=== PATIENT | female | born 1965 | race Two or more races ===

== ENCOUNTER 2019-12-31 12:39 | Outpatient (REF) | payer MEDICARE, MEDICAID, SELFPAY | END 2019-12-31 12:40 | disposition home or self-care (01) | LOC: HO.HMGCLDS 12:39 | PROVIDERS: PCP Internal Medicine; Visit Provider Internal Medicine | DX: Z20.828 Contact with and (suspected) exposure to other viral communicable diseases (principal) | CPT/HCPCS: 36415; 87635 ==

== ENCOUNTER → 2020-01-18 10:13 | Outpatient (BNVA) | payer MEDICARE, MEDICAID, SELFPAY | PROVIDERS: PCP Internal Medicine; Referring Provider Internal Medicine; Visit Provider Physician Assistant | DX: M65.4 Radial styloid tenosynovitis [de Quervain] (principal); M79.7 Fibromyalgia; G47.00 Insomnia, unspecified; Z88.8 Allergy status to other drugs, medicaments and biological substances | CPT/HCPCS: 20550; 99213; J1020 ==

== ENCOUNTER 2020-02-14 13:15 | Outpatient (REF) | payer MEDICARE, MEDICAID, SELFPAY ==
--- NOTE | 2020-02-14 13:16 | XR_ITS ---
EXAMINATION: XR SHOULDER, LEFT CLINICAL INFORMATION: Left shoulder pain COMPARISON: 06/02/2018 TECHNIQUE: Three views of the left shoulder. FINDINGS: There is no fracture or dislocation. The glenohumeral joint is well aligned. The joint space is maintained. The acromioclavicular joint is intact with mild hypertrophic degenerative change. The visualized lung is clear. The visualized ribs are intact. XR/XR shoulder LT min 2V IMPRESSION: Mild degenerative changes of the left acromioclavicular joint.
== END 2020-02-14 13:16 | disposition home or self-care (01) ==
LOC: HO.HOSX 13:15
PROVIDERS: PCP Internal Medicine; Referring Provider Internal Medicine; Visit Provider Physician Assistant
DX: M75.82 Other shoulder lesions, left shoulder (principal)
CPT/HCPCS: 20610; 73030; 99212; J1020

== ENCOUNTER → 2020-02-18 11:38 | Outpatient (BNVA) | payer MEDICARE, MEDICAID, SELFPAY | PROVIDERS: PCP Internal Medicine; Referring Provider Internal Medicine; Visit Provider Internal Medicine Gastroenterology | DX: K59.04 Chronic idiopathic constipation (principal); R10.9 Unspecified abdominal pain; E11.65 Type 2 diabetes mellitus with hyperglycemia; E03.9 Hypothyroidism, unspecified; E78.5 Hyperlipidemia, unspecified; R63.4 Abnormal weight loss; K21.9 Gastro-esophageal reflux disease without esophagitis; R79.89 Other specified abnormal findings of blood chemistry; Z79.899 Other long term (current) drug therapy; Z79.891 Long term (current) use of opiate analgesic; Z79.84 Long term (current) use of oral hypoglycemic drugs | CPT/HCPCS: Q3014 ==

== ENCOUNTER 2020-02-28 16:12 | Outpatient (REF) | payer MEDICARE, MEDICAID, SELFPAY ==
--- NOTE | 2020-02-28 | MM_ITS ---
EXAMINATION: MM BREAST SCREENING DIGITAL TOMOSYNTHESIS, BILATERAL CLINICAL INFORMATION: Screening. Asymptomatic. The lifetime risk of breast cancer based on the Tyrer-Cuzick Model is 3.7%. COMPARISON: Mammography: 09/22/2018 and studies dating back to TECHNIQUE: Digital breast tomosynthesis is performed in both the craniocaudal and mediolateral oblique views along with computer-aided detection (CAD). Synthesized 2D images are generated from the tomosynthesis. FINDINGS: There are scattered areas of fibroglandular density (ACR BI-RADS breast composition Category b). About the medial aspect of the right breast approximately 7.0 cm from nipple, there is a 4 mm partially circumscribed density without microcalcifications for which a spot compression view is recommended and if persistent, then ultrasound could be performed at that time. There is stable appearance of the left breast. MM/MM tomosynthesis screening BI IMPRESSION: Right breast density for further evaluation as described above. ASSESSMENT: BI-RADS 0: Incomplete - Need Additional Imaging Evaluation RECOMMENDATION: 1. Additional views of the right breast 2. Targeted ultrasound if warranted after review of the additional views. 3. Radiology department staff will contact the patient for additional imaging. This patient's information was entered into a reminder system with a target due date for their next mammogram.
== END 2020-02-28 16:13 | disposition home or self-care (01) ==
LOC: HO.MAMMO 16:12
PROVIDERS: Visit Provider Internal Medicine
DX: Z12.31 Encounter for screening mammogram for malignant neoplasm of breast (principal)
CPT/HCPCS: 77063; 77067

== ENCOUNTER 2020-03-20 09:59 | Outpatient (REF) | payer MEDICARE, MEDICAID, SELFPAY ==
--- NOTE | 2020-03-20 10:03 | MM_ITS ---
EXAMINATION: MM DIAGNOSTIC DIGITAL BREAST TOMOSYNTHESIS, RIGHT US TARGETED BREAST, RIGHT CLINICAL INFORMATION: A 4 x 3 mm density medial right breast. COMPARISON: Mammography: 02/28/2020 and studies dating back to 03/30/2011. TECHNIQUE: Digital breast tomosynthesis is performed. 2D images are generated from the tomosynthesis. The following views are obtained: Spot compression craniocaudal view as well as rolled medial and lateral views. FINDINGS: There are scattered areas of fibroglandular density (ACR BI-RADS breast composition Category b). There is persistence of a circumscribed density about the medial aspect of the right breast approximately 7 cm from the nipple but which appears to have a fatty notch and is adjacent to a vessel likely representing an intramammary lymph node. ULTRASOUND: Targeted ultrasound evaluation of the medial aspect of the right breast did not demonstrate any abnormal cystic or solid masses. No region of abnormal distal sound shadowing is seen. Results are discussed with the patient at time of visit. MM/MM tomosynthesis added views R IMPRESSION: Density medial aspect of the right breast likely represents a small lymph node. Recommend 6 month follow up right breast mammogram. ASSESSMENT: BI-RADS 3: Probably Benign. RECOMMENDATION: Diagnostic mammography in 6 months. This patient's information was entered into a reminder system with a target due date for their next mammogram.
--- NOTE | 2020-03-20 10:04 | US_ITS ---
EXAMINATION: US DIAGNOSTIC BREAST, RIGHT CLINICAL INFORMATION: Density medial aspect right breast. COMPARISON: Mammography of same day and dating back to 07/25/2015. TECHNIQUE: Ultrasound of the breast is performed with real-time erickson scale imaging and color Doppler. FINDINGS: Targeted ultrasound evaluation medial aspect of the right breast did not demonstrate any abnormal cystic or solid masses. No region of abnormal distal sound shadowing is seen. Results are discussed with the patient at time of visit. US/US breast RT limited IMPRESSION: Density medial aspect of the right breast likely represents a small lymph node. Image 6 month follow-up right breast mammogram. ASSESSMENT: BI-RADS 3: Probably Benign RECOMMENDATION: Diagnostic mammography in 6 months.
== END 2020-03-20 10:00 | disposition home or self-care (01) ==
LOC: HO.MAMMO 09:59
PROVIDERS: PCP Internal Medicine; Visit Provider Internal Medicine
DX: R92.2 Inconclusive mammogram (principal)
CPT/HCPCS: 76642; 77061; 77065

== ENCOUNTER 2020-03-23 11:49 | Emergency (ER) | payer MEDICARE, MEDICAID, SELFPAY ==
[2020-03-23 12:19] VITALS: BP 114/72; PULSE 73; RESP 18; TEMP 36.8; O2SAT 98; BMI 28.1
--- NOTE | 2020-03-23 13:43 | CT_ITS ---
EXAMINATION: CT CERVICAL SPINE WITHOUT CONTRAST CLINICAL INFORMATION: Bilateral upper extremity tingling and pain. Radiating pain hand to neck COMPARISON: None TECHNIQUE: 3 minutes and axial and 2 mm thin sagittal and coronal images of cervical spine were obtained. This CT examination was performed using dose optimization techniques as appropriate, variously including the following: *Automated exposure control *Adjustment of mA and/or kV according to patient size (this includes techniques or standardized protocols for targeted exams where dose is matched to indication/reason for exam; i.e. extremities or head) *Use of iterative reconstruction technique DLP: 507 mGy-cm FINDINGS: There is mild straightening of cervical lordosis. The vertebral heights, alignment and disc heights are normal. The craniovertebral junction appears normal. There is a small bone fragment in between the dens in the right lateral mass C1 ring on axial image 32/5. It is unchanged to previous CT neck exam 09/27/2019. Otherwise the C1-C2 alignment is normal. No visible acute fracture, dislocation or lytic process seen. The prevertebral and paravertebral soft tissues are normal. Lung apices are clear. The thyroid lobes are symmetrical and normal. There are small pulmonary cysts in both lung apices. CT/CT cervical spine wo con IMPRESSION: Mild straightening of cervical lordosis. No acute fracture dislocation. There is a small bone fragment in between the right C1 lateral mass and the dense unchanged since 09/27/2019 CT neck exam.
--- NOTE | 2020-03-23 13:43 | ECG_ITS ---
Test Reason : WEAKNESS Blood Pressure : / mmHG Vent. Rate : 063 BPM Atrial Rate : 063 BPM P-R Int : 164 ms QRS Dur : 082 ms QT Int : 414 ms P-R-T Axes : 052 022 013 degrees QTc Int : 423 ms Normal sinus rhythm with sinus arrhythmia Normal ECG When compared with ECG of 07-JUL-2018 14:56, No significant change was found Referred By: Anne Marie Carranza Electronically Signed By:DARRYL HERNANDEZ
[2020-03-23 14:15] LABS: MANUAL DIFF FLAG NO
[2020-03-23 14:33] LABS: C Reactive Protein 1.17 mg/dL (< or = 0.50)
[2020-03-23 14:35] LABS: Anion Gap 11 (12-20); Blood Urea Nitrogen 13 mg/dL (9-16); Calcium 9.2 mg/dL (8.4-10.2); Carbon Dioxide 26 mmol/L (22-29); Chloride 102 mmol/L (96-108); Creatinine Clr Calc Pharmacy 88.3; Estimated Glomerular Filt Rate > 60; Glucose Random 220 mg/dL (60-115); Magnesium 2.2 mg/dL (1.6-2.6); Potassium 4.3 mmol/l (3.3-5.1); Sodium 135 mmol/L (135-145)
--- NOTE | 2020-03-23 14:37 | ED_ITS ---
HPI - General Adult General Chief complaint: General Medical Stated complaint: HAND, NECK PAIN Time Seen by Provider: 03/23/20 13:30 Source: patient Mode of arrival: ambulatory History of Present Illness HPI narrative: 54-YEAR-OLD FEMALE WITH A PAST MEDICAL HISTORY OF CONSTIPATION, DIABETES, FIBROMYALGIA, GERD, INSOMNIA, PRESENTING TO THE ED COMPLAINING OF BILATERAL HAND > LEFT, UPPER BACK, AND NECK PAIN SINCE . DENIES KNOWN INJURY/TRAUMA OR BEING WORKED UP IN THE PAST. TAKES OXYCODONE AND 800 MG IBUPROFEN AT HOME WITHOUT RELIEF. PRESENTED TO ED TODAY DUE TO NUMBNESS/TINGLING IN 4-5TH DIGITS OF LEFT HAND THIS MORNING WHICH IS DIFFERENT FROM TYPICAL SYMPTOMS. DENIES DIRECT TRAUMA/FALLS. ADMITS PAIN RADIATES FROM BILATERAL HANDS TO NECK/HEAD. DENIES FEVER, CHILLS, WEAKNESS, CP/SOB, NAUSEA/VOMITING, INCONTINENCE/RETENTION Onset (ago): month(s) Related Data Home Medications Medication Instructions Recorded Confirmed fluticasone 100 mcg-salmeterol 50 1 inh INHALATION BID 01/18/20 02/18/20 mcg/dose blistr powdr for inhalation levothyroxine 25 mcg tablet 25 mcg PO DAILY 01/18/20 metformin 500 mg tablet 500 mg PO DAILY 01/18/20 02/18/20 loratadine 10 mg capsule 10 mg PO DAILY 02/05/20 ondansetron HCl 8 mg tablet 8 mg PO DAILY tab 02/05/20 02/18/20 oxycodone 5 mg tablet 5 mg PO Q8H PRN 02/05/20 simethicone 125 mg capsule 125 mg PO TID-QID PRN 02/05/20 vjrgtne-ogwmxqixanziv-xcogdiyz 250 1 tab PO Q4-6H PRN 02/18/20 02/18/20 mg-250 mg-65 mg tablet lubiprostone 24 mcg capsule 24 mcg PO BID 02/18/20 02/18/20 Previous Rx's Medication Instructions Recorded arm brace #1 ea 01/18/20 blood sugar diagnostic #100 ea 01/18/20 lancets 28 gauge #100 ea 01/18/20 blood sugar diagnostic #100 ea 01/25/20 cholecalciferol (vitamin D3) 1,250 1,250 mcg PO QWEEK 28 Days #4 cap 02/18/20 mcg (50,000 unit) capsule pantoprazole 20 mg tablet,delayed 20 mg PO BID 30 Days #60 tab 02/18/20 release sennosides 8.6 mg tablet 17.2 mg PO BEDTIME 30 Days #60 tab 02/18/20 ibuprofen 600 mg tablet 600 mg PO TID 7 Days #21 tab 03/05/20 oxycodone 5 mg tablet 5 mg PO BID PRN 30 Days #60 tab 03/05/20 zolpidem 10 mg tablet 10 mg PO BEDTIME PRN 30 Days #30 03/05/20 tab blood sugar diagnostic #150 ea 03/10/20 insulin glargine 100 unit/mL (3 20 unit SUBCUT DAILY 30 Days #6 ml 03/10/20 mL) subcutaneous pen lancets 28 gauge #100 ea 03/10/20 pen needle, diabetic 32 gauge x #50 ea 03/10/20 blood sugar diagnostic #100 ea 03/11/20 blood-glucose meter #1 ea 03/11/20 lancets #100 ea 03/11/20 cholecalciferol (vitamin D3) 50 50 mcg PO DAILY 30 Days #30 cap 03/13/20 mcg (2,000 unit) capsule cyclobenzaprine 5 mg PO Q8H PRN 5 Days #14 tab 03/23/20 Allergies Allergy/AdvReac Type Severity Reaction Status Date / Time pregabalin [From LYRICA] Allergy Intermediate STOMACH Verified 02/14/20 13:27 UPSET gadobutrol [From GADAVIST] Allergy Mild ANAPHYLAXIS Verified 02/14/20 13:27 hydroxychloroquine Allergy Unknown unknown Verified 02/14/20 13:27 [Plaquenil] Iodinated Contrast Media Allergy Unknown DIFF Verified 02/14/20 13:27 [CONTRAST, IV] BREATHING levofloxacin [From LEVAQUIN] Allergy Unknown ITCHY RASH Verified 02/14/20 13:27 tramadol Allergy Unknown abdominal Verified 02/14/20 13:27 pain contrast dye Allergy Unknown unknown Uncoded 01/18/20 10:24 lyrica Allergy Unknown swelling Uncoded 08/08/19 00:00 Plaquenil Allergy Unknown rash Uncoded 08/08/19 00:00 Statins Support Allergy Unknown transaminit Uncoded 08/08/19 00:00 is MRI contrast (gadolinium) AdvReac Unknown anaphylaxis Uncoded 08/08/19 00:00 Review of Systems Review of Systems: Constitutional: No Weight loss, No Fever, No Chills Eyes: No Vision Changes Cardiovascular: No Chest Pain, No SOB, No Edema, No Palpitations Respiratory: No Cough, No Sputum, No Wheezing, No Smoke Exposure, No Dyspnea Gastrointestinal: No Nausea, No Vomiting, No Diarrhea, No Constipation, No Abdominal pain Genitourinary: No irregular bleeding, No Dysuria, No Urinary Frequency, No Hematuria, No urinary incontinence or retention Musculoskeletal: + joint pain,+back/neck pain, + Myalgias, No Joint Swelling Skin: No Skin Lesions, No rash Neuro: No Weakness, + Numbness, + Paresthesias, No Dizziness, + Headache Yes all other systems are reviewed and are negative [facility] Past Medical History Attestation statement: The following information was validated with the patient. Medical History (Updated 03/23/20 @ 15:44 by LUIS A Hutton) Chronic idiopathic constipation Diabetes type 2, uncontrolled Fibromyalgia GERD (gastroesophageal reflux disease) Insomnia Low vitamin D level Weight loss Surgical History (Updated 02/23/20 @ 17:14 by Critsal Butler MD) History of esophagogastroduodenoscopy (EGD) History of thyroidectomy, total Hx of colonoscopy Family History Family History (Updated 02/23/20 @ 17:16 by Cristal Butler MD) Father Status post liver transplant, biliary anastomotic size mismatch Brother No problems noted. Mother No problems noted. Social History Social History Household Members: None Alcohol intake: never Smoking Status: Never smoker Smoked in Last 30 Days: No Use of substances other than those prescribed or required for medical reasons: No Advance Directives: No Advance Directives Information Provided: Yes Current occupational status: disabled Current occupation: rt handed Physical Exam Vital Signs: Vital Signs: Last Vital Signs Temp 98.3 F 03/23/20 12:19 Pulse 61 03/23/20 15:11 Resp 16 03/23/20 15:11 BP 102/49 L 03/23/20 15:11 Pulse Ox 98 03/23/20 15:11 Body Mass Index 28.1 Const: General: cooperative and healthy appearing Orientation/consciousness: patient oriented x3 Limitations: no limitations HENMT: Head: Yes normal to inspection Ears: hearing grossly normal bilaterally General nose exam: Normal external nose present Face and sinus: Yes normal facial exam Eyes: General: appearance normal, both eyes and all related structures EOM: EOMs intact bilaterally Neck: Other: + bilateral paraspinal MSK tenderness. No midline cervical spinous tenderness or step-offs. No deformity Neck: Yes normal visual inspection Resp: Effort & Inspection: normal respiratory effort Auscultation: clear to auscultation bilaterally, no rales, no rhonchi and no wheezes Cardio: Rate: regular rate Heart sounds: S1 normal heart sound present and S2 normal heart sound present Peripheral pulses: radial pulses present GI: Inspection: Yes normal to inspection Palpation (GI): Soft to palpation, nontender, no guarding and not rigid Back/Spine/Pelvis: Other: + bilateral MSK upper/midthoracic tenderness. No midline thoracic/lumbar spinous tenderness Skin: Rashes: no rashes Wounds: no wounds Neuro: Other: No saddle anesthesia General: patient oriented x3, tone normal and moves all extremities Gait exam (Neuro): Normal gait present Extrem: Other: Bilateral hand/wrist/distal forearm ttp. No appreciable deformity. NV & FROM intact +Phalen's sign General: Yes normal to inspection Course Course Course Narrative: * ESR mildly elevated at 37, CRP 1.1 * Troponin negative, labs otherwise unremarkable CT cervical spine wo con IMPRESSION: Mild straightening of cervical lordosis. No acute fracture dislocation. There is a small bone fragment in between the right C1 lateral mass and the dense unchanged since 09/27/2019 CT neck exam. * Lab and imaging results discussed with patient including worrisome signs and symptoms and strict return precautions. Patient is to follow-up with orthopedics and [facility] as well as her PCP. She verbalized understanding feel safe for discharge home Medical Decision Making MDM Narrative Medical decision making narrative: 54-YEAR-OLD FEMALE WITH A PAST MEDICAL HISTORY OF CONSTIPATION, DIABETES, FIBROMYALGIA, GERD, INSOMNIA, PRESENTING TO THE ED COMPLAINING OF BILATERAL HAND > LEFT, UPPER BACK, AND NECK PAIN SINCE . REPORTS NUMBNESS/TINGLING IN 4-5TH DIGITS OF LEFT HAND THIS MORNING WHICH IS DIFFERENT FROM TYPICAL SYMPTOMS. ON EXAM VSS, NAD/WELL-APPEARING, NO MIDLINE SPINOUS TENDERNESS/SADDLE ANESTHESIA OR RED FLAG SYMPTOMS. PHYSICAL EXAM ABOVE. CONCERN FOR POSSIBLE ? IMPINGEMENT/STENOSIS VS CARPAL TUNNEL VS FIBROMYALGIA. LOW CONCERN FOR SEPTIC JOINT/COMPARTMENT SYNDROME OR CAUDA EQUINA. RULE OUT ACS PLAN: EKG, LABS, CERVICAL SPINE CT, REASSESS Lab Data Result diagrams: 03/23/20 14:03 03/23/20 14:03 Labs: Lab Results 03/23/20 03/23/20 03/23/20 Range/Units 14:03 14:03 14:03 WBC 6.0 (4.8-10.8) X10*3/uL RBC 4.21 (4.20-5.50) X10*6/uL Hgb 12.4 (12.0-16.0) g/dl Hct 36.8 L (37-47) % MCV 87.4 (80-98) fL MCH 29.5 (27.0-33.0) pg MCHC 33.7 (31.0-35.0) g/dl RDW 12.1 (11.0-16.0) % Plt Count 288 (160-400) X10*3/uL MPV 9.2 L (9.4-12.3) fL Immature Gran % (Auto) 0.3 (0.0-0.4) % Neut % (Auto) 58.8 (45-73) % Lymph % (Auto) 34.1 (20-40) % Pickett % (Auto) 5.8 (2-11) % Eos % (Auto) 0.5 (0-4) % Baso % (Auto) 0.5 (0-2) % Lymph # (Auto) 2.1 (1.2-4.9) X10*3/uL Pickett # (Auto) 0.4 (0.1-1.2) X10*3/uL Eos # (Auto) 0.0 (0.0-0.4) X10*3/uL Baso # (Auto) 0.0 (0.0-0.2) X10*3/uL Abs Immat Gran (auto) 0.02 (0.00-0.03) X10*3/uL Absolute Neuts (auto) 3.5 (2.0-8.3) X10*3/uL Absolute Nucleated RBC 0.000 (0.0-0.012) X10*3/uL Nucleated RBC % (auto) 0.0 (0.0-0.2) /100WBC ESR (0-20) MM/HR Sodium 135 (135-145) mmol/L Potassium 4.3 (3.3-5.1) mmol/l Chloride 102 (96-108) mmol/L Carbon Dioxide 26 (22-29) mmol/L Anion Gap 11 L (12-20) BUN 13 (9-16) mg/dL Creatinine 0.80 (0.5-1.4) mg/dL Estim Creat Clear Calc 88.3 Estimated GFR > 60 Random Glucose 220 H (60-115) mg/dL Calcium 9.2 (8.4-10.2) mg/dL Magnesium 2.2 (1.6-2.6) mg/dL Troponin I High Sens < 3.5 (<3.5-17.0) ng/L C-Reactive Protein (< or = 0.50) mg/dL 03/23/20 03/23/20 Range/Units 14:03 14:03 WBC (4.8-10.8) X10*3/uL RBC (4.20-5.50) X10*6/uL Hgb (12.0-16.0) g/dl Hct (37-47) % MCV (80-98) fL MCH (27.0-33.0) pg MCHC (31.0-35.0) g/dl RDW (11.0-16.0) % Plt Count (160-400) X10*3/uL MPV (9.4-12.3) fL Immature Gran % (Auto) (0.0-0.4) % Neut % (Auto) (45-73) % Lymph % (Auto) (20-40) % Pickett % (Auto) (2-11) % Eos % (Auto) (0-4) % Baso % (Auto) (0-2) % Lymph # (Auto) (1.2-4.9) X10*3/uL Pickett # (Auto) (0.1-1.2) X10*3/uL Eos # (Auto) (0.0-0.4) X10*3/uL Baso # (Auto) (0.0-0.2) X10*3/uL Abs Immat Gran (auto) (0.00-0.03) X10*3/uL Absolute Neuts (auto) (2.0-8.3) X10*3/uL Absolute Nucleated RBC (0.0-0.012) X10*3/uL Nucleated RBC % (auto) (0.0-0.2) /100WBC ESR 37 H (0-20) MM/HR Sodium (135-145) mmol/L Potassium (3.3-5.1) mmol/l Chloride (96-108) mmol/L Carbon Dioxide (22-29) mmol/L Anion Gap (12-20) BUN (9-16) mg/dL Creatinine (0.5-1.4) mg/dL Estim Creat Clear Calc Estimated GFR Random Glucose (60-115) mg/dL Calcium (8.4-10.2) mg/dL Magnesium (1.6-2.6) mg/dL Troponin I High Sens (<3.5-17.0) ng/L C-Reactive Protein 1.17 H (< or = 0.50) mg/dL Discharge Plan Discharge Clinical Impression: Myalgia, Arm paresthesia, left Patient Disposition: Home, Self-Care Instructions: Musculoskeletal Pain (ED) Additional Instructions: Your blood work was reassuring today in the ED Your heart enzyme was negative A CT scan of her neck did not show any acute fracture or dislocation, showed old findings that were seen on prior CT neck in September of 2019 It is important for you to establish care with a spine doctor as well as an orthopedic doctor Follow-up with her primary care doctor Continue taking previously prescribed medications In addition start taking muscle relaxer, Flexeril, however take at night as it makes you drowsy, do not drive, drink alcohol, or operate machinery while taking it If pain persists or worsens, chest pain, shortness of breath, or weakness return to the ED [facility] [address] [place] [id number] Prescriptions: New cyclobenzaprine 5 mg tablet 5 mg PO Q8H PRN (Reason: pain (scale score 7-10)) 5 Days Qty: 14 RF: 0 No Action (DME) lancets [FreeStyle Lancets] 28 gauge misc See Rx Instructions .MEDSUPPLY Qty: 100 RF: 3 (DME) FreeStyle Test Strip See Rx Instructions .MEDSUPPLY Qty: 100 RF: 6 (DME) FreeStyle Lite Strips Strip See Rx Instructions .ROUTE .MEDSUPPLY Qty: 100 RF: 3 simethicone [Gas Relief (simethicone)] 125 mg capsule 125 mg PO TID-QID PRNRF: 0 ondansetron HCl 8 mg tablet 8 mg PO DAILY RF: 0 loratadine 10 mg capsule 10 mg PO DAILY RF: 0 oxycodone 5 mg tablet 5 mg PO Q8H PRNRF: 0 ibuprofen 600 mg tablet 600 mg PO TID 7 Days Qty: 21 RF: 0 oxycodone 5 mg tablet 5 mg PO BID PRN (Reason: pain) 30 Days Qty: 60 RF: 0 zolpidem 10 mg tablet 10 mg PO BEDTIME PRN (Reason: insomnia) 30 Days Qty: 30 RF: 0 Lantus Solostar U-100 Insulin 100 unit/mL (3 mL) insulin pen 20 unit subcut DAILY 30 Days Qty: 6 RF: 5 (DME) pen needle, diabetic [BD Alivia 2nd Gen Pen Needle] 32 gauge x 5/32 needle See Rx Instructions .MEDSUPPLY Qty: 50 RF: 4 (DME) FreeStyle Lite Strips Strip See Rx Instructions .ROUTE .MEDSUPPLY Qty: 150 RF: 6 (DME) lancets [FreeStyle Lancets] 28 gauge misc See Rx Instructions .MEDSUPPLY Qty: 100 RF: 6 (DME) blood-glucose meter [Accu-Chek Nettie Plus Meter] Misc See Rx Instructions .ROUTE .MEDSUPPLY Qty: 1 RF: 0 (DME) Accu-Chek Nettie Plus test strp Strip See Rx Instructions .ROUTE .MEDSUPPLY Qty: 100 RF: 6 (DME) lancets [Accu-Chek Fastclix Lancet Drum] Misc See Rx Instructions .ROUTE .MEDSUPPLY Qty: 100 RF: 6 cholecalciferol (vitamin D3) 50 mcg (2,000 unit) capsule 50 mcg PO DAILY 30 Days Qty: 30 RF: 3 Amitiza 24 mcg capsule 24 mcg PO BID RF: 0 Excedrin Migraine 250-250-65 mg tablet 1 tab PO Q4-6H PRNRF: 0 pantoprazole 20 mg tablet,delayed release (DR/EC) 20 mg PO BID 30 Days Qty: 60 RF: 4 sennosides [senna] 8.6 mg tablet 17.2 mg PO BEDTIME 30 Days Qty: 60 RF: 4 cholecalciferol (vitamin D3) 1,250 mcg (50,000 unit) capsule 1,250 mcg PO QWEEK 28 Days Qty: 4 RF: 2 levothyroxine 25 mcg tablet 25 mcg PO DAILY RF: 0 metformin 500 mg tablet 500 mg PO DAILY RF: 0 fluticasone propion-salmeterol [Advair Diskus] 100-50 mcg/dose blister with d evice 1 inh inhalation BID RF: 0 (DME) Wrist Brace Misc See Rx Instructions .MEDSUPPLY Qty: 1 RF: 0 Referrals: Sharon Mathias PA-C [Physician [facility] Of Field Operations] - 5 days
[2020-03-23 14:41] LABS: Troponin-I High Sensitivity < 3.5 ng/L (<3.5-17.0)
[2020-03-23 14:47] LABS: Basophils Percent Auto 0.5 % (0-2); Eosinophils Percent Auto 0.5 % (0-4); Hematocrit 36.8 % (37-47); Hemoglobin 12.4 g/dl (12.0-16.0); Imm Gran Abs Auto 0.02 X10*3/uL (0.00-0.03); Imm Gran Pct Auto 0.3 % (0.0-0.4); Lymphocytes Absolute Auto 2.1 X10*3/uL (1.2-4.9); Lymphocytes Percent Auto 34.1 % (20-40); Mean Corpuscular HGB Conc 33.7 g/dl (31.0-35.0); Mean Corpuscular Hemoglobin 29.5 pg (27.0-33.0); Mean Corpuscular Volume 87.4 fL (80-98); Mean Platelet Volume 9.2 fL (9.4-12.3); Monocytes Absolute Auto 0.4 X10*3/uL (0.1-1.2); Monocytes Percent Auto 5.8 % (2-11); Neutrophils Absolute Auto 3.5 X10*3/uL (2.0-8.3); Neutrophils Percent Auto 58.8 % (45-73); Platelet Count 288 X10*3/uL (160-400); Red Blood Count 4.21 X10*6/uL (4.20-5.50); Red Cell Distribution Width 12.1 % (11.0-16.0)
[2020-03-23] MEDS: Cyclobenzaprine HCl 10 MG TABLET PO (15:09)
[2020-03-23 15:11] VITALS: BP 102/49; PULSE 61; RESP 16; O2SAT 98
[2020-03-23 15:16] LABS: Erythrocyte Sedimentation Rate 37 MM/HR (0-20)
== END 2020-03-23 15:58 | disposition home or self-care (01) ==
PROVIDERS: Physician Assistant; Emergency Provider Emergency Medicine Emergency Medical Services; PCP Internal Medicine
DX: M79.10 Myalgia, unspecified site (principal); M54.2 Cervicalgia; R20.2 Paresthesia of skin; M79.602 Pain in left arm; Z79.899 Other long term (current) drug therapy
CPT/HCPCS: 36415; 72125; 80048; 83735; 84484; 85025; 85652; 86140; 93005; 99284

== ENCOUNTER → 2020-03-31 13:23 | Outpatient (BNVA) | payer MEDICARE, MEDICAID, SELFPAY | PROVIDERS: PCP Internal Medicine; Referring Provider Internal Medicine; Visit Provider Internal Medicine Endocrinology, Diabetes & Metabolism | DX: Z13.89 Encounter for screening for other disorder (principal) | CPT/HCPCS: Q3014 ==

== ENCOUNTER → 2020-04-04 14:44 | Outpatient (BNVA) | payer MEDICARE, MEDICAID, SELFPAY | PROVIDERS: PCP Internal Medicine; Visit Provider Student in an Organized Health Care Education/Training Program | DX: Z13.89 Encounter for screening for other disorder (principal) | CPT/HCPCS: Q3014 ==

== ENCOUNTER 2020-04-11 15:18 | Outpatient (REF) | payer MEDICARE, MEDICAID, SELFPAY ==
--- NOTE | 2020-04-11 15:25 | XR_ITS ---
EXAMINATION: XR HAND, LEFT CLINICAL INFORMATION: Pain COMPARISON: None TECHNIQUE: PA, lateral, and oblique views of the left hand. FINDINGS: No fracture or dislocation is seen. There is severe arthritis at the first JAIL joint with joint space narrowing and osteophyte formation. There may be mild radial subluxation of the first metacarpal bone with respect to the trapezium There is mild osteoarthritis at the DIP joints, greatest in the DIP joint of the second finger. Joint spaces are otherwise normal. Soft tissues are normal. 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 Mild osteoarthritis at the DIP joints.
== END 2020-04-11 15:19 | disposition home or self-care (01) ==
LOC: HO.XRAY 15:18
PROVIDERS: PCP Internal Medicine; Visit Provider Student in an Organized Health Care Education/Training Program
DX: M79.642 Pain in left hand (principal)
CPT/HCPCS: 73130

== ENCOUNTER 2020-05-08 08:47 | Outpatient (REF) | payer MEDICARE, MEDICAID, SELFPAY ==
--- NOTE | 2020-05-08 08:51 | EMG_ITS ---
Left median and ulnar motor and sensory studies were performed. Left radial sensory study was performed and paraspinal muscles were tested. IMPRESSION: 1. Mild left median neuropathy across carpal tunnel. 2. Mild left ulnar neuropathy across cubital tunnel. MD TRISTA Miller/ABE / [id number]
== END 2020-05-08 08:48 | disposition home or self-care (01) ==
LOC: HO.NEURO 08:47
PROVIDERS: Visit Provider Internal Medicine
DX: R20.0 Anesthesia of skin (principal)
CPT/HCPCS: 95886; 95909

== ENCOUNTER 2020-05-19 11:00 | Outpatient (REF) | payer MEDICARE, MEDICAID, SELFPAY | END 2020-05-19 11:01 | disposition home or self-care (01) | LOC: HO.LAB 11:00 | PROVIDERS: PCP Internal Medicine; Visit Provider Internal Medicine | DX: Z20.822 Contact with and (suspected) exposure to COVID-19 (principal) | CPT/HCPCS: 36415; C9803; U0003; U0005 ==

== ENCOUNTER 2020-06-25 12:53 | Outpatient (REF) | payer MEDICARE, MEDICAID, SELFPAY ==
[2020-06-25 14:32] LABS: Alanine Aminotransferase 18 U/L (0-31); Albumin Level 4.1 g/dL (3.5-5.0); Alkaline Phosphatase 90 U/L (39-117); Anion Gap 14 (12-20); Aspartate Amino Transferase 14 U/L (5-31); Bilirubin Total 0.5 mg/dL (0.0-1.0); Blood Urea Nitrogen 14 mg/dL (9-16); Carbon Dioxide 25 mmol/L (22-29); Chloride 101 mmol/L (96-108); Cholesterol 210 mg/dL; Estimated Glomerular Filt Rate > 60; Glucose Fasting 184 mg/dL (60-99); HDL Cholesterol 51 mg/dL; LDL Cholesterol Calculated 139 mg/dl; Potassium 4.1 mmol/L (3.3-5.1); Sodium 136 mmol/L (135-145); Total Protein 7.6 g/dL (6.5-8.0); Triglycerides 100 mg/dL
[2020-06-25 14:41] LABS: Estimated Average Glucose 237 mg/dL; Hemoglobin A1c % 9.9 %
[2020-06-25 14:54] LABS: Thyroid Stimulating Hormone 28.97 uIU/mL (0.32-4.0)
[2020-06-25 15:12] LABS: Vitamin B12 423 pg/mL (200-900)
[2020-06-25 15:22] LABS: Creatinine Urine 169.19 mg/dL; Microalbum/Creatinine Ratio Ur 6.5 ug/mg cr
[2020-06-26 05:52] LABS: LDL Cholesterol Direct 142 mg/dL (<100)
== END 2020-06-25 12:54 | disposition home or self-care (01) ==
LOC: HO.LAB 12:53
PROVIDERS: Student in an Organized Health Care Education/Training Program; PCP Internal Medicine; Visit Provider Internal Medicine Endocrinology, Diabetes & Metabolism
DX: E11.65 Type 2 diabetes mellitus with hyperglycemia (principal)
CPT/HCPCS: 36415; 80053; 80061; 82043; 82607; 83036; 83721; 84439; 84443

== ENCOUNTER → 2020-07-01 14:49 | Outpatient (BNVA) | payer MEDICARE, MEDICAID, SELFPAY | PROVIDERS: PCP Internal Medicine; Visit Provider Surgery | DX: N63.12 Unspecified lump in the right breast, upper inner quadrant (principal) | CPT/HCPCS: 99202 ==

== ENCOUNTER 2020-07-04 13:13 | Outpatient (REF) | payer MEDICARE, MEDICAID, SELFPAY ==
--- NOTE | ~2020-07-04 | CT_ITS ---
EXAMINATION: CT CHEST WITHOUT CONTRAST CLINICAL INFORMATION: Lung disorder. COMPARISON: Chest x-ray December 2016 TECHNIQUE: Multidetector volumetric CT imaging of the chest was done. Axial MIP volume rendering provided. Sagittal and coronal reformatted images were obtained. This CT examination was performed using dose optimization techniques as appropriate, variously including the following: *Automated exposure control *Adjustment of mA and/or kV according to patient size (this includes techniques or standardized protocols for targeted exams where dose is matched to indication/reason for exam; i.e. extremities or head) *Use of iterative reconstruction technique DLP: 282 mGy-cm FINDINGS: LUNGS: There is small apical bullous disease bilaterally, greater on the right than left. There are tiny scattered bilateral rounded calcifications, more prominent on the right greater than left, the largest measuring 2 mm compatible with calcified granulomas. Lungs otherwise clear. MEDIASTINUM: The mediastinum is normal. PLEURA: There is no pleural effusion. No pleural mass or thickening. AXILLA: No lymphadenopathy. UPPER ABDOMEN: Status post cholecystectomy. OSSEOUS STRUCTURES: Multilevel spondylosis of the dorsal spine manifested by endplate osteophytes at multiple levels along with mild disc space narrowing. No fracture or bone lesion. CT/CT chest wo con IMPRESSION: No acute disease. Minimal apical bullous disease. Small bilateral calcified nodules likely granulomas. No followup necessary for these benign-appearing nodules.
== END 2020-07-04 13:14 | disposition home or self-care (01) ==
LOC: HO.CT 13:13
PROVIDERS: PCP Internal Medicine; Visit Provider Internal Medicine
DX: J98.4 Other disorders of lung (principal)
CPT/HCPCS: 71250

== ENCOUNTER → 2020-07-07 13:30 | Outpatient (BNVA) | payer MEDICARE, MEDICAID, SELFPAY | PROVIDERS: PCP Internal Medicine; Visit Provider Internal Medicine Endocrinology, Diabetes & Metabolism | DX: E11.65 Type 2 diabetes mellitus with hyperglycemia (principal); E11.42 Type 2 diabetes mellitus with diabetic polyneuropathy; Z79.4 Long term (current) use of insulin; E89.0 Postprocedural hypothyroidism; E78.5 Hyperlipidemia, unspecified; R79.89 Other specified abnormal findings of blood chemistry | CPT/HCPCS: Q3014 ==

== ENCOUNTER → 2020-07-23 14:52 | Outpatient (BNVA) | payer MEDICARE, MEDICAID, SELFPAY | PROVIDERS: PCP Internal Medicine; Visit Provider Internal Medicine Pulmonary Disease | DX: J43.9 Emphysema, unspecified (principal); R06.00 Dyspnea, unspecified | CPT/HCPCS: 99202 ==

== ENCOUNTER 2020-10-01 12:41 | Outpatient (REF) | payer MEDICARE, MEDICAID, SELFPAY ==
--- NOTE | 2020-10-01 14:08 | PFT_ITS ---
INDICATION: COPD. SPIROMETRY: The FEV1 to FVC 80% with an FEV1 of 2.53 L, which is 85% predicted, and an FVC of 3.17 L, which is 82% predicted. No significant response to bronchodilators noted. Maximum voluntary ventilation 78% predicted. LUNG VOLUMES: Total lung capacity 89% predicted. DIFFUSION CAPACITY: DLCO 82% predicted. Flow volume loop appears to have some slight concavity to the expiratory limb suggesting an obstructive physiology, although not definitive based on the spirometry. COMPARISONS: PFTs in 2019. INTERPRETATION: No obstructive nor restrictive ventilatory defects identified. No significant response to bronchodilators noted. There is a mild decrease in maximum voluntary ventilation, which could be due to deconditioning. Lung volumes are within normal limits. Diffusion capacity within normal limits as well. Again, flow volume loop appears to have evidence of some obstructive physiology with a concavity in the expiratory limb. When compared to 2019, there is a trend increase in the FVC, no significant change in the FEV1, significant improvement in the total lung capacity, and a significant improvement in the diffusion capacity. Clinical correlation warranted. Kiko Garzon MD MR/MODL / [id number]
== END 2020-10-01 12:42 | disposition home or self-care (01) ==
LOC: HO.RESP 12:41
PROVIDERS: PCP Internal Medicine; Visit Provider Internal Medicine Pulmonary Disease
DX: R06.00 Dyspnea, unspecified (principal); R91.1 Solitary pulmonary nodule; J44.9 Chronic obstructive pulmonary disease, unspecified
CPT/HCPCS: 94060; 94727; 94729

== ENCOUNTER 2020-10-08 12:50 | Outpatient (REF) | payer MEDICARE, MEDICAID, SELFPAY ==
--- NOTE | ~2020-10-08 | MM_ITS ---
EXAMINATION: MM DIAGNOSTIC DIGITAL BREAST TOMOSYNTHESIS, RIGHT CLINICAL INFORMATION: Short interval six-month follow-up probable benign nodular asymmetry mid medial right breast. No ultrasound correlate. The lifetime risk of breast cancer based on the Tyrer-Cuzick Model is 11%. COMPARISON: Mammography: 03/20/2020, 02/28/2020 (BI-RADS 0), 04/24/2018, 08/19/2017; targeted right breast ultrasound 03/20/2020 TECHNIQUE: Digital breast tomosynthesis is performed in both the craniocaudal and mediolateral oblique views along with computer-aided detection (CAD). Synthesized 2D images are generated from the tomosynthesis. FINDINGS: There are scattered areas of fibroglandular density (ACR BI-RADS breast composition Category b). There is fine fibronodular parenchymal pattern similar to prior exams. The benign-appearing nodular asymmetry mid medial right breast is less conspicuous. There is no spiculation or associated calcification. No developing density. Right breast will be reassessed again at time of annual bilateral exam, due in 6 months. Results are provided to the patient at time of visit by the technologist. MM/MM tomosynthesis diagnostic RT IMPRESSION: Probable benign small nodular asymmetry mid medial breast stable to decreased. ASSESSMENT: BI-RADS 3: Probably Benign RECOMMENDATION: Diagnostic mammography at time of annual bilateral exam, due 6 months. This patient's information was entered into a reminder system with a target due date for their next mammogram.
== END 2020-10-08 12:51 | disposition home or self-care (01) ==
LOC: HO.MAMMO 12:50
PROVIDERS: Visit Provider Internal Medicine
DX: R92.2 Inconclusive mammogram (principal)
CPT/HCPCS: 77061; 77065

== ENCOUNTER → 2020-10-14 10:53 | Outpatient (BNVA) | payer MEDICARE, MEDICAID, SELFPAY | PROVIDERS: PCP Internal Medicine; Visit Provider Internal Medicine Endocrinology, Diabetes & Metabolism | DX: E11.65 Type 2 diabetes mellitus with hyperglycemia (principal); E11.42 Type 2 diabetes mellitus with diabetic polyneuropathy; E89.0 Postprocedural hypothyroidism; K21.9 Gastro-esophageal reflux disease without esophagitis; J45.909 Unspecified asthma, uncomplicated; E55.9 Vitamin D deficiency, unspecified; E78.5 Hyperlipidemia, unspecified; M85.80 Other specified disorders of bone density and structure, unspecified site; M79.7 Fibromyalgia; Z87.891 Personal history of nicotine dependence; Z88.8 Allergy status to other drugs, medicaments and biological substances; Z91.041 Radiographic dye allergy status; Z79.4 Long term (current) use of insulin; Z79.899 Other long term (current) drug therapy | CPT/HCPCS: 82947; 99212 ==

== ENCOUNTER 2020-10-30 13:45 | Outpatient (REF) | payer MEDICARE, MEDICAID, SELFPAY ==
--- NOTE | ~2020-10-30 | US_ITS ---
EXAMINATION: US ABDOMEN COMPLETE CLINICAL INFORMATION: Unspecified abdominal pain. COMPARISON: X-ray abdomen dated 12/25/2018. CT abdomen and pelvis without contrast dated 07/07/2018. Ultrasound abdomen complete dated 09/24/2016 and 12/30/2014. MR abdomen without and with contrast dated 07/02/2014. KUB dated 05/22/2014. TECHNIQUE: Real-time imaging of the abdominal viscera. Technically difficult study secondary to bowel gas. FINDINGS: PANCREAS: Head and body the pancreas are normal. The tail is not well visualized due to bowel gas. ABDOMINAL AORTA: The proximal, mid, and distal segments are normal in caliber. INFERIOR VENA CAVA: Visualized portions are normal. LIVER: The liver is normal in size. The liver contour is normal. Liver echotexture is slightly increased. No focal hepatic lesion. There is no intrahepatic biliary duct dilatation seen. GALLBLADDER: Surgically absent. COMMON BILE DUCT: The common bile duct measures 1.2 cm in diameter. This is unchanged prior exams and may be normal cholecystectomy. RIGHT KIDNEY: Normal. No hydronephrosis. No renal calculi or focal parenchymal lesions. The kidney measures 11.0 cm in maximum dimension. LEFT KIDNEY: Normal. No hydronephrosis. No renal calculi or focal parenchymal lesions. The kidney measures 11.0 cm in maximum dimension. SPLEEN: The spleen is slightly enlarged. The spleen measures 13.5 cm in maximum dimension. FREE FLUID: None. US/US abdomen complete IMPRESSION: Post cholecystectomy. Mild dilatation of the common bile duct. This is unchanged from previous ultrasound and may be normal postcholecystectomy. Slightly echogenic liver probably representing fatty infiltration. Slightly enlarged spleen. Limited visualization of the tail the pancreas.
== END 2020-10-30 13:46 | disposition home or self-care (01) ==
LOC: HO.US 13:45
PROVIDERS: PCP Internal Medicine; Visit Provider Internal Medicine
DX: R10.9 Unspecified abdominal pain (principal)
CPT/HCPCS: 76700

== ENCOUNTER → 2020-11-11 11:32 | Outpatient (BNVA) | payer MEDICARE, MEDICAID, SELFPAY | PROVIDERS: PCP Internal Medicine; Visit Provider Surgery | DX: N63.10 Unspecified lump in the right breast, unspecified quadrant (principal) | CPT/HCPCS: 99212 ==

== ENCOUNTER 2020-11-20 10:18 | Outpatient (REF) | payer MEDICARE, MEDICAID, SELFPAY ==
--- NOTE | ~2020-11-20 | XR_ITS ---
EXAMINATION: XR KNEE, RIGHT CLINICAL INFORMATION: Rheumatoid arthritis. COMPARISON: Prior radiographs, most recently 10/24/2019. TECHNIQUE: AP, lateral and sunrise views of the right knee are submitted. FINDINGS: Bony alignment and mineralization are normal. The lateral, medial and patellofemoral joint space compartments are well-maintained. There is mild peripheral osteophyte formation of the superior articular surface of the patella. No fracture or dislocation is seen. There is a very small joint effusion. No foreign body is seen. XR/XR knee RT 3V IMPRESSION: 1. There is mild osteoarthritic change of the patellofemoral joint space compartment of the right knee. 2. There is a very small right knee joint effusion. EXAMINATION: XR KNEE, LEFT CLINICAL INFORMATION: Rheumatoid arthritis. COMPARISON: Prior radiographs, most recently 10/24/2019. TECHNIQUE: AP, lateral and sunrise views views of the left knee are submitted. FINDINGS: Alignment and mineralization are normal. The lateral, medial and patellofemoral joint space compartments are well-maintained. There is slight peripheral osteophyte formation of the medial and patellofemoral joint space compartment. No fracture or dislocation is seen. There is a very small joint effusion. No foreign body is seen IMPRESSION: 1. There is minimal osteoarthritic change of the medial and patellofemoral joint space compartments of the left knee. 2. There is a very small left knee joint effusion.
--- NOTE | ~2020-11-20 | XR_ITS ---
EXAMINATION: XR KNEE, RIGHT CLINICAL INFORMATION: Rheumatoid arthritis. COMPARISON: Prior radiographs, most recently 10/24/2019. TECHNIQUE: AP, lateral and sunrise views of the right knee are submitted. FINDINGS: Bony alignment and mineralization are normal. The lateral, medial and patellofemoral joint space compartments are well-maintained. There is mild peripheral osteophyte formation of the superior articular surface of the patella. No fracture or dislocation is seen. There is a very small joint effusion. No foreign body is seen. XR/XR knee LT 3V IMPRESSION: 1. There is mild osteoarthritic change of the patellofemoral joint space compartment of the right knee. 2. There is a very small right knee joint effusion. EXAMINATION: XR KNEE, LEFT CLINICAL INFORMATION: Rheumatoid arthritis. COMPARISON: Prior radiographs, most recently 10/24/2019. TECHNIQUE: AP, lateral and sunrise views views of the left knee are submitted. FINDINGS: Alignment and mineralization are normal. The lateral, medial and patellofemoral joint space compartments are well-maintained. There is slight peripheral osteophyte formation of the medial and patellofemoral joint space compartment. No fracture or dislocation is seen. There is a very small joint effusion. No foreign body is seen IMPRESSION: 1. There is minimal osteoarthritic change of the medial and patellofemoral joint space compartments of the left knee. 2. There is a very small left knee joint effusion.
[2020-11-20 11:50] LABS: MANUAL DIFF FLAG NO
[2020-11-20 12:03] LABS: Basophils Percent Auto 0.4 % (0-2); Eosinophils Absolute Auto 0.1 X10*3/uL (0.0-0.4); Eosinophils Percent Auto 1.3 % (0-4); Hematocrit 36.4 % (37-47); Hemoglobin 12.1 g/dl (12.0-16.0); Imm Gran Abs Auto 0.01 X10*3/uL (0.00-0.03); Imm Gran Pct Auto 0.2 % (0.0-0.4); Lymphocytes Absolute Auto 1.8 X10*3/uL (1.2-4.9); Lymphocytes Percent Auto 39.9 % (20-40); Mean Corpuscular HGB Conc 33.2 g/dl (31.0-35.0); Mean Corpuscular Hemoglobin 29.3 pg (27.0-33.0); Mean Corpuscular Volume 88.1 fL (80-98); Mean Platelet Volume 9.5 fL (9.4-12.3); Monocytes Absolute Auto 0.3 X10*3/uL (0.1-1.2); Monocytes Percent Auto 6.4 % (2-11); Neutrophils Absolute Auto 2.4 X10*3/uL (2.0-8.3); Neutrophils Percent Auto 51.8 % (45-73); Platelet Count 224 X10*3/uL (160-400); Red Blood Count 4.13 X10*6/uL (4.20-5.50); Red Cell Distribution Width 12.3 % (11.0-16.0); White Blood Count 4.5 X10*3/uL (4.8-10.8)
[2020-11-20 12:40] LABS: Alanine Aminotransferase 30 U/L (0-31); Albumin Level 4.3 g/dL (3.5-5.0); Alkaline Phosphatase 106 U/L (39-117); Anion Gap 9 (12-20); Aspartate Amino Transferase 21 U/L (5-31); Bilirubin Total 0.5 mg/dL (0.0-1.0); Blood Urea Nitrogen 16 mg/dL (9-16); C Reactive Protein 0.36 mg/dL (< or = 0.50); Calcium 9.8 mg/dL (8.4-10.2); Carbon Dioxide 28 mmol/L (22-29); Chloride 102 mmol/L (96-108); Estimated Glomerular Filt Rate > 60; Glucose Random 284 mg/dL (60-115); Potassium 4.2 mmol/L (3.3-5.1); Sodium 135 mmol/L (135-145); Total Protein 8.2 g/dL (6.5-8.0)
[2020-11-20 13:17] LABS: Erythrocyte Sedimentation Rate 31 MM/HR (0-20)
[2020-11-21 05:08] LABS: HBc Num1 0.08 S/CO (0.00-0.79); HBsAGNum1 0.21 S/CO (0.00-0.99); Hepatitis A Antibody IgM 0.16 Index (0-0.79); Hepatitis B Core Antibody Nonreactive (Nonreactive); Hepatitis B Surface Antigen Negative (Negative); ~Hepatitis A Antibody IgM Nonreactive (Nonreactive); ~Hepatitis C Antibody Nonreactive (Nonreactive)
[2020-11-21 05:13] LABS: HBS Num1 0.36 mIU/mL (0-7.99); ~Hepatitis B Surface Antibody NONREACTIVE (Nonreactive)
[2020-11-23 14:01] LABS: TS Negative Control Passed; TS Panel A 0; TS Panel B 0; TS Positive Control Passed; TSpotTB Negative (SeeBelow)
== END 2020-11-20 10:19 | disposition home or self-care (01) ==
LOC: HO.LAB 10:18
PROVIDERS: PCP Internal Medicine; Visit Provider Student in an Organized Health Care Education/Training Program
DX: M06.00 Rheumatoid arthritis without rheumatoid factor, unspecified site (principal); M19.90 Unspecified osteoarthritis, unspecified site
CPT/HCPCS: 36415; 73562; 80053; 85025; 85652; 86140; 86481; 86704; 86706; 86709; 86803; 87340; 99212

== ENCOUNTER → 2020-11-27 13:01 | Outpatient (BNVA) | payer MEDICARE, MEDICAID, SELFPAY | PROVIDERS: PCP Internal Medicine; Visit Provider Physician Assistant | DX: Z12.11 Encounter for screening for malignant neoplasm of colon (principal); K21.9 Gastro-esophageal reflux disease without esophagitis | CPT/HCPCS: Q3014 ==

== ENCOUNTER 2020-12-03 13:03 | Outpatient (REF) | payer MEDICARE, MEDICAID, SELFPAY | END 2020-12-03 13:04 | disposition home or self-care (01) | LOC: HO.LAB 13:03 | PROVIDERS: PCP Internal Medicine; Visit Provider Internal Medicine | DX: Z20.822 Contact with and (suspected) exposure to COVID-19 (principal) | CPT/HCPCS: 36415; 87635; C9803; U0003; U0005 ==

== ENCOUNTER → 2020-12-04 10:21 | Outpatient (BNVA) | payer MEDICARE, MEDICAID, SELFPAY | PROVIDERS: PCP Internal Medicine; Visit Provider Student in an Organized Health Care Education/Training Program | CPT/HCPCS: Q3014 ==

== ENCOUNTER 2020-12-15 12:25 | Outpatient (REF) | payer MEDICARE, MEDICAID, SELFPAY | END 2020-12-15 12:26 | disposition home or self-care (01) | LOC: HO.LAB 12:25 | PROVIDERS: PCP Internal Medicine; Visit Provider Internal Medicine | DX: Z20.822 Contact with and (suspected) exposure to COVID-19 (principal) | CPT/HCPCS: C9803; U0003; U0005 ==

== ENCOUNTER 2021-01-30 16:08 | Outpatient (REF) | payer MEDICARE, MEDICAID, SELFPAY ==
[2021-01-30 16:32] LABS: MANUAL DIFF FLAG NO
[2021-01-30 16:59] LABS: Basophils Percent Auto 0.4 % (0-2); Eosinophils Absolute Auto 0.1 X10*3/uL (0.0-0.4); Eosinophils Percent Auto 1.1 % (0-4); Hematocrit 37.5 % (37.0-47.0); Hemoglobin 12.3 g/dl (12.0-16.0); Lymphocytes Absolute Auto 2.1 X10*3/uL (1.2-4.9); Lymphocytes Percent Auto 45.5 % (20-40); Mean Corpuscular HGB Conc 32.8 g/dl (31.0-35.0); Mean Corpuscular Hemoglobin 29.3 pg (27.0-33.0); Mean Corpuscular Volume 89.3 fL (80.0-98.0); Mean Platelet Volume 9.3 fL (9.4-12.3); Monocytes Absolute Auto 0.3 X10*3/uL (0.1-1.2); Monocytes Percent Auto 5.4 % (2-11); Neutrophils Absolute Auto 2.2 x10*3/uL (2.0-8.3); Neutrophils Percent Auto 47.6 % (45-73); Platelet Count 244 X10*3/uL (160-400); Red Cell Distribution Width 12.9 % (11.0-16.0); White Blood Count 4.6 X10*3/uL (4.8-10.8)
[2021-01-30 17:23] LABS: Alanine Aminotransferase 21 U/L (0-31); Albumin Level 4.3 g/dL (3.5-5.0); Alkaline Phosphatase 94 U/L (39-117); Anion Gap 10 (12-20); Aspartate Amino Transferase 19 U/L (5-31); Bilirubin Total 0.7 mg/dL (0.0-1.0); Blood Urea Nitrogen 15 mg/dL (9-16); C Reactive Protein 0.42 mg/dL (< or = 0.50); Calcium 9.4 mg/dL (8.4-10.2); Carbon Dioxide 27 mmol/L (22-29); Chloride 105 mmol/L (96-108); Estimated Glomerular Filt Rate 49; Glucose Random 234 mg/dL (60-115); Potassium 4.1 mmol/L (3.3-5.1); Sodium 138 mmol/L (135-145); Total Protein 8.2 g/dL (6.5-8.0)
[2021-01-30 17:43] LABS: Erythrocyte Sedimentation Rate 23 MM/HR (0-20); Free T4 (Free Thyroxine) 1.31 ng/dL (0.71-1.85)
[2021-01-31 03:30] LABS: Cholesterol 179 mg/dL; HDL Cholesterol 49 mg/dL; LDL Cholesterol Calculated 95 mg/dl; Triglycerides 179 mg/dL
[2021-01-31 03:37] LABS: Creatinine Urine 199.47 mg/dL; Microalbum/Creatinine Ratio Ur 5.5 ug/mg cr
[2021-01-31 03:50] LABS: Thyroid Stimulating Hormone 3.57 uIU/mL (0.32-4.0)
[2021-02-04 15:37] LABS: Vitamin D 25-OH, D2 <4 ng/mL; Vitamin D 25-OH, D3 24 ng/mL; Vitamin D 25-OH, Total 24 ng/mL (30-100)
== END 2021-01-30 16:09 | disposition home or self-care (01) ==
LOC: HO.LAB 16:08
PROVIDERS: Internal Medicine Endocrinology, Diabetes & Metabolism; PCP Internal Medicine; Visit Provider Nurse Practitioner Family
DX: Z13.89 Encounter for screening for other disorder (principal)
CPT/HCPCS: 36415; 80053; 80061; 82043; 82306; 84439; 84443; 85025; 85652; 86140

== ENCOUNTER 2021-01-30 16:45 | Emergency (ER) | payer MEDICARE, MEDICAID, SELFPAY ==
[2021-01-30 17:06] VITALS: BP 121/74; PULSE 63; RESP 18; TEMP 36.9; O2SAT 100; BMI 29.7
--- NOTE | 2021-01-30 21:09 | ED.NECK ---
HPI - Neck Pain/Injury General Chief Complaint: Neck Pain/Injury Stated Complaint: rt side of neck pain Time Seen by Provider: 01/30/21 21:08 Source: patient Mode of arrival: ambulatory Limitations: no limitations History of Present Illness HPI Narrative: Right side of neck pain radiated down to the upper scapular area on the her right side, also radiate up to the base of the skull, pain is constant, 10/10 started about a month ago but getting worse over the past 2 weeks, patient declined any strenuous activity or heavy lifting. Patient was seen by her PCP for same issue and send blood workup in the morning. Related Data Home Medications Medication Instructions Recorded Confirmed laitfvq-[id number] 250 1 tab PO Q4-6H PRN 02/18/20 10/14/20 mg-250 mg-65 mg tablet (Excedrin Migraine) lubiprostone 24 mcg capsule 24 mcg PO BID 02/18/20 10/14/20 (Amitiza) albuterol sulfate 90 mcg/actuation INHALATION 03/31/20 10/14/20 aerosol inhaler baclofen 5 mg tablet 5 mg PO DAILY tab 07/07/20 10/14/20 nortriptyline 10 mg capsule 10 mg PO DAILY cap 07/07/20 10/14/20 duloxetine 20 mg capsule,delayed mg PO 10/07/20 10/14/20 release Previous Rx's Medication Instructions Recorded arm brace (Wrist Brace) #1 ea 01/18/20 sennosides 8.6 mg tablet (senna) 17.2 mg PO BEDTIME 30 Days #60 tab 02/18/20 cyclobenzaprine 5 mg tablet 5 mg PO Q8H PRN 5 Days #14 tab 03/23/20 cholecalciferol (vitamin D3) 1,250 1,250 mcg PO QWEEK 28 Days #4 cap 04/03/20 mcg (50,000 unit) capsule pantoprazole 20 mg tablet,delayed 20 mg PO BID #60 tab 05/16/20 release loratadine 10 mg capsule 10 mg PO DAILY 90 Days #90 cap 06/19/20 ondansetron HCl 8 mg tablet 8 mg PO DAILY 90 Days #90 tab 06/19/20 cholecalciferol (vitamin D3) 50 50 mcg PO DAILY 30 Days #30 cap 07/07/20 mcg (2,000 unit) capsule ezetimibe 10 mg tablet (Zetia) 10 mg PO DAILY 30 Days #30 tab 07/07/20 levothyroxine 175 mcg tablet 175 mcg PO DAILY 90 Days #90 tab 10/14/20 metformin 500 mg tablet 1,000 mg PO BID 30 Days #120 tab 10/14/20 pen needle, diabetic 32 gauge x #150 ea 10/14/20 (BD Alivia 2nd Gen Pen Needle) Accu-Chek Softclix Lancets #300 ea NS 10/16/20 (lancets) miscellaneous medical supply 1 ea MISCELLANEOUS DAILY #1 ea 11/20/20 bisacodyl 5 mg tablet,delayed 10 mg PO ONCE 1 Days #2 tab 12/04/20 release (Dulcolax (bisacodyl)) folic acid 1 mg tablet 1 mg PO DAILY #30 tab 12/04/20 methotrexate sodium 2.5 mg tablet 10 mg PO QWEEK #16 tab 12/04/20 polyethylene glycol 3350 17 238 g PO ONCE 1 Days #238 g 12/04/20 gram/dose oral powder (Miralax) Accu-Chek Guide test strips (blood #300 ea NS 12/31/20 sugar diagnostic) lancets (Accu-Chek Fastclix Lancet #100 ea 12/31/20 Drum) Accu-Chek Nettie Plus Meter #1 ea NS 01/01/21 (blood-glucose meter) Accu-Chek Nettie Plus test strp #100 ea NS 01/01/21 (blood sugar diagnostic) oxycodone 10 mg tablet 10 mg PO Q6H PRN 30 Days #120 tab 01/06/21 zolpidem 10 mg tablet 10 mg PO BEDTIME PRN 30 Days #30 01/06/21 tab insulin glargine 100 unit/mL (3 60 unit (0.6 mL) SUBCUT DAILY 30 01/15/21 mL) subcutaneous pen (Lantus Days #18 ml Solostar U-100 Insulin) insulin lispro 100 unit/mL 15 unit (0.15 mL) SUBCUT TID #15 ml 01/15/21 subcutaneous cartridge (Humalog U-100 Insulin) Allergies Allergy/AdvReac Type Severity Reaction Status Date / Time hydroxychloroquine Allergy Intermediate rash,facial Verified 01/15/21 14:15 [Plaquenil] swelling levofloxacin [From LEVAQUIN] Allergy Intermediate ITCHY RASH Verified 01/15/21 14:15 pregabalin [From LYRICA] Allergy Intermediate STOMACH Verified 01/15/21 14:15 UPSET tramadol Allergy Intermediate abdominal Verified 01/15/21 14:15 pain gadobutrol [From GADAVIST] Allergy Mild ANAPHYLAXIS Verified 01/15/21 14:15 Iodinated Contrast Media Allergy Unknown DIFF Verified 01/15/21 14:15 [CONTRAST, IV] BREATHING Statins Support Allergy Intermediate transaminit Uncoded 01/15/21 14:15 is contrast dye Allergy Unknown unknown Uncoded 01/15/21 14:15 lyrica Allergy Unknown swelling Uncoded 01/15/21 14:15 Plaquenil Allergy Unknown rash Uncoded 01/15/21 14:15 MRI contrast (gadolinium) AdvReac Unknown anaphylaxis Uncoded 01/15/21 14:15 Review of Systems Review of Systems: All other systems are reviewed and are negative Constitutional: Reports as per HPI and Reports no additional constitutional complaints Eyes: Reports as per HPI and Reports no additional eye complaints Reports system reviewed and no additional complaints, except as documented Cardiovascular: Reports as per HPI and Reports no additional cardiovascular complaints Respiratory: Reports as per HPI and Reports no additional respiratory complaints Gastrointestinal: Reports as per HPI and Reports no additional gastrointestinal complaints Genitourinary: Reports no additional female genitourinary complaints Musculoskeletal: Reports no additional musculoskeletal complaints Skin/Breast: Reports system reviewed and no additional complaints, except as docu Psychiatric: Reports no additional psychiatric complaints Endocrine: Reports no additional endocrine complaints Hematologic/Lymphatic: Reports no additional hematologic/lymphatic complaints Allergic/Immunologic: Reports no additional allergic/immunologic complaints Reports system reviewed and no additional complaints, except as documented and Reports Abnormal speech present [facility] Past Medical History Medical History Abdominal pain Autoimmune thyroiditis Bilateral hand numbness Bipolar 1 disorder Breast mass, right Chronic idiopathic constipation Diabetes type 2, uncontrolled Diabetic polyneuropathy associated with type 2 diabetes mellitus Dyslipidemia Fibromyalgia GERD (gastroesophageal reflux disease) Inflammatory arthritis Insomnia snf (current) use of insulin Low vitamin D level Lung cyst Neck pain Post-surgical hypothyroidism Weight loss Surgical History History of esophagogastroduodenoscopy (EGD) History of hysterectomy History of thyroidectomy, total Hx of colonoscopy (1998) Family History Family History Father Status post liver transplant, biliary anastomotic size mismatch Brother No problems noted. Mother No problems noted. Maternal Aunt Breast cancer Other Mental health problem Substance abuse Social History Social History Household Members: None Housing: House Alcohol intake: never Patient Tobacco Use Status: Former Tobacco user Cigarettes Per Day: 7 Years Smoked: 6 e-Cigarette/Vaping Use: Never Used Second Hand Smoke Exposure: No Advance Directives: No Advance Directives Information Provided: No Patient : No service: No Current occupational status: disabled Physical Exam Vital Signs: Vital Signs: Last Vital Signs Temp 98.4 F 01/30/21 17:06 Pulse 63 01/30/21 17:06 Resp 18 01/30/21 17:06 BP 121/74 01/30/21 17:06 Pulse Ox 100 01/30/21 17:06 Body Mass Index 29.7 Vital signs have been reviewed as appeared to be correct. Blood pressure normal. Heart rate normal. Respiration rate normal. Temperature normal. Oxygen saturation normal. Appearance: Alert. Oriented X3. No acute distress. Head: Normal external exam. Normocephalic. Atraumatic. No Mays signs noted. No raccoon eyes noted Eyes: PERRLA. EOMI. Conjunctiva and sclera normal. Eyelids normal. ENT: TM's Normal. Pharynx normal. Uvula midline. Moist mucous membranes. No trismus noted. No drooling noted. No muffled voice noted. Neck: Normal inspection. Neck supple. FROM. Increase shooting pain radiating to the right shoulder and right scapular area with turning the head to the left side or raising the right arm above the head. CVS: Normal heart rate and rhythm. Heart sound normal. No murmurs noted. Pulses normal throughout. Respiratory: No respiratory distress. Painless inspiration. Breath sounds normal. No wheezes/rales/rhonchi noted. Chest nontender. No accessory muscle usage noted or decreased air movement noted. Abdomen: Soft and nontender. Bowel sounds normal in all 4 quadrants. No distention noted. No organomegaly noted. No visible injury noted. Back: No CVA tenderness. Full range of motion noted. Skin: Skin warm and dry. Normal skin color. Normal skin turgor. No rashes/lesions/lacerations noted. Extremities: No lower extremity edema. Extremities exhibit normal range of motion. Extremities nontender. Neuro: Oriented X 3. Cranial nerve exam: II-XII are grossly intact No motor deficit. No sensory deficit. Reflexes normal. Course Course Course Narrative: Assessment and plan. 55-year-old female came in with a right side cervical radiculopathy, patient was instructed to apply heating pad, rest, follow-up with PCP. Discharge Plan Discharge Clinical Impression: Cervical radiculopathy Patient Disposition: Home, Self-Care Instructions: Cervical Radiculopathy (ED) Prescriptions: No Action pantoprazole 20 mg tablet,delayed release (DR/EC) 20 mg PO BID Qty: 60 RF: 3 (DME) lancets [Accu-Chek Softclix Lancets] Misc See Rx Instructions .ROUTE .MEDSUPPLY Qty: 300 RF: 1 (DME) lancets [Accu-Chek Fastclix Lancet Drum] Misc See Rx Instructions .MEDSUPPLY Qty: 100 RF: 6 (DME) Accu-Chek Guide test strips Strip See Rx Instructions .ROUTE .MEDSUPPLY Qty: 300 RF: 1 (DME) blood-glucose meter [Accu-Chek Nettie Plus Meter] Misc See Rx Instructions .ROUTE .MEDSUPPLY Qty: 1 RF: 0 (DME) Accu-Chek Nettie Plus test strp Strip See Rx Instructions .ROUTE .MEDSUPPLY Qty: 100 RF: 11 zolpidem 10 mg tablet 10 mg PO BEDTIME PRN (Reason: insomnia) 30 Days Qty: 30 RF: 0 oxycodone 10 mg tablet 10 mg PO Q6H PRN (Reason: pain) 30 Days Qty: 120 RF: 0 cyclobenzaprine 5 mg tablet 5 mg PO Q8H PRN (Reason: pain (scale score 7-10)) 5 Days Qty: 14 RF: 0 cholecalciferol (vitamin D3) 1,250 mcg (50,000 unit) capsule 1,250 mcg PO QWEEK 28 Days Qty: 4 RF: 2 duloxetine 20 mg capsule,delayed release(DR/EC) PO RF: 0 loratadine 10 mg capsule 10 mg PO DAILY 90 Days Qty: 90 RF: 3 ondansetron HCl 8 mg tablet 8 mg PO DAILY 90 Days Qty: 90 RF: 3 nortriptyline 10 mg capsule 10 mg PO DAILY RF: 0 Lantus Solostar U-100 Insulin 100 unit/mL (3 mL) insulin pen 60 unit subcut DAILY 30 Days Qty: 18 RF: 4 Humalog U-100 Insulin 100 unit/mL cartridge 15 unit subcut TID Qty: 15 RF: 0 albuterol sulfate 90 mcg/actuation HFA aerosol inhaler inhalation RF: 0 Amitiza 24 mcg capsule 24 mcg PO BID RF: 0 Excedrin Migraine 250-250-65 mg tablet 1 tab PO Q4-6H PRNRF: 0 sennosides [senna] 8.6 mg tablet 17.2 mg PO BEDTIME 30 Days Qty: 60 RF: 4 (DME) Wrist Brace Misc See Rx Instructions .MEDSUPPLY Qty: 1 RF: 0 (DME) pen needle, diabetic [BD Alivia 2nd Gen Pen Needle] 32 gauge x 5/32 needle See Rx Instructions .MEDSUPPLY Qty: 150 RF: 4 metformin 500 mg tablet 1,000 mg PO BID 30 Days Qty: 120 RF: 4 levothyroxine 175 mcg tablet 175 mcg PO DAILY 90 Days Qty: 90 RF: 3 methotrexate sodium 2.5 mg tablet 10 mg PO QWEEK Qty: 16 RF: 2 folic acid 1 mg tablet 1 mg PO DAILY Qty: 30 RF: 3 baclofen 5 mg tablet 5 mg PO DAILY RF: 0 cholecalciferol (vitamin D3) 50 mcg (2,000 unit) capsule 50 mcg PO DAILY 30 Days Qty: 30 RF: 3 ezetimibe [Zetia] 10 mg tablet 10 mg PO DAILY 30 Days Qty: 30 RF: 6 bisacodyl [Dulcolax (bisacodyl)] 5 mg tablet,delayed release (DR/EC) 10 mg PO ONCE 1 Days Qty: 2 RF: 0 polyethylene glycol 3350 [Miralax] 17 gram/dose powder 238 g PO ONCE 1 Days Qty: 238 RF: 0 miscellaneous medical supply Misc 1 ea miscellaneous DAILY Qty: 1 RF: 0 Referrals: Becca Sprague MD [Primary Care Provider] - 2 days
== END 2021-01-30 21:37 | disposition home or self-care (01) ==
PROVIDERS: Emergency Provider Emergency Medicine; PCP Internal Medicine
DX: M54.12 Radiculopathy, cervical region (principal); E11.9 Type 2 diabetes mellitus without complications; Z79.4 Long term (current) use of insulin
CPT/HCPCS: 36415; 80053; 80061; 82043; 82306; 84439; 84443; 85025; 85652; 86140; 99283

== ENCOUNTER → 2021-02-05 12:57 | Outpatient (BNVA) | payer MEDICARE, MEDICAID, SELFPAY | PROVIDERS: PCP Internal Medicine; Visit Provider Nurse Practitioner Family | DX: M06.00 Rheumatoid arthritis without rheumatoid factor, unspecified site (principal) | CPT/HCPCS: 99212 ==

== ENCOUNTER 2021-03-05 14:37 | Emergency (ER) | payer MEDICARE, MEDICAID, SELFPAY ==
--- NOTE | ~2021-03-05 | CT_ITS ---
EXAMINATION: CT ABDOMEN AND PELVIS WITHOUT CONTRAST CLINICAL INFORMATION: Fecal impaction. COMPARISON: CT scan abdomen pelvis 07/07/2018 TECHNIQUE: Multidetector volumetric imaging was performed from the superior aspect of the liver through the pubic symphysis. Sagittal and coronal reformatted images were obtained on the technologist's workstation. This CT examination was performed using dose optimization techniques as appropriate, variously including the following: *Automated exposure control *Adjustment of mA and/or kV according to patient size (this includes techniques or standardized protocols for targeted exams where dose is matched to indication/reason for exam; i.e. extremities or head) *Use of iterative reconstruction technique DLP: 565 mGy-cm FINDINGS: LUNG BASES: The visualized lung bases are unremarkable. LIVER, GALLBLADDER, AND BILIARY TREE: The liver is normal in size, shape, and attenuation. No focal hepatic lesion or biliary ductal dilatation is present. Status post cholecystectomy. Dilatation of extrahepatic CBD to a diameter 1.6 cm is chronic. No calcified stone in the bile duct. PANCREAS: Unremarkable. SPLEEN: Unremarkable. ADRENAL GLANDS: Unremarkable. KIDNEYS AND URETERS: The kidneys are normal in size, shape, and attenuation. No hydronephrosis, hydroureter, or calculi seen. No perinephric stranding. BLADDER: Unremarkable. GASTROINTESTINAL TRACT: No acute abnormality. There is no bowel wall thickening /edema. There is no bowel obstruction. There is a moderate to large volume of stool in the colon. Most of the stool is in the right colon. Small volume of scattered stool in the left colon and sigmoid. There is no fecal impaction. The appendix is normal . The small bowel loops are unremarkable. The stomach is normal. There is no hiatal hernia. ABDOMINAL WALL: No significant hernia is appreciated. LYMPH NODES: Normal. VASCULAR: Unremarkable. PELVIC VISCERA: Unremarkable. OSSEOUS STRUCTURES: Unremarkable. CT/CT abdomen pelvis wo con IMPRESSION: No acute abnormality CT scan abdomen and pelvis. Moderate to large-volume of stool in the colon. There is no fecal impaction. No acute abnormality of the bowel. Fleischner guidelines were followed.
[2021-03-05 15:47] VITALS: BP 156/67; PULSE 65; RESP 16; TEMP 36.3; O2SAT 98
[2021-03-05 16:06] LABS: MANUAL DIFF FLAG NO
[2021-03-05 16:08] LABS: Basophils Percent Auto 0.2 % (0-2); Eosinophils Percent Auto 0.4 % (0-4); Hematocrit 37.7 % (37.0-47.0); Hemoglobin 12.4 g/dl (12.0-16.0); Imm Gran Abs Auto 0.01 X10*3/uL (0.00-0.03); Imm Gran Pct Auto 0.2 % (0.0-0.4); Lymphocytes Absolute Auto 1.5 X10*3/uL (1.2-4.9); Lymphocytes Percent Auto 32.1 % (20-40); Mean Corpuscular HGB Conc 32.9 g/dl (31.0-35.0); Mean Corpuscular Volume 88.1 fL (80.0-98.0); Mean Platelet Volume 9.1 fL (9.4-12.3); Monocytes Absolute Auto 0.3 X10*3/uL (0.1-1.2); Monocytes Percent Auto 5.4 % (2-11); Neutrophils Absolute Auto 2.9 x10*3/uL (2.0-8.3); Neutrophils Percent Auto 61.7 % (45-73); Platelet Count 254 X10*3/uL (160-400); Red Blood Count 4.28 X10*6/uL (4.20-5.50); Red Cell Distribution Width 12.6 % (11.0-16.0); White Blood Count 4.7 X10*3/uL (4.8-10.8)
[2021-03-05 16:17] LABS: Appearance Urine CLEAR; Color Urine YELLOW; Glucose Urine UA NEG (NEG); Leukocyte Esterase Urine NEG (NEG); Nitrite Urine NEG (NEG); Specific Gravity - Urine 1.015 (1.005-1.025); Urine Blood NEG (NEG); Urine Ketones NEG (NEG); Urine Protein NEG (NEG-TRACE)
[2021-03-05 16:23] LABS: Alanine Aminotransferase 21 U/L (0-31); Albumin Level 4.3 g/dL (3.5-5.0); Alkaline Phosphatase 86 U/L (39-117); Anion Gap 11 (12-20); Aspartate Amino Transferase 17 U/L (5-31); Bilirubin Total 0.5 mg/dL (0.0-1.0); Blood Urea Nitrogen 16 mg/dL (9-16); Carbon Dioxide 29 mmol/L (22-29); Chloride 103 mmol/L (96-108); Creatinine Clr Calc Pharmacy 86.8; Estimated Glomerular Filt Rate > 60; Glucose Random 200 mg/dL (60-115); Potassium 4.3 mmol/L (3.3-5.1); Sodium 139 mmol/L (135-145); Total Protein 8.1 g/dL (6.5-8.0)
--- NOTE | 2021-03-05 19:46 | ED.ABDPAIN ---
HPI - Abdominal Pain General Chief Complaint: Abdominal Pain Stated Complaint: quest bowel obstruction abd pain Time Seen by Provider: 03/05/21 19:46 Source: patient Mode of arrival: ambulatory Limitations: no limitations History of Present Illness HPI narrative: Patient with history of chronic constipation diabetes chronic pain syndrome on multiple pain medication comes here for constipation for last 1 month unable to move her bowels for almost 1 month although passing some gas was seen by her PCP yesterday who could not hear her bowel sound, is asked to go to hospital for further workup patient feeling nauseated but no vomiting, feels bloated Related Data Home Medications Medication Instructions Recorded Confirmed albuterol sulfate 90 mcg/actuation INHALATION 03/31/20 03/04/21 aerosol inhaler bisacodyl 5 mg tablet,delayed 10 mg PO ONCE tab 02/05/21 03/04/21 release (Dulcolax (bisacodyl)) cyclobenzaprine 5 mg tablet 5 mg PO Q8H PRN tab 02/05/21 03/04/21 Previous Rx's Medication Instructions Recorded arm brace (Wrist Brace) #1 ea 01/18/20 cholecalciferol (vitamin D3) 1,250 1,250 mcg PO QWEEK 28 Days #4 cap 04/03/20 mcg (50,000 unit) capsule loratadine 10 mg capsule 10 mg PO DAILY 90 Days #90 cap 06/19/20 ondansetron HCl 8 mg tablet 8 mg PO DAILY 90 Days #90 tab 06/19/20 cholecalciferol (vitamin D3) 50 50 mcg PO DAILY 30 Days #30 cap 07/07/20 mcg (2,000 unit) capsule ezetimibe 10 mg tablet (Zetia) 10 mg PO DAILY 30 Days #30 tab 07/07/20 levothyroxine 175 mcg tablet 175 mcg PO DAILY 90 Days #90 tab 10/14/20 metformin 500 mg tablet 1,000 mg PO BID 30 Days #120 tab 10/14/20 pen needle, diabetic 32 gauge x #150 ea 10/14/20 (BD Alivia 2nd Gen Pen Needle) Accu-Chek Softclix Lancets #300 ea NS 10/16/20 (lancets) miscellaneous medical supply 1 ea MISCELLANEOUS DAILY #1 ea 11/20/20 folic acid 1 mg tablet 1 mg PO DAILY #30 tab 12/04/20 methotrexate sodium 2.5 mg tablet 10 mg PO QWEEK #16 tab 12/04/20 Accu-Chek Guide test strips (blood #300 ea NS 12/31/20 sugar diagnostic) lancets (Accu-Chek Fastclix Lancet #100 ea 12/31/20 Drum) Accu-Chek Nettie Plus Meter #1 ea NS 01/01/21 (blood-glucose meter) Accu-Chek Nettie Plus test strp #100 ea NS 01/01/21 (blood sugar diagnostic) insulin glargine 100 unit/mL (3 60 unit (0.6 mL) SUBCUT DAILY 30 01/15/21 mL) subcutaneous pen (Lantus Days #18 ml Solostar U-100 Insulin) insulin lispro 100 unit/mL 15 unit (0.15 mL) SUBCUT TID #15 ml 01/15/21 subcutaneous cartridge (Humalog U-100 Insulin) oxycodone 10 mg tablet 10 mg PO BID PRN 30 Days #60 tab 02/05/21 lactulose 10 gram/15 mL oral 10 g (15 mL) PO .every 2 hours 1 03/04/21 solution Days #237 ml zolpidem 10 mg tablet 10 mg PO BEDTIME 30 Days #30 tab 03/04/21 bisacodyl 5 mg tablet,delayed 10 mg PO BEDTIME 2 Days #30 tab 03/05/21 release (Alophen (bisacodyl)) magnesium hydroxide 400 mg/5 mL 30 ml PO BEDTIME PRN #355 ml 03/05/21 oral suspension (Meyers Milk of Magnesia) Allergies Allergy/AdvReac Type Severity Reaction Status Date / Time hydroxychloroquine Allergy Intermediate rash,facial Verified 03/04/21 17:00 [Plaquenil] swelling Iodinated Contrast Media Allergy Intermediate DIFF Verified 03/04/21 17:00 [CONTRAST, IV] BREATHING levofloxacin [From LEVAQUIN] Allergy Intermediate ITCHY RASH Verified 03/04/21 17:00 pregabalin [From LYRICA] Allergy Intermediate STOMACH Verified 03/04/21 17:00 UPSET tramadol Allergy Intermediate abdominal Verified 03/04/21 17:00 pain gadobutrol [From GADAVIST] Allergy Mild ANAPHYLAXIS Verified 03/04/21 17:00 Statins Support Allergy Intermediate transaminit Uncoded 03/04/21 17:00 is contrast dye Allergy Unknown unknown Uncoded 03/04/21 17:00 lyrica Allergy Unknown swelling Uncoded 03/04/21 17:00 MRI contrast (gadolinium) AdvReac Unknown anaphylaxis Uncoded 03/04/21 17:00 Review of Systems Review of Systems Yes all other systems are reviewed and are negative Physical Exam Vital Signs: Vital Signs: Last Vital Signs Temp 97.6 F 03/05/21 22:04 Pulse 57 03/05/21 22:04 Resp 16 03/05/21 22:04 BP 147/64 H 03/05/21 22:04 Pulse Ox 99 03/05/21 22:04 BMI result Body Mass Index 30.0 Appearance: Alert. Oriented X3. No acute distress. Anxious Eyes: PERRLA, No Nystagmus ENT: Pharynx normal. Oral Mucosa moist Neck: Normal inspection. Neck supple. CVS: Normal heart rate and rhythm. Pulses normal. Respiratory: No respiratory distress. Equal air entry bilateral, Abdomen: Soft and diffuse tenderness no rebound tenderness or guarding Bowel sounds are present, no mass palpable, Skin: Skin warm and dry. Normal skin color. Normal skin turgor. Extremities: No lower extremity edema. No calf tenderness Neuro: Oriented X 3. No motor deficit. MDM - Abdominal Pain MDM Narrative Medical decision making narrative: Patient CT scan abdomen scan with moderate amount of stool no fecal impaction no small bowel obstruction discharge patient home Lab Data Attestation: I reviewed the patient's lab results. Result diagrams: 03/05/21 16:03 03/05/21 16:03 Labs: Lab Results 03/05/21 03/05/21 03/05/21 Range/Units 16:03 16:03 16:09 WBC 4.7 L (4.8-10.8) X10*3/uL RBC 4.28 (4.20-5.50) X10*6/uL Hgb 12.4 (12.0-16.0) g/dl Hct 37.7 (37.0-47.0) % MCV 88.1 (80.0-98.0) fL MCH 29.0 (27.0-33.0) pg MCHC 32.9 (31.0-35.0) g/dl RDW 12.6 (11.0-16.0) % Plt Count 254 (160-400) X10*3/uL MPV 9.1 L (9.4-12.3) fL Immature Gran % (Auto) 0.2 (0.0-0.4) % Neut % (Auto) 61.7 (45-73) % Lymph % (Auto) 32.1 (20-40) % [place] % (Auto) 5.4 (2-11) % Eos % (Auto) 0.4 (0-4) % Baso % (Auto) 0.2 (0-2) % Lymph # (Auto) 1.5 (1.2-4.9) X10*3/uL [place] # (Auto) 0.3 (0.1-1.2) X10*3/uL Eos # (Auto) 0.0 (0.0-0.4) X10*3/uL Baso # (Auto) 0.0 (0.0-0.2) X10*3/uL Abs Immat Gran (auto) 0.01 (0.00-0.03) X10*3/uL Absolute Neuts (auto) 2.9 (2.0-8.3) x10*3/uL Absolute Nucleated RBC 0.000 (0.0-0.012) X10*3/uL Nucleated RBC % (auto) 0.0 (0.0-0.2) /100WBC Sodium 139 (135-145) mmol/L Potassium 4.3 (3.3-5.1) mmol/L Chloride 103 (96-108) mmol/L Carbon Dioxide 29 (22-29) mmol/L Anion Gap 11 L (12-20) BUN 16 (9-16) mg/dL Creatinine 0.83 (0.5-1.4) mg/dL Estim Creat Clear Calc 86.8 Estimated GFR > 60 Random Glucose 200 H (60-115) mg/dL Calcium 10.0 D (8.4-10.2) mg/dL Total Bilirubin 0.5 (0.0-1.0) mg/dL AST 17 (5-31) U/L ALT 21 (0-31) U/L Alkaline Phosphatase 86 (39-117) U/L Total Protein 8.1 H (6.5-8.0) g/dL Albumin 4.3 (3.5-5.0) g/dL Urine Color YELLOW Urine Appearance CLEAR Urine pH 6.0 (5.0-8.0) Ur Specific [place] 1.015 (1.005-1.025) Urine Protein NEG (NEG-TRACE) MG/DL Urine Glucose (UA) NEG (NEG) MG/DL Urine Ketones NEG (NEG) MG/DL Urine Blood NEG (NEG) Urine Nitrite NEG (NEG) Ur Leukocyte Esterase NEG (NEG) Discharge Plan Discharge Clinical Impression: Chronic idiopathic constipation Patient Disposition: Home, Self-Care Instructions: Constipation (ED) Additional Instructions: Take stool softener as prescribed and follow with your PCP Prescriptions: New bisacodyl [Alophen (bisacodyl)] 5 mg tablet,delayed release (DR/EC) 10 mg PO BEDTIME 2 Days Qty: 30 RF: 0 magnesium hydroxide [Meyers Milk of Magnesia] 400 mg/5 mL suspension 30 ml PO BEDTIME PRN (Reason: constipation) Qty: 355 RF: 0 No Action (DME) lancets [Accu-Chek Softclix Lancets] Misc See Rx Instructions .ROUTE .MEDSUPPLY Qty: 300 RF: 1 (DME) lancets [Accu-Chek Fastclix Lancet Drum] Misc See Rx Instructions .MEDSUPPLY Qty: 100 RF: 6 (DME) Accu-Chek Guide test strips Strip See Rx Instructions .ROUTE .MEDSUPPLY Qty: 300 RF: 1 (DME) blood-glucose meter [Accu-Chek Nettie Plus Meter] Misc See Rx Instructions .ROUTE .MEDSUPPLY Qty: 1 RF: 0 (DME) Accu-Chek Nettie Plus test strp Strip See Rx Instructions .ROUTE .MEDSUPPLY Qty: 100 RF: 11 oxycodone 10 mg tablet 10 mg PO BID PRN (Reason: pain) 30 Days Qty: 60 RF: 0 Hold Instructions: Doctor's Order cholecalciferol (vitamin D3) 1,250 mcg (50,000 unit) capsule 1,250 mcg PO QWEEK 28 Days Qty: 4 RF: 2 loratadine 10 mg capsule 10 mg PO DAILY 90 Days Qty: 90 RF: 3 ondansetron HCl 8 mg tablet 8 mg PO DAILY 90 Days Qty: 90 RF: 3 lactulose 10 gram/15 mL solution 10 g PO .every 2 hours 1 Days Qty: 237 RF: 0 zolpidem 10 mg tablet 10 mg PO BEDTIME 30 Days Qty: 30 RF: 0 Lantus Solostar U-100 Insulin 100 unit/mL (3 mL) insulin pen 60 unit subcut DAILY 30 Days Qty: 18 RF: 4 Humalog U-100 Insulin 100 unit/mL cartridge 15 unit subcut TID Qty: 15 RF: 0 albuterol sulfate 90 mcg/actuation HFA aerosol inhaler inhalation RF: 0 (DME) Wrist Brace Misc See Rx Instructions .MEDSUPPLY Qty: 1 RF: 0 (DME) pen needle, diabetic [BD Alivia 2nd Gen Pen Needle] 32 gauge x 5/32 needle See Rx Instructions .MEDSUPPLY Qty: 150 RF: 4 metformin 500 mg tablet 1,000 mg PO BID 30 Days Qty: 120 RF: 4 levothyroxine 175 mcg tablet 175 mcg PO DAILY 90 Days Qty: 90 RF: 3 methotrexate sodium 2.5 mg tablet 10 mg PO QWEEK Qty: 16 RF: 2 folic acid 1 mg tablet 1 mg PO DAILY Qty: 30 RF: 3 bisacodyl [Dulcolax (bisacodyl)] 5 mg tablet,delayed release (DR/EC) 10 mg PO ONCE RF: 0 cyclobenzaprine 5 mg tablet 5 mg PO Q8H PRN (Reason: pain (scale score 7-10)) RF: 0 cholecalciferol (vitamin D3) 50 mcg (2,000 unit) capsule 50 mcg PO DAILY 30 Days Qty: 30 RF: 3 ezetimibe [Zetia] 10 mg tablet 10 mg PO DAILY 30 Days Qty: 30 RF: 6 miscellaneous medical supply Misc 1 ea miscellaneous DAILY Qty: 1 RF: 0 Interventions: ED Discharge Assessment Last Done: 03/05/21 22:28 [facility] Past Medical History Medical History Abdominal pain Autoimmune thyroiditis Bilateral hand numbness Bipolar 1 disorder Breast mass, right Chronic constipation Chronic idiopathic constipation Diabetes type 2, uncontrolled Diabetic polyneuropathy associated with type 2 diabetes mellitus Dyslipidemia Fibromyalgia GERD (gastroesophageal reflux disease) Hand numbness Hypoactive bowel sounds Inflammatory arthritis Insomnia shelter (current) use of insulin Low vitamin D level Lung cyst Neck pain Post-surgical hypothyroidism Weight loss Surgical History History of esophagogastroduodenoscopy (EGD) History of hysterectomy History of thyroidectomy, total Hx of colonoscopy (1998) Family History Family History Father Status post liver transplant, biliary anastomotic size mismatch Brother No problems noted. Mother No problems noted. Maternal Aunt Breast cancer Other Mental health problem Substance abuse Social History Social History Household Members: None Housing: House Alcohol intake: never Patient Tobacco Use Status: Former Tobacco user Cigarettes Per Day: 7 Years Smoked: 6 e-Cigarette/Vaping Use: Never Used Second Hand Smoke Exposure: No Use of substances other than those prescribed or required for medical reasons: No Advance Directives: Yes Advance Directives Information Provided: Yes Advance Directives on File: No Patient : No service: No Current occupational status: disabled
[2021-03-05 20:00] VITALS: BP 156/67; PULSE 65; RESP 16; TEMP 36.3; O2SAT 98
[2021-03-05] MEDS: 0.9 % Sodium Chloride 1,000 ML 999 ML IVCONT (20:33)
[2021-03-05] MEDS: ondansetron HCL 4 MG/2 ML VIAL IVPUSH (20:33)
[2021-03-05] MEDS: Magnesium Citrate 300 ML SOLUTION PO (20:33)
[2021-03-05] MEDS: bisacodyL 5 MG TABLET.DR 10 MG PO (20:33)
[2021-03-05] MEDS: Acetaminophen 325 MG TABLET 650 MG PO (20:40)
[2021-03-05 22:04] VITALS: BP 147/64; PULSE 57; RESP 16; TEMP 36.4; O2SAT 99
== END 2021-03-05 23:00 | disposition home or self-care (01) ==
PROVIDERS: Emergency Medicine; Emergency Provider Internal Medicine; PCP Internal Medicine
DX: K59.04 Chronic idiopathic constipation (principal); E11.9 Type 2 diabetes mellitus without complications; G89.4 Chronic pain syndrome; Z79.891 Long term (current) use of opiate analgesic; Z79.4 Long term (current) use of insulin
CPT/HCPCS: 36415; 74176; 80053; 81003; 85025; 96361; 96374; 99284; 99285; 99291; J2405

== ENCOUNTER 2021-04-02 12:15 | Outpatient (REF) | payer MEDICARE, MEDICAID, SELFPAY ==
--- NOTE | ~2021-04-02 | CT_ITS ---
EXAMINATION: CT ABDOMEN AND PELVIS WITHOUT CONTRAST CLINICAL INFORMATION: Abnormal bowel sounds. COMPARISON: CT abdomen/pelvis dated from 03/05/2021. TECHNIQUE: Multidetector volumetric imaging was performed from the superior aspect of the liver through the pubic symphysis. Sagittal and coronal reformatted images were obtained on the technologist's workstation. This CT examination was performed using dose optimization techniques as appropriate, variously including the following: *Automated exposure control *Adjustment of mA and/or kV according to patient size (this includes techniques or standardized protocols for targeted exams where dose is matched to indication/reason for exam; i.e. extremities or head) *Use of iterative reconstruction technique DLP: 482 mGy-cm FINDINGS: LUNG BASES: No focal consolidation or pleural effusion. A 1.3 cm water density nodule inseparable from the skin surface of the posterior right lower chest (3:3) is unchanged. LIVER, GALLBLADDER, AND BILIARY TREE: The liver measures up to 22 cm in maximum craniocaudal dimensions, similar to prior. A few too small to characterize hypodensities (images 14, 16 and 35, series 3) are stable. Cholecystectomy. Unchanged expected dilatation of the common bile duct. There is no significant intrahepatic biliary ductal dilatation. PANCREAS: No focal abnormalities. The main pancreatic duct is nondilated. No peripancreatic free fluid or fat stranding. SPLEEN: Unremarkable. ADRENAL GLANDS: Unremarkable. KIDNEYS AND URETERS: The kidneys are normal in size, shape, and attenuation. No hydronephrosis, hydroureter, or calculi seen. No perinephric stranding. BLADDER: Unremarkable. GASTROINTESTINAL TRACT: The stomach and the small bowel are nondilated. Oral contrast opacifies the entirety of the small bowel up to the level of the terminal ileum with a minimal amount of contrast in the cecum. Normal appendix. There is moderate volume of stool throughout the colon with a somewhat ahaustral appearance of the transverse and, to a lesser extent, descending colon. There is however, no significant associated wall thickening or pericolic inflammatory changes to suspect active colitis or active diverticulitis. Scattered diverticula are identified in the sigmoid colon. No bowel obstruction. ABDOMINAL WALL: No significant hernia is appreciated. LYMPH NODES: A few prominent retroperitoneal and mesenteric lymph nodes are stable. Minimal haziness of the upper mesentery (3:34) is unchanged and of uncertain significance. VASCULAR: Unremarkable. PELVIC VISCERA: Hysterectomy. No adnexal lesions. OSSEOUS STRUCTURES: No acute or aggressive osseous abnormalities. CT/CT abdomen pelvis wo con IMPRESSION: Moderate amount of stool burden in the transverse and descending colon which demonstrates a somewhat ahaustral appearance. These findings are indeterminate and could be associated with constipation and/or a chronic underlying inflammatory process such as Crohn's for which correlation with a colonoscopy could be obtained if indicated. There is no associated wall thickening or fat stranding to suspect active colitis. Sigmoid diverticulosis without acute diverticulitis. Hepatomegaly, unchanged.
[2021-04-02] MEDS: Barium Sulfate Oral (Berry) 450 ML ORAL.SUSP 900 ML PO (14:45)
== END 2021-04-02 12:16 | disposition home or self-care (01) ==
LOC: HO.CT 12:15
PROVIDERS: PCP Internal Medicine; Visit Provider Internal Medicine
DX: R19.15 Other abnormal bowel sounds (principal); K59.09 Other constipation
CPT/HCPCS: 74176

== ENCOUNTER 2021-05-06 09:16 | Outpatient (REF) | payer MEDICARE, MEDICAID, SELFPAY ==
[2021-05-07 09:19] LABS: BV Int Neg Control Negative (Negative); BV Int Pos Control Positive (Positive)
== END 2021-05-06 09:17 | disposition home or self-care (01) ==
LOC: HO.LAB 09:16
PROVIDERS: PCP Internal Medicine; Visit Provider Advanced Practice Midwife
DX: N89.8 Other specified noninflammatory disorders of vagina (principal); B37.3 Candidiasis of vulva and vagina; Z79.899 Other long term (current) drug therapy; Z79.84 Long term (current) use of oral hypoglycemic drugs; Z79.4 Long term (current) use of insulin; Z87.891 Personal history of nicotine dependence; Z20.2 Contact with and (suspected) exposure to infections with a predominantly sexual mode of transmission
CPT/HCPCS: 87480; 87510; 87660; 99212

== ENCOUNTER 2021-05-08 13:06 | Outpatient (REF) | payer MEDICARE, MEDICAID, SELFPAY ==
--- NOTE | ~2021-05-08 | MM_ITS ---
EXAMINATION: MM DIAGNOSTIC DIGITAL BREAST TOMOSYNTHESIS, BILATERAL US BREAST LIMITED, RIGHT CLINICAL INFORMATION: Six-month follow up right breast density. Yearly left breast study. The lifetime risk of breast cancer based on the Tyrer-Cuzick Model is 6.7%. COMPARISON: Mammography: 10/08/2020 and studies dating back to 07/25/2015. TECHNIQUE: Digital breast tomosynthesis was performed in both the craniocaudal and mediolateral oblique views along with computer-aided detection (CAD). Synthesized 2D images were generated from the tomosynthesis. Targeted right breast ultrasound. FINDINGS: There are scattered areas of fibroglandular density (ACR BI-RADS breast composition Category b). MAMMOGRAPHY: There is stability of the small, partially circumscribed density about the mid inferior medial aspect of the right breast. There is development of a new 6 x 5 mm circumscribed density about the medial aspect of the right breast, approximately 3.5 cm from the nipple. There is a stable appearance of the left breast. ULTRASOUND: Targeted right breast ultrasound demonstrated a 6 x 4 x 4 mm anechoic structure which is wider than it is tall without internal vascularity and with a smooth back wall and increased through sound transmission consistent with a simple cyst. This is at the 1-o'clock position. Results were discussed with the patient at time of visit. MM/MM tomosynthesis diagnostic BI IMPRESSION: No significant change in the small right breast density inferior medial aspect. New simple cyst about the 1-o'clock position. ASSESSMENT: BI-RADS 2: Benign RECOMMENDATION: Routine annual mammography screening due in 12 months. This patient's information was entered into a reminder system with a target due date for their next mammogram.
--- NOTE | ~2021-05-08 | US_ITS ---
EXAMINATION: US DIAGNOSTIC BREAST, RIGHT CLINICAL INFORMATION: Nodular density medial right breast. COMPARISON: 10/08/2020 and studies dating back to 07/25/2015. TECHNIQUE: Ultrasound of the breast is performed with real-time erickson scale imaging and color Doppler. FINDINGS: Targeted right breast ultrasound demonstrated a 6 x 4 x 4 mm anechoic structure which is wider than it is tall without internal vascularity and with smooth back wall and increased through sound transmission consistent with a simple cyst. This is at the 1:00 position. Results are discussed with the patient at time of visit. US/US breast RT limited IMPRESSION: No significant change in small right breast density inferior medial aspect. Simple cyst about the 1 o'clock position. ASSESSMENT: BI-RADS 2: Benign RECOMMENDATION: Routine annual mammography screening due in 12 months.
== END 2021-05-08 13:07 | disposition home or self-care (01) ==
LOC: HO.MAMMO 13:06
PROVIDERS: Visit Provider Internal Medicine
DX: R92.2 Inconclusive mammogram (principal); M06.00 Rheumatoid arthritis without rheumatoid factor, unspecified site; M54.50 Low back pain, unspecified; Z79.899 Other long term (current) drug therapy
CPT/HCPCS: 76642; 77062; 77066; 99212

== ENCOUNTER 2021-05-09 10:28 | Outpatient (REF) | payer MEDICARE, MEDICAID, SELFPAY ==
--- NOTE | ~2021-05-09 | XR_ITS ---
EXAMINATION: XR ABDOMEN KUB CLINICAL INDICATION: Constipation. Low back and abdominal pain. COMPARISON: Previous CT of the abdomen and pelvis March 2021 TECHNIQUE: AP view of the abdomen. FINDINGS: There is stool throughout the colon. There are no dilated loops of bowel to suggest obstruction. There are surgical clips in the right upper quadrant suggestive of previous cholecystectomy. There are small bilateral pelvic calcifications probably representing calcified phleboliths. There are mild degenerative changes of the lower lumbar spine. XR/XR abdomen 1V IMPRESSION: Stool throughout the colon questionable for mild constipation. Otherwise unremarkable exam.
--- NOTE | ~2021-05-09 | XR_ITS ---
EXAMINATION: XR LUMBOSACRAL SPINE CLINICAL INFORMATION: Low back pain COMPARISON: Previous x-ray June 2016 TECHNIQUE: Three views of the lumbosacral spine. FINDINGS: Bone alignment is normal. No fracture or dislocation is seen. Disc spaces are normal. There is lower lumbar spine facet arthritis. XR/XR lumbar spine 2-3V IMPRESSION: Lower lumbar spine facet arthritis.
[2021-05-09 10:51] LABS: MANUAL DIFF FLAG NO
[2021-05-09 11:00] LABS: Basophils Percent Auto 0.7 % (0-2); Eosinophils Percent Auto 0.7 % (0-4); Hematocrit 39.5 % (37.0-47.0); Hemoglobin 13.1 g/dl (12.0-16.0); Imm Gran Abs Auto 0.02 X10*3/uL (0.00-0.03); Imm Gran Pct Auto 0.4 % (0.0-0.4); Lymphocytes Absolute Auto 1.7 X10*3/uL (1.2-4.9); Lymphocytes Percent Auto 38.1 % (20-40); Mean Corpuscular HGB Conc 33.2 g/dl (31.0-35.0); Mean Corpuscular Hemoglobin 28.4 pg (27.0-33.0); Mean Corpuscular Volume 85.7 fL (80.0-98.0); Mean Platelet Volume 9.2 fL (9.4-12.3); Monocytes Absolute Auto 0.3 X10*3/uL (0.1-1.2); Monocytes Percent Auto 6.1 % (2-11); Neutrophils Absolute Auto 2.5 x10*3/uL (2.0-8.3); Platelet Count 263 X10*3/uL (160-400); Red Blood Count 4.61 X10*6/uL (4.20-5.50); Red Cell Distribution Width 12.4 % (11.0-16.0); White Blood Count 4.6 X10*3/uL (4.8-10.8)
[2021-05-09 11:37] LABS: Alanine Aminotransferase 21 U/L (0-31); Albumin Level 4.4 g/dL (3.5-5.0); Alkaline Phosphatase 110 U/L (39-117); Anion Gap 12 (12-20); Aspartate Amino Transferase 18 U/L (5-31); Bilirubin Total 0.7 mg/dL (0.0-1.0); Blood Urea Nitrogen 14 mg/dL (9-16); C Reactive Protein 1.17 mg/dL (< or = 0.50); Carbon Dioxide 27 mmol/L (22-29); Chloride 98 mmol/L (96-108); Cholesterol 226 mg/dL; Erythrocyte Sedimentation Rate 32 MM/HR (0-20); Estimated Glomerular Filt Rate > 60; HDL Cholesterol 49 mg/dL; LDL Cholesterol Calculated 150 mg/dl; Potassium 4.7 mmol/L (3.3-5.1); Sodium 132 mmol/L (135-145); Total Protein 8.6 g/dL (6.5-8.0); Triglycerides 139 mg/dL
[2021-05-09 11:39] LABS: Thyroid Stimulating Hormone 6.79 uIU/mL (0.32-4.0)
[2021-05-09 12:09] LABS: Glucose Random 352 mg/dL (60-115)
== END 2021-05-09 10:29 | disposition home or self-care (01) ==
LOC: HO.LAB 10:28
PROVIDERS: PCP Internal Medicine; Visit Provider Nurse Practitioner Family
DX: M54.50 Low back pain, unspecified (principal); M06.00 Rheumatoid arthritis without rheumatoid factor, unspecified site; E06.3 Autoimmune thyroiditis; E78.5 Hyperlipidemia, unspecified
CPT/HCPCS: 36415; 72100; 74018; 80053; 80061; 84443; 85025; 85652; 86140

== ENCOUNTER → 2021-05-13 08:44 | Outpatient (BNVA) | payer MEDICARE, MEDICAID, SELFPAY | PROVIDERS: PCP Internal Medicine; Visit Provider Nurse Practitioner Gerontology | DX: E11.65 Type 2 diabetes mellitus with hyperglycemia (principal); E11.42 Type 2 diabetes mellitus with diabetic polyneuropathy; E78.5 Hyperlipidemia, unspecified; E89.0 Postprocedural hypothyroidism; R79.89 Other specified abnormal findings of blood chemistry; Z79.4 Long term (current) use of insulin | CPT/HCPCS: 82947; 99212 ==

== ENCOUNTER 2021-07-11 03:28 | Emergency (ER) | payer MEDICARE, MEDICAID, SELFPAY ==
[2021-07-11 03:54] VITALS: BP 115/50; PULSE 61; RESP 20; TEMP 36.8; O2SAT 98; BMI 28.1
[2021-07-11 06:26] VITALS: BP 119/58; PULSE 66; RESP 20; O2SAT 98
[2021-07-11 07:00] VITALS: BP 90/45; PULSE 48; RESP 16; TEMP 36.3; O2SAT 98
--- NOTE | 2021-07-11 07:47 | ED.SKABFB ---
HPI - Skin/Abscess/Foreign Bdy General Chief complaint: Skin/Abscess/Foreign Body Stated complaint: Abscess Time Seen by Provider: 07/11/21 06:53 Source: patient Mode of arrival: ambulatory History of Present Illness HPI narrative: 56-year-old female with history of diabetes who states that approximately 2 weeks ago an ant climbed up over her arm and she states that it then bit her on the back and there after she began developing increasing redness and swelling and a has developed fever and chills and is unable to express any purulence drainage. Related Data Home Medications Medication Instructions Recorded Confirmed albuterol sulfate 90 mcg/actuation INHALATION 03/31/20 05/08/21 aerosol inhaler ondansetron HCl 8 mg tablet 8 mg PO DAILY PRN tab 05/08/21 05/08/21 Previous Rx's Medication Instructions Recorded arm brace (Wrist Brace) #1 ea 01/18/20 cholecalciferol (vitamin D3) 1,250 1,250 mcg PO QWEEK 28 Days #4 cap 04/03/20 mcg (50,000 unit) capsule cholecalciferol (vitamin D3) 50 50 mcg PO DAILY 30 Days #30 cap 07/07/20 mcg (2,000 unit) capsule pen needle, diabetic 32 gauge x #150 ea 10/14/20/32 (BD Alivia 2nd Gen Pen Needle) miscellaneous medical supply 1 ea MISCELLANEOUS DAILY #1 ea 11/20/20 fluconazole 150 mg tablet 150 mg PO Q3D 0 Days #2 tab 05/06/21 miconazole nitrate 2 % vaginal 1 appful VAGINAL BEDTIME 7 Days 05/06/21 cream (Miconazole-7) #45 g folic acid 1 mg tablet 1 mg PO DAILY #30 tab 05/08/21 methotrexate sodium 2.5 mg tablet 10 mg PO QWEEK #16 tab 05/08/21 atorvastatin 20 mg tablet 20 mg PO BEDTIME #30 tab 05/13/21 blood sugar diagnostic (FreeStyle #100 ea 05/13/21 Lite Strips) blood-glucose meter (FreeStyle #1 ea 05/13/21 Lite Meter) lancets 33 gauge (TRUEplus Lancets) #100 ea 05/13/21 pen needle, diabetic 32 gauge x #100 ea 05/13/21 5/32 (BD Ultra-Fine Alivia Pen Needle) insulin degludec 200 unit/mL (3 40 unit (0.2 mL) SUBCUT BEDTIME 30 06/16/21 mL) subcutaneous pen (Tresiba Days #6 ml FlexTouch U-200 insulin) loratadine 10 mg capsule 10 mg PO DAILY 90 Days #90 cap 06/22/21 levothyroxine 175 mcg tablet 175 mcg PO DAILY 90 Days #90 tab 07/07/21 oxycodone 10 mg tablet 10 mg PO BID PRN 30 Days #60 tab 07/07/21 zolpidem 10 mg tablet 10 mg PO BEDTIME 30 Days #30 tab 07/07/21 cephalexin 500 mg capsule 500 mg PO BID 5 Days #10 cap 07/11/21 doxycycline hyclate 100 mg capsule 100 mg PO BID 5 Days #10 cap 07/11/21 Allergies Allergy/AdvReac Type Severity Reaction Status Date / Time hydroxychloroquine Allergy Intermediate rash,facial Verified 05/13/21 08:59 [Plaquenil] swelling Iodinated Contrast Media Allergy Intermediate DIFF Verified 05/13/21 08:59 [CONTRAST, IV] BREATHING levofloxacin [From LEVAQUIN] Allergy Intermediate ITCHY RASH Verified 05/13/21 08:59 pregabalin [From LYRICA] Allergy Intermediate STOMACH Verified 05/13/21 08:59 UPSET tramadol Allergy Intermediate abdominal Verified 05/13/21 08:59 pain gadobutrol [From GADAVIST] Allergy Mild ANAPHYLAXIS Verified 05/13/21 08:59 Statins Support Allergy Intermediate transaminit Uncoded 05/13/21 08:59 is contrast dye Allergy Unknown unknown Uncoded 05/13/21 08:59 lyrica Allergy Unknown swelling Uncoded 05/13/21 08:59 MRI contrast (gadolinium) AdvReac Unknown anaphylaxis Uncoded 05/13/21 08:59 Review of Systems Review of Systems: Pertinent positives and negatives as stated in HPI 10 point review of systems is otherwise negative. 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 Mother No problems noted. Maternal Aunt Breast cancer Other Mental health problem Substance abuse Social History Social History Household Members: None Housing: House Alcohol intake: unknown Patient Tobacco Use Status: Former Tobacco user Cigarettes Per Day: 7 Years Smoked: 6 e-Cigarette/Vaping Use: Never Used Second Hand Smoke Exposure: No Use of substances other than those prescribed or required for medical reasons: Unknown Advance Directives: No Patient : No service: No Current occupational status: disabled Physical Exam Vital Signs: Vital Signs: Last Vital Signs Temp 97.4 F 07/11/21 07:00 Pulse 48 L 07/11/21 07:00 Resp 16 07/11/21 07:00 BP 90/45 L 07/11/21 07:00 Pulse Ox 98 07/11/21 07:00 BMI result Body Mass Index 28.1 VITAL SIGNS: Reviewed. GENERAL: Well developed, well nourished, in no acute distress. HEAD: Normocephalic/atraumatic EYES: PERRLA, EOMI EARS: Ext canals without abnormality OROPHARYNX: no oral lesions noted, posterior pharynx clear LUNGS: Normal breath sounds. No adventitious sounds or accessory muscle use. SpO2<98>;CHEST WALL: 4 CM ABSCESS AT THE RIGHT POSTERIOR CHEST WALL WITH NOTED ERYTHEMA, FLUCTUANCE CARDIOVASCULAR: Regular rate and rhythm without noted murmurs ABDOMEN: Soft, non-tender, non-distended with bowel sounds. NEUROLOGIC: Alert and oriented x 4. Strength and sensation to light touch were grossly intact x 4. Course Course Course Narrative: 56-YEAR-OLD FEMALE WITH HISTORY AND CLINICAL PRESENTATION CONSISTENT WITH ABSCESS, THIS WAS DRAINED SUCCESSFULLY, A SMALL WICK WAS PUT IN PLACE, PATIENT WAS GIVEN ANALGESICS WELL INITIAL ANTIBIOTICS. SHE WAS THEN DISCHARGED HOME WITH INSTRUCTIONS TO COMPLETE THE ENTIRE COURSE OF ANTIBIOTICS AND FOLLOW-UP WITH A PRIMARY CARE PROVIDER. Procedures Abscess I/D Site: chest Side (if applicable): right Local Anesthetic: lidocaine 2% Amount of anesthesia used (mL): 4 Technique: incised with blade and ultrasound guided Amount of fluid expressed (mL): 50 Sent for culture/gram staining?: No Irrigation: Yes Packing used?: plain Complications: pain Discharge Plan Discharge Clinical Impression: Abscess Patient Disposition: Home, Self-Care Instructions: Abscess (ED), Incision and Drainage (ED) Additional Instructions: 1. Resume all home medications as prescribed. 2. Remove the gauze from your wound tomorrow at 09:00. 3. Complete the entire course of antibiotics. 4. Follow-up with your primary care provider on Tuesday morning. Return to the ER for worsening symptoms. Prescriptions: New doxycycline hyclate 100 mg capsule 100 mg PO BID 5 Days Qty: 10 0RF cephalexin 500 mg capsule 500 mg PO BID 5 Days Qty: 10 0RF No Action Tresiba FlexTouch U-200 200 unit/mL (3 mL) insulin pen 40 unit subcut BEDTIME 30 Days Qty: 6 6RF loratadine 10 mg capsule 10 mg PO DAILY 90 Days Qty: 90 3RF zolpidem 10 mg tablet 10 mg PO BEDTIME 30 Days Qty: 30 0RF oxycodone 10 mg tablet 10 mg PO BID PRN (Reason: pain) 30 Days Qty: 60 0RF Hold Instructions: Doctor's Order levothyroxine 175 mcg tablet 175 mcg PO DAILY 90 Days Qty: 90 3RF cholecalciferol (vitamin D3) 1,250 mcg (50,000 unit) capsule 1,250 mcg PO QWEEK 28 Days Qty: 4 2RF albuterol sulfate 90 mcg/actuation HFA aerosol inhaler inhalation 0RF (DME) Wrist Brace Misc See Rx Instructions .MEDSUPPLY Qty: 1 0RF Rx Instructions: Comfort form wrist splint with thumb-LT-M (DME) pen needle, diabetic [BD Alivia 2nd Gen Pen Needle] 32 gauge x 5/32 needle See Rx Instructions .MEDSUPPLY Qty: 150 4RF Rx Instructions: 4 times a day atorvastatin 20 mg tablet 20 mg PO BEDTIME Qty: 30 11RF (DME) blood-glucose meter [FreeStyle Lite Meter] Kit See Rx Instructions .Route Qty: 1 0RF Rx Instructions: As directed (DME) lancets [TRUEplus Lancets] 33 gauge misc See Rx Instructions .ROUTE .MEDSUPPLY Qty: 100 0RF Rx Instructions: As directed 3x/day (DME) pen needle, diabetic [BD Ultra-Fine Alivia Pen Needle] 32 gauge x 5/32 needle See Rx Instructions .ROUTE .MEDSUPPLY Qty: 100 3RF Rx Instructions: As directed once daily (DME) FreeStyle Lite Strips Strip See Rx Instructions .Route Qty: 100 11RF Rx Instructions: As directed 3 times a day cholecalciferol (vitamin D3) 50 mcg (2,000 unit) capsule 50 mcg PO DAILY 30 Days Qty: 30 3RF miscellaneous medical supply Misc 1 ea miscellaneous DAILY Qty: 1 0RF Rx Instructions: Cane ondansetron HCl 8 mg tablet 8 mg PO DAILY PRN0RF methotrexate sodium 2.5 mg tablet 10 mg PO QWEEK Qty: 16 2RF folic acid 1 mg tablet 1 mg PO DAILY Qty: 30 3RF miconazole nitrate [Miconazole-7] 2 % cream 1 appful vaginal BEDTIME 7 Days Qty: 45 3RF fluconazole 150 mg tablet 150 mg PO Q3D 0 Days Qty: 2 1RF Rx Instructions: may repeat second dose 72 hrs after first dose if symptoms persist Referrals: Becca Sprague MD [Primary Care Provider] -
[2021-07-11] MEDS: Acetaminophen 325 MG TABLET 975 MG PO (08:06)
[2021-07-11] MEDS: cephALEXin 500 MG CAPSULE PO (08:07)
[2021-07-11] MEDS: Lidocaine HCl 2 % 20 ML VIAL 5 ML INFILTRATI (08:12)
== END 2021-07-11 08:13 | disposition home or self-care (01) ==
PROVIDERS: Emergency Provider Student in an Organized Health Care Education/Training Program; PCP Internal Medicine
DX: L02.213 Cutaneous abscess of chest wall (principal); E11.9 Type 2 diabetes mellitus without complications; Z79.4 Long term (current) use of insulin
CPT/HCPCS: 10060; 99284

== ENCOUNTER 2021-08-07 12:12 | Outpatient (REF) | payer MEDICARE, MEDICAID, SELFPAY ==
[2021-08-07 13:42] LABS: MANUAL DIFF FLAG NO
[2021-08-07 14:22] LABS: Basophils Percent Auto 0.4 % (0-2); Eosinophils Percent Auto 0.8 % (0-4); Hematocrit 36.2 % (37.0-47.0); Hemoglobin 11.8 g/dl (12.0-16.0); Imm Gran Abs Auto 0.02 X10*3/uL (0.00-0.03); Imm Gran Pct Auto 0.4 % (0.0-0.4); Lymphocytes Absolute Auto 1.8 X10*3/uL (1.2-4.9); Lymphocytes Percent Auto 35.8 % (20-40); Mean Corpuscular HGB Conc 32.6 g/dl (31.0-35.0); Mean Corpuscular Hemoglobin 28.3 pg (27.0-33.0); Mean Corpuscular Volume 86.8 fL (80.0-98.0); Mean Platelet Volume 9.2 fL (9.4-12.3); Monocytes Absolute Auto 0.3 X10*3/uL (0.1-1.2); Monocytes Percent Auto 6.7 % (2-11); Neutrophils Absolute Auto 2.8 x10*3/uL (2.0-8.3); Neutrophils Percent Auto 55.9 % (45-73); Platelet Count 210 X10*3/uL (160-400); Red Blood Count 4.17 X10*6/uL (4.20-5.50); Red Cell Distribution Width 12.9 % (11.0-16.0); White Blood Count 5.1 X10*3/uL (4.8-10.8)
[2021-08-07 14:40] LABS: Alanine Aminotransferase 39 U/L (0-31); Albumin Level 4.1 g/dL (3.5-5.0); Alkaline Phosphatase 95 U/L (39-117); Anion Gap 8 (12-20); Aspartate Amino Transferase 28 U/L (5-31); Bilirubin Total 0.4 mg/dL (0.0-1.0); Blood Urea Nitrogen 18 mg/dL (9-16); C Reactive Protein 0.49 mg/dL (< or = 0.50); Calcium 9.7 mg/dL (8.4-10.2); Carbon Dioxide 26 mmol/L (22-29); Chloride 105 mmol/L (96-108); Cholesterol 183 mg/dL; Estimated Glomerular Filt Rate > 60; Glucose Fasting 240 mg/dL (60-99); HDL Cholesterol 50 mg/dL; LDL Cholesterol Calculated 116 mg/dl; Potassium 4.7 mmol/L (3.3-5.1); Sodium 134 mmol/L (135-145); Total Protein 8.9 g/dL (6.5-8.0); Triglycerides 86 mg/dL
[2021-08-07 15:00] LABS: Thyroid Stimulating Hormone 8.96 uIU/mL (0.32-4.0); Vitamin D 25-OH Total 15.3 ng/mL (>30)
[2021-08-07 15:06] LABS: Erythrocyte Sedimentation Rate 31 MM/HR (0-20)
[2021-08-07 15:09] LABS: Appearance Urine CLEAR; Color Urine YELLOW; Glucose Urine UA >=1000 MG/DL (NEG); Leukocyte Esterase Urine NEG (NEG); Nitrite Urine NEG (NEG); PH 5.5 (5.0-8.0); Specific Gravity - Urine >= 1.030 (1.005-1.025); Urine Blood NEG (NEG); Urine Ketones NEG (NEG); Urine Protein NEG (NEG-TRACE)
[2021-08-07 15:37] LABS: Mucus Urine TRACE /LPF; Squamous Epithelial Cell Urine TRACE /LPF; WBC Urine 0 /HPF (0-4)
== END 2021-08-07 12:13 | disposition home or self-care (01) ==
LOC: HO.LAB 12:12
PROVIDERS: Nurse Practitioner Gerontology; PCP Internal Medicine; Visit Provider Nurse Practitioner Family
DX: E11.65 Type 2 diabetes mellitus with hyperglycemia (principal); E11.42 Type 2 diabetes mellitus with diabetic polyneuropathy; E89.0 Postprocedural hypothyroidism; E87.1 Hypo-osmolality and hyponatremia; E55.9 Vitamin D deficiency, unspecified; R30.0 Dysuria; M06.00 Rheumatoid arthritis without rheumatoid factor, unspecified site; M54.50 Low back pain, unspecified; M79.641 Pain in right hand; M79.642 Pain in left hand; M19.042 Primary osteoarthritis, left hand; Z87.891 Personal history of nicotine dependence; Z94.4 Liver transplant status; Z98.0 Intestinal bypass and anastomosis status; Z88.8 Allergy status to other drugs, medicaments and biological substances; Z91.041 Radiographic dye allergy status; Z79.4 Long term (current) use of insulin; Z79.891 Long term (current) use of opiate analgesic; Z79.899 Other long term (current) drug therapy
CPT/HCPCS: 36415; 80053; 80061; 81001; 81003; 82306; 84439; 84443; 85025; 85652; 86140; 99212

== ENCOUNTER → 2021-08-12 12:29 | Outpatient (BNVA) | payer MEDICARE, MEDICAID, SELFPAY | PROVIDERS: PCP Internal Medicine; Visit Provider Nurse Practitioner Gerontology | DX: E11.65 Type 2 diabetes mellitus with hyperglycemia (principal); E11.42 Type 2 diabetes mellitus with diabetic polyneuropathy; E78.5 Hyperlipidemia, unspecified; E89.0 Postprocedural hypothyroidism; R79.89 Other specified abnormal findings of blood chemistry; Z79.4 Long term (current) use of insulin | CPT/HCPCS: 82947; 83036; 99212 ==

== ENCOUNTER 2021-08-13 14:56 | Emergency (ER) | payer MEDICARE, MEDICAID, SELFPAY ==
--- NOTE | ~2021-08-13 | XR_ITS ---
EXAMINATION: XR CHEST CLINICAL INFORMATION: Weakness. COMPARISON: 06/02/2018 chest and rib radiographs. TECHNIQUE: 2 views of the chest were obtained. FINDINGS: No significant abnormality is noted involving the heart, lungs, mediastinum, bony thorax or soft tissues. XR/XR chest 2V IMPRESSION: No acute cardiopulmonary process.
--- NOTE | ~2021-08-13 | US_ITS ---
EXAMINATION: US ABDOMEN LIMITED CLINICAL INFORMATION: Right upper quadrant pain. COMPARISON: CT abdomen 04/02/2021 TECHNIQUE: Real-time imaging of the liver. Single organ ultrasound only per ordering request. FINDINGS: PANCREAS: Normal. LIVER: Normal. The liver is normal in size. The liver contour is normal. Parenchymal echogenicity is normal. No focal hepatic lesion. There is no intrahepatic biliary duct dilatation seen. RIGHT KIDNEY: Limited nondedicated views of the right kidney demonstrate no hydronephrosis. US/US abdomen limited IMPRESSION: Unremarkable sonographic appearance of the liver.
[2021-08-13 15:05] VITALS: BP 111/62; PULSE 88; O2SAT 100
[2021-08-13 15:09] VITALS: BP 135/77; PULSE 83; RESP 18; TEMP 37.6; O2SAT 98; BMI 28.8
--- NOTE | 2021-08-13 15:34 | ED_ITS ---
HPI - General Adult General Chief complaint: General Medical Stated complaint: UTI W/FEVER Time Seen by Provider: 08/13/21 15:12 Source: patient and EMS Mode of arrival: EMS Limitations: no limitations History of Present Illness HPI narrative: 56-year-old female with a history of diabetes, fibromyalgia, GERD, rheumatoid arthritis (on weekly MTX) here with reports of neck pain, back pain, body aches, chills since late last evening. Patient tells me she saw her roll finisher yesterday and was started on a new insulin (novolog) and she took her first dose at 530pm last evening. She denies any cough, upper respiratory symptoms, shortness of breath, chest pain, abdominal pain, vomiting, diarrhea, urinary sym ptoms. She tells me she has pain that radiates from the back of her neck all the way down to her back into the back of her legs. She describes the pain as a burning sensation. Unrelieved with home oxycodone, motrin. Related Data Home Medications Medication Instructions Recorded Confirmed albuterol sulfate 90 mcg/actuation INHALATION 03/31/20 08/07/21 aerosol inhaler ondansetron HCl 8 mg tablet 8 mg PO DAILY PRN tab 05/08/21 08/07/21 Previous Rx's Medication Instructions Recorded arm brace (Wrist Brace) #1 ea 01/18/20 miscellaneous medical supply 1 ea MISCELLANEOUS DAILY #1 ea 11/20/20 fluconazole 150 mg tablet 150 mg PO Q3D 0 Days #2 tab 05/06/21 miconazole nitrate 2 % vaginal 1 appful VAGINAL BEDTIME 7 Days 05/06/21 cream (Miconazole-7) #45 g folic acid 1 mg tablet 1 mg PO DAILY #30 tab 05/08/21 blood sugar diagnostic (FreeStyle #100 ea 05/13/21 Lite Strips) blood-glucose meter (FreeStyle #1 ea 05/13/21 Lite Meter) loratadine 10 mg capsule 10 mg PO DAILY 90 Days #90 cap 06/22/21 levothyroxine 175 mcg tablet 175 mcg PO DAILY 90 Days #90 tab 07/07/21 ibuprofen 800 mg tablet 800 mg PO Q8H PRN 30 Days #90 tab 08/06/21 oxycodone 10 mg tablet 10 mg PO BID PRN 30 Days #60 tab 05/12/22 zolpidem 10 mg tablet 10 mg PO BEDTIME 30 Days #30 tab 08/06/21 methotrexate sodium 2.5 mg tablet 15 mg PO QWEEK #24 tab 08/10/21 atorvastatin 20 mg tablet 20 mg PO BEDTIME #30 tab 08/12/21 cholecalciferol (vitamin D3) 50 50 mcg PO DAILY 30 Days #30 cap 08/12/21 mcg (2,000 unit) capsule insulin aspart U-100 100 unit/mL 6 - 10 unit (0.06 - 0.1 mL) SUBCUT 08/12/21 (3 mL) subcutaneous pen (Novolog TID #15 ml Flexpen U-100 Insulin aspart) insulin degludec 200 unit/mL (3 36 unit (0.18 mL) SUBCUT BEDTIME 08/12/21 mL) subcutaneous pen (Tresiba 30 Days #5.4 ml FlexTouch U-200 insulin) lancets 33 gauge (TRUEplus Lancets) #200 ea 08/12/21 pen needle, diabetic 32 gauge x #150 ea 08/12/21/32 (BD Ultra-Fine Alivia Pen Needle) Allergies Allergy/AdvReac Type Severity Reaction Status Date / Time hydroxychloroquine Allergy Intermediate rash,facial Verified 08/12/21 13:14 [Plaquenil] swelling Iodinated Contrast Media Allergy Intermediate DIFF Verified 08/12/21 13:14 [CONTRAST, IV] BREATHING levofloxacin [From LEVAQUIN] Allergy Intermediate ITCHY RASH Verified 08/12/21 13:14 pregabalin [From LYRICA] Allergy Intermediate STOMACH Verified 08/12/21 13:14 UPSET tramadol Allergy Intermediate abdominal Verified 08/12/21 13:14 pain gadobutrol [From GADAVIST] Allergy Mild ANAPHYLAXIS Verified 08/12/21 13:14 Statins Support Allergy Intermediate transaminit Uncoded 08/12/21 13:14 is contrast dye Allergy Unknown unknown Uncoded 08/12/21 13:14 lyrica Allergy Unknown swelling Uncoded 08/12/21 13:14 MRI contrast (gadolinium) AdvReac Unknown anaphylaxis Uncoded 08/12/21 13:14 Review of Systems Review of Systems: Yes all other systems are reviewed and are negative Constitutional: Constitutional: Reports no additional constitutional complaints, Reports body ache(s), Reports chills, Denies fever(s), Denies headache(s), Reports malaise and Denies weakness Eyes: Eyes: Reports no additional eye complaints and Denies change in vision ENT: Reports system reviewed and no additional complaints, except as documented, Denies dizziness, Denies headache(s), Denies nasal congestion, Denies nasal discharge and Reports neck pain Cardiovascular: Cardiovascular: Reports no additional cardiovascular complaints, Denies chest pain, Denies leg edema and Denies dyspnea Respiratory: Respiratory: Reports no additional respiratory complaints, Denies cough and Denies dyspnea Gastrointestinal: Gastrointestinal: Reports no additional gastrointestinal complaints, Denies abdominal pain, Denies diarrhea, Denies nausea and Denies vomiting Genitourinary: Genitourinary: Reports no additional female genitourinary complaints and Denies urinary incontinence Musculoskeletal: Musculoskeletal: Reports no additional musculoskeletal complaints, Reports back pain, Denies arthralgias, Denies joint swelling, Reports neck pain, Denies numbness and Denies tingling Integumentary/Breasts: Skin/Breast: Reports system reviewed and no additional complaints, except as docu and Denies rash Neurologic: Reports system reviewed and no additional complaints, except as documented, Denies dizziness, Denies headache(s), Denies numbness, Denies tingling and Denies weakness PMFSH Past Medical History Attestation statement: The following information was validated with the patient. Source: old records reviewed and nursing notes reviewed Medical History Abdominal pain Autoimmune thyroiditis Bilateral hand numbness Bipolar 1 disorder Breast mass, right Chronic constipation Chronic idiopathic constipation Diabetes type 2, uncontrolled Diabetic polyneuropathy associated with type 2 diabetes mellitus Dyslipidemia Fibromyalgia GERD (gastroesophageal reflux disease) Hand numbness Hypoactive bowel sounds Inflammatory arthritis Insomnia jail (current) use of insulin Low vitamin D level Lung cyst Neck pain Osteoarthritis of hand, left Post-surgical hypothyroidism Weight loss Surgical History History of esophagogastroduodenoscopy (EGD) History of hysterectomy History of thyroidectomy, total Hx of colonoscopy (1998) Hx of removal of cyst Family History Family History Father Status post liver transplant, biliary anastomotic size mismatch Brother No problems noted. Mother No problems noted. Maternal Aunt Breast cancer Other Mental health problem Substance abuse Social History Social History Household Members: None Housing: House Alcohol intake: unknown Patient Tobacco Use Status: Former Tobacco user Quit Date: 10+ yrs ago Cigarettes Per Day: 7 Years Smoked: 6 e-Cigarette/Vaping Use: Never Used Second Hand Smoke Exposure: No Advance Directives: Yes Advance Directives on File: Yes Advance Directives Date on File: 07/15/20 service: No Current occupational status: disabled Cognitive needs: No Hearing needs: No Vision needs: No Physical Exam ED Vital Signs: Vital Signs - 24 hr 08/13/21 15:09 08/13/21 17:59 08/13/21 18:07 Temperature 99.6 F Pulse Rate 83 64 Respiratory Rate 18 17 17 Blood Pressure 135/77 117/63 Pulse Oximetry 98 97 BMI result Body Mass Index 28.8 Const General: alert Orientation/consciousness: patient oriented x3 Limitations: no limitations HENMT Head: Yes normal to inspection Ears: hearing grossly normal bilaterally and TM's normal bilaterally General nose exam: Normal external nose present Face and sinus: Yes normal facial exam Mouth: Normal oral and palatal mucosa present Throat: Yes posterior oropharynx normal, Yes tonsils normal and Yes uvula midline Eyes General: appearance normal, both eyes and all related structures Pupils: Equal, round and reactive pupils present Neck Neck: Yes normal visual inspection, Yes no lymphadenopathy and Yes no meningeal signs Chest Chest palpation & inspection: normal inspection of the chest Resp Effort & Inspection: normal respiratory effort Auscultation: clear to auscultation bilaterally Cardio Rate: regular rate Rhythm: regular rhythm Peripheral pulses: Peripheral pulses 2+ throughout GI Inspection: Yes normal to inspection Palpation (GI): Soft to palpation and nontender General: Yes no CVA tenderness Back/Spine/Pelvis Back: no CVA tenderness Skin General skin exam: no rashes or lesions noted Neuro General: patient oriented x3, moves all extremities, no meningeal signs and Unable to assess gait Cranial nerves: Yes CN's II-XII intact bilaterally, Yes Equal, round and reactive pupils present, Yes Bilaterally intact EOM present, Yes Nystagmus not present, Yes Normal facial strength present and Yes Midline tongue present Cognition (Neuro): normal cognition Gait exam (Neuro): Unable to assess gait Sensory Exam: Normal double simultaneous stimulation for sensation Extrem General: Yes normal to inspection Course Course Course Narrative: 56 yo female here with body aches, weakness, pain radiating from neck to back described as 'burning. On arrival low grade temp Will check labs, UA, CXR, covid/flu testing Reevaluation(s) Reevaluation #1: Reviewed labs which show elevated LFTs from baseline. Reviewed LFTs from August 07 which are normal. Additional labs unremarkable. UA shows no signs of infection. Chest x-ray shows no evidence of pneumonia. COVID and flu testing are negative. Patient reports some right sided AP. No focal tenderness on exam. Will check abdominal US. Add on lyme panel. Pain is improving. Will add hepatitis panel, lipase ?from methotrexate Reevaluation #2: Abdominal US is unremarkable. patient has surgically absent GB. Tolerating PO. Feeling improved. Will discharge home with recommendations to repeat liver panel next week, discuss with her multiple specialists (endocrine,rhematology,PCP). Reviewed worrisome signs/symptoms with patient and when to seek additional care. Comfortable with plan for discharge home. Medical Decision Making Medical Records Medical records reviewed: Yes I reviewed the patient's medical records. Lab Data Lab results reviewed: Yes I reviewed the patient's lab results. Result diagrams: 08/13/21 16:06 08/13/21 16:06 Labs: Lab Results 08/13/21 08/13/21 08/13/21 Range/Units 15:22 15:22 16:04 WBC (4.8-10.8) X10*3/uL RBC (4.20-5.50) X10*6/uL Hgb (12.0-16.0) g/dl Hct (37.0-47.0) % MCV (80.0-98.0) fL MCH (27.0-33.0) pg MCHC (31.0-35.0) g/dl RDW (11.0-16.0) % Plt Count (160-400) X10*3/uL MPV (9.4-12.3) fL Immature Gran % (Auto) (0.0-0.4) % Neut % (Auto) (45-73) % Lymph % (Auto) (20-40) % Rhea % (Auto) (2-11) % Eos % (Auto) (0-4) % Baso % (Auto) (0-2) % Lymph # (Auto) (1.2-4.9) X10*3/uL Rhea # (Auto) (0.1-1.2) X10*3/uL Eos # (Auto) (0.0-0.4) X10*3/uL Baso # (Auto) (0.0-0.2) X10*3/uL Abs Immat Gran (auto) (0.00-0.03) X10*3/uL Absolute Neuts (auto) (2.0-8.3) x10*3/uL Absolute Nucleated RBC (0.0-0.012) X10*3/uL Nucleated RBC % (auto) (0.0-0.2) /100WBC PT (9.9-13.0) SEC INR (0.9-1.1) Sodium (135-145) mmol/L Potassium (3.3-5.1) mmol/L Chloride (96-108) mmol/L Carbon Dioxide (22-29) mmol/L Anion Gap (12-20) BUN (9-16) mg/dL Creatinine (0.5-1.4) mg/dL Estim Creat Clear Calc Estimated GFR Random Glucose (60-115) mg/dL Lactic Acid 1.0 (0.5-2.0) mmol/L Calcium (8.4-10.2) mg/dL Magnesium (1.6-2.6) mg/dL Total Bilirubin (0.0-1.0) mg/dL Direct Bilirubin (0.0-0.5) mg/dL AST (5-31) U/L ALT (0-31) U/L Alkaline Phosphatase (39-117) U/L Total Creatine Kinase (26-140) U/L Total Protein (6.5-8.0) g/dL Albumin (3.5-5.0) g/dL Lipase (8-78) U/L Urine Color Urine Appearance Urine pH (5.0-8.0) Ur Specific [place] (1.005-1.025) Urine Protein (NEG-TRACE) MG/DL Urine Glucose (UA) (NEG) MG/DL Urine Ketones (NEG) MG/DL Urine Blood (NEG) Urine Nitrite (NEG) Ur Leukocyte Esterase (NEG) COVID-19 (CORNELIO) Negative (Negative) COVID-19 Clin Com See Note Influenza Type A (ODETTE) Negative (Negative) Influenza Type B (ODETTE) Negative (Negative) Influenza A & B Note See Note 08/13/21 08/13/21 08/13/21 Range/Units 16:06 16:06 16:06 WBC 5.8 (4.8-10.8) X10*3/uL RBC 4.11 L (4.20-5.50) X10*6/uL Hgb 11.7 L (12.0-16.0) g/dl Hct 35.0 L (37.0-47.0) % MCV 85.2 (80.0-98.0) fL MCH 28.5 (27.0-33.0) pg MCHC 33.4 (31.0-35.0) g/dl RDW 12.8 (11.0-16.0) % Plt Count 194 (160-400) X10*3/uL MPV 9.2 L (9.4-12.3) fL Immature Gran % (Auto) 0.3 (0.0-0.4) % Neut % (Auto) 88.8 H (45-73) % Lymph % (Auto) 6.3 L (20-40) % Rhea % (Auto) 4.3 (2-11) % Eos % (Auto) 0.0 (0-4) % Baso % (Auto) 0.3 (0-2) % Lymph # (Auto) 0.4 L (1.2-4.9) X10*3/uL Rhea # (Auto) 0.3 (0.1-1.2) X10*3/uL Eos # (Auto) 0.0 (0.0-0.4) X10*3/uL Baso # (Auto) 0.0 (0.0-0.2) X10*3/uL Abs Immat Gran (auto) 0.02 (0.00-0.03) X10*3/uL Absolute Neuts (auto) 5.2 (2.0-8.3) x10*3/uL Absolute Nucleated RBC 0.000 (0.0-0.012) X10*3/uL Nucleated RBC % (auto) 0.0 (0.0-0.2) /100WBC PT 13.1 H (9.9-13.0) SEC INR 1.2 H (0.9-1.1) Sodium 132 L (135-145) mmol/L Potassium 3.8 (3.3-5.1) mmol/L Chloride 104 (96-108) mmol/L Carbon Dioxide 22 (22-29) mmol/L Anion Gap 10 L (12-20) BUN 15 (9-16) mg/dL Creatinine 0.79 (0.5-1.4) mg/dL Estim Creat Clear Calc 88.2 Estimated GFR > 60 Random Glucose 246 H (60-115) mg/dL Lactic Acid (0.5-2.0) mmol/L Calcium 9.2 (8.4-10.2) mg/dL Magnesium 1.8 (1.6-2.6) mg/dL Total Bilirubin 1.7 H (0.0-1.0) mg/dL Direct Bilirubin 0.6 H (0.0-0.5) mg/dL AST 68 H (5-31) U/L ALT 60 H (0-31) U/L Alkaline Phosphatase 101 (39-117) U/L Total Creatine Kinase 104 (26-140) U/L Total Protein 8.4 H (6.5-8.0) g/dL Albumin 3.9 (3.5-5.0) g/dL Lipase 5 L (8-78) U/L Urine Color Urine Appearance Urine pH (5.0-8.0) Ur Specific [place] (1.005-1.025) Urine Protein (NEG-TRACE) MG/DL Urine Glucose (UA) (NEG) MG/DL Urine Ketones (NEG) MG/DL Urine Blood (NEG) Urine Nitrite (NEG) Ur Leukocyte Esterase (NEG) COVID-19 (CORNELIO) (Negative) COVID-19 Clin Com Influenza Type A (ODETTE) (Negative) Influenza Type B (ODETTE) (Negative) Influenza A & B Note 08/13/21 Range/Units 16:13 WBC (4.8-10.8) X10*3/uL RBC (4.20-5.50) X10*6/uL Hgb (12.0-16.0) g/dl Hct (37.0-47.0) % MCV (80.0-98.0) fL MCH (27.0-33.0) pg MCHC (31.0-35.0) g/dl RDW (11.0-16.0) % Plt Count (160-400) X10*3/uL MPV (9.4-12.3) fL Immature Gran % (Auto) (0.0-0.4) % Neut % (Auto) (45-73) % Lymph % (Auto) (20-40) % Rhea % (Auto) (2-11) % Eos % (Auto) (0-4) % Baso % (Auto) (0-2) % Lymph # (Auto) (1.2-4.9) X10*3/uL Rhea # (Auto) (0.1-1.2) X10*3/uL Eos # (Auto) (0.0-0.4) X10*3/uL Baso # (Auto) (0.0-0.2) X10*3/uL Abs Immat Gran (auto) (0.00-0.03) X10*3/uL Absolute Neuts (auto) (2.0-8.3) x10*3/uL Absolute Nucleated RBC (0.0-0.012) X10*3/uL Nucleated RBC % (auto) (0.0-0.2) /100WBC PT (9.9-13.0) SEC INR (0.9-1.1) Sodium (135-145) mmol/L Potassium (3.3-5.1) mmol/L Chloride (96-108) mmol/L Carbon Dioxide (22-29) mmol/L Anion Gap (12-20) BUN (9-16) mg/dL Creatinine (0.5-1.4) mg/dL Estim Creat Clear Calc Estimated GFR Random Glucose (60-115) mg/dL Lactic Acid (0.5-2.0) mmol/L Calcium (8.4-10.2) mg/dL Magnesium (1.6-2.6) mg/dL Total Bilirubin (0.0-1.0) mg/dL Direct Bilirubin (0.0-0.5) mg/dL AST (5-31) U/L ALT (0-31) U/L Alkaline Phosphatase (39-117) U/L Total Creatine Kinase (26-140) U/L Total Protein (6.5-8.0) g/dL Albumin (3.5-5.0) g/dL Lipase (8-78) U/L Urine Color YELLOW Urine Appearance CLEAR Urine pH 7.5 (5.0-8.0) Ur Specific [place] 1.010 (1.005-1.025) Urine Protein NEG (NEG-TRACE) MG/DL Urine Glucose (UA) 100 H (NEG) MG/DL Urine Ketones NEG (NEG) MG/DL Urine Blood NEG (NEG) Urine Nitrite NEG (NEG) Ur Leukocyte Esterase NEG (NEG) COVID-19 (CORNELIO) (Negative) COVID-19 Clin Com Influenza Type A (ODETTE) (Negative) Influenza Type B (ODETTE) (Negative) Influenza A & B Note Imaging Data Chest x-ray: Attestation: I personally reviewed and interpreted this imaging study as follows: Radiologist's impression: Launch?Image [place] [id number] XRay Report Signed Patient: Cece Conley MR#: [id number] : 1965 Acct:[id number] Age/Sex: 56 / F ADM Date: 08/13/21 Loc: .ED Attending Dr: Ordering Physician: Rebecca Manriquez NP Date of Service: 08/13/21 Procedure(s): XR chest 2V Accession Number(s): [id number] cc: Rebecca Manriquez NP~ EXAMINATION: XR CHEST CLINICAL INFORMATION: Weakness. COMPARISON: 06/02/2018 chest and rib radiographs. TECHNIQUE: 2 views of the chest were obtained. FINDINGS: No significant abnormality is noted involving the heart, lungs, mediastinum, bony thorax or soft tissues. XR/XR chest 2V IMPRESSION: No acute cardiopulmonary process. US - abdomen: Attestation: I personally reviewed and interpreted this imaging study as follows: Radiologist's impression: TECHNIQUE: Real-time imaging of the liver. Single organ ultrasound only per ordering request. FINDINGS: PANCREAS: Normal. LIVER: Normal. The liver is normal in size. The liver contour is normal. Parenchymal echogenicity is normal. No focal hepatic lesion. There is no intrahepatic biliary duct dilatation seen. RIGHT KIDNEY: Limited nondedicated views of the right kidney demonstrate no hydronephrosis. US/US abdomen limited IMPRESSION: Unremarkable sonographic appearance of the liver. Discharge Plan Discharge Clinical Impression: Elevated liver enzymes, Back pain Patient Disposition: Still a Patient Instructions: Back Pain (ED) Additional Instructions: Your liver enzyme tests are elevated. These need to be re-checked next week. Seek care for multiple episodes of vomiting, severe abdominal pain, yellowing of the skin, fever >100.4 Your blood cultures, testing for lyme disease and hepatitis panel will take several days to come back. We will call you if these are abnormal. Your additional lab work, chest x-ray, urine sample is reassuring Your testing for flu and covid are negative Increase fluids, rest Continue your home medications. Discuss your ED visit today with your specialists (roll finisher, rhemumatologist). Prescriptions: No Action loratadine 10 mg capsule 10 mg PO DAILY 90 Days Qty: 90 3RF levothyroxine 175 mcg tablet 175 mcg PO DAILY 90 Days Qty: 90 3RF ibuprofen 800 mg tablet 800 mg PO Q8H PRN (Reason: pain) 30 Days Qty: 90 0RF zolpidem 10 mg tablet 10 mg PO BEDTIME 30 Days Qty: 30 0RF oxycodone 10 mg tablet 10 mg PO BID PRN (Reason: pain) 30 Days Qty: 60 0RF Hold Instructions: Doctor's Order albuterol sulfate 90 mcg/actuation HFA aerosol inhaler inhalation 0RF ([facility]) [place] [facility] [place] Rx Instructions .MEDSUPPLY Qty: 1 0RF Rx Instructions: Comfort form wrist splint with thumb-LT-M ([facility]) blood-glucose meter [FreeStyle Lite Meter] Kit See Rx Instructions .Route Qty: 1 0RF Rx Instructions: As directed ([facility]) FreeStyle Lite Strips Strip See Rx Instructions .Route Qty: 100 11RF Rx Instructions: As directed 3 times a day miscellaneous medical [place] [facility] [place] miscellaneous DAILY Qty: 1 0RF Rx Instructions: Cane ondansetron HCl 8 mg tablet 8 mg PO DAILY PRN0RF folic acid 1 mg tablet 1 mg PO DAILY Qty: 30 3RF miconazole nitrate [Miconazole-7] 2 % cream 1 appful vaginal BEDTIME 7 Days Qty: 45 3RF fluconazole 150 mg tablet 150 mg PO Q3D 0 Days Qty: 2 1RF Rx Instructions: may repeat second dose 72 hrs after first dose if symptoms persist methotrexate sodium 2.5 mg tablet 15 mg PO QWEEK Qty: 24 0RF cholecalciferol (vitamin D3) 50 mcg (2,000 unit) capsule 50 mcg PO DAILY 30 Days Qty: 30 3RF atorvastatin 20 mg tablet 20 mg PO BEDTIME Qty: 30 11RF (DME) lancets [TRUEplus Lancets] 33 gauge misc See Rx Instructions .ROUTE .MEDSUPPLY Qty: 200 8RF Rx Instructions: As directed 4x/day Tresiba FlexTouch U-200 200 unit/mL (3 mL) insulin pen 36 unit subcut BEDTIME 30 Days Qty: 5.4 6RF insulin aspart U-100 [Novolog Flexpen U-100 Insulin] 100 unit/mL (3 mL) insulin pen 6 - 10 unit subcut TID Qty: 15 4RF (DME) pen needle, diabetic [BD Ultra-Fine Alivia Pen Needle] 32 gauge x 5/32 needle See Rx Instructions .ROUTE .MEDSUPPLY Qty: 150 11RF Rx Instructions: As directed 4x/day Referrals: Becca Sprague MD [Primary Care Provider] - 5 days (for repeat labs)
[2021-08-13 15:59] LABS: COVID-19 Test Negative (Negative); IDNOW Serial# 16C4AD1C; Influenza A Negative (Negative); Influenza B2 Negative (Negative)
[2021-08-13] MEDS: Ketorolac Tromethamine 30 MG/ML VIAL IVPUSH (16:08)
[2021-08-13] MEDS: 0.9 % Sodium Chloride 1,000 ML 999 ML IV (16:09)
[2021-08-13 16:10] LABS: MANUAL DIFF FLAG NO
[2021-08-13 16:12] LABS: Basophils Percent Auto 0.3 % (0-2); Hemoglobin 11.7 g/dl (12.0-16.0); Imm Gran Abs Auto 0.02 X10*3/uL (0.00-0.03); Imm Gran Pct Auto 0.3 % (0.0-0.4); Lymphocytes Absolute Auto 0.4 X10*3/uL (1.2-4.9); Lymphocytes Percent Auto 6.3 % (20-40); Mean Corpuscular HGB Conc 33.4 g/dl (31.0-35.0); Mean Corpuscular Hemoglobin 28.5 pg (27.0-33.0); Mean Corpuscular Volume 85.2 fL (80.0-98.0); Mean Platelet Volume 9.2 fL (9.4-12.3); Monocytes Absolute Auto 0.3 X10*3/uL (0.1-1.2); Monocytes Percent Auto 4.3 % (2-11); Neutrophils Absolute Auto 5.2 x10*3/uL (2.0-8.3); Neutrophils Percent Auto 88.8 % (45-73); Platelet Count 194 X10*3/uL (160-400); Red Blood Count 4.11 X10*6/uL (4.20-5.50); Red Cell Distribution Width 12.8 % (11.0-16.0); White Blood Count 5.8 X10*3/uL (4.8-10.8)
[2021-08-13 16:17] LABS: INTERNATIONAL NORM RATIO 1.2 (0.9-1.1); Prothrombin Time 13.1 SEC (9.9-13.0)
[2021-08-13 16:23] LABS: Appearance Urine CLEAR; Color Urine YELLOW; Glucose Urine UA 100 MG/DL (NEG); Leukocyte Esterase Urine NEG (NEG); Nitrite Urine NEG (NEG); PH 7.5 (5.0-8.0); Urine Blood NEG (NEG); Urine Ketones NEG (NEG); Urine Protein NEG (NEG-TRACE)
[2021-08-13 16:28] LABS: Alanine Aminotransferase 60 U/L (0-31); Albumin Level 3.9 g/dL (3.5-5.0); Alkaline Phosphatase 101 U/L (39-117); Anion Gap 10 (12-20); Aspartate Amino Transferase 68 U/L (5-31); Bilirubin Direct 0.6 mg/dL (0.0-0.5); Bilirubin Total 1.7 mg/dL (0.0-1.0); Blood Urea Nitrogen 15 mg/dL (9-16); Calcium 9.2 mg/dL (8.4-10.2); Carbon Dioxide 22 mmol/L (22-29); Chloride 104 mmol/L (96-108); Creatinine Clr Calc Pharmacy 88.2; Estimated Glomerular Filt Rate > 60; Glucose Random 246 mg/dL (60-115); Magnesium 1.8 mg/dL (1.6-2.6); Potassium 3.8 mmol/L (3.3-5.1); Sodium 132 mmol/L (135-145); Total Protein 8.4 g/dL (6.5-8.0)
[2021-08-13 17:42] LABS: Lipase 5 U/L (8-78)
[2021-08-13 17:59] VITALS: RESP 17
[2021-08-13] MEDS: Morphine Sulfate 4 MG/ML CARTRIDGE IVPUSH (17:59)
[2021-08-13] MEDS: ondansetron HCL 4 MG/2 ML VIAL IVPUSH (17:59)
[2021-08-13 18:07] VITALS: BP 117/63; PULSE 64; RESP 17; O2SAT 97
[2021-08-14 05:22] LABS: HBS Num1 0.98 mIU/mL (0-7.99); HBc Num1 0.25 S/CO (0.00-0.79); HBsAGNum1 0.23 S/CO (0.00-0.99); Hepatitis A Antibody IgM 0.16 Index (0-0.79); Hepatitis B Core Antibody Nonreactive (Nonreactive); Hepatitis B Surface Antigen Negative (Negative); ~HepC Num1 0.12 S/CO (0.00-0.79); ~Hepatitis A Antibody IgM Nonreactive (Nonreactive); ~Hepatitis B Surface Antibody NONREACTIVE (Nonreactive); ~Hepatitis C Antibody Nonreactive (Nonreactive)
[2021-08-15 12:57] LABS: Lyme Abs Screen <0.90 index
== END 2021-08-13 19:02 | disposition home or self-care (01) ==
PROVIDERS: Nurse Practitioner Family; Emergency Provider Emergency Medicine; PCP Internal Medicine
DX: R50.9 Fever, unspecified (principal); R10.9 Unspecified abdominal pain; R07.89 Other chest pain; M54.50 Low back pain, unspecified; R79.89 Other specified abnormal findings of blood chemistry; Z20.822 Contact with and (suspected) exposure to COVID-19; Z79.899 Other long term (current) drug therapy
CPT/HCPCS: 36415; 71046; 76705; 80048; 80076; 81003; 82550; 83605; 83690; 83735; 85025; 85610; 86617; 86618; 86704; 86706; 86709; 86803; 87040; 87340; 87502; 87635; 96361; 96374; 96375; 99283; 99284; J1885; J2270; J2405

== ENCOUNTER 2021-10-12 14:56 | Outpatient (REF) | payer MEDICARE, MEDICAID, SELFPAY ==
[2021-10-12 15:06] LABS: MANUAL DIFF FLAG NO
[2021-10-12 15:21] LABS: Basophils Percent Auto 0.7 % (0-2); Eosinophils Percent Auto 0.4 % (0-4); Hematocrit 38.9 % (37.0-47.0); Imm Gran Abs Auto 0.01 X10*3/uL (0.00-0.03); Imm Gran Pct Auto 0.2 % (0.0-0.4); Lymphocytes Absolute Auto 1.6 X10*3/uL (1.2-4.9); Lymphocytes Percent Auto 35.9 % (20-40); Mean Corpuscular HGB Conc 33.4 g/dl (31.0-35.0); Mean Corpuscular Hemoglobin 28.8 pg (27.0-33.0); Mean Corpuscular Volume 86.3 fL (80.0-98.0); Mean Platelet Volume 9.6 fL (9.4-12.3); Monocytes Absolute Auto 0.3 X10*3/uL (0.1-1.2); Monocytes Percent Auto 6.9 % (2-11); Neutrophils Absolute Auto 2.5 x10*3/uL (2.0-8.3); Neutrophils Percent Auto 55.9 % (45-73); Platelet Count 195 X10*3/uL (160-400); Red Blood Count 4.51 X10*6/uL (4.20-5.50); Red Cell Distribution Width 13.3 % (11.0-16.0); White Blood Count 4.5 X10*3/uL (4.8-10.8)
[2021-10-12 15:44] LABS: Alanine Aminotransferase 232 U/L (0-31); Aspartate Amino Transferase 151 U/L (5-31); C Reactive Protein 0.56 mg/dL (< or = 0.50); Estimated Glomerular Filt Rate 53
[2021-10-12 16:16] LABS: Erythrocyte Sedimentation Rate 17 MM/HR (0-20)
== END 2021-10-12 14:57 | disposition home or self-care (01) ==
LOC: HO.LAB 14:56
PROVIDERS: PCP Internal Medicine; Visit Provider Nurse Practitioner Family
DX: M06.00 Rheumatoid arthritis without rheumatoid factor, unspecified site (principal); M54.50 Low back pain, unspecified; M19.042 Primary osteoarthritis, left hand; Z79.899 Other long term (current) drug therapy
CPT/HCPCS: 36415; 82565; 84450; 84460; 85025; 85652; 86140; 99212

== ENCOUNTER 2021-10-13 14:34 | Outpatient (REF) | payer MEDICARE, MEDICAID, SELFPAY ==
[2021-10-13 15:47] LABS: Iron 102 mcg/dL (30-160); Percent Iron Saturation 30 % (15-50); Total Iron Binding Capacity 336 mcg/dL (228-428); Unsaturated Iron Binding 234 ug/dL
[2021-10-13 16:04] LABS: Ferritin 322 ng/mL (10-250)
[2021-10-14 05:21] LABS: HBc Num1 0.11 S/CO (0.00-0.79); HBsAGNum1 0.27 S/CO (0.00-0.99); Hepatitis A Antibody IgM 0.11 Index (0-0.79); Hepatitis B Core Antibody Nonreactive (Nonreactive); Hepatitis B Surface Antigen Negative (Negative); ~HepC Num1 0.06 S/CO (0.00-0.79); ~Hepatitis A Antibody IgM Nonreactive (Nonreactive); ~Hepatitis B Surface Antibody NONREACTIVE (Nonreactive); ~Hepatitis C Antibody Nonreactive (Nonreactive)
[2021-10-20 23:13] LABS: Smooth Muscle Antibody 56 U (<20)
[2021-10-21 07:47] LABS: Mitochondrial Antibodies NEGATIVE (NEGATIVE)
== END 2021-10-13 14:35 | disposition home or self-care (01) ==
LOC: HO.LAB 14:34
PROVIDERS: PCP Internal Medicine; Visit Provider Nurse Practitioner Family
DX: R74.8 Abnormal levels of other serum enzymes (principal)
CPT/HCPCS: 36415; 82728; 83540; 86015; 86255; 86256; 86704; 86706; 86709; 86803; 87340

== ENCOUNTER 2021-10-22 15:06 | Outpatient (REF) | payer MEDICARE, MEDICAID, SELFPAY ==
[2021-10-23 12:47] LABS: BV Int Neg Control Negative (Negative); BV Int Pos Control Positive (Positive)
== END 2021-10-22 15:07 | disposition home or self-care (01) ==
LOC: HO.LAB 15:06
PROVIDERS: Visit Provider Advanced Practice Midwife
DX: B37.3 Candidiasis of vulva and vagina (principal); N89.8 Other specified noninflammatory disorders of vagina
CPT/HCPCS: 87480; 87510; 87660; 99212

== ENCOUNTER 2021-11-04 14:30 | Outpatient (RCR) | payer MEDICARE, MEDICAID, SELFPAY ==
--- NOTE | 2021-11-04 14:53 | MHC.OT.DC ---
[address] [phone] F: [phone] Occupational Therapy Discharge Note Provider: Brie Trinh NP Diagnosis: B/L Hand Pain Date of Evaluation: 10/01/21 Date of Discharge: 11/04/21 Treatments to Date: 3 Discharge Status: Achieved Goals Improved Function Independent with HEP Discharge Summary: Cece was referred to OT w/ B/L hand pain due to arthritis. She has been very well w/ brief course of OT. She comes today pain free and good carry over w/ home exercise program and activity modification for ease w/ daily activities. She has been educated and has good understanding of self management skills. Electronically Signed By: Joanie Aragon, OTR/L CHT Please Sign and return to therapist, thank you for your referral.
== END 2021-11-04 14:54 | disposition home or self-care (01) ==
LOC: HO.OT 14:30
PROVIDERS: PCP Internal Medicine; Visit Provider Nurse Practitioner Family
DX: M79.641 Pain in right hand (principal); M79.642 Pain in left hand
CPT/HCPCS: 97018; 97110; 97166

== ENCOUNTER → 2021-11-05 12:10 | Outpatient (BNVA) | payer MEDICARE, MEDICAID, SELFPAY | PROVIDERS: PCP Internal Medicine; Visit Provider Physician Assistant | DX: R74.8 Abnormal levels of other serum enzymes (principal); R10.9 Unspecified abdominal pain | CPT/HCPCS: 99202; 99212 ==

== ENCOUNTER 2021-11-09 10:57 | Outpatient (REF) | payer MEDICARE, MEDICAID, SELFPAY ==
[2021-11-10 11:19] LABS: H Pylori Breath Test Positive (Negative)
== END 2021-11-09 10:58 | disposition home or self-care (01) ==
LOC: HO.LAB 10:57
PROVIDERS: Visit Provider Internal Medicine
DX: Z13.89 Encounter for screening for other disorder (principal)
CPT/HCPCS: 36415; 83013

== ENCOUNTER 2021-11-09 10:58 | Outpatient (REF) | payer MEDICARE, MEDICAID, SELFPAY ==
[2021-11-09 12:14] LABS: Prothrombin Time 11.3 SEC (10.0-13.1)
[2021-11-09 12:45] LABS: Microalbumin Urine < 5.0 mg/L
[2021-11-09 12:55] LABS: Alanine Aminotransferase 59 U/L (0-31); Albumin Level 3.8 g/dL (3.5-5.0); Alkaline Phosphatase 102 U/L (39-117); Anion Gap 12 (12-20); Aspartate Amino Transferase 44 U/L (5-31); Bilirubin Total 0.7 mg/dL (0.0-1.0); Blood Urea Nitrogen 12 mg/dL (9-16); Carbon Dioxide 26 mmol/L (22-29); Chloride 103 mmol/L (96-108); Cholesterol 179 mg/dL; Estimated Glomerular Filt Rate > 60; Glucose Fasting 156 mg/dL (60-99); HDL Cholesterol 57 mg/dL; LDL Cholesterol Calculated 108 mg/dl; Sodium 137 mmol/L (135-145); Total Protein 8.1 g/dL (6.5-8.0); Triglycerides 74 mg/dL
[2021-11-09 12:56] LABS: Bilirubin Direct 0.3 mg/dL (0.0-0.5); Gamma Glutamyl Transpeptidase 99 U/L (7-33)
[2021-11-09 13:05] LABS: Thyroid Stimulating Hormone 0.44 uIU/mL (0.32-4.0); Vitamin D 25-OH Total 16.9 ng/mL (>30)
[2021-11-09 13:22] LABS: Folate 16.5 ng/mL (> or = 4.0); Vitamin B12 848 pg/mL (200-900)
[2021-11-09 16:12] LABS: Alanine Aminotransferase 58 U/L (0-31); Albumin Level 3.7 g/dL (3.5-5.0); Alkaline Phosphatase 103 U/L (39-117); Aspartate Amino Transferase 45 U/L (5-31)
[2021-11-11 04:54] LABS: Hepatitis A Antibody IgG Nonreactive (Nonreactive); ~Hepatitis A Antibody IgG 0.67 S/CO (0.00-0.99)
[2021-11-11 15:02] LABS: Alpha 1 Anti-trypsin 143 mg/dL (83-199); Ceruloplasmin 26 mg/dL (18-53)
[2021-11-13 13:41] LABS: Liver Kidney Microsomal Ab <=20.0 U (<=20.0)
== END 2021-11-09 10:59 | disposition home or self-care (01) ==
LOC: HO.LAB 10:58
PROVIDERS: Internal Medicine Endocrinology, Diabetes & Metabolism; PCP Internal Medicine; Visit Provider Internal Medicine
DX: R10.9 Unspecified abdominal pain (principal); E78.5 Hyperlipidemia, unspecified; E11.9 Type 2 diabetes mellitus without complications; E55.9 Vitamin D deficiency, unspecified; E04.9 Nontoxic goiter, unspecified; E89.0 Postprocedural hypothyroidism; R74.8 Abnormal levels of other serum enzymes
CPT/HCPCS: 36415; 80053; 80061; 82040; 82043; 82103; 82248; 82306; 82390; 82607; 82746; 82784; 82977; 83013; 84075; 84155; 84443; 84450; 84460; 85610; 86376; 86708; 99212

== ENCOUNTER 2021-11-11 11:08 | Outpatient (REF) | payer MEDICARE, MEDICAID, SELFPAY ==
--- NOTE | ~2021-11-11 | CT_ITS ---
EXAMINATION: CT ABDOMEN AND PELVIS WITHOUT CONTRAST CLINICAL INFORMATION: Unspecified abdominal pain COMPARISON: None TECHNIQUE: Multidetector volumetric imaging was performed from the superior aspect of the liver through the pubic symphysis. Sagittal and coronal reformatted images were obtained on the technologist's workstation. This CT examination was performed using dose optimization techniques as appropriate, variously including the following: *Automated exposure control *Adjustment of mA and/or kV according to patient size (this includes techniques or standardized protocols for targeted exams where dose is matched to indication/reason for exam; i.e. extremities or head) *Use of iterative reconstruction technique DLP: 458 mGy-cm FINDINGS: LUNG BASES: The visualized lung bases are unremarkable. LIVER, GALLBLADDER, AND BILIARY TREE: The liver is normal in size, shape, and attenuation. No focal hepatic lesion or biliary ductal dilatation is present. The gallbladder has been surgically removed. PANCREAS: Unremarkable. SPLEEN: Unremarkable. ADRENAL GLANDS: Unremarkable. KIDNEYS AND URETERS: The kidneys are normal in size, shape, and attenuation. No hydronephrosis, hydroureter, or calculi seen. No perinephric stranding. BLADDER: Unremarkable. GASTROINTESTINAL TRACT: There is moderate amount of stool, gas and oral contrast throughout the colon without distention. Oral contrast opacified small bowel loops are normal caliber. Appendix is not visualized. ABDOMINAL WALL: No significant hernia is appreciated. LYMPH NODES: Normal. VASCULAR: Unremarkable. PELVIC VISCERA: The uterus is not visualized. There is no adnexal mass. No free fluid. OSSEOUS STRUCTURES: There is bilateral L5-S1 facet joint arthropathy. No lytic or sclerotic process seen. CT/CT abdomen pelvis wo con IMPRESSION: Moderate to significant constipation without obstruction. No acute intra-abdominal process seen. Fleischner guidelines were followed.
[2021-11-11] MEDS: Barium Sulfate Oral (Berry) 450 ML ORAL.SUSP 900 ML PO (13:32)
== END 2021-11-11 11:09 | disposition home or self-care (01) ==
LOC: HO.CT 11:08
PROVIDERS: PCP Internal Medicine; Visit Provider Internal Medicine
DX: R10.9 Unspecified abdominal pain (principal)
CPT/HCPCS: 74176

== ENCOUNTER 2021-11-25 08:41 | Outpatient (REF) | payer MEDICARE, MEDICAID, SELFPAY ==
--- NOTE | ~2021-11-25 | FL_ITS ---
EXAMINATION: FL BARIUM SWALLOW CLINICAL INFORMATION: Dysphagia. COMPARISON: None TECHNIQUE: Barium swallow examination is performed using fluoroscopic evaluation in addition to multiple fluoroscopic spot views. The patient is imaged both upright and prone and using both thick and thin sulfate along with effervescent granules. Fluoroscopy time: 1.7 minutes DAP: 15.262 Gycm2 Images: 68 FINDINGS: Following oral administration of thick barium and barium coated tablet, there is normal propagation bolus from the oral cavity through the pharynx, esophagus into stomach without any evidence of obstruction, narrowing or stricture. There is spontaneous passage of barium tablet through the GE junction. On oral administration of thick barium there is slow mastication however the transit of the bolus from oral cavity, pharynx, esophagus into stomach. On placing patient prone lying an oral administration of thick barium, there is a small sliding hiatal hernia without gastroesophageal reflux. FL/FL barium swallow IMPRESSION: Small sliding hiatal hernia without gastroesophageal reflux in supine lying position. The rest of the barium swallow exam is unremarkable.
== END 2021-11-25 08:42 | disposition home or self-care (01) ==
LOC: HO.XRAY 08:41
PROVIDERS: PCP Internal Medicine; Visit Provider Internal Medicine
DX: R13.10 Dysphagia, unspecified (principal)
CPT/HCPCS: 74220

== ENCOUNTER → 2021-11-27 13:10 | Outpatient (REF) | payer MEDICARE, MEDICAID, SELFPAY ==
--- NOTE | 2021-11-27 13:12 | ECG_ITS ---
Hook-up date: 2021-11-27 12:23:00 Duration: 47:59:00 Test Indications: PALPITATIONS Medications: [id number] QRS complexes 163 Ventricular ectopics which represent <1 % of total QRS comp. 15 Supraventricular ectopics which represent <1 % of total QRS comp. * Paced QRS complexs which represent % of total QRS comp. VENTRICULAR ECTOPY 163 Isolated 0 Bigeminal Cycles 0 Couplets 0 Runs 0 Beats in Runs * Beats LONGEST at * BPM at :: -- * Beats FASTEST at * BPM at :: -- SUPRAVENTRICULAR ECTOPY 13 Isolated 1 Couplets 0 Runs 0 Beats in Runs * Beats LONGEST at * BPM at :: -- * Beats FASTEST at * BPM at :: -- HEART RATES 46 MIN at 05:20:47 2021-11-28 78 AVG 139 MAX at 10:46:32 2021-11-28 LONGEST RR 1.4240 secs at 06:49:12 2021-11-29 S-T LEVELS Channel 1 - 128 mm at 12:23:00 2021-11-27 - 128 mm at 12:23:00 2021-11-27 Channel 2 - 128 mm at 12:23:00 2021-11-27 - 128 mm at 12:23:00 2021-11-27 Channel 3 - 128 mm at 03:14:21 -- - 128 mm at 03:14:21 Total monitoring time 48 Hrs; Underlying rhythm is sinus; Average ventricular rate 78/min; range 46-139/min; Rare supraventricular and ventricular ectopy; No sustained arrhythmias; Patient reported no symptoms during the time of holter. Referred By: Becca Newberry Overread By: DARRYL HERNANDEZ
== END ==
LOC: HO.CARD 13:10
PROVIDERS: PCP Internal Medicine; Visit Provider Internal Medicine
DX: R00.2 Palpitations (principal)
CPT/HCPCS: 93225; 93226

== ENCOUNTER → 2021-12-01 12:42 | Outpatient (BNVA) | payer MEDICARE, MEDICAID, SELFPAY | PROVIDERS: PCP Internal Medicine; Visit Provider Internal Medicine | DX: Z01.818 Encounter for other preprocedural examination (principal); R74.8 Abnormal levels of other serum enzymes; R13.10 Dysphagia, unspecified | CPT/HCPCS: 99212 ==

== ENCOUNTER → 2021-12-09 13:26 | Outpatient (BNVA) | payer MEDICARE, MEDICAID, SELFPAY | PROVIDERS: PCP Internal Medicine; Visit Provider Internal Medicine Pulmonary Disease | DX: R06.00 Dyspnea, unspecified (principal); J43.9 Emphysema, unspecified | CPT/HCPCS: 99212 ==

== ENCOUNTER 2021-12-17 12:22 | Outpatient (REF) | payer MEDICARE, MEDICAID, SELFPAY ==
--- NOTE | ~2021-12-17 | CT_ITS ---
EXAMINATION: CT CHEST WITHOUT CONTRAST CLINICAL INFORMATION: Emphysema COMPARISON: Previous chest CT June 2020 and chest x-ray July 2021 TECHNIQUE: Multidetector volumetric CT imaging of the chest was done. Axial MIP volume rendering provided. Sagittal and coronal reformatted images were obtained. This CT examination was performed using dose optimization techniques as appropriate, variously including the following: *Automated exposure control *Adjustment of mA and/or kV according to patient size (this includes techniques or standardized protocols for targeted exams where dose is matched to indication/reason for exam; i.e. extremities or head) *Use of iterative reconstruction technique DLP: 164 mGy-cm FINDINGS: LUNGS: There is evidence of mild paraseptal emphysema. Small pulmonary nodules are stable. Largest pulmonary nodule is a 3 mm calcified right upper lobe nodule axial image 266 series 5. No new pulmonary nodule. No endobronchial or endotracheal lesion. MEDIASTINUM: Upper normal-size ascending thoracic aorta. Normal heart size. No pericardial effusion. No coronary artery calcification. No hilar or mediastinal lymph nodes. Small right cardiophrenic angle or anterior diaphragmatic lymph nodes measuring 5 mm axial image 45 series 3. CORONARY ARTERY CALCIFICATION: None visualized on this study. PLEURA: There is no pleural effusion. No pleural mass or thickening. AXILLA: No lymphadenopathy. UPPER ABDOMEN: The gallbladder has been removed. OSSEOUS STRUCTURES: There are degenerative changes of the spine. CT/CT chest wo IV con IMPRESSION: Mild paraseptal emphysema. Stable small pulmonary nodules. Fleischner guidelines were followed.
== END 2021-12-17 12:23 | disposition home or self-care (01) ==
LOC: HO.CT 12:22
PROVIDERS: PCP Internal Medicine; Visit Provider Internal Medicine Pulmonary Disease
DX: J43.9 Emphysema, unspecified (principal)
CPT/HCPCS: 71250

== ENCOUNTER 2021-12-18 11:47 | Day surgery (SDC) | payer MEDICARE, MEDICAID, SELFPAY ==
--- NOTE | ~2021-12-18 | US_ITS ---
PROCEDURE: US-GUIDED LIVER CORE BIOPSY CLINICAL INFORMATION: Elevated LFTs. COMPARISON: CT scan of 11/11/2021 and ultrasound of 08/13/2021. TECHNIQUE: Ultrasound-guided liver core biopsy. FINDINGS/PROCEDURE: Informed consent was obtained from the patient prior to the procedure. During this process, the procedure and potential alternatives were explained, along with the intended outcome and benefits. The risks of the procedure, as well as the risk of not doing the procedure, were discussed. The patient was given the opportunity to ask questions regarding the procedure and appeared competent to make medical decisions. A signed consent form which documents this discussion was placed in the medical record. Using sterile technique and ultrasound guidance, a 17-gauge guiding needle was placed from an anterior approach into the left lobe of liver. Three 18-gauge core biopsies were obtained and placed in formalin. Needle was removed with compression over biopsy site performed. Post procedure ultrasound does not demonstrate any abnormal subcapsular or extracapsular fluid collection. CONSCIOUS SEDATION: The patient received intravenous conscious sedation under my direct supervision. A registered nurse monitored the patient and the patient's vital signs throughout the procedure. The total sedation time was 18 minutes. A total of 2 mg of Versed and 100 mcg fentanyl was given for good effect. US/US biopsy liver IMPRESSION: Core liver biopsy as described.
[2021-12-18 12:23] LABS: MANUAL DIFF FLAG NO
[2021-12-18 12:26] LABS: Basophils Percent Auto 0.7 % (0-2); Eosinophils Percent Auto 0.4 % (0-4); Hematocrit 38.7 % (37.0-47.0); Hemoglobin 13.1 g/dl (12.0-16.0); Imm Gran Abs Auto 0.01 X10*3/uL (0.00-0.03); Imm Gran Pct Auto 0.2 % (0.0-0.4); Lymphocytes Absolute Auto 1.6 X10*3/uL (1.2-4.9); Lymphocytes Percent Auto 35.4 % (20-40); Mean Corpuscular HGB Conc 33.9 g/dl (31.0-35.0); Mean Corpuscular Hemoglobin 28.9 pg (27.0-33.0); Mean Corpuscular Volume 85.2 fL (80.0-98.0); Mean Platelet Volume 9.1 fL (9.4-12.3); Monocytes Absolute Auto 0.3 X10*3/uL (0.1-1.2); Monocytes Percent Auto 6.6 % (2-11); Neutrophils Absolute Auto 2.6 x10*3/uL (2.0-8.3); Neutrophils Percent Auto 56.7 % (45-73); Platelet Count 180 X10*3/uL (160-400); Red Blood Count 4.54 X10*6/uL (4.20-5.50); Red Cell Distribution Width 12.3 % (11.0-16.0); White Blood Count 4.6 X10*3/uL (4.8-10.8)
[2021-12-18 12:32] LABS: Prothrombin Time 11.6 SEC (10.0-13.1)
[2021-12-18 12:35] LABS: Partial Thromboplastin Time 36.1 SEC (26.0-36.4)
[2021-12-18 13:40] VITALS: BMI 29.0
[2021-12-18 15:00] VITALS: BP 108/59; PULSE 60; RESP 16; TEMP 36.2; O2SAT 96
[2021-12-18 15:15] VITALS: BP 106/68; PULSE 63; RESP 16; O2SAT 96
[2021-12-18] MEDS: oxyCODONE HCl Immed Release 5 MG TABLET PO (15:25)
[2021-12-18 15:30] VITALS: BP 111/69; PULSE 55; RESP 16; TEMP 36.2; O2SAT 97
[2021-12-18 15:45] VITALS: BP 127/62; PULSE 74; RESP 16; TEMP 36.3; O2SAT 99
[2021-12-18 16:00] VITALS: BP 130/74; PULSE 73; RESP 16; TEMP 36.2; O2SAT 99
[2021-12-18 16:30] VITALS: BP 126/79; PULSE 74; RESP 16; O2SAT 97
== END 2021-12-18 17:08 | disposition home or self-care (01) ==
PROVIDERS: PCP Internal Medicine; Visit Provider Radiology Diagnostic Radiology
DX: R74.8 Abnormal levels of other serum enzymes (principal); K73.8 Other chronic hepatitis, not elsewhere classified; E06.3 Autoimmune thyroiditis; J43.9 Emphysema, unspecified; E11.42 Type 2 diabetes mellitus with diabetic polyneuropathy; Z79.4 Long term (current) use of insulin; M79.7 Fibromyalgia; Z79.899 Other long term (current) drug therapy; Z88.8 Allergy status to other drugs, medicaments and biological substances; Z88.1 Allergy status to other antibiotic agents; Z91.041 Radiographic dye allergy status; Z87.891 Personal history of nicotine dependence
CPT/HCPCS: 36415; 47000; 76942; 85025; 85610; 85730; 88307; 88313; 88342; 99152; J2250; J3010

== ENCOUNTER 2021-12-24 12:19 | Outpatient (REF) | payer MEDICARE, MEDICAID, SELFPAY ==
--- NOTE | ~2021-12-24 | US_ITS ---
EXAMINATION: US THYROID CLINICAL INFORMATION: Nontoxic goiter, unspecified. COMPARISON: CT soft tissue neck without contrast 09/27/2019. TECHNIQUE: Linear transducer grayscale and color Doppler examination with attention to the region of the thyroid. FINDINGS: SIZE: Measurements of the thyroid lobes and nodules are given in sagittal, anteroposterior and transverse dimensions respectively. Right Thyroid Lobe: 4.2 x 1.7 x 1.2 cm, volume 4.5 mL. Parenchyma: The gland echotexture is heterogeneous. Thyroid vascularity is normal. Left Thyroid Lobe: 4.2 x 1.5 x 1.0 cm, volume 3.3 mL. Parenchyma: The gland echotexture is heterogeneous. Thyroid vascularity is normal. Isthmus: 0.2 cm in maximum AP dimension. Estimated total number of nodules greater than or equal to 1 cm: 0. Fur Joiner nodules are described as follows: 1. Location: Left inferior. Size: 0.4 x 0.3 x 0.4 cm, volume 0.03 mL. Nodule characteristics: Composition: Spongiform (0). Echogenicity: Anechoic (0). Shape: Not taller than wide (0). Margins: Smooth (0). Echogenic Foci: None (0). ACR TI-RADS total points: 0. ACR TI-RADS category: 1. 2. Location: Left inferior. Size: 0.5 x 0.3 x 0.4 cm, volume 0.03 mL. Nodule characteristics: Composition: Solid/almost completely solid (2). Echogenicity: Isoechoic (1). Shape: Not taller than wide (0). Margins: Ill-defined (0). Echogenic Foci: None (0). ACR TI-RADS total points: 3. ACR TI-RADS category: 3. NODES: No lymphadenopathy is seen in the tissue surrounding the thyroid gland. US/US thyroid IMPRESSION: Slightly heterogeneous thyroid gland with 2 small nonsuspicious subcentimeter nodules in the lower pole left lobe. ACR TI-RADS RECOMMENDATION REFERENCE: Ultrasound-guided fine-needle aspiration, followup ultrasound, no further follow up. * TR1 (0 point) and TR 2 (2 points): No FNA or follow up. * TR3 (3 points): FNA if more than or equal to 2.5 cm in maximum dimension, followup ultrasound in 1, 3 and 5 years if 1.5 to 2.4 cm in maximum dimension. * TR4 (4-6 points): FNA if more than or equal to 1.5 cm in maximum dimension, followup ultrasound in 1, 2, 3 and 5 years if 1 to 1.4 cm in maximum dimension. * TR5 (more than or equal to 7 points): FNA if more than or equal to 1 cm in maximum dimension, followup ultrasound every year for 5 years if 0.5 to 0.9 cm in maximum dimension. * TR3, TR4 or TR5 nodules that are below the size threshold for followup receive no follow up.
== END 2021-12-24 12:20 | disposition home or self-care (01) ==
LOC: HO.US 12:19
PROVIDERS: PCP Internal Medicine; Visit Provider Internal Medicine
DX: E04.9 Nontoxic goiter, unspecified (principal)
CPT/HCPCS: 76536

== ENCOUNTER → 2021-12-28 12:40 | Outpatient (BNVA) | payer MEDICARE, MEDICAID, SELFPAY | PROVIDERS: PCP Internal Medicine; Visit Provider Internal Medicine | DX: R52 Pain, unspecified (principal) | CPT/HCPCS: 99202 ==

== ENCOUNTER → 2021-12-29 15:17 | Outpatient (BNVA) | payer MEDICARE, MEDICAID, SELFPAY | PROVIDERS: PCP Internal Medicine; Referring Provider Internal Medicine; Visit Provider Internal Medicine | DX: Z12.11 Encounter for screening for malignant neoplasm of colon (principal); K75.4 Autoimmune hepatitis; R74.8 Abnormal levels of other serum enzymes; R13.10 Dysphagia, unspecified | CPT/HCPCS: 99212 ==

== ENCOUNTER → 2022-01-07 13:27 | Outpatient (BNVA) | payer MEDICARE, MEDICAID, SELFPAY | PROVIDERS: PCP Internal Medicine; Visit Provider Internal Medicine Pulmonary Disease | DX: R06.00 Dyspnea, unspecified (principal); J43.9 Emphysema, unspecified | CPT/HCPCS: 99212 ==

== ENCOUNTER → 2022-01-12 14:20 | Outpatient (BNVA) | payer MEDICARE, MEDICAID, SELFPAY | PROVIDERS: PCP Internal Medicine; Visit Provider Nurse Practitioner Family | DX: M06.00 Rheumatoid arthritis without rheumatoid factor, unspecified site (principal); M54.50 Low back pain, unspecified; M19.042 Primary osteoarthritis, left hand; K75.4 Autoimmune hepatitis; E11.65 Type 2 diabetes mellitus with hyperglycemia; E11.42 Type 2 diabetes mellitus with diabetic polyneuropathy; Z79.4 Long term (current) use of insulin; Z79.52 Long term (current) use of systemic steroids | CPT/HCPCS: 99212 ==

== ENCOUNTER 2022-01-26 11:15 | Outpatient (REF) | payer MEDICARE, MEDICAID, SELFPAY ==
--- NOTE | ~2022-01-26 | US_ITS ---
EXAMINATION: US ABDOMEN COMPLETE CLINICAL INFORMATION: Autoimmune hepatitis. COMPARISON: CT abdomen pelvis 11/11/2021. Ultrasound abdomen limited 08/13/2021. X-ray abdomen 05/09/2021. Ultrasound abdomen complete 10/30/2020. TECHNIQUE: Real-time imaging of the abdominal viscera. FINDINGS: PANCREAS: Normal. ABDOMINAL AORTA: The proximal, mid, and distal segments are normal in caliber. INFERIOR VENA CAVA: Visualized portions are normal. LIVER: The right hepatic lobe measures 18.4 cm in length. The liver contour is normal. Parenchymal echogenicity is normal. No focal hepatic lesion. There is no intrahepatic biliary duct dilatation seen. GALLBLADDER: Surgically absent. COMMON BILE DUCT: Normal in caliber measuring 1.3 cm in diameter. RIGHT KIDNEY: Normal. No hydronephrosis. No renal calculi or focal parenchymal lesions. The kidney measures 10.5 cm in maximum dimension. LEFT KIDNEY: Normal. No hydronephrosis. No renal calculi or focal parenchymal lesions. The kidney measures 10.3 cm in maximum dimension. SPLEEN: The spleen measures 12.8 cm in maximum dimension. The spleen is enlarged. FREE FLUID: None. US/US abdomen complete IMPRESSION: Right hepatic lobe enlargement. No focal lesion seen. Borderline splenomegaly. No focal lesion seen. Rest of the abdominal ultrasound is unremarkable.
== END 2022-01-26 11:16 | disposition home or self-care (01) ==
LOC: HO.US 11:15
PROVIDERS: Visit Provider Nurse Practitioner Family
DX: K75.4 Autoimmune hepatitis (principal)
CPT/HCPCS: 76700

== ENCOUNTER 2022-01-29 16:02 | Outpatient (REF) | payer MEDICARE, MEDICAID, SELFPAY ==
[2022-01-29 17:07] LABS: Alanine Aminotransferase 17 U/L (0-31); Albumin Level 4.1 g/dL (3.5-5.0); Alkaline Phosphatase 84 U/L (39-117); Aspartate Amino Transferase 9 U/L (5-31); Bilirubin Direct 0.2 mg/dL (0.0-0.5); Bilirubin Total 0.5 mg/dL (0.0-1.0); Total Protein 7.8 g/dL (6.5-8.0)
[2022-02-01 06:02] LABS: TS Negative Control Passed; TS Panel A 0; TS Panel B 0; TS Positive Control Passed; TSpotTB Negative (Negative)
[2022-02-02 14:47] LABS: Immunoglobulin G 1924 mg/dL (600-1640)
[2022-02-04 13:51] LABS: TPMT Activity 15
== END 2022-01-29 16:03 | disposition home or self-care (01) ==
LOC: HO.LAB 16:02
PROVIDERS: PCP Internal Medicine; Visit Provider Internal Medicine
DX: Z11.1 Encounter for screening for respiratory tuberculosis (principal); K75.4 Autoimmune hepatitis; R74.8 Abnormal levels of other serum enzymes; E11.9 Type 2 diabetes mellitus without complications; Z79.4 Long term (current) use of insulin; Z79.52 Long term (current) use of systemic steroids; Z79.899 Other long term (current) drug therapy
CPT/HCPCS: 36415; 80076; 82657; 82784; 86481; 99212

== ENCOUNTER 2022-02-05 14:38 | Outpatient (REF) | payer MEDICARE, MEDICAID, SELFPAY ==
--- NOTE | ~2022-02-05 | MM_ITS ---
EXAMINATION: BONE DENSITOMETRY CLINICAL INDICATION: Long-term (current) use of systemic steroids. COMPARISON: Baseline BD dated 05/05/2012. TECHNIQUE: Using a MiniLuxe DXA System (software version: 13.1) manufactured by [employer], dual-energy x-ray absorptiometry was performed of the lumbar spine and left hip. The images are of good technical quality. Summary results are attached. FINDINGS: AP SPINE L1-L4: Current: BMD 0.908 g/cm2, Z-score -2.0, T-score -2.3, osteopenia, 7.3% decrease from baseline (<5% change is not significant). Baseline: BMD 0.979 g/cm2. LEFT FEMUR, NECK: Current: BMD 0.908 g/cm2, Z-score -0.3, T-score -0.9, normal. Baseline: BMD 1.002 g/cm2. LEFT FEMUR, TOTAL: Current: BMD 0.976 g/cm2, Z-score 0.0, T-score -0.3, normal, 3.1% decrease from baseline (<5% change is not significant). Baseline: BMD 1.007 g/cm2. IDENTIFIED RISK FACTORS: Early menopause, glucocorticoids (chronic), height loss, hysterectomy, rheumatoid arthritis, secondary osteoporosis, left oophorectomy. HISTORY OF FRACTURE: None listed. MEDICATIONS: Vitamin D. MM/XR DEXA axial skeleton IMPRESSION: 1. DIAGNOSIS: Osteopenia based on the lowest T-score value of -2.3 in the lumbar spine applying World Health Organization criteria. 2. 10-YEAR FRACTURE RISK PREDICTION, FRAX: Major osteoporotic fracture (clinical spine, forearm, hip or shoulder) 6.8%. Hip fracture 0.4%. 3. Treatment Recommendations: NOF guidelines recommend consideration for treatment in postmenopausal women and men age 50 and older presenting with the following: -A hip or vertebral (clinical or morphometric) fracture. -T-score less than or equal to -2.5 at the femoral neck or spine after appropriate evaluation to exclude secondary causes. -Low bone mass at the hip or spine and a 10-year fracture probability by FRAX of greater than or equal to 3% for hip fracture or greater than or equal to 20% for major osteoporotic fracture based on the [place] adapted WHO algorithm. 4. Other Recommendations: All treatment decisions require clinical judgment and consideration of individual patient factors, including patient preferences, comorbidities, previous drug use, risk factors not captured in the FRAX model (e.g. frailty, falls, vitamin D deficiency, increased bone turnover, interval significant decline in bone density) and possible under or overestimation of fracture risk by FRAX. Additional medical evaluation for secondary cause of low bone mineral density may be appropriate. FUTURE SCAN RECOMMENDATION: People with diagnosed cases of osteoporosis or at high risk for fracture should have regular bone mineral density tests. For patients eligible for Medicare, routine testing is allowed once every 2 years. The testing frequency can be increased to one year for patients who have rapidly progressing disease, those who are receiving or discontinuing medical therapy to restore bone mass, or have additional risk factors.
== END 2022-02-05 14:39 | disposition home or self-care (01) ==
LOC: HO.MAMMO 14:38
PROVIDERS: PCP Internal Medicine; Visit Provider Internal Medicine
DX: Z78.0 Asymptomatic menopausal state (principal); M06.9 Rheumatoid arthritis, unspecified; Z90.710 Acquired absence of both cervix and uterus; Z90.721 Acquired absence of ovaries, unilateral; Z79.52 Long term (current) use of systemic steroids
CPT/HCPCS: 77080

== ENCOUNTER 2022-02-15 10:04 | Outpatient (REF) | payer MEDICARE, MEDICAID, SELFPAY ==
[2022-02-15 10:53] LABS: Hematocrit 39.7 % (37.0-47.0); Mean Corpuscular HGB Conc 32.7 g/dl (31.0-35.0); Mean Corpuscular Hemoglobin 28.8 pg (27.0-33.0); Mean Corpuscular Volume 87.8 fL (80.0-98.0); Mean Platelet Volume 8.8 fL (9.4-12.3); Platelet Count 216 X10*3/uL (160-400); Red Blood Count 4.52 X10*6/uL (4.20-5.50); Red Cell Distribution Width 12.9 % (11.0-16.0); White Blood Count 9.7 X10*3/uL (4.8-10.8)
[2022-02-15 11:33] LABS: Alanine Aminotransferase 19 U/L (0-31); Aspartate Amino Transferase 11 U/L (5-31)
[2022-02-15 12:03] LABS: Alanine Aminotransferase 19 U/L (0-31); Albumin Level 3.8 g/dL (3.5-5.0); Alkaline Phosphatase 63 U/L (39-117); Anion Gap 9 (12-20); Aspartate Amino Transferase 10 U/L (5-31); Bilirubin Total 0.4 mg/dL (0.0-1.0); Blood Urea Nitrogen 22 mg/dL (9-16); Calcium 9.3 mg/dL (8.4-10.2); Carbon Dioxide 29 mmol/L (22-29); Chloride 103 mmol/L (96-108); Cholesterol 225 mg/dL; Estimated Glomerular Filt Rate > 60; Glucose Fasting 190 mg/dL (60-99); HDL Cholesterol 94 mg/dL; LDL Cholesterol Calculated 118 mg/dl; Potassium 4.1 mmol/L (3.3-5.1); Sodium 137 mmol/L (135-145); Thyroid Stimulating Hormone 7.59 uIU/mL (0.32-4.0); Total Protein 6.9 g/dL (6.5-8.0); Triglycerides 67 mg/dL; Vitamin D 25-OH Total 17.3 ng/mL (>30)
[2022-02-15 13:10] LABS: Creatinine Urine 150.59 mg/dL; Microalbum/Creatinine Ratio Ur 10.6 ug/mg cr
[2022-02-17 14:47] LABS: Immunoglobulin G 1587 mg/dL (600-1640)
== END 2022-02-15 10:05 | disposition home or self-care (01) ==
LOC: HO.LAB 10:04
PROVIDERS: PCP Internal Medicine; Visit Provider Internal Medicine
DX: E78.5 Hyperlipidemia, unspecified (principal); E55.9 Vitamin D deficiency, unspecified; E06.3 Autoimmune thyroiditis; K75.4 Autoimmune hepatitis; E11.65 Type 2 diabetes mellitus with hyperglycemia
CPT/HCPCS: 36415; 80053; 80061; 82043; 82306; 82784; 84443; 84450; 84460; 85027

== ENCOUNTER → 2022-02-26 13:54 | Outpatient (BNVA) | payer MEDICARE, MEDICAID, SELFPAY | PROVIDERS: PCP Internal Medicine; Visit Provider Nurse Practitioner Family | DX: K75.4 Autoimmune hepatitis (principal); B37.0 Candidal stomatitis; E11.9 Type 2 diabetes mellitus without complications; M06.00 Rheumatoid arthritis without rheumatoid factor, unspecified site; S80.11XA Contusion of right lower leg, initial encounter; M54.50 Low back pain, unspecified; M19.042 Primary osteoarthritis, left hand; Z79.4 Long term (current) use of insulin; Z79.52 Long term (current) use of systemic steroids; Z79.899 Other long term (current) drug therapy | CPT/HCPCS: 99212 ==

== ENCOUNTER 2022-03-04 14:25 | Outpatient (REF) | payer MEDICARE, MEDICAID, SELFPAY ==
[2022-03-04 15:11] LABS: Hematocrit 38.5 % (37.0-47.0); Hemoglobin 13.2 g/dl (12.0-16.0); Mean Corpuscular HGB Conc 34.3 g/dl (31.0-35.0); Mean Corpuscular Hemoglobin 29.6 pg (27.0-33.0); Mean Corpuscular Volume 86.3 fL (80.0-98.0); Platelet Count 276 X10*3/uL (160-400); Red Blood Count 4.46 X10*6/uL (4.20-5.50); Red Cell Distribution Width 13.1 % (11.0-16.0); White Blood Count 5.8 X10*3/uL (4.8-10.8)
[2022-03-04 16:03] LABS: Alanine Aminotransferase 29 U/L (0-31); Albumin Level 4.3 g/dL (3.5-5.0); Alkaline Phosphatase 85 U/L (39-117); Anion Gap 9 (12-20); Aspartate Amino Transferase 18 U/L (5-31); Bilirubin Total 0.9 mg/dL (0.0-1.0); Blood Urea Nitrogen 19 mg/dL (9-16); Calcium 9.7 mg/dL (8.4-10.2); Carbon Dioxide 29 mmol/L (22-29); Chloride 103 mmol/L (96-108); Estimated Glomerular Filt Rate > 60; Glucose Random 268 mg/dL (60-115); Sodium 137 mmol/L (135-145); Total Protein 7.5 g/dL (6.5-8.0)
== END 2022-03-04 14:26 | disposition home or self-care (01) ==
LOC: HO.LAB 14:25
PROVIDERS: PCP Internal Medicine; Visit Provider Internal Medicine
DX: K75.4 Autoimmune hepatitis (principal)
CPT/HCPCS: 36415; 80053; 85027

== ENCOUNTER → 2022-03-05 13:20 | Outpatient (BNVA) | payer MEDICARE, MEDICAID, SELFPAY | PROVIDERS: PCP Internal Medicine; Visit Provider Internal Medicine Pulmonary Disease | DX: R06.00 Dyspnea, unspecified (principal); J43.9 Emphysema, unspecified | CPT/HCPCS: 99212 ==

== ENCOUNTER 2022-03-25 09:50 | Day surgery (SDC) | payer MEDICARE, MEDICAID, SELFPAY ==
[2022-03-25 10:10] VITALS: BMI 28.5
[2022-03-25 10:30] VITALS: BP 107/64; PULSE 57; RESP 16; TEMP 35.8; O2SAT 97
[2022-03-25 10:38] LABS: Glucose, Whole Blood 211 mg/dL (60-115)
--- NOTE | 2022-03-25 10:47 | HO.ANESPROP2 ---
HPI - Anesthesia Eval Consult details Narrative: 56 F with IDDM for EGD/colonoscopy [facility] Active Problems Active Problems: All Active Problems (Updated 03/04/22 @ 15:42 by Becca Newberry MD) De Quervain's disease (radial styloid tenosynovitis) (Acute) Rotator cuff tendonitis (Acute) Left hand pain (Acute) Left wrist pain (Acute) Pulmonary emphysema (Acute) Dyspnea on exertion (Acute) Seronegative rheumatoid arthritis (Acute) Encounter for screening colonoscopy (Acute) Low back pain (Acute) Vaginal irritation (Acute) Yeast infection involving the vagina and surrounding area (Acute) Abscess (Acute) Abdominal pain (Acute) Goiter (Acute) Palpitations (Acute) Dysphagia (Acute) Elevated liver enzymes (Acute) Generalized pain (Acute) Autoimmune hepatitis (Acute) Autoimmune thyroiditis (Acute) Long-term current use of steroids (Acute) Oral thrush (Acute) Hyperlipidemia LDL goal <70 (Acute) Osteoarthritis of hand, left (Acute) Chronic constipation (Acute) Hypoactive bowel sounds (Acute) Hand numbness (Acute) Autoimmune thyroiditis (Acute) Abdominal pain (Acute) Inflammatory arthritis (Acute) Breast mass, right (Acute) Lung cyst (Acute) Bilateral hand numbness (Acute) Neck pain (Acute) Dyslipidemia (Acute) Post-surgical hypothyroidism (Acute) Diabetic polyneuropathy associated with type 2 diabetes mellitus (Acute) 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 (Acute) Chronic idiopathic constipation (Acute) Low vitamin D level (Acute) Weight loss (Acute) GERD (gastroesophageal reflux disease) (Acute) Diabetes type 2, uncontrolled (Acute) Fibromyalgia (Acute) Insomnia (Acute) Past Medical History Medical History Abdominal pain Autoimmune thyroiditis Bilateral hand numbness Breast mass, right Chronic constipation Chronic idiopathic constipation Diabetes type 2, uncontrolled Diabetic polyneuropathy associated with type 2 diabetes mellitus Dyslipidemia Fibromyalgia GERD (gastroesophageal reflux disease) Hand numbness Hypoactive bowel sounds Inflammatory arthritis Insomnia 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 Mother No problems noted. Maternal Aunt Breast cancer Other Mental health problem Substance abuse Family history of problems with anesthesia: No Surgical History Surgical History History of esophagogastroduodenoscopy (EGD) History of hysterectomy History of liver biopsy History of thyroidectomy, total Hx of colonoscopy (1998) Hx of removal of cyst History of Problems with Anesthesia: No Social History Social History Household Members: None Housing: House Alcohol intake: unknown Patient Tobacco Use Status: Former Tobacco user Quit Date: 10+ yrs ago Cigarettes Per Day: 7 Years Smoked: 6 e-Cigarette/Vaping Use: Never Used Second Hand Smoke Exposure: No Use of substances other than those prescribed or required for medical reasons: No Are you DNR?: No Advance Directives: Yes Advance Directives on File: Yes Advance Directives Date on File: 07/15/20 service: No Current occupational status: disabled Cognitive needs: No Hearing needs: No Vision needs: No Meds Allergies Allergy/AdvReac Type Severity Reaction Status Date / Time gadobutrol [From GADAVIST] Allergy Severe ANAPHYLAXIS Verified 03/18/22 12:21 hydroxychloroquine Allergy Intermediate rash,facial Verified 03/18/22 12:21 [Plaquenil] swelling Iodinated Contrast Media Allergy Intermediate DIFF Verified 03/18/22 12:21 [CONTRAST, IV] BREATHING levofloxacin [From LEVAQUIN] Allergy Intermediate ITCHY RASH Verified 03/18/22 12:21 pregabalin [From LYRICA] Allergy Intermediate STOMACH Verified 03/18/22 12:21 UPSET, Swelling tramadol Allergy Intermediate abdominal Verified 03/18/22 12:21 pain Statins Support Allergy Intermediate transaminit Uncoded 03/18/22 12:21 is MRI contrast (gadolinium) AdvReac Unknown anaphylaxis Uncoded 03/18/22 12:21 Active Medications: Current Medications Albuterol Sulfate (Albuterol Sulfate (0.083%) 2.5 Mg/3 Ml Vial.Neb) 2.5 mg INHALE ONCE PRN PRN Reason: Shortness of Breath/Wheezing Lactated Ringer's (Lr) 1,000 mls @ 50 mls/hr IVCONT .Q20H [facility] Home Medications Medication Instructions Recorded Confirmed Last Taken Type cholecalciferol (vitamin D3) 50 50 mcg PO DAILY 01/12/22 03/04/22 Unknown History mcg (2,000 unit) capsule ondansetron HCl 8 mg tablet 8 mg PO DAILY PRN 01/12/22 03/04/22 Unknown History bisacodyl 5 mg tablet,delayed 5 mg PO BEDTIME 03/04/22 03/04/22 Unknown History release insulin degludec 200 unit/mL (3 110 unit subcut BEDTIME 03/04/22 Unknown History mL) subcutaneous pen (Tresiba FlexTouch U-200 insulin) Exam Exam Date and Time: March 25, 2022 1047 Height,Weight and Vital Signs: Height 5 ft 7 in Weight 182 lb Last Vital Signs Temp 96.5 F L 03/25/22 10:30 Pulse 57 03/25/22 10:30 Resp 16 03/25/22 10:30 BP 107/64 03/25/22 10:30 Pulse Ox 97 03/25/22 10:30 O2 Del Method 03/25/22 10:30 Pertinent Lab Results Pertinent Lab Results: Laboratory Tests 03/25/22 10:35 POC Glucose 211 H Airway Mallampati Class: II TM Dist: >3cm Neck ROM: Full Partial: Lower Loose/Missing/Broken Teeth: Yes Assessment and Plan Assessment Anesthesia Assessment: Anesthesia Plan Discussed and Chart Reviewed Final Anesthetic Review Family History of Problems with Anesthesia: No History of Problems with Anesthesia: No NPO: Yes ASA Class: III Final Preanesthetic Review: No Changes in Pt Med Stat, Meds/Allgs Chart Reviewed, Consent Obtained/Reviewed and Anes Risks/Benef Reviewed Patient Risk: Intermediate Procedure Risk: Low Anesthetic Plan Anesthetic Plan: MAC: Disposition: Standard PACU
--- NOTE | 2022-03-25 10:52 | MHC.SHP ---
Pre-Procedural Eval Section A Date of Service: 03/25/22 The History & Physical has been completed within 30 days and I have reviewed it.: Yes Section B Chief Complaint: screening,dysphagia Allergies: Allergies Allergy/AdvReac Type Severity Reaction Status Date / Time gadobutrol [From GADAVIST] Allergy Severe ANAPHYLAXIS Verified 03/18/22 12:21 hydroxychloroquine Allergy Intermediate rash,facial Verified 03/18/22 12:21 [Plaquenil] swelling Iodinated Contrast Media Allergy Intermediate DIFF Verified 03/18/22 12:21 [CONTRAST, IV] BREATHING levofloxacin [From LEVAQUIN] Allergy Intermediate ITCHY RASH Verified 03/18/22 12:21 pregabalin [From LYRICA] Allergy Intermediate STOMACH Verified 03/18/22 12:21 UPSET, Swelling tramadol Allergy Intermediate abdominal Verified 03/18/22 12:21 pain Statins Support Allergy Intermediate transaminit Uncoded 03/18/22 12:21 is MRI contrast (gadolinium) AdvReac Unknown anaphylaxis Uncoded 03/18/22 12:21 Plan Diagnosis/Plan: Unchanged I have reviewed the history and physical and performed a pertinent physical examination on my patient. No changes have occurred unless specified. Time Spent With Patient Time: Total time managing care of this patient today ____ minutes.
--- NOTE | 2022-03-25 11:05 | P.OP_ITS ---
Operative Note Operative Note Date of Service: 03/25/22 Narrative: Procedure:?Esophagogastroduodenoscopy and Colonoscopy Indication:?Dysphagia, screening Endoscopist:?Cindy Zheng MD Anesthesia Provider:?Dr Brigido Oropeza Anesthesia type:?MAC Instrument:?Olympus GIF-H190 and PCF-H190L ?? EGD Procedure:?? The procedure, indications, preparation and potential complications were reviewed with the patient, who indicated understanding and gave written informed consent to proceed. A physical exam was performed. The endoscope was introduced through the mouth, and advanced to the third part of duodenum. The mucosa was carefully examined on slow withdrawal of the endoscope. The patient tolerated the procedure well. There were no immediate complications.? ? EGD Findings:? * Esophagus:? Tortuous esophagus, but otherwise normal mucosa. Z line noted at 40 cm. * Stomach:?Diffuse congestion and erythema in mosaic pattern was noted in the cardia and fundus. Random cold forceps gastric biopsies were taken to rule out H Pylori infection.? * Duodenum:? Fissuring was noted in duodenal bulb and second portion of the duodenum suspicious for celiac disease. Cold forceps biopsies were taken from duodenal bulb and second portion of the duodenum to rule out celiac sprue. Colonoscopy Procedure:? The patient was then turned for the colonoscopy. A digital rectal exam was performed which was abnormal due to findings of external hemorrhoids. The colonoscope was then inserted through the anus and advanced through the colon to the cecum at 85 cm. The appendiceal orifice and ileocecal valve was identified.? Mucosa was carefully examined under high definition white light as the instrument was slowly withdrawn in a retrograde panoramic fashion. Retroflexion was performed in rectum. The procedure was not difficult. There were no immediate obvious complications. The quality of the prep was BBPS: 1+1+2 = inadequate Withdrawal time 7 minutes. Limitations: Poor prep Colonoscopy findings: Mucosa: Limited visualisation of right colon and transverse colon due to solid and semi solid stool. Protruding lesions: * Small external hemorrhoids without stigmata of recent bleeding.? Impression:? * Tortuous esophagus, otherwise normal mucosa * ?? Portal hypertensive gastropathy vs H pylori gastritis (biopsy) * Abnormal duodenal mucosa (biopsy) * Poor prep colon. Exam inadequate for CRC screening. * External hemorrhoids Recommendations:?? * Repeat colonoscopy will be set up within a year due to poor prep. * Follow biopsy results. Our office will call or send a letter with results within 7-10 days.? * If H pylori +, patient will be prescribed eradication therapy followed by test of cure. * Avoid NSAIDs. Above has been reviewed with the patient. Relevant educational hand outs were provided at discharge.?
[2022-03-25 11:38] VITALS: BP 99/49; PULSE 60; RESP 16; TEMP 36.1; O2SAT 98
[2022-03-25 11:53] VITALS: BP 119/54; PULSE 55; RESP 18; O2SAT 99
[2022-03-25 12:01] VITALS: BP 108/61; PULSE 56; RESP 14; TEMP 36.1; O2SAT 98
== END 2022-03-25 12:31 | disposition home or self-care (01) ==
PROVIDERS: PCP Internal Medicine; Visit Provider Internal Medicine
PROC: (CPT 43239; principal; 2022-03-25 11:10)
DX: Z12.11 Encounter for screening for malignant neoplasm of colon (principal); K64.4 Residual hemorrhoidal skin tags; R13.10 Dysphagia, unspecified; K29.50 Unspecified chronic gastritis without bleeding; B96.81 Helicobacter pylori [H. pylori] as the cause of diseases classified elsewhere; K22.89 Other specified disease of esophagus; K31.89 Other diseases of stomach and duodenum; K21.9 Gastro-esophageal reflux disease without esophagitis; M79.7 Fibromyalgia; K75.4 Autoimmune hepatitis; K74.60 Unspecified cirrhosis of liver; E11.42 Type 2 diabetes mellitus with diabetic polyneuropathy; E78.5 Hyperlipidemia, unspecified; E55.9 Vitamin D deficiency, unspecified; B37.0 Candidal stomatitis; Z79.52 Long term (current) use of systemic steroids; Z79.4 Long term (current) use of insulin; Z88.8 Allergy status to other drugs, medicaments and biological substances; Z88.1 Allergy status to other antibiotic agents; Z91.041 Radiographic dye allergy status; Z87.891 Personal history of nicotine dependence
CPT/HCPCS: 43239; G0121; 82947; 88305; 88342; J2250

== ENCOUNTER 2022-04-01 13:18 | Outpatient (REF) | payer MEDICARE, MEDICAID, SELFPAY ==
[2022-04-01 14:31] LABS: Hematocrit 40.9 % (37.0-47.0); Hemoglobin 13.4 g/dl (12.0-16.0); Mean Corpuscular HGB Conc 32.8 g/dl (31.0-35.0); Mean Corpuscular Hemoglobin 29.4 pg (27.0-33.0); Mean Corpuscular Volume 89.7 fL (80.0-98.0); Mean Platelet Volume 9.3 fL (9.4-12.3); Platelet Count 230 X10*3/uL (160-400); Red Blood Count 4.56 X10*6/uL (4.20-5.50); Red Cell Distribution Width 12.8 % (11.0-16.0); White Blood Count 8.2 X10*3/uL (4.8-10.8)
[2022-04-01 15:14] LABS: Alanine Aminotransferase 17 U/L (0-31); Albumin Level 4.2 g/dL (3.5-5.0); Alkaline Phosphatase 80 U/L (39-117); Aspartate Amino Transferase 12 U/L (5-31); Bilirubin Direct 0.2 mg/dL (0.0-0.5); Bilirubin Total 0.7 mg/dL (0.0-1.0); Total Protein 7.7 g/dL (6.5-8.0)
[2022-04-01 15:25] LABS: Thyroid Stimulating Hormone 0.44 uIU/mL (0.32-4.0)
[2022-04-03 15:33] LABS: Immunoglobulin G 1828 mg/dL (600-1640)
== END 2022-04-01 13:19 | disposition home or self-care (01) ==
LOC: HO.LAB 13:18
PROVIDERS: PCP Internal Medicine; Visit Provider Internal Medicine
DX: E06.3 Autoimmune thyroiditis (principal); K75.4 Autoimmune hepatitis
CPT/HCPCS: 36415; 80076; 82784; 84443; 85027

== ENCOUNTER → 2022-04-07 12:15 | Outpatient (BNVA) | payer MEDICARE, MEDICAID, SELFPAY | PROVIDERS: PCP Internal Medicine; Referring Provider Internal Medicine; Visit Provider Internal Medicine | DX: K75.4 Autoimmune hepatitis (principal); A04.8 Other specified bacterial intestinal infections | CPT/HCPCS: 99212 ==

== ENCOUNTER 2022-04-09 15:53 | Outpatient (REF) | payer MEDICARE, MEDICAID, SELFPAY ==
[2022-04-09 16:57] LABS: Estimated Average Glucose 217 mg/dL; Hemoglobin A1c % 9.2 %
[2022-04-09 17:08] LABS: Hematocrit 39.6 % (37.0-47.0); Hemoglobin 12.9 g/dl (12.0-16.0); Mean Corpuscular HGB Conc 32.6 g/dl (31.0-35.0); Mean Corpuscular Hemoglobin 29.5 pg (27.0-33.0); Mean Corpuscular Volume 90.4 fL (80.0-98.0); Mean Platelet Volume 9.2 fL (9.4-12.3); Platelet Count 252 X10*3/uL (160-400); Red Blood Count 4.38 X10*6/uL (4.20-5.50); Red Cell Distribution Width 12.1 % (11.0-16.0); White Blood Count 5.2 X10*3/uL (4.8-10.8)
[2022-04-09 17:13] LABS: Alanine Aminotransferase 45 U/L (0-31); Albumin Level 3.9 g/dL (3.5-5.0); Alkaline Phosphatase 87 U/L (39-117); Aspartate Amino Transferase 29 U/L (5-31); Bilirubin Direct 0.4 mg/dL (0.0-0.5); Bilirubin Total 0.9 mg/dL (0.0-1.0); Lipase 17 U/L (8-78)
== END 2022-04-09 15:54 | disposition home or self-care (01) ==
LOC: HO.LAB 15:53
PROVIDERS: PCP Internal Medicine; Visit Provider Internal Medicine
DX: K75.4 Autoimmune hepatitis (principal); R10.9 Unspecified abdominal pain; R11.10 Vomiting, unspecified
CPT/HCPCS: 36415; 80076; 83036; 83690; 85027

== ENCOUNTER 2022-04-19 12:08 | Outpatient (REF) | payer MEDICARE, MEDICAID, SELFPAY ==
[2022-04-19 12:45] LABS: Hematocrit 37.9 % (37.0-47.0); Hemoglobin 12.6 g/dl (12.0-16.0); Mean Corpuscular HGB Conc 33.2 g/dl (31.0-35.0); Mean Corpuscular Hemoglobin 30.3 pg (27.0-33.0); Mean Corpuscular Volume 91.1 fL (80.0-98.0); Mean Platelet Volume 9.1 fL (9.4-12.3); Platelet Count 199 X10*3/uL (160-400); Red Blood Count 4.16 X10*6/uL (4.20-5.50); Red Cell Distribution Width 12.1 % (11.0-16.0)
[2022-04-19 13:38] LABS: Alanine Aminotransferase 17 U/L (0-31); Albumin Level 3.9 g/dL (3.5-5.0); Alkaline Phosphatase 67 U/L (39-117); Aspartate Amino Transferase 12 U/L (5-31); Bilirubin Direct 0.2 mg/dL (0.0-0.5); Bilirubin Total 0.6 mg/dL (0.0-1.0)
== END 2022-04-19 12:09 | disposition home or self-care (01) ==
LOC: HO.LAB 12:08
PROVIDERS: PCP Internal Medicine; Visit Provider Internal Medicine
DX: K75.4 Autoimmune hepatitis (principal)
CPT/HCPCS: 36415; 80076; 85027

== ENCOUNTER → 2022-04-20 13:18 | Outpatient (BNVA) | payer MEDICARE, MEDICAID, SELFPAY | PROVIDERS: PCP Internal Medicine; Visit Provider Internal Medicine | DX: K75.4 Autoimmune hepatitis (principal); A04.8 Other specified bacterial intestinal infections; Z79.52 Long term (current) use of systemic steroids | CPT/HCPCS: 99212 ==

== ENCOUNTER 2022-05-12 14:11 | Outpatient (REF) | payer MEDICARE, MEDICAID, SELFPAY ==
--- NOTE | ~2022-05-12 | MM_ITS ---
EXAMINATION: MM SCREENING DIGITAL BREAST TOMOSYNTHESIS, BILATERAL CLINICAL INFORMATION: Screening. Asymptomatic. The lifetime risk of breast cancer based on the Tyrer-Cuzick Model is 5%. COMPARISON: Mammography: 05/08/2021, 10/08/2020, 03/20/2020, 02/28/2020 TECHNIQUE: Digital breast tomosynthesis is performed in both the craniocaudal and mediolateral oblique views along with computer-aided detection (CAD). Synthesized 2D images are generated from the tomosynthesis. FINDINGS: There are scattered areas of fibroglandular density (ACR BI-RADS breast composition Category b). There are no significant masses, abnormal calcifications, or other abnormalities. Parenchymal pattern is similar to prior studies. There is no developing density or architectural abnormality. The axilla and skin contours are unremarkable. No significant changes. MM/MM tomosynthesis screening BI IMPRESSION: No mammographic evidence of malignancy. ASSESSMENT: BI-RADS 1: Negative RECOMMENDATION: Routine annual mammography screening. This patient's information was entered into a reminder system with a target due date for their next mammogram.
[2022-05-12 17:31] LABS: Hematocrit 39.7 % (37.0-47.0); Hemoglobin 13.1 g/dl (12.0-16.0); Mean Corpuscular Hemoglobin 29.1 pg (27.0-33.0); Mean Corpuscular Volume 88.2 fL (80.0-98.0); Mean Platelet Volume 9.4 fL (9.4-12.3); Platelet Count 275 X10*3/uL (160-400); Red Cell Distribution Width 11.5 % (11.0-16.0); White Blood Count 8.8 X10*3/uL (4.8-10.8)
[2022-05-12 18:03] LABS: Alanine Aminotransferase 18 U/L (0-31); Albumin Level 4.3 g/dL (3.5-5.0); Alkaline Phosphatase 81 U/L (39-117); Aspartate Amino Transferase 11 U/L (5-31); Bilirubin Direct 0.3 mg/dL (0.0-0.5); Total Protein 7.5 g/dL (6.5-8.0)
[2022-05-14 14:39] LABS: Immunoglobulin G 1625 mg/dL (600-1640)
== END 2022-05-12 14:12 | disposition home or self-care (01) ==
LOC: HO.LAB 14:11
PROVIDERS: PCP Internal Medicine; Visit Provider Internal Medicine
DX: Z12.31 Encounter for screening mammogram for malignant neoplasm of breast (principal); K75.4 Autoimmune hepatitis; R74.8 Abnormal levels of other serum enzymes
CPT/HCPCS: 36415; 77063; 77067; 80076; 82784; 85027

== ENCOUNTER → 2022-05-21 12:57 | Outpatient (BNVA) | payer MEDICARE, MEDICAID, SELFPAY | PROVIDERS: PCP Internal Medicine; Visit Provider Internal Medicine | DX: K75.4 Autoimmune hepatitis (principal); Z79.52 Long term (current) use of systemic steroids | CPT/HCPCS: 99212 ==

== ENCOUNTER → 2022-05-25 13:50 | Outpatient (BNVA) | payer MEDICARE, MEDICAID, SELFPAY | PROVIDERS: PCP Internal Medicine; Visit Provider Nurse Practitioner Family | DX: M06.00 Rheumatoid arthritis without rheumatoid factor, unspecified site (principal); M19.042 Primary osteoarthritis, left hand; M54.50 Low back pain, unspecified; K75.4 Autoimmune hepatitis | CPT/HCPCS: 99212 ==

== ENCOUNTER 2022-06-07 13:51 | Outpatient (REF) | payer MEDICARE, MEDICAID, SELFPAY ==
[2022-06-07 14:33] LABS: Hematocrit 40.9 % (37.0-47.0); Hemoglobin 13.6 g/dl (12.0-16.0); Mean Corpuscular HGB Conc 33.3 g/dl (31.0-35.0); Mean Corpuscular Hemoglobin 28.8 pg (27.0-33.0); Mean Corpuscular Volume 86.7 fL (80.0-98.0); Mean Platelet Volume 9.6 fL (9.4-12.3); Platelet Count 276 X10*3/uL (160-400); Red Blood Count 4.72 X10*6/uL (4.20-5.50); Red Cell Distribution Width 11.8 % (11.0-16.0); White Blood Count 7.6 X10*3/uL (4.8-10.8)
[2022-06-07 15:18] LABS: Erythrocyte Sedimentation Rate 14 MM/HR (0-20)
[2022-06-07 21:03] LABS: Alanine Aminotransferase 14 U/L (0-31); Albumin Level 4.2 g/dL (3.5-5.0); Alkaline Phosphatase 94 U/L (39-117); Anion Gap 13 (12-20); Aspartate Amino Transferase 9 U/L (5-31); Bilirubin Total 0.7 mg/dL (0.0-1.0); Blood Urea Nitrogen 14 mg/dL (9-16); C Reactive Protein 0.25 mg/dL (< or = 0.50); Calcium 9.8 mg/dL (8.4-10.2); Carbon Dioxide 27 mmol/L (22-29); Chloride 98 mmol/L (96-108); Estimated Glomerular Filt Rate > 60; Glucose Random 465 mg/dL (60-115); Potassium 4.4 mmol/L (3.3-5.1); Sodium 134 mmol/L (135-145); Total Protein 7.7 g/dL (6.5-8.0)
== END 2022-06-07 13:52 | disposition home or self-care (01) ==
LOC: HO.LAB 13:51
PROVIDERS: Nurse Practitioner Family; PCP Internal Medicine; Visit Provider Internal Medicine
DX: K75.4 Autoimmune hepatitis (principal); M06.00 Rheumatoid arthritis without rheumatoid factor, unspecified site; Z79.52 Long term (current) use of systemic steroids
CPT/HCPCS: 36415; 80053; 82306; 85027; 85652; 86140

== ENCOUNTER → 2022-06-09 12:17 | Outpatient (BNVA) | payer MEDICARE, MEDICAID, SELFPAY | PROVIDERS: PCP Internal Medicine; Visit Provider Internal Medicine | DX: K75.4 Autoimmune hepatitis (principal); R79.89 Other specified abnormal findings of blood chemistry; E11.65 Type 2 diabetes mellitus with hyperglycemia | CPT/HCPCS: 99212 ==

== ENCOUNTER → 2022-06-15 12:45 | Outpatient (BNVA) | payer MEDICARE, MEDICAID, SELFPAY | PROVIDERS: PCP Internal Medicine; Visit Provider Internal Medicine Endocrinology, Diabetes & Metabolism | DX: E11.65 Type 2 diabetes mellitus with hyperglycemia (principal); E11.40 Type 2 diabetes mellitus with diabetic neuropathy, unspecified; Z79.4 Long term (current) use of insulin | CPT/HCPCS: 82947; 99212 ==

== ENCOUNTER 2022-06-21 13:44 | Outpatient (REF) | payer MEDICARE, MEDICAID, SELFPAY ==
[2022-06-21 14:14] LABS: Hematocrit 38.2 % (37.0-47.0); Hemoglobin 12.8 g/dl (12.0-16.0); Mean Corpuscular HGB Conc 33.5 g/dl (31.0-35.0); Mean Corpuscular Hemoglobin 29.4 pg (27.0-33.0); Mean Corpuscular Volume 87.8 fL (80.0-98.0); Mean Platelet Volume 8.9 fL (9.4-12.3); Platelet Count 248 X10*3/uL (160-400); Red Blood Count 4.35 X10*6/uL (4.20-5.50); Red Cell Distribution Width 12.5 % (11.0-16.0); White Blood Count 7.6 X10*3/uL (4.8-10.8)
[2022-06-21 15:12] LABS: Alanine Aminotransferase 13 U/L (0-31); Alkaline Phosphatase 79 U/L (39-117); Aspartate Amino Transferase 9 U/L (5-31); Bilirubin Direct 0.3 mg/dL (0.0-0.5); Total Protein 7.1 g/dL (6.5-8.0)
[2022-06-22 15:04] LABS: Immunoglobulin G 1595 mg/dL (600-1640)
== END 2022-06-21 13:45 | disposition home or self-care (01) ==
LOC: HO.LAB 13:44
PROVIDERS: PCP Internal Medicine; Visit Provider Internal Medicine
DX: K75.4 Autoimmune hepatitis (principal)
CPT/HCPCS: 36415; 80076; 82784; 85027

== ENCOUNTER 2022-08-28 00:19 | Emergency (ER) | payer MEDICARE, MEDICAID, SELFPAY ==
--- NOTE | ~2022-08-28 | XR_ITS ---
EXAMINATION: XR KNEE, LEFT CLINICAL INFORMATION: Pain after trauma COMPARISON: 11/20/2020 TECHNIQUE: Four views of the left knee. FINDINGS: Osseous alignment is anatomic. Joint spaces appear relatively well-preserved. No acute fracture is seen. No significant effusion. XR/XR knee LT 4V IMPRESSION: No acute findings identified.
[2022-08-28 00:30] VITALS: BP 119/54; PULSE 69; RESP 16; TEMP 36.8; O2SAT 99; BMI 30.7
--- NOTE | 2022-08-28 01:51 | ED.GENADULT ---
HPI - General Adult General Chief complaint: Extremity Injury, Lower Stated complaint: L Knee pain Time Seen by Provider: 08/28/22 01:24 Source: patient Mode of arrival: ambulatory Limitations: no limitations History of Present Illness HPI narrative: 57-year-old female presents with left knee pain. Pain happened just prior to arrival. She was bending over when she heard a pop in her left knee. She now has lateral knee pain. The pain radiates distally. There is no numbness or tingling. She denies any additional injuries. She notes no swelling. Pain is worse with ambulation. Is better with rest. There has been no prior treatment. Related Data Home Medications Medication Instructions Recorded Confirmed bisacodyl 5 mg tablet,delayed 5 mg PO BEDTIME 03/04/22 06/15/22 release Previous Rx's Medication Instructions Recorded folic acid 1 mg tablet 1 mg PO DAILY #30 tabs 05/08/21 blood-glucose meter (FreeStyle #1 ea 05/13/21 Lite Meter kit) loratadine 10 mg capsule 10 mg PO DAILY 90 days #90 caps 06/22/21 pen needle, diabetic 32 gauge x #150 ea 11/02/2132 (BD Ultra-Fine Alivia Pen Needle) albuterol sulfate 90 mcg/actuation 2 puff inhalation Q6H PRN 12/08/21 aerosol inhaler bronchospasm 30 days #6.7 grams metformin 500 mg tablet,extended 1,000 mg PO QPM #30 tabs 01/06/22 release 24hr tiotropium 2.5 mcg-olodaterol 2.5 2 puff inhalation DAILY 30 days #4 03/05/22 mcg/actuation mist for inhalation grams (Stiolto Respimat) blood sugar diagnostic (FreeStyle #100 ea 03/12/22 Lite Strips) lancets 28 gauge (FreeStyle #100 ea 03/12/22 Lancets) ondansetron HCl 8 mg tablet 8 mg PO DAILY PRN nausea and 05/12/22 vomiting 30 days #30 tabs fluconazole 150 mg tablet 150 mg PO Q3D 2 doses #2 tabs 05/24/22 insulin degludec 200 unit/mL (3 130 unit (0.65 mL) subcut BEDTIME 06/08/22 mL) subcutaneous pen (Tresiba 30 days #19.5 mL FlexTouch U-200 insulin) flash glucose scanning reader #1 ea 06/15/22 (FreeStyle Liza 2 [place]) flash glucose sensor (FreeStyle #2 ea 06/15/22 Liza 2 Sensor kit) insulin lispro 100 unit/mL 10 unit (0.1 mL) subcut TID 30 06/23/22 subcutaneous pen (Humalog Kw days #9 mL (U-100) Insulin) hepatitis A and B virus 1 ml IM ONCE #1 mL 06/28/22 vaccine(PF)720 TAMIKO unit-20 mcg/mL IM syringe (Twinrix (PF)) mercaptopurine 50 mg tablet 50 mg PO DAILY #90 tabs 06/29/22 prednisone 5 mg tablet 5 mg PO DAILY 4 weeks #28 tabs 06/29/22 cholecalciferol (vitamin D3) 1,250 1,250 mcg PO QWEEK #8 caps 08/11/22 mcg (50,000 unit) capsule omeprazole 20 mg capsule,delayed 20 mg PO DAILY 6 months #180 caps 08/11/22 release zolpidem 10 mg tablet 10 mg PO BEDTIME insomnia 30 days 08/11/22 #30 tabs levothyroxine 200 mcg tablet 200 mcg PO DAILY 90 days #90 tabs 08/15/22 rosuvastatin 10 mg tablet 10 mg PO DAILY 90 days #90 tabs 08/15/22 oxycodone 10 mg tablet 10 mg PO BID PRN pain 30 days #60 08/18/22 tabs cyclobenzaprine 10 mg tablet 10 mg PO TID PRN muscle spasm #10 08/28/22 tabs Allergies Allergy/AdvReac Type Severity Reaction Status Date / Time gadobutrol [From GADAVIST] Allergy Severe ANAPHYLAXIS Verified 06/15/22 12:57 hydroxychloroquine Allergy Intermediate rash,facial Verified 06/15/22 12:57 [Plaquenil] swelling Iodinated Contrast Media Allergy Intermediate DIFF Verified 06/15/22 12:57 [CONTRAST, IV] BREATHING levofloxacin [From LEVAQUIN] Allergy Intermediate ITCHY RASH Verified 06/15/22 12:57 pregabalin [From LYRICA] Allergy Intermediate STOMACH Verified 06/15/22 12:57 UPSET, Swelling tramadol Allergy Intermediate abdominal Verified 06/15/22 12:57 pain insulin aspart AdvReac Unknown chills, Verified 06/24/22 15:12 [From Novolog U-100 Insulin shaking, aspart] sweating, weakness and tachycardia azathioprine AdvReac Nausea and Verified 06/15/22 12:57 Vomiting Statins Support Allergy Intermediate transaminit Uncoded 06/15/22 12:57 is MRI contrast (gadolinium) AdvReac Unknown anaphylaxis Uncoded 06/15/22 12:57 Review of Systems Review of Systems: CONSTITUTIONAL: Denies weight loss, fever and chills. HEENT: Denies changes in vision and hearing. RESPIRATORY: Denies SOB and cough. CV: Denies palpitations no CP. GI: Denies abdominal pain, nausea, vomiting and diarrhea. : Denies dysuria and urinary frequency. MSK: Denies myalgia positive joint pain. SKIN: Denies rash and pruritus. NEUROLOGICAL: Denies headache and syncope. PSYCHIATRIC: Denies recent changes in mood. Denies anxiety and depression. All other ROS are negative unless in HPI PMFSH Past Medical History Medical History Abdominal pain Autoimmune thyroiditis Bilateral hand numbness Breast mass, right Chronic constipation Chronic idiopathic constipation Diabetes type 2, uncontrolled Diabetic polyneuropathy associated with type 2 diabetes mellitus Dyslipidemia Fibromyalgia GERD (gastroesophageal reflux disease) Hand numbness Hypoactive bowel sounds Inflammatory arthritis Insomnia intermediate (current) use of insulin Low vitamin D level Lung cyst Neck pain Osteoarthritis of hand, left Post-surgical hypothyroidism Weight loss Surgical History History of esophagogastroduodenoscopy (EGD) History of hysterectomy History of liver biopsy History of thyroidectomy, total Hx of colonoscopy (1998) Hx of removal of cyst Family History Family History Father Status post liver transplant, biliary anastomotic size mismatch Brother No problems noted. Mother No problems noted. Maternal Aunt Breast cancer Other Mental health problem Substance abuse Social History Social History Household Members: None Housing: House Alcohol intake: never Patient Tobacco Use Status: Former Tobacco user Quit Date: 10+ yrs ago Tobacco use type: Cigarette Cigarettes Per Day: 7 Years Smoked: 6 e-Cigarette/Vaping Use: Never Used Second Hand Smoke Exposure: No Advance Directives: Yes Advance Directives on File: Yes Advance Directives Date on File: 07/15/20 service: No Current occupational status: disabled Cognitive needs: No Hearing needs: No Vision needs: No Physical Exam ED Vital Signs: Vital Signs - 24 hr 08/28/22 00:30 Temperature 98.2 F Pulse Rate 69 Respiratory Rate 16 Blood Pressure 119/54 L Pulse Oximetry 99 Oxygen Delivery Method Room Air BMI result Body Mass Index 30.7 GEN: Well developed, no acute distress, alert, oriented HEENT: Normocephalic, atraumatic, normal external ears, nose appears normal Eyes: Normal to appearance Neck: Supple, no lymphadenopathy Respiratory: Talks in complete sentences, no respiratory distress Extremities: No clubbing cyanosis or edema, tenderness over the lateral aspect of the joint, Francesca no joint effusion, no laxity of joint with lateral medial stress, negative anterior posterior drawer sign. Neurovascularly intact Neurologic: No focal neurologic deficits, cranial nerves 2-12 intact, gait normal Skin: No rash Course Course Course Narrative: Patient presents with acute left knee pain. X-ray was negative for fracture. Patient be placed in knee immobilizer for comfort crutches. She will follow-up with orthopedics. Medical Decision Making Medical Decision Making [facility] Narrative: 57-year-old female presents left knee pain. Examination revealed tenderness, no joint effusion, no laxity of joint. Differential diagnosis includes sprain, strain, contusion, fracture, internal knee derangement. Patient will get an x-ray. Patient will be placed in knee immobilizer for comfort. Will provide her with instructions for crutches. Differential Diagnosis Differential Diagnoses: The differential diagnosis associated with the presentation includes (See above) Knee sprain Independent Interpretation I performed an independent interpretation of an: Plain X-Ray (No acute fracture) Tests considered The following testing was considered but not selected: CT lower extremity Prescription Management I considered prescription management with: Pain Medication Discharge Plan Discharge Clinical Impression: Sprain of knee Patient Disposition: Home, Self-Care Instructions: Knee Sprain (ED) Prescriptions: New cyclobenzaprine 10 mg tablet 10 mg PO TID PRN (Reason: muscle spasm) Qty: 10 0RF No Action loratadine 10 mg capsule 10 mg PO DAILY 90 Days Qty: 90 3RF (DME) pen needle, diabetic [BD Ultra-Fine Alivia Pen Needle] 32 gauge x 5/32 needle See Rx Instructions .ROUTE .MEDSUPPLY Qty: 150 11RF Rx Instructions: As directed 4x/day albuterol sulfate 90 mcg/actuation HFA aerosol inhaler 2 puff inhalation Q6H PRN (Reason: bronchospasm) 30 Days Qty: 6.7 2RF metformin 500 mg tablet extended release 24hr 1,000 mg PO QPM Qty: 30 5RF (DME) FreeStyle Lite Strips Strip See Rx Instructions .Route Qty: 100 11RF Rx Instructions: As directed 3 times a day (DME) lancets [FreeStyle Lancets] 28 gauge misc See Rx Instructions .Route Qty: 100 5RF Rx Instructions: Use 1 lancet three times a day ondansetron HCl 8 mg tablet 8 mg PO DAILY PRN (Reason: nausea and vomiting) 30 Days Qty: 30 0RF Tresiba FlexTouch U-200 200 unit/mL (3 mL) insulin pen 130 unit subcut BEDTIME 30 Days Qty: 19.5 1RF insulin lispro [Humalog KwikPen Insulin] 100 unit/mL insulin pen 10 unit subcut TID 30 Days Qty: 9 3RF Twinrix (PF) 720 TAMIKO unit- 20 mcg/mL syringe 1 ml IM ONCE Qty: 1 0RF mercaptopurine 50 mg tablet 50 mg PO DAILY Qty: 90 2RF prednisone 5 mg tablet 5 mg PO DAILY 28 Days Qty: 28 0RF Rx Instructions: After completing prednisone 10mg zolpidem 10 mg tablet 10 mg PO BEDTIME 30 Days Qty: 30 0RF cholecalciferol (vitamin D3) 1,250 mcg (50,000 unit) capsule 1,250 mcg PO QWEEK Qty: 8 1RF omeprazole 20 mg capsule,delayed release(DR/EC) 20 mg PO DAILY 180 Days Qty: 180 1RF rosuvastatin 10 mg tablet 10 mg PO DAILY 90 Days Qty: 90 2RF levothyroxine 200 mcg tablet 200 mcg PO DAILY 90 Days Qty: 90 1RF oxycodone 10 mg tablet 10 mg PO BID PRN (Reason: pain) 30 Days Qty: 60 0RF Rx Instructions: Partial Fill upon patient request. bisacodyl 5 mg tablet,delayed release (DR/EC) 5 mg PO BEDTIME fluconazole 150 mg tablet 150 mg PO Q3D Qty: 2 0RF (DME) blood-glucose meter [FreeStyle Lite Meter] Kit See Rx Instructions .Route Qty: 1 0RF Rx Instructions: As directed (DME) FreeStyle Liza 2 Sensor Kit See Rx Instructions .Route Qty: 2 5RF Rx Instructions: As directed -change every 14 days (DME) FreeStyle Liza 2 [place] Misc See Rx Instructions .Route Qty: 1 2RF Rx Instructions: As directed folic acid 1 mg tablet 1 mg PO DAILY Qty: 30 3RF Stiolto Respimat 2.5-2.5 mcg/actuation mist 2 puff inhalation DAILY 30 Days Qty: 4 6RF Referrals: Rishi Torres MD [Physician] - 1 week
--- NOTE | 2022-08-28 02:58 | PC.NURSE ---
attempted to discharge pt, pt left with out paper work. Notified by provider.
== END 2022-08-28 03:03 | disposition home or self-care (01) ==
PROVIDERS: Emergency Provider Emergency Medicine; PCP Internal Medicine
DX: S83.92XA Sprain of unspecified site of left knee, initial encounter (principal); X58.XXXA Exposure to other specified factors, initial encounter; Y93.9 Activity, unspecified; Y92.9 Unspecified place or not applicable; Y99.9 Unspecified external cause status; Z79.899 Other long term (current) drug therapy; Z87.891 Personal history of nicotine dependence
CPT/HCPCS: 73564; 99282; 99283

== ENCOUNTER → 2022-09-30 13:40 | Outpatient (BNVA) | payer MEDICARE, MEDICAID, SELFPAY | PROVIDERS: PCP Internal Medicine; Visit Provider Orthopaedic Surgery | DX: M25.562 Pain in left knee (principal); S83.242A Other tear of medial meniscus, current injury, left knee, initial encounter; X50.1XXA Overexertion from prolonged static or awkward postures, initial encounter; Y93.9 Activity, unspecified; Y92.9 Unspecified place or not applicable; Y99.8 Other external cause status; Z79.52 Long term (current) use of systemic steroids; Z79.891 Long term (current) use of opiate analgesic; Z79.899 Other long term (current) drug therapy | CPT/HCPCS: 99212 ==

== ENCOUNTER 2022-10-12 17:06 | Outpatient (AMB) | payer MEDICARE, MEDICAID, SELFPAY ==
[2022-10-12 17:08] VITALS: BP 118/70; BMI 29.8
--- NOTE | 2022-10-12 17:08 | A.OFFPC_ITS ---
Vital Signs 10/12/22 17:08 Height 5 ft 7 in Weight 190 lb BMI 29.8 BP 118/70 Blood Pressure Location Lt brachial Position Sitting Intake Visit Reasons: left knee pain Intake Note: Patient here for [facility] ED follow up Left knee pain Manager Online Required: No Accompanied by: Self / Same As Patient Allergies gadobutrol [From GADAVIST] Allergy (Severe, Verified 10/12/22 17:18) ANAPHYLAXIS hydroxychloroquine [Plaquenil] Allergy (Intermediate, Verified 10/12/22 17:18) rash,facial swelling Iodinated Contrast Media [CONTRAST, IV] Allergy (Intermediate, Verified 10/12/22 17:18) DIFF BREATHING levofloxacin [From LEVAQUIN] Allergy (Intermediate, Verified 10/12/22 17:18) ITCHY RASH pregabalin [From LYRICA] Allergy (Intermediate, Verified 10/12/22 17:18) STOMACH UPSET, Swelling tramadol Allergy (Intermediate, Verified 10/12/22 17:18) abdominal pain insulin aspart [From Novolog U-100 Insulin aspart] Adverse Reaction (Unknown, Verified 10/12/22 17:18) chills, shaking, sweating, weakness and tachycardia azathioprine Adverse Reaction (Verified 10/12/22 17:18) Nausea and Vomiting Statins Support Allergy (Intermediate, Uncoded 10/12/22 17:18) transaminitis MRI contrast (gadolinium) Adverse Reaction (Unknown, Uncoded 10/12/22 17:18) anaphylaxis Medication List - Last Reconciled 10/12/22 by Becca Newberry MD albuterol sulfate 90 mcg/actuation 2 puffs inhalation Q6H PRN 30 days bisacodyl 5 mg PO BEDTIME blood sugar diagnostic (FreeStyle Lite Strips) As directed 3 times a day blood-glucose meter (FreeStyle Lite Meter kit) As directed cholecalciferol (vitamin D3) 1,250 mcg PO QWEEK flash glucose scanning reader (FreeStyle Liza 2 [place]) As directed flash glucose sensor (FreeStyle Liza 2 Sensor kit) As directed -change every 14 days fluconazole 150 mg PO Q3D 2 doses folic acid 1 mg PO DAILY hepatitis A and B vaccine (PF) 720 TAMIKO unit- 20 mcg/mL (Twinrix (PF)) 1 mL IM ONCE insulin degludec (Tresiba FlexTouch U-200 insulin) 130 units (0.65 mL) subcut BEDTIME 30 days insulin lispro (Humalog KwikPen (U-100) Insulin) 10 units (0.1 mL) subcut TID 30 days lancets (FreeStyle Lancets) Use 1 lancet three times a day levothyroxine 200 mcg PO DAILY 90 days loratadine 10 mg PO DAILY 90 days mercaptopurine 50 mg PO DAILY metformin ER 1,000 mg (2 x 500 mg) PO QPM omeprazole 20 mg PO DAILY 6 months ondansetron HCl 8 mg PO DAILY PRN 30 days oxycodone 10 mg PO BID PRN 30 days pen needle, diabetic (BD Ultra-Fine Alivia Pen Needle) As directed 4x/day prednisone 5 mg PO DAILY 4 weeks rosuvastatin 10 mg PO DAILY 90 days tiotropium-olodaterol 2.5-2.5 mcg/actuation (Stiolto Respimat) 2 puffs inhalation DAILY 30 days zolpidem 10 mg PO BEDTIME 30 days Tobacco use date assessed: 05/24/22 Dental Screening Dental Screen Date: 10/12/22 Did you have a dental visit in the last 12 months?: Yes Did you have a dental problem in the last 6 months where you did not have access to dental care?: No Was dental information given to patient?: Patient has dentist HPI HPI Comments History of Present Illness Details This is a 57-year-old female with diabetes mellitus type 2 on long-term current use of insulin uncontrolled, hyperlipidemia, autoimmune hepatitis and several negative rheumatoid arthritis that complains of left knee pain that started last month while she was at a kid's green party and bend forward while the knee made a noise and start been very painful. She went to ER and had x-ray of the knee which was normal. Was evaluated by Ortho or ready which were order an MRI and still pending for approval. S since then she has not been able to flex the left knee and pain improves the knee extended. A1c elevated and insulin was recently increased. This is follow by Endocrinology. Lipid panel will be order and her LDL goal should be less than 70. On mercaptopurine for autoimmune hepatitis follow by Gastroenterology. Rheumatoid arthritis is follow by Rheumatology. Complains of some occasional chest pain associated with palpitations and an EKG will be order. Also has ptosis of right upper eyelid ocasionally and CT of the head will be ordered. 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 Mother No problems noted. Maternal Aunt Breast cancer Other Mental health problem Substance abuse Social History Household Members: None Housing: House Alcohol intake: never Patient Tobacco Use Status: Former Tobacco user Quit Date: 10+ yrs ago Tobacco use type: Cigarette Cigarettes Per Day: 7 Years Smoked: 6 e-Cigarette/Vaping Use: Never Used Second Hand Smoke Exposure: No Advance Directives Date on File: 07/15/20 service: No Current occupational status: disabled Current occupation: right hand Cognitive needs: No Hearing needs: No Vision needs: No Female Reproductive History Menstrual Age of Menarche: 12 Questionnaire Thrive Questionnaire Date Thrive assessed: 05/24/22 HATTIE-7 AMB Questionnaire HATTIE-7 Date HATTIE - 7 assessed: 05/24/22 Source: Developed by Drs. Esdras Tang, April Mathews, Bobby Toussaint and colleagues, with an educational antonella from [employer]. Review of Systems Const All systems reviewed & are unremarkable except as noted in HPI and below Eyes Reports no additional complaints, Denies change in vision and Denies other visual disturbances Card Denies chest pain at rest, Denies chest pain with activity, Denies edema, Denies irregular heart rhythm, Denies claudication, Denies dyspnea, Denies dyspnea on exertion, Denies orthopnea, Denies paroxysmal nocturnal dyspnea and Denies slow heart rate Resp Denies cough, Denies dyspnea and Denies dyspnea on exertion GI Denies abdominal pain, Denies change in bowel habits, Denies excessive flatus, Denies nausea and Denies vomiting Denies urinary incontinence, Denies urinary hesitancy and Denies urinary urgency Musc Denies abnormal gait, Denies atrophy, Denies deformity, Reports arthralgias and Reports limited range of motion Skin/Breast Denies bleeding lesions, Denies changing lesions and Denies rash Neuro Denies abnormal gait and Denies lack of coordination Physical exam (Primary Care) Vital Signs: Last Vital Signs BP 118/70 10/12/22 17:08 BMI result Body Mass Index 29.8 Tobacco/Smoking Status: Tobacco use Status Tobacco use date assessed 05/24/22 10/12/22 17:16 Patient Tobacco Use Status Former Tobacco user 10/12/22 17:16 Tobacco use type Cigarette 10/12/22 17:16 e-Cigarette/Vaping Use Never Used 10/12/22 17:16 Thrive Assessment: Date of Thrive Assessment Date Thrive assessed 05/24/22 10/12/22 17:16 Eyes General: appearance normal, both eyes and all related structures Eyelids: Yes eyelids normal Conjunctivae: conjunctivae normal Neck Neck: Yes normal visual inspection and Yes supple Resp Effort & Inspection: normal respiratory effort Auscultation: clear to auscultation bilaterally Cardio Jugular venous distension: no JVD Rate: regular rate Rhythm: regular rhythm Heart sounds: S1 normal heart sound present and S2 normal heart sound present Extrem Left lower extremity: knee Details: tenderness and abnormal ROM Details: pain with active ROM Details: with flexion Results AMB Hemoglobin A1c AMB Hemoglobin A1c 12.4 % Last Edit by LINDA Crump on 10/12/22 17: 20 Results Reviewed Results Reviewed: Laboratory Last Values Hgb A1c (Clinic) 12.4 % (4.0-6.0) H 10/12/22 17:17 Assessment and Plan Assessment & Plan (1) Left knee pain: Code(s): M25.562 - Pain in left knee Plan: Continue oxycodone as needed. MRI pending. Follow-up with Ortho (2) Seronegative rheumatoid arthritis: Comment: Methotrexate 11/2020-July 2021. Code(s): M06.00 - Rheumatoid arthritis without rheumatoid factor, unspecified site Plan: Follow-up with rheumatology (3) Autoimmune hepatitis: Code(s): K75.4 - Autoimmune hepatitis Plan: Continue mercaptopurine. Follow up with Gastroenterology. (4) Hyperlipidemia LDL goal <70: Code(s): E78.5 - Hyperlipidemia, unspecified Plan: Continue statins. Repeat lipid panel. LDL goal less than 70 (5) Diabetes type 2, uncontrolled: Code(s): E11.65 - Type 2 diabetes mellitus with hyperglycemia Plan: Continue insulin. A1c goal is equal or less than 7%. Follow-up with endocrinology Orders: Orders CT head for stroke Today H02.401 - Unspecified ptosis of right eyelid ECG 12 lead EKG Today R07.9 - Chest pain, unspecified Vitamin B12 and Folate Today E53.8 - Deficiency of other specified B group vitamins Comprehensive [place]. Panel Fast Today K75.4 - Autoimmune hepatitis IRON PROFILE Today D64.9 - Anemia, unspecified Lipid Panel Today E78.5 - Hyperlipidemia, unspecified Thyroid Stimulating Hormone Today E06.3 - Autoimmune thyroiditis Vitamin D 25-OH Total Today E55.9 - Vitamin D deficiency, unspecified Microalbumin, Random (w Creat) Today E11.9 - Type 2 diabetes mellitus without complications Complete Blood Count Auto Diff Today D64.9 - Anemia, unspecified AMB Hemoglobin A1c Today E11.65 - Type 2 diabetes mellitus with hyperglycemia Medications: Changed From insulin degludec (Tresiba FlexTouch U-200 insulin) 130 units (0.65 mL) subcut BEDTIME 30 days 19.5 mL 1RF E11.42 - Type 2 diabetes mellitus with diabetic polyneuropathy To insulin degludec (Tresiba FlexTouch U-200 insulin) 150 units (0.75 mL) subcut BEDTIME 30 days 22.5 mL 1RF E11.42 - Type 2 diabetes mellitus with diabetic polyneuropathy From oxycodone Partial Fill upon patient request. 10 mg PO BID 30 days PRN 60 tabs 0RF pain To oxycodone Partial Fill upon patient request. 10 mg PO Q8H 30 days PRN 90 tabs 0RF pain Discontinued metformin ER Discontinued Reason: Patient Completed Course 1,000 mg (2 x 500 mg) PO QPM 30 tabs 5RF Coding Level of Care Code Est Pt Level 4 (00848) Diagnoses Left knee pain M25.562 Seronegative rheumatoid arthritis M06.00 Autoimmune hepatitis K75.4 Hyperlipidemia LDL goal <70 E78.5 Diabetes type 2, uncontrolled E11.65 Time Spent (min) 27
== END 2022-10-12 17:39 | disposition home or self-care (01) ==
PROVIDERS: PCP Internal Medicine; Visit Provider Internal Medicine
DX: M25.562 Pain in left knee (principal); M06.00 Rheumatoid arthritis without rheumatoid factor, unspecified site; K75.4 Autoimmune hepatitis; E11.65 Type 2 diabetes mellitus with hyperglycemia; E78.5 Hyperlipidemia, unspecified
CPT/HCPCS: 83036; 99214

== ENCOUNTER 2022-10-15 13:42 | Outpatient (AMB) | payer MEDICARE, MEDICAID, SELFPAY ==
[2022-10-15 13:49] VITALS: BP 114/71; BMI 30.2
--- NOTE | 2022-10-15 13:49 | MHC.OFFVIS ---
Intake Vital Signs 10/15/22 13:49 Height 5 ft 7 in Weight 192 lb 10.944 oz BMI 30.2 BP 114/71 Blood Pressure Location Lt brachial Position Sitting Intake Visit Reasons: 2 month fu Intake Note: Cece presents in office as a est.patient for a 2month f/u PT CC: Patient reports she continues to have abdominal pain and bloating but is now able to have regular BMs. She reports stabbing sharp pain to RUQ abdomen and LUQ abdominal pain. She reports 3 episodes of blood in the stool the past month. Denies other GI symptoms. 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 Accompanied by: Self / Same As Patient Allergies gadobutrol [From GADAVIST] Allergy (Severe, Verified 10/15/22 13:54) ANAPHYLAXIS hydroxychloroquine [Plaquenil] Allergy (Intermediate, Verified 10/15/22 13:54) rash,facial swelling Iodinated Contrast Media [CONTRAST, IV] Allergy (Intermediate, Verified 10/15/22 13:54) DIFF BREATHING levofloxacin [From LEVAQUIN] Allergy (Intermediate, Verified 10/15/22 13:54) ITCHY RASH pregabalin [From LYRICA] Allergy (Intermediate, Verified 10/15/22 13:54) STOMACH UPSET, Swelling tramadol Allergy (Intermediate, Verified 10/15/22 13:54) abdominal pain insulin aspart [From Novolog U-100 Insulin aspart] Adverse Reaction (Unknown, Verified 10/15/22 13:54) chills, shaking, sweating, weakness and tachycardia azathioprine Adverse Reaction (Verified 10/15/22 13:54) Nausea and Vomiting Statins Support Allergy (Intermediate, Uncoded 10/12/22 17:18) transaminitis MRI contrast (gadolinium) Adverse Reaction (Unknown, Uncoded 10/12/22 17:18) anaphylaxis HPI HPI Comments History of Present Illness Details This is a 56-year-old female past medical history of fibromyalgia, H pylori gastritis, who is following up in the gastroenterology office for autoimmune hepatitis (with grade 2-3 activity and stage 3-4 fibrosis biopsy 11/2021) Recap: 10/2021 Seen for intermittent RUQ pain and elevated LFTs. Workup so far has ruled out hepatitis-B and hepatitis-C. KIRA screen was negative. Celiac serology was negative for tissue transglutaminase IgA. ASMA was positive at 56. Antimitochondrial antibody negative. Of note a previously check total IgG was elevated at 1884 in 2019. Endoscopy: EGD 05/2020: Performed at [facility] by Dr. Chappell-normal esophagus. Gastritis-biopsies positive for H pylori. Normal duodenum. (To note, I am unable to see documentation of test of cure for H.pylori.) Colonoscopy 2018 was poor prep and recommendation was made to repeat in a year. To the extent visualized, the mucosa was reported as normal. At that visit plan was to recheck LFTs, A1AT, Anti-liver kidney, IgG. Also complained of dysphagia and barium swallow ordered. 11/2021. Continues to have intermittent RUQ discomfort. Now also noticing numbness in 3rd and 4th digits of RIGHT hand x 1 week. Denies any pain or pallor in these fingers. Says the numbness in 3rd finger is resolving but cont to have altered sensation in ring finger. Dysphagia is persistent too. Barium swallow was reviewed and negative for any gross dysmotility, stricture/web/ring. Pt describes dysphagia to specific textures such as hamburger, bread, steak etc. Has hx of environmental allergies and asthma. Reports weight loss of 20 lbs in the past one year - although not sure if due to decreased appetite from RUQ pain vs dietary modulation. 12/2021: Patient underwent liver biopsy on 12/18. Consistent with autoimmune hepatitis as suspected, with grade 2-3 activity and stage 3-4 fibrosis. Reports persistent sharp pain since the biopsy, which has slowly been improving. Comes in accompanied by her . She is quite anxious about the pathology results, despite reassurance multiple times at biopsies do not show cancer, but brother inflammation secondary to autoimmune hepatitis. To recap, her father had history of cirrhosis and from complications. Reviewed the management plan in detail with the patient as well as her spouse. Her blood sugars are running high in the last 1 week between 300-400. Patient currently does not have an geoscience technician. She plans to reach out to her primary care provider about adjustment of her medications. She also has history of rheumatoid arthritis, used to be on methotrexate, but currently not on any therapy. Has not seen her provider Brie Trinh in 6 months. EGD and colonoscopy has already been scheduled for this February. 01/29/22: Patient presents today for follow-up 4 week follow-up. Unfortunately, labs were not done, therefore TPMT status is still unknown. I also am not aware of response to prednisone. Patient reports consistently high blood sugars above 300. She also describes symptoms of nausea, dizziness, she to anus, and leg swelling. Also continues to have intermittent right upper quadrant discomfort. 02/26/22: Please see documentation from 02/23 re recent issues reviewed over phone call. In summary, patient is persistently having sugars above 350. She had a fasting blood sugar 489 on 02/23. In addition, also complain of whitish discoloration of her tongue associated with dysguesia and pain. Patient attributed these to her steroid therapy and stop taking her steroids for 3-4 days. She also had an episode of severe abdominal pain nausea and vomiting waking her up from night. Patient reports that blood sugars are now better controlled with up titration of insulin, and dietary discretion. Fasting blood sugar today was 228 , which is still high, but much better than 489. She also started applying coconut oil to her tongue, which has calmed down the burning sensation. Patient also reports a fall that she had yesterday, as she was going downstairs. She denies any presyncope or loss of consciousness, but also does not remember tripping. She is not entirely sure how she fell, but took a significant hit on her right side of the body, with bruising over her right arm and right leg. She tells me she has been noticing that she bruises more easily now. She reports taking azathioprine 100 mg once daily. Has resumed her prednisone taper 30 mg once daily. Has 3-4 days still left, consistent with her report of previously skipping medication. She was counseled again on not stopping her prednisone suddenly, to avoid withdrawal. She was also encouraged to keep compliance was a typewritten for continued remission of autoimmune hepatitis. She has already communicated with her law office receptionist and has been started on alendronate for osteopenia. EGD/colo 03/25/22: Tortuous esophagus, otherwise normal mucosa ?? Portal hypertensive gastropathy vs H pylori gastritis (biopsy) Abnormal duodenal mucosa (biopsy) Poor prep colon. Exam inadequate for CRC screening. External hemorrhoids Path: Duodenum, biopsy: Duodenal mucosa with preserved villous architecture and focally increased intraepithelial lymphocytes (see comment). Stomach, random, biopsy: Gastric antral and body mucosa with mild to moderate chronic active gastritis and few Helicobacter pylori organisms identified; negative for intestinal metaplasia and dysplasia. 04/07/2022: Reports that had 2 more episodes of abdominal discomfort, nausea vomiting and diarrhea. First in early February, and then again in late February. She reviewed the side effects of all of her recently started medication, and since then has stopped her azathioprine, alendronate, rosuvastatin. She does tell me that during these episodes, her sugars were very high, and her Glucometer just showed that the sugars were >500 but she does not know the exact number. Currently, main complaint is occasional fleeting spasm like pain and left lower quadrant the last 30 seconds, specially on movements. EGD and colonoscopy findings reviewed. Will be booked for another colonoscopy later this year due to inadequate prep. 04/16/22: From phone call discussion: Reviewed results with Cece - LFTs have started to go up as well. Labs reviewed from 04/09, no pancreatitis. Likely has drug related intolerance, which was confirmed on re-exposure (and as expected, sx onset was fairly quick on re-exposure). Counseled that can occur in almost 5% pts. Will book for office visit to review alternatives 6 MP, MMF.. 04/20/22: No further episodes of abd pain, N,V since discontinuation of Azathioprine. Reviewed alternatives including 6-mercaptoputine and mycophenolate. Given excellent response to azathioprine and non-allergic intolerance to side effects, will first trial 6MP. Pt was counseled re dosing, monitoring and possible side effects. 05/21/22: No gastrointestinal complaints today. Has been tolerating her mercaptopurine 50mg without any issues. Does not report any abdominal pain, nausea, vomiting, diarrhea. Prednisone taper continues on 20mg dosing which she will complete tomorrow. Sugars remain high often above 300. Looking forward to her appointment with geoscience technician next month. She also had an eye exam last week and does not report any abnormalities. Labs from last week have already been reviewed with the patient over the phone, but to recap, LFTs have all normalized and IgG is also now back to normal. 06/09/22:No acute GI issues. Down to prednisone 15mg a nd has a week left . Tolerating 6-MP 50mg once daily. L abs reviewed which were most signifi cant for BG >400. Insulin increased by her PCP. Also s eeing Endocrinolog y later this month . Supplements have already been sent for low Vit D. Pt has been quite st ressed recently du e to her mom's [facility]. Was recently diagnosed with dem entia. She plans t o take care of her at home but will likely have to mov e to a different p lace with more spa ce. Very overwhelm ed with her parent 's declining cogni tive dysfunction. Her brother doesnt help out much so she is virtually h er mothers only ca re overnight caregiver. 10/15/22: Has a lot on her plate these days. Brother suddenly in June - waiting on autopsy results still. Was very depressed during the grieving period and was not taking her medications for most of the June including 6-MP. Then recently in August also possibly tore her L meniscus - awaiting MRI through ortho. Postponed her visit with me initially scheduled 09/13 to today for that reason as well. Has also not scheduled her colo yet as has very limited mobility. In terms of AIH therapy, finished her pred taper in July. Resumed taking 6-MP towards the end of July. Due for labs. Sugars are now better controlled but having more lows now. Tells me CGM was not covered by her insurance. Sees Dr López. [facility] Medical History Abdominal pain Autoimmune thyroiditis Bilateral hand numbness Breast mass, right Chronic constipation Chronic idiopathic constipation Diabetes type 2, uncontrolled Diabetic polyneuropathy associated with type 2 diabetes mellitus Dyslipidemia Fibromyalgia GERD (gastroesophageal reflux disease) Hand numbness Hypoactive bowel sounds Inflammatory arthritis Insomnia MCFP (current) use of insulin Low vitamin D level Lung cyst Neck pain Osteoarthritis of hand, left Post-surgical hypothyroidism Weight loss Surgical History History of esophagogastroduodenoscopy (EGD) History of hysterectomy History of liver biopsy History of thyroidectomy, total Hx of colonoscopy (1998) Hx of removal of cyst Family History Father Status post liver transplant, biliary anastomotic size mismatch Brother No problems noted. Mother No problems noted. Maternal Aunt Breast cancer Other Mental health problem Substance abuse Social History Household Members: None Housing: House Alcohol intake: never Patient Tobacco Use Status: Former Tobacco user Quit Date: 10+ yrs ago Tobacco use type: Cigarette Cigarettes Per Day: 7 Years Smoked: 6 e-Cigarette/Vaping Use: Never Used Second Hand Smoke Exposure: No Advance Directives Date on File: 07/15/20 service: No Current occupational status: disabled Current occupation: right hand Cognitive needs: No Hearing needs: No Vision needs: No Female Reproductive History Menstrual Age of Menarche: 12 Review of Systems Const All systems reviewed & are unremarkable except as noted in HPI and below Physical Exam Vital Signs: Last Vital Signs BP 114/71 10/15/22 13:49 BMI result Body Mass Index 30.2 Gen appear: No acute distress, well nourished HEENT: no icterus, no cervical lymphadenopathy Chest: No overt resp distress CVS: S1/S2, regular Abd: soft, nontender, nondistended Psych: Stable affect, answering questions appropriately Neuro: A/Ox3 noted to move all extremities spontaneously Ext: no peripheral edema Assessment & Plan Assessment & Plan (1) Autoimmune hepatitis: Code(s): K75.4 - Autoimmune hepatitis (2) Low vitamin D level: Code(s): R79.89 - Other specified abnormal findings of blood chemistry (3) Osteopenia: Code(s): M85.80 - Other specified disorders of bone density and structure, unspecified site (4) Encounter for screening colonoscopy: Code(s): Z12.11 - Encounter for screening for malignant neoplasm of colon Plan Patient has biopsy-proven autoimmune hepatitis. Unable to tolerate Azathioprine due to side effects (abd pain, N,V - lipase normal). Sx returned within a few hours on rechallenge. Started on 6-MP in Mar 2022. Has been tolerating it without any side effects so far. White count WNL. LFTs and IgG had previously spiked after she discontinued AZA, but have now normalised on most recent labs. Discussed my concerns that depending on how long she was off the 6-MP we may have lost remission but will check labs. Check CBC, liver panel and IgG Depending on results may need to repeat prednisone induction. Otherwise, continue 6-MP 50mg. US Abd ordered. Osteopenia: - Alendronate tx as per endocrine/Rheum - Recheck Vit D. Was low in May and supplemented with Vit D 50,000 IU x 8 weeks CRC screening: - Would like to defer for a few months while she is undergoing L knee pain eval and management. Follow-up in 3 months. Orders: Orders Liver Panel Today K75.4 - Autoimmune hepatitis Immunoglobulin G Today K75.4 - Autoimmune hepatitis Complete Blood Count no Diff Today K75.4 - Autoimmune hepatitis US abdomen complete Today K75.4 - Autoimmune hepatitis Vitamin D 25-OH Total Today R79.89 - Other specified abnormal findings of blood chemistry Coding Level of Care Code Est Pt Level 5 (32952) Diagnoses Autoimmune hepatitis K75.4 Low vitamin D level R79.89 Osteopenia M85.80 Encounter for screening colonoscopy Z12.11
== END 2022-10-15 14:31 | disposition home or self-care (01) ==
PROVIDERS: PCP Internal Medicine; Visit Provider Internal Medicine
DX: K75.4 Autoimmune hepatitis (principal); R79.89 Other specified abnormal findings of blood chemistry; M85.80 Other specified disorders of bone density and structure, unspecified site; Z12.11 Encounter for screening for malignant neoplasm of colon
CPT/HCPCS: 99214

== ENCOUNTER → 2022-10-15 13:42 | Outpatient (BNVA) | payer MEDICARE, MEDICAID, SELFPAY | PROVIDERS: PCP Internal Medicine; Visit Provider Internal Medicine | DX: K75.4 Autoimmune hepatitis (principal); E55.9 Vitamin D deficiency, unspecified; M85.80 Other specified disorders of bone density and structure, unspecified site | CPT/HCPCS: 99212 ==

== ENCOUNTER 2022-10-29 14:01 | Outpatient (REF) | payer MEDICARE, MEDICAID, SELFPAY ==
[2022-10-29 14:51] LABS: Hematocrit 36.6 % (37.0-47.0); Hemoglobin 11.9 g/dl (12.0-16.0); Mean Corpuscular HGB Conc 32.5 g/dl (31.0-35.0); Mean Corpuscular Hemoglobin 29.1 pg (27.0-33.0); Mean Corpuscular Volume 89.5 fL (80.0-98.0); Mean Platelet Volume 9.2 fL (9.4-12.3); Platelet Count 234 X10*3/uL (160-400); Red Blood Count 4.09 X10*6/uL (4.20-5.50); Red Cell Distribution Width 12.2 % (11.0-16.0); White Blood Count 4.6 X10*3/uL (4.8-10.8)
[2022-10-29 15:47] LABS: Alanine Aminotransferase 14 U/L (0-31); Albumin Level 3.9 g/dL (3.5-5.0); Alkaline Phosphatase 87 U/L (39-117); Aspartate Amino Transferase 15 U/L (5-31); Bilirubin Direct 0.1 mg/dL (0.0-0.5); Bilirubin Total 0.3 mg/dL (0.0-1.0); Total Protein 7.9 g/dL (6.5-8.0)
[2022-11-01 15:04] LABS: Immunoglobulin G 2312 mg/dL (600-1640)
== END 2022-10-29 14:02 | disposition home or self-care (01) ==
LOC: HO.LAB 14:01
PROVIDERS: PCP Internal Medicine; Visit Provider Internal Medicine
DX: K75.4 Autoimmune hepatitis (principal); E55.9 Vitamin D deficiency, unspecified
CPT/HCPCS: 36415; 80076; 82306; 82784; 85027

== ENCOUNTER 2022-11-15 11:12 | Outpatient (REF) | payer MEDICARE, MEDICAID, SELFPAY ==
--- NOTE | ~2022-11-15 | US_ITS ---
EXAMINATION: US ABDOMEN COMPLETE CLINICAL INFORMATION: Autoimmune hepatitis. COMPARISON: Ultrasound abdomen complete 01/26/2022. CT abdomen and pelvis without contrast 11/11/2021. Ultrasound abdomen limited 08/13/2021. X-ray abdomen KUB 05/09/2021. X-ray abdomen 12/25/2018. MRI abdomen without and with contrast 07/02/2014. TECHNIQUE: Real-time imaging of the abdominal viscera. FINDINGS: PANCREAS: Normal. ABDOMINAL AORTA: The proximal, mid, and distal segments are normal in caliber. INFERIOR VENA CAVA: Visualized portions are normal. LIVER: Liver echotexture is slightly increased. The contour of the liver may be slightly irregular or scalloped questionable for mild changes of cirrhosis. The liver is enlarged, right lobe measuring 20 cm in length. There is mild intrahepatic biliary duct dilatation. GALLBLADDER: Surgically absent. COMMON BILE DUCT: Dilated measuring 1.6 cm in diameter. This is increased from 1.3 cm on previous exam. RIGHT KIDNEY: Normal. No hydronephrosis. No renal calculi or focal parenchymal lesions. The kidney measures 10.0 cm in maximum dimension. LEFT KIDNEY: Normal. No hydronephrosis. No renal calculi or focal parenchymal lesions. The kidney measures 10.2 cm in maximum dimension. SPLEEN: Slightly enlarged. The spleen measures 13.7 cm in maximum dimension. FREE FLUID: None. US/US abdomen complete IMPRESSION: Enlarged slightly echogenic liver with question mild cirrhotic changes. Increasing intra and extrahepatic biliary duct dilatation. Post cholecystectomy. Slightly enlarged spleen.
== END 2022-11-15 11:13 | disposition home or self-care (01) ==
LOC: HO.US 11:12
PROVIDERS: Visit Provider Internal Medicine
DX: K75.4 Autoimmune hepatitis (principal)
CPT/HCPCS: 76700

== ENCOUNTER 2022-11-26 12:49 | Outpatient (REF) | payer MEDICARE, MEDICAID, SELFPAY ==
--- NOTE | ~2022-11-26 | MR_ITS ---
EXAMINATION: MR KNEE WITHOUT CONTRAST, LEFT CLINICAL INFORMATION: S83.242A - Other tear of medial meniscus, current injury, left knee. Left knee pain. Injury. Failed physical therapy. COMPARISON: Left knee radiograph dated 11/20/2020, MRI dated 09/04/2012. TECHNIQUE: MRI of the knee without contrast was performed using routine sequences on a high-field scanner. FINDINGS: MENISCI: MEDIAL MENISCUS: There is a near-complete tear of the posterior root. Meniscal body is partially extruded. Degenerative intrasubstance signal is present within the meniscal body. LATERAL MENISCUS: Intact. LIGAMENTS: CRUCIATE: Intact. COLLATERAL: Edema signal around the medial collateral ligament is likely reactive to the underlying meniscal abnormality. Collateral ligaments are intact. EXTENSOR MECHANISM: Intact. ARTICULAR CARTILAGE/BONE: PATELLOFEMORAL COMPARTMENT: [id number] nonuniform chondral thinning at the central patella with chondral fibrillation. Small marginal osteophytes. Additional [id number] nonuniform chondral thinning in the central trochlea. Normal trochlear morphology. MEDIAL COMPARTMENT: Partial-thickness chondral thinning at the medial femoral condyle and medial tibial plateau with chondral fibrillation. At the medial femoral condyle weightbearing surface, there is a 1.8 x 0.9 cm high-grade chondral defect with chondral delamination along the margins. LATERAL COMPARTMENT: Osseous fragmentation of the lateral tibial spine. Minimal chondral thinning at the medial margin of the lateral tibial plateau. JOINT FLUID AND BURSAE: Small joint effusion and Yu's cyst. Yu's cyst is leaking fluid distally within the superficial fascial plane overlying the medial head of the gastrocnemius muscle. MR/MR knee LT wo con IMPRESSION: 1. Near-complete tear of the posterior root of the medial meniscus with partial extrusion of the meniscal body. 2. [id number] medial and patellofemoral compartment osteoarthritis. More minimal osteoarthritis in the lateral compartment. 3. Small joint effusion and Yu's cyst.
== END 2022-11-26 12:50 | disposition home or self-care (01) ==
LOC: HO.MRI 12:49
PROVIDERS: PCP Internal Medicine; Visit Provider Orthopaedic Surgery
DX: S83.242A Other tear of medial meniscus, current injury, left knee, initial encounter (principal)
CPT/HCPCS: 73721

== ENCOUNTER 2022-11-30 12:36 | Outpatient (AMB) | payer MEDICARE, MEDICAID, SELFPAY ==
--- NOTE | 2022-11-30 12:38 | MHC.OFFVIS ---
Intake Vital Signs 11/30/22 12:40 Height 5 ft 7 in Weight 196 lb 3.382 oz BMI 30.7 BP 120/56 L Blood Pressure Location Lt brachial Position Sitting Pulse 64 Intake Visit Reasons: Discuss US Results Intake Note: Cece presents in the office as a follow up to go over US results. CC: She states that her bloating is still happening and she realizes loss of breath and off balance. She notices that she gets pale/yellow feeling by the end of the day. Very dizzy and tired. She feels sharp pains in the right upper quadrant of her stomach. Denies irregular bowel movements. Pin Game Machine Inspector Required: No Allergies gadobutrol [From GADAVIST] Allergy (Severe, Verified 11/30/22 12:40) ANAPHYLAXIS hydroxychloroquine [Plaquenil] Allergy (Intermediate, Verified 11/30/22 12:40) rash,facial swelling Iodinated Contrast Media [CONTRAST, IV] Allergy (Intermediate, Verified 11/30/22 12:40) DIFF BREATHING levofloxacin [From LEVAQUIN] Allergy (Intermediate, Verified 11/30/22 12:40) ITCHY RASH pregabalin [From LYRICA] Allergy (Intermediate, Verified 11/30/22 12:40) STOMACH UPSET, Swelling tramadol Allergy (Intermediate, Verified 11/30/22 12:40) abdominal pain insulin aspart [From Novolog U-100 Insulin aspart] Adverse Reaction (Unknown, Verified 11/30/22 12:40) chills, shaking, sweating, weakness and tachycardia azathioprine Adverse Reaction (Verified 11/30/22 12:40) Nausea and Vomiting Statins Support Allergy (Intermediate, Uncoded 11/30/22 12:40) transaminitis MRI contrast (gadolinium) Adverse Reaction (Unknown, Uncoded 11/30/22 12:40) anaphylaxis HPI HPI Comments History of Present Illness Details This is a 56-year-old female past medical history of fibromyalgia, H pylori gastritis, who is following up in the gastroenterology office for autoimmune hepatitis (with grade 2-3 activity and stage 3-4 fibrosis biopsy 11/2021) Recap: 10/2021 Seen for intermittent RUQ pain and elevated LFTs. Workup so far has ruled out hepatitis-B and hepatitis-C. KIRA screen was negative. Celiac serology was negative for tissue transglutaminase IgA. ASMA was positive at 56. Antimitochondrial antibody negative. Of note a previously check total IgG was elevated at 1884 in 2019. Endoscopy: EGD 05/2020: Performed at [facility] by Dr. Chappell-normal esophagus. Gastritis-biopsies positive for H pylori. Normal duodenum. (To note, I am unable to see documentation of test of cure for H.pylori.) Colonoscopy 2018 was poor prep and recommendation was made to repeat in a year. To the extent visualized, the mucosa was reported as normal. At that visit plan was to recheck LFTs, A1AT, Anti-liver kidney, IgG. Also complained of dysphagia and barium swallow ordered. 11/2021. Continues to have intermittent RUQ discomfort. Now also noticing numbness in 3rd and 4th digits of RIGHT hand x 1 week. Denies any pain or pallor in these fingers. Says the numbness in 3rd finger is resolving but cont to have altered sensation in ring finger. Dysphagia is persistent too. Barium swallow was reviewed and negative for any gross dysmotility, stricture/web/ring. Pt describes dysphagia to specific textures such as hamburger, bread, steak etc. Has hx of environmental allergies and asthma. Reports weight loss of 20 lbs in the past one year - although not sure if due to decreased appetite from RUQ pain vs dietary modulation. 12/2021: Patient underwent liver biopsy on 12/18. Consistent with autoimmune hepatitis as suspected, with grade 2-3 activity and stage 3-4 fibrosis. Reports persistent sharp pain since the biopsy, which has slowly been improving. Comes in accompanied by her . She is quite anxious about the pathology results, despite reassurance multiple times at biopsies do not show cancer, but brother inflammation secondary to autoimmune hepatitis. To recap, her father had history of cirrhosis and from complications. Reviewed the management plan in detail with the patient as well as her spouse. Her blood sugars are running high in the last 1 week between 300-400. Patient currently does not have an radio equipment repairer. She plans to reach out to her primary care provider about adjustment of her medications. She also has history of rheumatoid arthritis, used to be on methotrexate, but currently not on any therapy. Has not seen her provider Brie Trinh in 6 months. EGD and colonoscopy has already been scheduled for this February. 01/29/22: Patient presents today for follow-up 4 week follow-up. Unfortunately, labs were not done, therefore TPMT status is still unknown. I also am not aware of response to prednisone. Patient reports consistently high blood sugars above 300. She also describes symptoms of nausea, dizziness, she to anus, and leg swelling. Also continues to have intermittent right upper quadrant discomfort. 02/26/22: Please see documentation from 02/23 re recent issues reviewed over phone call. In summary, patient is persistently having sugars above 350. She had a fasting blood sugar 489 on 02/23. In addition, also complain of whitish discoloration of her tongue associated with dysguesia and pain. Patient attributed these to her steroid therapy and stop taking her steroids for 3-4 days. She also had an episode of severe abdominal pain nausea and vomiting waking her up from night. Patient reports that blood sugars are now better controlled with up titration of insulin, and dietary discretion. Fasting blood sugar today was 228 , which is still high, but much better than 489. She also started applying coconut oil to her tongue, which has calmed down the burning sensation. Patient also reports a fall that she had yesterday, as she was going downstairs. She denies any presyncope or loss of consciousness, but also does not remember tripping. She is not entirely sure how she fell, but took a significant hit on her right side of the body, with bruising over her right arm and right leg. She tells me she has been noticing that she bruises more easily now. She reports taking azathioprine 100 mg once daily. Has resumed her prednisone taper 30 mg once daily. Has 3-4 days still left, consistent with her report of previously skipping medication. She was counseled again on not stopping her prednisone suddenly, to avoid withdrawal. She was also encouraged to keep compliance was a typewritten for continued remission of autoimmune hepatitis. She has already communicated with her trolley operator and has been started on alendronate for osteopenia. EGD/colo 03/25/22: Tortuous esophagus, otherwise normal mucosa ?? Portal hypertensive gastropathy vs H pylori gastritis (biopsy) Abnormal duodenal mucosa (biopsy) Poor prep colon. Exam inadequate for CRC screening. External hemorrhoids Path: Duodenum, biopsy: Duodenal mucosa with preserved villous architecture and focally increased intraepithelial lymphocytes (see comment). Stomach, random, biopsy: Gastric antral and body mucosa with mild to moderate chronic active gastritis and few Helicobacter pylori organisms identified; negative for intestinal metaplasia and dysplasia. 04/07/2022: Reports that had 2 more episodes of abdominal discomfort, nausea vomiting and diarrhea. First in early February, and then again in late February. She reviewed the side effects of all of her recently started medication, and since then has stopped her azathioprine, alendronate, rosuvastatin. She does tell me that during these episodes, her sugars were very high, and her Glucometer just showed that the sugars were >500 but she does not know the exact number. Currently, main complaint is occasional fleeting spasm like pain and left lower quadrant the last 30 seconds, specially on movements. EGD and colonoscopy findings reviewed. Will be booked for another colonoscopy later this year due to inadequate prep. 04/16/22: From phone call discussion: Reviewed results with Cece - LFTs have started to go up as well. Labs reviewed from 04/09, no pancreatitis. Likely has drug related intolerance, which was confirmed on re-exposure (and as expected, sx onset was fairly quick on re-exposure). Counseled that can occur in almost 5% pts. Will book for office visit to review alternatives 6 MP, MMF.. 04/20/22: No further episodes of abd pain, N,V since discontinuation of Azathioprine. Reviewed alternatives including 6-mercaptoputine and mycophenolate. Given excellent response to azathioprine and non-allergic intolerance to side effects, will first trial 6MP. Pt was counseled re dosing, monitoring and possible side effects. 05/21/22: No gastrointestinal complaints today. Has been tolerating her mercaptopurine 50mg without any issues. Does not report any abdominal pain, nausea, vomiting, diarrhea. Prednisone taper continues on 20mg dosing which she will complete tomorrow. Sugars remain high often above 300. Looking forward to her appointment with radio equipment repairer next month. She also had an eye exam last week and does not report any abnormalities. Labs from last week have already been reviewed with the patient over the phone, but to recap, LFTs have all normalized and IgG is also now back to normal. 06/09/22:No acute GI issues. Down to prednisone 15mg a nd has a week left . Tolerating 6-MP 50mg once daily. L abs reviewed which were most signifi cant for BG >400. Insulin increased by her PCP. Also s eeing Endocrinolog y later this month . Supplements have already been sent for low Vit D. Pt has been quite st ressed recently du e to her mom's delma lt. Was recently diagnosed with dem briana. She plans t o take care of her at home but will likely have to mov e to a different p lace with more spa ce. Very overwhelm ed with her parent 's declining cogni tive dysfunction. 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 10/15/22: Has a lot on her plate these days. Brother suddenly in June - waiting on autopsy results still. Was very depressed during the grieving period and was not taking her medications for most of the June including 6-MP. Then recently in August also possibly tore her L meniscus - awaiting MRI through ortho. Postponed her visit with me initially scheduled 09/13 to today for that reason as well. Has also not scheduled her colo yet as has very limited mobility. In terms of AIH therapy, finished her pred taper in July. Resumed taking 6-MP towards the end of July. Due for labs. Sugars are now better controlled but having more lows now. Tells me CGM was not covered by her insurance. Sees Dr López. 11/30/22: Visit requested by the pt to discuss her medical therapy with the daughter as well. Daughter Milena was on phone for the entire encounter. Pt currently reports increased fatigue, hunger, weight gain of 6-8 lbs in the last one month and uncontrolled BGs. Has been on prednisone, this is week 2 and she has started the taper. Current dose 30mg. Reports daily 6-MP now. US Abd 11/15/22: Enlarged slightly echogenic liver with question mild cirrhotic changes. Increasing intra and extrahepatic biliary duct dilatation. Post cholecystectomy. Slightly enlarged spleen. 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 Mother No problems noted. Maternal Aunt Breast cancer Other Mental health problem Substance abuse Social History Household Members: None Housing: House Alcohol intake: never Patient Tobacco Use Status: Former Tobacco user Quit Date: 10+ yrs ago Tobacco use type: Cigarette Cigarettes Per Day: 7 Years Smoked: 6 e-Cigarette/Vaping Use: Never Used Second Hand Smoke Exposure: No Advance Directives Date on File: 07/15/20 service: No Current occupational status: disabled Current occupation: right hand Cognitive needs: No Hearing needs: No Vision needs: No Female Reproductive History Menstrual Age of Menarche: 12 Review of Systems Const All systems reviewed & are unremarkable except as noted in HPI and below Physical Exam Vital Signs: Last Vital Signs Pulse 64 11/30/22 12:40 BP 120/56 L 11/30/22 12:40 BMI result Body Mass Index 30.7 Gen appear: No acute distress, well nourished HEENT: no icterus, no cervical lymphadenopathy Chest: No overt resp distress CVS: S1/S2, regular Abd: soft, nontender, nondistended Psych: Stable affect, answering questions appropriately Neuro: A/Ox3 noted to move all extremities spontaneously Ext: no peripheral edema Assessment & Plan Assessment & Plan (1) Autoimmune hepatitis: Code(s): K75.4 - Autoimmune hepatitis (2) Low vitamin D level: Code(s): R79.89 - Other specified abnormal findings of blood chemistry (3) Osteopenia: Code(s): M85.80 - Other specified disorders of bone density and structure, unspecified site (4) Encounter for screening colonoscopy: Code(s): Z12.11 - Encounter for screening for malignant neoplasm of colon (5) Dilated bile duct: Code(s): K83.8 - Other specified diseases of biliary tract Plan Patient has biopsy-proven autoimmune hepatitis. Unable to tolerate Azathioprine due to side effects (abd pain, N,V - lipase normal). Sx returned within a few hours on rechallenge. Started on 6-MP in Mar 2022. Has been tolerating it without any side effects so far. White count WNL. Had periods of nonadherence between June and August of this year and therefore repeat labs were ordered which showed elevated IgG > 2000, with normal LFTs. Started on Prednisone 40 x1 week followed by taper. Currently on 30 mg dose. She is also scheduled for MRI to further investigate dilated bile ducts. Check liver panel and IgG in 2 weeks (i.e before completing the taper) Continue 6-MP 50mg. MRI Abd liver protocol pending Osteopenia: - Alendronate tx as per endocrine/Rheum. Pt was advised to reconnect with Rheum office as lost to follow up. - Cont Vit D as long as taking prednisone Transplant candidacy: - Advanced fibrosis/early cirrhosis without any CSPH. Updated MELD labs ordered. CRC screening: - Incomplete colo 02/2022 due to poor prep. Scheduled for a repeat next month. - Advised miralax BID x 3 days and to take CLD x 1.5 days before the colo. Follow-up after colo. Orders: Orders Liver Panel 2 Weeks R74.8 - Abnormal levels of other serum enzymes Immunoglobulin G 2 Weeks R74.8 - Abnormal levels of other serum enzymes Complete Blood Count no Diff 2 Weeks K75.4 - Autoimmune hepatitis Prothrombin Time INR 2 Weeks K75.4 - Autoimmune hepatitis Basic Metabolic Panel 2 Weeks K75.4 - Autoimmune hepatitis Coding Level of Care Code Est Pt Level 5 (18223) Diagnoses Autoimmune hepatitis K75.4 Low vitamin D level R79.89 Osteopenia M85.80 Encounter for screening colonoscopy Z12.11 Dilated bile duct K83.8
[2022-11-30 12:40] VITALS: BP 120/56; PULSE 64; BMI 30.7
== END 2022-11-30 13:13 | disposition home or self-care (01) ==
PROVIDERS: PCP Internal Medicine; Visit Provider Internal Medicine
DX: K75.4 Autoimmune hepatitis (principal); R79.89 Other specified abnormal findings of blood chemistry; M85.80 Other specified disorders of bone density and structure, unspecified site; K83.8 Other specified diseases of biliary tract; Z12.11 Encounter for screening for malignant neoplasm of colon
CPT/HCPCS: 99214

== ENCOUNTER → 2022-11-30 12:36 | Outpatient (BNVA) | payer MEDICARE, MEDICAID, SELFPAY | PROVIDERS: PCP Internal Medicine; Visit Provider Internal Medicine | DX: K75.4 Autoimmune hepatitis (principal); E55.9 Vitamin D deficiency, unspecified; M85.80 Other specified disorders of bone density and structure, unspecified site; K83.8 Other specified diseases of biliary tract | CPT/HCPCS: 99212 ==

== ENCOUNTER 2022-12-13 14:15 | Outpatient (REF) | payer MEDICARE, MEDICAID, SELFPAY ==
[2022-12-13 14:41] LABS: Hemoglobin 13.1 g/dl (12.0-16.0); Mean Corpuscular HGB Conc 33.6 g/dl (31.0-35.0); Mean Corpuscular Hemoglobin 29.9 pg (27.0-33.0); Mean Platelet Volume 8.7 fL (9.4-12.3); Platelet Count 201 X10*3/uL (160-400); Red Blood Count 4.38 X10*6/uL (4.20-5.50); Red Cell Distribution Width 13.3 % (11.0-16.0); White Blood Count 4.8 X10*3/uL (4.8-10.8)
[2022-12-13 14:48] LABS: INTERNATIONAL NORM RATIO 0.9 (0.9-1.1); Prothrombin Time 10.6 SEC (11.1-13.3)
[2022-12-13 15:16] LABS: Alanine Aminotransferase 18 U/L (0-31); Albumin Level 4.1 g/dL (3.5-5.0); Alkaline Phosphatase 79 U/L (39-117); Anion Gap 10 (12-20); Aspartate Amino Transferase 10 U/L (5-31); Bilirubin Direct 0.3 mg/dL (0.0-0.5); Bilirubin Total 0.7 mg/dL (0.0-1.0); Blood Urea Nitrogen 15 mg/dL (9-16); Calcium 9.7 mg/dL (8.4-10.2); Carbon Dioxide 29 mmol/L (22-29); Chloride 101 mmol/L (96-108); Estimated Glomerular Filt Rate > 60; Glucose Random 190 mg/dL (60-115); Potassium 3.8 mmol/L (3.3-5.1); Sodium 136 mmol/L (135-145); Total Protein 7.7 g/dL (6.5-8.0)
[2022-12-15 21:53] LABS: Immunoglobulin G 1797 mg/dL (600-1640)
== END 2022-12-13 14:16 | disposition home or self-care (01) ==
LOC: HO.LAB 14:15
PROVIDERS: PCP Internal Medicine; Visit Provider Internal Medicine
DX: R74.8 Abnormal levels of other serum enzymes (principal); K75.4 Autoimmune hepatitis
CPT/HCPCS: 36415; 80048; 80076; 82784; 85027; 85610

== ENCOUNTER 2022-12-15 13:13 | Outpatient (AMB) | payer MEDICARE, MEDICAID, SELFPAY ==
--- NOTE | 2022-12-15 13:16 | MHC.OFFVIS ---
Intake Intake Visit Reasons: ov- TEAR OF MEDIAL MENISCUS Intake Note: Cece 57 yr old female presents today as a new patient to establish care with Dr. Doyle. The patient presents with complaints of progressively worsening left knee pain and giving way. She states that she injured her knee approximately 1 year ago. She twisted her knee and had acute onset of pain. She re-aggravated her knee several weeks ago when she bent down and once again twisted her knee. She has done physical therapy for 12 weeks over the last 6 months which aggravated her symptoms. She has also had injections in the past which gave her minimal relief. She has tried Tylenol, oxycodone and anti-inflammatory medicines which gave her minimal relief. She has been wearing a knee brace because of the mechanical symptoms. She states that her left knee will give out several times per day. Allergies gadobutrol [From GADAVIST] Allergy (Severe, Verified 12/15/22 13:24) ANAPHYLAXIS hydroxychloroquine [Plaquenil] Allergy (Intermediate, Verified 12/15/22 13:24) rash,facial swelling Iodinated Contrast Media [CONTRAST, IV] Allergy (Intermediate, Verified 12/15/22 13:24) DIFF BREATHING levofloxacin [From LEVAQUIN] Allergy (Intermediate, Verified 12/15/22 13:24) ITCHY RASH pregabalin [From LYRICA] Allergy (Intermediate, Verified 12/15/22 13:24) STOMACH UPSET, Swelling tramadol Allergy (Intermediate, Verified 12/15/22 13:24) abdominal pain insulin aspart [From Novolog U-100 Insulin aspart] Adverse Reaction (Unknown, Verified 12/15/22 13:24) chills, shaking, sweating, weakness and tachycardia azathioprine Adverse Reaction (Verified 12/15/22 13:24) Nausea and Vomiting Statins Support Allergy (Intermediate, Uncoded 12/15/22 13:24) transaminitis MRI contrast (gadolinium) Adverse Reaction (Unknown, Uncoded 12/15/22 13:24) anaphylaxis Medication List - Last Reconciled 12/15/22 by Dominick Doyle MD albuterol sulfate 90 mcg/actuation 2 puffs inhalation Q6H PRN 30 days alendronate 70 mg PO QWEEK bisacodyl 5 mg PO BEDTIME blood sugar diagnostic (FreeStyle Lite Strips) As directed 3 times a day blood-glucose meter (FreeStyle Lite Meter kit) As directed cholecalciferol (vitamin D3) 50 mcg PO DAILY 90 days flash glucose scanning reader (FreeStyle Liza 2 Warren) As directed flash glucose sensor (FreeStyle Liza 2 Sensor kit) As directed -change every 14 days fluconazole 150 mg PO Q3D 2 doses folic acid 1 mg PO DAILY insulin degludec (Tresiba FlexTouch U-200 insulin) 150 units (0.75 mL) subcut BEDTIME 30 days insulin lispro (Humalog KwikPen (U-100) Insulin) 10 units (0.1 mL) subcut TID 30 days lancets (FreeStyle Lancets) Use 1 lancet three times a day levothyroxine 200 mcg PO DAILY 90 days loratadine 10 mg PO DAILY 90 days mercaptopurine 50 mg PO DAILY omeprazole 40 mg PO DAILY ondansetron HCl 8 mg PO DAILY PRN 30 days oxycodone 10 mg PO Q8H PRN 30 days pen needle, diabetic (BD Ultra-Fine Alivia Pen Needle) As directed 4x/day prednisone Take 4 tabs x 1 week, then 3 tabs x 1 week, then 2 tabs x 1 weeks and then 1 tab x 1 week. By mouth. Please take vitamin D supplement with this. rosuvastatin 10 mg PO DAILY 90 days tiotropium-olodaterol 2.5-2.5 mcg/actuation (Stiolto Respimat) 2 puffs inhalation DAILY 30 days zolpidem 10 mg PO BEDTIME 30 days [facility] Medical History Abdominal pain Autoimmune thyroiditis Bilateral hand numbness Breast mass, right Chronic constipation Chronic idiopathic constipation Diabetes type 2, uncontrolled Diabetic polyneuropathy associated with type 2 diabetes mellitus Dyslipidemia Fibromyalgia GERD (gastroesophageal reflux disease) Hand numbness Hypoactive bowel sounds Inflammatory arthritis Insomnia long-term (current) use of insulin Low vitamin D level Lung cyst Neck pain Osteoarthritis of hand, left Post-surgical hypothyroidism Weight loss Surgical History History of esophagogastroduodenoscopy (EGD) History of hysterectomy History of liver biopsy History of thyroidectomy, total Hx of colonoscopy (1998) Hx of removal of cyst Family History Father Status post liver transplant, biliary anastomotic size mismatch Brother No problems noted. Mother No problems noted. Maternal Aunt Breast cancer Other Mental health problem Substance abuse Social History Household Members: None Housing: House Alcohol intake: never Patient Tobacco Use Status: Former Tobacco user Quit Date: 10+ yrs ago Tobacco use type: Cigarette Cigarettes Per Day: 7 Years Smoked: 6 e-Cigarette/Vaping Use: Never Used Second Hand Smoke Exposure: No Advance Directives Date on File: 07/15/20 service: No Current occupational status: disabled Current occupation: right hand Cognitive needs: No Hearing needs: No Vision needs: No Female Reproductive History Menstrual Age of Menarche: 12 Physical Exam Const Other: Well-nourished well-developed very friendly female awake alert and oriented x3 in no acute distress Lungs clear to auscultation bilaterally with symmetric expansion Cardiovascular exam regular rate and rhythm Abdominal exam is soft nontender nondistended Extrem Other: Bilateral lower extremity examination shows good capillary refill, no skin lesions noted, normal sensation light touch Left knee examination shows a mild effusion, minimal crepitus with range of motion, tenderness along her medial and lateral joint lines, positive Tino's test, no instability Results Reviewed Results Reviewed: X-rays of the patient's left knee show mild diffuse joint space narrowing, no acute bony abnormalities MRI of the patient's left knee shows mild diffuse degenerative changes as well as tearing of her medial and lateral menisci, no acute bony abnormalities Assessment & Plan Assessment & Plan (1) Tear of medial meniscus of left knee: Code(s): S83.242A - Other tear of medial meniscus, current injury, left knee, initial encounter Plan Ms. Conley presents with progressively worsening left knee pain and mechanical symptoms due to tearing of her medial and lateral menisci. I had a lengthy discussion with the patient regarding the treatment options. At this point she has failed continued non operative treatments. The risks and benefits of left knee arthroscopic surgery were discussed at length with the patient. Surgery will most likely involve left knee arthroscopic partial medial and lateral meniscectomies. The patient wishes to proceed with surgery. She does understand that she may not get 100% relief of her symptoms depending on the severity of her degenerative changes. The patient will contact my office to pick a surgery date. She will follow-up as instructed. Feel free to call me at any time should questions regarding her orthopedic management arise. I spent 22 minutes in reviewing the patient's records and imaging studies, seeing the patient and documenting in the medical record. Coding Level of Care Code Est Pt Level 2 (43464) Diagnoses Tear of medial meniscus of left knee S83.242A
== END 2022-12-15 14:03 | disposition home or self-care (01) ==
PROVIDERS: PCP Internal Medicine; Visit Provider Orthopaedic Surgery
DX: S83.242A Other tear of medial meniscus, current injury, left knee, initial encounter (principal)
CPT/HCPCS: 99212

== ENCOUNTER → 2022-12-15 13:13 | Outpatient (BNVA) | payer MEDICARE, MEDICAID, SELFPAY | PROVIDERS: PCP Internal Medicine; Visit Provider Orthopaedic Surgery | DX: S83.242A Other tear of medial meniscus, current injury, left knee, initial encounter (principal) | CPT/HCPCS: 99212 ==

== ENCOUNTER 2022-12-21 15:59 | Outpatient (REF) | payer MEDICARE, MEDICAID, SELFPAY ==
--- NOTE | ~2022-12-21 | CT_ITS ---
EXAMINATION: CT HEAD WITHOUT CONTRAST CLINICAL INFORMATION: Unspecified ptosis of right eyelid. COMPARISON: 01/17/2019 MRI brain. TECHNIQUE: Contiguous axial imaging was performed from the skull base to vertex without intravenous administration of contrast. This CT examination was performed using dose optimization techniques as appropriate, variously including the following: *Automated exposure control *Adjustment of mA and/or kV according to patient size (this includes techniques or standardized protocols for targeted exams where dose is matched to indication/reason for exam; i.e. extremities or head) *Use of iterative reconstruction technique DLP: 727 mGy-cm FINDINGS: BRAIN VOLUME: Within normal limits within the limitations of qualitative assessment. STRUCTURAL: No malformations. BRAIN AND MENINGES: The brain is normal in morphology and attenuation. Le-white matter interface is preserved. No acute infarct, hemorrhage, extra-axial fluid collection, space-occupying process or mass effect are identified. Midline structures appear intact. VENTRICLES AND SUBARACHNOID SPACES: The ventricular system and subarachnoid spaces are within normal range; there is no hydrocephalus. ORBITAL STRUCTURES: Grossly unremarkable within the limitations of the study. OSSEOUS STRUCTURES, SINUSES/MASTOIDS, EXTRACRANIAL SOFT TISSUES: Unremarkable. CT/CT head/brain wo IV con IMPRESSION: Normal noncontrast CT of the brain.
== END 2022-12-21 16:00 | disposition home or self-care (01) ==
LOC: HO.CT 15:59
PROVIDERS: PCP Internal Medicine; Visit Provider Internal Medicine
DX: H02.401 Unspecified ptosis of right eyelid (principal)
CPT/HCPCS: 70450

== ENCOUNTER 2023-01-04 12:26 | Outpatient (REF) | payer MEDICARE, MEDICAID, SELFPAY | END 2023-01-04 12:27 | disposition home or self-care (01) | LOC: HO.HMGCX 12:26 | PROVIDERS: PCP Internal Medicine; Referring Provider Internal Medicine; Visit Provider Orthopaedic Surgery | DX: S83.91XA Sprain of unspecified site of right knee, initial encounter (principal); S83.242A Other tear of medial meniscus, current injury, left knee, initial encounter | CPT/HCPCS: 73564; 99212 ==

== ENCOUNTER 2023-01-04 12:26 | Outpatient (AMB) | payer MEDICARE, MEDICAID, SELFPAY ==
--- NOTE | 2023-01-04 12:39 | MHC.OFFVIS ---
Intake Vital Signs 01/04/23 12:45 Height 5 ft 7 in Weight 196 lb BMI 30.7 Intake Visit Reasons: PreOp-Lt Knee , DOS 01/21/23 Intake Note: Cece 57 yr old female presents with complaints of progressively worsening left knee pain and giving way. She states that she injured her knee approximately 1 year ago. She twisted her knee and had acute onset of pain. She reaggravated her knee several weeks ago when she bent down and once again twisted her knee. She has done physical therapy for 12 weeks over the last 6 months which aggravated her symptoms. She has also had injections in the past which gave her minimal relief. She has tried Tylenol, oxycodone and anti-inflammatory medicines which gave her minimal relief. She has been wearing a knee brace because of the mechanical symptoms. She states that her left knee will give out several times per day. Allergies gadobutrol [From GADAVIST] Allergy (Severe, Verified 01/04/23 12:44) ANAPHYLAXIS hydroxychloroquine [Plaquenil] Allergy (Intermediate, Verified 01/04/23 12:44) rash,facial swelling Iodinated Contrast Media [CONTRAST, IV] Allergy (Intermediate, Verified 01/04/23 12:44) DIFF BREATHING levofloxacin [From LEVAQUIN] Allergy (Intermediate, Verified 01/04/23 12:44) ITCHY RASH pregabalin [From LYRICA] Allergy (Intermediate, Verified 01/04/23 12:44) STOMACH UPSET, Swelling tramadol Allergy (Intermediate, Verified 01/04/23 12:44) abdominal pain insulin aspart [From Novolog U-100 Insulin aspart] Adverse Reaction (Unknown, Verified 01/04/23 12:44) chills, shaking, sweating, weakness and tachycardia azathioprine Adverse Reaction (Verified 01/04/23 12:44) Nausea and Vomiting Statins Support Allergy (Intermediate, Uncoded 01/04/23 12:44) transaminitis MRI contrast (gadolinium) Adverse Reaction (Unknown, Uncoded 01/04/23 12:44) anaphylaxis Medication List - Last Reconciled 01/04/23 by Dominick Doyle MD albuterol sulfate 90 mcg/actuation 2 puffs inhalation Q6H PRN 30 days alendronate 70 mg PO QWEEK bisacodyl 5 mg PO BEDTIME blood sugar diagnostic (FreeStyle Lite Strips) As directed 3 times a day blood-glucose meter (FreeStyle Lite Meter kit) As directed cholecalciferol (vitamin D3) 50 mcg PO DAILY 90 days flash glucose scanning reader (FreeStyle Liza 2 Ava) As directed flash glucose sensor (FreeStyle Liza 2 Sensor kit) As directed -change every 14 days folic acid 1 mg PO DAILY insulin degludec (Tresiba FlexTouch U-200 insulin) 150 units (0.75 mL) subcut BEDTIME 30 days insulin lispro (Humalog KwikPen (U-100) Insulin) 10 units (0.1 mL) subcut TID 30 days lancets (FreeStyle Lancets) Use 1 lancet three times a day levothyroxine 200 mcg PO DAILY 90 days loratadine 10 mg PO DAILY 90 days mercaptopurine 50 mg PO DAILY omeprazole 40 mg PO DAILY ondansetron HCl 8 mg PO DAILY PRN 30 days oxycodone 10 mg PO Q8H PRN 30 days peg 3350-electrolytes 236-22.74-6.74 -5.86 gram (Golytely) 240 mL PO Q10M pen needle, diabetic (BD Ultra-Fine Alivia Pen Needle) As directed 4x/day rosuvastatin 10 mg PO DAILY 90 days tiotropium-olodaterol 2.5-2.5 mcg/actuation (Stiolto Respimat) 2 puffs inhalation DAILY 30 days zolpidem 10 mg PO BEDTIME 30 days PFS Medical History Abdominal pain Autoimmune thyroiditis Bilateral hand numbness Breast mass, right Chronic constipation Chronic idiopathic constipation Diabetes type 2, uncontrolled Diabetic polyneuropathy associated with type 2 diabetes mellitus Dyslipidemia Fibromyalgia GERD (gastroesophageal reflux disease) Hand numbness Hypoactive bowel sounds Inflammatory arthritis Insomnia FDC (current) use of insulin Low vitamin D level Lung cyst Neck pain Osteoarthritis of hand, left Post-surgical hypothyroidism Weight loss Surgical History History of liver biopsy Hx of removal of cyst History of hysterectomy History of thyroidectomy, total History of esophagogastroduodenoscopy (EGD) Hx of colonoscopy (1998) Family History Father Status post liver transplant, biliary anastomotic size mismatch Brother No problems noted. Mother No problems noted. Maternal Aunt Breast cancer Other Mental health problem Substance abuse Social History Household Members: None Housing: House Alcohol intake: never Patient Tobacco Use Status: Former Tobacco user Quit Date: 10+ yrs ago Tobacco use type: Cigarette Cigarettes Per Day: 7 Years Smoked: 6 e-Cigarette/Vaping Use: Never Used Second Hand Smoke Exposure: No Advance Directives Date on File: 07/15/20 service: No Current occupational status: disabled Current occupation: right hand Cognitive needs: No Hearing needs: No Vision needs: No Female Reproductive History Menstrual Age of Menarche: 12 Physical Exam Vital Signs: BMI result Body Mass Index 30.7 Const Other: Well-nourished well-developed very friendly female awake alert and oriented x3 in no acute distress Lungs - clear to auscultation bilaterally with symmetric expansion Cardiovascular exam - regular rate and rhythm Abdominal exam - soft nontender nondistended Extrem Other: Bilateral lower extremity examination shows good capillary refill, no skin lesions noted, normal sensation light touch Left knee examination shows a minimal effusion, minimal crepitus with range of motion, tenderness along her medial and lateral joint lines, positive Tino's test, no instability Results Reviewed Results Reviewed: X-rays of the patient's left knee show mild diffuse joint space narrowing, no acute bony abnormalities MRI of the patient's left knee shows mild diffuse degenerative changes as well as a tear of her medial and lateral meniscus, thickened plica Assessment & Plan Assessment & Plan (1) Tear of medial meniscus of left knee: Code(s): S83.242A - Other tear of medial meniscus, current injury, left knee, initial encounter Plan Ms. Conley presents with left knee pain and mechanical symptoms due to tearing of her medial and lateral menisci as well as plica syndrome. I had a lengthy discussion with the patient regarding the treatment options. At this point she has failed continued non operative treatments. The risks and benefits of left knee arthroscopic surgery were discussed at length with the patient. The patient wishes to proceed. She does understand that she may not get 100% relief of her symptoms depending on the severity of her degenerative changes. The patient has oxycodone at home for her postoperative pain. I will see her back 2-3 weeks following her surgery for her 1st postoperative appointment. Patient follow-up as instructed. Feel free to call me at any time should questions regarding her orthopedic management arise. I spent 22 minutes in reviewing the patient's records and imaging studies, seeing the patient and documenting in the medical record. Coding Level of Care Code Est Pt Level 2 (27873) Diagnoses Tear of medial meniscus of left knee S83.242A
[2023-01-04 12:45] VITALS: BMI 30.7
== END 2023-01-04 12:51 | disposition home or self-care (01) ==
PROVIDERS: PCP Internal Medicine; Visit Provider Orthopaedic Surgery
DX: S83.242A Other tear of medial meniscus, current injury, left knee, initial encounter (principal)
CPT/HCPCS: 99212

== ENCOUNTER 2023-01-04 15:23 | Outpatient (AMB) | payer MEDICARE, MEDICAID, SELFPAY ==
--- NOTE | 2023-01-04 16:25 | MHC.OFFWIV ---
Intake Vital Signs 01/04/23 16:27 Weight 214 lb BP 110/62 Blood Pressure Location Lt brachial Position Sitting Pulse 82 Pulse Source Pulse Oximeter Pulse Oximetry (%) 97 Oxygen Delivery Method Room Air Intake Visit Reasons: EST/ right knee pain (lobby) Intake Note: Patient here for right knee swelling and pain which has been bothersome for about 2 weeks. She states she is having difficulties standing from sitting. Patient Tobacco Use Status: Former Tobacco user Quit Date: 10+ yrs ago Allergies gadobutrol [From GADAVIST] Allergy (Severe, Verified 01/04/23 16:28) ANAPHYLAXIS hydroxychloroquine [Plaquenil] Allergy (Intermediate, Verified 01/04/23 16:28) rash,facial swelling Iodinated Contrast Media [CONTRAST, IV] Allergy (Intermediate, Verified 01/04/23 16:28) DIFF BREATHING levofloxacin [From LEVAQUIN] Allergy (Intermediate, Verified 01/04/23 16:28) ITCHY RASH pregabalin [From LYRICA] Allergy (Intermediate, Verified 01/04/23 16:28) STOMACH UPSET, Swelling tramadol Allergy (Intermediate, Verified 01/04/23 16:28) abdominal pain insulin aspart [From Novolog U-100 Insulin aspart] Adverse Reaction (Unknown, Verified 01/04/23 16:28) chills, shaking, sweating, weakness and tachycardia azathioprine Adverse Reaction (Verified 01/04/23 16:28) Nausea and Vomiting Statins Support Allergy (Intermediate, Uncoded 01/04/23 16:28) transaminitis MRI contrast (gadolinium) Adverse Reaction (Unknown, Uncoded 01/04/23 16:28) anaphylaxis Do you need a note to return to daycare/school/sports/work: No HPI EST/ right knee pain (lobby) HPI Details 57-year-old female presents to the office for a sick visit. Patient is complaining of pain in the right knee for the past 2 weeks. No history of fall or injury. 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 Mother No problems noted. Maternal Aunt Breast cancer Other Mental health problem Substance abuse Social History Household Members: None Housing: House Alcohol intake: never Patient Tobacco Use Status: Former Tobacco user Quit Date: 10+ yrs ago Tobacco use type: Cigarette Cigarettes Per Day: 7 Years Smoked: 6 e-Cigarette/Vaping Use: Never Used Second Hand Smoke Exposure: No Advance Directives Date on File: 07/15/20 service: No Current occupational status: disabled Current occupation: right hand Cognitive needs: No Hearing needs: No Vision needs: No Female Reproductive History Menstrual Age of Menarche: 12 Physical Exam Vital Signs: Last Vital Signs Pulse 82 01/04/23 16:27 BP 110/62 01/04/23 16:27 Pulse Ox 97 01/04/23 16:27 Oxygen Delivery Method Room Air 01/04/23 16:27 Extrem Other: Right knee: Swollen along the joint line. Pain on flexion of the knee. Assessment & Plan Assessment & Plan (1) Sprain of right knee: Code(s): S83.91XA - Sprain of unspecified site of right knee, initial encounter Plan X-ray images personally reviewed by me. Effusion is seen. Meloxicam called in. Knee brace supplied. If symptoms do not improve in a week to follow-up here. Coding Level of Care Code Est Pt Level 4 (06553) Diagnoses Sprain of right knee S83.91XA
[2023-01-04 16:27] VITALS: BP 110/62; PULSE 82; O2SAT 97
== END 2023-01-04 17:16 | disposition home or self-care (01) ==
PROVIDERS: PCP Internal Medicine; Visit Provider Internal Medicine
DX: S83.91XA Sprain of unspecified site of right knee, initial encounter (principal)
CPT/HCPCS: 99214

== ENCOUNTER 2023-01-06 09:51 | Day surgery (SDC) | payer MEDICARE, MEDICAID, SELFPAY ==
[2022-12-31 18:47] VITALS: BMI 31.6
--- NOTE | 2023-01-05 11:02 | HO.ANESPROP2 ---
HPI - Anesthesia Eval Consult details Narrative: 57yo F for Colonoscopy PMFSH Active Problems Active Problems: All Active Problems (Updated 01/04/23 @ 16:59 by Ethan Gonzales MD) Sprain of right knee (Acute) Dilated bile duct (Acute) Osteopenia (Acute) Left knee pain (Acute) Chest pain (Acute) Tear of medial meniscus of left knee (Acute) Left knee sprain (Acute) H. pylori infection (Acute) De Quervain's disease (radial styloid tenosynovitis) (Acute) Rotator cuff tendonitis (Acute) Left hand pain (Acute) Left wrist pain (Acute) Pulmonary emphysema (Acute) Dyspnea on exertion (Acute) Seronegative rheumatoid arthritis (Acute) Encounter for screening colonoscopy (Acute) Low back pain (Acute) Vaginal irritation (Acute) Yeast infection involving the vagina and surrounding area (Acute) Abscess (Acute) Abdominal pain (Acute) Goiter (Acute) Palpitations (Acute) Dysphagia (Acute) Elevated liver enzymes (Acute) Generalized pain (Acute) Autoimmune hepatitis (Acute) Autoimmune thyroiditis (Acute) Long-term current use of steroids (Acute) Oral thrush (Acute) Hyperlipidemia LDL goal <70 (Acute) Osteoarthritis of hand, left (Acute) Chronic constipation (Acute) Hypoactive bowel sounds (Acute) Hand numbness (Acute) Autoimmune thyroiditis (Acute) Abdominal pain (Acute) Inflammatory arthritis (Acute) Breast mass, right (Acute) Lung cyst (Acute) Bilateral hand numbness (Acute) Neck pain (Acute) Dyslipidemia (Acute) Post-surgical hypothyroidism (Acute) Diabetic polyneuropathy associated with type 2 diabetes mellitus (Acute) FDC (current) use of insulin (Acute) Chronic idiopathic constipation (Acute) Low vitamin D level (Acute) Weight loss (Acute) GERD (gastroesophageal reflux disease) (Acute) Diabetes type 2, uncontrolled (Acute) Fibromyalgia (Acute) Insomnia (Acute) Past Medical History Medical History Abdominal pain Autoimmune thyroiditis Bilateral hand numbness Breast mass, right Chronic constipation Chronic idiopathic constipation Diabetes type 2, uncontrolled Diabetic polyneuropathy associated with type 2 diabetes mellitus Dyslipidemia Fibromyalgia GERD (gastroesophageal reflux disease) Hand numbness Hypoactive bowel sounds Inflammatory arthritis 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 Mother No problems noted. Maternal Aunt Breast cancer Other Mental health problem Substance abuse Family history of problems with anesthesia: No Surgical History Surgical History History of liver biopsy Hx of removal of cyst History of hysterectomy History of thyroidectomy, total History of esophagogastroduodenoscopy (EGD) Hx of colonoscopy (1998) History of Problems with Anesthesia: No Social History Social History Household Members: None Housing: House Alcohol intake: never Patient Tobacco Use Status: Former Tobacco user Quit Date: 10+ yrs ago Tobacco use type: Cigarette Cigarettes Per Day: 7 Years Smoked: 6 e-Cigarette/Vaping Use: Never Used Second Hand Smoke Exposure: No Advance Directives Date on File: 07/15/20 service: No Current occupational status: disabled Current occupation: right hand Cognitive needs: No Hearing needs: No Vision needs: No Meds Allergies Allergy/AdvReac Type Severity Reaction Status Date / Time gadobutrol [From GADAVIST] Allergy Severe ANAPHYLAXIS Verified 01/04/23 16:28 hydroxychloroquine Allergy Intermediate rash,facial Verified 01/04/23 16:28 [Plaquenil] swelling Iodinated Contrast Media Allergy Intermediate DIFF Verified 01/04/23 16:28 [CONTRAST, IV] BREATHING levofloxacin [From LEVAQUIN] Allergy Intermediate ITCHY RASH Verified 01/04/23 16:28 pregabalin [From LYRICA] Allergy Intermediate STOMACH Verified 01/04/23 16:28 UPSET, Swelling tramadol Allergy Intermediate abdominal Verified 01/04/23 16:28 pain insulin aspart AdvReac Unknown chills, Verified 01/04/23 16:28 [From Novolog U-100 Insulin shaking, aspart] sweating, weakness and tachycardia azathioprine AdvReac Nausea and Verified 01/04/23 16:28 Vomiting Statins Support Allergy Intermediate transaminit Uncoded 01/04/23 16:28 is MRI contrast (gadolinium) AdvReac Unknown anaphylaxis Uncoded 01/04/23 16:28 Home Medications Medication Instructions Recorded Confirmed Last Taken Type bisacodyl 5 mg tablet,delayed 5 mg PO BEDTIME 03/04/22 01/04/23 Unknown History release alendronate 70 mg tablet 70 mg PO QWEEK 10/15/22 01/04/23 Unknown History omeprazole 20 mg capsule,delayed 40 mg PO DAILY 11/30/22 01/04/23 Unknown History release Exam Exam Date and Time: January 05, 2023 1102 Height,Weight and Vital Signs: Height 5 ft 7 in Weight 91.626 kg Pertinent Lab Results Pertinent Lab Results: Laboratory Tests 12/13/22 14:29 WBC 4.8 Hgb 13.1 Hct 39.0 Plt Count 201 Sodium 136 Potassium 3.8 Chloride 101 Carbon Dioxide 29 BUN 15 Creatinine 0.83 Assessment and Plan Assessment Anesthesia Assessment: Chart Reviewed Final Anesthetic Review Family History of Problems with Anesthesia: No History of Problems with Anesthesia: No
[2023-01-06 10:39] VITALS: PULSE 75; RESP 18; TEMP 36.1; O2SAT 99
[2023-01-06 11:26] LABS: Glucose, Whole Blood 84 mg/dL (60-115)
--- NOTE | 2023-01-06 11:45 | PC.NURSE ---
iv attempt x 2 abram rn and x1 Beti rn, without success, pt with fibromyalgia and knee pain and h/a. notified Dr. Alberts floor Anesthesiologist. to start iv. pt needs a break. cool cloth to f/h lights out. emotional support given for tearfulness
[2023-01-06] MEDS: Lactated Ringers 1,000 ML 100 ML IVCONT (11:56)
--- NOTE | 2023-01-06 13:03 | P.CONAN_ITS ---
[facility] Active Problems Active Problems: All Active Problems (Updated 01/04/23 @ 16:59 by Ethan Gonzales MD) Sprain of right knee (Acute) Dilated bile duct (Acute) Osteopenia (Acute) Left knee pain (Acute) Chest pain (Acute) Tear of medial meniscus of left knee (Acute) Left knee sprain (Acute) H. pylori infection (Acute) De Quervain's disease (radial styloid tenosynovitis) (Acute) Rotator cuff tendonitis (Acute) Left hand pain (Acute) Left wrist pain (Acute) Pulmonary emphysema (Acute) Dyspnea on exertion (Acute) Seronegative rheumatoid arthritis (Acute) Encounter for screening colonoscopy (Acute) Low back pain (Acute) Vaginal irritation (Acute) Yeast infection involving the vagina and surrounding area (Acute) Abscess (Acute) Abdominal pain (Acute) Goiter (Acute) Palpitations (Acute) Dysphagia (Acute) Elevated liver enzymes (Acute) Generalized pain (Acute) Autoimmune hepatitis (Acute) Autoimmune thyroiditis (Acute) Long-term current use of steroids (Acute) Oral thrush (Acute) Hyperlipidemia LDL goal <70 (Acute) Osteoarthritis of hand, left (Acute) Chronic constipation (Acute) Hypoactive bowel sounds (Acute) Hand numbness (Acute) Autoimmune thyroiditis (Acute) Abdominal pain (Acute) Inflammatory arthritis (Acute) Breast mass, right (Acute) Lung cyst (Acute) Bilateral hand numbness (Acute) Neck pain (Acute) Dyslipidemia (Acute) Post-surgical hypothyroidism (Acute) Diabetic polyneuropathy associated with type 2 diabetes mellitus (Acute) 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 (Acute) Chronic idiopathic constipation (Acute) Low vitamin D level (Acute) Weight loss (Acute) GERD (gastroesophageal reflux disease) (Acute) Diabetes type 2, uncontrolled (Acute) Fibromyalgia (Acute) Insomnia (Acute) Past Medical History Medical History Osteoarthritis of hand, left Chronic constipation Hypoactive bowel sounds Hand numbness Autoimmune thyroiditis Abdominal pain Inflammatory arthritis Breast mass, right Lung cyst Bilateral hand numbness Neck pain Dyslipidemia Post-surgical hypothyroidism Diabetic 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 Mother No problems noted. Maternal Aunt Breast cancer Other Mental health problem Substance abuse Family history of problems with anesthesia: No Surgical History Surgical History History of liver biopsy Hx of removal of cyst History of hysterectomy History of thyroidectomy, total History of esophagogastroduodenoscopy (EGD) Hx of colonoscopy (1998) History of Problems with Anesthesia: No Social History Social History Household Members: None Housing: House Alcohol intake: never Patient Tobacco Use Status: Former Tobacco user Quit Date: 10+ yrs ago Tobacco use type: Cigarette Cigarettes Per Day: 7 Years Smoked: 6 e-Cigarette/Vaping Use: Never Used Second Hand Smoke Exposure: No Use of substances other than those prescribed or required for medical reasons: No Are you DNR?: No Advance Directives: No Advance Directives Information Provided: Yes Advance Directives on File: No Advance Directives Date on File: 07/15/20 Recently lost weight without trying: No Nutrition Risks: No Nutritional Risk service: No Current occupational status: disabled Current occupation: right hand Cognitive needs: No Hearing needs: No Vision needs: No Meds Allergies Allergy/AdvReac Type Severity Reaction Status Date / Time gadobutrol [From GADAVIST] Allergy Severe ANAPHYLAXIS Verified 01/04/23 16:28 hydroxychloroquine Allergy Intermediate rash,facial Verified 01/04/23 16:28 [Plaquenil] swelling Iodinated Contrast Media Allergy Intermediate DIFF Verified 01/04/23 16:28 [CONTRAST, IV] BREATHING levofloxacin [From LEVAQUIN] Allergy Intermediate ITCHY RASH Verified 01/04/23 16:28 pregabalin [From LYRICA] Allergy Intermediate STOMACH Verified 01/04/23 16:28 UPSET, Swelling tramadol Allergy Intermediate abdominal Verified 01/04/23 16:28 pain insulin aspart AdvReac Unknown chills, Verified 01/04/23 16:28 [From Novolog U-100 Insulin shaking, aspart] sweating, weakness and tachycardia azathioprine AdvReac Nausea and Verified 01/04/23 16:28 Vomiting Statins Support Allergy Intermediate transaminit Uncoded 01/04/23 16:28 is MRI contrast (gadolinium) AdvReac Unknown anaphylaxis Uncoded 01/04/23 16:28 Active Medications: Current Medications Lactated Ringer's (Lr) 1,000 mls @ 100 mls/hr IVCONT .Q10H JEANETTE Last Admin: 01/06/23 11:56 Dose: 100 mls/hr Home Medications Medication Instructions Recorded Confirmed Last Taken Type bisacodyl 5 mg tablet,delayed 5 mg PO BEDTIME 03/04/22 01/04/23 Unknown History release alendronate 70 mg tablet 70 mg PO QWEEK 10/15/22 01/04/23 Unknown History omeprazole 20 mg capsule,delayed 40 mg PO DAILY 11/30/22 01/04/23 Unknown History release Exam Exam Date and Time: January 06, 2023 1303 Height,Weight and Vital Signs: Height 5 ft 7 in Weight 91.626 kg Last Vital Signs Temp 96.9 F 01/06/23 10:39 Pulse 75 01/06/23 10:39 Resp 18 01/06/23 10:39 Pulse Ox 99 01/06/23 10:39 O2 Del Method Room Air 01/06/23 10:39 Pertinent Lab Results Pertinent Lab Results: Laboratory Tests 01/06/23 11:18 POC Glucose 84 Airway TM Dist: >3cm Neck ROM: Full Heart: RRR Lungs: CTA Assessment and Plan Assessment Anesthesia Assessment: Anesthesia Plan Discussed Final Anesthetic Review Family History of Problems with Anesthesia: No History of Problems with Anesthesia: No ASA Class: III Final Preanesthetic Review: Meds/Allgs Chart Reviewed, Consent Obtained/Reviewed and Anes Risks/Benef Reviewed Patient Risk: Low Procedure Risk: Low Anesthetic Plan Anesthetic Plan: MAC: Disposition: Standard PACU
--- NOTE | 2023-01-06 13:21 | MHC.SHP ---
Pre-Procedural Eval Section A Date of Service: 01/06/23 Section B Chief Complaint: Encounter for screening for malignant neoplasm Details of Present Illness: Abdominal pain Autoimmune thyroiditis Bilateral hand numbness Breast mass, right Chronic constipation Chronic idiopathic constipation Diabetes type 2, uncontrolled Diabetic polyneuropathy associated with type 2 diabetes mellitus Dyslipidemia Fibromyalgia GERD (gastroesophageal reflux disease) Hand numbness Hypoactive bowel sounds Inflammatory arthritis Insomnia half-way (current) use of insulin Low vitamin D level Lung cyst Neck pain Osteoarthritis of hand, left Post-surgical hypothyroidism Weight loss Surgical History History of esophagogastroduodenoscopy (EGD) History of hysterectomy History of liver biopsy History of thyroidectomy, total Hx of colonoscopy (1998) Hx of removal of cyst Allergies: Allergies Allergy/AdvReac Type Severity Reaction Status Date / Time gadobutrol [From GADAVIST] Allergy Severe ANAPHYLAXIS Verified 01/04/23 16:28 hydroxychloroquine Allergy Intermediate rash,facial Verified 01/04/23 16:28 [Plaquenil] swelling Iodinated Contrast Media Allergy Intermediate DIFF Verified 01/04/23 16:28 [CONTRAST, IV] BREATHING levofloxacin [From LEVAQUIN] Allergy Intermediate ITCHY RASH Verified 01/04/23 16:28 pregabalin [From LYRICA] Allergy Intermediate STOMACH Verified 01/04/23 16:28 UPSET, Swelling tramadol Allergy Intermediate abdominal Verified 01/04/23 16:28 pain insulin aspart AdvReac Unknown chills, Verified 01/04/23 16:28 [From Novolog U-100 Insulin shaking, aspart] sweating, weakness and tachycardia azathioprine AdvReac Nausea and Verified 01/04/23 16:28 Vomiting Statins Support Allergy Intermediate transaminit Uncoded 01/04/23 16:28 is MRI contrast (gadolinium) AdvReac Unknown anaphylaxis Uncoded 01/04/23 16:28 Review of Systems Review of Systems Comment: Ten point ROS negative Exam Exam Comment: Gen appear: No acute distress HEENT: no icterus Chest: No overt resp distress Abd: soft, nontender, nondistended Psych: Stable affect, answering questions appropriately Neuro: A/Ox3 noted to move all extremities spontaneously Ext: no peripheral edema Plan Diagnosis/Plan: Unchanged I have reviewed the history and physical and performed a pertinent physical examination on my patient. No changes have occurred unless specified. Time Spent With Patient Time: Total time managing care of this patient today ____ minutes.
--- NOTE | 2023-01-06 13:22 | P.OP_ITS ---
Operative Note Operative Note Date of Service: 01/06/23 Narrative: Procedure: Colonoscopy Indication: Screening Endoscopist: Cindy Zheng MD Anesthesia Provider: Dr Ines Plunkett Anesthesia type: MAC Instrument: Olympus [id number]-[id number] Consent: Indication, risks vs benefits, and alternatives were discussed with the patient who gave written informed consent to proceed. EKG, pulse, pulse oximetry and blood pressure were monitored throughout the procedure. Please see anesthesia flowsheet. Procedure: The patient was brought to the procedure room and placed in the left lateral decubitus position. IV medications were administered by the anesthesia provider in attendance. A digital rectal exam was performed which was abnormal for external hemorrhoids. A distal attachment cap was affixed to the tip of the scope and the colonoscope was then inserted through the anus and advanced through the colon to the cecum at 80 cm. Mucosa was carefully examined under high definition white light as the instrument was slowly withdrawn in a retrograde panoramic fashion. Retroflexion was performed in rectum. The procedure was not difficult. There were no immediate obvious complications. The quality of the prep was BBPS: 1+2+1 = inadequate Withdrawal time 8 minutes. Limitations: Poor prep. Findings: Mucosa: Poor visualisation of cecum and descending colon due to copious amount of green opaque semi solid stool/residue which could not be suctioned despite extensively flushing the colon for almost 30 minutes. Protruding lesions: * 1 sessile polyp of size 3 mm in ascending colon. Cold snare polypectomy was performed. The polyp was completely removed and retrieved. * Medium internal hemorrhoids without stigmata of recent bleeding. Impression: 1. Poor prep colon 2. Total of 1 polyp removed 3. Internal and external hemorrhoids Recommendations: - Follow path results. - Repeat colonoscopy in 6-12 months due to inadequate prep. - Will reinforce following prep instructions again for next colo (which will be 3rd attempt)
[2023-01-06 14:21] VITALS: BP 97/55; PULSE 67; RESP 16; TEMP 36.1; O2SAT 97
[2023-01-06 14:36] VITALS: BP 102/51; PULSE 52; RESP 16; O2SAT 100
--- NOTE | 2023-01-06 14:36 | HO.POSTANES ---
Post Anesthesia Evaluation Post Anesthesia Evaluation Date of Service: 01/06/23 Vital Signs: Vital Signs Temp Pulse Resp BP Pulse Ox O2 Del Method 01/06/23 14:21 97 F 67 16 97/55 L 97 Room Air 01/06/23 10:39 96.9 F 75 18 99 Room Air Anesthesia: Monitored Mental Status: Awake Pain Control: Satisfactory Nausea/Vomiting: None Hydration: Adequate
--- NOTE | 2023-01-06 14:42 | PC.NURSE ---
patient resting comfortably, normal recovery, encouraged and provided applejuice tot support poc and snack provided as per disucssion with celina escalante
[2023-01-06 14:50] VITALS: BP 116/63; PULSE 56; RESP 16; TEMP 36.2; O2SAT 97
== END 2023-01-06 15:17 | disposition home or self-care (01) ==
PROVIDERS: PCP Internal Medicine; Visit Provider Internal Medicine
PROC: 0DJD8ZZ Inspection of Lower Intestinal Tract, Via Natural or Artificial Opening Endoscopic (ICD-10-PCS; CPT 45378; principal; 2023-01-06 12:10)
DX: Z12.11 Encounter for screening for malignant neoplasm of colon (principal); K63.5 Polyp of colon; K64.8 Other hemorrhoids; K64.4 Residual hemorrhoidal skin tags; K59.04 Chronic idiopathic constipation; K21.9 Gastro-esophageal reflux disease without esophagitis; R10.9 Unspecified abdominal pain; E06.3 Autoimmune thyroiditis; E11.42 Type 2 diabetes mellitus with diabetic polyneuropathy; E78.5 Hyperlipidemia, unspecified; M79.7 Fibromyalgia; Z79.4 Long term (current) use of insulin; Z79.899 Other long term (current) drug therapy; Z91.041 Radiographic dye allergy status; Z88.1 Allergy status to other antibiotic agents; Z88.8 Allergy status to other drugs, medicaments and biological substances; Z98.890 Other specified postprocedural states; Z87.891 Personal history of nicotine dependence
CPT/HCPCS: 45385; 82947; 88305

== ENCOUNTER → 2023-01-06 09:51 | Outpatient (BNV) | payer MEDICARE, MEDICAID, SELFPAY | PROVIDERS: PCP Internal Medicine; Visit Provider Internal Medicine | DX: Z12.11 Encounter for screening for malignant neoplasm of colon (principal); Z91.198 Patient's noncompliance with other medical treatment and regimen for other reason; D12.2 Benign neoplasm of ascending colon | CPT/HCPCS: 45385 ==

== ENCOUNTER 2023-01-19 15:25 | Outpatient (AMB) | payer MEDICARE, MEDICAID, SELFPAY ==
--- NOTE | 2023-01-19 15:26 | A.OFFVIS_ITS ---
Intake Intake Visit Reasons: Follow Up Colonoscopy Intake Note: Pt presents to the office today for a follow up colonoscopy. Pt states she is feeling well and denies N/V/D. Allergies gadobutrol [From GADAVIST] Allergy (Severe, Verified 01/19/23 15:26) ANAPHYLAXIS hydroxychloroquine [Plaquenil] Allergy (Intermediate, Verified 01/19/23 15:26) rash,facial swelling Iodinated Contrast Media [CONTRAST, IV] Allergy (Intermediate, Verified 01/19/23 15:26) DIFF BREATHING levofloxacin [From LEVAQUIN] Allergy (Intermediate, Verified 01/19/23 15:26) ITCHY RASH pregabalin [From LYRICA] Allergy (Intermediate, Verified 01/19/23 15:26) STOMACH UPSET, Swelling tramadol Allergy (Intermediate, Verified 01/19/23 15:26) abdominal pain azathioprine Adverse Reaction (Intermediate, Verified 01/19/23 15:26) Nausea and Vomiting insulin aspart [From Novolog U-100 Insulin aspart] Adverse Reaction (Intermediate, Verified 01/19/23 15:26) chills, shaking, sweating, weakness and tachycardia Statins Support Allergy (Intermediate, Uncoded 01/19/23 15:26) transaminitis MRI contrast (gadolinium) Adverse Reaction (Severe, Uncoded 01/19/23 15:26) anaphylaxis HPI HPI Comments History of Present Illness Details This is a 56-year-old female past medical history of fibromyalgia, H pylori gastritis, who is following up for autoimmune hepatitis (with grade 2-3 activity and stage 3-4 fibrosis biopsy 11/2021) Recap: 10/2021 Seen for intermittent RUQ pain and elevated LFTs. Workup so far has ruled out hepatitis-B and hepatitis-C. KIRA screen was negative. Celiac serology was negative for tissue transglutaminase IgA. ASMA was positive at 56. Antimitochondrial antibody negative. Of note a previously check total IgG was elevated at 1884 in 2019. Endoscopy: EGD 05/2020: Performed at [facility] by Dr. Chappell-normal esophagus. Gastritis- biopsies positive for H pylori. Normal duodenum. (To note, I am unable to see documentation of test of cure for H.pylori.) Colonoscopy 2019 was poor prep and recommendation was made to repeat in a year. To the extent visualized, the mucosa was reported as normal. At that visit plan was to recheck LFTs, A1AT, Anti-liver kidney, IgG. Also complained of dysphagia and barium swallow ordered. 11/2021. Continues to have intermittent RUQ discomfort. Now also noticing numbness in 3rd and 4th digits of RIGHT hand x 1 week. Denies any pain or pallor in these fingers. Says the numbness in 3rd finger is resolving but cont to have altered sensation in ring finger. Dysphagia is persistent too. Barium swallow was reviewed and negative for any gross dysmotility, stricture/web/ring. Pt describes dysphagia to specific textures such as hamburger, bread, steak etc. Has hx of environmental allergies and asthma. Reports weight loss of 20 lbs in the past one year - although not sure if due to decreased appetite from RUQ pain vs dietary modulation. 12/2021: Patient underwent liver biopsy on 12/18. Consistent with autoimmune hepatitis as suspected, with grade 2-3 activity and stage 3-4 fibrosis. Reports persistent sharp pain since the biopsy, which has slowly been improving. Comes in accompanied by her . She is quite anxious about the pathology results, despite reassurance multiple times at biopsies do not show cancer, but brother inflammation secondary to autoimmune hepatitis. To recap, her father had history of cirrhosis and from complications. Reviewed the management plan in detail with the patient as well as her spouse. Her blood sugars are running high in the last 1 week between 300-400. Patient currently does not have an senior storage engineer. She plans to reach out to her primary care provider about adjustment of her medications. She also has history of rheumatoid arthritis, used to be on methotrexate, but currently not on any therapy. Has not seen her provider Brie Trinh in 6 months. EGD and colonoscopy has already been scheduled for this February. 01/29/22: Patient presents today for follow-up 4 week follow-up. Unfortunately, labs were not done, therefore TPMT status is still unknown. I also am not aware of resp onse to prednisone. Patient reports consistently high blood sugars above 300. She also describes symptoms of nausea, dizziness, she to anus, and leg swelling. Also continues to have intermittent right upper quadrant discomfort. 02/26/22: Please see documentation from 02/23 re recent issues reviewed over phone call. In summary, patient is persistently having sugars above 350. She had a fasting blood sugar 489 on 02/23. In addition, also complain of whitish discoloration of her tongue associated with dysguesia and pain. Patient attributed these to her steroid therapy and stop taking her steroids for 3-4 days. She also had an episode of severe abdominal pain nausea and vomiting waking her up from night. Patient reports that blood sugars are now better controlled with up titration of insulin, and dietary discretion. Fasting blood sugar today was 228 , which is still high, but much better than 489. She also started applying coconut oil to her tongue, which has calmed down the burning sensation. Patient also reports a fall that she had yesterday, as she was going downstairs. She denies any presyncope or loss of consciousness, but also does not remember tripping. She is not entirely sure how she fell, but took a significant hit on her right side of the body, with bruising over her right arm and right leg. She tells me she has been noticing that she bruises more easily now. She reports taking azathioprine 100 mg once daily. Has resumed her prednisone taper 30 mg once daily. Has 3-4 days still left, consistent with her report of previously skipping medication. She was counseled again on not stopping her prednisone suddenly, to avoid withdrawal. She was also encouraged to keep compliance was a typewritten for continued remission of autoimmune hepatitis. She has already communicated with her imcu specialist and has been started on alendronate for osteopenia. EGD/colo 03/25/22: Tortuous esophagus, otherwise normal mucosa ?? Portal hypertensive gastropathy vs H pylori gastritis (biopsy) Abnormal duodenal mucosa (biopsy) Poor prep colon. Exam inadequate for CRC screening. External hemorrhoids Path: Duodenum, biopsy: Duodenal mucosa with preserved villous architecture and focally increased intraepithelial lymphocytes (see comment). Stomach, random, biopsy: Gastric antral and body mucosa with mild to moderate chronic active gastritis and few Helicobacter pylori organisms identified; negative for intestinal metaplasia and dysplasia. 04/07/2022: Reports that had 2 more episodes of abdominal discomfort, nausea vomiting and diarrhea. First in early February, and then again in late February. She reviewed the side effects of all of her recently started medication, and since then has stopped her azathioprine, alendronate, rosuvastatin. She does tell me that during these episodes, her sugars were very high, and her Glucometer just showed that the sugars were >500 but she does not know the exact number. Currently, main complaint is occasional fleeting spasm like pain and left lower quadrant the last 30 seconds, specially on movements. EGD and colonoscopy findings reviewed. Will be booked for another colonoscopy later this year due to inadequate prep. 04/16/22: From phone call discussion: Rev iewed results with Cece - LFTs have started to go up as well. Labs reviewed from 04/09, no pancreatitis. Likely has drug related intolerance, which was confirmed on re-exposure (and as expected, sx onset was fairly quick on re-exposure). Counseled that can occur in almost 5% pts. Will book for office visit to review alternatives 6 MP, MMF.. 04/20/22: No further episodes of abd pain, N,V since discontinuation of Azathioprine. Reviewed alternatives including 6-mercaptoputine and mycophenolate. Given excellent response to azathioprine and non-allergic intolerance to side effects, will first trial 6MP. Pt was counseled re dosing, monitoring and possible side effects. 05/21/22: No gastrointestinal complaints today. Has been tolerating her mercaptopurine 50mg without any issues. Does not report any abdominal pain, nausea, vomiting, diarrhea. Prednisone taper continues on 20mg dosing which she will complete tomorrow. Sugars remain high often above 300. Looking forward to her appointment with senior storage engineer next month. She also had an eye exam last week and does not report any abnormalities. Labs from last week have already been reviewed with the patient over the phone, but to recap, LFTs have all normalized and IgG is also now back to normal. 06/09/22:No acute GI issues. Down to prednisone 15mg a nd has a week left . Tolerating 6-MP 50mg once daily. L abs reviewed which were most signifi cant for BG >400. Insulin increased by her PCP. Also s [facility] later this month . Supplements have already been sent for low Vit D. Pt has been quite st ressed recently du e to her mom's [facility]. Was recently diagnosed with dem entia. She plans t o take care of her at home but will likely have to mov e to a different p lace with more spa ce. Very overwhelm ed with her parent 's declining cogni tive dysfunction. 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 10/15/22: Has a lot on her plate these days. Brother suddenly in June - waiting on autopsy results still. Was very depressed during the grieving period and was not taking her medications for most of the June including 6-MP. Then recently in August also possibly tore her L meniscus - awaiting MRI through ortho. Postponed her visit with me initially scheduled 09/13 to today for that reason as well. Has also not scheduled her colo yet as has very limited mobility. In terms of AIH therapy, finished her pred taper in July. Resumed taking 6-MP towards the end of July. Due for labs. Sugars are now better controlled but having more lows now. Tells me CGM was not covered by her insurance. Sees Dr López. 11/30/22: Visit requested by the pt to discuss her medical therapy with the daughter as well. Daughter Milena was on phone for the entire encounter. Pt currently reports increased fatigue, hunger, weight gain of 6-8 lbs in the last one month and uncontrolled BGs. Has been on prednisone, this is week 2 and she has started the taper. Current dose 30mg. Reports daily 6-MP now. US Abd 11/15/22: Enlarged slightly echogenic liver with question mild cirrhotic changes. Increasing intra and extrahepatic biliary duct dilatation. Post cholecystectomy. Slightly enlarged spleen. 01/06/23: [place]: 1. Poor prep colon 2. Total of 1 polyp removed 3. Internal and external hemorrhoids Path: Colon, ascending, polyp: Colonic mucosa with no specific change; negative for adenomatous dysplasia 01/19/23: Booked as a telehealth visit for post-colo follow up. To recall this was the 2nd attempt for colo, last year was also poor prep. Msg already sent to schedulers to rebook her later next year. In terms of AIH, LFTs normal. IgG improved from 2312 to 1797 after initiation of prednisone. Completed prednisone taper last month. Continues mercaptopurine 50mg daily and endorses better compliance now. Has also been referred to [facility] for evaluation. Booked in Apr 2023 but on cancellation list for sooner appt. Tells me she is booked for knee surgery this month. [facility] Medical History Osteoarthritis of hand, left Chronic constipation Hypoactive bowel sounds Hand numbness Autoimmune thyroiditis Abdominal pain Inflammatory arthritis Breast mass, right Lung cyst Bilateral hand numbness Neck pain Dyslipidemia Post-surgical hypothyroidism Diabetic polyneuropathy associated with type 2 diabetes mellitus MCFP (current) use of insulin Chronic idiopathic constipation Low vitamin D level Weight loss GERD (gastroesophageal reflux disease) Diabetes type 2, uncontrolled Fibromyalgia Insomnia Surgical History History of liver biopsy Hx of removal of cyst History of hysterectomy History of thyroidectomy, total History of esophagogastroduodenoscopy (EGD) Hx of colonoscopy (1998) Family History Father Status post liver transplant, biliary anastomotic size mismatch Brother No problems noted. Mother No problems noted. Maternal Aunt Breast cancer Other Mental health problem Substance abuse Social History Household Members: None Housing: House Alcohol intake: never Patient Tobacco Use Status: Former Tobacco user Quit Date: 10+ yrs ago Tobacco use type: Cigarette Cigarettes Per Day: 7 Years Smoked: 6 e-Cigarette/Vaping Use: Never Used Second Hand Smoke Exposure: No Advance Directives Date on File: 07/15/20 service: No Current occupational status: disabled Current occupation: right hand Cognitive needs: No Hearing needs: No Vision needs: No Female Reproductive History Menstrual Age of Menarche: 12 Review of Systems Const All systems reviewed & are unremarkable except as noted in HPI and below and Other Physical Exam video visit: Nontoxic appearing No obvious jaundice Speaking in full sentences No facial asymmetry Results Reviewed Results Reviewed: Laboratory Tests 10/29/22 12/13/22 12/13/22 14:12 14:29 14:29 Calcium 9.7 Total Bilirubin 0.7 Direct Bilirubin 0.3 AST 10 ALT 18 Alkaline Phosphatase 79 Total Protein 7.7 Albumin 4.1 IgG 2312 H 1797 H Assessment & Plan Assessment & Plan (1) Autoimmune hepatitis: Code(s): K75.4 - Autoimmune hepatitis (2) Low vitamin D level: Code(s): R79.89 - Other specified abnormal findings of blood chemistry (3) Osteopenia: Code(s): M85.80 - Other specified disorders of bone density and structure, unspecified site (4) Encounter for screening colonoscopy: Code(s): Z12.11 - Encounter for screening for malignant neoplasm of colon (5) Dilated bile duct: Code(s): K83.8 - Other specified diseases of biliary tract Plan Patient has biopsy-proven autoimmune hepatitis. Unable to tolerate Azathioprine due to side effects (abd pain, N,V - lipase normal). Sx returned within a few hours on rechallenge. Started on 6-MP in Mar 2022. Has been tolerating it without any side effects so far. White count WNL. Had periods of nonadherence between June and August of this year and therefore repeat labs were ordered which showed elevated IgG > 2000 in Oct 2022, with normal LFTs. Started on Prednisone 40 x1 week followed by taper which was completed in Nov 2022 with improvement in IgG levels. She was also scheduled for MRI to further investigate dilated bile ducts however deferred this due to knee injury. This is now booked for Mar 2023. Plan: * Check CBC, liver panel and IgG * Continue 6-MP 50mg. * MRI Abd liver protocol justine for Mar 2023. * Osteopenia: - Alendronate tx as per endocrine/Rheum. - Cont Vit D. * Transplant candidacy: - Advanced fibrosis/early cirrhosis without any CSPH. Scheduled to be seen at [facility] in Apr 2023. * CRC screening: - Incomplete colo 02/2022 and now again 12/2022 due to poor prep. Pt did not remember to do extended CLD this time and in fact took solids the morning before the procedure as well. - Advised miralax BID x 3 days and to take CLD x 1.5 days before the colo. Follow-up in 3 months. Orders: Orders Complete Blood Count no Diff 01/19/23 K75.4 - Autoimmune hepatitis Immunoglobulin G 01/19/23 K75.4 - Autoimmune hepatitis Liver Panel 01/19/23 K75.4 - Autoimmune hepatitis Telehealth Telehealth Location of provider rendering services: practice address Location of patient: address on file Patient Identification confirmed using: Name, : Yes Telehealth method: video Patient verbally consented to treatment: Yes Patient verbally consented to billing insurance company: Yes Patient informed of any privacy concerns related to visit: Yes Coding Level of Care Code Est Pt Level 5 (01742) Diagnoses Autoimmune hepatitis K75.4 Low vitamin D level R79.89 Osteopenia M85.80 Encounter for screening colonoscopy Z12.11 Dilated bile duct K83.8
== END 2023-01-19 16:05 | disposition home or self-care (01) ==
PROVIDERS: PCP Internal Medicine; Visit Provider Internal Medicine
DX: K75.4 Autoimmune hepatitis (principal); R79.89 Other specified abnormal findings of blood chemistry; M85.80 Other specified disorders of bone density and structure, unspecified site; Z12.11 Encounter for screening for malignant neoplasm of colon; K83.8 Other specified diseases of biliary tract
CPT/HCPCS: 99214

== ENCOUNTER → 2023-01-19 15:25 | Outpatient (BNVA) | payer MEDICARE, MEDICAID, SELFPAY | PROVIDERS: PCP Internal Medicine; Visit Provider Internal Medicine ==

== ENCOUNTER 2023-01-21 09:01 | Day surgery (SDC) | payer MEDICARE, MEDICAID, SELFPAY ==
[2023-01-18 10:04] VITALS: BMI 31.6
--- NOTE | 2023-01-20 09:59 | HO.ANESPROP2 ---
Documented by User: Brittany Chang NP 01/20/23 10:01 HPI - Anesthesia Eval Consult details Narrative: 57yo F for Left Knee Arthroscopy, partial medial meniscectomy, lateral meniscectomy PMFSH Active Problems Active Problems: All Active Problems (Updated 01/04/23 @ 16:59 by Ethan Gonzales MD) Sprain of right knee (Acute) Dilated bile duct (Acute) Osteopenia (Acute) Left knee pain (Acute) Chest pain (Acute) Tear of medial meniscus of left knee (Acute) Left knee sprain (Acute) H. pylori infection (Acute) Hyperlipidemia LDL goal <70 (Acute) Oral thrush (Acute) Long-term current use of steroids (Acute) Autoimmune thyroiditis (Acute) Autoimmune hepatitis (Acute) Generalized pain (Acute) Elevated liver enzymes (Acute) Dysphagia (Acute) Palpitations (Acute) Goiter (Acute) Abdominal pain (Acute) Abscess (Acute) Yeast infection involving the vagina and surrounding area (Acute) Vaginal irritation (Acute) Low back pain (Acute) Encounter for screening colonoscopy (Acute) Seronegative rheumatoid arthritis (Acute) Dyspnea on exertion (Acute) Pulmonary emphysema (Acute) Left wrist pain (Acute) Left hand pain (Acute) Rotator cuff tendonitis (Acute) De Quervain's disease (radial styloid tenosynovitis) (Acute) Osteoarthritis of hand, left (Acute) Chronic constipation (Acute) Hypoactive bowel sounds (Acute) Hand numbness (Acute) Autoimmune thyroiditis (Acute) Abdominal pain (Acute) Inflammatory arthritis (Acute) Breast mass, right (Acute) Lung cyst (Acute) Bilateral hand numbness (Acute) Neck pain (Acute) Dyslipidemia (Acute) Post-surgical hypothyroidism (Acute) Diabetic polyneuropathy associated with type 2 diabetes mellitus (Acute) shelter (current) use of insulin (Acute) Chronic idiopathic constipation (Acute) Low vitamin D level (Acute) Weight loss (Acute) GERD (gastroesophageal reflux disease) (Acute) Diabetes type 2, uncontrolled (Acute) Fibromyalgia (Acute) Insomnia (Acute) Past Medical History Medical History Osteoarthritis of hand, left Chronic constipation Hypoactive bowel sounds Hand numbness Autoimmune thyroiditis Abdominal pain Inflammatory arthritis Breast mass, right Lung cyst Bilateral hand numbness Neck pain Dyslipidemia Post-surgical hypothyroidism Diabetic 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 Mother No problems noted. Maternal Aunt Breast cancer Other Mental health problem Substance abuse Family history of problems with anesthesia: No Surgical History Surgical History History of liver biopsy Hx of removal of cyst History of hysterectomy History of thyroidectomy, total History of esophagogastroduodenoscopy (EGD) Hx of colonoscopy (1998) History of Problems with Anesthesia: No Social History Social History Household Members: None Housing: House Alcohol intake: never Patient Tobacco Use Status: Former Tobacco user Quit Date: 10+ yrs ago Tobacco use type: Cigarette Cigarettes Per Day: 7 Years Smoked: 6 e-Cigarette/Vaping Use: Never Used Second Hand Smoke Exposure: No Use of substances other than those prescribed or required for medical reasons: No Are you DNR?: No Advance Directives: No Advance Directives Information Provided: Yes Advance Directives on File: Yes Advance Directives Date on File: 07/15/20 Nutrition Risks: No Nutritional Risk service: No Current occupational status: disabled Current occupation: right hand Cognitive needs: No Hearing needs: No Vision needs: No Meds Allergies Allergy/AdvReac Type Severity Reaction Status Date / Time gadobutrol [From GADAVIST] Allergy Severe ANAPHYLAXIS Verified 01/19/23 15:26 hydroxychloroquine Allergy Intermediate rash,facial Verified 01/19/23 15:26 [Plaquenil] swelling Iodinated Contrast Media Allergy Intermediate DIFF Verified 01/19/23 15:26 [CONTRAST, IV] BREATHING levofloxacin [From LEVAQUIN] Allergy Intermediate ITCHY RASH Verified 01/19/23 15:26 pregabalin [From LYRICA] Allergy Intermediate STOMACH Verified 01/19/23 15:26 UPSET, Swelling tramadol Allergy Intermediate abdominal Verified 01/19/23 15:26 pain azathioprine AdvReac Intermediate Nausea and Verified 01/19/23 15:26 Vomiting insulin aspart AdvReac Intermediate chills, Verified 01/19/23 15:26 [From Novolog U-100 Insulin shaking, aspart] sweating, weakness and tachycardia Statins Support Allergy Intermediate transaminit Uncoded 01/19/23 15:26 is MRI contrast (gadolinium) AdvReac Severe anaphylaxis Uncoded 01/19/23 15:26 Active Medications: Current Medications Cefazolin Sodium/Dextrose (Ancef) 2 gm in 50 mls @ 100 mls/hr IV PREOP ONE Stop: 01/21/23 00:30 Home Medications Medication Instructions Recorded Confirmed Last Taken Type bisacodyl 5 mg tablet,delayed 5 mg PO BEDTIME 03/04/22 01/18/23 Unknown History release alendronate 70 mg tablet 70 mg PO QWEEK 10/15/22 01/18/23 Unknown History omeprazole 20 mg capsule,delayed 40 mg PO DAILY 11/30/22 01/18/23 Unknown History release Exam Exam Date and Time: January 20, 2023 0959 Height,Weight and Vital Signs: Height 5 ft 7 in Weight 91.626 kg Pertinent Lab Results Pertinent Lab Results: Laboratory Tests 12/13/22 14:29 WBC 4.8 Hgb 13.1 Hct 39.0 Plt Count 201 Sodium 136 Potassium 3.8 Chloride 101 Carbon Dioxide 29 BUN 15 Creatinine 0.83 Assessment and Plan Assessment Anesthesia Assessment: Chart Reviewed Final Anesthetic Review Family History of Problems with Anesthesia: No History of Problems with Anesthesia: No Documented by User: Shady Pace MD 01/21/23 10:57 [facility] Past Medical History Medical History Osteoarthritis of hand, left Chronic constipation Hypoactive bowel sounds Hand numbness Autoimmune thyroiditis Abdominal pain Inflammatory arthritis Breast mass, right Lung cyst Bilateral hand numbness Neck pain Dyslipidemia Post-surgical hypothyroidism Diabetic 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 Mother No problems noted. Maternal Aunt Breast cancer Other Mental health problem Substance abuse Surgical History Surgical History History of liver biopsy Hx of removal of cyst History of hysterectomy History of thyroidectomy, total History of esophagogastroduodenoscopy (EGD) Hx of colonoscopy (1998) Social History Social History Household Members: None Housing: House Alcohol intake: never Patient Tobacco Use Status: Former Tobacco user Quit Date: 10+ yrs ago Tobacco use type: Cigarette Cigarettes Per Day: 7 Years Smoked: 6 e-Cigarette/Vaping Use: Never Used Second Hand Smoke Exposure: No Use of substances other than those prescribed or required for medical reasons: No Are you DNR?: No Advance Directives: No Advance Directives Information Provided: Yes Advance Directives on File: Yes Advance Directives Date on File: 07/15/20 Nutrition Risks: No Nutritional Risk service: No Current occupational status: disabled Current occupation: right hand Cognitive needs: No Hearing needs: No Vision needs: No Meds Allergies Allergy/AdvReac Type Severity Reaction Status Date / Time gadobutrol [From GADAVIST] Allergy Severe ANAPHYLAXIS Verified 01/19/23 15:26 hydroxychloroquine Allergy Intermediate rash,facial Verified 01/19/23 15:26 [Plaquenil] swelling Iodinated Contrast Media Allergy Intermediate DIFF Verified 01/19/23 15:26 [CONTRAST, IV] BREATHING levofloxacin [From LEVAQUIN] Allergy Intermediate ITCHY RASH Verified 01/19/23 15:26 pregabalin [From LYRICA] Allergy Intermediate STOMACH Verified 01/19/23 15:26 UPSET, Swelling tramadol Allergy Intermediate abdominal Verified 01/19/23 15:26 pain azathioprine AdvReac Intermediate Nausea and Verified 01/19/23 15:26 Vomiting insulin aspart AdvReac Intermediate chills, Verified 01/19/23 15:26 [From Novolog U-100 Insulin shaking, aspart] sweating, weakness and tachycardia Statins Support Allergy Intermediate transaminit Uncoded 01/19/23 15:26 is MRI contrast (gadolinium) AdvReac Severe anaphylaxis Uncoded 01/19/23 15:26 Home Medications Medication Instructions Recorded Confirmed Last Taken Type bisacodyl 5 mg tablet,delayed 5 mg PO BEDTIME 03/04/22 01/18/23 Unknown History release alendronate 70 mg tablet 70 mg PO QWEEK 10/15/22 01/18/23 Unknown History omeprazole 20 mg capsule,delayed 40 mg PO DAILY 11/30/22 01/18/23 Unknown History release Exam Airway Mallampati Class: II TM Dist: >3cm Neck ROM: Limited Heart: rrr Lungs: cta Assessment and Plan Assessment Anesthesia Assessment: Anesthesia Plan Discussed Final Anesthetic Review NPO: Yes ASA Class: III Final Preanesthetic Review: No Changes in Pt Med Stat, Meds/Allgs Chart Reviewed, Consent Obtained/Reviewed and Anes Risks/Benef Reviewed Patient Risk: Intermediate Procedure Risk: Intermediate Anesthetic Plan Anesthetic Plan: GA and Agree w/ Assess. and Plan Disposition: Standard PACU
[2023-01-21] VITALS (10 sets, daily range): BP systolic 102–130; BP diastolic 58–80; PULSE 54–71; RESP 16–18; TEMP 36.3–36.6; O2SAT 96–100
[2023-01-21 11:04] LABS: Glucose, Whole Blood 216 mg/dL (60-115)
[2023-01-21] MEDS: Lactated Ringers 1,000 ML 100 ML IVCONT (11:23)
--- NOTE | 2023-01-21 13:10 | P.BOP_ITS ---
Brief Operative Note Date of Service: 01/21/23 Pre-op diagnosis: Left knee medial and lateral meniscus tears, left knee degenerative joint disease, left knee plica syndrome Post-op diagnosis: same Procedure: Left knee diagnostic arthroscopy with left knee arthroscopic partial medial and lateral meniscectomies, left knee arthroscopic chondroplasty of the undersurface of the patella as well as the medial femoral condyle, left knee arthroscopic plica excision Implants: none Surgeon: Dominick Doyle MD Anesthesia: GLMA Was an Bus Or Truck Garage Mechanic used for this Procedure?: No Estimated blood loss (mL): 10 Pathology: none sent Condition: stable Disposition: PACU
--- NOTE | 2023-01-21 13:11 | W.PM.OPN ---
Operative Note Operative Note Date of Service: 01/21/23 Narrative: After the patient was identified as Cece Conley and their left knee was initialed by myself they were brought to the operating room where general anesthesia was induced by the anesthesiologist in routine fashion. The patient was given 2 g of IV Ancef preoperatively for infection prophylaxis. The patient's left lower extremity was prepped and draped in sterile fashion. A formal time-out was completed. Marcaine was injected into the planned incision sites as well as the patient's left knee joint. A #11 scalpel blade was used to make an anterolateral portal 1 cm proximal to the joint line and 1 cm lateral to the patellar tendon. Blunt trocar technique was used to enter the suprapatellar pouch with the knee in extension. Diagnostic arthroscopy showed multiple bands of thickened plica which would be excised at the end of the procedure. There were no loose bodies or abnormalities found in either the medial or lateral gutters. The articular surface of the patella showed diffuse grade 2 degenerative changes. The trochlear groove articular surface showed diffuse grade 2 degenerative changes. The patient's knee was flexed to 45 degrees and a valgus force was placed upon it. The medial compartment was entered. An anteromedial portal was made 1 cm proximal to the joint line and 1 cm medial to the patellar tendon. Probing of the medial meniscus showed a radial tear of the posterior horn. A partial medial meniscectomy was performed using the arthroscopic shaver. Following the partial meniscectomy the remainder of the meniscus tissue was stable. There were diffuse grade 2 degenerative changes of the medial femoral condyle as well as grade 1 degenerative changes of the medial tibial plateau. The articular surface of the medial femoral condyle was then made smooth using the arthroscopic shaver. The articular surface of the medial tibial plateau was already smooth so no chondroplasty was indicated. The patient's knee was placed into a neutral position. There was no injury to the anterior cruciate ligament. The patient's knee was then placed in the figure of 4 position and the lateral compartment was entered. There was a radial tear of the anterior horn of the lateral meniscus. A partial lateral meniscectomy was performed using the arthroscopic shaver. Following the partial meniscectomy the remainder of the meniscus tissue was stable. There were minimal degenerative changes of the lateral femoral condyle and lateral tibial plateau. The patient's knee was once again brought into extension and the suprapatellar pouch was entered. The arthroscopic shaver and the ArthroCare Wand were used to excise the thickened bands of plica. The undersurface of the patella was then made smooth using the arthroscopic shaver. The articular surface of the trochlear groove was already smooth so no chondroplasty was indicated. The knee joint was irrigated and then drained. All arthroscopic instruments were removed. The 2 portals were closed with 3-0 nylon interrupted suture. The knee joint was injected with Marcaine. Dry sterile dressing and Servando bandages were placed over the patient's knee. The patient was awoken and extubated in the operating room. The patient was transferred to the recovery room in stable condition.
[2023-01-21] MEDS: fentaNYL citrate/PF 100 MCG/2 ML VIAL 25 MCG IVPUSH ×2 (13:35→13:40)
[2023-01-21] MEDS: oxyCODONE HCl Immed Release 5 MG TABLET 10 MG PO (13:35)
[2023-01-21] MEDS: cefTRIAXone sodium 1 GM in 0.9 % Sodium Chloride 50 ML IV (15:00)
== END 2023-01-21 15:53 | disposition home or self-care (01) ==
PROVIDERS: PCP Internal Medicine; Visit Provider Orthopaedic Surgery
PROC: (CPT 29870; principal; 2023-01-21 10:50)
DX: S83.242A Other tear of medial meniscus, current injury, left knee, initial encounter (principal); S83.282A Other tear of lateral meniscus, current injury, left knee, initial encounter; M17.12 Unilateral primary osteoarthritis, left knee; M67.52 Plica syndrome, left knee; X50.1XXA Overexertion from prolonged static or awkward postures, initial encounter; Y93.9 Activity, unspecified; Y92.9 Unspecified place or not applicable; Y99.8 Other external cause status; M79.7 Fibromyalgia; E06.3 Autoimmune thyroiditis; E89.0 Postprocedural hypothyroidism; E55.9 Vitamin D deficiency, unspecified; E11.42 Type 2 diabetes mellitus with diabetic polyneuropathy; Z79.4 Long term (current) use of insulin; Z79.899 Other long term (current) drug therapy
CPT/HCPCS: 29880; 82947; J0131; J0171; J0690; J0696; J1885; J2405; J2795; J3010

== ENCOUNTER → 2023-01-21 09:01 | Outpatient (BNV) | payer MEDICARE, MEDICAID, SELFPAY | PROVIDERS: PCP Internal Medicine; Visit Provider Orthopaedic Surgery | DX: S83.232A Complex tear of medial meniscus, current injury, left knee, initial encounter (principal); S83.272A Complex tear of lateral meniscus, current injury, left knee, initial encounter | CPT/HCPCS: 29880 ==

== ENCOUNTER 2023-02-03 13:34 | Outpatient (AMB) | payer MEDICARE, MEDICAID, SELFPAY ==
--- NOTE | 2023-02-03 13:57 | A.OFFVIS_ITS ---
Intake Intake Visit Reasons: PO-Lt Knee 01/21/23 DR Lindsay Note: Cece 57 yr old female presents today for her P/O visit for her left knee from DOS 01/21/[address] Doyle. States her pain has improved and is doing well. Sutures removed and steri strips applied. Allergies gadobutrol [From GADAVIST] Allergy (Severe, Verified 02/03/23 14:00) ANAPHYLAXIS hydroxychloroquine [Plaquenil] Allergy (Intermediate, Verified 02/03/23 14:00) rash,facial swelling Iodinated Contrast Media [CONTRAST, IV] Allergy (Intermediate, Verified 02/03/23 14:00) DIFF BREATHING levofloxacin [From LEVAQUIN] Allergy (Intermediate, Verified 02/03/23 14:00) ITCHY RASH pregabalin [From LYRICA] Allergy (Intermediate, Verified 02/03/23 14:00) STOMACH UPSET, Swelling tramadol Allergy (Intermediate, Verified 02/03/23 14:00) abdominal pain azathioprine Adverse Reaction (Intermediate, Verified 02/03/23 14:00) Nausea and Vomiting insulin aspart [From Novolog U-100 Insulin aspart] Adverse Reaction (Intermediate, Verified 02/03/23 14:00) chills, shaking, sweating, weakness and tachycardia Statins Support Allergy (Intermediate, Uncoded 02/03/23 14:00) transaminitis MRI contrast (gadolinium) Adverse Reaction (Severe, Uncoded 02/03/23 14:00) anaphylaxis HPI PO-Lt Knee 01/21/23 DR MCCRARY Details 57-year-old female who returns to the [facility] today for post-op left knee , 01/21/[address] Doyle. She states she has pain in her left knee but has been significantly improved since her surgery. She is doing well overall and has no concerns today. 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 Mother No problems noted. Maternal Aunt Breast cancer Other Mental health problem Substance abuse Social History Household Members: None Housing: House Alcohol intake: never Patient Tobacco Use Status: Former Tobacco user Quit Date: 10+ yrs ago Tobacco use type: Cigarette Cigarettes Per Day: 7 Years Smoked: 6 e-Cigarette/Vaping Use: Never Used Second Hand Smoke Exposure: No Advance Directives Date on File: 07/15/20 service: No Current occupational status: disabled Current occupation: right hand Cognitive needs: No Hearing needs: No Vision needs: No Female Reproductive History Menstrual Age of Menarche: 12 Review of Systems Const All systems reviewed & are unremarkable except as noted in HPI and below Physical Exam Extrem Other: Left knee: Incision clean, dry and intact. She does have some swelling in the knee. There is no erythema or drainage. ROM is -5 to 85 degrees. Calf supple, nontender. NVI. Results Reviewed Results Reviewed: Date of Service: 01/21/23 Pre-op diagnosis: Left knee medial and lateral meniscus tears, left knee degenerative joint disease, left knee plica syndrome Post-op diagnosis: same Procedure: Left knee diagnostic arthroscopy with left knee arthroscopic partial medial and lateral meniscectomies, left knee arthroscopic chondroplasty of the undersurface of the patella as well as the medial femoral condyle, left knee arthroscopic plica excision Surgeon: Dominick Doyle MD Assessment & Plan Assessment & Plan (1) H/O arthroscopy of left knee: Code(s): Z98.890 - Other specified postprocedural states (2) Tear of medial meniscus of left knee: Code(s): S83.242A - Other tear of medial meniscus, current injury, left knee, initial encounter Qualifiers: Tear current or old: current Encounter type: subsequent encounter Meniscus tear of knee type: unspecified type Qualified Code(s): S83.242D - Other tear of medial meniscus, current injury, left knee, subsequent encounter (3) Osteoarthritis of left knee: Code(s): M17.12 - Unilateral primary osteoarthritis, left knee Qualifiers: Osteoarthritis type: primary Qualified Code(s): M17.12 - Unilateral primary osteoarthritis, left knee Plan Sutures removed today, steri strips applied. I did stress the importance of working with physical therapy to improve her ROM and quad strength. I did demonstrate some exercises in the office today. I would like to see her back in [address] Doyle, sooner if needed. Orders: Orders PT Evaluation and Treatment Today M17.12 - Unilateral primary osteoarthritis, left knee, S83.242A - Other tear of medial meniscus, current injury, left knee, initial encounter, Z98.890 - Other specified postprocedural states Patient Instructions: Scribed for Sharon Mathias PA-C, by Per Pak medical laboratory scientist, on 02/03/2023 at 2:00 PM EST. I, Sharon Mathias PA-C, have personally reviewed and agree with the information entered by the scribe. Coding Level of Care Code Global (25053) Diagnoses H/O arthroscopy of left knee Z98.890 Tear of medial meniscus of left knee, current, unspecified tear type, subsequent encounter S83.242D Tear current or old: current Encounter type: subsequent encounter Meniscus tear of knee type: unspecified type Primary osteoarthritis of left knee M17.12 Osteoarthritis type: primary
== END 2023-02-03 14:38 | disposition home or self-care (01) ==
PROVIDERS: PCP Internal Medicine; Visit Provider Physician Assistant
DX: Z98.890 Other specified postprocedural states (principal); S83.242D Other tear of medial meniscus, current injury, left knee, subsequent encounter; M17.12 Unilateral primary osteoarthritis, left knee
CPT/HCPCS: 99024

== ENCOUNTER → 2023-02-03 13:34 | Outpatient (BNVA) | payer MEDICARE, MEDICAID, SELFPAY | PROVIDERS: PCP Internal Medicine; Visit Provider Physician Assistant ==

== ENCOUNTER 2023-02-04 13:46 | Outpatient (REF) | payer MEDICARE, MEDICAID, SELFPAY ==
[2023-02-04 15:02] LABS: Hematocrit 37.3 % (37.0-47.0); Hemoglobin 12.8 g/dl (12.0-16.0); Mean Corpuscular HGB Conc 34.3 g/dl (31.0-35.0); Mean Corpuscular Hemoglobin 29.2 pg (27.0-33.0); Mean Platelet Volume 9.4 fL (9.4-12.3); Platelet Count 238 X10*3/uL (160-400); Red Blood Count 4.39 X10*6/uL (4.20-5.50); Red Cell Distribution Width 12.8 % (11.0-16.0); White Blood Count 5.1 X10*3/uL (4.8-10.8)
[2023-02-04 15:35] LABS: Alanine Aminotransferase 10 U/L (0-31); Albumin Level 4.4 g/dL (3.5-5.0); Alkaline Phosphatase 94 U/L (39-117); Anion Gap 12 (12-20); Aspartate Amino Transferase 12 U/L (5-31); Bilirubin Direct 0.2 mg/dL (0.0-0.5); Bilirubin Total 0.6 mg/dL (0.0-1.0); Blood Urea Nitrogen 12 mg/dL (9-16); Calcium 10.2 mg/dL (8.4-10.2); Carbon Dioxide 26 mmol/L (22-29); Chloride 98 mmol/L (96-108); Estimated Glomerular Filt Rate > 60; Glucose Random 512 mg/dL (60-115); Potassium 4.2 mmol/L (3.3-5.1); Sodium 132 mmol/L (135-145); Total Protein 8.5 g/dL (6.5-8.0)
[2023-02-07 19:08] LABS: Immunoglobulin G 2089 mg/dL (600-1640)
== END 2023-02-04 13:47 | disposition home or self-care (01) ==
LOC: HO.LAB 13:46
PROVIDERS: PCP Internal Medicine; Visit Provider Internal Medicine
DX: K75.4 Autoimmune hepatitis (principal)
CPT/HCPCS: 36415; 80053; 82248; 82784; 85027

== ENCOUNTER 2023-02-14 16:40 | Outpatient (AMB) | payer MEDICARE, MEDICAID, SELFPAY ==
[2023-02-14 16:46] VITALS: BP 118/72; BMI 31.6
--- NOTE | 2023-02-14 16:46 | MHC.PC.OV ---
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 Accompanied by: Self / Same As Patient Allergies gadobutrol [From GADAVIST] Allergy (Severe, Verified 02/14/23 17:03) ANAPHYLAXIS hydroxychloroquine [Plaquenil] Allergy (Intermediate, Verified 02/14/23 17:03) rash,facial swelling Iodinated Contrast Media [CONTRAST, IV] Allergy (Intermediate, Verified 02/14/23 17:03) DIFF BREATHING levofloxacin [From LEVAQUIN] Allergy (Intermediate, Verified 02/14/23 17:03) ITCHY RASH pregabalin [From LYRICA] Allergy (Intermediate, Verified 02/14/23 17:03) STOMACH UPSET, Swelling tramadol Allergy (Intermediate, Verified 02/14/23 17:03) abdominal pain azathioprine Adverse Reaction (Intermediate, Verified 02/14/23 17:03) Nausea and Vomiting insulin aspart [From Novolog U-100 Insulin aspart] Adverse Reaction (Intermediate, Verified 02/14/23 17:03) chills, shaking, sweating, weakness and tachycardia Statins Support Allergy (Intermediate, Uncoded 02/14/23 17:03) transaminitis MRI contrast (gadolinium) Adverse Reaction (Severe, Uncoded 02/14/23 17:03) anaphylaxis Medication List - Last Reconciled 02/14/23 by Becca Newberry MD albuterol sulfate 90 mcg/actuation 2 puffs inhalation Q6H PRN 30 days alendronate 70 mg PO QWEEK bisacodyl 5 mg PO BEDTIME blood sugar diagnostic (FreeStyle Lite Strips) As directed 3 times a day blood-glucose meter (FreeStyle Lite Meter kit) As directed cholecalciferol (vitamin D3) 50 mcg PO DAILY 90 days flash glucose scanning reader (FreeStyle Liza 2 [place]) As directed flash glucose sensor (FreeStyle Liza 2 Sensor kit) As directed -change every 14 days folic acid 1 mg PO DAILY ibuprofen 600 mg PO TID 7 days insulin degludec (Tresiba FlexTouch U-200 insulin) 150 units (0.75 mL) subcut BEDTIME 30 days insulin lispro (Humalog KwikPen (U-100) Insulin) 10 units (0.1 mL) subcut TID 30 days lancets (FreeStyle Lancets) Use 1 lancet three times a day levothyroxine 200 mcg PO DAILY 90 days loratadine 10 mg PO DAILY 90 days mercaptopurine 50 mg PO DAILY omeprazole 40 mg PO DAILY ondansetron HCl 8 mg PO DAILY PRN 30 days oxycodone 10 mg PO Q8H PRN 30 days pen needle, diabetic (BD Ultra-Fine Alivia Pen Needle) As directed 4x/day rosuvastatin 10 mg PO DAILY 90 days tiotropium-olodaterol 2.5-2.5 mcg/actuation (Stiolto Respimat) 2 puffs inhalation DAILY 30 days zolpidem 10 mg PO BEDTIME 30 days Tobacco use date assessed: 05/24/22 Dental Screening Dental Screen Date: 02/14/23 Did you have a dental visit in the last 12 months?: Yes Did you have a dental problem in the last 6 months where you did not have access to dental care?: No Was dental information given to patient?: Patient has dentist HPI HPI Comments History of Present Illness Details This is a 57-year-old female with autoimmune thyroiditis, autoimmune hepatitis, hyperlipidemia and diabetes mellitus type 2 on long-term current use of insulin that comes today complaining of bilateral knee pain. She walks with a walker for gait stability. Had left knee arthroscopy recently and follows with Ortho. Right knee incision for painful and had an x-ray showing mild joint effusion. X-ray will be repeated and will be referred to Ortho for the right knee. TSH was ordered for her autoimmune thyroiditis. Liver enzymes stable with mercaptopurine. Lipid panel will be order and her LDL goal should be less than 70. A1c elevated and I will increase insulin. She admits not been compliant with short-acting insulin. 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 Mother No problems noted. Maternal Aunt Breast cancer Other Mental health problem Substance abuse Social History Household Members: None Housing: House Alcohol intake: never Patient Tobacco Use Status: Former Tobacco user Quit Date: 10+ yrs ago Tobacco use type: Cigarette Cigarettes Per Day: 7 Years Smoked: 6 Packs per year/per ci.10 e-Cigarette/Vaping Use: Never Used Second Hand Smoke Exposure: No Advance Directives Date on File: 07/15/20 service: No Current occupational status: disabled Current occupation: right hand Cognitive needs: No Hearing needs: No Vision needs: No Female Reproductive History Menstrual Age of Menarche: 12 Questionnaire Thrive Questionnaire Date Thrive assessed: 05/24/22 HATTIE-7 AMB Questionnaire HATTIE-7 Date HATTIE - 7 assessed: 05/24/22 Source: Developed by Drs. Esdras Tang, April Mathews, Bobby Toussaint and colleagues, with an educational antonella from [employer]. Review of Systems Const All systems reviewed & are unremarkable except as noted in HPI and below Eyes Reports no additional complaints, Denies change in vision and Denies other visual disturbances Card Denies chest pain at rest, Denies chest pain with activity, Denies edema, Denies irregular heart rhythm, Denies claudication, Denies dyspnea, Denies dyspnea on exertion, Denies orthopnea, Denies paroxysmal nocturnal dyspnea and Denies slow heart rate Resp Denies cough, Denies dyspnea and Denies dyspnea on exertion GI Denies abdominal pain, Denies change in bowel habits, Denies excessive flatus, Denies nausea and Denies vomiting Denies urinary incontinence, Denies urinary hesitancy and Denies urinary urgency Musc Denies abnormal gait, Denies atrophy, Denies deformity and Denies limited range of motion Skin/Breast Denies bleeding lesions, Denies changing lesions and Denies rash Neuro Denies abnormal gait and Denies lack of coordination Physical exam (Primary Care) Vital Signs: Last Vital Signs BP 118/72 02/14/23 16:46 BMI result Body Mass Index 31.6 Tobacco/Smoking Status: Tobacco use Status Tobacco use date assessed 05/24/22 02/14/23 16:50 Patient Tobacco Use Status Former Tobacco user 02/14/23 16:50 Tobacco use type Cigarette 02/14/23 16:50 e-Cigarette/Vaping Use Never Used 02/14/23 16:50 Thrive Assessment: Date of Thrive Assessment Date Thrive assessed 05/24/22 02/14/23 16:50 Eyes General: appearance normal, both eyes and all related structures Eyelids: Yes eyelids normal Conjunctivae: conjunctivae normal Neck Neck: Yes normal visual inspection and Yes supple Resp Effort & Inspection: normal respiratory effort Auscultation: clear to auscultation bilaterally Cardio Jugular venous distension: no JVD Rate: regular rate Rhythm: regular rhythm Heart sounds: S1 normal heart sound present and S2 normal heart sound present Extrem General: Yes full ROM Psych Appearance: grossly normal Office Procedures Flu Questionnaire Does the patient have a severe egg allergy?: No Results AMB Hemoglobin A1c AMB Hemoglobin A1c 10.0 % Last Edit by LINDA Crump on 02/14/23 16:53 Immunizations flu vacc [id number] 6mos up(PF) 60 mcg(15 mcgx4)/0.5 mL IM syringe Performing Provider: Becca Newberry MD [facility] Documented (not given) by: LINDA Crump on 02/14/23 16:52 Reason Not Given: Patient Refused Results Reviewed Results Reviewed: Laboratory Last Values Hgb A1c (Clinic) 10.0 % (4.0-6.0) H 02/14/23 16:52 Assessment and Plan Assessment & Plan (1) Autoimmune thyroiditis: Code(s): E06.3 - Autoimmune thyroiditis Plan: Continue levothyroxine. Monitor TSH. (2) Autoimmune hepatitis: Code(s): K75.4 - Autoimmune hepatitis Plan: Continue mercaptopurine. Follow up with Gastroenterology. (3) Hyperlipidemia LDL goal <70: Code(s): E78.5 - Hyperlipidemia, unspecified Plan: Continue statins. LDL goal should be less than 70. (4) Diabetes type 2, uncontrolled: Code(s): E11.65 - Type 2 diabetes mellitus with hyperglycemia Qualifiers: Glycemic state: with hyperglycemia Qualified Code(s): E11.65 - Type 2 diabetes mellitus with hyperglycemia Plan: Increase insulin to 165 units once a day. A1c goal is equal or less than 7%. Orders: Orders Influenza [id number] Immunization Today Z23 - Encounter for immunization Lipid Panel Today E78.5 - Hyperlipidemia, unspecified Vitamin D 25-OH Total Today E55.9 - Vitamin D deficiency, unspecified Comprehensive [place]. Panel Fast Today E78.5 - Hyperlipidemia, unspecified Complete Blood Count Auto Diff Today D64.9 - Anemia, unspecified AMB Hemoglobin A1c Today E11.65 - Type 2 diabetes mellitus with hyperglycemia XR knee RT 2V Today S83.91XA - Sprain of unspecified site of right knee, initial encounter Microalbumin, Random (w Creat) Today E11.9 - Type 2 diabetes mellitus without complications Vitamin B12 and Folate Today E53.8 - Deficiency of other specified B group vitamins Thyroid Stimulating Hormone Today E06.3 - Autoimmune thyroiditis IRON PROFILE Today D64.9 - Anemia, unspecified Referrals Orthopedics Referral S83.91XA - Sprain of unspecified site of right knee, initial encounter Medications: New fluconazole 150 mg PO Q3D 2 tabs 0RF ropinirole administer 1-3 hours before bedtime 0.25 mg PO BEDTIME 30 days 30 tabs 0RF Changed From omeprazole 40 mg PO DAILY To omeprazole 40 mg (2 x 20 mg) PO DAILY 90 days 180 caps 1RF From alendronate 70 mg PO QWEEK To alendronate 70 mg PO QWEEK 90 days 13 tabs 1RF From insulin degludec (Tresiba FlexTouch U-200 insulin) 150 units (0.75 mL) subcut BEDTIME 30 days 22.5 mL 1RF E11.42 - Type 2 diabetes mellitus with diabetic polyneuropathy To insulin degludec (Tresiba FlexTouch U-200 insulin) 165 units (0.825 mL) subcut BEDTIME 30 days 24.75 mL 1RF E11.42 - Type 2 diabetes mellitus with diabetic polyneuropathy Refilled cholecalciferol (vitamin D3) 50 mcg PO DAILY 90 days 90 caps 3RF ondansetron HCl 8 mg PO DAILY 30 days PRN 30 tabs 0RF nausea and vomiting Coding Level of Care Code Est Pt Level 4 (04969) Diagnoses Autoimmune thyroiditis E06.3 Autoimmune hepatitis K75.4 Hyperlipidemia LDL goal <70 E78.5 Uncontrolled type 2 diabetes mellitus with hyperglycemia E11.65 Glycemic state: with hyperglycemia Time Spent (min) 24
== END 2023-02-14 17:25 | disposition home or self-care (01) ==
PROVIDERS: PCP Internal Medicine; Visit Provider Internal Medicine
DX: E06.3 Autoimmune thyroiditis (principal); K75.4 Autoimmune hepatitis; E11.65 Type 2 diabetes mellitus with hyperglycemia; E78.5 Hyperlipidemia, unspecified
CPT/HCPCS: 83036; 99214

== ENCOUNTER 2023-02-16 07:58 | Outpatient (REF) | payer MEDICARE, MEDICAID, SELFPAY ==
--- NOTE | ~2023-02-16 | XR_ITS ---
EXAMINATION: XR KNEE, RIGHT CLINICAL INFORMATION: Sprain of right knee. COMPARISON: 01/04/2023 right knee. TECHNIQUE: AP and lateral views of the right knee. FINDINGS: Joint spaces are preserved. Small joint effusion. Small posterior patellar osteophytes. XR/XR knee RT 2V IMPRESSION: Small joint effusion. Mild degenerative changes.
[2023-02-16 08:16] LABS: MANUAL DIFF FLAG NO
[2023-02-16 08:34] LABS: Basophils Percent Auto 0.5 % (0-2); Eosinophils Absolute Auto 0.1 X10*3/uL (0.0-0.4); Eosinophils Percent Auto 2.3 % (0-4); Hematocrit 36.1 % (37.0-47.0); Hemoglobin 12.6 g/dl (12.0-16.0); Imm Gran Abs Auto 0.01 X10*3/uL (0.00-0.03); Imm Gran Pct Auto 0.3 % (0.0-0.4); Lymphocytes Absolute Auto 1.7 X10*3/uL (1.2-4.9); Lymphocytes Percent Auto 44.7 % (20-40); Mean Corpuscular HGB Conc 34.9 g/dl (31.0-35.0); Mean Corpuscular Hemoglobin 30.5 pg (27.0-33.0); Mean Corpuscular Volume 87.4 fL (80.0-98.0); Mean Platelet Volume 9.3 fL (9.4-12.3); Monocytes Absolute Auto 0.3 X10*3/uL (0.1-1.2); Monocytes Percent Auto 6.5 % (2-11); Neutrophils Absolute Auto 1.8 x10*3/uL (2.0-8.3); Neutrophils Percent Auto 45.7 % (45-73); Platelet Count 222 X10*3/uL (160-400); Red Blood Count 4.13 X10*6/uL (4.20-5.50); Red Cell Distribution Width 12.7 % (11.0-16.0); White Blood Count 3.9 X10*3/uL (4.8-10.8)
[2023-02-16 09:03] LABS: Alanine Aminotransferase 15 U/L (0-31); Albumin Level 4.1 g/dL (3.5-5.0); Alkaline Phosphatase 83 U/L (39-117); Anion Gap 11 (12-20); Aspartate Amino Transferase 16 U/L (5-31); Bilirubin Total 0.4 mg/dL (0.0-1.0); Blood Urea Nitrogen 17 mg/dL (9-16); Calcium 9.8 mg/dL (8.4-10.2); Carbon Dioxide 27 mmol/L (22-29); Chloride 102 mmol/L (96-108); Cholesterol 180 mg/dL (<200); Estimated Glomerular Filt Rate > 60; Glucose Fasting 367 mg/dL (60-99); HDL Cholesterol 42 mg/dL (>40); Iron 61 mcg/dL (30-160); LDL Cholesterol Calculated 83 mg/dL (<100); Percent Iron Saturation 22 % (15-50); Sodium 136 mmol/L (135-145); Total Iron Binding Capacity 280 mcg/dL (228-428); Total Protein 8.2 g/dL (6.5-8.0); Triglycerides 277 mg/dL (<150); Unsaturated Iron Binding 219 ug/dL
[2023-02-16 09:15] LABS: Thyroid Stimulating Hormone 17.41 uIU/mL (0.32-4.0); Vitamin D 25-OH Total 27.1 ng/mL (>30)
[2023-02-16 09:21] LABS: Folate 12.3 ng/mL (> or = 4.0); Vitamin B12 731 pg/mL (200-900)
[2023-02-16 09:23] LABS: Creatinine Urine 173.39 mg/dL
== END 2023-02-16 07:59 | disposition home or self-care (01) ==
LOC: HO.XRAY 07:58
PROVIDERS: PCP Internal Medicine; Visit Provider Internal Medicine
DX: S83.91XA Sprain of unspecified site of right knee, initial encounter (principal); E06.3 Autoimmune thyroiditis; E78.5 Hyperlipidemia, unspecified; D64.9 Anemia, unspecified; E11.9 Type 2 diabetes mellitus without complications; E55.9 Vitamin D deficiency, unspecified
CPT/HCPCS: 36415; 73560; 80053; 80061; 82043; 82306; 82570; 82607; 82746; 83540; 84443; 85025

== ENCOUNTER 2023-02-22 15:39 | Outpatient (AMB) | payer MEDICARE, MEDICAID, SELFPAY ==
[2023-02-22 15:53] VITALS: BP 126/70; BMI 31.9
--- NOTE | 2023-02-22 15:53 | MHC.PC.OV ---
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 Accompanied by: Self / Same As Patient Allergies gadobutrol [From GADAVIST] Allergy (Severe, Verified 02/22/23 16:12) ANAPHYLAXIS hydroxychloroquine [Plaquenil] Allergy (Intermediate, Verified 02/22/23 16:12) rash,facial swelling Iodinated Contrast Media [CONTRAST, IV] Allergy (Intermediate, Verified 02/22/23 16:12) DIFF BREATHING levofloxacin [From LEVAQUIN] Allergy (Intermediate, Verified 02/22/23 16:12) ITCHY RASH pregabalin [From LYRICA] Allergy (Intermediate, Verified 02/22/23 16:12) STOMACH UPSET, Swelling tramadol Allergy (Intermediate, Verified 02/22/23 16:12) abdominal pain azathioprine Adverse Reaction (Intermediate, Verified 02/22/23 16:12) Nausea and Vomiting insulin aspart [From Novolog U-100 Insulin aspart] Adverse Reaction (Intermediate, Verified 02/22/23 16:12) chills, shaking, sweating, weakness and tachycardia Statins Support Allergy (Intermediate, Uncoded 02/22/23 16:12) transaminitis MRI contrast (gadolinium) Adverse Reaction (Severe, Uncoded 02/22/23 16:12) anaphylaxis Medication List - Last Reconciled 02/22/23 by Becca Newberry MD albuterol sulfate 90 mcg/actuation 2 puffs inhalation Q6H PRN 30 days alendronate 70 mg PO QWEEK 90 days bisacodyl 5 mg PO BEDTIME blood sugar diagnostic (FreeStyle Lite Strips) As directed 3 times a day blood-glucose meter (FreeStyle Lite Meter kit) As directed cholecalciferol (vitamin D3) 50 mcg PO DAILY 90 days flash glucose scanning reader (FreeStyle Liza 2 [place]) As directed flash glucose sensor (FreeStyle Liza 2 Sensor kit) As directed -change every 14 days fluconazole 150 mg PO Q3D 2 doses folic acid 1 mg PO DAILY ibuprofen 600 mg PO TID 7 days insulin degludec (Tresiba FlexTouch U-200 insulin) 170 units (0.85 mL) subcut BEDTIME 30 days lancets (FreeStyle Lancets) Use 1 lancet three times a day levothyroxine 200 mcg PO DAILY 90 days loratadine 10 mg PO DAILY 90 days mercaptopurine 50 mg PO DAILY omeprazole 40 mg (2 x 20 mg) PO DAILY 90 days ondansetron HCl 8 mg PO DAILY PRN 30 days oxycodone 10 mg PO Q8H PRN 30 days pen needle, diabetic (BD Ultra-Fine Alivia Pen Needle) As directed 4x/day ropinirole 0.25 mg PO BEDTIME 30 days rosuvastatin 10 mg PO DAILY 90 days tiotropium-olodaterol 2.5-2.5 mcg/actuation (Stiolto Respimat) 2 puffs inhalation DAILY 30 days zolpidem 10 mg PO BEDTIME 30 days Tobacco use date assessed: 05/24/22 Dental Screening Dental Screen Date: 02/22/23 Did you have a dental visit in the last 12 months?: Yes Did you have a dental problem in the last 6 months where you did not have access to dental care?: No Was dental information given to patient?: Patient has dentist HPI HPI Comments History of Present Illness Details This is a 57-year-old female with diabetes mellitus type 2 on long-term current use of insulin not control, rheumatoid arthritis and autoimmune hepatitis as well as mild major depression that comes for her physical exam. Last colonoscopy was December 2022. No need for Pap smear due to hysterectomy. Mammogram done 2022. Complains of diffuse joint pain more prominent in the lumbar spine and bilateral knees. Needs assistance in mobility transfer from bed to chair. Head admits that she still has depression but declines treatment. Autoimmune hepatitis stable with mercaptopurine and this is follow by Gastroenterology. A1c elevated and blood glucose at home still elevated. I will increase insulin from 170 to 175 units once a day. 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 Maternal Aunt Breast cancer Brother Essential hypertension Substance abuse Pure hypercholesterolemia Other Mental health problem Social History Household Members: None Housing: House Alcohol intake: never Patient Tobacco Use Status: Former Tobacco user Quit Date: 10+ yrs ago Tobacco use type: Cigarette Cigarettes Per Day: 7 Years Smoked: 6 e-Cigarette/Vaping Use: Never Used Second Hand Smoke Exposure: No Advance Directives Date on File: 07/15/20 service: No Current occupational status: disabled Current occupation: right hand Cognitive needs: No Hearing needs: No Vision needs: No Female Reproductive History Menstrual Age of Menarche: 12 Questionnaire Thrive Questionnaire Date Thrive assessed: 05/24/22 HATTIE-7 AMB Questionnaire HATTIE-7 Date HATTIE - 7 assessed: 05/24/22 Source: Developed by Drs. Esdras Tang, April Mathews, Bobby Toussaint and colleagues, with an educational antonella from [employer]. Review of Systems Const All systems reviewed & are unremarkable except as noted in HPI and below Eyes Reports no additional complaints, Denies change in vision and Denies other visual disturbances Card Denies chest pain at rest, Denies chest pain with activity, Denies edema, Denies irregular heart rhythm, Denies claudication, Denies dyspnea, Denies dyspnea on exertion, Denies orthopnea, Denies paroxysmal nocturnal dyspnea and Denies slow heart rate Resp Denies cough, Denies dyspnea and Denies dyspnea on exertion GI Denies abdominal pain, Denies change in bowel habits, Denies excessive flatus, Denies nausea and Denies vomiting Denies urinary incontinence, Denies urinary hesitancy and Denies urinary urgency Musc Denies abnormal gait, Reports back pain, Denies atrophy, Denies deformity, Reports arthralgias, Reports joint swelling and Reports limited range of motion Skin/Breast Denies bleeding lesions, Denies changing lesions and Denies rash Neuro Denies abnormal gait and Denies lack of coordination Physical exam (Primary Care) Vital Signs: Last Vital Signs BP 126/70 02/22/23 15:53 BMI result Body Mass Index 31.9 Tobacco/Smoking Status: Tobacco use Status Tobacco use date assessed 05/24/22 02/22/23 15:54 Patient Tobacco Use Status Former Tobacco user 02/22/23 15:54 Tobacco use type Cigarette 02/22/23 15:54 e-Cigarette/Vaping Use Never Used 02/22/23 15:54 Thrive Assessment: Date of Thrive Assessment Date Thrive assessed 05/24/22 02/22/23 15:54 Const Other: In pain Orientation/consciousness: patient oriented x3 HENMT Head: Yes normal to inspection, Yes normocephalic and Yes atraumatic Ears: external ears normal Eyes General: appearance normal, both eyes and all related structures Eyelids: Yes eyelids normal Conjunctivae: conjunctivae normal Neck Neck: Yes normal visual inspection and Yes supple Resp Effort & Inspection: normal respiratory effort Auscultation: clear to auscultation bilaterally Cardio Jugular venous distension: no JVD Rate: regular rate Rhythm: regular rhythm Heart sounds: S1 normal heart sound present and S2 normal heart sound present GI Inspection: Yes normal to inspection Palpation (GI): Soft to palpation and nontender Auscultation: normal bowel sounds Back/Spine/Pelvis Back: back tenderness Skin General skin exam: no rashes or lesions noted Neuro General: patient oriented x3 and no focal motor deficits Extrem Other: limited knee flexion bilateral Psych Appearance: grossly normal Assessment and Plan Assessment & Plan (1) Physical exam: Code(s): Z00.00 - Encounter for general adult medical examination without abnormal findings Plan: Repeat in a year. (2) Autoimmune hepatitis: Code(s): K75.4 - Autoimmune hepatitis Plan: Continue mercaptopurine. (3) Seronegative rheumatoid arthritis: Comment: Methotrexate 11/2020-July 2021. Code(s): M06.00 - Rheumatoid arthritis without rheumatoid factor, unspecified site Plan: Follow-up with rheumatology. (4) Diabetes type 2, uncontrolled: Code(s): E11.65 - Type 2 diabetes mellitus with hyperglycemia Qualifiers: Glycemic state: with hyperglycemia Qualified Code(s): E11.65 - Type 2 diabetes mellitus with hyperglycemia Plan: Increase insulin to 175 units once a day. (5) Mild major depression: Code(s): F32.0 - Major depressive disorder, single episode, mild Plan: Declines treatment at the moment. Was advised if she needed counseling to let me know. Orders: Orders Thyroid Stimulating Hormone 6 Weeks E89.0 - Postprocedural hypothyroidism Medications: New levothyroxine (Synthroid) 25 mcg PO DAILY 90 tabs 0RF 90 days [bed rails] As directed 1 ea 0RF M06.00 - Rheumatoid arthritis without rheumatoid factor, unspecified site, M17.12 - Unilateral primary osteoarthritis, left knee, M51.36 - Other intervertebral disc degeneration, lumbar region, M79.7 - Fibromyalgia Changed From insulin degludec (Tresiba FlexTouch U-200 insulin) 170 units (0.85 mL) subcut BEDTIME 30 days 25.5 mL 1RF E11.42 - Type 2 diabetes mellitus with diabetic polyneuropathy To insulin degludec (Tresiba FlexTouch U-200 insulin) 175 units (0.875 mL) subcut BEDTIME 26.25 mL 6RF 30 days E11.42 - Type 2 diabetes mellitus with diabetic polyneuropathy Refilled folic acid 1 mg PO DAILY 30 tabs 3RF oxycodone Partial Fill upon patient request. 10 mg PO Q8H PRN 90 tabs 0RF pain 30 days Coding Level of Care Code Est Pt Prev Care 40-64y(45760) Diagnoses Physical exam Z00.00 Autoimmune hepatitis K75.4 Seronegative rheumatoid arthritis M06.00 Uncontrolled type 2 diabetes mellitus with hyperglycemia E11.65 Glycemic state: with hyperglycemia Mild major depression F32.0 Time Spent (min) 38
== END 2023-02-22 16:44 | disposition home or self-care (01) ==
PROVIDERS: PCP Internal Medicine; Visit Provider Internal Medicine
DX: Z00.00 Encounter for general adult medical examination without abnormal findings (principal); K75.4 Autoimmune hepatitis; M06.00 Rheumatoid arthritis without rheumatoid factor, unspecified site; E11.65 Type 2 diabetes mellitus with hyperglycemia; F32.0 Major depressive disorder, single episode, mild
CPT/HCPCS: 99396

== ENCOUNTER 2023-03-14 13:00 | Outpatient (AMB) | payer MEDICARE, MEDICAID, SELFPAY ==
--- NOTE | 2023-03-14 13:04 | MHC.OFFVIS ---
Intake Intake Visit Reasons: Newprob-Sprain in right knee Intake Note: Cece 57 yr old female presents today for her P/O visit for her left knee from DOS 01/21/[address] Doyle. She reports mild intermittent discomfort in her left knee. She denies any fevers or chills. Today she is most concerned with progressively worsening right knee pain and giving way as well as pain in her right calf. She states that her symptoms have gotten worse over the last few months in spite of continued non operative treatments. She has done physical therapy exercises which aggravated her pain. She states that her right knee will give out several times per day. She does walk with a cane. She has tried Tylenol and oxycodone which gave her only mild relief. Allergies gadobutrol [From GADAVIST] Allergy (Severe, Verified 02/22/23 16:12) ANAPHYLAXIS hydroxychloroquine [Plaquenil] Allergy (Intermediate, Verified 02/22/23 16:12) rash,facial swelling Iodinated Contrast Media [CONTRAST, IV] Allergy (Intermediate, Verified 02/22/23 16:12) DIFF BREATHING levofloxacin [From LEVAQUIN] Allergy (Intermediate, Verified 02/22/23 16:12) ITCHY RASH pregabalin [From LYRICA] Allergy (Intermediate, Verified 02/22/23 16:12) STOMACH UPSET, Swelling tramadol Allergy (Intermediate, Verified 02/22/23 16:12) abdominal pain azathioprine Adverse Reaction (Intermediate, Verified 02/22/23 16:12) Nausea and Vomiting insulin aspart [From Novolog U-100 Insulin aspart] Adverse Reaction (Intermediate, Verified 02/22/23 16:12) chills, shaking, sweating, weakness and tachycardia Statins Support Allergy (Intermediate, Uncoded 02/22/23 16:12) transaminitis MRI contrast (gadolinium) Adverse Reaction (Severe, Uncoded 02/22/23 16:12) anaphylaxis Medication List - Last Reconciled 03/14/23 by Dominick Doyle MD albuterol sulfate 90 mcg/actuation 2 puffs inhalation Q6H PRN 30 days alendronate 70 mg PO QWEEK 90 days [bed rails As directed] bisacodyl 5 mg PO BEDTIME blood sugar diagnostic (FreeStyle Lite Strips) As directed 3 times a day blood-glucose meter (FreeStyle Lite Meter kit) As directed cholecalciferol (vitamin D3) 50 mcg PO DAILY 90 days flash glucose scanning reader (FreeStyle Liza 2 [place]) As directed flash glucose sensor (FreeStyle Liza 2 Sensor kit) As directed -change every 14 days fluconazole 150 mg PO Q3D 2 doses folic acid 1 mg PO DAILY ibuprofen 600 mg PO TID 7 days insulin degludec (Tresiba FlexTouch U-200 insulin) 175 units (0.875 mL) subcut BEDTIME 30 days lancets (FreeStyle Lancets) Use 1 lancet three times a day levothyroxine 200 mcg PO DAILY 90 days levothyroxine (Synthroid) 25 mcg PO DAILY 90 days loratadine 10 mg PO DAILY 90 days mercaptopurine 50 mg PO DAILY omeprazole 40 mg (2 x 20 mg) PO DAILY 90 days ondansetron HCl 8 mg PO DAILY PRN 30 days oxycodone 10 mg PO Q8H PRN 30 days pen needle, diabetic (BD Ultra-Fine Alivia Pen Needle) As directed 4x/day ropinirole 0.25 mg PO BEDTIME 30 days ropinirole 0.25 mg PO DAILY rosuvastatin 10 mg PO DAILY 90 days tiotropium-olodaterol 2.5-2.5 mcg/actuation (Stiolto Respimat) 2 puffs inhalation DAILY 30 days zolpidem 10 mg PO BEDTIME 30 days PFS Medical History Osteoarthritis of hand, left Chronic constipation Hypoactive bowel sounds Hand numbness Autoimmune thyroiditis Abdominal pain Inflammatory arthritis Breast mass, right Lung cyst Bilateral hand numbness Neck pain Dyslipidemia Post-surgical hypothyroidism Diabetic polyneuropathy associated with type 2 diabetes mellitus senior care (current) use of insulin Chronic idiopathic constipation Low vitamin D level Weight loss GERD (gastroesophageal reflux disease) Diabetes type 2, uncontrolled Fibromyalgia Insomnia Surgical History History of liver biopsy Hx of removal of cyst History of hysterectomy History of thyroidectomy, total History of esophagogastroduodenoscopy (EGD) Hx of colonoscopy (1998) Family History (Updated 02/22/23 @ 16:28 by Becca Newberry MD) Father Status post liver transplant, biliary anastomotic size mismatch Brother Cardiac arrest Mother No problems noted. Maternal Aunt Breast cancer Brother Essential hypertension Substance abuse Pure hypercholesterolemia Other Mental health problem Social History Household Members: None Housing: House Alcohol intake: never Patient Tobacco Use Status: Former Tobacco user Quit Date: 10+ yrs ago Tobacco use type: Cigarette Cigarettes Per Day: 7 Years Smoked: 6 e-Cigarette/Vaping Use: Never Used Second Hand Smoke Exposure: No Advance Directives Date on File: 07/15/20 service: No Current occupational status: disabled Current occupation: right hand Cognitive needs: No Hearing needs: No Vision needs: No Female Reproductive History Menstrual Age of Menarche: 12 Physical Exam Const Other: Well-nourished well-developed very friendly female awake alert and oriented x3 in no acute distress Extrem Other: Bilateral lower extremity examination shows good capillary refill, no skin lesions noted, normal sensation light touch Right calf examination shows tenderness along the mid aspect of her calf muscles, no overlying skin lesions, positive Homans sign Right knee examination shows a minimal effusion, minimal crepitus with range of motion, tenderness along her medial joint line, positive Tino's test, no instability Results Reviewed Results Reviewed: Standing full weight-bearing x-rays of the patient's right knee show minimal grade 1 diffuse joint space narrowing, no acute bony abnormalities Assessment & Plan Assessment & Plan (1) Right calf pain: Code(s): M79.661 - Pain in right lower leg (2) H/O arthroscopy of left knee: Code(s): Z98.890 - Other specified postprocedural states (3) Right knee pain: Code(s): M25.561 - Pain in right knee Plan Ms. Conley presents with right calf pain possibly due to a deep vein thrombosis. Thus, I will send her for an ultrasound for further evaluation. She also has progressively worsening right knee pain and mechanical symptoms most likely due to a tear of her medial meniscus. I will send her for an MRI of her right knee for further evaluation. She requests that her MRI be performed in an open machine. I have no problem with this. I will see the patient back once the MRI is completed to discuss the findings and treatment options. Patient did undergo left knee arthroscopic surgery on 01/21/2023. She will continue with her home stretching program. Feel free to call me at any time should questions regarding her orthopedic management arise. I spent 22 minutes in reviewing the patient's records and imaging studies, seeing the patient and documenting in the medical record. Orders: Orders MR knee RT wo con Today S83.241A - Other tear of medial meniscus, current injury, right knee, initial encounter US venous duplex LE RT Today M79.661 - Pain in right lower leg Coding Level of Care Code Est Pt Level 2 (06534) Diagnoses Right calf pain M79.661 H/O arthroscopy of left knee Z98.890 Right knee pain M25.561
== END 2023-03-14 13:36 | disposition home or self-care (01) ==
PROVIDERS: PCP Internal Medicine; Visit Provider Orthopaedic Surgery
DX: M25.561 Pain in right knee (principal); M79.661 Pain in right lower leg
CPT/HCPCS: 99213

== ENCOUNTER → 2023-03-14 13:00 | Outpatient (BNVA) | payer MEDICARE, MEDICAID, SELFPAY | PROVIDERS: PCP Internal Medicine; Visit Provider Orthopaedic Surgery | DX: M79.661 Pain in right lower leg (principal); M25.561 Pain in right knee; Z98.890 Other specified postprocedural states | CPT/HCPCS: 99212 ==

== ENCOUNTER 2023-03-15 14:44 | Outpatient (REF) | payer MEDICARE, MEDICAID, SELFPAY ==
--- NOTE | ~2023-03-15 | US_ITS ---
EXAMINATION: US VENOUS ULTRASOUND WITH DOPPLER LOWER EXTREMITY, RIGHT CLINICAL INFORMATION: Pain COMPARISON: Ultrasound venous Doppler lower extremity right from 04/03/2019 TECHNIQUE: Ultrasound of the deep veins is performed from the hip to the calf with compression sonography and color and pulse Doppler assessment. Spectral analysis with color-flow imaging is performed. FINDINGS: There is normal venous compression and respiratory variation and augmented flow. The visualized common femoral vein, superficial femoral vein, profunda femoral vein, popliteal vein, and the trifurcation region shows no evidence of deep venous thrombosis. Cystic focus in the popliteal fossa measuring 7.0 x 1.4 x 3.3 cm. Nonenlarged lymph node in the right proximal thigh measuring up to 6 mm in short axis. If the patient's symptoms persist, followup ultrasound in 5 days 7 days might be of value to exclude proximal propagation from a non-visualized calf vein. US/US venous duplex LE RT IMPRESSION: 1. No DVT demonstrated in the right lower extremity. 2. Cystic focus in the popliteal fossa measuring 7.0 x 1.4 x 3.3 cm. 3. Nonenlarged lymph node in the right proximal thigh measuring up to 6 mm in short axis.
== END 2023-03-15 14:45 | disposition home or self-care (01) ==
LOC: HO.US 14:44
PROVIDERS: PCP Internal Medicine; Visit Provider Orthopaedic Surgery
DX: M79.661 Pain in right lower leg (principal)
CPT/HCPCS: 93971

== ENCOUNTER 2023-03-30 14:02 | Outpatient (AMB) | payer MEDICARE, MEDICAID, SELFPAY ==
--- NOTE | 2023-03-30 14:05 | MHC.OFFVIS ---
Intake Vital Signs 03/30/23 14:07 Height 5 ft 7 in Weight 204 lb BMI 31.9 Intake Visit Reasons: ov- MRI review right knee Intake Note: Cece, 57 year old female, presents today to discuss her MRI results of her right knee. The patient did undergo left knee arthroscopic surgery on 01/21/2023. She reports mild intermittent discomfort in her left knee. She denies any fevers or chills. She describes her right knee pain as sharp and severe in nature. Most of her right knee pain is along the medial and lateral aspects of her knee. She has done physical therapy which aggravated her pain. She has also tried Tylenol and anti-inflammatory medicines which gave her minimal relief. She has had injections in the past which gave her no relief. She does walk with a cane. She states that her right knee will give out several times per day. 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 Allergies gadobutrol [From GADAVIST] Allergy (Severe, Verified 03/30/23 14:06) ANAPHYLAXIS hydroxychloroquine [Plaquenil] Allergy (Intermediate, Verified 03/30/23 14:06) rash,facial swelling Iodinated Contrast Media [CONTRAST, IV] Allergy (Intermediate, Verified 03/30/23 14:06) DIFF BREATHING levofloxacin [From LEVAQUIN] Allergy (Intermediate, Verified 03/30/23 14:06) ITCHY RASH pregabalin [From LYRICA] Allergy (Intermediate, Verified 03/30/23 14:06) STOMACH UPSET, Swelling tramadol Allergy (Intermediate, Verified 03/30/23 14:06) abdominal pain azathioprine Adverse Reaction (Intermediate, Verified 03/30/23 14:06) Nausea and Vomiting insulin aspart [From Novolog U-100 Insulin aspart] Adverse Reaction (Intermediate, Verified 03/30/23 14:06) chills, shaking, sweating, weakness and tachycardia Statins Support Allergy (Intermediate, Uncoded 03/30/23 14:06) transaminitis MRI contrast (gadolinium) Adverse Reaction (Severe, Uncoded 03/30/23 14:06) anaphylaxis [facility] Medical History Osteoarthritis of hand, left Chronic constipation Hypoactive bowel sounds Hand numbness Autoimmune thyroiditis Abdominal pain Inflammatory arthritis Breast mass, right Lung cyst Bilateral hand numbness Neck pain Dyslipidemia Post-surgical hypothyroidism Diabetic polyneuropathy associated with type 2 diabetes mellitus 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 Maternal Aunt Breast cancer Brother Essential hypertension Substance abuse Pure hypercholesterolemia Other Mental health problem Social History Household Members: None Housing: House Alcohol intake: never Patient Tobacco Use Status: Former Tobacco user Quit Date: 10+ yrs ago Tobacco use type: Cigarette Cigarettes Per Day: 7 Years Smoked: 6 e-Cigarette/Vaping Use: Never Used Second Hand Smoke Exposure: No Advance Directives Date on File: 07/15/20 service: No Current occupational status: disabled Current occupation: right hand Cognitive needs: No Hearing needs: No Vision needs: No Female Reproductive History Menstrual Age of Menarche: 12 Physical Exam Vital Signs: BMI result Body Mass Index 31.9 Const Other: Well-nourished well-developed very friendly female awake alert and oriented x3 in no acute distress Extrem Other: Bilateral lower extremity examination shows good capillary refill, no skin lesions noted, normal sensation light touch Right knee examination shows a minimal effusion, tenderness along her medial joint line, tenderness along her lateral joint line, positive Tino's test, no instability Left knee examination shows that the surgical incisions are well healed, no erythema, minimal discomfort with range of motion Results Reviewed Results Reviewed: MRI of the patient's right knee shows minimal diffuse degenerative changes, tearing of the medial and lateral menisci, no acute bony abnormalities Assessment & Plan Assessment & Plan (1) Left knee pain: Code(s): M25.562 - Pain in left knee (2) Right knee pain: Code(s): M25.561 - Pain in right knee Plan Ms. Conley is doing well after undergoing left knee arthroscopic surgery on 01/21/2023. She will continue with her activities as tolerated. The patient does have progressively worsening right knee pain and mechanical symptoms due to tearing of her lateral and medial menisci. I had a lengthy discussion with the patient regarding the treatment options. At point she has failed continued non operative treatments. The risks and benefits of right knee arthroscopic surgery were discussed at length with the patient. The patient wishes to proceed with surgery. She will contact my office to pick a surgery date. She will follow-up as instructed. Surgery will most likely involve right knee diagnostic arthroscopy with arthroscopic partial medial and lateral meniscectomies. Feel free to call me at any time should questions regarding her orthopedic management arise. I spent 22 minutes in reviewing the patient's records and imaging studies, seeing the patient and documenting in the medical record. Coding Level of Care Code Est Pt Level 2 (10973) Diagnoses Left knee pain M25.562 Right knee pain M25.561
[2023-03-30 14:07] VITALS: BMI 31.9
== END 2023-03-30 14:44 | disposition home or self-care (01) ==
PROVIDERS: PCP Internal Medicine; Visit Provider Orthopaedic Surgery
DX: S83.241A Other tear of medial meniscus, current injury, right knee, initial encounter (principal); M25.562 Pain in left knee
CPT/HCPCS: 99213

== ENCOUNTER → 2023-03-30 14:02 | Outpatient (BNVA) | payer MEDICARE, MEDICAID, SELFPAY | PROVIDERS: PCP Internal Medicine; Visit Provider Orthopaedic Surgery | DX: M25.562 Pain in left knee (principal); M25.561 Pain in right knee | CPT/HCPCS: 99212 ==

== ENCOUNTER 2023-06-08 14:20 | Outpatient (AMB) | payer MEDICARE, MEDICAID, SELFPAY ==
[2023-06-08 14:23] VITALS: BP 109/72; PULSE 81; O2SAT 97; BMI 29.9
--- NOTE | 2023-06-08 14:23 | MHC.OFFVIS ---
Intake Vital Signs 06/08/23 14:23 Height 5 ft 7 in Weight 191 lb BMI 29.9 BP 109/72 Blood Pressure Location Rt brachial Position Sitting Pulse 81 Pulse Source Doppler Pulse Oximetry (%) 97 Oxygen Delivery Method Room Air Intake Visit Reasons: asthma Allergies gadobutrol [From GADAVIST] Allergy (Severe, Verified 06/08/23 14:27) ANAPHYLAXIS hydroxychloroquine [Plaquenil] Allergy (Intermediate, Verified 06/08/23 14:27) rash,facial swelling Iodinated Contrast Media [CONTRAST, IV] Allergy (Intermediate, Verified 06/08/23 14:27) DIFF BREATHING levofloxacin [From LEVAQUIN] Allergy (Intermediate, Verified 06/08/23 14:27) ITCHY RASH pregabalin [From LYRICA] Allergy (Intermediate, Verified 06/08/23 14:27) STOMACH UPSET, Swelling tramadol Allergy (Intermediate, Verified 06/08/23 14:27) abdominal pain azathioprine Adverse Reaction (Intermediate, Verified 06/08/23 14:27) Nausea and Vomiting insulin aspart [From Novolog U-100 Insulin aspart] Adverse Reaction (Intermediate, Verified 06/08/23 14:27) chills, shaking, sweating, weakness and tachycardia Statins Support Allergy (Intermediate, Uncoded 03/30/23 14:06) transaminitis MRI contrast (gadolinium) Adverse Reaction (Severe, Uncoded 03/30/23 14:06) anaphylaxis HPI asthma HPI Details 58-year-old lady, former approximately 10 pack-year smoker, quit over 10 years prior referred for evaluation of biapical emphysema noted initially on cervical CT obtained for evaluation of bilateral arm tingling/pain.? After that patient had a dedicated CT chest that redemonstrated mild bilateral upper lobe predominant emphysema stable on follow-up CT.? Patient also complains of intermittent dyspnea on exertion, particularly when ascending stairs.? She denies cough, sputum production, wheezing, fevers or chills.? Patient does have a history of lung cancer in patient's paternal uncle.? 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 After the last office visit she was tried on Stiolto with some improvement in her symptoms. 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 Maternal Aunt Breast cancer Brother Essential hypertension Substance abuse Pure hypercholesterolemia Other Mental health problem Social History Household Members: None Housing: House Alcohol intake: never Patient Tobacco Use Status: Former Tobacco user Quit Date: 10+ yrs ago Tobacco use type: Cigarette Cigarettes Per Day: 7 Years Smoked: 6 e-Cigarette/Vaping Use: Never Used Second Hand Smoke Exposure: No Advance Directives Date on File: 07/15/20 service: No Current occupational status: disabled Current occupation: right hand Cognitive needs: No Hearing needs: No Vision needs: No Female Reproductive History Menstrual Age of Menarche: 12 Review of Systems Const Denies daytime sleepiness, Denies excessive sweating, Denies fatigue, Denies fever(s), Denies lethargy, Denies malaise, Denies night sweats, Denies snoring and Denies weight loss Eyes Denies blurry vision and Denies itchy eyes ENT Denies nasal congestion, Denies post nasal drip, Denies sinus pain, Denies sinus pressure and Denies other ( Thrush) Card Denies chest pain, Denies pedal edema, Denies dyspnea, Reports dyspnea on exertion, Denies orthopnea and Denies paroxysmal nocturnal dyspnea Resp Denies cough, Denies hemoptysis, Denies excessive phlegm production, Denies dyspnea, Reports dyspnea on exertion, Denies snoring and Denies wheezing GI Denies abdominal pain and Denies heartburn Musc Denies myalgias, Denies arthralgias and Denies joint swelling Skin/Breast Denies rash Neuro Denies memory loss and Denies seizure-like activity Psych Denies abnormal sleep pattern, Denies anxiety and Denies memory loss Endo Denies excessive sweating, Denies fatigue and Denies heat intolerance Leonides/Lymph Denies easy bruising Aller/Immun Denies itchy eyes, Denies seasonal rhinorrhea and Denies wheezing Physical Exam Vital Signs: Last Vital Signs Pulse 81 06/08/23 14:23 BP 109/72 06/08/23 14:23 Pulse Ox 97 06/08/23 14:23 Oxygen Delivery Method Room Air 06/08/23 14:23 BMI result Body Mass Index 29.9 Const General: no acute distress and alert Nutritional Appearance: not obese Orientation/consciousness: Other orientation findings ( oriented) HEENT Head: Yes atraumatic Eyes General: appearance normal, both eyes and all related structures Sclerae: sclerae normal EOM: EOMs intact bilaterally Neck Neck: Yes supple Lymphatic: no lymphadenopathy noted Resp Effort & Inspection: normal respiratory effort and no use of accessory muscles Auscultation: clear to auscultation bilaterally Cardio Rate: regular rate Rhythm: regular rhythm Heart sounds: no gallops, no murmurs and no rubs Skin General skin exam: other ( warm) Extrem General: No clubbing, No cyanosis and No edema Assessment & Plan Assessment & Plan (1) Dyspnea on exertion: Code(s): R06.00 - Dyspnea, unspecified (2) Autoimmune hepatitis: Code(s): K75.4 - Autoimmune hepatitis Plan Unclear etiology. Essentially negative pulmonary workup. Does have some symptomatic response to Stiolto. Continue on Stiolto and albuterol MDI. Coding Level of Care Code Est Pt Level 4 (50024) Diagnoses Dyspnea on exertion R06.00 Autoimmune hepatitis K75.4
== END 2023-06-08 14:44 | disposition home or self-care (01) ==
PROVIDERS: PCP Internal Medicine; Visit Provider Internal Medicine Pulmonary Disease
DX: R06.00 Dyspnea, unspecified (principal); K75.4 Autoimmune hepatitis
CPT/HCPCS: 99214

== ENCOUNTER → 2023-06-08 14:20 | Outpatient (BNVA) | payer MEDICARE, MEDICAID, SELFPAY | PROVIDERS: PCP Internal Medicine; Visit Provider Internal Medicine Pulmonary Disease | DX: R06.00 Dyspnea, unspecified (principal); K75.4 Autoimmune hepatitis | CPT/HCPCS: 99212 ==

== ENCOUNTER 2023-06-13 14:41 | Outpatient (AMB) | payer MEDICARE, MEDICAID, SELFPAY ==
[2023-06-13 14:47] VITALS: BP 131/61; PULSE 64; BMI 29.7
--- NOTE | 2023-06-13 14:47 | MHC.OFFVIS ---
Intake Vital Signs 06/13/23 14:47 Height 5 ft 7 in Weight 189 lb 9.561 oz BMI 29.7 BP 131/61 Blood Pressure Location Lt brachial Position Sitting Pulse 64 Pulse Source Pulse Oximeter Intake Visit Reasons: discuss prep Intake Note: Pt presents to the office today to discuss colo prep. Pt states she is having issues with constipation lately and having bright red in her stool. Pt denies any nausea or vomiting. Allergies gadobutrol [From GADAVIST] Allergy (Severe, Verified 06/13/23 14:50) ANAPHYLAXIS hydroxychloroquine [Plaquenil] Allergy (Intermediate, Verified 06/13/23 14:50) rash,facial swelling Iodinated Contrast Media [CONTRAST, IV] Allergy (Intermediate, Verified 06/13/23 14:50) DIFF BREATHING levofloxacin [From LEVAQUIN] Allergy (Intermediate, Verified 06/13/23 14:50) ITCHY RASH pregabalin [From LYRICA] Allergy (Intermediate, Verified 06/13/23 14:50) STOMACH UPSET, Swelling tramadol Allergy (Intermediate, Verified 06/13/23 14:50) abdominal pain azathioprine Adverse Reaction (Intermediate, Verified 06/13/23 14:50) Nausea and Vomiting insulin aspart [From Novolog U-100 Insulin aspart] Adverse Reaction (Intermediate, Verified 06/13/23 14:50) chills, shaking, sweating, weakness and tachycardia Statins Support Allergy (Intermediate, Uncoded 06/13/23 14:50) transaminitis MRI contrast (gadolinium) Adverse Reaction (Severe, Uncoded 06/13/23 14:50) anaphylaxis HPI HPI Comments History of Present Illness Details This is a 56-year-old female past medical history of fibromyalgia, H pylori gastritis, who is following up for autoimmune hepatitis (with grade 2-3 activity and stage 3-4 fibrosis biopsy 11/2021) Recap: 10/2021 Seen for intermittent RUQ pain and elevated LFTs. Workup so far has ruled out hepatitis-B and hepatitis-C. KIRA screen was negative. Celiac serology was negative for tissue transglutaminase IgA. ASMA was positive at 56. Antimitochondrial antibody negative. Of note a previously check total IgG was elevated at 1884 in 2019. Endoscopy: EGD 05/2020: Performed at [facility] by Dr. Chappell-normal esophagus. Gastritis-biopsies positive for H pylori. Normal duodenum. (To note, I am unable to see documentation of test of cure for H.pylori.) Colonoscopy 2018 was poor prep and recommendation was made to repeat in a year. To the extent visualized, the mucosa was reported as normal. At that visit plan was to recheck LFTs, A1AT, Anti-liver kidney, IgG. Also complained of dysphagia and barium swallow ordered. 11/2021. Continues to have intermittent RUQ discomfort. Now also noticing numbness in 3rd and 4th digits of RIGHT hand x 1 week. Denies any pain or pallor in these fingers. Says the numbness in 3rd finger is resolving but cont to have altered sensation in ring finger. Dysphagia is persistent too. Barium swallow was reviewed and negative for any gross dysmotility, stricture/web/ring. Pt describes dysphagia to specific textures such as hamburger, bread, steak etc. Has hx of environmental allergies and asthma. Reports weight loss of 20 lbs in the past one year - although not sure if due to decreased appetite from RUQ pain vs dietary modulation. 12/2021: Patient underwent liver biopsy on 12/18. Consistent with autoimmune hepatitis as suspected, with grade 2-3 activity and stage 3-4 fibrosis. Reports persistent sharp pain since the biopsy, which has slowly been improving. Comes in accompanied by her . She is quite anxious about the pathology results, despite reassurance multiple times at biopsies do not show cancer, but brother inflammation secondary to autoimmune hepatitis. To recap, her father had history of cirrhosis and from complications. Reviewed the management plan in detail with the patient as well as her spouse. Her blood sugars are running high in the last 1 week between 300-400. Patient currently does not have an agricultural real estate agent. She plans to reach out to her primary care provider about adjustment of her medications. She also has history of rheumatoid arthritis, used to be on methotrexate, but currently not on any therapy. Has not seen her provider Brie Trinh in 6 months. EGD and colonoscopy has already been scheduled for this February. 01/29/22: Patient presents today for follow-up 4 week follow-up. Unfortunately, labs were not done, therefore TPMT status is still unknown. I also am not aware of response to prednisone. Patient reports consistently high blood sugars above 300. She also describes symptoms of nausea, dizziness, she to anus, and leg swelling. Also continues to have intermittent right upper quadrant discomfort. 12/2/22: Please see documentation from 02/23 re recent issues reviewed over phone call. In summary, patient is persistently having sugars above 350. She had a fasting blood sugar 489 on 02/23. In addition, also complain of whitish discoloration of her tongue associated with dysguesia and pain. Patient attributed these to her steroid therapy and stop taking her steroids for 3-4 days. She also had an episode of severe abdominal pain nausea and vomiting waking her up from night. Patient reports that blood sugars are now better controlled with up titration of insulin, and dietary discretion. Fasting blood sugar today was 228 , which is still high, but much better than 489. She also started applying coconut oil to her tongue, which has calmed down the burning sensation. Patient also reports a fall that she had yesterday, as she was going downstairs. She denies any presyncope or loss of consciousness, but also does not remember tripping. She is not entirely sure how she fell, but took a significant hit on her right side of the body, with bruising over her right arm and right leg. She tells me she has been noticing that she bruises more easily now. She reports taking azathioprine 100 mg once daily. Has resumed her prednisone taper 30 mg once daily. Has 3-4 days still left, consistent with her report of previously skipping medication. She was counseled again on not stopping her prednisone suddenly, to avoid withdrawal. She was also encouraged to keep compliance was a typewritten for continued remission of autoimmune hepatitis. She has already communicated with her infection control practitioner and has been started on alendronate for osteopenia. EGD/colo 03/25/22: Tortuous esophagus, otherwise normal mucosa ?? Portal hypertensive gastropathy vs H pylori gastritis (biopsy) Abnormal duodenal mucosa (biopsy) Poor prep colon. Exam inadequate for CRC screening. External hemorrhoids Path: Duodenum, biopsy: Duodenal mucosa with preserved villous architecture and focally increased intraepithelial lymphocytes (see comment). Stomach, random, biopsy: Gastric antral and body mucosa with mild to moderate chronic active gastritis and few Helicobacter pylori organisms identified; negative for intestinal metaplasia and dysplasia. 04/07/2022: Reports that had 2 more episodes of abdominal discomfort, nausea vomiting and diarrhea. First in early February, and then again in late February. She reviewed the side effects of all of her recently started medication, and since then has stopped her azathioprine, alendronate, rosuvastatin. She does tell me that during these episodes, her sugars were very high, and her Glucometer just showed that the sugars were >500 but she does not know the exact number. Currently, main complaint is occasional fleeting spasm like pain and left lower quadrant the last 30 seconds, specially on movements. EGD and colonoscopy findings reviewed. Will be booked for another colonoscopy later this year due to inadequate prep. 04/16/22: From phone call discussion: Reviewed results with Cece - LFTs have started to go up as well. Labs reviewed from 04/09, no pancreatitis. Likely has drug related intolerance, which was confirmed on re-exposure (and as expected, sx onset was fairly quick on re-exposure). Counseled that can occur in almost 5% pts. Will book for office visit to review alternatives 6 MP, MMF.. 04/20/22: No further episodes of abd pain, N,V since discontinuation of Azathioprine. Reviewed alternatives including 6-mercaptoputine and mycophenolate. Given excellent response to azathioprine and non-allergic intolerance to side effects, will first trial 6MP. Pt was counseled re dosing, monitoring and possible side effects. 05/21/22: No gastrointestinal complaints today. Has been tolerating her mercaptopurine 50mg without any issues. Does not report any abdominal pain, nausea, vomiting, diarrhea. Prednisone taper continues on 20mg dosing which she will complete tomorrow. Sugars remain high often above 300. Looking forward to her appointment with agricultural real estate agent next month. She also had an eye exam last week and does not report any abnormalities. Labs from last week have already been reviewed with the patient over the phone, but to recap, LFTs have all normalized and IgG is also now back to normal. 06/09/22:No acute GI issues. Down to prednisone 15mg a nd has a week left . Tolerating 6-MP 50mg once daily. L abs reviewed which were most signifi cant for BG >400. Insulin increased by her PCP. Also s [facility] later this month . Supplements have already been sent for low Vit D. Pt has been quite st ressed recently rich ramey to her [facility]'s [facility]. Was recently diagnosed with dem entia. She plans t o take care of her at home but will likely have to mov e to a different p lace with more spa ce. Very overwhelm ed with her parent 's declining cogni tive dysfunction. 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 10/15/22: Has a lot on her plate these days. Brother suddenly in June - waiting on autopsy results still. Was very depressed during the grieving period and was not taking her medications for most of the June including 6-MP. Then recently in August also possibly tore her L meniscus - awaiting MRI through ortho. Postponed her visit with me initially scheduled 09/13 to today for that reason as well. Has also not scheduled her colo yet as has very limited mobility. In terms of AIH therapy, finished her pred taper in July. Resumed taking 6-MP towards the end of July. Due for labs. Sugars are now better controlled but having more lows now. Tells me CGM was not covered by her insurance. Sees Dr López. 11/30/22: Visit requested by the pt to discuss her medical therapy with the daughter as well. Daughter Milena was on phone for the entire encounter. Pt currently reports increased fatigue, hunger, weight gain of 6-8 lbs in the last one month and uncontrolled BGs. Has been on prednisone, this is week 2 and she has started the taper. Current dose 30mg. Reports daily 6-MP now. US Abd 11/15/22: Enlarged slightly echogenic liver with question mild cirrhotic changes. Increasing intra and extrahepatic biliary duct dilatation. Post cholecystectomy. Slightly enlarged spleen. 01/06/23: [place]: 1. Poor prep colon 2. Total of 1 polyp removed 3. Internal and external hemorrhoids Path: Colon, ascending, polyp: Colonic mucosa with no specific change; negative for adenomatous dysplasia 01/19/23: Booked as a telehealth visit for post-colo follow up. To recall this was the 2nd attempt for colo, last year was also poor prep. Msg already sent to schedulers to rebook her later next year. In terms of AIH, LFTs normal. IgG improved from 2312 to 1797 after initiation of prednisone. Completed prednisone taper last month. Continues mercaptopurine 50mg daily and endorses better compliance now. Has also been referred to [facility] for evaluation. Booked in Apr 2023 but on cancellation list for sooner appt. Tells me she is booked for knee surgery this month. 06/13/23: Here for 6 month follow up. Main CC today is increasing fatigue and worsening constipation. Reports no abd pain, N,V. Had LEFT knee arthroplasty recently and cont to follow up with orthopedics. In terms of AIH, reports good compliance with medications. Is due for abd imaging for both AIH as well as bile duct dilation noted on US 10/2022. ? seems may not have been booked still even though order placed back in Dec. Pt is also due for repeat colo as previous one was poor prep x 2. 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 Maternal Aunt Breast cancer Brother Essential hypertension Substance abuse Pure hypercholesterolemia Other Mental health problem Social History Household Members: None Housing: House Alcohol intake: never Patient Tobacco Use Status: Former Tobacco user Quit Date: 10+ yrs ago Tobacco use type: Cigarette Cigarettes Per Day: 7 Years Smoked: 6 e-Cigarette/Vaping Use: Never Used Second Hand Smoke Exposure: No Advance Directives Date on File: 07/15/20 service: No Current occupational status: disabled Current occupation: right hand Cognitive needs: No Hearing needs: No Vision needs: No Female Reproductive History Menstrual Age of Menarche: 12 Review of Systems Const All systems reviewed & are unremarkable except as noted in HPI and below Physical Exam Vital Signs: Last Vital Signs Pulse 64 06/13/23 14:47 BP 131/61 06/13/23 14:47 BMI result Body Mass Index 29.7 NAD Nonicteric Speaking in full sentences abd soft nontender A/Ox3, normal gait Assessment & Plan Assessment & Plan (1) Autoimmune hepatitis: Code(s): K75.4 - Autoimmune hepatitis (2) Low vitamin D level: Code(s): R79.89 - Other specified abnormal findings of blood chemistry (3) Osteopenia: Code(s): M85.80 - Other specified disorders of bone density and structure, unspecified site (4) Encounter for screening colonoscopy: Code(s): Z12.11 - Encounter for screening for malignant neoplasm of colon (5) Dilated bile duct: Code(s): K83.8 - Other specified diseases of biliary tract (6) Hypothyroidism: Code(s): E03.9 - Hypothyroidism, unspecified (7) Chronic constipation: Code(s): K59.09 - Other constipation Plan #AIH: Patient has biopsy-proven autoimmune hepatitis. Unable to tolerate Azathioprine due to side effects (abd pain, N,V - lipase normal). Sx returned within a few hours on rechallenge. Started on 6-MP in Mar 2022. Has been tolerating it without any side effects so far. White count WNL. Had periods of nonadherence between June and August of this year and therefore repeat labs were ordered which showed elevated IgG > 2000 in Oct 2022, with normal LFTs. Started on Prednisone 40 x1 week followed by taper which was completed in Nov 2022 with improvement in IgG levels. She was also scheduled for MRI to further investigate dilated bile ducts however deferred this due to knee injury. This was then booked for Mar 2023 but appears never took place. Will check with team to make sure this is booked. Will also repeat LFTs. Plan: Check CBC, liver panel and IgG Continue 6-MP 50mg. MRI Abd liver protocol fannie to r/o AIH-PSC overlap - will follow up with OA to ensure gets booked Osteopenia: - Not on therapy per pt - although med list mentions Alendronate - Due for repeat DEXA - Cont Vit D supplements. Check Vit D levels. Transplant candidacy: - Advanced fibrosis/early cirrhosis without any CSPH. Will follow up on [facility] Hep referral - requested in Nov 2022. CRC screening: - Incomplete colo 02/2022 and now again 12/2022 due to poor prep. - Advised miralax BID x 3 days and to take CLD x 1.5 days before the colo. - Total 6000ml GOLYTELY Rxed - pt to take 2000ml the day before the procedure in AM, then again in PM and then a 3rd time 6 hours before the colonoscopy. #Chronic constipation: Reviewed that may need further titration of levothyroxine as last TSH was noted to be 17.4 in Jan 2023. Other than this would also recommend good glycemic control as longstanding DM can also lead to colonic dymotilty. Plan: - Recheck TSH - Add fiber and plenty of hydration - Can take senna and miralax and titrate to effect Follow-up after colo Orders: Orders Complete Blood Count no Diff 06/18/23 K75.4 - Autoimmune hepatitis TSH reflex Free T4 06/18/23 E03.9 - Hypothyroidism, unspecified Vitamin D 25-OH Total 06/18/23 E55.9 - Vitamin D deficiency, unspecified Ferritin 06/18/23 G25.81 - Restless legs syndrome Immunoglobulin G 06/18/23 K75.4 - Autoimmune hepatitis Liver Panel 06/18/23 K75.4 - Autoimmune hepatitis XR DEXA axial skeleton 06/13/23 M85.80 - Other specified disorders of bone density and structure, unspecified site, Z79.52 - termite 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
== END 2023-06-13 15:30 | disposition home or self-care (01) ==
PROVIDERS: PCP Internal Medicine; Visit Provider Internal Medicine
DX: K75.4 Autoimmune hepatitis (principal); R79.89 Other specified abnormal findings of blood chemistry; M85.80 Other specified disorders of bone density and structure, unspecified site; Z12.11 Encounter for screening for malignant neoplasm of colon; K83.8 Other specified diseases of biliary tract; E03.9 Hypothyroidism, unspecified; K59.09 Other constipation
CPT/HCPCS: 99214

== ENCOUNTER → 2023-06-13 14:41 | Outpatient (BNVA) | payer MEDICARE, MEDICAID, SELFPAY | PROVIDERS: PCP Internal Medicine; Visit Provider Internal Medicine | DX: K75.4 Autoimmune hepatitis (principal); R79.89 Other specified abnormal findings of blood chemistry; M85.80 Other specified disorders of bone density and structure, unspecified site; K83.8 Other specified diseases of biliary tract; E03.9 Hypothyroidism, unspecified; K59.09 Other constipation; Z12.11 Encounter for screening for malignant neoplasm of colon | CPT/HCPCS: 99212 ==

== ENCOUNTER 2023-06-18 07:05 | Outpatient (REF) | payer MEDICARE, MEDICAID, SELFPAY ==
[2023-06-18 07:49] LABS: Hematocrit 37.5 % (37.0-47.0); Hemoglobin 12.7 g/dl (12.0-16.0); Mean Corpuscular HGB Conc 33.9 g/dl (31.0-35.0); Mean Corpuscular Hemoglobin 29.7 pg (27.0-33.0); Mean Corpuscular Volume 87.6 fL (80.0-98.0); Mean Platelet Volume 9.3 fL (9.4-12.3); Platelet Count 230 X10*3/uL (160-400); Red Blood Count 4.28 X10*6/uL (4.20-5.50); Red Cell Distribution Width 12.9 % (11.0-16.0); White Blood Count 3.6 X10*3/uL (4.8-10.8)
[2023-06-18 08:16] LABS: Alanine Aminotransferase 15 U/L (0-31); Albumin Level 4.3 g/dL (3.5-5.0); Alkaline Phosphatase 129 U/L (39-117); Aspartate Amino Transferase 12 U/L (5-31); Bilirubin Direct 0.2 mg/dL (0.0-0.5); Bilirubin Total 0.4 mg/dL (0.0-1.0); Total Protein 8.5 g/dL (6.5-8.0)
[2023-06-18 08:32] LABS: Ferritin 107 ng/mL (10-250); TSH reflex Free T4 11.63 uIU/mL (0.32-4.0); Vitamin D 25-OH Total 26.1 ng/mL (>30)
[2023-06-18 09:05] LABS: Free T4 (Free Thyroxine) 1.06 ng/dL (0.71-1.85)
[2023-06-20 13:54] LABS: Immunoglobulin G 2338 mg/dL (600-1640)
== END 2023-06-18 07:06 | disposition home or self-care (01) ==
LOC: HO.LAB 07:05
PROVIDERS: Internal Medicine; PCP Internal Medicine; Visit Provider Internal Medicine
DX: E55.9 Vitamin D deficiency, unspecified (principal); K75.4 Autoimmune hepatitis; G25.81 Restless legs syndrome
CPT/HCPCS: 36415; 80076; 82306; 82728; 82784; 84439; 84443; 85027

== ENCOUNTER 2023-06-22 13:19 | Outpatient (AMB) | payer MEDICARE, MEDICAID, SELFPAY ==
--- NOTE | 2023-06-22 13:41 | A.OFFPC_ITS ---
Vital Signs 06/22/23 13:51 Height 5 ft 7 in Weight 185 lb BMI 29.0 BP 122/80 Blood Pressure Location Lt brachial Position Sitting Intake Visit Reasons: 4 month f/u Intake Note: Patient here for a 4 month follow up, c/o lesion on left side of upper back/ discomfort, trouble sleeping, back of leg shooting pain, right knee pain Prosthodontist Required: No Accompanied by: Mother Allergies gadobutrol [From GADAVIST] Allergy (Severe, Verified 06/22/23 13:59) ANAPHYLAXIS hydroxychloroquine [Plaquenil] Allergy (Intermediate, Verified 06/22/23 13:59) rash,facial swelling Iodinated Contrast Media [CONTRAST, IV] Allergy (Intermediate, Verified 06/22/23 13:59) DIFF BREATHING levofloxacin [From LEVAQUIN] Allergy (Intermediate, Verified 06/22/23 13:59) ITCHY RASH pregabalin [From LYRICA] Allergy (Intermediate, Verified 06/22/23 13:59) STOMACH UPSET, Swelling tramadol Allergy (Intermediate, Verified 06/22/23 13:59) abdominal pain azathioprine Adverse Reaction (Intermediate, Verified 06/22/23 13:59) Nausea and Vomiting insulin aspart [From Novolog U-100 Insulin aspart] Adverse Reaction (Intermediate, Verified 06/22/23 13:59) chills, shaking, sweating, weakness and tachycardia Statins Support Allergy (Intermediate, Uncoded 06/22/23 13:59) transaminitis MRI contrast (gadolinium) Adverse Reaction (Severe, Uncoded 06/22/23 13:59) anaphylaxis Medication List - Last Reconciled 06/22/23 by Becca Newberry MD albuterol sulfate 90 mcg/actuation 2 puffs inhalation Q6H PRN 30 days alendronate 70 mg PO QWEEK 90 days [bed rails As directed] bisacodyl 5 mg PO BEDTIME blood sugar diagnostic (FreeStyle Lite Strips) As directed 3 times a day blood-glucose meter (FreeStyle Lite Meter kit) As directed cholecalciferol (vitamin D3) 50 mcg PO DAILY 90 days ergocalciferol (vitamin D2) 1,250 mcg PO QWEEK 90 days flash glucose scanning reader (FreeStyle Liza 2 [place]) As directed flash glucose sensor (FreeStyle Liza 2 Sensor kit) As directed -change every 14 days fluconazole 150 mg PO Q3D 2 doses folic acid 1 mg PO DAILY ibuprofen 600 mg PO TID 7 days insulin degludec (Tresiba FlexTouch U-200 insulin) 175 units (0.875 mL) subcut BEDTIME 30 days lancets (FreeStyle Lancets) Use 1 lancet three times a day levothyroxine 200 mcg PO DAILY 90 days levothyroxine (Synthroid) 25 mcg PO DAILY 90 days loratadine 10 mg PO DAILY 90 days mercaptopurine 50 mg PO DAILY omeprazole 40 mg (2 x 20 mg) PO DAILY 90 days ondansetron HCl 8 mg PO DAILY PRN 30 days oxycodone 10 mg PO Q8H PRN 30 days peg 3350-electrolytes 236-22.74-6.74 -5.86 gram (Golytely) 240 mL PO Q10M pen needle, diabetic (BD Ultra-Fine Alivia Pen Needle) As directed 4x/day ropinirole 0.25 mg PO BEDTIME 30 days ropinirole 0.25 mg PO DAILY rosuvastatin 10 mg PO DAILY 90 days tiotropium-olodaterol 2.5-2.5 mcg/actuation (Stiolto Respimat) 2 puffs inhalation DAILY 30 days underpads (Bed Underpads) As directed zolpidem 10 mg PO BEDTIME 30 days Tobacco use date assessed: 06/22/23 Dental Screening Dental Screen Date: 06/22/23 Did you have a dental visit in the last 12 months?: Yes Did you have a dental problem in the last 6 months where you did not have access to dental care?: No Was dental information given to patient?: Patient has dentist HPI HPI Comments History of Present Illness Details This is a 58-year-old female with diabetes mellitus type 2, autoimmune hepatitis, mild major depression, postsurgical hypothyroidism and seronegative rheumatoid arthritis that comes today accompanied by mother complaining of right leg pain that has been present for few months. Ultrasound of the right leg will be order to be done today to rule out DVT. Also has a pain in right scapula with a skin lesion and x-ray will be ordered. A1c not on goal and she admits that she stopped taking insulin for about 2 months. This is due to depression but declines any medication or counseling. TSH still elevated and I will increase levothyroxine from 225 mcg to 250 mcg. TSH will be repeated in 6 weeks. Autoimmune hepatitis has been stable on mercaptopurine and this is follow by Gastroenterology. Has diffuse joint pain and has seronegative rheumatoid arthritis and will be refer again to rheumatology. No chest pain or shortness of breath. [facility] Medical History (Updated 06/22/23 @ 14:18 by Becca Newberry MD) Osteoarthritis of hand, left Chronic constipation Hypoactive bowel sounds Hand numbness Autoimmune thyroiditis Abdominal pain Inflammatory arthritis Breast mass, right Lung cyst Bilateral hand numbness Neck pain Dyslipidemia Post-surgical hypothyroidism Diabetic polyneuropathy associated with type 2 diabetes mellitus long term (current) use of insulin Chronic idiopathic constipation Low vitamin D level Weight loss GERD (gastroesophageal reflux disease) Diabetes type 2, uncontrolled Fibromyalgia Insomnia Surgical History History of liver biopsy Hx of removal of cyst History of hysterectomy History of thyroidectomy, total History of esophagogastroduodenoscopy (EGD) Hx of colonoscopy (1998) Family History Father Status post liver transplant, biliary anastomotic size mismatch Brother Cardiac arrest Mother No problems noted. Maternal Aunt Breast cancer Brother Essential hypertension Substance abuse Pure hypercholesterolemia Other Mental health problem Social History Household Members: None Housing: House Alcohol intake: never Patient Tobacco Use Status: Former Tobacco user Quit Date: 10+ yrs ago Tobacco use type: Cigarette Cigarettes Per Day: 7 Years Smoked: 6 e-Cigarette/Vaping Use: Never Used Second Hand Smoke Exposure: No Advance Directives Date on File: 07/15/20 service: No Current occupational status: disabled Current occupation: right hand Cognitive needs: No Hearing needs: No Vision needs: No Female Reproductive History Menstrual Age of Menarche: 12 Questionnaire PHQ-9 Over the last 2 weeks, how often have you been bothered by any of the following problems? 1. Little interest or pleasure in doing things: nearly every day 2. Feeling down, depressed, or hopeless: nearly every day 3. Trouble falling or staying asleep, or sleeping too much: nearly every day 4. Feeling tired or having little energy: more than half the days 5. Poor appetite or overeating: not at all 6. Feeling bad about yourself - or that you are a failure or have let yourself or your family down: several days 7. Trouble concentrating on things, such as reading the newspaper or watching television: several days 8. Moving or speaking so slowly that other people could have noticed. Or the opposite - being so fidgety or restless that you have been moving around a lot more than usual: several days 9. Thoughts that you would be better off or of hurting yourself in some way: not at all Total score: 14 Depression Screening Interpretation: Positive Depression Screening Follow-up: Existing condition and Declines treatment Depression Screening Done: Yes 45008 - PHQ-9 Billing: Yes Source: Developed by Drs. Esdras Tang, April Mathews, Bobby Toussaint and colleagues, with an educational antonella from [employer] Thrive Questionnaire Date Thrive assessed: 06/22/23 I am a: Patient What is your living situation today?: I have a steady place to live Within the past 12 months, did the food you bought not last and you didn't have the money to get more?: Never true Within the past 12 months, did you worry whether your food would run out before you got money to buy more?: Never true Do you have trouble paying for medicines?: No Do you have trouble getting transportation to medical appointments?: No Do you have trouble paying your heating and electricity bill?: No Do you have trouble taking care of your child, family member or friend?: No Do you have trouble with day-to-day activities such as bathing, preparing meals, shopping, managing finances, etc.?: No Are you currently unemployed and looking for a job?: No Are you interested in more education?: No Please select the resources that you would like help with: None Currently or been in a relationship where the following occur: no concerns reported THRIVE Score: 0 AUDIT C Alcohol Use Questionnaire (AUDIT-C) 1. How often do you have a drink containing alcohol?: Never Total Score: 0 HATTIE-7 AMB Questionnaire HATTIE-7 Date HATTIE - 7 assessed: 06/22/23 Feeling nervous, anxious, or on edge: 3 = Nearly every day Not being able to stop or control worryin = More than half the days Worrying too much about different things: 3 = Nearly every day Trouble relaxin = Several days Being so restless that it is hard to sit still: 1 = Several days Becoming easily annoyed or irritable: 1 = Several days Feeling afraid as if something awful might happen: 0 = Not at all Total HATTIE-7 score (0-4 normal; 5-9 mild; 10-14 moderate; 15-21 severe): 11 Source: Developed by Drs. Esdras Tang, April Mathews, Bobby Toussaint and colleagues, with an educational antonella from [employer] HATTIE-7 Assessment Billing HATTIE-7 Assessment Tool: HATTIE-7 Assessment 55195 Review of Systems Const All systems reviewed & are unremarkable except as noted in HPI and below Eyes Reports no additional complaints, Denies change in vision and Denies other visual disturbances Card Denies chest pain at rest, Denies chest pain with activity, Denies edema, Denies irregular heart rhythm, Denies claudication, Denies dyspnea, Denies dyspnea on exertion, Denies orthopnea, Denies paroxysmal nocturnal dyspnea and Denies slow heart rate Resp Denies cough, Denies dyspnea and Denies dyspnea on exertion GI Denies abdominal pain, Denies change in bowel habits, Denies excessive flatus, Denies nausea and Denies vomiting Denies urinary incontinence, Denies urinary hesitancy and Denies urinary urgency Physical exam (Primary Care) Vital Signs: Last Vital Signs BP 122/80 06/22/23 13:51 BMI result Body Mass Index 29.0 Tobacco/Smoking Status: Tobacco use Status Tobacco use date assessed 06/22/23 06/22/23 13:55 Patient Tobacco Use Status Former Tobacco user 06/22/23 13:44 Tobacco use type Cigarette 06/22/23 13:44 e-Cigarette/Vaping Use Never Used 06/22/23 13:44 PHQ-9: PHQ-9 Score PHQ-9: Total score 14 06/22/23 14:41 Depression Screening Interpretation: Positive Depression Screening Follow-up: Existing condition and Declines treatment Thrive Assessment: Date of Thrive Assessment Date Thrive assessed 06/22/23 06/22/23 13:45 Currently or been in a relationship where the following occur: no concerns re ported Resp Effort & Inspection: normal respiratory effort Auscultation: clear to auscultation bilaterally Cardio Jugular venous distension: no JVD Rate: regular rate Rhythm: regular rhythm Heart sounds: S1 normal heart sound present and S2 normal heart sound present Extrem Other: Right leg Imtiaz's positive Results AMB Hemoglobin A1c AMB Hemoglobin A1c 10.6 % Last Edit by LINDA Crump on 06/22/23 13: 56 Results Reviewed Results Reviewed: Laboratory Last Values Hgb A1c (Clinic) 10.6 % (4.0-6.0) H 06/22/23 13:55 Assessment and Plan Assessment & Plan (1) Mild major depression: Code(s): F32.0 - Major depressive disorder, single episode, mild Plan: Consider counseling or medication. (2) Right leg pain: Code(s): M79.604 - Pain in right leg Plan: Ultrasound of right leg ordered. (3) Autoimmune hepatitis: Code(s): K75.4 - Autoimmune hepatitis Plan: Continue mercaptopurine. Follow-up with Gastroenterology. (4) Diabetes type 2, uncontrolled: Code(s): E11.65 - Type 2 diabetes mellitus with hyperglycemia Qualifiers: Glycemic state: with hyperglycemia Qualified Code(s): E11.65 - Type 2 diabetes mellitus with hyperglycemia Plan: I will start her on Jardiance because she declines the use of insulin. A1c goal is equal or less than 7%. (5) Post-surgical hypothyroidism: Code(s): E89.0 - Postprocedural hypothyroidism Plan: Continue levothyroxine. (6) Seronegative rheumatoid arthritis: Comment: Methotrexate 11/2020-July 2021. Code(s): M06.00 - Rheumatoid arthritis without rheumatoid factor, unspecified site Plan: Referred to rheumatology. Orders: Orders AMB Hemoglobin A1c Today E11.65 - Type 2 diabetes mellitus with hyperglycemia US venous duplex LE RT Today M79.604 - Pain in right leg XR scapula RT Today M89.8X1 - Other specified disorders of bone, shoulder Thyroid Stimulating Hormone 6 Weeks E06.3 - Autoimmune thyroiditis Complete Blood Count Auto Diff 4 Months D64.9 - Anemia, unspecified IRON PROFILE 4 Months D64.9 - Anemia, unspecified Vitamin B12 and Folate 4 Months E53.8 - Deficiency of other specified B group vitamins Comprehensive [place]. Panel Fast 4 Months E11.42 - Type 2 diabetes mellitus with diabetic polyneuropathy BECCA Reflex Titer and Pattern 4 Months M06.00 - Rheumatoid arthritis without rheumatoid factor, unspecified site Complement C4 4 Months M06.00 - Rheumatoid arthritis without rheumatoid factor, unspecified site Erythrocyte Sedimentation Rate 4 Months M06.00 - Rheumatoid arthritis without rheumatoid factor, unspecified site Lipid Panel 4 Months E78.5 - Hyperlipidemia, unspecified Microalbumin, Random (w Creat) 4 Months E11.9 - Type 2 diabetes mellitus without complications Vitamin D 25-OH Total 4 Months E55.9 - Vitamin D deficiency, unspecified Cyclic Citrullinated Peptide 4 Months M06.00 - Rheumatoid arthritis without rheumatoid factor, unspecified site Complement C3 4 Months M06.00 - Rheumatoid arthritis without rheumatoid factor, unspecified site Anti DNA DS Antibody 4 Months M06.00 - Rheumatoid arthritis without rheumatoid factor, unspecified site Referrals Rheumatology Referral M06.00 - Rheumatoid arthritis without rheumatoid factor, unspecified site Medications: New empagliflozin (Jardiance) 10 mg PO DAILY 90 days 90 tabs 1RF E11.65 - Type 2 diabetes mellitus with hyperglycemia levothyroxine 50 mcg PO DAILY 90 days 90 tabs 1RF E06.3 - Autoimmune thyroiditis Discontinued levothyroxine (Synthroid) Discontinued Reason: No Longer Medically Relevant 25 mcg PO DAILY 90 days 90 tabs 0RF Coding Level of Care Code Est Pt Level 4 (88534) Diagnoses Mild major depression F32.0 Right leg pain M79.604 Autoimmune hepatitis K75.4 Uncontrolled type 2 diabetes mellitus with hyperglycemia E11.65 Glycemic state: with hyperglycemia Post-surgical hypothyroidism E89.0 Seronegative rheumatoid arthritis M06.00 Additional Codes HATTIE-7 Assessment Billing - HATTIE-7 Assessment Tool: HATTIE-7 Assessment [id number] ([id number]) Time Spent (min) 26
[2023-06-22 13:51] VITALS: BP 122/80; BMI 29.0
== END 2023-06-22 14:39 | disposition home or self-care (01) ==
PROVIDERS: PCP Internal Medicine; Visit Provider Internal Medicine
DX: E11.65 Type 2 diabetes mellitus with hyperglycemia (principal)
CPT/HCPCS: 83036; 99214

== ENCOUNTER 2023-06-22 15:21 | Outpatient (REF) | payer MEDICARE, MEDICAID, SELFPAY ==
--- NOTE | ~2023-06-22 | US_ITS ---
EXAMINATION: US VENOUS ULTRASOUND WITH DOPPLER LOWER EXTREMITY, RIGHT CLINICAL INFORMATION: Pain COMPARISON: Previous exam February 2023 TECHNIQUE: Ultrasound of the deep veins is performed from the hip to the calf with compression sonography and color and pulse Doppler assessment. Spectral analysis with color-flow imaging is performed. FINDINGS: There is normal venous compression and respiratory variation and augmented flow. The visualized common femoral vein, superficial femoral vein, profunda femoral vein, popliteal vein, and the trifurcation region shows no evidence of deep venous thrombosis. There is a 6.5 x 1.2 x 1.8 cm Yu's cyst extending into the proximal calf. US/US venous duplex LE RT IMPRESSION: No DVT demonstrated in the right lower extremity. 6.5 x 1.2 x 1.8 cm Yu's cyst extending into the proximal calf.
--- NOTE | ~2023-06-22 | XR_ITS ---
EXAMINATION: XR SCAPULA, RIGHT CLINICAL INFORMATION: Other specified disorders of bone, shoulder. COMPARISON: None available. TECHNIQUE: AP and scapular Y views of the right scapula. FINDINGS: Advanced degenerative changes in the acromioclavicular joint with joint space narrowing and hypertrophic change. Degenerative changes on limited views of the upper thoracic spine. Mild degenerative changes with hypertrophic change along the glenoid. XR/XR scapula RT IMPRESSION: 1. Advanced degenerative changes in the acromioclavicular joint. 2. Mild degenerative changes along the glenoid.
== END 2023-06-22 15:22 | disposition home or self-care (01) ==
LOC: HO.US 15:21
PROVIDERS: PCP Internal Medicine; Visit Provider Internal Medicine
DX: M79.604 Pain in right leg (principal); M89.8X1 Other specified disorders of bone, shoulder
CPT/HCPCS: 73010; 93971

== ENCOUNTER 2023-06-28 14:09 | Outpatient (AMB) | payer MEDICARE, MEDICAID, SELFPAY ==
[2023-06-28 14:23] VITALS: BMI 29.0
--- NOTE | 2023-06-28 14:23 | MHC.OFFVIS ---
Intake Vital Signs 06/28/23 14:23 Height 5 ft 7 in Weight 185 lb BMI 29.0 Intake Visit Reasons: Pre-Rt Knee 07/04/23 Intake Note: Cece, 57 year old female presents with complaints of progressively worsening right knee pain and giving way. The patient did undergo left knee arthroscopic surgery on 01/21/2023. She reports mild intermittent discomfort in her left knee. She denies any fevers or chills. She describes her right knee pain as sharp and severe in nature. Most of her right knee pain is along the medial and lateral aspects of her knee. She has done physical therapy which aggravated her pain. She has also tried Tylenol and anti-inflammatory medicines which gave her minimal relief. She has had injections in the past which gave her no relief. She does walk with a cane. She states that her right knee will give out several times per day. Allergies gadobutrol [From GADAVIST] Allergy (Severe, Verified 06/28/23 14:29) ANAPHYLAXIS hydroxychloroquine [Plaquenil] Allergy (Intermediate, Verified 06/28/23 14:29) rash,facial swelling Iodinated Contrast Media [CONTRAST, IV] Allergy (Intermediate, Verified 06/28/23 14:29) DIFF BREATHING levofloxacin [From LEVAQUIN] Allergy (Intermediate, Verified 06/28/23 14:29) ITCHY RASH pregabalin [From LYRICA] Allergy (Intermediate, Verified 06/28/23 14:29) STOMACH UPSET, Swelling tramadol Allergy (Intermediate, Verified 06/28/23 14:29) abdominal pain azathioprine Adverse Reaction (Intermediate, Verified 06/28/23 14:29) Nausea and Vomiting insulin aspart [From Novolog U-100 Insulin aspart] Adverse Reaction (Intermediate, Verified 06/28/23 14:29) chills, shaking, sweating, weakness and tachycardia Statins Support Allergy (Intermediate, Uncoded 06/22/23 13:59) transaminitis MRI contrast (gadolinium) Adverse Reaction (Severe, Uncoded 06/22/23 13:59) anaphylaxis Medication List - Last Reconciled 06/28/23 by Dominick Doyle MD albuterol sulfate 90 mcg/actuation 2 puffs inhalation Q6H PRN 30 days alendronate 70 mg PO QWEEK 90 days [bed rails As directed] bisacodyl 5 mg PO BEDTIME blood sugar diagnostic (FreeStyle Lite Strips) As directed 3 times a day blood-glucose meter (FreeStyle Lite Meter kit) As directed cholecalciferol (vitamin D3) 50 mcg PO DAILY 90 days empagliflozin (Jardiance) 10 mg PO DAILY 90 days empagliflozin (Jardiance) 10 mg PO DAILY ergocalciferol (vitamin D2) 1,250 mcg PO QWEEK 90 days flash glucose scanning reader (IIIMOBIStyle Liza 2 [place]) As directed flash glucose sensor (FreeStyle Liza 2 Sensor kit) As directed -change every 14 days fluconazole 150 mg PO Q3D 2 doses folic acid 1 mg PO DAILY ibuprofen 600 mg PO TID 7 days insulin degludec (Tresiba FlexTouch U-200 insulin) 175 units (0.875 mL) subcut BEDTIME 30 days lancets (FreeStyle Lancets) Use 1 lancet three times a day levothyroxine 200 mcg PO DAILY 90 days levothyroxine 50 mcg PO DAILY 90 days loratadine 10 mg PO DAILY 90 days mercaptopurine 50 mg PO DAILY omeprazole 40 mg (2 x 20 mg) PO DAILY 90 days ondansetron HCl 8 mg PO DAILY PRN 30 days oxycodone 10 mg PO Q8H PRN 30 days peg 3350-electrolytes 236-22.74-6.74 -5.86 gram (Golytely) 240 mL PO Q10M pen needle, diabetic (BD Ultra-Fine Alivia Pen Needle) As directed 4x/day ropinirole 0.25 mg PO BEDTIME 30 days ropinirole 0.25 mg PO DAILY rosuvastatin 10 mg PO DAILY 90 days tiotropium-olodaterol 2.5-2.5 mcg/actuation (Stiolto Respimat) 2 puffs inhalation DAILY 30 days underpads (Bed Underpads) As directed zolpidem 10 mg PO BEDTIME 30 days [facility] Medical History Osteoarthritis of hand, left Chronic constipation Hypoactive bowel sounds Hand numbness Autoimmune thyroiditis Abdominal pain Inflammatory arthritis Breast mass, right Lung cyst Bilateral hand numbness Neck pain Dyslipidemia Post-surgical hypothyroidism Diabetic polyneuropathy associated with type 2 diabetes mellitus senior care (current) use of insulin Chronic idiopathic constipation Low vitamin D level Weight loss GERD (gastroesophageal reflux disease) Diabetes type 2, uncontrolled Fibromyalgia Insomnia Surgical History History of liver biopsy Hx of removal of cyst History of hysterectomy History of thyroidectomy, total History of esophagogastroduodenoscopy (EGD) Hx of colonoscopy (1998) Family History Father Status post liver transplant, biliary anastomotic size mismatch Brother Cardiac arrest Mother No problems noted. Maternal Aunt Breast cancer Brother Essential hypertension Substance abuse Pure hypercholesterolemia Other Mental health problem Social History Household Members: None Housing: House Alcohol intake: never Patient Tobacco Use Status: Former Tobacco user Quit Date: 10+ yrs ago Tobacco use type: Cigarette Cigarettes Per Day: 7 Years Smoked: 6 e-Cigarette/Vaping Use: Never Used Second Hand Smoke Exposure: No Advance Directives Date on File: 07/15/20 service: No Current occupational status: disabled Current occupation: right hand Cognitive needs: No Hearing needs: No Vision needs: No Female Reproductive History Menstrual Age of Menarche: 12 Physical Exam Vital Signs: BMI result Body Mass Index 29.0 Const Other: Well-nourished well-developed very friendly female awake alert and oriented x3 in no acute distress Extrem Other: Bilateral lower extremity examination shows good capillary refill, no skin lesions noted, normal sensation light touch Right knee examination shows a minimal effusion, minimal crepitus with range of motion, tenderness along her medial and lateral joint lines, positive Tino's test, no instability Results Reviewed Results Reviewed: MRI of the patient's right knee shows mild diffuse degenerative changes as well as a tear of her medial meniscus and possible lateral meniscus tearing Assessment & Plan Assessment & Plan (1) Right knee pain: Code(s): M25.561 - Pain in right knee Plan Ms. Conley presents with progressively worsening right knee pain and mechanical symptoms due to early degenerative joint disease as well as a tear of her medial meniscus and possible lateral meniscus tearing. I had a lengthy discussion with the patient regarding the treatment options. At this point she has failed continued non operative treatment. The risks and benefits of right knee arthroscopic surgery were discussed at length with the patient. The patient wishes to proceed with surgery. Surgery will most likely involve right knee diagnostic arthroscopy with partial medial meniscectomy and possible partial lateral meniscectomy. The patient does understand that she may not get 100% relief of her symptoms depending on the severity of her degenerative changes. The patient was given a prescription for Dilaudid at her preoperative appointment. She will follow-up as instructed. Feel free to call me at any time should questions regarding her orthopedic management arise. I spent 22 minutes in reviewing the patient's records and imaging studies, seeing the patient and documenting in the medical record. Medications: New hydromorphone (Dilaudid) Partial Fill upon patient request. Take 1/2 to 1 tab every 6 hours as needed for pain following a right knee surgery. The patient will take the Dilaudid instead of her oxycodone following her right knee surgery. 4 mg PO Q6H PRN 20 tabs 0RF pain Coding Level of Care Code Est Pt Level 2 (57696) Diagnoses Right knee pain M25.561
== END 2023-06-28 14:52 | disposition home or self-care (01) ==
PROVIDERS: PCP Internal Medicine; Visit Provider Orthopaedic Surgery
DX: M25.561 Pain in right knee (principal)
CPT/HCPCS: 99214

== ENCOUNTER → 2023-06-28 14:09 | Outpatient (BNVA) | payer MEDICARE, MEDICAID, SELFPAY | PROVIDERS: PCP Internal Medicine; Visit Provider Orthopaedic Surgery | DX: M25.561 Pain in right knee (principal) | CPT/HCPCS: 99212 ==

== ENCOUNTER 2023-07-08 07:20 | Day surgery (SDC) | payer MEDICARE, MEDICAID, SELFPAY ==
[2023-07-05 09:41] VITALS: BMI 29.0
--- NOTE | 2023-07-06 11:51 | HO.ANESPROP2 ---
Documented by User: Brittany Chang NP 07/06/23 11:52 HPI - Anesthesia Eval Consult details Narrative: 58yo F for Right Knee Arthroscopy s/p same 12/2022 with GA-LMA 4 PMFSH Active Problems Active Problems: All Active Problems Primary osteoarthritis, right shoulder (Acute) Pain of right scapula (Acute) Right leg pain (Acute) Urge urinary incontinence (Acute) Right knee pain (Acute) Right calf pain (Acute) Mild major depression (Acute) Physical exam (Acute) Lumbar degenerative disc disease (Acute) Osteoarthritis of left knee (Acute) H/O arthroscopy of left knee (Acute) Sprain of right knee (Acute) Dilated bile duct (Acute) Osteopenia (Acute) Left knee pain (Acute) Chest pain (Acute) Tear of medial meniscus of left knee (Acute) Left knee sprain (Acute) H. pylori infection (Acute) Hyperlipidemia LDL goal <70 (Acute) Oral thrush (Acute) Long-term current use of steroids (Acute) Autoimmune thyroiditis (Acute) Autoimmune hepatitis (Acute) Generalized pain (Acute) Elevated liver enzymes (Acute) Dysphagia (Acute) Palpitations (Acute) Goiter (Acute) Abdominal pain (Acute) Abscess (Acute) Yeast infection involving the vagina and surrounding area (Acute) Vaginal irritation (Acute) Low back pain (Acute) Encounter for screening colonoscopy (Acute) Seronegative rheumatoid arthritis (Acute) Dyspnea on exertion (Acute) Pulmonary emphysema (Acute) Left wrist pain (Acute) Left hand pain (Acute) Rotator cuff tendonitis (Acute) De Quervain's disease (radial styloid tenosynovitis) (Acute) Osteoarthritis of hand, left (Acute) Chronic constipation (Acute) Hypoactive bowel sounds (Acute) Hand numbness (Acute) Autoimmune thyroiditis (Acute) Abdominal pain (Acute) Inflammatory arthritis (Acute) Breast mass, right (Acute) Lung cyst (Acute) Bilateral hand numbness (Acute) Neck pain (Acute) Dyslipidemia (Acute) Post-surgical hypothyroidism (Acute) Diabetic polyneuropathy associated with type 2 diabetes mellitus (Acute) longterm (current) use of insulin (Acute) Chronic idiopathic constipation (Acute) Low vitamin D level (Acute) Weight loss (Acute) GERD (gastroesophageal reflux disease) (Acute) Diabetes type 2, uncontrolled (Acute) Fibromyalgia (Acute) Insomnia (Acute) Past Medical History Medical History Osteoarthritis of hand, left Chronic constipation Hypoactive bowel sounds Hand numbness Autoimmune thyroiditis Abdominal pain Inflammatory arthritis Breast mass, right Lung cyst Bilateral hand numbness Neck pain Dyslipidemia Post-surgical hypothyroidism Diabetic polyneuropathy associated with type 2 diabetes mellitus longterm (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 Maternal Aunt Breast cancer Brother Essential hypertension Substance abuse Pure hypercholesterolemia Other Mental health problem Family history of problems with anesthesia: No Surgical History Surgical History Hx of arthroscopy of left knee History of liver biopsy Hx of removal of cyst History of hysterectomy History of thyroidectomy, total History of esophagogastroduodenoscopy (EGD) Hx of colonoscopy (1998) History of Problems with Anesthesia: No Social History Social History Household Members: None Housing: House Alcohol intake: never Patient Tobacco Use Status: Former Tobacco user Quit Date: 10+ yrs ago Tobacco use type: Cigarette Cigarettes Per Day: 7 Years Smoked: 6 e-Cigarette/Vaping Use: Never Used Second Hand Smoke Exposure: No Advance Directives: No Advance Directives Information Provided: Yes Advance Directives Date on File: 07/15/20 service: No Current occupational status: disabled Current occupation: right hand Cognitive needs: No Hearing needs: No Vision needs: No Meds Allergies Allergy/AdvReac Type Severity Reaction Status Date / Time gadobutrol [From GADAVIST] Allergy Severe ANAPHYLAXIS Verified 06/28/23 14:29 hydroxychloroquine Allergy Intermediate rash,facial Verified 06/28/23 14:29 [Plaquenil] swelling levofloxacin [From LEVAQUIN] Allergy Intermediate ITCHY RASH Verified 06/28/23 14:29 pregabalin [From LYRICA] Allergy Intermediate STOMACH Verified 06/28/23 14:29 UPSET, Swelling tramadol Allergy Intermediate abdominal Verified 06/28/23 14:29 pain azathioprine AdvReac Intermediate Nausea and Verified 06/28/23 14:29 Vomiting insulin aspart AdvReac Intermediate chills, Verified 06/28/23 14:29 [From Novolog U-100 Insulin shaking, aspart] sweating, weakness and tachycardia Gqycwhk-FCN-YeO Reductase AdvReac Intermediate transamimit Verified 07/05/23 09:20 Inhibitor is Active Medications: Current Medications Cefazolin Sodium/Dextrose (Ancef) 2 gm in 50 mls @ 100 mls/hr IV PREOP ONE Stop: 07/08/23 05:47 Home Medications ?Medication ?Instructions ?Recorded ?Confirmed ?Last Taken ?Type bisacodyl 5 mg tablet,delayed 5 mg PO BEDTIME 03/04/22 06/28/23 Unknown History release ropinirole 0.25 mg tablet 0.25 mg PO DAILY 03/14/23 07/05/23 Unknown History Exam Height,Weight and Vital Signs: Height 5 ft 7 in Weight 83.915 kg Pertinent Lab Results Pertinent Lab Results: Laboratory Tests 02/16/23 06/18/23 08:13 07:25 WBC 3.6 L Hgb 12.7 Hct 37.5 Plt Count 230 Sodium 136 Potassium 4.0 Chloride 102 Carbon Dioxide 27 BUN 17 H Creatinine 0.81 Assessment and Plan Assessment Anesthesia Assessment: Chart Reviewed Final Anesthetic Review Family History of Problems with Anesthesia: No History of Problems with Anesthesia: No Documented by User: Alexandra Wilde MD 07/08/23 07:56 [facility] Past Medical History Medical History Osteoarthritis of hand, left Chronic constipation Hypoactive bowel sounds Hand numbness Autoimmune thyroiditis Abdominal pain Inflammatory arthritis Breast mass, right Lung cyst Bilateral hand numbness Neck pain Dyslipidemia Post-surgical hypothyroidism Diabetic polyneuropathy associated with type 2 diabetes mellitus longterm (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 Maternal Aunt Breast cancer Brother Essential hypertension Substance abuse Pure hypercholesterolemia Other Mental health problem Surgical History Surgical History Hx of arthroscopy of left knee History of liver biopsy Hx of removal of cyst History of hysterectomy History of thyroidectomy, total History of esophagogastroduodenoscopy (EGD) Hx of colonoscopy (1998) Social History Social History Household Members: None Housing: House Alcohol intake: never Patient Tobacco Use Status: Former Tobacco user Quit Date: 10+ yrs ago Tobacco use type: Cigarette Cigarettes Per Day: 7 Years Smoked: 6 e-Cigarette/Vaping Use: Never Used Second Hand Smoke Exposure: No Advance Directives: No Advance Directives Information Provided: Yes Advance Directives Date on File: 07/15/20 service: No Current occupational status: disabled Current occupation: right hand Cognitive needs: No Hearing needs: No Vision needs: No Meds Allergies Allergy/AdvReac Type Severity Reaction Status Date / Time gadobutrol [From GADAVIST] Allergy Severe ANAPHYLAXIS Verified 06/28/23 14:29 hydroxychloroquine Allergy Intermediate rash,facial Verified 06/28/23 14:29 [Plaquenil] swelling levofloxacin [From LEVAQUIN] Allergy Intermediate ITCHY RASH Verified 06/28/23 14:29 pregabalin [From LYRICA] Allergy Intermediate STOMACH Verified 06/28/23 14:29 UPSET, Swelling tramadol Allergy Intermediate abdominal Verified 06/28/23 14:29 pain azathioprine AdvReac Intermediate Nausea and Verified 06/28/23 14:29 Vomiting insulin aspart AdvReac Intermediate chills, Verified 06/28/23 14:29 [From Novolog U-100 Insulin shaking, aspart] sweating, weakness and tachycardia Iobfzok-PTG-BuG Reductase AdvReac Intermediate transamimit Verified 07/05/23 09:20 Inhibitor is Home Medications ?Medication ?Instructions ?Recorded ?Confirmed ?Last Taken ?Type bisacodyl 5 mg tablet,delayed 5 mg PO BEDTIME 03/04/22 06/28/23 Unknown History release ropinirole 0.25 mg tablet 0.25 mg PO DAILY 03/14/23 07/05/23 Unknown History Exam Airway Mallampati Class: II TM Dist: >3cm Neck ROM: Full Heart: rrr Lungs: cta Assessment and Plan Assessment Anesthesia Assessment: Anesthesia Plan Discussed Final Anesthetic Review NPO: Yes ASA Class: III Final Preanesthetic Review: No Changes in Pt Med Stat, Meds/Allgs Chart Reviewed, Consent Obtained/Reviewed and Anes Risks/Benef Reviewed Patient Risk: Intermediate Procedure Risk: Low Anesthetic Plan Anesthetic Plan: GA Disposition: Standard PACU
[2023-07-08] VITALS (10 sets, daily range): BP systolic 138–149; BP diastolic 64–80; PULSE 50–69; RESP 16–18; TEMP 36.4–36.6; O2SAT 96–99; BMI 30.1
[2023-07-08 08:11] LABS: Glucose, Whole Blood 125 mg/dL (60-115)
[2023-07-08] MEDS: Lactated Ringers 1,000 ML 100 ML IVCONT (08:22)
--- NOTE | 2023-07-08 10:05 | P.BOP_ITS ---
Brief Operative Note Date of Service: 07/08/23 Pre-op diagnosis: Right knee medial meniscus tear, right knee degenerative joint disease Post-op diagnosis: same Procedure: Right knee arthroscopic partial medial meniscectomy, right knee arthroscopic chondroplasty of the undersurface of the patella as well as the medial femoral condyle Implants: None Surgeon: Dominick Doyle MD Anesthesia: GLMA Was an Visitor Services Specialist used for this Procedure?: No Estimated blood loss (mL): 10 Pathology: none sent Condition: stable Disposition: PACU
--- NOTE | 2023-07-08 10:06 | W.PM.OPN ---
Operative Note Operative Note Date of Service: 07/08/23 Narrative: After the patient was identified as Cece Conley and her right knee was initialed by myself they were brought to the operating room where general anesthesia was induced by the anesthesiologist in routine fashion. The patient was given 2 g of IV Ancef for infection prophylaxis. A formal time-out was completed. The patient's right lower extremity was prepped and draped in sterile fashion. Marcaine with epinephrine was injected into the planned incision sites as well as their right knee joint. A # 11 scalpel blade was used to make an anterolateral portal 1 cm proximal to the joint line and 1 cm lateral to the patellar tendon. Blunt trocar technique was used into the suprapatellar pouch with the knee in extension. Diagnostic arthroscopy showed multiple bands of thickened plica which would be excised at the end of the procedure. There were no loose bodies or abnormalities found in either the medial or lateral gutters. There were diffuse grade 2 degenerative changes of the undersurface of the patella as well as grades 1 and 2 degenerative changes of the trochlear groove. The patient's knee was flexed to 45 degrees and a valgus force was placed upon it. The medial compartment was entered. An anteromedial portal was made 1 cm proximal to the joint line and 1 cm medial to the patellar tendon. Probing of the medial meniscus showed a radial tear of the posterior horn. A partial medial meniscectomy was performed using the arthroscopic shaver. Following the partial meniscectomy the remainder of the meniscus tissue was stable. There were diffuse grades 2 and 3 degenerative changes of the medial femoral condyle as well as diffuse grades 1 and 2 degenerative changes of the medial tibial plateau. The articular surface of the medial femoral condyle was made smooth using the arthroscopic shaver. The articular surface of the medial tibial plateau was already smooth so no chondroplasty was indicated. The patient's knee was then placed into a neutral position. There was no injury to the anterior cruciate ligament. The patient's knee was then placed into the figure of 4 position and the lateral compartment was entered. There were minimal degenerative changes of the lateral femoral condyle and lateral tibial plateau. There was no evidence of lateral meniscus tearing. The patient's knee was once again brought into extension and the suprapatellar pouch was entered. The arthroscopic shaver and the ArthroCare Wand were used to excise the thickened bands of plica. The undersurface of the patella was then made smooth using the arthroscopic shaver. The articular surface of the trochlear groove was already smooth so no chondroplasty was indicated. The knee joint was irrigated and then drained. All arthroscopic instruments were removed. The 2 portals were closed with 3-0 nylon interrupted suture. The knee joint was injected with Marcaine. Dry sterile dressing and Servando bandages were placed over the patient's knee. The patient was awoken and extubated in the operating room. They were transferred to the recovery room in stable condition.
[2023-07-08] MEDS: fentaNYL citrate/PF 100 MCG/2 ML VIAL 25 MCG IVPUSH ×2 (10:11→10:17)
[2023-07-08] MEDS: cefTRIAXone sodium 1 GM in 0.9 % Sodium Chloride 50 ML IV (10:25)
== END 2023-07-08 11:20 | disposition home or self-care (01) ==
PROVIDERS: PCP Internal Medicine; Visit Provider Orthopaedic Surgery
PROC: (CPT 29870; principal; 2023-07-08 09:00)
DX: S83.241A Other tear of medial meniscus, current injury, right knee, initial encounter (principal); M17.11 Unilateral primary osteoarthritis, right knee; M23.51 Chronic instability of knee, right knee; M67.51 Plica syndrome, right knee; M79.7 Fibromyalgia; E06.3 Autoimmune thyroiditis; E78.5 Hyperlipidemia, unspecified; E11.42 Type 2 diabetes mellitus with diabetic polyneuropathy; Z79.4 Long term (current) use of insulin; Z79.84 Long term (current) use of oral hypoglycemic drugs; Z79.1 Long term (current) use of non-steroidal anti-inflammatories (NSAID); Z79.899 Other long term (current) drug therapy; Z99.89 Dependence on other enabling machines and devices; Z88.1 Allergy status to other antibiotic agents; Z88.8 Allergy status to other drugs, medicaments and biological substances; Z91.040 Latex allergy status; Z91.041 Radiographic dye allergy status; Z79.890 Hormone replacement therapy; X58.XXXA Exposure to other specified factors, initial encounter; Y93.9 Activity, unspecified; Y92.9 Unspecified place or not applicable; Y99.9 Unspecified external cause status
CPT/HCPCS: 29881; 82947; J0131; J0171; J0690; J0696; J1100; J1170; J1885; J2250; J2405; J2704; J2795; J3010

== ENCOUNTER → 2023-07-08 07:20 | Outpatient (BNV) | payer MEDICARE, MEDICAID, SELFPAY | PROVIDERS: PCP Internal Medicine; Visit Provider Orthopaedic Surgery | DX: S83.241A Other tear of medial meniscus, current injury, right knee, initial encounter (principal) | CPT/HCPCS: 29881 ==

== ENCOUNTER 2023-07-20 13:17 | Outpatient (AMB) | payer MEDICARE, MEDICAID, SELFPAY ==
--- NOTE | 2023-07-20 13:22 | A.OFFVIS_ITS ---
Intake Visit Reasons: PO-Rt Knee 07/04/23 DR Intake Note: Cece a 58 year old female who presents today for post operative right knee on 07/04/23 Patient reports she is doing well, states discomfort in her knee that feels like her kneecap is shifting towards the medial aspect of her knee. Allergies gadobutrol [From GADAVIST] Allergy (Severe, Verified 07/20/23 13:26) ANAPHYLAXIS hydroxychloroquine [Plaquenil] Allergy (Intermediate, Verified 07/20/23 13:26) rash,facial swelling levofloxacin [From LEVAQUIN] Allergy (Intermediate, Verified 07/20/23 13:26) ITCHY RASH pregabalin [From LYRICA] Allergy (Intermediate, Verified 07/20/23 13:26) STOMACH UPSET, Swelling tramadol Allergy (Intermediate, Verified 07/20/23 13:26) abdominal pain azathioprine Adverse Reaction (Intermediate, Verified 07/20/23 13:26) Nausea and Vomiting insulin aspart [From Novolog U-100 Insulin aspart] Adverse Reaction (Intermediate, Verified 07/20/23 13:26) chills, shaking, sweating, weakness and tachycardia Pvcnrcd-FIM-YaB Reductase Inhibitor Adverse Reaction (Intermediate, Verified 07/20/23 13:26) transamimitis HPI HPI PO-Rt Knee 07/04/23 DR: Details: 58-year-old female who returns to the office today for post-op right knee , 07/04/[address] Doyle. She continues to have some discomfort in her knee where she feels her kneecap is shifting towards the medial aspect of her knee. Her pain is aggravated with stair use. She is working on exercises at home. She is doing well otherwise and has no other concerns today. [facility] Medical History Osteoarthritis of hand, left Chronic constipation Hypoactive bowel sounds Hand numbness Autoimmune thyroiditis Abdominal pain Inflammatory arthritis Breast mass, right Lung cyst Bilateral hand numbness Neck pain Dyslipidemia Post-surgical hypothyroidism Diabetic polyneuropathy associated with type 2 diabetes mellitus halfway (current) use of insulin Chronic idiopathic constipation Low vitamin D level Weight loss GERD (gastroesophageal reflux disease) Diabetes type 2, uncontrolled Fibromyalgia Insomnia Surgical History Hx of arthroscopy of left knee History of liver biopsy Hx of removal of cyst History of hysterectomy History of thyroidectomy, total History of esophagogastroduodenoscopy (EGD) Hx of colonoscopy (1998) Family History Father Status post liver transplant, biliary anastomotic size mismatch Brother Cardiac arrest Mother No problems noted. Maternal Aunt Breast cancer Brother Essential hypertension Substance abuse Pure hypercholesterolemia Other Mental health problem Social History Household Members: None Housing: House Alcohol intake: never Patient Tobacco Use Status: Former Tobacco user Quit Date: 20 years Tobacco use type: Cigarette Cigarettes Per Day: 7 Years Smoked: 6 e-Cigarette/Vaping Use: Never Used Second Hand Smoke Exposure: No Advance Directives Date on File: 07/15/20 service: No Current occupational status: disabled Current occupation: right hand Cognitive needs: No Hearing needs: No Vision needs: No Female Reproductive History Menstrual Age of Menarche: 12 Review of Systems Const All systems reviewed & are unremarkable except as noted in HPI and below Physical Exam Extrem Other: Right knee: Incision clean, dry and intact. No erythema or drainage. Sutures are intact. ROM is 10-90 degrees. Calf supple, nontender. NVI. Results Reviewed Results Reviewed: Brief Operative Note Date of Service: 07/08/23 Pre-op diagnosis: Right knee medial meniscus tear, right knee degenerative joint disease Post-op diagnosis: same Procedure: Right knee arthroscopic partial medial meniscectomy, right knee arthroscopic chondroplasty of the undersurface of the patella as well as the medial femoral condyle Implants: None Surgeon: Dominick Doyle MD Assessment & Plan Assessment & Plan (1) Right knee pain: Code(s): M25.561 - Pain in right knee Category: Medical Plan Sutures removed today, steri strips applied. I encouraged her to work on physical therapy to improve her motion which she was hesitant with and declined. She states she will work on her own at home. I did show her some flexion and extension exercise today to improve her motion. I recommend using caution with deep bending, twisting, or climbing activities. She will see me back in [address] Doyle, sooner if needed. Patient Instructions: Scribed for Ta-Yaz Meuse, PA-C, by [employer] medical appliance maker, on 07/20/2023 at 1:30 PM JOVITA. Sharon Hinson PA-C, have personally reviewed and agree with the information entered by the scribe. Coding Level of Care Code Global (78018) Diagnoses Right knee pain M25.561
== END 2023-07-20 13:56 | disposition home or self-care (01) ==
PROVIDERS: PCP Internal Medicine; Visit Provider Physician Assistant
DX: M25.561 Pain in right knee (principal)
CPT/HCPCS: 99024

== ENCOUNTER → 2023-07-20 13:17 | Outpatient (BNVA) | payer MEDICARE, MEDICAID, SELFPAY | PROVIDERS: PCP Internal Medicine; Visit Provider Physician Assistant | DX: Z47.89 Encounter for other orthopedic aftercare (principal); Z48.1 Encounter for planned postprocedural wound closure; M25.561 Pain in right knee | CPT/HCPCS: 99212 ==

== ENCOUNTER 2023-08-18 13:19 | Outpatient (AMB) | payer MEDICARE, MEDICAID, SELFPAY ==
--- NOTE | 2023-08-18 13:21 | A.OFFVIS_ITS ---
Intake Visit Reasons: PO-4wk f/u Rt Knee 07/04/23 DR-book with Dr Doyle Intake Note: Cece is a 58 year old female who presents for her post operative appointment s/p her right knee on 07/04/23 The patient reports continued mild to moderate discomfort in her right knee. She denies any fevers or chills. She has tried ibuprofen which gives only mild relief. The patient also underwent left knee arthroscopic surgery on 01/21/2023. She denies any her left knee. Allergies gadobutrol [From GADAVIST] Allergy (Severe, Verified 08/18/23 13:26) ANAPHYLAXIS hydroxychloroquine [Plaquenil] Allergy (Intermediate, Verified 08/18/23 13:26) rash,facial swelling levofloxacin [From LEVAQUIN] Allergy (Intermediate, Verified 08/18/23 13:26) ITCHY RASH pregabalin [From LYRICA] Allergy (Intermediate, Verified 08/18/23 13:26) STOMACH UPSET, Swelling tramadol Allergy (Intermediate, Verified 08/18/23 13:26) abdominal pain azathioprine Adverse Reaction (Intermediate, Verified 08/18/23 13:26) Nausea and Vomiting insulin aspart [From Novolog U-100 Insulin aspart] Adverse Reaction (Intermediate, Verified 08/18/23 13:26) chills, shaking, sweating, weakness and tachycardia Uhykwdl-EMQ-VqM Reductase Inhibitor Adverse Reaction (Intermediate, Verified 08/18/23 13:26) transamimitis Medication List - Last Reconciled 08/18/23 by Dominick Doyle MD albuterol sulfate 90 mcg/actuation 2 puffs inhalation Q6H PRN 30 days alendronate 70 mg PO QWEEK 90 days [bed rails As directed] bisacodyl 5 mg PO BEDTIME blood sugar diagnostic (FreeStyle Lite Strips) As directed 3 times a day blood-glucose meter (FreeStyle Lite Meter kit) As directed cholecalciferol (vitamin D3) 50 mcg PO DAILY 90 days ergocalciferol (vitamin D2) 1,250 mcg PO QWEEK 90 days flash glucose scanning reader (FreeStyle Liza 2 [place]) As directed flash glucose sensor (FreeStyle Liza 2 Sensor kit) As directed -change every 14 days fluconazole 150 mg PO Q3D 2 doses folic acid 1 mg PO DAILY hydromorphone (Dilaudid) 4 mg PO Q6H PRN ibuprofen 600 mg PO TID 7 days insulin degludec (Tresiba FlexTouch U-200 insulin) 175 units (0.875 mL) subcut BEDTIME 30 days lancets (FreeStyle Lancets) Use 1 lancet three times a day levothyroxine 200 mcg PO DAILY 90 days levothyroxine 50 mcg PO DAILY 90 days loratadine 10 mg PO DAILY 90 days mercaptopurine 50 mg PO DAILY omeprazole 40 mg (2 x 20 mg) PO DAILY 90 days ondansetron HCl 8 mg PO DAILY PRN 30 days oxycodone 10 mg PO Q8H PRN 30 days peg 3350-electrolytes 236-22.74-6.74 -5.86 gram (Golytely) 240 mL PO Q10M pen needle, diabetic (BD Ultra-Fine Alivia Pen Needle) As directed 4x/day ropinirole 0.25 mg PO BEDTIME 30 days ropinirole 0.25 mg PO DAILY rosuvastatin 10 mg PO DAILY 90 days tiotropium-olodaterol 2.5-2.5 mcg/actuation (Stiolto Respimat) 2 puffs inhalation DAILY 30 days underpads (Bed Underpads) As directed zolpidem 10 mg PO BEDTIME 30 days PFSH Medical History Osteoarthritis of hand, left Chronic constipation Hypoactive bowel sounds Hand numbness Autoimmune thyroiditis Abdominal pain Inflammatory arthritis Breast mass, right Lung cyst Bilateral hand numbness Neck pain Dyslipidemia Post-surgical hypothyroidism Diabetic polyneuropathy associated with type 2 diabetes mellitus 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 Maternal Aunt Breast cancer Brother Essential hypertension Substance abuse Pure hypercholesterolemia Other Mental health problem Social History Household Members: None Housing: House Alcohol intake: never Patient Tobacco Use Status: Former Tobacco user Quit Date: 20 years Tobacco use type: Cigarette Cigarettes Per Day: 7 Years Smoked: 6 e-Cigarette/Vaping Use: Never Used Second Hand Smoke Exposure: No Advance Directives Date on File: 07/15/20 service: No Current occupational status: disabled Current occupation: right hand Cognitive needs: No Hearing needs: No Vision needs: No Female Reproductive History Menstrual Age of Menarche: 12 Physical Exam Extrem Other: Right knee examination shows that the surgical incisions are well healed, no erythema, mild discomfort with range of motion, mild crepitus with range of motion, her patella tracks well, no instability Assessment & Plan Assessment & Plan (1) Right knee pain: Code(s): M25.561 - Pain in right knee Category: Medical Plan Ms. Conley is doing fairly well after undergoing right knee arthroscopic surgery on 07/08/2023. She does have residual discomfort due to degenerative joint disease. I discussed with the patient the fact that her symptoms should continue to improve over the next few months. Activity modifications were discussed at length with the patient. I did give her a prescription for meloxicam which she will try instead of the ibuprofen. She will contact me prior to her follow-up appointment in 2 months should any questions or concerns arise. Feel free to call me at any time should questions regarding her orthopedic management arise. Medications: New meloxicam 15 mg PO DAILY PRN 30 tabs 3RF pain Coding Level of Care Code Global (60881) Diagnoses Right knee pain M25.561
== END 2023-08-18 13:40 | disposition home or self-care (01) ==
PROVIDERS: PCP Internal Medicine; Visit Provider Orthopaedic Surgery
DX: M25.561 Pain in right knee (principal)
CPT/HCPCS: 99024

== ENCOUNTER → 2023-08-18 13:19 | Outpatient (BNVA) | payer MEDICARE, MEDICAID, SELFPAY | PROVIDERS: PCP Internal Medicine; Visit Provider Orthopaedic Surgery | DX: Z47.89 Encounter for other orthopedic aftercare (principal); M25.561 Pain in right knee | CPT/HCPCS: 99212 ==

== ENCOUNTER 2023-09-23 14:10 | Outpatient (AMB) | payer MEDICARE, MEDICAID, SELFPAY ==
--- NOTE | 2023-09-23 14:09 | MHC.OFFVIS ---
Vital Signs 09/23/23 14:12 Height 5 ft 7 in Weight 182 lb 15.739 oz BMI 28.7 BP 108/60 Blood Pressure Location Rt brachial Position Sitting Pulse 80 Pulse Oximetry (%) 98 Oxygen Delivery Method Room Air Intake Visit Reasons: RA/cm Intake Note: Pt last seen by Brie Trinh on 05/25/22 presents today for follow up. Reports she is very overwhelmed and depressed due to the pain she is experiencing. She states because of the depression she had stopped taking all her medications. 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: No Accompanied by: Self / Same As Patient Allergies gadobutrol [From GADAVIST] Allergy (Severe, Verified 09/23/23 14:23) ANAPHYLAXIS hydroxychloroquine [Plaquenil] Allergy (Intermediate, Verified 09/23/23 14:23) rash,facial swelling levofloxacin [From LEVAQUIN] Allergy (Intermediate, Verified 09/23/23 14:23) ITCHY RASH pregabalin [From LYRICA] Allergy (Intermediate, Verified 09/23/23 14:23) STOMACH UPSET, Swelling tramadol Allergy (Intermediate, Verified 09/23/23 14:23) abdominal pain azathioprine Adverse Reaction (Intermediate, Verified 09/23/23 14:23) Nausea and Vomiting insulin aspart [From Novolog U-100 Insulin aspart] Adverse Reaction (Intermediate, Verified 09/23/23 14:23) chills, shaking, sweating, weakness and tachycardia Kenjllj-OHO-JnU Reductase Inhibitor Adverse Reaction (Intermediate, Verified 09/23/23 14:23) transamimitis Medication List - Last Reconciled 09/23/23 by Ty Almanzar MD albuterol sulfate 90 mcg/actuation 2 puffs inhalation Q6H PRN 30 days alendronate 70 mg PO QWEEK 90 days [bed rails As directed] bisacodyl 5 mg PO BEDTIME blood sugar diagnostic (FreeStyle Lite Strips) As directed 3 times a day blood-glucose meter (FreeStyle Lite Meter kit) As directed cholecalciferol (vitamin D3) 50 mcg PO DAILY 90 days ergocalciferol (vitamin D2) 1,250 mcg PO QWEEK 90 days flash glucose scanning reader (FreeStyle Liza 2 [place]) As directed flash glucose sensor (FreeStyle Liza 2 Sensor kit) As directed -change every 14 days fluconazole 150 mg PO Q3D 2 doses folic acid 1 mg PO DAILY hydromorphone (Dilaudid) 4 mg PO Q6H PRN ibuprofen 600 mg PO TID 7 days insulin degludec (Tresiba FlexTouch U-200 insulin) 175 units (0.875 mL) subcut BEDTIME 30 days lancets (FreeStyle Lancets) Use 1 lancet three times a day levothyroxine 200 mcg PO DAILY 90 days levothyroxine 50 mcg PO DAILY 90 days loratadine 10 mg PO DAILY 90 days meloxicam 15 mg PO DAILY PRN mercaptopurine 50 mg PO DAILY omeprazole 40 mg (2 x 20 mg) PO DAILY 90 days ondansetron HCl 8 mg PO DAILY PRN 30 days oxycodone 10 mg PO Q8H PRN 30 days peg 3350-electrolytes 236-22.74-6.74 -5.86 gram (Golytely) 240 mL PO Q10M pen needle, diabetic (BD Ultra-Fine Alivia Pen Needle) As directed 4x/day ropinirole 0.25 mg PO BEDTIME 30 days ropinirole 0.25 mg PO DAILY rosuvastatin 10 mg PO DAILY 90 days tiotropium-olodaterol 2.5-2.5 mcg/actuation (Stiolto Respimat) 2 puffs inhalation DAILY 30 days underpads (Bed Underpads) As directed zolpidem 10 mg PO BEDTIME 30 days HPI Comments Details: This is a 58-year-old female with seronegative RA who presents for follow-up. She was last seen by Manjula Trinh 04/2022. Patient was initially diagnosed with seronegative RA. She was started on methotrexate, she was found to have elevated liver enzymes, labs showed a positive anti-smooth muscle antibody and she was diagnosed with autoimmune hepatitis. At that time she was switched to azathioprine. She could not tolerate azathioprine and she was switched to mercaptopurine. She took them mercaptopurine regularly until about 3-4 months ago she stopped it due to depression. She stopped all her meds at that time. Even her diabetes medications. She stated that her joints did not feel much better while she was taking mercaptopurine. She had left knee arthroscopic meniscal refill followed by a right knee arthroscopic meniscal repair a few weeks ago. She stated that she continued to have knee pain before and after the surgery. She also has pain swelling and stiffness of her hands. Morning stiffness lasting 30 minutes. Gets intermittent pain and swelling of her ankles as well. [facility] Medical History Osteoarthritis of hand, left Chronic constipation Hypoactive bowel sounds Hand numbness Autoimmune thyroiditis Abdominal pain Inflammatory arthritis Breast mass, right Lung cyst Bilateral hand numbness Neck pain Dyslipidemia Post-surgical hypothyroidism Diabetic polyneuropathy associated with type 2 diabetes mellitus skilled nursing (current) use of insulin Chronic idiopathic constipation Low vitamin D level Weight loss GERD (gastroesophageal reflux disease) Diabetes type 2, uncontrolled Fibromyalgia Insomnia Surgical History Hx of arthroscopy of left knee History of liver biopsy Hx of removal of cyst History of hysterectomy History of thyroidectomy, total History of esophagogastroduodenoscopy (EGD) Hx of colonoscopy (1998) Family History Father Status post liver transplant, biliary anastomotic size mismatch Brother Cardiac arrest Mother No problems noted. Maternal Aunt Breast cancer Brother Essential hypertension Substance abuse Pure hypercholesterolemia Other Mental health problem Social History Household Members: None Housing: House Alcohol intake: never Patient Tobacco Use Status: Former Tobacco user Tobacco use type: Cigarette Cigarettes Per Day: 7 Years Smoked: 6 e-Cigarette/Vaping Use: Never Used Second Hand Smoke Exposure: No Advance Directives Date on File: 07/15/20 service: No Current occupational status: disabled Current occupation: right hand Cognitive needs: No Hearing needs: No Vision needs: No Female Reproductive History Menstrual Age of Menarche: 12 Review of Systems [facility] Reports arthralgias, Reports joint swelling and Reports stiffness Physical Exam Vital Signs: Last Vital Signs Pulse 80 09/23/23 14:12 BP 108/60 09/23/23 14:12 Pulse Ox 98 09/23/23 14:12 Oxygen Delivery Method Room Air 09/23/23 14:12 BMI result Body Mass Index 28.7 Const General: cooperative, healthy appearing and comfortable Nutritional Appearance: overweight Orientation/consciousness: patient oriented x3 Limitations: ambulation with cane HEENT Head: Yes normocephalic and Yes atraumatic Resp Effort & Inspection: normal respiratory effort and able to speak in complete sentences Auscultation: clear to auscultation bilaterally Skin General skin exam: no rashes or lesions noted Neuro General: patient oriented x3 Extrem Other: Mild puffiness of her MCPs. Bilateral wrist pain with full flexion-extension diffusely tender flexor tendons both hands Limited range of motion of right shoulder Bilateral knee swelling, minimal warmth Right knee is held in a semi-flexed position. Pain with any range of motion. Bilateral ankle swelling without tenderness Negative MTP squeeze test bilaterally Normal nailfold capillaroscopy Assessment & Plan Assessment & Plan (1) Seronegative rheumatoid arthritis: Comment: Methotrexate 11/2020-July 2021. Code(s): M06.00 - Rheumatoid arthritis without rheumatoid factor, unspecified site Category: Medical Plan: This is a 58-year-old female with seronegative RA who presents for follow-up. She also has autoimmune hepatitis. Patient took mercaptopurine regularly for approximately 2 years until she stopped it 3-4 months ago. She restarted it up about a week ago when she saw a liver specialist in [facility]. She stated that she has been having diffuse joint pain for the last 2-3 years. She states that her joints did not feel better while she was mercaptopurine. On exam she has multiple swollen and tender joints. Check labs to evaluate disease activity. Check x-rays of involved joints. Advised patient to be compliant with mercaptopurine. If no improvement, can consider additional DMARD. Follow-up in 6 weeks Plan I spent 30 minutes reviewing patient's chart, evaluating patient, ordering diagnostic workup, counseling patient and documenting in the chart Orders: Orders Complete Blood Count Auto Diff Today M06.00 - Rheumatoid arthritis without rheumatoid factor, unspecified site Erythrocyte Sedimentation Rate Today M06.00 - Rheumatoid arthritis without rheumatoid factor, unspecified site Hepatitis A,B,C Profile Today Z11.59 - Encounter for screening for other viral diseases Rheumatoid Factor Today M06.00 - Rheumatoid arthritis without rheumatoid factor, unspecified site XR foot LT min 3V Today M06.00 - Rheumatoid arthritis without rheumatoid factor, unspecified site Cyclic Citrullinated Peptide Today M06.00 - Rheumatoid arthritis without rheumatoid factor, unspecified site Comprehensive Met. Panel Today M06.00 - Rheumatoid arthritis without rheumatoid factor, unspecified site C Reactive Protein Today M06.00 - Rheumatoid arthritis without rheumatoid factor, unspecified site T Spot TB Today Z11.7 - Encounter for testing for latent tuberculosis infection XR hand wrist LT Today M06.00 - Rheumatoid arthritis without rheumatoid factor, unspecified site XR hand wrist RT Today M06.00 - Rheumatoid arthritis without rheumatoid factor, unspecified site XR foot RT min 3V Today M06.00 - Rheumatoid arthritis without rheumatoid factor, unspecified site Coding Level of Care Code Est Pt Level 4 (89024) Diagnoses Seronegative rheumatoid arthritis M06.00
[2023-09-23 14:12] VITALS: BP 108/60; PULSE 80; O2SAT 98; BMI 28.7
== END 2023-09-23 14:53 | disposition home or self-care (01) ==
PROVIDERS: PCP Internal Medicine; Visit Provider Student in an Organized Health Care Education/Training Program
DX: M06.00 Rheumatoid arthritis without rheumatoid factor, unspecified site (principal)
CPT/HCPCS: 99214

== ENCOUNTER 2023-09-23 14:10 | Outpatient (REF) | payer MEDICARE, MEDICAID, SELFPAY ==
--- NOTE | ~2023-09-23 | XR_ITS ---
EXAMINATION: X-RAYS BILATERAL HAND/WRIST X-RAYS BILATERAL KNEES X-RAYS BILATERAL FEET CLINICAL INFORMATION: Rheumatoid arthritis without rheumatoid factor. Sprain of unspecified joint of right knee. COMPARISON: 02/16/2023, 01/04/2023. Left hand 04/11/2020. Bilateral hands 03/15/2018. TECHNIQUE: 4 views of each knee, 3 views of each foot, 4 views of each wrist. FINDINGS: Right knee: Moderate joint effusion. Tiny tricompartmental osteophytes. Asymmetric narrowing of the lateral patellofemoral compartment. Left knee: Moderate joint effusion. Tiny tricompartmental osteophytes. Minimal narrowing of the medial compartment. Left foot: Mild degenerative changes in the first metatarsal joint. Degenerative changes in the tarsometatarsal joints. Mild plantar and posterior calcaneal spurring. Faint calcification in the inferior aspect of the plantar aspect of the calcaneus. Right foot: Moderate plantar calcaneal spur. Degenerative changes in the tarsometatarsal joints. Posterior calcaneal spur. Moderate degenerative changes in the first metatarsophalangeal joint with joint space narrowing and hypertrophic change. Second through fifth toes are flexed, limiting evaluation. Right hand: Severe degenerative changes at the first carpometacarpal joint with joint space narrowing and hypertrophic change. Concavity along the radial margin of the distal scaphoid appears more pronounced with mild sclerosis. There is a focal lucency in the proximal to mid body of the right scaphoid measuring approximately 6 mm. Mild osteoarthritis in multiple small joints most notable in the DIP joints. Left hand: Severe degenerative changes at the first carpometacarpal joint with joint space narrowing and hypertrophic change. Concavity and irregularity along the distal radial aspect of the scaphoid with small scattered cystic lucencies. Sclerosis and narrowing of the radiocarpal joint. Mild osteoarthritis in multiple small joints most notable in the DIP joints. XR/XR hand wrist LT IMPRESSION: 1. Moderate degenerative changes bilateral knees. 2. Moderate degenerative changes bilateral feet. 3. Severe degenerative changes bilateral first carpometacarpal joints. 4. Concavity and irregularity along the distal radial aspect of the scaphoid bilaterally with small scattered cystic lucencies. 5. Recommend follow-up imaging in 10-14 days if fracture is suspected.
--- NOTE | ~2023-09-23 | XR_ITS ---
EXAMINATION: X-RAYS BILATERAL HAND/WRIST X-RAYS BILATERAL KNEES X-RAYS BILATERAL FEET CLINICAL INFORMATION: Rheumatoid arthritis without rheumatoid factor. Sprain of unspecified joint of right knee. COMPARISON: 02/16/2023, 01/04/2023. Left hand 04/11/2020. Bilateral hands 03/15/2018. TECHNIQUE: 4 views of each knee, 3 views of each foot, 4 views of each wrist. FINDINGS: Right knee: Moderate joint effusion. Tiny tricompartmental osteophytes. Asymmetric narrowing of the lateral patellofemoral compartment. Left knee: Moderate joint effusion. Tiny tricompartmental osteophytes. Minimal narrowing of the medial compartment. Left foot: Mild degenerative changes in the first metatarsal joint. Degenerative changes in the tarsometatarsal joints. Mild plantar and posterior calcaneal spurring. Faint calcification in the inferior aspect of the plantar aspect of the calcaneus. Right foot: Moderate plantar calcaneal spur. Degenerative changes in the tarsometatarsal joints. Posterior calcaneal spur. Moderate degenerative changes in the first metatarsophalangeal joint with joint space narrowing and hypertrophic change. Second through fifth toes are flexed, limiting evaluation. Right hand: Severe degenerative changes at the first carpometacarpal joint with joint space narrowing and hypertrophic change. Concavity along the radial margin of the distal scaphoid appears more pronounced with mild sclerosis. There is a focal lucency in the proximal to mid body of the right scaphoid measuring approximately 6 mm. Mild osteoarthritis in multiple small joints most notable in the DIP joints. Left hand: Severe degenerative changes at the first carpometacarpal joint with joint space narrowing and hypertrophic change. Concavity and irregularity along the distal radial aspect of the scaphoid with small scattered cystic lucencies. Sclerosis and narrowing of the radiocarpal joint. Mild osteoarthritis in multiple small joints most notable in the DIP joints. XR/XR foot LT min 3V IMPRESSION: 1. Moderate degenerative changes bilateral knees. 2. Moderate degenerative changes bilateral feet. 3. Severe degenerative changes bilateral first carpometacarpal joints. 4. Concavity and irregularity along the distal radial aspect of the scaphoid bilaterally with small scattered cystic lucencies. 5. Recommend follow-up imaging in 10-14 days if fracture is suspected.
[2023-09-23 15:27] LABS: MANUAL DIFF FLAG NO
[2023-09-23 15:43] LABS: Basophils Percent Auto 0.4 % (0-2); Eosinophils Percent Auto 0.4 % (0-4); Hematocrit 38.8 % (37.0-47.0); Hemoglobin 12.9 g/dl (12.0-16.0); Imm Gran Abs Auto 0.01 X10*3/uL (0.00-0.03); Imm Gran Pct Auto 0.2 % (0.0-0.4); Lymphocytes Absolute Auto 1.5 X10*3/uL (1.2-4.9); Lymphocytes Percent Auto 31.9 % (20-40); Mean Corpuscular HGB Conc 33.2 g/dl (31.0-35.0); Mean Corpuscular Hemoglobin 29.3 pg (27.0-33.0); Mean Corpuscular Volume 88.2 fL (80.0-98.0); Monocytes Absolute Auto 0.3 X10*3/uL (0.1-1.2); Monocytes Percent Auto 5.8 % (2-11); Neutrophils Absolute Auto 2.9 x10*3/uL (2.0-8.3); Neutrophils Percent Auto 61.3 % (45-73); Platelet Count 253 X10*3/uL (160-400); Red Cell Distribution Width 12.3 % (11.0-16.0); White Blood Count 4.7 X10*3/uL (4.8-10.8)
[2023-09-23 16:29] LABS: Erythrocyte Sedimentation Rate 26 MM/HR (0-20)
[2023-09-23 16:40] LABS: Alanine Aminotransferase 20 U/L (0-31); Albumin Level 4.4 g/dL (3.5-5.0); Alkaline Phosphatase 123 U/L (39-117); Anion Gap 10 (12-20); Aspartate Amino Transferase 22 U/L (5-31); Bilirubin Total 0.7 mg/dL (0.0-1.0); Blood Urea Nitrogen 16 mg/dL (9-16); C Reactive Protein 0.11 mg/dL (< or = 0.50); Calcium 10.3 mg/dL (8.4-10.2); Carbon Dioxide 29 mmol/L (22-29); Chloride 105 mmol/L (96-108); Estimated Glomerular Filt Rate > 60; Glucose Random 101 mg/dL (60-115); Potassium 4.1 mmol/L (3.3-5.1); Sodium 140 mmol/L (135-145); Total Protein 8.9 g/dL (6.5-8.0)
[2023-09-23 16:41] LABS: Rheumatoid Factor < 13.0 IU/mL (<15.0)
[2023-09-23 16:58] LABS: HBS Num1 0.43 mIU/mL (0-7.99); Hepatitis A Antibody IgM 0.11 Index (0-0.79); Hepatitis B Core Antibody Nonreactive (Nonreactive); Hepatitis B Surface Antigen Negative (Negative); ~HepC Num1 0.07 S/CO (0.00-0.79); ~Hepatitis A Antibody IgM Nonreactive (Nonreactive); ~Hepatitis B Surface Antibody NONREACTIVE (Nonreactive); ~Hepatitis C Antibody Nonreactive (Nonreactive)
[2023-09-25 22:23] LABS: TS Negative Control Passed; TS Panel A 0; TS Panel B 0; TS Positive Control Passed; TSpotTB Negative (Negative)
[2023-09-27 23:54] LABS: Cyclic Citrullinated Peptide <16 UNITS
== END 2023-09-23 14:11 | disposition home or self-care (01) ==
LOC: HO.XRAY 14:10
PROVIDERS: PCP Internal Medicine; Visit Provider Student in an Organized Health Care Education/Training Program
DX: Z11.59 Encounter for screening for other viral diseases (principal); Z11.7 Encounter for testing for latent tuberculosis infection; M06.00 Rheumatoid arthritis without rheumatoid factor, unspecified site; Z72.89 Other problems related to lifestyle
CPT/HCPCS: 36415; 73110; 73130; 73564; 73630; 80053; 85025; 85652; 86140; 86200; 86431; 86481; 86704; 86706; 86709; 86803; 87340; 99212

== ENCOUNTER 2023-10-13 14:46 | Outpatient (AMB) | payer MEDICARE, MEDICAID, SELFPAY ==
--- NOTE | 2023-10-13 14:53 | A.OFFVIS_ITS ---
Intake Visit Reasons: Right knee pain Intake Note: Cece is a 58 year old female who presents with complaints of right knee pain. She describes her pain as sharp in nature. Her pain has gotten worse over the last year in spite of continued non operative treatments as well as right knee arthroscopic surgery performed earlier this year. She denies any fevers or chills. She has failed the last 3 months of a home exercise program as well as anti-inflammatory medicines and Tylenol. The patient states that her right knee pain is now interfering with her activities of daily living and ability to sleep well through the night. The patient has had cortisone injections in the past which gave her minimal relief. Allergies gadobutrol [From GADAVIST] Allergy (Severe, Verified 10/13/23 15:09) ANAPHYLAXIS hydroxychloroquine [Plaquenil] Allergy (Intermediate, Verified 10/13/23 15:09) rash,facial swelling levofloxacin [From LEVAQUIN] Allergy (Intermediate, Verified 10/13/23 15:09) ITCHY RASH pregabalin [From LYRICA] Allergy (Intermediate, Verified 10/13/23 15:09) STOMACH UPSET, Swelling tramadol Allergy (Intermediate, Verified 10/13/23 15:09) abdominal pain azathioprine Adverse Reaction (Intermediate, Verified 10/13/23 15:09) Nausea and Vomiting insulin aspart [From Novolog U-100 Insulin aspart] Adverse Reaction (Intermediate, Verified 10/13/23 15:09) chills, shaking, sweating, weakness and tachycardia Ujpekdx-ATE-SvU Reductase Inhibitor Adverse Reaction (Intermediate, Verified 10/13/23 15:09) transamimitis Medication List - Last Reconciled 10/13/23 by Dominick Doyle MD albuterol sulfate 90 mcg/actuation 2 puffs inhalation Q6H PRN 30 days alendronate 70 mg PO QWEEK 90 days [bed rails As directed] bisacodyl 5 mg PO BEDTIME blood sugar diagnostic (FreeStyle Lite Strips) As directed 3 times a day blood-glucose meter (FreeStyle Lite Meter kit) As directed cholecalciferol (vitamin D3) 50 mcg PO DAILY 90 days ergocalciferol (vitamin D2) 1,250 mcg PO QWEEK 90 days flash glucose scanning reader (MorphyStyle Liza 2 [place]) As directed flash glucose sensor (FreeStyle Liza 2 Sensor kit) As directed -change every 14 days fluconazole 150 mg PO Q3D 2 doses folic acid 1 mg PO DAILY hydromorphone (Dilaudid) 4 mg PO Q6H PRN ibuprofen 600 mg PO TID 7 days insulin degludec (Tresiba FlexTouch U-200 insulin) 175 units (0.875 mL) subcut BEDTIME 30 days lancets (FreeStyle Lancets) Use 1 lancet three times a day levothyroxine 200 mcg PO DAILY 90 days levothyroxine 50 mcg PO DAILY 90 days loratadine 10 mg PO DAILY 90 days meloxicam 15 mg PO DAILY PRN mercaptopurine 50 mg PO DAILY omeprazole 40 mg (2 x 20 mg) PO DAILY 90 days ondansetron HCl 8 mg PO DAILY PRN 30 days oxycodone 10 mg PO Q8H PRN 30 days peg 3350-electrolytes 236-22.74-6.74 -5.86 gram (Golytely) 240 mL PO Q10M pen needle, diabetic (BD Ultra-Fine Alivia Pen Needle) As directed 4x/day ropinirole 0.25 mg PO BEDTIME 30 days ropinirole 0.25 mg PO DAILY rosuvastatin 10 mg PO DAILY 90 days tiotropium-olodaterol 2.5-2.5 mcg/actuation (Stiolto Respimat) 2 puffs inhalation DAILY 30 days underpads (Bed Underpads) As directed zolpidem 10 mg PO BEDTIME 30 days PFSH Medical History Osteoarthritis of hand, left Chronic constipation Hypoactive bowel sounds Hand numbness Autoimmune thyroiditis Abdominal pain Inflammatory arthritis Breast mass, right Lung cyst Bilateral hand numbness Neck pain Dyslipidemia Post-surgical hypothyroidism Diabetic polyneuropathy associated with type 2 diabetes mellitus care home (current) use of insulin Chronic idiopathic constipation Low vitamin D level Weight loss GERD (gastroesophageal reflux disease) Diabetes type 2, uncontrolled Fibromyalgia Insomnia Surgical History Hx of arthroscopy of left knee History of liver biopsy Hx of removal of cyst History of hysterectomy History of thyroidectomy, total History of esophagogastroduodenoscopy (EGD) Hx of colonoscopy (1998) Family History Father Status post liver transplant, biliary anastomotic size mismatch Brother Cardiac arrest Mother No problems noted. Maternal Aunt Breast cancer Brother Essential hypertension Substance abuse Pure hypercholesterolemia Other Mental health problem Social History Household Members: None Housing: House Alcohol intake: never Patient Tobacco Use Status: Former Tobacco user Tobacco use type: Cigarette Cigarettes Per Day: 7 Years Smoked: 6 e-Cigarette/Vaping Use: Never Used Second Hand Smoke Exposure: No Advance Directives Date on File: 07/15/20 service: No Current occupational status: disabled Current occupation: right hand Cognitive needs: No Hearing needs: No Vision needs: No Female Reproductive History Menstrual Age of Menarche: 12 Physical Exam Const Other: Well-nourished well-developed very friendly female awake alert and oriented x3 in no acute distress Extrem Other: Bilateral lower extremity examination shows good capillary refill, no skin lesions noted, normal sensation light touch Right knee examination shows a minimal effusion, mild crepitus with range of motion, pain with range of motion, no instability Results Reviewed Results Reviewed: X-rays of the patient's right knee taken last month show moderate joint space narrowing, no acute bony abnormalities Assessment & Plan Assessment & Plan (1) Osteoarthritis of right knee: Code(s): M17.11 - Unilateral primary osteoarthritis, right knee Category: Medical (2) Right knee pain: Code(s): M25.561 - Pain in right knee Category: Medical Plan Ms. Conley presents with right knee pain due to osteoarthritis. I had a lengthy discussion with the patient regarding the treatment options. She wishes to hold off on total knee replacement surgery for as long as possible. I agree with this plan. She has not gotten good relief from cortisone injections in the past. Thus, I will see whether not her insurance company will cover a viscosupplementation injection such as Durolane. I will see her back once the injection is available. Feel free to call me at any time should questions regarding her orthopedic management arise. I spent 21 minutes in reviewing the patient's records and imaging studies, seeing the patient and documenting in the medical record. Coding Level of Care Code Est Pt Level 3 (22931) Diagnoses Osteoarthritis of right knee M17.11 Right knee pain M25.561
== END 2023-10-13 15:37 | disposition home or self-care (01) ==
PROVIDERS: PCP Internal Medicine; Visit Provider Orthopaedic Surgery
DX: M17.11 Unilateral primary osteoarthritis, right knee (principal); M25.561 Pain in right knee
CPT/HCPCS: 99213

== ENCOUNTER → 2023-10-13 14:46 | Outpatient (BNVA) | payer MEDICARE, MEDICAID, SELFPAY | PROVIDERS: PCP Internal Medicine; Visit Provider Orthopaedic Surgery | DX: M17.11 Unilateral primary osteoarthritis, right knee (principal) | CPT/HCPCS: 99212 ==

== ENCOUNTER 2023-10-18 12:44 | Outpatient (AMB) | payer MEDICARE, MEDICAID, SELFPAY ==
--- NOTE | 2023-10-18 12:53 | A.OFFVIS_ITS ---
Vital Signs 10/18/23 13:02 Height 5 ft 7 in Weight 180 lb 12.465 oz BMI 28.3 BP 106/74 Blood Pressure Location Rt brachial Position Sitting Pulse 60 Pulse Source Pulse Oximeter Intake Visit Reasons: Type 2 DM/CONFIRMED Intake Note: New Patient presents today to established treatment for Type 2 Diabetes Mellitus: Most recent Eye Exam: 05/2023 Most recent Podiatry Exam: Does not see a Real Estate Administrative Assistant Most recent HbA1c: 9.2%, 10/18/2023 Random Glucose- 109mg/dL, Today Plant General Manager Required: No Accompanied by: Grand Child Allergies gadobutrol [From GADAVIST] Allergy (Severe, Verified 10/18/23 13:04) ANAPHYLAXIS hydroxychloroquine [Plaquenil] Allergy (Intermediate, Verified 10/18/23 13:04) rash,facial swelling levofloxacin [From LEVAQUIN] Allergy (Intermediate, Verified 10/18/23 13:04) ITCHY RASH pregabalin [From LYRICA] Allergy (Intermediate, Verified 10/18/23 13:04) STOMACH UPSET, Swelling tramadol Allergy (Intermediate, Verified 10/18/23 13:04) abdominal pain azathioprine Adverse Reaction (Intermediate, Verified 10/18/23 13:04) Nausea and Vomiting insulin aspart [From Novolog U-100 Insulin aspart] Adverse Reaction (Intermedi ate, Verified 10/18/23 13:04) chills, shaking, sweating, weakness and tachycardia Gxgkkcv-VGN-YjO Reductase Inhibitor Adverse Reaction (Intermediate, Verified 10/18/23 13:04) transamimitis HPI Comments Details: Patient is a 57-year-old female with DM type 2 diagnosed 2013 who presents for management of diabetes and hypothyroidism. Patient last by Dr. López 06/15/22. 1). Diabetes - Past medical history: Diabetes type 2, hyperlipidemia hypothyroidism, osteopenia, fibromyalgia, rheumatoid arthritis Micro and macrovascular complications: neuropathy A1C has been running in the 9+% Diabetes medications: Tresiba 170 unit if over 200. If less she is taking 80 units. Metformin 1000 mg twice a day not taking because of GI upset She did not tolerate Trulicity due to side effects Symptoms reported: + numbness, tingling, cramping in lower extremities. Reports RLS Hypoglycemia: denies, once a month ago down to 40s. Hyperglycemia: + urinary frequency, + nocturia, + polydypsia Diet: Breakfast: skips , Lunch: skips, Dinner: rice, canas, chicken or fish , Snacks: denies , Drinks throughout day: water Exercise: up and down stairs at home Barrel Turner - not seen CDE education: long time ago Ophthalmology evaluation: earlier this year Other specialists: Rhuemotologist, GI 2) Hypothyroidism Reports total thyroidectomy over 20 years. Denies biotin use Medications: currently on LT4 250mcg since earlier this year in response to elevted TSH. Takes daily. Symptoms: Reports cold intolerance, weight loss, fatigue, dry skin. Denies diarrhea, constipation. Family History: mother has thyroid disease [facility] Medical History (Updated 10/18/23 @ 13:39 by Lindsey Jones NP) Hypothyroidism Type 2 diabetes mellitus Osteoarthritis of hand, left Chronic constipation Hypoactive bowel sounds Hand numbness Autoimmune thyroiditis Abdominal pain Inflammatory arthritis Breast mass, right Lung cyst Bilateral hand numbness Neck pain Dyslipidemia Post-surgical hypothyroidism Diabetic polyneuropathy associated with type 2 diabetes mellitus penitentiary (current) use of insulin Chronic idiopathic constipation Low vitamin D level Weight loss GERD (gastroesophageal reflux disease) Diabetes type 2, uncontrolled Fibromyalgia Insomnia Surgical History Hx of arthroscopy of left knee History of liver biopsy Hx of removal of cyst History of hysterectomy History of thyroidectomy, total History of esophagogastroduodenoscopy (EGD) Hx of colonoscopy (1998) Family History Father Status post liver transplant, biliary anastomotic size mismatch Brother Cardiac arrest Mother No problems noted. Maternal Aunt Breast cancer Brother Essential hypertension Substance abuse Pure hypercholesterolemia Other Mental health problem Social History Household Members: None Housing: House Alcohol intake: never Patient Tobacco Use Status: Former Tobacco user Tobacco use type: Cigarette Cigarettes Per Day: 7 Years Smoked: 6 e-Cigarette/Vaping Use: Never Used Second Hand Smoke Exposure: No Advance Directives Date on File: 07/15/20 service: No Current occupational status: disabled Current occupation: right hand Cognitive needs: No Hearing needs: No Vision needs: No Female Reproductive History Menstrual Age of Menarche: 12 Physical Exam Vital Signs: BMI result Body Mass Index 28.3 Neck Neck: Yes normal visual inspection Thyroid: Thyroid normal Resp Effort & Inspection: normal respiratory effort Auscultation: clear to auscultation bilaterally Cardio Jugular venous distension: no JVD Rate: regular rate Rhythm: regular rhythm Heart sounds: S1 normal heart sound present and S2 normal heart sound present Extrem Other: Visual exam of foot performed. No ulcerations or open lesions. No onchomycosis, no callouses. Sensation intact to monofilament exam. Vibratory sensation is normal with 128 Hz tuning fork. left great toe, small area 3mm blood under nail bed. no lesions Results AMB Hemoglobin A1c AMB Hemoglobin A1c 9.2 % Last Edit by LINDA Coughlin on 10/18/23 13:20 Results Reviewed Results Reviewed: Laboratory Last Values Glucose (Clinic) 109 mg/dL (60-115) 10/18/23 13:09 Laboratory Tests 02/16/23 06/18/23 09/23/23 08:13 07:25 15:24 Potassium 4.1 BUN 16 Creatinine 0.80 Estimated GFR > 60 Calcium 10.3 H Total Bilirubin 0.7 AST 22 ALT 20 Albumin 4.4 Triglycerides 277 H Cholesterol 180 LDL Cholesterol, Calc 83 HDL Cholesterol 42 25-OH Vitamin D Total 26.1 L TSH 11.63 H Assessment & Plan Assessment & Plan (1) Hypothyroidism: Code(s): E03.9 - Hypothyroidism, unspecified Category: Medical Plan: Taking med daily. Will check TSH free T4 as she higuera a dosage change earlier this year (2) Type 2 diabetes mellitus: Code(s): E11.9 - Type 2 diabetes mellitus without complications Category: Medical Plan: continue Tresiba. She was counseled that large swings in dosage makes it difficult to manage sugars. She is unwilling to try bid injections. Start Jardiance Counseled on all side effects (3) Osteoporosis: Code(s): M81.0 - Age-related osteoporosis without current pathological fracture Plan: managed by pcp on alendronate has dexa ordered for later this year Orders: Orders AMB Hemoglobin A1c Today E11.9 - Type 2 diabetes mellitus without complications Free T4 (Free Thyroxine) Today E03.9 - Hypothyroidism, unspecified Thyroid Stimulating Hormone Today E11.65 - Type 2 diabetes mellitus with hyperglycemia Medications: New empagliflozin (Jardiance) 10 mg PO DAILY 30 days 30 tabs 4RF E11.65 - Type 2 diabetes mellitus with hyperglycemia Coding Level of Care Code Est Pt Level 4 (15548) Diagnoses Hypothyroidism E03.9 Type 2 diabetes mellitus E11.9 Osteoporosis M81.0 Time Spent (min) 40 Comment review chart, face to face, documentation
[2023-10-18 13:02] VITALS: BP 106/74; PULSE 60; BMI 28.3
[2023-10-18 13:13] LABS: Glucose, Whole Blood 109 mg/dL (60-115)
== END 2023-10-18 13:38 | disposition home or self-care (01) ==
PROVIDERS: PCP Internal Medicine; Visit Provider Nurse Practitioner Adult Health
DX: E03.9 Hypothyroidism, unspecified (principal); E11.9 Type 2 diabetes mellitus without complications; M81.0 Age-related osteoporosis without current pathological fracture
CPT/HCPCS: 99214

== ENCOUNTER 2023-10-18 12:44 | Outpatient (REF) | payer MEDICARE, MEDICAID, SELFPAY ==
[2023-10-18 15:14] LABS: Free T4 (Free Thyroxine) 1.09 ng/dL (0.71-1.85); Thyroid Stimulating Hormone 0.49 uIU/mL (0.32-4.0)
== END 2023-10-18 12:45 | disposition home or self-care (01) ==
LOC: HO.LAB 12:44
PROVIDERS: PCP Internal Medicine; Visit Provider Nurse Practitioner Adult Health
DX: E11.65 Type 2 diabetes mellitus with hyperglycemia (principal); E03.9 Hypothyroidism, unspecified; E78.5 Hyperlipidemia, unspecified; M81.0 Age-related osteoporosis without current pathological fracture; Z79.84 Long term (current) use of oral hypoglycemic drugs
CPT/HCPCS: 36415; 82947; 83036; 84439; 84443; 99212

== ENCOUNTER 2023-10-31 13:32 | Outpatient (REF) | payer MEDICARE, MEDICAID, SELFPAY ==
[2023-10-31 13:50] LABS: MANUAL DIFF FLAG NO
[2023-10-31 14:27] LABS: Basophils Percent Auto 0.7 % (0-2); Eosinophils Percent Auto 1.3 % (0-4); Hematocrit 35.7 % (37.0-47.0); Hemoglobin 11.8 g/dl (12.0-16.0); Imm Gran Abs Auto 0.01 X10*3/uL (0.00-0.03); Imm Gran Pct Auto 0.3 % (0.0-0.4); Lymphocytes Absolute Auto 1.1 X10*3/uL (1.2-4.9); Lymphocytes Percent Auto 36.2 % (20-40); Mean Corpuscular HGB Conc 33.1 g/dl (31.0-35.0); Mean Corpuscular Volume 87.7 fL (80.0-98.0); Monocytes Absolute Auto 0.2 X10*3/uL (0.1-1.2); Monocytes Percent Auto 6.7 % (2-11); Neutrophils Absolute Auto 1.6 x10*3/uL (2.0-8.3); Neutrophils Percent Auto 54.8 % (45-73); Platelet Count 224 X10*3/uL (160-400); Red Blood Count 4.07 X10*6/uL (4.20-5.50); Red Cell Distribution Width 12.9 % (11.0-16.0)
[2023-10-31 14:59] LABS: Alanine Aminotransferase 35 U/L (0-31); Alkaline Phosphatase 115 U/L (39-117); Anion Gap 10 (12-20); Aspartate Amino Transferase 27 U/L (5-31); Bilirubin Total 0.4 mg/dL (0.0-1.0); Blood Urea Nitrogen 13 mg/dL (9-16); Calcium 9.8 mg/dL (8.4-10.2); Carbon Dioxide 26 mmol/L (22-29); Chloride 107 mmol/L (96-108); Cholesterol 174 mg/dL (<200); Estimated Glomerular Filt Rate > 60; Glucose Fasting 175 mg/dL (60-99); HDL Cholesterol 45 mg/dL (>40); Iron 64 mcg/dL (30-160); LDL Cholesterol Calculated 107 mg/dL (<100); Percent Iron Saturation 24 % (15-50); Potassium 3.9 mmol/L (3.3-5.1); Sodium 139 mmol/L (135-145); Total Iron Binding Capacity 269 mcg/dL (228-428); Total Protein 8.4 g/dL (6.5-8.0); Triglycerides 113 mg/dL (<150); Unsaturated Iron Binding 205 ug/dL
[2023-10-31 15:12] LABS: Erythrocyte Sedimentation Rate 30 MM/HR (0-20)
[2023-10-31 15:13] LABS: Thyroid Stimulating Hormone 10.32 uIU/mL (0.32-4.0); Vitamin D 25-OH Total 23.4 ng/mL (>30)
[2023-10-31 15:21] LABS: Folate 11.1 ng/mL (> or = 4.0); Vitamin B12 654 pg/mL (200-900)
[2023-10-31 15:46] LABS: Creatinine Urine 122.35 mg/dL; Microalbum/Creatinine Ratio Ur 6.5 ug/mg cr (<30)
[2023-11-01 08:38] LABS: Complement C3 130 mg/dL (83-193)
[2023-11-01 20:48] LABS: Anti DNA DS Antibody 2 IU/mL
[2023-11-03 11:04] LABS: ANA Titer 2 1:40 titer; Anti Nuclear Antibody Screen POSITIVE (NEGATIVE)
== END 2023-10-31 13:33 | disposition home or self-care (01) ==
LOC: HO.LAB 13:32
PROVIDERS: PCP Internal Medicine; Visit Provider Internal Medicine
DX: E55.9 Vitamin D deficiency, unspecified (principal); E89.0 Postprocedural hypothyroidism; E11.42 Type 2 diabetes mellitus with diabetic polyneuropathy; M06.00 Rheumatoid arthritis without rheumatoid factor, unspecified site; E78.5 Hyperlipidemia, unspecified; D64.9 Anemia, unspecified; E11.9 Type 2 diabetes mellitus without complications; E53.8 Deficiency of other specified B group vitamins
CPT/HCPCS: 36415; 80053; 80061; 82043; 82306; 82570; 82607; 82746; 83540; 84443; 85025; 85652; 86038; 86039; 86160; 86225

== ENCOUNTER 2023-11-01 16:23 | Outpatient (AMB) | payer MEDICARE, MEDICAID, SELFPAY ==
[2023-11-01 16:45] VITALS: BP 118/70; BMI 29.1
--- NOTE | 2023-11-01 16:45 | MHC.PC.OV ---
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 Technician Required: No Accompanied by: Self / Same As Patient Allergies gadobutrol [From GADAVIST] Allergy (Severe, Verified 11/01/23 17:08) ANAPHYLAXIS hydroxychloroquine [Plaquenil] Allergy (Intermediate, Verified 11/01/23 17:08) rash,facial swelling levofloxacin [From LEVAQUIN] Allergy (Intermediate, Verified 11/01/23 17:08) ITCHY RASH pregabalin [From LYRICA] Allergy (Intermediate, Verified 11/01/23 17:08) STOMACH UPSET, Swelling tramadol Allergy (Intermediate, Verified 11/01/23 17:08) abdominal pain azathioprine Adverse Reaction (Intermediate, Verified 11/01/23 17:08) Nausea and Vomiting insulin aspart [From Novolog U-100 Insulin aspart] Adverse Reaction (Intermediate, Verified 11/01/23 17:08) chills, shaking, sweating, weakness and tachycardia Zaqnugt-OUJ-HtD Reductase Inhibitor Adverse Reaction (Intermediate, Verified 11/01/23 17:08) transamimitis Medication List - Last Reconciled 11/01/23 by Becca Newberry MD albuterol sulfate 90 mcg/actuation 2 puffs inhalation Q6H PRN 30 days alendronate 70 mg PO QWEEK 90 days [bed rails As directed] bisacodyl 5 mg PO BEDTIME blood sugar diagnostic (FreeStyle Lite Strips) As directed 3 times a day blood-glucose meter (FreeStyle Lite Meter kit) As directed cholecalciferol (vitamin D3) 50 mcg PO DAILY 90 days empagliflozin (Jardiance) 10 mg PO DAILY 30 days ergocalciferol (vitamin D2) 1,250 mcg PO QWEEK 90 days flash glucose scanning reader (Anpath GroupStyle Liza 2 [place]) As directed flash glucose sensor (FreeStyle Liza 2 Sensor kit) As directed -change every 14 days folic acid 1 mg PO DAILY hydromorphone (Dilaudid) 4 mg PO Q6H PRN ibuprofen 600 mg PO TID 7 days insulin degludec (Tresiba FlexTouch U-200 insulin) 175 units (0.875 mL) subcut BEDTIME 30 days lancets (FreeStyle Lancets) Use 1 lancet three times a day levothyroxine 200 mcg PO DAILY 90 days levothyroxine 25 mcg PO DAILY 30 days loratadine 10 mg PO DAILY 90 days meloxicam 15 mg PO DAILY PRN mercaptopurine 50 mg PO DAILY omeprazole 40 mg (2 x 20 mg) PO DAILY 90 days ondansetron HCl 8 mg PO DAILY PRN 30 days oxycodone 10 mg PO Q8H PRN 30 days peg 3350-electrolytes 236-22.74-6.74 -5.86 gram (Golytely) 240 mL PO Q10M pen needle, diabetic (BD Ultra-Fine Alivia Pen Needle) As directed 4x/day ropinirole 0.25 mg PO BEDTIME 30 days ropinirole 0.25 mg PO DAILY rosuvastatin 10 mg PO DAILY 90 days tiotropium-olodaterol 2.5-2.5 mcg/actuation (Stiolto Respimat) 2 puffs inhalation DAILY 30 days underpads (Bed Underpads) As directed zolpidem 10 mg PO BEDTIME 30 days Tobacco use date assessed: 06/22/23 Dental Screening Dental Screen Date: 06/22/23 HPI HPI Comments History of Present Illness Details This is a 58-year-old female with autoimmune thyroiditis, autoimmune hepatitis, seronegative rheumatoid arthritis, diabetes mellitus type 2 with hyperglycemia with long-term current use of insulin, hyperlipidemia and mild major depression that comes today for follow-up on her conditions. TSH is elevated and I will increase levothyroxine from 225 mcg to 250 mcg. Thyroid function test will be repeated in 6 weeks. Rheumatoid arthritis is follow by Rheumatology. Autoimmune hepatitis is follow by Gastroenterology at [facility] and [facility]. Has been well controlled with mercaptopurine. Last A1c was not on goal and she follows with endocrinology which make recent adjustments in her insulin. I will add Ozempic. Patient was advised that it can cause abdominal pain, nausea and vomiting and if she develop any side effects she needs to discontinue it. LDL was not on goal and dietary changes were advised. Lipid panel will be repeated in 4 months. Depression is still present and she declines medication or counseling. No chest pain or shortness on breath. [facility] Medical History (Updated 11/01/23 @ 19:58 by Becca Newberry MD) Pulmonary emphysema Hypothyroidism Type 2 diabetes mellitus Osteoarthritis of hand, left Chronic constipation Hypoactive bowel sounds Hand numbness Autoimmune thyroiditis Abdominal pain Inflammatory arthritis Breast mass, right Lung cyst Bilateral hand numbness Neck pain Dyslipidemia Post-surgical hypothyroidism Diabetic polyneuropathy associated with type 2 diabetes mellitus senior care (current) use of insulin Chronic idiopathic constipation Low vitamin D level Weight loss GERD (gastroesophageal reflux disease) Diabetes type 2, uncontrolled Fibromyalgia Insomnia Surgical History Hx of arthroscopy of left knee History of liver biopsy Hx of removal of cyst History of hysterectomy History of thyroidectomy, total History of esophagogastroduodenoscopy (EGD) Hx of colonoscopy (1998) Family History Father Status post liver transplant, biliary anastomotic size mismatch Brother Cardiac arrest Mother No problems noted. Maternal Aunt Breast cancer Brother Essential hypertension Substance abuse Pure hypercholesterolemia Other Mental health problem Social History Household Members: None Housing: House Alcohol intake: never Patient Tobacco Use Status: Former Tobacco user Tobacco use type: Cigarette Cigarettes Per Day: 7 Years Smoked: 6 e-Cigarette/Vaping Use: Never Used Second Hand Smoke Exposure: No Advance Directives Date on File: 07/15/20 service: No Current occupational status: disabled Current occupation: right hand Cognitive needs: No Hearing needs: No Vision needs: No Female Reproductive History Menstrual Age of Menarche: 12 Questionnaire Thrive Questionnaire Date Thrive assessed: 06/22/23 HATTIE-7 AMB Questionnaire HATTIE-7 Date HATTIE - 7 assessed: 06/22/23 Source: Developed by Drs. Esdras Tang, April Mathews, Bobby Toussaint and colleagues, with an educational antonella from [employer]. Review of Systems Const All systems reviewed & are unremarkable except as noted in HPI and below Card Denies chest pain at rest, Denies chest pain with activity, Denies edema, Denies irregular heart rhythm, Denies claudication, Denies dyspnea, Denies dyspnea on exertion, Denies orthopnea, Denies paroxysmal nocturnal dyspnea and Denies slow heart rate Resp Denies cough, Denies dyspnea and Denies dyspnea on exertion GI Denies abdominal pain, Denies change in bowel habits, Denies excessive flatus, Denies nausea and Denies vomiting Denies urinary incontinence, Denies urinary hesitancy and Denies urinary urgency Physical exam (Primary Care) Vital Signs: Last Vital Signs BP 118/70 11/01/23 16:45 BMI result Body Mass Index 29.1 Tobacco/Smoking Status: Tobacco use Status Tobacco use date assessed 06/22/23 11/01/23 16:52 Patient Tobacco Use Status Former Tobacco user 11/01/23 16:52 Tobacco use type Cigarette 11/01/23 16:52 e-Cigarette/Vaping Use Never Used 11/01/23 16:52 Thrive Assessment: Date of Thrive Assessment Date Thrive assessed 06/22/23 11/01/23 16:52 Resp Effort & Inspection: normal respiratory effort Auscultation: clear to auscultation bilaterally Cardio Jugular venous distension: no JVD Rate: regular rate Rhythm: regular rhythm Heart sounds: S1 normal heart sound present and S2 normal heart sound present Extrem General: Yes full ROM Assessment and Plan Assessment & Plan (1) Type 2 diabetes mellitus: Code(s): E11.9 - Type 2 diabetes mellitus without complications Qualifiers: Diabetes mellitus shelter insulin use: with termite exterminator use Diabetes mellitus complication status: with hyperglycemia Qualified Code(s): E11.65 - Type 2 diabetes mellitus with hyperglycemia; Z79.4 - senior care (current) use of insulin Plan: Continue insulin. Start Ozempic. A1c goal is equal or less than 7%. (2) Mild major depression: Code(s): F32.0 - Major depressive disorder, single episode, mild Plan: Declines treatment. Advised to seek counseling if needed. (3) Autoimmune hepatitis: Code(s): K75.4 - Autoimmune hepatitis Plan: Continue mercaptopurine. Follow-up with Gastroenterology. (4) Hyperlipidemia LDL goal <70: Code(s): E78.5 - Hyperlipidemia, unspecified Plan: Continue statins. Advise low-cholesterol diet. LDL goal is less than 70. (5) Seronegative rheumatoid arthritis: Comment: Methotrexate 11/2020-July 2021. Code(s): M06.00 - Rheumatoid arthritis without rheumatoid factor, unspecified site Plan: Follow-up with rheumatology. (6) Autoimmune thyroiditis: Code(s): E06.3 - Autoimmune thyroiditis Plan: Increase levothyroxine to 250 mcg. Repeat TSH in 6 weeks. Orders: Orders Rast Allergen Today Z88.9 - Allergy status to unspecified drugs, medicaments and biological substances Thyroid Stimulating Hormone 6 Weeks E03.9 - Hypothyroidism, unspecified Medications: New semaglutide (Ozempic) for 4 weeks 0.25 mg (0.368 mL) subcut QWEEK 1.472 mL 0RF 4 weeks E11.9 - Type 2 diabetes mellitus without complications levothyroxine 50 mcg PO DAILY 90 tabs 0RF 90 days Coding Level of Care Code Est Pt Level 4 (64296) Diagnoses Type 2 diabetes mellitus with hyperglycemia, with long-term current use of insulin E11.65; Z79.4 Diabetes mellitus termite exterminator insulin use: with shelter use Diabetes mellitus complication status: with hyperglycemia Mild major depression F32.0 Autoimmune hepatitis K75.4 Hyperlipidemia LDL goal <70 E78.5 Seronegative rheumatoid arthritis M06.00 Autoimmune thyroiditis E06.3 Time Spent (min) 28
== END 2023-11-01 17:23 | disposition home or self-care (01) ==
LOC: HO.HMGH 16:23
PROVIDERS: PCP Internal Medicine; Visit Provider Internal Medicine
DX: E11.65 Type 2 diabetes mellitus with hyperglycemia (principal); Z79.4 Long term (current) use of insulin; F32.0 Major depressive disorder, single episode, mild; K75.4 Autoimmune hepatitis; M06.00 Rheumatoid arthritis without rheumatoid factor, unspecified site; E78.5 Hyperlipidemia, unspecified; E06.3 Autoimmune thyroiditis
CPT/HCPCS: 99214

== ENCOUNTER 2023-11-09 14:06 | Outpatient (AMB) | payer MEDICARE, MEDICAID, SELFPAY ==
--- NOTE | 2023-11-09 14:11 | MHC.OFFVIS ---
Intake Visit Reasons: Right knee pain Intake Note: Cece is a 58 year old female who presents with complaints of intermittent discomfort in her right knee after undergoing right knee arthroscopic surgery on 07/08/2023. The patient states that over the last few weeks her discomfort has improved significantly. She was initially scheduled to undergo a right knee Durolane viscosupplementation injection today. The patient does not wish for the injection today because her symptoms are tolerable to her. She denies any fevers or chills. She denies any locking or giving way. Allergies gadobutrol [From GADAVIST] Allergy (Severe, Verified 11/09/23 14:11) ANAPHYLAXIS hydroxychloroquine [Plaquenil] Allergy (Intermediate, Verified 11/09/23 14:11) rash,facial swelling levofloxacin [From LEVAQUIN] Allergy (Intermediate, Verified 11/09/23 14:11) ITCHY RASH pregabalin [From LYRICA] Allergy (Intermediate, Verified 11/09/23 14:11) STOMACH UPSET, Swelling tramadol Allergy (Intermediate, Verified 11/09/23 14:11) abdominal pain azathioprine Adverse Reaction (Intermediate, Verified 11/09/23 14:11) Nausea and Vomiting insulin aspart [From Novolog U-100 Insulin aspart] Adverse Reaction (Intermediate, Verified 11/09/23 14:11) chills, shaking, sweating, weakness and tachycardia Gcvbitu-CQZ-GvL Reductase Inhibitor Adverse Reaction (Intermediate, Verified 11/09/23 14:11) transamimitis Medication List - Last Reconciled 11/09/23 by Dominick Doyle MD albuterol sulfate 90 mcg/actuation 2 puffs inhalation Q6H PRN 30 days alendronate 70 mg PO QWEEK 90 days [bed rails As directed] bisacodyl 5 mg PO BEDTIME bisacodyl (Dulcolax (bisacodyl)) 20 mg (4 x 5 mg) PO ONCE 1 day blood sugar diagnostic (FreeStyle Lite Strips) As directed 3 times a day blood-glucose meter (FreeStyle Lite Meter kit) As directed cholecalciferol (vitamin D3) 50 mcg PO DAILY 90 days empagliflozin (Jardiance) 10 mg PO DAILY 30 days ergocalciferol (vitamin D2) 1,250 mcg PO QWEEK 90 days flash glucose scanning reader (FreeStyle Liza 2 [place]) As directed flash glucose sensor (FreeStyle Liza 2 Sensor kit) As directed -change every 14 days folic acid 1 mg PO DAILY ibuprofen 600 mg PO TID 7 days insulin degludec (Tresiba FlexTouch U-200 insulin) 175 units (0.875 mL) subcut BEDTIME 30 days lancets (FreeStyle Lancets) Use 1 lancet three times a day levothyroxine 200 mcg PO DAILY 90 days levothyroxine 50 mcg PO DAILY 90 days levothyroxine 25 mcg PO DAILY 30 days loratadine 10 mg PO DAILY 90 days meloxicam 15 mg PO DAILY PRN mercaptopurine 50 mg PO DAILY omeprazole 40 mg (2 x 20 mg) PO DAILY 90 days ondansetron HCl 8 mg PO DAILY PRN 30 days oxycodone 10 mg PO Q8H PRN 30 days peg 3350-electrolytes 236-22.74-6.74 -5.86 gram (Golytely) 240 mL PO Q10M pen needle, diabetic (BD Ultra-Fine Alivia Pen Needle) As directed 4x/day ropinirole 0.25 mg PO BEDTIME 30 days ropinirole 0.25 mg PO DAILY rosuvastatin 10 mg PO DAILY 90 days semaglutide (Ozempic) 0.25 mg (0.368 mL) subcut QWEEK 4 weeks tiotropium-olodaterol 2.5-2.5 mcg/actuation (Stiolto Respimat) 2 puffs inhalation DAILY 30 days underpads (Bed Underpads) As directed zolpidem 10 mg PO BEDTIME 30 days [facility] Medical History (Updated 11/01/23 @ 19:58 by Becca Newberry MD) Pulmonary emphysema Hypothyroidism Type 2 diabetes mellitus Osteoarthritis of hand, left Chronic constipation Hypoactive bowel sounds Hand numbness Autoimmune thyroiditis Abdominal pain Inflammatory arthritis Breast mass, right Lung cyst Bilateral hand numbness Neck pain Dyslipidemia Post-surgical hypothyroidism Diabetic polyneuropathy associated with type 2 diabetes mellitus 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 Maternal Aunt Breast cancer Brother Essential hypertension Substance abuse Pure hypercholesterolemia Other Mental health problem Social History Household Members: None Housing: House Alcohol intake: never Patient Tobacco Use Status: Former Tobacco user Tobacco use type: Cigarette Cigarettes Per Day: 7 Years Smoked: 6 e-Cigarette/Vaping Use: Never Used Second Hand Smoke Exposure: No Advance Directives Date on File: 07/15/20 service: No Current occupational status: disabled Current occupation: right hand Cognitive needs: No Hearing needs: No Vision needs: No Female Reproductive History Menstrual Age of Menarche: 12 Physical Exam Const Other: Well-nourished well-developed very friendly female awake alert and oriented x3 in no acute distress Extrem Other: Bilateral lower extremity examination shows good capillary refill, no skin lesions noted, normal sensation light touch Right knee examination shows that the surgical incisions are well healed, no erythema, minimal discomfort with range of motion, minimal crepitus with range of motion, no instability Assessment & Plan Assessment & Plan (1) Right knee pain: Code(s): M25.561 - Pain in right knee Category: Medical Plan Ms. Conley presents with intermittent right knee discomfort due to early degenerative joint disease. I had a lengthy discussion with the patient regarding the treatment options. At this time her symptoms are tolerable to her. We will hold off on the Durolane injection. She will continue with her home exercise program. She will follow up with me on an as-needed basis should her symptoms worsen in any way. Feel free to call me at any time should questions regarding her orthopedic management arise. I spent 20 minutes in reviewing the patient's records and imaging studies, seeing the patient and documenting in the medical record. Coding Level of Care Code Est Pt Level 3 (86833) Diagnoses Right knee pain M25.561
== END 2023-11-09 14:36 | disposition home or self-care (01) ==
PROVIDERS: PCP Internal Medicine; Visit Provider Orthopaedic Surgery
DX: M25.561 Pain in right knee (principal)
CPT/HCPCS: 99213

== ENCOUNTER → 2023-11-09 14:06 | Outpatient (BNVA) | payer MEDICARE, MEDICAID, SELFPAY | PROVIDERS: PCP Internal Medicine; Visit Provider Orthopaedic Surgery | DX: M25.561 Pain in right knee (principal) | CPT/HCPCS: 99212 ==

== ENCOUNTER 2023-11-22 09:15 | Day surgery (SDC) | payer MEDICARE, MEDICAID, SELFPAY ==
[2023-11-22 09:28] VITALS: BMI 28.1
[2023-11-22 09:42] VITALS: BP 116/67; PULSE 77; RESP 16; TEMP 36.6; O2SAT 98
[2023-11-22 09:49] LABS: Glucose, Whole Blood 193 mg/dL (60-115)
[2023-11-22] MEDS: Lactated Ringers 1,000 ML 80 ML IVCONT (09:51)
--- NOTE | 2023-11-22 10:02 | P.HPSUR_ITS ---
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 Chronic idiopathic constipation Low vitamin D level Weight loss GERD (gastroesophageal reflux disease) Diabetes type 2, uncontrolled Fibromyalgia Insomnia Surgical History History of liver biopsy Hx of removal of cyst History of hysterectomy History of thyroidectomy, total History of esophagogastroduodenoscopy (EGD) Hx of colonoscopy (1998) Allergies: Allergies Allergy/AdvReac Type Severity Reaction Status Date / Time gadobutrol [From GADAVIST] Allergy Severe ANAPHYLAXIS Verified 11/09/23 14:11 hydroxychloroquine Allergy Intermediate rash,facial Verified 11/09/23 14:11 [Plaquenil] swelling levofloxacin [From LEVAQUIN] Allergy Intermediate ITCHY RASH Verified 11/09/23 14:11 pregabalin [From LYRICA] Allergy Intermediate STOMACH Verified 11/09/23 14:11 UPSET, Swelling tramadol Allergy Intermediate abdominal Verified 11/09/23 14:11 pain azathioprine AdvReac Intermediate Nausea and Verified 11/09/23 14:11 Vomiting insulin aspart AdvReac Intermediate chills, Verified 11/09/23 14:11 [From Novolog U-100 Insulin shaking, aspart] sweating, weakness and tachycardia [id number] Reductase AdvReac Intermediate transamimit Verified 11/09/23 14:11 Inhibitor is Review of Systems Review of Systems Comment: Ten point ROS negative Exam Exam Comment: Gen appear: No acute distress HEENT: no icterus Chest: No overt resp distress Abd: soft, nontender, nondistended Psych: Stable affect, answering questions appropriately Neuro: A/Ox3 noted to move all extremities spontaneously Ext: no peripheral edema Plan Diagnosis/Plan: Unchanged I have reviewed the history and physical and performed a pertinent physical examination on my patient. No changes have occurred unless specified. Time Spent With Patient Time: Total time managing care of this patient today ____ minutes.
--- NOTE | 2023-11-22 10:03 | P.OP_ITS ---
Operative Note Operative Note Date of Service: 11/22/23 Narrative: Procedure: Colonoscopy Indication: [Screening] [Personal history of polyps] [Chronic Diarrhea] [Lower GI bleeding] [Anemia] [+ FIT test] [Family history of colon cancer] Endoscopist: Cindy Zheng MD Anesthesia Provider: Anesthesia type: [MAC] [General Anesthesia] Instrument: Olympus [id number]-H190L Consent: Indication, risks vs benefits, and alternatives were discussed with the patient who gave written informed consent to proceed. [An youth worker was utilized to assist with the consent]. Monitoring: EKG, pulse, pulse oximetry and blood pressure were monitored throughout the procedure. Please see anesthesia flowsheet. Procedure: The patient was brought to the procedure room and placed in the left lateral decubitus position. IV medications were administered by the anesthesia provider in attendance. A digital rectal exam was performed which was [normal] [abnormal due to finding of hemorrhoids, anal tag, anal fistula]. The colonoscope was then inserted through the anus and advanced through the colon to the cecum at [cm,][and terminal ileum]. Mucosa was carefully examined under high definition white light as the instrument was slowly withdrawn in a retrograde panoramic fashion. Retroflexion was performed in [ascending colon and] rectum. The procedure was [not difficult] [somewhat difficult]. There were no immediate obvious complications. The quality of the prep was BBPS: []+[]+[] = [adequate] [inadequate in] Withdrawal time [] minutes. Limitations: [No limitations.] [Poor prep.] Findings: Mucosa: [Normal to cecum and terminal ileum.] [Loss of normal vacular pattern] [Erythema and congestion] [Erosions and ulceration] [Cobblestoning] [Random biopsies were taken to r/o microscopic colitis] [Cold forceps biopsies were taken from [colon] and sent for histology.] Protruding lesions: * [] [sessile] [semi-pedunculated] [pedunculated] polyp of size [] mm in []colon. Cold snare polypectomy was performed. The polyp was completely removed and retrieved. * [] [sessile] [semi-pedunculated] [pedunculated] polyp of size [] mm in []colon. Cold snare polypectomy was performed. The polyp was completely removed and retrieved. * [] [sessile] [semi-pedunculated] [pedunculated] polyp of size [] mm in []colon. Cold snare polypectomy was performed. The polyp was completely removed and retrieved. * [Medium] [Large] external hemorrhoids [without] stigmata of recent bleeding. Excavated lesions: * [Small] [Medium] [Large] diverticulosis of [sigmoid] [left sided] [whole] colon. Impression: 1. Normal colon mucosa 2. Total of [] polyps removed from [cecum,] [ascending,] [transverse,] [descendi ng,] [and sigmoid] colon [and rectum]. 3. External hemorrhoids Recommendations: - Follow path results. - Repeat colonoscopy in [3] [5-7] [7-10] years if polyps are adenomas or sessile serrated.
--- NOTE | 2023-11-22 10:28 | P.OPN-COLO_ITS ---
Colonoscopy Operative Note Operative Note Date of Service: 11/22/23 Narrative: Procedure: Colonoscopy Indication: Screening Endoscopist: Cindy Zheng MD Anesthesia Provider: Al Canela CRNA Anesthesia type: MAC Instrument: Olympus [id number]-[id number] Consent: Indication, risks vs benefits, and alternatives were discussed with the patient who gave written informed consent to proceed. EKG, pulse, pulse oximetry and blood pressure were monitored throughout the procedure. Please see anesthesia flowsheet. Procedure: The patient was brought to the procedure room and placed in the left lateral decubitus position. IV medications were administered by the anesthesia provider in attendance. A digital rectal exam was performed which was abnormal due to finding of ext hemorrhoids. A distal attachment cap was affixed to the tip of the colonoscope which was then inserted through the anus and advanced through the colon to the cecum at 80 cm,and terminal ileum. Appendiceal orifice and ileocecal valve were identified. Mucosa was carefully examined under high definition white light as the instrument was slowly withdrawn in a retrograde panoramic fashion. Retroflexion was performed in ascending colon and rectum. The procedure was not difficult. There were no immediate obvious complications. The quality of the prep was BBPS: 2+3+2 = adequate Withdrawal time 10 minutes. Limitations: No limitations. Findings: Mucosa: Normal to cecum and terminal ileum. Protruding lesions: * Medium internal hemorrhoids without stigmata of recent bleeding. Excavated lesions: * Moderate diverticulosis of left sided colon. Impression: 1. Normal colon and terminal ileum mucosa 2. Diverticulosis 3. Internal and external hemorrhoids Recommendations: - repeat colonoscopy for asymptomatic colorectal cancer screening in 10 years
[2023-11-22 10:30] VITALS: BP 98/54; PULSE 72; RESP 16; TEMP 36.4; O2SAT 98
[2023-11-22 10:45] VITALS: BP 101/67; PULSE 72; RESP 16; TEMP 36.3; O2SAT 99
--- NOTE | 2023-11-22 10:55 | HO.ANESPROP2 ---
HPI - Anesthesia Eval Consult details Narrative: colon screen Anesthesia Pre-Procedure Meds If yes to any meds - educate patient: Pt education - increased risk of aspiration and/or euvolemic DKA and Pt education - possibility of cancelled proc at provider's discretion PMFSH Active Problems Active Problems: All Active Problems (Updated 11/01/23 @ 19:58 by Becca Newberry MD) Multiple allergies (Acute) Hypothyroidism (Acute) Type 2 diabetes mellitus (Acute) Osteoarthritis of right knee (Acute) Primary osteoarthritis, right shoulder (Acute) Pain of right scapula (Acute) Right leg pain (Acute) Urge urinary incontinence (Acute) Right knee pain (Acute) Right calf pain (Acute) Mild major depression (Acute) Physical exam (Acute) Lumbar degenerative disc disease (Acute) Osteoarthritis of left knee (Acute) H/O arthroscopy of left knee (Acute) Sprain of right knee (Acute) Dilated bile duct (Acute) Osteopenia (Acute) Left knee pain (Acute) Chest pain (Acute) Tear of medial meniscus of left knee (Acute) Left knee sprain (Acute) H. pylori infection (Acute) Hyperlipidemia LDL goal <70 (Acute) Oral thrush (Acute) Long-term current use of steroids (Acute) Autoimmune thyroiditis (Acute) Autoimmune hepatitis (Acute) Generalized pain (Acute) Elevated liver enzymes (Acute) Dysphagia (Acute) Palpitations (Acute) Goiter (Acute) Abdominal pain (Acute) Abscess (Acute) Yeast infection involving the vagina and surrounding area (Acute) Vaginal irritation (Acute) Low back pain (Acute) Encounter for screening colonoscopy (Acute) Seronegative rheumatoid arthritis (Acute) Dyspnea on exertion (Acute) Left wrist pain (Acute) Left hand pain (Acute) Rotator cuff tendonitis (Acute) De Quervain's disease (radial styloid tenosynovitis) (Acute) Osteoarthritis of hand, left (Acute) Chronic constipation (Acute) Hypoactive bowel sounds (Acute) Hand numbness (Acute) Autoimmune thyroiditis (Acute) Abdominal pain (Acute) Inflammatory arthritis (Acute) Breast mass, right (Acute) Lung cyst (Acute) Bilateral hand numbness (Acute) Neck pain (Acute) Dyslipidemia (Acute) Post-surgical hypothyroidism (Acute) Chronic idiopathic constipation (Acute) Low vitamin D level (Acute) Weight loss (Acute) GERD (gastroesophageal reflux disease) (Acute) Fibromyalgia (Acute) Insomnia (Acute) Past Medical History Medical History Pulmonary emphysema Hypothyroidism Type 2 diabetes mellitus Osteoarthritis of hand, left Chronic constipation Hypoactive bowel sounds Hand numbness Autoimmune thyroiditis Abdominal pain Inflammatory arthritis Breast mass, right Lung cyst Bilateral hand numbness Neck pain Dyslipidemia Post-surgical hypothyroidism Diabetic polyneuropathy associated with type 2 diabetes mellitus 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 Maternal Aunt Breast cancer Brother Essential hypertension Substance abuse Pure hypercholesterolemia Other Mental health problem Family history of problems with anesthesia: No Surgical History Surgical History Hx of arthroscopy of left knee History of liver biopsy Hx of removal of cyst History of hysterectomy History of thyroidectomy, total History of esophagogastroduodenoscopy (EGD) Hx of colonoscopy (1998) History of Problems with Anesthesia: No Social History Social History Household Members: None Housing: House Alcohol intake: never Patient Tobacco Use Status: Former Tobacco user Tobacco use type: Cigarette Cigarettes Per Day: 7 Years Smoked: 6 e-Cigarette/Vaping Use: Never Used Second Hand Smoke Exposure: No Use of substances other than those prescribed or required for medical reasons: No Are you DNR?: No Advance Directives: No Advance Directives Information Provided: Yes Advance Directives Date on File: 07/15/20 Recently lost weight without trying: No Nutrition Risks: No Nutritional Risk Patient : No service: No Current occupational status: disabled Current occupation: right hand Cognitive needs: No Hearing needs: No Vision needs: No Meds Allergies Allergy/AdvReac Type Severity Reaction Status Date / Time gadobutrol [From GADAVIST] Allergy Severe ANAPHYLAXIS Verified 11/09/23 14:11 hydroxychloroquine Allergy Intermediate rash,facial Verified 11/09/23 14:11 [Plaquenil] swelling levofloxacin [From LEVAQUIN] Allergy Intermediate ITCHY RASH Verified 11/09/23 14:11 pregabalin [From LYRICA] Allergy Intermediate STOMACH Verified 11/09/23 14:11 UPSET, Swelling tramadol Allergy Intermediate abdominal Verified 11/09/23 14:11 pain azathioprine AdvReac Intermediate Nausea and Verified 11/09/23 14:11 Vomiting insulin aspart AdvReac Intermediate chills, Verified 11/09/23 14:11 [From Novolog U-100 Insulin shaking, aspart] sweating, weakness and tachycardia [id number] Reductase AdvReac Intermediate transamimit Verified 11/09/23 14:11 Inhibitor is Active Medications: Current Medications Lactated Ringer's (Lr) 1,000 mls @ 80 mls/hr IVCONT .[id number] JEANETTE Last Admin: 11/22/23 09:51 Dose: 80 mls/hr Home Medications ?Medication ?Instructions ?Recorded ?Confirmed ?Last Taken ?Type bisacodyl 5 mg tablet,delayed 5 mg PO BEDTIME 03/04/22 11/09/23 Unknown History release ropinirole 0.25 mg tablet 0.25 mg PO DAILY 03/14/23 11/09/23 Unknown History Exam Height,Weight and Vital Signs: Height 5 ft 7 in Weight 81.363 kg Last Vital Signs Temp 97.6 F 11/22/23 10:30 Pulse 72 11/22/23 10:30 Resp 16 11/22/23 10:30 BP 98/54 L 11/22/23 10:30 Pulse Ox 98 11/22/23 10:30 O2 Del Method Room Air 11/22/23 10:30 Pertinent Lab Results Pertinent Lab Results: Laboratory Tests 11/22/23 09:45 POC Glucose 193 H Airway Mallampati Class: II TM Dist: >3cm Heart: rrr Lungs: cta Assessment and Plan Assessment Anesthesia Assessment: Anesthesia Plan Discussed Final Anesthetic Review Family History of Problems with Anesthesia: No History of Problems with Anesthesia: No NPO: Yes ASA Class: III Final Preanesthetic Review: No Changes in Pt Med Stat, Meds/Allgs Chart Reviewed and Consent Obtained/Reviewed Patient Risk: Intermediate Procedure Risk: Low Anesthetic Plan Anesthetic Plan: MAC: Disposition: Standard PACU
== END 2023-11-22 11:15 | disposition home or self-care (01) ==
PROVIDERS: PCP Internal Medicine; Visit Provider Internal Medicine
PROC: 0DJD8ZZ Inspection of Lower Intestinal Tract, Via Natural or Artificial Opening Endoscopic (ICD-10-PCS; CPT 45378; principal; 2023-11-22 10:40)
DX: Z12.11 Encounter for screening for malignant neoplasm of colon (principal); K57.30 Diverticulosis of large intestine without perforation or abscess without bleeding; K64.8 Other hemorrhoids; K64.4 Residual hemorrhoidal skin tags; R19.12 Hyperactive bowel sounds; K59.04 Chronic idiopathic constipation; K75.4 Autoimmune hepatitis; M79.7 Fibromyalgia; E06.3 Autoimmune thyroiditis; E89.0 Postprocedural hypothyroidism; E11.42 Type 2 diabetes mellitus with diabetic polyneuropathy; Z87.19 Personal history of other diseases of the digestive system; M85.80 Other specified disorders of bone density and structure, unspecified site; Z79.4 Long term (current) use of insulin; Z79.52 Long term (current) use of systemic steroids; Z88.1 Allergy status to other antibiotic agents; Z88.8 Allergy status to other drugs, medicaments and biological substances; Z91.041 Radiographic dye allergy status; Z98.890 Other specified postprocedural states; Z87.891 Personal history of nicotine dependence
CPT/HCPCS: G0121; 82947; J2704

== ENCOUNTER → 2023-11-22 09:15 | Outpatient (BNV) | payer MEDICARE, MEDICAID, SELFPAY | PROVIDERS: PCP Internal Medicine; Visit Provider Internal Medicine | DX: Z12.11 Encounter for screening for malignant neoplasm of colon (principal) | CPT/HCPCS: G0121 ==

== ENCOUNTER 2023-12-23 14:56 | Outpatient (AMB) | payer MEDICARE, MEDICAID, SELFPAY ==
[2023-12-23 15:00] VITALS: BP 102/62; PULSE 61; O2SAT 98; BMI 28.1
--- NOTE | 2023-12-23 15:00 | MHC.OFFVIS ---
Vital Signs 12/23/23 15:00 Height 5 ft 7 in Weight 179 lb 10.828 oz BMI 28.1 BP 102/62 Blood Pressure Location Rt brachial Position Sitting Pulse 61 Pulse Source Doppler Pulse Oximetry (%) 98 Oxygen Delivery Method Room Air Intake Visit Reasons: Asthma Allergies gadobutrol [From GADAVIST] Allergy (Severe, Verified 12/23/23 15:04) ANAPHYLAXIS hydroxychloroquine [Plaquenil] Allergy (Intermediate, Verified 12/23/23 15:04) rash,facial swelling levofloxacin [From LEVAQUIN] Allergy (Intermediate, Verified 12/23/23 15:04) ITCHY RASH pregabalin [From LYRICA] Allergy (Intermediate, Verified 12/23/23 15:04) STOMACH UPSET, Swelling tramadol Allergy (Intermediate, Verified 12/23/23 15:04) abdominal pain azathioprine Adverse Reaction (Intermediate, Verified 12/23/23 15:04) Nausea and Vomiting insulin aspart [From Novolog U-100 Insulin aspart] Adverse Reaction (Intermediate, Verified 12/23/23 15:04) chills, shaking, sweating, weakness and tachycardia [id number] Reductase Inhibitor Adverse Reaction (Intermediate, Verified 12/23/23 15:04) transamimitis HPI HPI Asthma: Details: 58-year-old lady, former approximately 10 pack-year smoker, quit over 10 years prior referred for evaluation of biapical emphysema noted initially on cervical CT obtained for evaluation of bilateral arm tingling/pain.? After that patient had a dedicated CT chest that redemonstrated mild bilateral upper lobe predominant emphysema stable on follow-up CT.? Patient also complains of intermittent dyspnea on exertion, particularly when ascending stairs.? She denies cough, sputum production, wheezing, fevers or chills.? Patient does have a history of lung cancer in patient's paternal uncle.? 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 after the last office visit patient states that her symptoms have resolved and she did not require using Stiolto at all. [facility] Medical History Pulmonary emphysema Hypothyroidism Type 2 diabetes mellitus Osteoarthritis of hand, left Chronic constipation Hypoactive bowel sounds Hand numbness Autoimmune thyroiditis Abdominal pain Inflammatory arthritis Breast mass, right Lung cyst Bilateral hand numbness Neck pain Dyslipidemia Post-surgical hypothyroidism Diabetic polyneuropathy associated with type 2 diabetes mellitus snf (current) use of insulin Chronic idiopathic constipation Low vitamin D level Weight loss GERD (gastroesophageal reflux disease) Diabetes type 2, uncontrolled Fibromyalgia Insomnia Surgical History Hx of arthroscopy of left knee History of liver biopsy Hx of removal of cyst History of hysterectomy History of thyroidectomy, total History of esophagogastroduodenoscopy (EGD) Hx of colonoscopy (1998) Family History Father Status post liver transplant, biliary anastomotic size mismatch Brother Cardiac arrest Mother No problems noted. Maternal Aunt Breast cancer Brother Essential hypertension Substance abuse Pure hypercholesterolemia Other Mental health problem Social History Household Members: None Housing: House Alcohol intake: never Patient Tobacco Use Status: Former Tobacco user Tobacco use type: Cigarette Cigarettes Per Day: 7 Years Smoked: 6 e-Cigarette/Vaping Use: Never Used Second Hand Smoke Exposure: No Advance Directives Date on File: 07/15/20 service: No Current occupational status: disabled Current occupation: right hand Cognitive needs: No Hearing needs: No Vision needs: No Female Reproductive History Menstrual Age of Menarche: 12 Review of Systems Const Denies daytime sleepiness, Denies excessive sweating, Denies fatigue, Denies fever(s), Denies lethargy, Denies malaise, Denies night sweats, Denies snoring and Denies weight loss Eyes Denies blurry vision and Denies itchy eyes ENT Denies nasal congestion, Denies post nasal drip, Denies sinus pain, Denies sinus pressure and Denies other ( Thrush) Card Denies chest pain, Denies pedal edema, Denies dyspnea, Denies orthopnea and Denies paroxysmal nocturnal dyspnea Resp Denies cough, Denies hemoptysis, Denies excessive phlegm production, Denies dyspnea, Denies snoring and Denies wheezing GI Denies abdominal pain and Denies heartburn Musc Denies myalgias, Denies arthralgias and Denies joint swelling Skin/Breast Denies rash Neuro Denies memory loss and Denies seizure-like activity Psych Denies abnormal sleep pattern, Denies anxiety and Denies memory loss Endo Denies excessive sweating, Denies fatigue and Denies heat intolerance Leonides/Lymph Denies easy bruising Aller/Immun Denies itchy eyes, Denies seasonal rhinorrhea and Denies wheezing Physical Exam Vital Signs: Last Vital Signs Pulse 61 12/23/23 15:00 BP 102/62 12/23/23 15:00 Pulse Ox 98 12/23/23 15:00 Oxygen Delivery Method Room Air 12/23/23 15:00 BMI result Body Mass Index 28.1 Const General: no acute distress and alert Nutritional Appearance: not obese Orientation/consciousness: Other orientation findings ( oriented) HEENT Head: Yes atraumatic Eyes General: appearance normal, both eyes and all related structures Sclerae: sclerae normal EOM: EOMs intact bilaterally Neck Neck: Yes supple Lymphatic: no lymphadenopathy noted Resp Effort & Inspection: normal respiratory effort and no use of accessory muscles Auscultation: clear to auscultation bilaterally Cardio Rate: regular rate Rhythm: regular rhythm Heart sounds: no gallops, no murmurs and no rubs Skin General skin exam: other ( warm) Extrem General: No clubbing, No cyanosis and No edema Assessment & Plan Assessment & Plan (1) Dyspnea on exertion: Code(s): R06.00 - Dyspnea, unspecified Category: Medical Plan: Symptoms resolved. May have been related to vasoactive/vasoconstrictive hepatic protein synthesis imbalance with active autoimmune hepatitis. Coding Level of Care Code Est Pt Level 3 (70250) Diagnoses Dyspnea on exertion R06.00
== END 2023-12-23 15:11 | disposition home or self-care (01) ==
PROVIDERS: PCP Internal Medicine; Visit Provider Internal Medicine Pulmonary Disease
DX: R06.00 Dyspnea, unspecified (principal)
CPT/HCPCS: 99213

== ENCOUNTER → 2023-12-23 14:56 | Outpatient (BNVA) | payer MEDICARE, MEDICAID, SELFPAY | PROVIDERS: PCP Internal Medicine; Visit Provider Internal Medicine Pulmonary Disease | DX: R06.00 Dyspnea, unspecified (principal) | CPT/HCPCS: 99212 ==

== ENCOUNTER 2023-12-29 14:18 | Outpatient (AMB) | payer MEDICARE, MEDICAID, SELFPAY ==
--- NOTE | 2023-12-29 11:31 | A.OFFVIS_ITS ---
Vital Signs 12/29/23 14:19 Height 5 ft 7 in Weight 176 lb 5.917 oz BMI 27.6 BP 100/60 Blood Pressure Location Rt brachial Position Sitting Pulse 71 Pulse Source Pulse Oximeter Intake Visit Reasons: Type 2 DM/CONFIRMED Intake Note: New Patient presents today to established treatment for Type 2 Diabetes Mellitus: Most recent Eye Exam: 05/2023 Most recent Podiatry Exam: Does not see a Electric Meter Tester Most recent HbA1c: 9.2%, 10/18/2023 Random Glucose- 245 mg/dL, Today Lead Press Operator Required: No Accompanied by: Grand Child Allergies gadobutrol [From GADAVIST] Allergy (Severe, Verified 01/15/24 15:44) ANAPHYLAXIS hydroxychloroquine [Plaquenil] Allergy (Intermediate, Verified 01/15/24 15:44) rash,facial swelling levofloxacin [From LEVAQUIN] Allergy (Intermediate, Verified 01/15/24 15:44) ITCHY RASH pregabalin [From LYRICA] Allergy (Intermediate, Verified 01/15/24 15:44) STOMACH UPSET, Swelling tramadol Allergy (Intermediate, Verified 01/15/24 15:44) abdominal pain azathioprine Adverse Reaction (Intermediate, Verified 01/15/24 15:44) Nausea and Vomiting insulin aspart [From Novolog U-100 Insulin aspart] Adverse Reaction (Intermed iate, Verified 01/15/24 15:44) chills, shaking, sweating, weakness and tachycardia Qutllvm-[id number]-TdB Reductase Inhibitor Adverse Reaction (Intermediate, Verified 01/15/24 15:44) transamimitis HPI Comments Details: Patient is a 57-year-old female with DM type 2 diagnosed 2013 who presents for management of diabetes and hypothyroidism. She was last seen October 18, 2023 at which time Jardiance was started. Patient was last seen by Dr. López 06/15/22. 1). Diabetes - Past medical history: Diabetes type 2, hyperlipidemia hypothyroidism, osteopenia, fibromyalgia, rheumatoid arthritis Micro and macrovascular complications: neuropathy A1C has been running in the 9+% She did not tolerate Trulicity due to side effects, Metformin 1000mg bid caused GI upset Diabetes medications: Tresiba 170 unit if over 200. If less she is taking 80 units. Jardiance 10mg daily not taking + Neuropathy:Symptoms reported: + numbness, tingling, cramping in lower extremities. 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mology evaluation: earlier this year Other specialists: Rhuemotologist, GI 2) Hypothyroidism Reports total thyroidectomy over 20 years. Denies biotin use Medications: currently on LT4 250mcg since earlier this year in response to elevated TSH. Takes daily. Most recent TSH 10/31/23 10.32 Symptoms: Reports cold intolerance, weight loss, fatigue, dry skin. Denies diarrhea, constipation. Family History: mother has thyroid disease Patient is followed by GI for autoimmune hepatitis. [facility] screen Fibrosis-4 (Fib-4) Index for liver fibrosis (calculated on lab work done:10/2023 ) [ 1.18] points Advanced fibrosis excluded Approximate Fibrosis stage Medhat 0-1 *Use with caution in patients <35 or >65 years old, as the score has been shown to be less reliable in these patients. Prior Imaging abdominal ultrasound 2021 LIVER: The right hepatic lobe measures 18.4 cm in length. The liver contour is normal. Parenchymal echogenicity is normal. No focal hepatic lesion. There is no intrahepatic biliary duct dilatation seen. Right hepatic lobe enlargement. No focal lesion seen. 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-3 activity and stage 3-4 fibrosis biopsy 11/2021) [facility] Medical History Pulmonary emphysema Hypothyroidism Type 2 diabetes mellitus Osteoarthritis of hand, left Chronic constipation Hypoactive bowel sounds Hand numbness Autoimmune thyroiditis Abdominal pain Inflammatory arthritis Breast mass, right Lung cyst Bilateral hand numbness Neck pain Dyslipidemia Post-surgical hypothyroidism Diabetic polyneuropathy associated with type 2 diabetes mellitus intermediate frame tender (current) use of insulin Chronic idiopathic constipation Low vitamin D level Weight loss GERD (gastroesophageal reflux disease) Diabetes type 2, uncontrolled Fibromyalgia Insomnia Surgical History (Updated 01/25/24 @ 00:03 by Ronal Rodrigez) Hx of arthroscopy of left knee History of liver biopsy Hx of removal of cyst History of hysterectomy History of thyroidectomy, total History of esophagogastroduodenoscopy (EGD) Hx of colonoscopy (1998) Family History Father Status post liver transplant, biliary anastomotic size mismatch Brother Cardiac arrest Mother No problems noted. Maternal Aunt Breast cancer Brother Essential hypertension Substance abuse Pure hypercholesterolemia Other Mental health problem Social History Household Members: None Housing: House Alcohol intake: never Patient Tobacco Use Status: Former Tobacco user Tobacco use type: Cigarette Cigarettes Per Day: 7 Years Smoked: 6 e-Cigarette/Vaping Use: Never Used Second Hand Smoke Exposure: No Advance Directives Date on File: 07/15/20 service: No Current occupational status: disabled Current occupation: right hand Cognitive needs: No Hearing needs: No Vision needs: No Female Reproductive History Menstrual Age of Menarche: 12 Physical Exam Vital Signs: Last Vital Signs Pulse 71 12/29/23 14:19 BP 100/60 12/29/23 14:19 BMI result Body Mass Index 27.6 Const Other: Absence of Cushingoid features. Absence of acromegalic features. Neck exam reveals nl size thyroid about 15 gms. No thyroid nodules palpable. No carotid bruits present. Lungs CTA. Heart S1 S2, Reg R/R. No M/R G. Skin exam reveals absence of vitiligo or acanthosis nigricans. No edema Results Reviewed Results Reviewed: Laboratory Last Values Glucose (Clinic) 245 mg/dL (60-115) H 12/29/23 14:26 Laboratory Tests 10/31/23 10/31/23 13:41 13:47 Plt Count 224 Potassium 3.9 Creatinine 0.76 Estimated GFR > 60 AST 27 ALT 35 H Triglycerides 113 Cholesterol 174 HDL Cholesterol 45 TSH 10.32 H Urine Microalbumin 8.0 Microalb/Creat Ratio 6.5 Assessment & Plan Assessment & Plan (1) Type 2 diabetes mellitus: Code(s): E11.9 - Type 2 diabetes mellitus without complications Category: Medical Qualifiers: Diabetes mellitus longterm insulin use: with long term care administrator use Diabetes mellitus complication status: with hyperglycemia Qualified Code(s): E11.65 - Type 2 diabetes mellitus with hyperglycemia; Z79.4 - [facility] (current) use of insulin Plan: TYpe 2 diabetic. Continue insulin and add Mounjaro. (2) Hypothyroidism: Code(s): E03.9 - Hypothyroidism, unspecified Category: Medical Plan: Continue current dose of levothyroxine and check TSH free T4 Orders: Orders Free T4 (Free Thyroxine) 2 Weeks E11.65 - Type 2 diabetes mellitus with hyperglycemia, Z79.4 - intermediate frame tender (current) use of insulin Thyroid Stimulating Hormone 2 Weeks E11.65 - Type 2 diabetes mellitus with hyperglycemia, Z79.4 - [facility] (current) use of insulin B Type Natriuretic Peptide 2 Weeks E11.65 - Type 2 diabetes mellitus with hyperglycemia, Z79.4 - [facility] (current) use of insulin Patient Instructions: The patient was counseled to achieve a target A1C of 7% (154 avg). Fasting blood sugars should be 90-130 in the morning and less than 180 two hours after meals. Reviewed the relationship between poor diabetic control and the development of complications. The patient was counseled to always carry a source of sugar and on the rule of 15's: Take 3 glucose tablets and repeat again in 15 minutes if blood sugar is not in normal range. Continue to repeat every 15 minutes until blood sugar is normal. Coding Level of Care Code Est Pt Level 4 (09408) Diagnoses Type 2 diabetes mellitus with hyperglycemia, with long-term current use of insulin E11.65; Z79.4 Diabetes mellitus longterm insulin use: with longterm use Diabetes mellitus complication status: with hyperglycemia Hypothyroidism E03.9 Time Spent (min) 35 Comment Time spent reviewing labs/provider notes, face to face, chart doc
[2023-12-29 14:19] VITALS: BP 100/60; PULSE 71; BMI 27.6
[2023-12-29 14:30] LABS: Glucose, Whole Blood 245 mg/dL (60-115)
== END 2023-12-29 14:49 | disposition home or self-care (01) ==
PROVIDERS: PCP Internal Medicine; Visit Provider Nurse Practitioner Adult Health
DX: E11.65 Type 2 diabetes mellitus with hyperglycemia (principal); Z79.4 Long term (current) use of insulin; E03.9 Hypothyroidism, unspecified
CPT/HCPCS: 99214

== ENCOUNTER → 2023-12-29 14:18 | Outpatient (BNVA) | payer MEDICARE, MEDICAID, SELFPAY | PROVIDERS: PCP Internal Medicine; Visit Provider Nurse Practitioner Adult Health | DX: E11.9 Type 2 diabetes mellitus without complications (principal); E03.9 Hypothyroidism, unspecified; E78.5 Hyperlipidemia, unspecified | CPT/HCPCS: 82947; 99212 ==

== ENCOUNTER 2024-01-15 15:40 | Observation (INO) | payer MEDICARE, MEDICAID, SELFPAY ==
--- NOTE | ~2024-01-15 | CT_ITS ---
EXAMINATION: CT ABDOMEN AND PELVIS WITHOUT CONTRAST CLINICAL INFORMATION: Bilateral lower quadrant pain COMPARISON: Ultrasound abdomen 11/15/2022, CT abdomen pelvis 11/11/2021 TECHNIQUE: Multidetector volumetric imaging was performed from the superior aspect of the liver through the pubic symphysis. Sagittal and coronal reformatted images were obtained on the technologist's workstation. This CT examination was performed using dose optimization techniques as appropriate, variously including the following: *Automated exposure control *Adjustment of mA and/or kV according to patient size (this includes techniques or standardized protocols for targeted exams where dose is matched to indication/reason for exam; i.e. extremities or head) *Use of iterative reconstruction technique DLP: 519 mGy-cm FINDINGS: LUNG BASES: The visualized lung bases are unremarkable. LIVER, GALLBLADDER, AND BILIARY TREE: The liver is enlarged similar prior measuring 19.1 cm in cephalocaudad dimension. Attenuation is normal. No focal hepatic lesion or biliary ductal dilatation is present. Status post cholecystectomy. PANCREAS: Unremarkable. SPLEEN: The spleen is again noted to be enlarged measuring 14 cm. ADRENAL GLANDS: Unremarkable. KIDNEYS AND URETERS: The kidneys are normal in size, shape, and attenuation. No hydronephrosis, hydroureter, or calculi seen. No perinephric stranding. BLADDER: Unremarkable. GASTROINTESTINAL TRACT: The small and large bowel are unremarkable. The appendix is mildly dilated on the current exam measuring 9 mm (see pinto images). It is not filled with air as it was on the prior study. No periappendiceal inflammatory changes are seen or fluid collections. ABDOMINAL WALL: No significant hernia is appreciated. There is mild diastases of the rectus muscles. LYMPH NODES: No retroperitoneal lymphadenopathy. VASCULAR: Unremarkable. PELVIC VISCERA: The uterus is not seen. An abnormal adnexal mass is not detected. No free intraperitoneal fluid is present. OSSEOUS STRUCTURES: Unremarkable. CT/CT abdomen pelvis wo IV con IMPRESSION: 1. The appendix is mildly dilated on the current exam measuring 9 mm. It is not filled with air as it was on the prior study. No periappendiceal inflammatory changes are seen. Findings are equivocal for early acute appendicitis. Close clinical follow-up recommended. 2. Incidental note made of hepatosplenomegaly, cholecystectomy and hysterectomy. Fleischner guidelines were followed. Electronically signed by: Ever Andrade MD 01/15/2024 08:45 PM EDT RP
[2024-01-15 15:42] VITALS: BP 131/72; PULSE 77; RESP 18; TEMP 36.1; O2SAT 99; BMI 26.6
--- NOTE | 2024-01-15 15:42 | ED.GENADULT ---
HPI - General Adult General Chief complaint: Weakness Stated complaint: Weakness/Vomiting Time Seen by Provider: 01/15/24 18:15 Source: patient Mode of arrival: ambulatory Limitations: no limitations History of Present Illness ED Provider: Dr. Elsie Chaves HPI narrative: patient comes to the emergency room complaining of vomiting, fatigue, low energy, denies vomiting or diarrhea. Patient believes that she has been having constipation, for couple of days she has been using enemas but has not being able to move her bowels. Patient states that she feels a lot of discomfort in the suprapubic area and the right lower quadrant. Related Data Home Medications ?Medication ?Instructions ?Recorded ?Confirmed bisacodyl 5 mg tablet,delayed 5 mg PO BEDTIME 03/04/22 11/09/23 release ropinirole 0.25 mg tablet 0.25 mg PO DAILY 03/14/23 11/09/23 Previous Rx's ?Medication ?Instructions ?Recorded blood-glucose meter (FreeStyle #1 ea 05/13/21 Lite Meter kit) loratadine 10 mg capsule 10 mg PO DAILY 90 days #90 caps 06/22/21 tiotropium 2.5 mcg-olodaterol 2.5 2 puff inhalation DAILY 30 days #4 03/05/22 mcg/actuation mist for inhalation grams (Stiolto Respimat) flash glucose scanning reader #1 ea 06/15/22 (FreeStyle Liza 2 [place]) flash glucose sensor (FreeStyle #2 ea 06/15/22 Liza 2 Sensor kit) albuterol sulfate 90 mcg/actuation 2 puff inhalation Q6H PRN 10/29/22 aerosol inhaler bronchospasm 30 days #6.7 grams omeprazole 20 mg capsule,delayed 40 mg (2 x 20 mg) PO DAILY 90 days 02/14/23 release #180 caps lancets 28 gauge (FreeStyle #100 ea 02/16/23 Lancets) bed rails #1 ea 02/22/23 underpads (Bed Underpads) #100 ea 03/15/23 mercaptopurine 50 mg tablet 50 mg PO DAILY #90 tabs 06/13/23 peg 3350-electrolytes 236 240 ml PO Q10M colonoscopy #6,000 06/13/23 gram-22.74 gram-6.74 gram-5.86 mL gram solution (Deb) blood sugar diagnostic (FreeStyle #100 ea 06/29/23 Lite Strips) alendronate 70 mg tablet 70 mg PO QWEEK 90 days #13 tabs 08/16/23 folic acid 1 mg tablet 1 mg PO DAILY #30 tabs 08/16/23 ondansetron HCl 8 mg tablet 8 mg PO DAILY PRN nausea and 08/16/23 vomiting 30 days #30 tabs ropinirole 0.25 mg tablet 0.25 mg PO BEDTIME 30 days #30 tabs 08/16/23 meloxicam 15 mg tablet 15 mg PO DAILY PRN pain #30 tabs 08/18/23 insulin degludec 200 unit/mL (3 175 unit (0.875 mL) subcut BEDTIME 10/29/23 mL) subcutaneous pen (Tresiba 30 days #26.25 mL FlexTouch U-200 insulin) semaglutide 0.25 mg or 0.5 mg (2 0.25 mg (0.368 mL) subcut QWEEK 4 11/01/23 mg/3 mL) subcutaneous pen injector weeks #1.472 mL (Ozempic) bisacodyl 5 mg tablet,delayed 20 mg (4 x 5 mg) PO ONCE 1 day #4 11/08/23 release (Dulcolax (bisacodyl)) tabs cholecalciferol (vitamin D3) 50 50 mcg PO DAILY 90 days #90 caps 11/15/23 mcg (2,000 unit) capsule empagliflozin 10 mg tablet 10 mg PO DAILY 30 days #30 tabs 11/15/23 (Jardiance) levothyroxine 200 mcg tablet 200 mcg PO DAILY 90 days #90 tabs 11/15/23 levothyroxine 50 mcg tablet 50 mcg PO DAILY 90 days #90 tabs 11/15/23 rosuvastatin 10 mg tablet 10 mg PO DAILY 90 days #90 tabs 11/15/23 ergocalciferol (vitamin D2) 1,250 1,250 mcg PO QWEEK 90 days #13 caps 01/12/24 mcg (50,000 unit) capsule pen needle, diabetic 32 gauge x #150 ea 01/12/24 (BD Ultra-Fine Alivia Pen Needle) ibuprofen 600 mg tablet 600 mg PO TID 7 days #21 tabs 01/14/24 oxycodone 10 mg tablet 10 mg PO Q8H PRN pain 30 days #90 01/14/24 tabs zolpidem 10 mg tablet 10 mg PO BEDTIME insomnia 30 days 01/14/24 #30 tabs Allergies Allergy/AdvReac Type Severity Reaction Status Date / Time gadobutrol [From GADAVIST] Allergy Severe ANAPHYLAXIS Verified 01/15/24 15:44 hydroxychloroquine Allergy Intermediate rash,facial Verified 01/15/24 15:44 [Plaquenil] swelling levofloxacin [From LEVAQUIN] Allergy Intermediate ITCHY RASH Verified 01/15/24 15:44 pregabalin [From LYRICA] Allergy Intermediate STOMACH Verified 01/15/24 15:44 UPSET, Swelling tramadol Allergy Intermediate abdominal Verified 01/15/24 15:44 pain azathioprine AdvReac Intermediate Nausea and Verified 01/15/24 15:44 Vomiting insulin aspart AdvReac Intermediate chills, Verified 01/15/24 15:44 [From Novolog U-100 Insulin shaking, aspart] sweating, weakness and tachycardia [id number] Reductase AdvReac Intermediate transamimit Verified 01/15/24 15:44 Inhibitor is Review of Systems Review of Systems: Constitutional : No Weight loss, No Fever, No Chills, No Night Sweats, No Fatigue, No Malaise ENT/Mouth : No Hearing loss, No Ear Pain, No Nasal Congestion, No Sinus Pain, No Hoarseness, No sore throat, No Rhinorrhea, No Swallowing Difficulty Eyes: No Eye Pain, No Swelling, No Redness, No Foreign Body, No Discharge, No Vision Changes Cardiovascular : No Chest Pain, No SOB, No Dyspnea on Exertion, No Orthopnea, No Edema, No Palpitations Respiratory : No Cough, No Sputum, No Wheezing, No Smoke Exposure, No Dyspnea Gastrointestinal : No Nausea, No Vomiting, No Diarrhea, No Constipation, Complaining of periumbilical and right lower quadrant pain Genitourinary : no irregular bleeding, No Dysuria, No Urinary Frequency, No Hematuria, No Urinary Incontinence, No Urgency, No Flank Pain, No Urinary Flow Changes, No Hesitancy Musculoskeletal : No joint pain, No Myalgias, No Joint Swelling Skin : No Skin Lesions, No rash Neuro : No Weakness, No Numbness, No Paresthesias, No Loss of Consciousness, No Dizziness, No Headache Psych : No Anxiety/Panic, No Depression, No SI/HI/AH/VH, No Social Issues, Heme/Lymph: No Bruising, No Bleeding,No Lymphadenopathy Endocrine : No Polyuria, No Polydipsia, No Temperature Intolerance [facility] Past Medical History Medical History Pulmonary emphysema Hypothyroidism Type 2 diabetes mellitus Osteoarthritis of hand, left Chronic constipation Hypoactive bowel sounds Hand numbness Autoimmune thyroiditis Abdominal pain Inflammatory arthritis Breast mass, right Lung cyst Bilateral hand numbness Neck pain Dyslipidemia Post-surgical hypothyroidism Diabetic polyneuropathy associated with type 2 diabetes mellitus 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 Maternal Aunt Breast cancer Brother Essential hypertension Substance abuse Pure hypercholesterolemia Other Mental health problem Social History Social History Household Members: None Housing: House Alcohol intake: never Patient Tobacco Use Status: Former Tobacco user Tobacco use type: Cigarette Cigarettes Per Day: 7 Years Smoked: 6 Smoked in Last 30 Days: No e-Cigarette/Vaping Use: Never Used Second Hand Smoke Exposure: No Use of substances other than those prescribed or required for medical reasons: No Advance Directives: Yes Advance Directives on File: Yes Advance Directives Date on File: 07/15/20 Patient : No service: No Current occupational status: disabled Current occupation: right hand Cognitive needs: No Hearing needs: No Vision needs: No Physical Exam ED Vital Signs: Vital Signs - 24 hr 01/15/24 15:42 01/15/24 17:25 01/15/24 20:07 Temperature 97.0 F 98.1 F 98.9 F Pulse Rate 77 60 59 Respiratory Rate 18 18 16 Blood Pressure 131/72 112/67 111/58 L Pulse Oximetry 99 100 100 Oxygen Delivery Method Room Air Room Air Room Air BMI result Body Mass Index 26.6 Const Other: Appearance: Alert. Oriented X3. No acute distress. Eyes: Pupils equal, round and reactive to light. ENT: Pharynx normal. Neck: Normal inspection. Neck supple. No lymph nodes noted. No crepitus CVS: Normal heart rate and rhythm. Pulses normal. Normal S1 and S2 Respiratory: No respiratory distress. Breath sounds normal. No Wheezing. No rales Abdomen: Soft and nontender. pain to palpation over the suprapubic and right lower quadrant, mild rebound, no guarding Skin: Skin warm and dry. Normal skin color. Normal skin turgor. Extremities: No lower extremity edema. No Lacerations. No Rash Neuro: Oriented X 3. No motor deficit. No sensory deficit. Moving all extremities. No slurred speech. CN 2 through 12 grossly intact Psych: calm, cooperative, anxious Course Course Course Narrative: This is a Rapid Medical Examination (RME) performed by Andre Rhoades PA-C in triage. Full HPI, ROS, assessment and treatment plan per primary provider in the Main ED. 58 yo female hx of DM, fibromyalgia, GERD, RA here for eval of generalized weakness, decreased energy levels, lower abdominal pain x5 days. admits to 1 episode of vomiting 2 days ago. symptoms began after giving herself an enema at home for 3 wks of constipation. had BM that day. no tick or insect bites. no melena, BRBPR, hematemesis. + patient appears pale. Plan: labs, UA, viral swabs, ekg Medications Administered Discontinued Medications Generic Name Dose Route Start Last Admin Trade Name Margaret PRN Reason Stop Dose Admin Acetaminophen 650 mg 01/15/24 20:01 01/15/24 20:05 Acetaminophen 325 Mg Tablet PO 01/15/24 20:02 650 mg ONCE ONE Administration Ondansetron HCl 4 mg 01/15/24 21:23 01/15/24 21:32 Ondansetron Hcl 4 Mg/2 Ml Vial IVPUSH 01/15/24 21:24 4 mg ONCE ONE Administration Medical Decision Making Medical Decision Making [facility] Narrative: my interpretation of labs, normal hematology, normal chemistry, T bili 1.7, other LFTs within normal limits, urinalysis negative for UTI, serology negative for influenza COVID and RSV - my interpretation of CT scan, no obvious abnormalities. However, the CT scan shows 9 mm appendix, possible early appendicitis. - Patient's white blood cell count is normal, the appendix is mildly dilated, not feel with air, no periappendiceal inflammation changes seen. However, patient still complaining of tenderness to palpation over the right lower quadrant and suprapubic area. Patient very anxious as well. I discussed the above-mentioned with Dr. Bustos from general surgery, patient being admitted for observation. - Patient already received IV fluids, Zofran, morphine, Zosyn Admission/Observation Consideration of admission/observation: Escalation of care including admission/observation considered Consult Healthcare Provider Management of the patient was discussed with: Social Sciences Lecturer Lab Data MDM Lab Attestation statement: I reviewed the patient's lab results. 01/15/24 16:00 01/15/24 15:59 Labs: Lab Results 01/15/24 01/15/24 01/15/24 Range/Units 15:59 16:00 20:46 WBC 5.5 (4.8-10.8) X10*3/uL RBC 4.11 L (4.20-5.50) X10*6/uL Hgb 12.4 (12.0-16.0) g/dl Hct 35.7 L (37.0-47.0) % MCV 86.9 (80.0-98.0) fL MCH 30.2 (27.0-33.0) pg MCHC 34.7 (31.0-35.0) g/dl RDW 12.7 (11.0-16.0) % Plt Count 270 (160-400) X10*3/uL MPV 8.8 L (9.4-12.3) fL Immature Gran % (Auto) 0.4 (0.0-0.4) % Neut % (Auto) 66.5 (45-73) % Lymph % (Auto) 25.9 (20-40) % [place] % (Auto) 6.6 (2-11) % Eos % (Auto) 0.2 (0-4) % Baso % (Auto) 0.4 (0-2) % Lymph # (Auto) 1.4 (1.2-4.9) X10*3/uL [place] # (Auto) 0.4 (0.1-1.2) X10*3/uL Eos # (Auto) 0.0 (0.0-0.4) X10*3/uL Baso # (Auto) 0.0 (0.0-0.2) X10*3/uL Abs Immat Gran (auto) 0.02 (0.00-0.03) X10*3/uL Absolute Neuts (auto) 3.6 (2.0-8.3) x10*3/uL Absolute Nucleated RBC 0.000 (0.0-0.012) X10*3/uL Nucleated RBC % (auto) 0.0 (0.0-0.2) /100WBC Sodium 137 (135-145) mmol/L Potassium 3.8 (3.3-5.1) mmol/L Chloride 105 (96-108) mmol/L Carbon Dioxide 23 (22-29) mmol/L Anion Gap 13 (12-20) BUN 23 H (9-16) mg/dL Creatinine 0.85 (0.5-1.4) mg/dL Estim Creat Clear Calc 77.1 Estimated GFR > 60 Random Glucose 188 H (60-115) mg/dL Calcium 10.5 H D (8.4-10.2) mg/dL Magnesium 2.1 (1.6-2.6) mg/dL Total Bilirubin 1.7 H (0.0-1.0) mg/dL AST 14 (5-31) U/L ALT 15 (0-31) U/L Alkaline Phosphatase 96 (39-117) U/L Total Protein 9.5 H (6.5-8.0) g/dL Albumin 4.5 (3.5-5.0) g/dL Lipase 9 (8-78) U/L Urine Color Dark Yellow Urine Appearance Clear Urine pH 5.5 (5.0-9.0) Ur Specific [place] >= 1.030 H (1.005-1.025) Urine Protein 30 (1+) H (Neg-Trace) mg/dL Urine Glucose (UA) >=1000 H (Negative) mg/dL Urine Ketones 40 (Negative) mg/dL Urine Blood Negative (Negative) Urine Nitrite Negative (Negative) Ur Leukocyte Esterase Negative (Negative) Urine RBC 0-2 (0-2) /HPF Urine WBC 0-5 (0-5) /HPF Ur Squamous Epith Cells 0-2 (0-2) /HPF Urine Bacteria None Seen (None Seen) Hyaline Casts 0-2 (0-2) /LPF Influenza Type A (PCR) NEGATIVE (Negative) Influenza Type B (PCR) NEGATIVE (Negative) RSV RNA Qual (PCR) NEGATIVE (Negative) SARS-CoV-2 RNA (RT-PCR) NEGATIVE (Negative) Independent Interpretation I performed an independent interpretation of an: CT Scan Radiology Impression Discussion of test interpretation with radiology: I have reviewed the radiologist's reading. Radiologist Impression: 1. The appendix is mildly dilated on the current exam measuring 9 mm. It is not filled with air as it was on the prior study. No periappendiceal inflammatory changes are seen. Findings are equivocal for early acute appendicitis. Close clinical follow-up recommended. 2. Incidental note made of hepatosplenomegaly, cholecystectomy and hysterectomy. Critical Care Time Critical Care Time Critical Care Time: Yes Total Critical Care Time: 60 Attestation: I have personally provided critical care time. Time includes review of lab data, radiology results, discussion with consultants, and monitoring for potential decompensation. Intervention performed as documented. Discharge Plan Discharge Clinical Impression: Acute appendicitis Patient Disposition: Admitted as Observation Prescriptions: No Action loratadine 10 mg capsule 10 mg PO DAILY 90 Days Qty: 90 3RF albuterol sulfate 90 mcg/actuation HFA aerosol inhaler 2 puff inhalation Q6H PRN (Reason: bronchospasm) 30 Days Qty: 6.7 2RF (DME) lancets [FreeStyle Lancets] 28 gauge misc See Rx Instructions .Route Qty: 100 5RF Rx Instructions: Use 1 lancet three times a day (DME) underpads [Bed Underpads] Pad See Rx Instructions .Route Qty: 100 11RF Rx Instructions: As directed mercaptopurine 50 mg tablet 50 mg PO DAILY Qty: 90 2RF (DME) FreeStyle Lite Strips Strip See Rx Instructions .Route Qty: 100 11RF Rx Instructions: As directed 3 times a day folic acid 1 mg tablet 1 mg PO DAILY Qty: 30 1RF ondansetron HCl 8 mg tablet 8 mg PO DAILY PRN (Reason: nausea and vomiting) 30 Days Qty: 30 0RF ropinirole 0.25 mg tablet 0.25 mg PO BEDTIME 30 Days Qty: 30 0RF Rx Instructions: administer 1-3 hours before bedtime alendronate 70 mg tablet 70 mg PO QWEEK 90 Days Qty: 13 1RF insulin degludec [Tresiba FlexTouch U-200] 200 unit/mL (3 mL) insulin pen 175 unit subcut BEDTIME 30 Days Qty: 26.25 2RF Rx Instructions: took 80 units tresiba lpm 07/07/23 bisacodyl [Dulcolax (bisacodyl)] 5 mg tablet,delayed release (DR/EC) 20 mg PO ONCE 1 Days Qty: 4 0RF Rx Instructions: take at noon the day before colonoscopy Jardiance 10 mg tablet 10 mg PO DAILY 30 Days Qty: 30 4RF cholecalciferol (vitamin D3) 50 mcg (2,000 unit) capsule 50 mcg PO DAILY 90 Days Qty: 90 3RF levothyroxine 200 mcg tablet 200 mcg PO DAILY 90 Days Qty: 90 1RF levothyroxine 50 mcg tablet 50 mcg PO DAILY 90 Days Qty: 90 0RF rosuvastatin 10 mg tablet 10 mg PO DAILY 90 Days Qty: 90 2RF (DME) pen needle, diabetic [BD Ultra-Fine Alivia Pen Needle] 32 gauge x 5/32 needle See Rx Instructions .ROUTE .MEDSUPPLY Qty: 150 11RF Rx Instructions: As directed 4x/day ergocalciferol (vitamin D2) 1,250 mcg (50,000 unit) capsule 1,250 mcg PO QWEEK 90 Days Qty: 13 0RF ibuprofen 600 mg tablet 600 mg PO TID 7 Days Qty: 21 0RF zolpidem 10 mg tablet 10 mg PO BEDTIME 30 Days Qty: 30 0RF oxycodone 10 mg tablet 10 mg PO Q8H PRN (Reason: pain) 30 Days Qty: 90 0RF Rx Instructions: Partial Fill upon patient request. bisacodyl 5 mg tablet,delayed release (DR/EC) 5 mg PO BEDTIME omeprazole 20 mg capsule,delayed release(DR/EC) 40 mg PO DAILY 90 Days Qty: 180 1RF (DME) bed rails See Rx Instructions .Route .MEDSUPPLY Qty: 1 0RF Rx Instructions: As directed Ozempic 0.25 mg or 0.5 mg (2 mg/3 mL) pen injector 0.25 mg subcut QWEEK 28 Days Qty: 1.472 0RF Rx Instructions: for 4 weeks (DME) blood-glucose meter [FreeStyle Lite Meter] Kit See Rx Instructions .Route Qty: 1 0RF Rx Instructions: As directed (DME) FreeStyle Liza 2 Sensor Kit See Rx Instructions .Route Qty: 2 5RF Rx Instructions: As directed -change every 14 days (DME) FreeStyle Liza 2 [place] Misc See Rx Instructions .Route Qty: 1 2RF Rx Instructions: As directed Stiolto Respimat 2.5-2.5 mcg/actuation mist 2 puff inhalation DAILY 30 Days Qty: 4 6RF peg 3350-electrolytes [Golytely] 236-22.74-6.74 -5.86 gram recon soln 240 ml PO Q10M Qty: 6000 0RF Rx Instructions: as per split prep instructions, until fecal effluent is clear ropinirole 0.25 mg tablet 0.25 mg PO DAILY meloxicam 15 mg tablet 15 mg PO DAILY PRN (Reason: pain) Qty: 30 3RF Print Language: Other
--- NOTE | 2024-01-15 15:44 | ECG_ITS ---
Test Reason : WEAKNESS Blood Pressure : / mmHG Vent. Rate : 069 BPM Atrial Rate : 069 BPM P-R Int : 144 ms QRS Dur : 084 ms QT Int : 404 ms P-R-T Axes : 047 022 030 degrees QTc Int : 432 ms Normal sinus rhythm Normal ECG When compared with ECG of 23-MAR-2020 14:38, No significant change was found Referred By: Amy Rhoades Electronically Signed By:Lenny Carrillo
[2024-01-15 16:10] LABS: MANUAL DIFF FLAG NO
[2024-01-15 16:13] LABS: Basophils Percent Auto 0.4 % (0-2); Eosinophils Percent Auto 0.2 % (0-4); Hematocrit 35.7 % (37.0-47.0); Hemoglobin 12.4 g/dl (12.0-16.0); Imm Gran Abs Auto 0.02 X10*3/uL (0.00-0.03); Imm Gran Pct Auto 0.4 % (0.0-0.4); Lymphocytes Absolute Auto 1.4 X10*3/uL (1.2-4.9); Lymphocytes Percent Auto 25.9 % (20-40); Mean Corpuscular HGB Conc 34.7 g/dl (31.0-35.0); Mean Corpuscular Hemoglobin 30.2 pg (27.0-33.0); Mean Corpuscular Volume 86.9 fL (80.0-98.0); Mean Platelet Volume 8.8 fL (9.4-12.3); Monocytes Absolute Auto 0.4 X10*3/uL (0.1-1.2); Monocytes Percent Auto 6.6 % (2-11); Neutrophils Absolute Auto 3.6 x10*3/uL (2.0-8.3); Neutrophils Percent Auto 66.5 % (45-73); Platelet Count 270 X10*3/uL (160-400); Red Blood Count 4.11 X10*6/uL (4.20-5.50); Red Cell Distribution Width 12.7 % (11.0-16.0); White Blood Count 5.5 X10*3/uL (4.8-10.8)
--- NOTE | 2024-01-15 16:18 | PC.NURSE ---
Pt comes from home for abdominal pain starting Tuesday. Pt states she gave herself a fleet enema, constipated x3 weeks, and started to have the abd pain/nausea after. Endorsing sharp/cramping, abdominal pain in the middle, tenderness on palpation. Unable to keep food/fluids down, has not been passing gas. A/ox4, respirations even and unlabored, no increased wob/sob noted, s1 and s2 heard, abdomen tender on palpation. Labs obtained and sent to lab. 20g IV placed in left AC. Pt resting in bed quietly, call bruno within reach, all needs met at this time.
[2024-01-15 16:42] LABS: Alanine Aminotransferase 15 U/L (0-31); Albumin Level 4.5 g/dL (3.5-5.0); Alkaline Phosphatase 96 U/L (39-117); Anion Gap 13 (12-20); Aspartate Amino Transferase 14 U/L (5-31); Bilirubin Total 1.7 mg/dL (0.0-1.0); Blood Urea Nitrogen 23 mg/dL (9-16); Calcium 10.5 mg/dL (8.4-10.2); Carbon Dioxide 23 mmol/L (22-29); Chloride 105 mmol/L (96-108); Creatinine Clr Calc Pharmacy 77.1; Estimated Glomerular Filt Rate > 60; Glucose Random 188 mg/dL (60-115); Lipase 9 U/L (8-78); Magnesium 2.1 mg/dL (1.6-2.6); Potassium 3.8 mmol/L (3.3-5.1); Sodium 137 mmol/L (135-145); Total Protein 9.5 g/dL (6.5-8.0)
[2024-01-15 17:09] LABS: Influenza A PCR NEGATIVE (Negative); Influenza B PCR NEGATIVE (Negative); Resp Syncy Virus RNA Qual PCR NEGATIVE (Negative); SARS COV2 PCR INHOUSE NEGATIVE (Negative)
[2024-01-15 17:25] VITALS: BP 112/67; PULSE 60; RESP 18; TEMP 36.7; O2SAT 100
[2024-01-15] MEDS: Acetaminophen 325 MG TABLET 650 MG PO (20:05)
[2024-01-15 20:07] VITALS: BP 111/58; PULSE 59; RESP 16; TEMP 37.2; O2SAT 100
--- NOTE | 2024-01-15 20:09 | PC.NURSE ---
Patient awake and alert. skin pwd, resp even and non labored. speaking in full, clear sentences. medicated per order for 7/10 headache and abdominal pain. awaiting results of CT
--- NOTE | 2024-01-15 20:48 | PC.NURSE ---
patient ambulated to/from bathroom with slow, steady gait. urine sample obtained and sent to lab
[2024-01-15 20:53] LABS: Appearance Urine Clear; Color Urine Dark Yellow; Glucose Urine UA >=1000 mg/dL (Negative); Leukocyte Esterase Urine Negative (Negative); Nitrite Urine Negative (Negative); PH 5.5 (5.0-9.0); Specific Gravity - Urine >= 1.030 (1.005-1.025); UMIC TRIGGER UACC YES; Urine Blood Negative (Negative); Urine Ketones 40 mg/dL (Negative); Urine Protein 30 (1+) mg/dL (Neg-Trace)
[2024-01-15 20:58] LABS: Bacteria Urine None Seen (None Seen); Hyaline Casts Urine 0-2 /LPF (0-2); RBC Urine 0-2 /HPF (0-2); Squamous Epithelial Cell Urine 0-2 /HPF (0-2); WBC Urine 0-5 /HPF (0-5)
[2024-01-15] MEDS: ondansetron HCL 4 MG/2 ML VIAL IVPUSH (21:32)
[2024-01-15] MEDS: Piperacillin Sodium/Tazobactam 3.375 GM in 0.9 % Sodium Chloride 50 ML IV (22:01)
--- NOTE | 2024-01-15 22:03 | PC.NURSE ---
no blood cultures per Dr. Chaves
[2024-01-15 22:41] VITALS: BP 111/51; PULSE 61; RESP 16; TEMP 36.9; O2SAT 98
[2024-01-15 22:42] LABS: Glucose, Whole Blood 111 mg/dL (60-115)
--- NOTE | 2024-01-15 22:43 | PC.NURSE ---
patient awake and alert. skin pwd, resp even and non labored. speaking in full, clear sentences. reports 5/10 right sided abdominal pain, states she does not yet want the morphine ordered. patient aware of plan care for admission
[2024-01-15] MEDS: 0.9 % Sodium Chloride Flush 3 ML SYRINGE IVFLUSH (23:34)
[2024-01-16] VITALS: BP 142/66; PULSE 62; RESP 16; TEMP 36.2; O2SAT 99
[2024-01-16] MEDS: Zolpidem Tartrate 5 MG TABLET PO (01:06)
[2024-01-16] MEDS: Morphine Sulfate 4 MG/ML CARTRIDGE IVPUSH (02:48)
[2024-01-16 06:27] LABS: Hematocrit 36.3 % (37.0-47.0); Hemoglobin 12.2 g/dl (12.0-16.0); Mean Corpuscular HGB Conc 33.6 g/dl (31.0-35.0); Mean Corpuscular Hemoglobin 29.8 pg (27.0-33.0); Mean Corpuscular Volume 88.8 fL (80.0-98.0); Mean Platelet Volume 8.9 fL (9.4-12.3); Platelet Count 240 X10*3/uL (160-400); Red Blood Count 4.09 X10*6/uL (4.20-5.50); Red Cell Distribution Width 12.8 % (11.0-16.0); White Blood Count 4.7 X10*3/uL (4.8-10.8)
[2024-01-16] MEDS: Famotidine 20 MG TABLET PO ×2 (07:35→21:05)
[2024-01-16] MEDS: 0.9 % Sodium Chloride Flush 3 ML SYRINGE IVFLUSH ×2 (07:35→21:06)
[2024-01-16 07:50] VITALS: BP 119/69; PULSE 75; RESP 16; TEMP 36.7; O2SAT 98
--- NOTE | 2024-01-16 07:59 | PHA.MEDREC ---
Pharmacy Consult ? Medication Reconciliation Pharmacy has completed/reviewed the medication reconciliation. Patient confirmed to be on ergocalciferol however claims are from [facility], she also confirms to be on ozempic, and alendronate. She is taking all three of the above on wednesdays. Regarding the tresiba, it is prescribed as 175 units BID. She did tell me however that if her glucose is above >200mg/dL she will take the glucose # that she is reading at and divide it by two and give it all at once. Will reach out to the provider regarding this.
--- NOTE | 2024-01-16 08:00 | PM.HPGS ---
History of Present Illness History of Present Illness Date of Service: 01/23/24 Chief complaint: abdominal pain Narrative: Cece Conley is a 58 year old female admitted yesterday because of abdominal pain. She says that this actually started about 5-6 days ago. She says she she had associated vomiting at that time as well. She feels that she has been constipated. She says that she had been feeling fatigued and had been ?tired?. She denies any diarrhea. She says she gave herself an enema last because of her constipation. She says the pain was worse about 4 days ago. However, her overall constellation of symptoms persisted. She says the pain is low intensity. She denies any fever or chills She had a CAT scan done in the ED yesterday showing dilated appendix without periappendiceal inflammatory changes. Therefore admitted for observation for question of early appendicitis. She currently says that the pain is not worse and a little better compared to yesterday. She feels well overall. She is has ambulating without difficulty. Review of Systems Constitutional: Constitutional: Denies chills, Denies fever(s), Reports lethargy and Reports weakness Cardiovascular: Cardiovascular: Denies chest pain, Denies dyspnea and Denies dyspnea on exertion Respiratory: Respiratory: Denies cough, Denies dyspnea and Denies dyspnea on exertion Gastrointestinal: Gastrointestinal: Denies hematochezia and Denies change in bowel habits Genitourinary: Genitourinary: Denies hematuria Musculoskeletal: Musculoskeletal: Denies back pain and Denies limited range of motion Neurologic: Denies focal weakness, Denies convulsions and Reports weakness Psychiatric: Psychiatric: Denies depression and Denies mood swings [facility] Past Medical History Medical History Pulmonary emphysema Hypothyroidism Type 2 diabetes mellitus Osteoarthritis of hand, left Chronic constipation Hypoactive bowel sounds Hand numbness Autoimmune thyroiditis Abdominal pain Inflammatory arthritis Breast mass, right Lung cyst Bilateral hand numbness Neck pain Dyslipidemia Post-surgical hypothyroidism 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 Maternal Aunt Breast cancer Brother Essential hypertension Substance abuse Pure hypercholesterolemia Other Mental health problem Surgical History Surgical History Hx of arthroscopy of left knee History of liver biopsy Hx of removal of cyst History of hysterectomy History of thyroidectomy, total History of esophagogastroduodenoscopy (EGD) Hx of colonoscopy (1998) Social History Social History Household Members: None Housing: House Alcohol intake: never Patient Tobacco Use Status: Former Tobacco user Tobacco use type: Cigarette Cigarettes Per Day: 7 Years Smoked: 6 e-Cigarette/Vaping Use: Never Used Second Hand Smoke Exposure: No Advance Directives Date on File: 07/15/20 service: No Current occupational status: disabled Current occupation: right hand Cognitive needs: No Hearing needs: No Vision needs: No Meds Allergies Allergy/AdvReac Type Severity Reaction Status Date / Time gadobutrol [From GADAVIST] Allergy Severe ANAPHYLAXIS Verified 01/15/24 15:44 hydroxychloroquine Allergy Intermediate rash,facial Verified 01/15/24 15:44 [Plaquenil] swelling levofloxacin [From LEVAQUIN] Allergy Intermediate ITCHY RASH Verified 01/15/24 15:44 pregabalin [From LYRICA] Allergy Intermediate STOMACH Verified 01/15/24 15:44 UPSET, Swelling tramadol Allergy Intermediate abdominal Verified 01/15/24 15:44 pain azathioprine AdvReac Intermediate Nausea and Verified 01/15/24 15:44 Vomiting insulin aspart AdvReac Intermediate chills, Verified 01/15/24 15:44 [From Novolog U-100 Insulin shaking, aspart] sweating, weakness and tachycardia [id number] Reductase AdvReac Intermediate transamimit Verified 01/15/24 15:44 Inhibitor is Active Medications: Current Medications Acetaminophen (Acetaminophen 325 Mg Tablet) 650 mg PO Q6H PRN PRN Reason: Pain, Mild (Pain Scale 1-3), fever or headache Calcium Carbonate (Calcium Carbonate 750 Mg Tab.Chew) 750 mg PO Q4H PRN PRN Reason: Heartburn Famotidine (Famotidine 20 Mg Tablet) 20 mg PO BID JEANETTE Last Admin: 01/16/24 07:35 Dose: 20 mg Ketorolac Tromethamine (Ketorolac Tromethamine 15 Mg/Ml Vial) 15 mg IVPUSH RQ6H PRN PRN Reason: Pain, Severe (Pain Scale 7-10) Magnesium Hydroxide (Milk Of Magnesia 30 Ml Oral.Susp) 30 ml PO DAILY PRN PRN Reason: Constipation Melatonin (Melatonin 3 Mg Tablet) 6 mg PO BEDTIME PRN PRN Reason: Insomnia Ondansetron HCl (Ondansetron Hcl 4 Mg/2 Ml Vial) 4 mg IVPUSH Q8H PRN PRN Reason: Nausea and Vomiting Sodium Chloride (0.9 % Sodium Chloride Flush 3 Ml Syringe) 3 ml IVFLUSH QSHIFT [facility] Last Admin: 01/16/24 07:35 Dose: 3 ml Home Medications ?Medication ?Instructions ?Recorded ?Confirmed ?Last Taken ?Type alendronate 70 mg tablet 70 mg PO WE 01/15/24 01/18/24 Unknown History ibuprofen 600 mg tablet 600 mg PO TID PRN Pain, Mild 01/15/24 01/18/24 Unknown History insulin degludec 200 unit/mL (3 175 unit subcut BID 01/15/24 01/18/24 01/14/24 History mL) subcutaneous pen (Tresiba FlexTouch U-200 insulin) ergocalciferol (vitamin D2) 1,250 1,250 mcg PO WE 01/16/24 01/18/24 01/11/24 History mcg (50,000 unit) capsule oxycodone 10 mg tablet 5 - 10 mg PO Q8H PRN pain 01/16/24 01/18/24 01/14/24 History 5 mg ropinirole 0.25 mg tablet 0.25 mg PO BEDTIME PRN Restless 01/16/24 01/18/24 01/14/24 History Leg(S) semaglutide 0.25 mg or 0.5 mg (2 0.25 mg subcut WE 01/16/24 01/18/24 01/11/24 History mg/3 mL) subcutaneous pen injector (Ozempic) Physical Exam Vital Signs: Vital Signs: Last Vital Signs Temp 98.1 F 01/16/24 07:50 Pulse 75 01/16/24 07:50 Resp 16 01/16/24 07:50 BP 119/69 01/16/24 07:50 Pulse Ox 98 01/16/24 07:50 O2 Del Method Room Air 01/16/24 07:50 BMI result Body Mass Index 26.6 Const: Other: Looks well, seen ambulating General: comfortable and no acute distress Orientation/consciousness: patient oriented x3 Neck: Neck: Yes no lymphadenopathy Resp: Auscultation: clear to auscultation bilaterally Cardio: Rhythm: regular rhythm GI: Inspection: No distended Palpation (GI): Soft to palpation, Tenderness to palpation present (GI) (Mild tenderness on right lower quadrant) and no guarding Neuro: General: patient oriented x3 Results Results Labs: Short CBC 01/15/24 01/16/24 Range/Units 16:00 05:42 WBC 5.5 4.7 L (4.8-10.8) X10*3/uL Hgb 12.4 12.2 (12.0-16.0) g/dl Hct 35.7 L 36.3 L (37.0-47.0) % Plt Count 270 240 (160-400) X10*3/uL BMP 01/15/24 15:59 Sodium 137 Potassium 3.8 Chloride 105 Carbon Dioxide 23 BUN 23 H Creatinine 0.85 Calcium 10.5 H D Liver Function 01/15/24 Range/Units 15:59 Total Bilirubin 1.7 H (0.0-1.0) mg/dL AST 14 (5-31) U/L ALT 15 (0-31) U/L Alkaline Phosphatase 96 (39-117) U/L Albumin 4.5 (3.5-5.0) g/dL Urine 01/15/24 Range/Units 20:46 Urine Color Dark Yellow Urine Appearance Clear Urine pH 5.5 (5.0-9.0) Ur Specific [place] >= 1.030 H (1.005-1.025) Urine Protein 30 (1+) H (Neg-Trace) mg/dL Urine Glucose (UA) >=1000 H (Negative) mg/dL Laboratory Results WBC 4.7 X10*3/uL (4.8-10.8) L 01/16/24 05:42 RBC 4.09 X10*6/uL (4.20-5.50) L 01/16/24 05:42 Hgb 12.2 g/dl (12.0-16.0) 01/16/24 05:42 Hct 36.3 % (37.0-47.0) L 01/16/24 05:42 MCV 88.8 fL (80.0-98.0) 01/16/24 05:42 MCH 29.8 pg (27.0-33.0) 01/16/24 05:42 MCHC 33.6 g/dl (31.0-35.0) 01/16/24 05:42 RDW 12.8 % (11.0-16.0) 01/16/24 05:42 Plt Count 240 X10*3/uL (160-400) 01/16/24 05:42 MPV 8.9 fL (9.4-12.3) L 01/16/24 05:42 Immature Gran % (Auto) 0.4 % (0.0-0.4) 01/15/24 16:00 Neut % (Auto) 66.5 % (45-73) 01/15/24 16:00 Lymph % (Auto) 25.9 % (20-40) 01/15/24 16:00 [place] % (Auto) 6.6 % (2-11) 01/15/24 16:00 Eos % (Auto) 0.2 % (0-4) 01/15/24 16:00 Baso % (Auto) 0.4 % (0-2) 01/15/24 16:00 Lymph # (Auto) 1.4 X10*3/uL (1.2-4.9) 01/15/24 16:00 [place] # (Auto) 0.4 X10*3/uL (0.1-1.2) 01/15/24 16:00 Eos # (Auto) 0.0 X10*3/uL (0.0-0.4) 01/15/24 16:00 Baso # (Auto) 0.0 X10*3/uL (0.0-0.2) 01/15/24 16:00 Abs Immat Gran (auto) 0.02 X10*3/uL (0.00-0.03) 01/15/24 16:00 Absolute Neuts (auto) 3.6 x10*3/uL (2.0-8.3) 01/15/24 16:00 Absolute Nucleated RBC 0.000 X10*3/uL (0.0-0.012) 01/16/24 05:42 Nucleated RBC % (auto) 0.0 /100WBC (0.0-0.2) 01/16/24 05:42 Sodium 137 mmol/L (135-145) 01/15/24 15:59 Potassium 3.8 mmol/L (3.3-5.1) 01/15/24 15:59 Chloride 105 mmol/L (96-108) 01/15/24 15:59 Carbon Dioxide 23 mmol/L (22-29) 01/15/24 15:59 Anion Gap 13 (12-20) 01/15/24 15:59 BUN 23 mg/dL (9-16) H 01/15/24 15:59 Creatinine 0.85 mg/dL (0.5-1.4) 01/15/24 15:59 Estim Creat Clear Calc 77.1 01/15/24 15:59 Estimated GFR > 60 01/15/24 15:59 POC Glucose 166 mg/dL (60-115) H 01/16/24 07:56 Random Glucose 188 mg/dL (60-115) H 01/15/24 15:59 Calcium 10.5 mg/dL (8.4-10.2) H D 01/15/24 15:59 Magnesium 2.1 mg/dL (1.6-2.6) 01/15/24 15:59 Total Bilirubin 1.7 mg/dL (0.0-1.0) H 01/15/24 15:59 AST 14 U/L (5-31) 01/15/24 15:59 ALT 15 U/L (0-31) 01/15/24 15:59 Alkaline Phosphatase 96 U/L (39-117) 01/15/24 15:59 Total Protein 9.5 g/dL (6.5-8.0) H 01/15/24 15:59 Albumin 4.5 g/dL (3.5-5.0) 01/15/24 15:59 Lipase 9 U/L (8-78) 01/15/24 15:59 Urine Color Dark Yellow 01/15/24 20:46 Urine Appearance Clear 01/15/24 20:46 Urine pH 5.5 (5.0-9.0) 01/15/24 20:46 Ur Specific [place] >= 1.030 (1.005-1.025) H 01/15/24 20:46 Urine Protein 30 (1+) mg/dL (Neg-Trace) H 01/15/24 20:46 Urine Glucose (UA) >=1000 mg/dL (Negative) H 01/15/24 20:46 Urine Ketones 40 mg/dL (Negative) 01/15/24 20:46 Urine Blood Negative (Negative) 01/15/24 20:46 Urine Nitrite Negative (Negative) 01/15/24 20:46 Ur Leukocyte Esterase Negative (Negative) 01/15/24 20:46 Urine RBC 0-2 /HPF (0-2) 01/15/24 20:46 Urine WBC 0-5 /HPF (0-5) 01/15/24 20:46 Ur Squamous Epith Cells 0-2 /HPF (0-2) 01/15/24 20:46 Urine Bacteria None Seen (None Seen) 01/15/24 20:46 Hyaline Casts 0-2 /LPF (0-2) 01/15/24 20:46 Influenza Type A (PCR) NEGATIVE (Negative) 01/15/24 16:00 Influenza Type B (PCR) NEGATIVE (Negative) 01/15/24 16:00 RSV RNA Qual (PCR) NEGATIVE (Negative) 01/15/24 16:00 SARS-CoV-2 RNA (RT-PCR) NEGATIVE (Negative) 01/15/24 16:00 Impressions Abdomen/Pelvis CT 01/15/24 18:33 IMPRESSION: 1. The appendix is mildly dilated on the current exam measuring 9 mm. It is not filled with air as it was on the prior study. No periappendiceal inflammatory changes are seen. Findings are equivocal for early acute appendicitis. Close clinical follow-up recommended. 2. Incidental note made of hepatosplenomegaly, cholecystectomy and hysterectomy. Fleischner guidelines were followed. Electronically signed by: Ever Andrade MD 01/15/2024 08:[address] scan report/results: report reviewed and image reviewed CT scan - pelvis: report reviewed and image reviewed Assessment and Plan (1) Abdominal pain: Status: Acute She has had a constellation of symptoms including abdominal pain, nausea, and fatigue starting from last week. Overall clinical picture is not suggestive of acute appendicitis. I have reviewed her CAT scan images. No inflammatory changes around the appendix is seen. She does have some tenderness on right lower quadrant but this is mild. She has no leukocytosis She has had no vomiting admission We will advance her diet slowly. If she continues to improve, we may be able to discharge her. Exact etiology is uncertain as this time. Quality Stroke Does the patient have a stroke diagnosis?: No VTE Prior VTE?: No VTE Risk Level:: Surgical - low VTE Device Contraindication: Treatment Not Indicated VTE Drug Contraindication: Treatment Not Indicated Procedures Date of Service Date of Service: 01/23/24
[2024-01-16 08:01] LABS: Glucose, Whole Blood 166 mg/dL (60-115)
[2024-01-16 11:09] LABS: Glucose, Whole Blood 221 mg/dL (60-115)
--- NOTE | 2024-01-16 11:43 | PC.NURSE ---
pt with allergy to insulin aspart, doctor ordered sliding scale with insulin lispro. Pt expressed concern about short acting insulin, asking if we had degludec (pt home medication). This RN spoke to pharmacist Berhane about pt concerns. Pharmacist said to hold off on administration and that they would reach out to the ordering doctor.
[2024-01-16] MEDS: Levothyroxine Sodium 200 MCG TABLET PO (14:41)
[2024-01-16] MEDS: Levothyroxine Sodium 50 MCG TABLET PO (14:41)
[2024-01-16 15:04] VITALS: BP 116/55; PULSE 57; RESP 20; TEMP 36.6; O2SAT 97
--- NOTE | 2024-01-16 15:04 | PM.EVENT ---
Event Note Date of Service: 01/16/24 Event Note: Seen on afternoon rounds She feels well Had regular diet - describes some episode of abdominal pain, mild after eating She is very anxious We will keep for another day and see how she does overnight Repeat CBC tomorrow morning Add Colace in view of her constipation Looks well overall Time Spent With Patient Time: Total time managing care of this patient today ____ minutes.
--- NOTE | 2024-01-16 15:13 | MHC.CM.PN ---
[facility] DELIVERED PT LIVES ALONE AND IS INDEPENDENT WITH MOBILITY. PT USES WALKER NEEDED. NO SVCES AT THIS TIME. +HCP (COPY AT HOME) PT STATES SHE WILL HAVE HER DAUGHTER BRING IN THE COPY. PCP DR. VEGA AT [facility] – [place]. DP: HOME, NO SERVICES IS THE GOAL. PT HAS OWN RIDE HOME. CM WILL CONTINUE TO FOLLOW FOR ANY CHANGE TO DC PLAN/NEEDS.
[2024-01-16] MEDS: Acetaminophen 325 MG TABLET 650 MG PO (15:41)
[2024-01-16 16:07] LABS: Glucose, Whole Blood 149 mg/dL (60-115)
[2024-01-16 20:05] LABS: Glucose, Whole Blood 182 mg/dL (60-115)
[2024-01-16] MEDS: Docusate Sodium 100 MG CAPSULE PO (21:05)
[2024-01-16 23:35] VITALS: BP 124/82; PULSE 63; RESP 16; TEMP 36.9; O2SAT 98
[2024-01-17] MEDS: Zolpidem Tartrate 5 MG TABLET 10 MG PO (00:08)
[2024-01-17 06:44] LABS: Hemoglobin 11.7 g/dl (12.0-16.0); Mean Corpuscular HGB Conc 34.4 g/dl (31.0-35.0); Mean Corpuscular Volume 87.2 fL (80.0-98.0); Mean Platelet Volume 8.7 fL (9.4-12.3); Platelet Count 245 X10*3/uL (160-400); Red Cell Distribution Width 12.8 % (11.0-16.0); White Blood Count 3.8 X10*3/uL (4.8-10.8)
[2024-01-17 07:34] VITALS: BP 114/63; PULSE 62; RESP 18; TEMP 36.2; O2SAT 99
[2024-01-17 07:43] LABS: Glucose, Whole Blood 187 mg/dL (60-115)
--- NOTE | 2024-01-17 08:00 | P.PNGS_ITS ---
Subjective Subjective Date of Service: 01/17/24 Interval history: She states she had a good night Tolerating diet well Denies abdominal pain Physical Exam 2 Vital Signs: Vital Signs: Last Vital Signs Temp 97.2 F 01/17/24 07:34 Pulse 62 01/17/24 07:34 Resp 18 01/17/24 07:34 BP 114/63 01/17/24 07:34 Pulse Ox 99 01/17/24 07:34 O2 Del Method Room Air 01/17/24 07:34 BMI result Body Mass Index 26.6 Const: Other: Looks well General: comfortable and no acute distress Resp: Effort & Inspection: normal respiratory effort Cardio: Rate: regular rate GI: Palpation (GI): Soft to palpation, not firm, nontender and no guarding Objective Data Active Medications Acetaminophen (Acetaminophen 325 Mg Tablet) 650 mg PO Q6H PRN PRN Reason: Pain, Mild (Pain Scale 1-3), fever or headache Last Admin: 01/16/24 15:41 Dose: 650 mg Documented By: HAKEEM Albuterol Sulfate (Albuterol Sulfate 90 Mcg 8 Gm Inhaler) 2 puff INHALE Q6H PRN PRN Reason: bronchospasm Atorvastatin Calcium (Atorvastatin Calcium 10 Mg Tablet) 10 mg PO DAILY [facility] Calcium Carbonate (Calcium Carbonate 750 Mg Tab.Chew) 750 mg PO Q4H PRN PRN Reason: Heartburn Docusate Sodium (Docusate Sodium 100 Mg Capsule) 100 mg PO BID [facility] Last Admin: 01/16/24 21:05 Dose: 100 mg Documented By: JAIME Famotidine (Famotidine 20 Mg Tablet) 20 mg PO BID [facility] Last Admin: 01/16/24 21:05 Dose: 20 mg Documented By: JAIME Glucose (Glucose Gel 15 Gm Gel..Gram.) 15 gm PO Q15M PRN; Protocol PRN Reason: per Hypoglycemia Standing Ord. Dextrose (D10) 250 mls @ 750 mls/hr IV Q15M PRN; Protocol PRN Reason: per Hypoglycemia Standing Ord. Insulin Human Lispro (Insulin Lispro 100 Unit/Ml 3 Ml Vial) 0 unit SUBCUT QIDACHS [facility]; Protocol Last Admin: 01/16/24 20:44 Dose: Not Given Documented By: JAIME Non-Admin Reason: Physician Held Med Comments: pt has allergies to insulin aspart, takes degludec ay home, none in our pharmacy, MD Harvey mcwilliams to hold off medication tonight Ketorolac Tromethamine (Ketorolac Tromethamine 15 Mg/Ml Vial) 15 mg IVPUSH RQ6H PRN PRN Reason: Pain, Severe (Pain Scale 7-10) Levothyroxine Sodium (Levothyroxine Sodium 200 Mcg Tablet) 200 mcg PO DAILY JEANETTE Levothyroxine Sodium (Levothyroxine Sodium 50 Mcg Tablet) 50 mcg PO DAILY JEANETTE Magnesium Hydroxide (Milk Of Magnesia 30 Ml Oral.Susp) 30 ml PO DAILY PRN PRN Reason: Constipation Melatonin (Melatonin 3 Mg Tablet) 6 mg PO BEDTIME PRN PRN Reason: Insomnia Non-Formulary Medication (Mercaptopurine) 50 mg PO DAILY JEANETTE Omeprazole (Omeprazole 40 Mg Capsule.Dr) 40 mg PO DAILY JEANETTE Ondansetron HCl (Ondansetron Hcl 4 Mg/2 Ml Vial) 4 mg IVPUSH Q8H PRN PRN Reason: Nausea and Vomiting Ropinirole HCl (Ropinirole Hcl 0.25 Mg Tablet) 0.25 mg PO BEDTIME PRN PRN Reason: Restless Leg(S) Sodium Chloride (0.9 % Sodium Chloride Flush 3 Ml Syringe) 3 ml IVFLUSH QSHIFT [facility] Last Admin: 01/16/24 21:06 Dose: 3 ml Documented By: JAIME Zolpidem Tartrate (Zolpidem Tartrate 5 Mg Tablet) 10 mg PO BEDTIME [facility] Last Admin: 01/17/24 00:08 Dose: 10 mg Documented By: JAIME Labs 01/17/24 06:14 01/15/24 15:59 Labs: Laboratory Results - last 24 hr 01/16/24 01/16/24 01/16/24 07:56 11:04 16:03 MCV MCH MCHC RDW Plt Count MPV Absolute Nucleated RBC Nucleated RBC % (auto) POC Glucose 166 H 221 H 149 H 01/16/24 01/17/24 01/17/24 20:01 06:14 07:39 MCV 87.2 MCH 30.0 MCHC 34.4 RDW 12.8 Plt Count 245 MPV 8.7 L Absolute Nucleated RBC 0.000 Nucleated RBC % (auto) 0.0 POC Glucose 182 H 187 H Procedures Date of Service Date of Service: 01/17/24 Progress Note: A&P Assessment and plan (1) Abdominal pain: Status: Acute Assessment and Plan: Resolved WBC normal No fever Clinically not acute appendicitis Good GI functions Abdomen soft and benign Okay to DC Start stool softeners for constipation Time Spent With Patient Time: Total time managing care of this patient today ____ minutes. Quality Stroke Does the patient have a stroke diagnosis?: No VTE Prior VTE?: No VTE Risk Level:: Surgical - low VTE Device Contraindication: Treatment Not Indicated VTE Drug Contraindication: Treatment Not Indicated
[2024-01-17] MEDS: Levothyroxine Sodium 200 MCG TABLET PO (09:05)
[2024-01-17] MEDS: Levothyroxine Sodium 50 MCG TABLET PO (09:05)
[2024-01-17] MEDS: 0.9 % Sodium Chloride Flush 3 ML SYRINGE IVFLUSH (09:06)
--- NOTE | 2024-01-17 09:15 | MHC.CM.PN ---
PT MEDICALLY CLEARED FOR DC HOME SELF CARE, PT TO ARRANGE TRANSPORT
[2024-01-17] MEDS: Atorvastatin Calcium 10 MG TABLET PO (10:18)
[2024-01-17] MEDS: Omeprazole 40 MG CAPSULE.DR PO (10:18)
[2024-01-17] MEDS: Docusate Sodium 100 MG CAPSULE PO (10:18)
[2024-01-17] MEDS: Famotidine 20 MG TABLET PO (10:19)
--- NOTE | 2024-01-17 13:04 | PM.DS ---
DS: Providers Provider Date of Service: 01/17/24 Date of admission: 01/15/24 23:16 Date of discharge: 01/17/24 Primary care physician: Becca Newberry MD Attending physician on admission: Jennifer Bustos Attending physician on discharge: Osbaldo Carrero DS: Diagnosis Discharge Diagnosis (1) Abdominal pain: Status: Acute DS: Summary Hospital Course Hospital Course: HPI AT ADMISSION: Cece Conley is a 58 year old female admitted yesterday because of abdominal pain. She says that this actually started about 5-6 days ago. She says she she had associated vomiting at that time as well. She feels that she has been constipated. She says that she had been feeling fatigued and had been ?tired?. She denies any diarrhea. She says she gave herself an enema last because of her constipation. She says the pain was worse about 4 days ago. However, her overall constellation of symptoms persisted. She says the pain is low intensity. She denies any fever or chills. She had a CAT scan done in the ED yesterday showing dilated appendix without periappendiceal inflammatory changes. Therefore admitted for observation for question of early appendicitis. She currently says that the pain is not worse and a little better compared to yesterday. She feels well overall. She is has ambulating without difficulty. HOSPITAL COURSE: She was admitted to the surgical service for observation in light of the abdominal pain and CT scan findings however her clinical picture was not suggestive of acute appendicitis. Her abdomen was very benign and she was clinically appearing well. Nonoperative measures were continued. She was started on a bowel regimen as her CT demonstrated constipation. She continued to improve and her symptoms resolved. Her diet was advanced from clear liquids to solids. On the day of discharge her abd pain had resolved and she was tolerating a solid diet without nausea or vomiting. Her abdomen was benign. She was discharged to home on 01/17/24 in stable condition. She is to follow up with her PCP. She is to continue a bowel regimen for her constipation. Status at Discharge Functional status at discharge: independent ambulation Overall status at discharge: patient is progressing back to baseline Time Attestation Discharge Coordination Time (in mins): 30 Quality: Safe Use of Opioids Does Pt have an Active Cancer Diagnosis on the Problem List?: No Quality: Stroke Does the patient have a stroke diagnosis?: No Physical Exam Vital Signs: Vital Signs: Last Vital Signs Temp 97.2 F 01/17/24 07:34 Pulse 62 01/17/24 07:34 Resp 18 01/17/24 07:34 BP 114/63 01/17/24 07:34 Pulse Ox 99 01/17/24 07:34 O2 Del Method Room Air 01/17/24 07:34 BMI result Body Mass Index 26.6 Discharge Plan Discharge Patient Disposition: Home, Self-Care Referrals: Becca Sprague MD [Primary Care Provider] - 1 Week Discharge Medications: New docusate sodium [Colace] 100 mg capsule 100 mg PO BID Qty: 60 2RF Continued loratadine 10 mg capsule 10 mg PO DAILY 90 Days Qty: 90 3RF albuterol sulfate 90 mcg/actuation HFA aerosol inhaler 2 puff inhalation Q6H PRN (Reason: bronchospasm) 30 Days Qty: 6.7 2RF (DME) lancets [FreeStyle Lancets] 28 gauge misc See Rx Instructions .Route Qty: 100 5RF Rx Instructions: Use 1 lancet three times a day (DME) underpads [Bed Underpads] Pad See Rx Instructions .Route Qty: 100 11RF Rx Instructions: As directed mercaptopurine 50 mg tablet 50 mg PO DAILY Qty: 90 2RF (DME) FreeStyle Lite Strips Strip See Rx Instructions .Route Qty: 100 11RF Rx Instructions: As directed 3 times a day ondansetron HCl 8 mg tablet 8 mg PO DAILY PRN (Reason: nausea and vomiting) 30 Days Qty: 30 0RF Jardiance 10 mg tablet 10 mg PO DAILY 30 Days Qty: 30 4RF cholecalciferol (vitamin D3) 50 mcg (2,000 unit) capsule 50 mcg PO DAILY 90 Days Qty: 90 3RF levothyroxine 200 mcg tablet 200 mcg PO DAILY 90 Days Qty: 90 1RF levothyroxine 50 mcg tablet 50 mcg PO DAILY 90 Days Qty: 90 0RF rosuvastatin 10 mg tablet 10 mg PO DAILY 90 Days Qty: 90 2RF (DME) pen needle, diabetic [BD Ultra-Fine Alivia Pen Needle] 32 gauge x 5/32 needle See Rx Instructions .ROUTE .MEDSUPPLY Qty: 150 11RF Rx Instructions: As directed 4x/day zolpidem 10 mg tablet 10 mg PO BEDTIME 30 Days Qty: 30 0RF alendronate 70 mg tablet 70 mg PO WE ibuprofen 600 mg tablet 600 mg PO TID PRN (Reason: Pain, Mild) insulin degludec [Tresiba FlexTouch U-200] 200 unit/mL (3 mL) insulin pen 175 unit subcut BID Rx Instructions: patient states she takes 175 units BID but will split dose in half based off of blood sugar ergocalciferol (vitamin D2) 1,250 mcg (50,000 unit) Capsule 1,250 mcg PO WE Ozempic 0.25 mg or 0.5 mg (2 mg/3 mL) pen injector 0.25 mg subcut WE Rx Instructions: for 4 weeks ropinirole 0.25 mg tablet 0.25 mg PO BEDTIME PRN (Reason: Restless Leg(S)) Rx Instructions: administer 1-3 hours before bedtime oxycodone 10 mg tablet 5 - 10 mg PO Q8H PRN (Reason: pain) Rx Instructions: Partial Fill upon patient request. patient states she usually only takes 5mg omeprazole 20 mg capsule,delayed release(DR/EC) 40 mg PO DAILY 90 Days Qty: 180 1RF (DME) bed rails See Rx Instructions .Route .MEDSUPPLY Qty: 1 0RF Rx Instructions: As directed (DME) blood-glucose meter [FreeStyle Lite Meter] Kit See Rx Instructions .Route Qty: 1 0RF Rx Instructions: As directed (DME) FreeStyle Liza 2 Sensor Kit See Rx Instructions .Route Qty: 2 5RF Rx Instructions: As directed -change every 14 days (DME) FreeStyle Liza 2 [place] Misc See Rx Instructions .Route Qty: 1 2RF Rx Instructions: As directed meloxicam 15 mg tablet 15 mg PO DAILY PRN (Reason: pain) Qty: 30 3RF Discharge Orders: Discharge Order (Routine); Ordered 01/17/24 Ordered By: Osbaldo Carrero Diet: Advance to usual diet Activity on Discharge: As tolerated Stand Alone Forms: Patient Portal Discharge page Print Language: Other Activity Restrictions/Additional Instructions: Follow up with your PCP. Call Your Doctor If: ? ? -Your temperature exceeds 101.5? F? ? ? -You experience excessive pain or swelling ? ? -You have an unexpected reaction to medication ? ? -You experience continued vomiting/nausea Care Plan Goals: Resolution of symptoms. Health Concerns: Diabetes mellitus abdominal pain Plan of Treatment: Observation, advancement of diet Assessment: Improved Discharge Date/Time: 01/17/24 10:35
== END 2024-01-17 10:35 | disposition home or self-care (01) ==
LOC: HO.ED 21:38 → HO.EDOVER 23:25 → HO.S3 23:43
PROVIDERS: Physician Assistant Medical; Surgery; Admitting Provider Surgery; Emergency Provider Emergency Medicine; PCP Internal Medicine; Visit Provider Surgery
DX: R10.31 Right lower quadrant pain (principal); K59.00 Constipation, unspecified; R53.1 Weakness; R53.83 Other fatigue; E03.9 Hypothyroidism, unspecified; E11.9 Type 2 diabetes mellitus without complications; J43.9 Emphysema, unspecified; J44.89 Other specified chronic obstructive pulmonary disease; K21.9 Gastro-esophageal reflux disease without esophagitis; M06.9 Rheumatoid arthritis, unspecified; Z03.818 Encounter for observation for suspected exposure to other biological agents ruled out; Z79.899 Other long term (current) drug therapy
CPT/HCPCS: 0241U; 36415; 74176; 80053; 81001; 82947; 83690; 83735; 85025; 85027; 93005; 96365; 96375; 99221; 99285; J2270; J2405; J2543

== ENCOUNTER → 2024-01-15 15:44 | Outpatient (BNV) | payer MEDICARE, MEDICAID, SELFPAY | PROVIDERS: Admitting Provider Surgery; Emergency Provider Emergency Medicine; PCP Internal Medicine; Visit Provider Internal Medicine Cardiovascular Disease | DX: R53.1 Weakness (principal) | CPT/HCPCS: 93010 ==

== ENCOUNTER → 2024-01-15 23:16 | Outpatient (BNV) | payer MEDICARE, MEDICAID, SELFPAY | PROVIDERS: Admitting Provider Surgery; Emergency Provider Emergency Medicine; PCP Internal Medicine; Visit Provider Surgery | DX: R10.9 Unspecified abdominal pain (principal) | CPT/HCPCS: 99222; 99238; 99499 ==

== ENCOUNTER 2024-01-30 13:21 | Outpatient (AMB) | payer MEDICARE, MEDICAID, SELFPAY ==
--- NOTE | 2024-01-30 13:28 | A.OFFPC_ITS ---
Vital Signs 01/30/24 13:31 Height 5 ft 7 in Weight 170 lb 4 oz BMI 26.7 BP 128/64 Blood Pressure Location Lt brachial Position Sitting Pulse 92 Pulse Source Pulse Oximeter Pulse Oximetry (%) 98 Oxygen Delivery Method Room Air Intake Visit Reasons: [facility] 01/16 abdominal pain Intake Note: Patient is here for hospital discharge follow up. Patient was discharged from [facility] on 01/17/24. Pt decline flu shot today. Security Officers And Guards Required: No Saxophone Assembler: Not Required per policy Accompanied by: Self / Same As Patient Allergies gadobutrol [From GADAVIST] Allergy (Severe, Verified 01/30/24 14:07) ANAPHYLAXIS hydroxychloroquine [Plaquenil] Allergy (Intermediate, Verified 01/30/24 14:07) rash,facial swelling levofloxacin [From LEVAQUIN] Allergy (Intermediate, Verified 01/30/24 14:07) ITCHY RASH pregabalin [From LYRICA] Allergy (Intermediate, Verified 01/30/24 14:07) STOMACH UPSET, Swelling tramadol Allergy (Intermediate, Verified 01/30/24 14:07) abdominal pain azathioprine Adverse Reaction (Intermediate, Verified 01/30/24 14:07) Nausea and Vomiting insulin aspart [From Novolog U-100 Insulin aspart] Adverse Reaction (Intermediate, Verified 01/30/24 14:07) chills, shaking, sweating, weakness and tachycardia Cwqrmrj-XFP-WzH Reductase Inhibitor Adverse Reaction (Intermediate, Verified 01/30/24 14:07) transamimitis Medication List - Last Reconciled 01/30/24 by Ethan Gonzales MD albuterol sulfate 90 mcg/actuation 2 puffs inhalation Q6H PRN 30 days alendronate 70 mg PO QWEEK 90 days [bed rails As directed] blood sugar diagnostic (FreeStyle Lite Strips) As directed 3 times a day blood-glucose meter (FreeStyle Lite Meter kit) As directed cholecalciferol (vitamin D3) 50 mcg PO DAILY 90 days docusate sodium (Colace) 100 mg PO BID empagliflozin (Jardiance) 10 mg PO DAILY 30 days ergocalciferol (vitamin D2) 1,250 mcg PO WE flash glucose scanning reader (YoostayStyle Liza 2 [place]) As directed flash glucose sensor (FreeStyle Liza 2 Sensor kit) As directed -change every 14 days ibuprofen 600 mg PO TID PRN insulin degludec (Tresiba FlexTouch U-200 insulin) 175 units subcut BID lancets (FreeStyle Lancets) Use 1 lancet three times a day levothyroxine 200 mcg PO DAILY 90 days levothyroxine 50 mcg PO DAILY 90 days loratadine 10 mg PO DAILY 90 days mercaptopurine 50 mg PO DAILY omeprazole 40 mg (2 x 20 mg) PO DAILY 90 days ondansetron HCl 8 mg PO DAILY PRN 30 days oxycodone 5 - 10 mg PO Q8H PRN pen needle, diabetic (BD Ultra-Fine Alivia Pen Needle) As directed 4x/day ropinirole 0.25 mg PO BEDTIME PRN rosuvastatin 10 mg PO DAILY 90 days semaglutide (Ozempic) 0.25 mg subcut WE underpads (Bed Underpads) As directed zolpidem 10 mg PO BEDTIME 30 days Tobacco use date assessed: 01/30/24 Dental Screening Dental Screen Date: 06/22/23 HPI TCM [facility] 01/16 abdominal pain HPI Details 58-year-old female [facility]. Date of admission 01/17/2024, date of discharge 01/18/2024. Discharge diagnosis: Possibility of appendicitis. 58-year-old female [facility] after recent hospitalization. Abdominal pain symptoms have reduced. Patient is still unable to eat a regular diet. Predominantly she is taking fluids and a semi-solid diet. 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 Maternal Aunt Breast cancer Brother Essential hypertension Substance abuse Pure hypercholesterolemia Other Mental health problem Social History Household Members: None Housing: House Alcohol intake: never Patient Tobacco Use Status: Former Tobacco user Tobacco use type: Cigarette Cigarettes Per Day: 7 Years Smoked: 6 e-Cigarette/Vaping Use: Never Used Second Hand Smoke Exposure: No Advance Directives Date on File: 07/15/20 service: No Current occupational status: disabled Current occupation: right hand Cognitive needs: No Hearing needs: No Vision needs: No Female Reproductive History Menstrual Age of Menarche: 12 Questionnaire Thrive Questionnaire Date Thrive assessed: 01/16/24 HATTIE-7 AMB Questionnaire HATTIE-7 Date HATTIE - 7 assessed: 06/22/23 Source: Developed by Drs. Esdras Tang, April Mathews, Bobby Toussaint and colleagues, with an educational antonella from [employer]. Physical exam (Primary Care) Vital Signs: Last Vital Signs Pulse 92 01/30/24 13:31 BP 128/64 01/30/24 13:31 Pulse Ox 98 01/30/24 13:31 Oxygen Delivery Method Room Air 01/30/24 13:31 BMI result Body Mass Index 26.7 Tobacco/Smoking Status: Tobacco use Status Tobacco use date assessed 01/30/24 01/30/24 13:36 Patient Tobacco Use Status Former Tobacco user 01/30/24 13:36 Tobacco use type Cigarette 01/30/24 13:36 e-Cigarette/Vaping Use Never Used 01/30/24 13:36 Thrive Assessment: Date of Thrive Assessment Date Thrive assessed 01/16/24 01/30/24 13:36 Const General: cooperative and healthy appearing Nutritional Appearance: well nourished Orientation/consciousness: patient oriented x3 Limitations: no limitations HENMT Head: Yes normal to inspection Eyes General: appearance normal, both eyes and all related structures Neck Neck: Yes normal visual inspection Chest Chest palpation & inspection: normal palpation of entire chest wall Resp Effort & Inspection: normal respiratory effort Neuro General: patient oriented x3 Coding Level of Care Code TCM Mod MDM <= 14 Days Diagnoses Left upper quadrant abdominal pain R10.12 Abdominal location: left upper quadrant Assessment & Plan Assessment & Plan (1) Abdominal pain: Code(s): R10.9 - Unspecified abdominal pain Category: Medical Qualifiers: Abdominal location: left upper quadrant Qualified Code(s): R10.12 - Left upper quadrant pain Plan: Patient's hospital record including the labs and imaging was reviewed. Clinically patient is improving. Her medication list was reviewed. Patient was encouraged to continue with soft diet and gradually increase it to a regular diet.
[2024-01-30 13:31] VITALS: BP 128/64; PULSE 92; O2SAT 98; BMI 26.7
== END 2024-01-30 13:53 | disposition home or self-care (01) ==
LOC: HO.HMCH 13:27
PROVIDERS: PCP Internal Medicine; Visit Provider Internal Medicine
DX: R10.12 Left upper quadrant pain (principal)

== ENCOUNTER → 2024-01-30 13:21 | Outpatient (BNVA) | payer MEDICARE, MEDICAID, SELFPAY | PROVIDERS: PCP Internal Medicine; Visit Provider Internal Medicine | DX: R10.12 Left upper quadrant pain (principal) | CPT/HCPCS: 99495 ==

== ENCOUNTER 2024-02-08 12:07 | Outpatient (REF) | payer MEDICARE, MEDICAID, SELFPAY ==
--- NOTE | ~2024-02-08 | MM_ITS ---
EXAMINATION: MM SCREENING DIGITAL BREAST TOMOSYNTHESIS, BILATERAL CLINICAL INFORMATION: Screening. Asymptomatic. COMPARISON: Mammography: Comparison is made with available priors TECHNIQUE: Digital breast mammography with tomosynthesis is performed in both the craniocaudal and mediolateral oblique views along with computer-aided detection (CAD). FINDINGS: There are scattered areas of fibroglandular density (ACR BI-RADS breast composition Category b). There are no significant masses, abnormal calcifications, or other abnormalities. MM/MM tomosynthesis screening BI IMPRESSION: No mammographic evidence of malignancy. ASSESSMENT: BI-RADS BI-RADS 1 - Negative RECOMMENDATION: Routine annual mammography screening. 1 year F/U This examination should not preclude the clinical evaluation of a suspicious palpable abnormality. This patient's information was entered into a reminder system with a target due date for their next mammogram. Electronically signed by: Delfina Patricia DO 02/17/2024 08:45 AM JOVITA
--- NOTE | ~2024-02-08 | MM_ITS ---
EXAMINATION: BONE DENSITOMETRY CLINICAL INDICATION: Other specified disorders of bone density and structure, unspecified site. COMPARISON: Previous BD dated 02/05/2022 and baseline BD dated 05/05/2012. TECHNIQUE: Using a [employer] DXA System (software version: 13.1) manufactured by [employer], dual-energy x-ray absorptiometry was performed of the lumbar spine and left hip. The images are of good technical quality. Summary results are attached. FINDINGS: AP SPINE L1-L4: Current: BMD 0.901 g/cm2, Z-score -1.6, T-score -2.3, osteopenia, 0.8% decrease from previous, 8.0% decrease from baseline (<5% change is not significant). Prior: BMD 0.908 g/cm2. Baseline: BMD 0.979 g/cm2. LEFT FEMUR, NECK: Current: BMD 0.897 g/cm2, Z-score -0.1, T-score -1.0, normal. Prior: BMD 0.908 g/cm2. Baseline: BMD 1.002 g/cm2. LEFT FEMUR, TOTAL: Current: BMD 0.931 g/cm2, Z-score 0.0, T-score -0.6, normal, 4.6% decrease from previous, 7.5% decrease from baseline (<5% change is not significant). Prior: BMD 0.976 g/cm2. Baseline: BMD 1.007 g/cm2. IDENTIFIED RISK FACTORS: History of adult fracture. Rheumatoid arthritis. Osteoporosis. Secondary osteoporosis (type 1 diabetes, hyperthyroidism, chronic liver disease, early menopause). Hysterectomy. Left oophorectomy. HISTORY OF FRACTURE: Other. MEDICATIONS: Vitamin D. MM/XR DEXA axial skeleton IMPRESSION: 1. DIAGNOSIS: Osteopenia based on the lowest T-score value of -2.3 in the lumbar spine applying World Health Organization criteria. 2. 10-YEAR FRACTURE RISK PREDICTION, FRAX: Major osteoporotic fracture (clinical spine, forearm, hip or shoulder) 8.4%. Hip fracture 0.5%. 3. Treatment Recommendations: NOF guidelines recommend consideration for treatment in postmenopausal women and men age 50 and older presenting with the following: -A hip or vertebral (clinical or morphometric) fracture. -T-score less than or equal to -2.5 at the femoral neck or spine after appropriate evaluation to exclude secondary causes. -Low bone mass at the hip or spine and a 10-year fracture probability by FRAX of greater than or equal to 3% for hip fracture or greater than or equal to 20% for major osteoporotic fracture based on the [place] adapted WHO algorithm. 4. Other Recommendations: All treatment decisions require clinical judgment and consideration of individual patient factors, including patient preferences, comorbidities, previous drug use, risk factors not captured in the FRAX model (e.g. frailty, falls, vitamin D deficiency, increased bone turnover, interval significant decline in bone density) and possible under or overestimation of fracture risk by FRAX. Additional medical evaluation for secondary cause of low bone mineral density may be appropriate. FUTURE SCAN RECOMMENDATION: People with diagnosed cases of osteoporosis or at high risk for fracture should have regular bone mineral density tests. For patients eligible for Medicare, routine testing is allowed once every 2 years. The testing frequency can be increased to one year for patients who have rapidly progressing disease, those who are receiving or discontinuing medical therapy to restore bone mass, or have additional risk factors. Electronically signed by: Rosalie Cosby MD 02/09/2024 12:41 PM JOVITA GIRON
== END 2024-02-08 12:08 | disposition home or self-care (01) ==
LOC: HO.MAMMO 12:07
PROVIDERS: PCP Internal Medicine; Visit Provider Internal Medicine
DX: Z12.31 Encounter for screening mammogram for malignant neoplasm of breast (principal); Z13.820 Encounter for screening for osteoporosis; M85.80 Other specified disorders of bone density and structure, unspecified site; Z78.0 Asymptomatic menopausal state; Z79.52 Long term (current) use of systemic steroids
CPT/HCPCS: 77063; 77067; 77080

== ENCOUNTER → 2024-02-08 12:45 | Outpatient (BNV) | payer MEDICARE, MEDICAID, SELFPAY | PROVIDERS: PCP Internal Medicine; Visit Provider Internal Medicine | DX: Z12.31 Encounter for screening mammogram for malignant neoplasm of breast (principal) | CPT/HCPCS: 77063; 77067 ==

== ENCOUNTER 2024-03-16 14:09 | Outpatient (AMB) | payer MEDICARE, MEDICAID, SELFPAY ==
--- NOTE | 2024-03-16 14:17 | MHC.OFFVIS ---
Vital Signs 03/16/24 14:19 Height 5 ft 7 in Weight 161 lb BMI 25.2 BP 92/62 Blood Pressure Location Lt brachial Position Sitting Pulse 86 Intake Visit Reasons: S/P Colon and bone den results Intake Note: Patient follow up for Colonoscopy/bone density results. Patient cc: some swallowing problems on and off and denies any other GI issues. 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 Required: No Accompanied by: Self / Same As Patient Allergies gadobutrol [From GADAVIST] Allergy (Severe, Verified 03/16/24 14:16) ANAPHYLAXIS hydroxychloroquine [Plaquenil] Allergy (Intermediate, Verified 03/16/24 14:16) rash,facial swelling levofloxacin [From LEVAQUIN] Allergy (Intermediate, Verified 03/16/24 14:16) ITCHY RASH pregabalin [From LYRICA] Allergy (Intermediate, Verified 03/16/24 14:16) STOMACH UPSET, Swelling tramadol Allergy (Intermediate, Verified 03/16/24 14:16) abdominal pain azathioprine Adverse Reaction (Intermediate, Verified 03/16/24 14:16) Nausea and Vomiting insulin aspart [From Novolog U-100 Insulin aspart] Adverse Reaction (Intermediate, Verified 03/16/24 14:16) chills, shaking, sweating, weakness and tachycardia Rbqhowc-SVY-LdH Reductase Inhibitor Adverse Reaction (Intermediate, Verified 03/16/24 14:16) transamimitis HPI Comments Details: This is a 56-year-old female past medical history of fibromyalgia, H pylori gastritis, who is following up for autoimmune hepatitis (with grade 2-3 activity and stage 3-4 fibrosis biopsy 11/2021). Recap: - Pt initially seen in 10/2021 for intermittent RUQ pain and elevated LFTs. Pt also has RA and was on MTX at one point but stopped this in summer 2021 due to elevation of LFTs. - Workup pos for ASMA 56. Previously check total IgG was elevated at 1884 in 2019. - Patient underwent liver biopsy on 12/18/21. Consistent with autoimmune hepatitis as suspected, with grade 2-3 activity and stage 3-4 fibrosis. - Treatment initially challenging due to labile sugars on pred and intolerance to Azathioprine. - Eventually switched to 6-MP in 03/2022. Adherence remained suboptimal throughout 2022 due to life events inclduing of her brother, surgeries leading to interruption in 6-MP which would then trigger AIH flare up. Has required multiple courses of high dose pred over the last 2 years. - Has also had ? of PSC based on elevated ALP and irregular dilation of CBD 14 mm ([facility] MRI scanned 07/2023) - H Pylori + since at least 2020. Tx deferred so far due to compliance issues. 11/22/23: [facility] Impression: 1. Normal colon and terminal ileum mucosa 2. Diverticulosis 3. Internal and external hemorrhoids Recommendations: - repeat colonoscopy for asymptomatic colorectal cancer screening in 10 years 03/16/24: Here for 6m follow up. Was admitted to [facility] for abd pain with question of appendicitis but was managed conservatively. Has lost a considerable weight on ozempic BMI 30 --> 25. But notes low energy and frequent nausea. Self discontinued 2 weeks ago. Reports good compliance to 6-MP - prev Rheum notes reviewed but pt says she was alluding to MTX not 6-MP. Reports occ burning retrosternal pain post prandially but otherwise no N,V, rash or itching. Due for labs and imaging. 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 Maternal Aunt Breast cancer Brother Essential hypertension Substance abuse Pure hypercholesterolemia Other Mental health problem Social History Household Members: None Housing: House Alcohol intake: never Patient Tobacco Use Status: Former Tobacco user Tobacco use type: Cigarette Cigarettes Per Day: 7 Years Smoked: 6 e-Cigarette/Vaping Use: Never Used Second Hand Smoke Exposure: No Advance Directives Date on File: 07/15/20 service: No Current occupational status: disabled Current occupation: right hand Cognitive needs: No Hearing needs: No Vision needs: No Female Reproductive History Menstrual Age of Menarche: 12 Review of Systems Const All systems reviewed & are unremarkable except as noted in HPI and below Physical Exam Vital Signs: Last Vital Signs Pulse 86 03/16/24 14:19 BP 92/62 03/16/24 14:19 BMI result Body Mass Index 25.2 No apparent distress Nonicteric Abdomen soft, nondistended Alert and oriented x3, normal gait Results Reviewed Results Reviewed: Dexa 01/2024: 1. DIAGNOSIS: Osteopenia based on the lowest T-score value of -2.3 in the lumbar spine applying World Health Organization criteria. Assessment & Plan Assessment & Plan (1) Autoimmune hepatitis: Code(s): K75.4 - Autoimmune hepatitis Category: Medical (2) Dilated bile duct: Code(s): K83.8 - Other specified diseases of biliary tract Category: Medical (3) Anemia: Code(s): D64.9 - Anemia, unspecified Category: Medical (4) GERD (gastroesophageal reflux disease): Code(s): K21.9 - Gastro-esophageal reflux disease without esophagitis Category: Medical Qualifiers: Esophagitis presence: esophagitis presence not specified Qualified Code(s): K21.9 - Gastro-esophageal reflux disease without esophagitis Plan 1. AIH 2. Dilated CBD ? PSC Patient has biopsy-proven autoimmune hepatitis. Appears to be in clinical remission at this time. Due for labs ordered. Plan: Check CBC, liver panel and IgG Continue 6-MP 50mg. Check metabolites MRCP ordered (pt requests through [facility]) Osteopenia: - Dexa done 01/2024. Osteopenia. - Already on Vit D. - Will recheck Vit D - Pt also encourgaed to follow up with Endo or Rheum to disucss therapy. Transplant candidacy: Established with [facility] - Dr Islas. CRC screening: - [facility] 2023 without polyps. Repeat recommended in 10 years. 3. Anemia Mild normocytic anemia noted on most recent labs. Plan: - Check CBC and iron panel 4. Epigastric pain/GERD Has known GERD. Will avoid detention use of PPI given known osteopenia. Plan: - Famotidine 20 mg once daily x 4 weeks and then use as needed - Pt will also need eradication therapy for H Pylori in near future Follow up 3 months Orders: Orders Complete Blood Count no Diff 03/16/24 K75.4 - Autoimmune hepatitis Prothrombin Time INR 03/16/24 K75.4 - Autoimmune hepatitis MR MRCP 03/16/24 K83.01 - Primary sclerosing cholangitis Vitamin D 25-OH Total 03/16/24 D64.9 - Anemia, unspecified, E03.9 - Hypothyroidism, unspecified Ferritin 03/16/24 D64.9 - Anemia, unspecified, E03.9 - Hypothyroidism, unspecified TSH reflex Free T4 03/16/24 D64.9 - Anemia, unspecified, E03.9 - Hypothyroidism, unspecified Comprehensive Met. Panel 03/16/24 K75.4 - Autoimmune hepatitis Thiopurine Methyltransferase 03/16/24 K75.4 - Autoimmune hepatitis Immunoglobulin G 03/16/24 K75.4 - Autoimmune hepatitis IRON PROFILE 03/16/24 D64.9 - Anemia, unspecified, E03.9 - Hypothyroidism, unspecified Medications: New famotidine 20 mg PO BEDTIME 90 days 90 tabs 0RF Discontinued omeprazole Discontinued Reason: Doctor's Order 40 mg (2 x 20 mg) PO DAILY 90 days 180 caps 1RF Coding Level of Care Code Est Pt Level 5 (03752) Complex EM visit Add On G2211 Diagnoses Autoimmune hepatitis K75.4 Dilated bile duct K83.8 Anemia D64.9 Gastroesophageal reflux disease, unspecified whether esophagitis present K21.9 Esophagitis presence: esophagitis presence not specified
[2024-03-16 14:19] VITALS: BP 92/62; PULSE 86; BMI 25.2
== END 2024-03-16 15:02 | disposition home or self-care (01) ==
PROVIDERS: PCP Internal Medicine; Visit Provider Internal Medicine
DX: K75.4 Autoimmune hepatitis (principal); K83.8 Other specified diseases of biliary tract; D64.9 Anemia, unspecified; K21.9 Gastro-esophageal reflux disease without esophagitis
CPT/HCPCS: 99214; G2211

== ENCOUNTER → 2024-03-16 14:09 | Outpatient (BNVA) | payer MEDICARE, MEDICAID, SELFPAY | PROVIDERS: PCP Internal Medicine; Visit Provider Internal Medicine | DX: K75.4 Autoimmune hepatitis (principal); K83.8 Other specified diseases of biliary tract; K21.9 Gastro-esophageal reflux disease without esophagitis; K83.01 Primary sclerosing cholangitis; D64.9 Anemia, unspecified; E03.9 Hypothyroidism, unspecified | CPT/HCPCS: 99212 ==

== ENCOUNTER 2024-03-22 14:48 | Outpatient (REF) | payer MEDICARE, MEDICAID, SELFPAY ==
[2024-03-22 15:46] LABS: Hematocrit 39.3 % (37.0-47.0); Hemoglobin 13.2 g/dl (12.0-16.0); Mean Corpuscular HGB Conc 33.6 g/dl (31.0-35.0); Mean Corpuscular Hemoglobin 29.7 pg (27.0-33.0); Mean Corpuscular Volume 88.5 fL (80.0-98.0); Mean Platelet Volume 8.9 fL (9.4-12.3); Platelet Count 271 X10*3/uL (160-400); Red Blood Count 4.44 X10*6/uL (4.20-5.50); Red Cell Distribution Width 12.5 % (11.0-16.0); White Blood Count 4.5 X10*3/uL (4.8-10.8)
[2024-03-22 16:00] LABS: Prothrombin Time 11.4 SEC (10.9-12.4)
[2024-03-22 16:23] LABS: Alanine Aminotransferase 16 U/L (0-31); Albumin Level 4.4 g/dL (3.5-5.0); Anion Gap 11 (12-20); Aspartate Amino Transferase 17 U/L (5-31); Bilirubin Total 0.6 mg/dL (0.0-1.0); Blood Urea Nitrogen 13 mg/dL (9-16); Carbon Dioxide 26 mmol/L (22-29); Chloride 104 mmol/L (96-108); Estimated Glomerular Filt Rate > 60; Glucose Random 213 mg/dL (60-115); Iron 62 mcg/dL (30-160); Percent Iron Saturation 22 % (15-50); Potassium 4.1 mmol/L (3.3-5.1); Sodium 137 mmol/L (135-145); Total Iron Binding Capacity 286 mcg/dL (228-428); Total Protein 9.2 g/dL (6.5-8.0); Unsaturated Iron Binding 224 ug/dL
[2024-03-22 16:43] LABS: Ferritin 178 ng/mL (10-250); Vitamin D 25-OH Total 26.9 ng/mL (>30)
[2024-03-22 17:42] LABS: Alkaline Phosphatase 99 U/L (39-117)
[2024-03-22 17:58] LABS: Free T4 (Free Thyroxine) 1.63 ng/dL (0.71-1.85)
[2024-03-23 08:43] LABS: Immunoglobulin G 2756 mg/dL (600-1640)
[2024-03-30 19:48] LABS: TPMT Activity 16
== END 2024-03-22 14:49 | disposition home or self-care (01) ==
LOC: HO.LAB 14:48
PROVIDERS: PCP Internal Medicine; Visit Provider Internal Medicine
DX: D64.9 Anemia, unspecified (principal); E03.9 Hypothyroidism, unspecified; K75.4 Autoimmune hepatitis
CPT/HCPCS: 36415; 80053; 82306; 82728; 82784; 83540; 84433; 84439; 84443; 85027; 85610

== ENCOUNTER 2024-04-05 13:17 | Outpatient (REF) | payer MEDICARE, SELFPAY ==
[2024-04-05 13:40] LABS: MANUAL DIFF FLAG NO
[2024-04-05 13:45] LABS: Basophils Percent Auto 0.6 % (0-2); Eosinophils Percent Auto 0.9 % (0-4); Hematocrit 35.4 % (37.0-47.0); Hemoglobin 12.3 g/dl (12.0-16.0); Imm Gran Abs Auto 0.02 X10*3/uL (0.00-0.03); Imm Gran Pct Auto 0.6 % (0.0-0.4); Lymphocytes Absolute Auto 1.3 X10*3/uL (1.2-4.9); Mean Corpuscular HGB Conc 34.7 g/dl (31.0-35.0); Mean Corpuscular Hemoglobin 30.4 pg (27.0-33.0); Mean Corpuscular Volume 87.6 fL (80.0-98.0); Mean Platelet Volume 8.7 fL (9.4-12.3); Monocytes Absolute Auto 0.3 X10*3/uL (0.1-1.2); Monocytes Percent Auto 7.8 % (2-11); Neutrophils Absolute Auto 1.8 x10*3/uL (2.0-8.3); Neutrophils Percent Auto 52.1 % (45-73); Platelet Count 235 X10*3/uL (160-400); Red Blood Count 4.04 X10*6/uL (4.20-5.50); Red Cell Distribution Width 12.5 % (11.0-16.0); White Blood Count 3.5 X10*3/uL (4.8-10.8)
[2024-04-05 14:27] LABS: B Type Natriuretic Peptide < 10 pg/mL (<100)
[2024-04-05 14:27] LABS: Creatinine Urine 60.44 mg/dL; Microalbum/Creatinine Ratio Ur 9.9 ug/mg cr (<30)
[2024-04-05 14:50] LABS: Alanine Aminotransferase 23 U/L (0-31); Albumin Level 4.1 g/dL (3.5-5.0); Alkaline Phosphatase 105 U/L (39-117); Aspartate Amino Transferase 22 U/L (5-31); Bilirubin Direct 0.2 mg/dL (0.0-0.5); Bilirubin Total 0.5 mg/dL (0.0-1.0); Free T4 (Free Thyroxine) 1.15 ng/dL (0.71-1.85); Total Protein 8.6 g/dL (6.5-8.0)
[2024-04-05 14:52] LABS: Alanine Aminotransferase 26 U/L (0-31); Albumin Level 4.2 g/dL (3.5-5.0); Alkaline Phosphatase 105 U/L (39-117); Anion Gap 8 (12-20); Aspartate Amino Transferase 27 U/L (5-31); Bilirubin Total 0.6 mg/dL (0.0-1.0); Blood Urea Nitrogen 14 mg/dL (9-16); Calcium 9.7 mg/dL (8.4-10.2); Carbon Dioxide 26 mmol/L (22-29); Chloride 107 mmol/L (96-108); Cholesterol 149 mg/dL (<200); Estimated Glomerular Filt Rate > 60; Glucose Fasting 216 mg/dL (60-99); HDL Cholesterol 48 mg/dL (>40); Iron 47 mcg/dL (30-160); LDL Cholesterol Calculated 82 mg/dL (<100); Percent Iron Saturation 18 % (15-50); Potassium 4.1 mmol/L (3.3-5.1); Sodium 137 mmol/L (135-145); Thyroid Stimulating Hormone 0.32 uIU/mL (0.32-4.0); Total Iron Binding Capacity 260 mcg/dL (228-428); Total Protein 8.6 g/dL (6.5-8.0); Triglycerides 96 mg/dL (<150); Unsaturated Iron Binding 213 ug/dL; Vitamin D 25-OH Total 24.1 ng/mL (>30)
[2024-04-05 15:03] LABS: Folate 16.2 ng/mL (> or = 4.0); Vitamin B12 570 pg/mL (200-900)
[2024-04-07 07:09] LABS: Immunoglobulin G 2652 mg/dL (600-1640)
[2024-04-10 09:03] LABS: Carbohydrate Antigen 19-9 13 U/mL (<34)
== END 2024-04-05 13:18 | disposition home or self-care (01) ==
LOC: HO.LAB 13:17
PROVIDERS: Internal Medicine; Internal Medicine Gastroenterology; Nurse Practitioner Adult Health; PCP Internal Medicine; Visit Provider Internal Medicine
DX: K75.4 Autoimmune hepatitis (principal); D64.9 Anemia, unspecified; E53.8 Deficiency of other specified B group vitamins; E06.3 Autoimmune thyroiditis; E78.5 Hyperlipidemia, unspecified; E11.9 Type 2 diabetes mellitus without complications; E55.9 Vitamin D deficiency, unspecified; E11.65 Type 2 diabetes mellitus with hyperglycemia; Z79.4 Long term (current) use of insulin
CPT/HCPCS: 36415; 80053; 80061; 80076; 82043; 82248; 82306; 82570; 82607; 82746; 82784; 83540; 83880; 84439; 84443; 85025; 86301

== ENCOUNTER 2024-04-09 16:36 | Outpatient (AMB) | payer MEDICARE, SELFPAY ==
[2024-04-09 16:48] VITALS: BP 120/72; BMI 26.6
--- NOTE | 2024-04-09 16:48 | A.OFFPC_ITS ---
Vital Signs 04/09/24 16:48 Height 5 ft 7 in Weight 170 lb BMI 26.6 BP 120/72 Blood Pressure Location Lt brachial Position Sitting Intake Visit Reasons: dm,thyroid,needs 30 minutes Intake Note: Patient here for a follow up Thyroid, DM Search Advertising Strategist Required: No Accompanied by: Self / Same As Patient Allergies gadobutrol [From GADAVIST] Allergy (Severe, Verified 04/09/24 17:24) ANAPHYLAXIS hydroxychloroquine [Plaquenil] Allergy (Intermediate, Verified 04/09/24 17:24) rash,facial swelling levofloxacin [From LEVAQUIN] Allergy (Intermediate, Verified 04/09/24 17:24) ITCHY RASH pregabalin [From LYRICA] Allergy (Intermediate, Verified 04/09/24 17:24) STOMACH UPSET, Swelling tramadol Allergy (Intermediate, Verified 04/09/24 17:24) abdominal pain azathioprine Adverse Reaction (Intermediate, Verified 04/09/24 17:24) Nausea and Vomiting insulin aspart [From Novolog U-100 Insulin aspart] Adverse Reaction (Intermediate, Verified 04/09/24 17:24) chills, shaking, sweating, weakness and tachycardia Asxfptg-PFX-PaU Reductase Inhibitor Adverse Reaction (Intermediate, Verified 04/09/24 17:24) transamimitis Medication List - Last Reconciled 04/09/24 by Becca Newberry MD albuterol sulfate 90 mcg/actuation 2 puffs inhalation Q6H PRN 30 days alendronate 70 mg PO QWEEK 90 days [bed rails As directed] blood sugar diagnostic (FreeStyle Lite Strips) As directed 3 times a day blood-glucose meter (FreeStyle Lite Meter kit) As directed cholecalciferol (vitamin D3) 50 mcg PO DAILY 90 days docusate sodium (Colace) 100 mg PO BID empagliflozin (Jardiance) 10 mg PO DAILY 30 days ergocalciferol (vitamin D2) 1,250 mcg PO WE 90 days famotidine 20 mg PO BEDTIME 90 days flash glucose scanning reader (FreeStyle Liaz 2 Brusett) As directed flash glucose sensor (FreeStyle Liza 2 Sensor kit) As directed -change every 14 days ibuprofen 600 mg PO TID PRN 30 days insulin degludec (Tresiba FlexTouch U-200 insulin) 175 units subcut BID lancets (FreeStyle Lancets) Use 1 lancet three times a day levothyroxine 200 mcg PO DAILY 90 days levothyroxine 50 mcg PO DAILY 90 days loratadine 10 mg PO DAILY 90 days mercaptopurine 50 mg PO DAILY ondansetron HCl 8 mg PO DAILY PRN 30 days oxycodone 10 mg PO Q8H PRN 30 days pen needle, diabetic (BD Ultra-Fine Alivia Pen Needle) As directed 4x/day ropinirole 0.25 mg PO BEDTIME PRN rosuvastatin 10 mg PO DAILY 90 days semaglutide (Ozempic) 0.25 mg (0.368 mL) subcut WE 4 weeks underpads (Bed Underpads) As directed zolpidem 10 mg PO BEDTIME 30 days Tobacco use date assessed: 04/09/24 Dental Screening Dental Screen Date: 04/09/24 Did you have a dental visit in the last 12 months?: Yes Did you have a dental problem in the last 6 months where you did not have access to dental care?: No Was dental information given to patient?: Patient has dentist HPI HPI Comments History of Present Illness Details The patient is a 58-year-old female presenting with shoulder pain, diabetes management, and general health follow-up. The patient reports shoulder pain originating in December last year, which extends to the hands. She feels it worsens with certain activities but can relieve with pressure. Previous imaging and evaluation of the shoulder were not discussed, but consultation with orthopedics is recommended. Her autoimmune hepatitis causes fluctuating white blood cell counts. She has had multiple allergic reactions to medications including rash, swelling, stomach pain, and nausea. Her diabetes management previously reported an A1c of 9.2 and has improved to 8.1. She experiences weight fluctuations associated with diabetes medication adjustments. The patient has a history of hyperlipidemia with current management balancing LDL levels without side effects. Her hypothyroidism is managed with levothyroxine. Osteopenia was identified in a bone density scan last year. The patient also experiences restless leg syndrome treated as needed. Vitamin D levels are deficient and managed by supplements. Also has autoimmune hepatitis follow by Gastroenterology and well controlled with mercaptopurine. Has seronegative rheumatoid arthritis follow by Rheumatology. Mild major depression has been in remission. [facility] Medical History (Updated 04/09/24 @ 17:42 by Becca Newberry MD) Pulmonary emphysema Hypothyroidism Type 2 diabetes mellitus Osteoarthritis of hand, left Chronic constipation Hypoactive bowel sounds Hand numbness Autoimmune thyroiditis Abdominal pain Inflammatory arthritis Breast mass, right Lung cyst Bilateral hand numbness Neck pain Dyslipidemia Post-surgical hypothyroidism Diabetic polyneuropathy associated with type 2 diabetes mellitus USP (current) use of insulin Chronic idiopathic constipation Low vitamin D level Weight loss GERD (gastroesophageal reflux disease) Diabetes type 2, uncontrolled Fibromyalgia Insomnia Surgical History Hx of arthroscopy of left knee History of liver biopsy Hx of removal of cyst History of hysterectomy History of thyroidectomy, total History of esophagogastroduodenoscopy (EGD) Hx of colonoscopy (1998) Family History Father Status post liver transplant, biliary anastomotic size mismatch Brother Cardiac arrest Mother No problems noted. Maternal Aunt Breast cancer Brother Essential hypertension Substance abuse Pure hypercholesterolemia Other Mental health problem Social History Household Members: None Housing: House Alcohol intake: never Patient Tobacco Use Status: Former Tobacco user Tobacco use type: Cigarette Cigarettes Per Day: 7 Years Smoked: 6 e-Cigarette/Vaping Use: Never Used Second Hand Smoke Exposure: No Advance Directives Date on File: 07/15/20 service: No Current occupational status: disabled Current occupation: right hand Cognitive needs: No Hearing needs: No Vision needs: No Female Reproductive History Menstrual Age of Menarche: 12 Questionnaire PHQ-9 Over the last 2 weeks, how often have you been bothered by any of the following problems? 1. Little interest or pleasure in doing things: not at all 2. Feeling down, depressed, or hopeless: several days 3. Trouble falling or staying asleep, or sleeping too much: not at all 4. Feeling tired or having little energy: not at all 5. Poor appetite or overeating: not at all 6. Feeling bad about yourself - or that you are a failure or have let yourself or your family down: not at all 7. Trouble concentrating on things, such as reading the newspaper or watching television: not at all 8. Moving or speaking so slowly that other people could have noticed. Or the opposite - being so fidgety or restless that you have been moving around a lot more than usual: not at all 9. Thoughts that you would be better off or of hurting yourself in some way: not at all Total score: 1 Depression Screening Interpretation: Negative Depression Screening Done: Yes 34384 - PHQ-9 Billing: Yes Source: Developed by Drs. Esdras Tang, April Mathews, Bobby Toussaint and colleagues, with an educational antonella from [employer]. Thrive Questionnaire Date Thrive assessed: 04/09/24 I am a: Patient What is your living situation today?: I have a steady place to live Within the past 12 months, did the food you bought not last and you didn't have the money to get more?: Never true Within the past 12 months, did you worry whether your food would run out before you got money to buy more?: Never true Do you have trouble paying for medicines?: No Do you have trouble getting transportation to medical appointments?: No Do you have trouble paying your heating and electricity bill?: No Do you have trouble taking care of your child, family member or friend?: No Do you have trouble with day-to-day activities such as bathing, preparing meals, shopping, managing finances, etc.?: No Are you currently unemployed and looking for a job?: No Are you interested in more education?: No Please select the resources that you would like help with: None Currently or been in a relationship where the following occur: No concerns reported THRIVE Score: 0 AUDIT C Alcohol Use Questionnaire (AUDIT-C) 1. How often do you have a drink containing alcohol?: Never Total Score: 0 Score Reviewed/Action Taken: No HATTIE-7 AMB Questionnaire HATTIE-7 Date HATTIE - 7 assessed: 04/09/24 Feeling nervous, anxious, or on edge: 1 = Several days Not being able to stop or control worryin = Several days Worrying too much about different things: 1 = Several days Trouble relaxin = Several days Being so restless that it is hard to sit still: 1 = Several days Becoming easily annoyed or irritable: 1 = Several days Feeling afraid as if something awful might happen: 0 = Not at all Total HATTIE-7 score (0-4 normal; 5-9 mild; 10-14 moderate; 15-21 severe): 6 Source: Developed by Drs. Esdras Tang, April Mathews, Bobby Toussaint and colleagues, with an educational antonella from [employer]. HATTIE-7 Assessment Billing HATTIE-7 Assessment Tool: HATTIE-7 Assessment 14845 Review of Systems Const All systems reviewed & are unremarkable except as noted in HPI and below Card Denies chest pain at rest, Denies chest pain with activity, Denies edema, Denies irregular heart rhythm, Denies claudication, Denies dyspnea, Denies dyspnea on exertion, Denies orthopnea, Denies paroxysmal nocturnal dyspnea and Denies slow heart rate Resp Denies cough, Denies dyspnea and Denies dyspnea on exertion GI Denies abdominal pain, Denies change in bowel habits, Denies excessive flatus, Denies nausea and Denies vomiting Physical exam (Primary Care) Vital Signs: Last Vital Signs BP 120/72 04/09/24 16:48 BMI result Body Mass Index 26.6 BMI Assessment/Plan discussion: High BMI High, discussed plan: lifestyle, weight reduction, dietary and physical activity Tobacco/Smoking Status: Tobacco use Status Tobacco use date assessed 04/09/24 04/09/24 16:56 Patient Tobacco Use Status Former Tobacco user 04/09/24 16:56 Tobacco use type Cigarette 04/09/24 16:56 e-Cigarette/Vaping Use Never Used 04/09/24 16:56 PHQ-9: PHQ-9 Score PHQ-9: Total score 1 04/09/24 17:44 Depression Screening Interpretation: Negative Thrive Assessment: Date of Thrive Assessment Date Thrive assessed 04/09/24 04/09/24 16:56 Currently or been in a relationship where the following occur: No concerns reported Resp Effort & Inspection: normal respiratory effort Auscultation: clear to auscultation bilaterally Cardio Jugular venous distension: no JVD Rate: regular rate Rhythm: regular rhythm Heart sounds: S1 normal heart sound present and S2 normal heart sound present Extrem General: Yes full ROM Office Procedures Flu Questionnaire Does the patient have a severe egg allergy?: No Results AMB Hemoglobin A1c AMB Hemoglobin A1c 8.1 % Last Edit by LINDA Crump on 04/09/24 17:0 0 Immunizations Fluarix Triv [id number] (PF) 45 mcg (15 mcg x 3)/0.5 mL IM syringe Performing Provider: Becca Newberry MD Performing Location: [facility] [place] [facility] Documented (not given) by: LINDA Crump on 04/09/24 17:45 Reason Not Given: Patient Refused Results Reviewed Results Reviewed: Laboratory Last Values Hgb A1c (Clinic) 8.1 % (4.0-6.0) H 04/09/24 16:48 Coding Level of Care Code Est Pt Level 4 (80223) Complex EM visit Add On G2211 Diagnoses Primary osteoarthritis, right shoulder M19.011 Hypothyroidism E03.9 Type 2 diabetes mellitus with hyperglycemia, with long-term current use of insulin E11.65; Z79.4 Diabetes mellitus terminal make up operator insulin use: with terminal make up operator use Diabetes mellitus complication status: with hyperglycemia Mild major depression F32.0 Autoimmune hepatitis K75.4 Hyperlipidemia LDL goal <70 E78.5 Seronegative rheumatoid arthritis M06.00 Additional Codes HATTIE-7 Assessment Billing - HATTIE-7 Assessment Tool: HATTIE-7 Assessment 32989 ([id number]) PHQ-9 - 96831 - PHQ-9 Billing: Yes ([id number]) Time Spent (min) 24 Assessment & Plan Assessment & Plan (1) Primary osteoarthritis, right shoulder: Code(s): M19.011 - Primary osteoarthritis, right shoulder Category: Medical (2) Hypothyroidism: Code(s): E03.9 - Hypothyroidism, unspecified Category: Medical (3) Type 2 diabetes mellitus: Code(s): E11.9 - Type 2 diabetes mellitus without complications Category: Medical Qualifiers: Diabetes mellitus terminal make up operator insulin use: with longterm use Diabetes mellitus complication status: with hyperglycemia Qualified Code(s): E11.65 - Type 2 diabetes mellitus with hyperglycemia; 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 Code(s): M06.00 - Rheumatoid arthritis without rheumatoid factor, unspecified site Category: Medical Plan - Continue current diabetes management, with attention to achieving further A1c reduction. - Advise on consistent use of levothyroxine for hypothyroidism and monitor TSH levels. - Recommend orthopedic consult for shoulder pain evaluation and potential imaging. - Continue statin therapy to manage hyperlipidemia without dosage increase currently. - Prescribe relaxation and pain relief options for shoulder pain, excluding NSAIDs. - Support gradual weight gain if medically necessary, considering recent reduction. - Continue Vitamin D3 supplementation weekly due to deficiency. - Monitor autoimmune hepatitis and associated lab results. - Evaluate restless leg syndrome treatment efficacy and adjust as needed. - Encourage follow-up on proactive health screenings, notably for osteoporosis. Patient was informed and verbally consented to the use of an ambient scribe for clinic note documentation during this visit. I explained to the patient the improvement in her A1c levels and emphasized the need to maintain consistent diabetes management. We discussed the risks associated with her shoulder pain and the possibility of worsening if untreated; therefore, I advised an orthopedic evaluation. We reviewed the potential side effects of her statin medication and decided to maintain the current dosage due to a balance between LDL targets and side effects. The use of Vitamin D supplementation was highlighted due to current deficiency. I reassured the patient that managing her conditions effectively should address some of her fatigue and weakness. Follow-up recommendations for upcoming appointments and evaluations were made clear. 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 Panel Fast 4 Months E11.65 - Type 2 diabetes mellitus with hyperglycemia, Z79.4 - USP (current) use of insulin Influenza [id number] Immunization Today Z23 - Encounter for immunization Referrals Orthopedics Referral M19.011 - Primary osteoarthritis, right shoulder Medications: New [bath bench with back] As directed 1 ea 0RF M17.11 - Unilateral primary osteoarthritis, right knee, M19.011 - Primary osteoarthritis, right shoulder, M51.36 - Other intervertebral disc degeneration, lumbar region Refilled levothyroxine 200 mcg PO DAILY 90 tabs 1RF 90 days cholecalciferol (vitamin D3) 50 mcg PO DAILY 90 caps 3RF 90 days levothyroxine 50 mcg PO DAILY 90 tabs 0RF 90 days Patient Instructions: - Follow up with executive relations specialist for shoulder pain evaluation. - Maintain diabetes medications as prescribed and monitor blood glucose levels closely. - Continue current dose of levothyroxine for hypothyroidism. - Take Vitamin D3 supplement weekly as discussed. - Monitor any side effects from medications and report any concerns. - Follow a balanced diet to manage weight and improve energy levels. - Seek care sooner if pain worsens or other new symptoms develop. - Keep scheduled follow-ups for timely health evaluations and adjustments.
== END 2024-04-09 17:47 | disposition home or self-care (01) ==
PROVIDERS: PCP Internal Medicine; Visit Provider Internal Medicine
DX: E11.65 Type 2 diabetes mellitus with hyperglycemia (principal); Z79.4 Long term (current) use of insulin; F32.0 Major depressive disorder, single episode, mild; K75.4 Autoimmune hepatitis; M06.00 Rheumatoid arthritis without rheumatoid factor, unspecified site; M19.011 Primary osteoarthritis, right shoulder; E03.9 Hypothyroidism, unspecified; E78.5 Hyperlipidemia, unspecified

== ENCOUNTER → 2024-04-09 16:36 | Outpatient (BNVA) | payer MEDICARE, SELFPAY | PROVIDERS: PCP Internal Medicine; Visit Provider Internal Medicine | DX: M19.011 Primary osteoarthritis, right shoulder (principal); E03.9 Hypothyroidism, unspecified; E11.65 Type 2 diabetes mellitus with hyperglycemia; F32.0 Major depressive disorder, single episode, mild; K75.4 Autoimmune hepatitis; E78.5 Hyperlipidemia, unspecified; M06.00 Rheumatoid arthritis without rheumatoid factor, unspecified site; Z79.4 Long term (current) use of insulin | CPT/HCPCS: 83036; 96127; 99212 ==

== ENCOUNTER 2024-04-11 15:00 | Outpatient (REF) | payer MEDICARE, SELFPAY ==
--- NOTE | ~2024-04-11 | XR_ITS ---
CLINICAL HISTORY: M79.672 - Pain in left foot 3 view left foot Comparison: None Findings: There is a 6 x 2 mm irregular calcific density abutting the plantar aspect of the dorsal calcaneus best seen on the lateral projection. 4 mm well corticated old avulsion fracture involves the posterior tibial malleolus best seen on the lateral projection. No dislocation. There are mild degenerative changes. No ankle effusion. No radiopaque foreign body. There are 5 mm achilles tendon and plantar tendon enthesophytes. IMPRESSION: 1. Age-indeterminate atypical small avulsion fracture involving the plantar aspect of the dorsal calcaneus versus nonspecific soft tissue calcification. 2. Small calcaneal spurs. This document has been electronically signed by: Megan Patricio DO on 04/12/2024 13:12:45
--- NOTE | ~2024-04-11 | XR_ITS ---
CLINICAL HISTORY: M89.8X2 - Other specified disorders of bone, upper arm 2 view right humerus Comparison: None Findings: Three films were obtained. No fractures or dislocations. No radiopaque foreign body. IMPRESSION: No acute fracture or intrinsic lesion in the humerus. This document has been electronically signed by: Megan Patricio DO on 04/12/2024 21:18:49
--- NOTE | ~2024-04-11 | XR_ITS ---
CLINICAL HISTORY: M25.521 - Pain in right elbow 3 view right elbow Comparison: None Findings: No acute fractures. Normal alignment. Mild narrowing and degenerative spurring in the ulnohumeral joint. No joint effusion. No radiopaque foreign body. Mild soft tissue swelling over the posterior olecranon with no evidence for triceps tendon enthesopathy. IMPRESSION: No acute fracture or dislocation. This document has been electronically signed by: Megan Patricio DO on 04/12/2024 21:14:41
== END 2024-04-11 15:01 | disposition home or self-care (01) ==
LOC: HO.XRAY 15:00
PROVIDERS: PCP Internal Medicine; Visit Provider Internal Medicine
DX: M79.672 Pain in left foot (principal); M25.521 Pain in right elbow; M89.8X2 Other specified disorders of bone, upper arm
CPT/HCPCS: 73060; 73070; 73620

== ENCOUNTER → 2024-04-11 15:06 | Outpatient (BNV) | payer MEDICARE, SELFPAY | PROVIDERS: PCP Internal Medicine; Visit Provider Radiology Diagnostic Radiology | DX: M25.521 Pain in right elbow (principal); M89.8X2 Other specified disorders of bone, upper arm; M79.672 Pain in left foot | CPT/HCPCS: 73060; 73080; 73630 ==

== ENCOUNTER 2024-05-02 14:40 | Outpatient (AMB) | payer MEDICARE, SELFPAY ==
--- NOTE | 2024-05-02 14:43 | MHC.OFFVIS ---
Vital Signs 05/02/24 14:48 Height 5 ft 7 in Weight 170 lb BMI 26.6 Intake Visit Reasons: New prob Displ fx of navicular [scaphoid] LT foot Intake Note: Cece is a 58 year old female who presents for a evaluation of her left foot pain. Patient reports that she doesn't remember having an injury. She states that her pain is more focused on the lateral aspect of the foot and underneath. Patient notices her pain is worse when she is walking. She has tried and failed icing, warm compresses, NSAIDs and Tylenol. Allergies gadobutrol [From GADAVIST] Allergy (Severe, Verified 05/02/24 14:47) ANAPHYLAXIS hydroxychloroquine [Plaquenil] Allergy (Intermediate, Verified 05/02/24 14:47) rash,facial swelling levofloxacin [From LEVAQUIN] Allergy (Intermediate, Verified 05/02/24 14:47) ITCHY RASH pregabalin [From LYRICA] Allergy (Intermediate, Verified 05/02/24 14:47) STOMACH UPSET, Swelling tramadol Allergy (Intermediate, Verified 05/02/24 14:47) abdominal pain azathioprine Adverse Reaction (Intermediate, Verified 05/02/24 14:47) Nausea and Vomiting insulin aspart [From Novolog U-100 Insulin aspart] Adverse Reaction (Intermediate, Verified 05/02/24 14:47) chills, shaking, sweating, weakness and tachycardia Qjxvfaj-JCI-XwK Reductase Inhibitor Adverse Reaction (Intermediate, Verified 05/02/24 14:47) transamimitis HPI HPI New prob Displ fx of navicular [scaphoid] LT foot: Details: 58-year-old female presents to the office today for pain in the left foot. She denies injury. She states the pain is along the lateral aspect of the foot which also goes into the heel along the bottom of the foot. She has pain when she is walking. No instability. Denies numbness or tingling. 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 Maternal Aunt Breast cancer Brother Essential hypertension Substance abuse Pure hypercholesterolemia Other Mental health problem Social History Household Members: None Housing: House Alcohol intake: never Patient Tobacco Use Status: Former Tobacco user Tobacco use type: Cigarette Cigarettes Per Day: 7 Years Smoked: 6 e-Cigarette/Vaping Use: Never Used Second Hand Smoke Exposure: No Advance Directives Date on File: 07/15/20 service: No Current occupational status: disabled Current occupation: right hand Cognitive needs: No Hearing needs: No Vision needs: No Female Reproductive History Menstrual Age of Menarche: 12 Review of Systems Const All systems reviewed & are unremarkable except as noted in HPI and below Physical Exam Vital Signs: BMI result Body Mass Index 26.6 Const General: cooperative and no acute distress Orientation/consciousness: patient oriented x3 Resp Effort & Inspection: normal respiratory effort and able to speak in complete sentences Cardio Peripheral pulses: Peripheral pulses 2+ throughout Neuro General: patient oriented x3 Extrem Other: Left foot is normal to inspection. She does have some swelling along the ATFL of the left ankle no tenderness to palpation. She has tenderness along the Of note she has no tenderness over the medial aspect of the foot. Results Reviewed Results Reviewed: IMPRESSION: 1. Age-indeterminate atypical small avulsion fracture involving the plantar aspect of the dorsal calcaneus versus nonspecific soft tissue calcification. 2. Small calcaneal spurs. Assessment & Plan Assessment & Plan (1) Peroneal tendinitis, left leg: Code(s): M76.72 - Peroneal tendinitis, left leg Category: Medical (2) Plantar fasciitis, left: Code(s): M72.2 - Plantar fascial fibromatosis Category: Medical Plan I did recommend a course of physical therapy to work on heel cord stretching and strengthening exercises. She was adamant that she was not interested in physical therapy and states she can perform these exercises on her own. I did provide her with a lace-up ankle brace to help with support with standing for long periods at a time. If she changes her mind about physical therapy she can contact our office and we will order this otherwise she can follow up as needed. Coding Level of Care Code New Pt Level 3 (36077) Complex EM visit Add On G2211 Diagnoses Peroneal tendinitis, left leg M76.72 Plantar fasciitis, left M72.2
[2024-05-02 14:48] VITALS: BMI 26.6
--- OUTSIDE RECORDS SUMMARY | 2024-05-02 15:48 | XMS_ITS | Referral Summary ---
Author Organization [facility] Address [address] [place] [address] Care Team Providers Care Orientation & Mobility Specialist Name Role Phone Becca Sprague Primary Care Provider [phone] Allergies Active Allergy Reactions Criticality Noted Date Comments Gadolinium-Containing Contrast Media Anaphylaxis High 06/03/2020 Levofloxacin Rash 06/03/2020 Pregabalin Swelling High 06/03/2020 Hydroxychloroquine Rash 06/03/2020 Medications zolpidem (AMBIEN) 10 mg tablet Take 10 mg by mouth nightly as needed for sleep. Active albuterol (PROAIR HFA,VENTOLIN HFA) 90 mcg inhaler Inhale 1-2 puffs by mouth every 6 hours as needed for wheezing or shortness of breath. Use with spacer. Active vitamin D3 (Vitamin D3) 25 mcg (1,000 unit) capsule Take 1 capsule by mouth daily. Active insulin glargine (Lantus U-100 Insulin) 100 units/mL solution injection Inject under the skin nightly. Active ergocalciferol (VITAMIN D2) 1,250 mcg (50,000 unit) capsule Take 50,000 Units by mouth once a week. Active ibuprofen (MOTRIN) 800 mg tablet Take 800 mg by mouth every 6 hours as needed for pain. Active lubiprostone (AMITIZA) capsule 8 mcg Take 24 mcg by mouth daily with breakfast. Active pantoprazole DR (PROTONIX) 20 mg tablet Take 1 tablet (20 mg total) by mouth 2 times a day. 60 tablet 1 1 Active nortriptyline (PAMELOR) 10 mg capsule TAKE 1 CAPSULE BY MOUTH EVERY DAY IN THE EVENING 30 capsule 2 1 Active ondansetron (ZOFRAN) 8 mg tablet SMARTSI Tablet(s) By Mouth Daily PRN 4 Active fluconazole (DIFLUCAN) 150 mg tablet SMARTSI Tablet(s) By Mouth Every 3 Days 4 Active mercaptopurine (PURINETHOL) 50 mg tablet SMARTSI Tablet(s) By Mouth Daily 4 Active rOPINIRole (REQUIP) 0.25 mg tablet SMARTSI Tablet(s) By Mouth Every Night 4 Active Freestyle Lite test strips DIRECTED 3 TIMES A DAY 4 Active alendronate (FOSAMAX) 70 mg tablet SMARTSI Tablet(s) By Mouth Once a Week 4 Active Freestyle lancets 28 gauge USE 1 LANCET THREE TIMES A DAY 3 Active folic acid (FOLVITE) 1 mg tablet SMARTSI Tablet(s) By Mouth Daily 4 Active BD Alivia 2nd Gen Pen Needle 4 mm x 32 g DIRECTED 4 TIMES A DAY 3 Active Tresiba FlexTouch U-200 200 unit/mL (3 mL) insulin pen SMARTSI Unit(s) SUB-Q 4 Active ibuprofen (MOTRIN) 600 mg tablet SMARTSI Tablet(s) By Mouth 3 Times Daily 4 Active oxyCODONE IR (ROXICODONE) 10 mg tablet SMARTSI Tablet(s) By Mouth Every 8 Hours PRN 4 Active omeprazole (PriLOSEC) 20 mg capsule SMARTSI Capsule(s) By Mouth Daily 3 Active levothyroxine (SYNTHROID, LEVOTHROID) 200 mcg tablet SMARTSI Tablet(s) By Mouth Daily 4 Active levothyroxine (SYNTHROID, LEVOTHROID) 50 mcg tablet SMARTSI Tablet(s) By Mouth Daily 4 Active cholecalciferol (VITAMIN D3) 2,000 unit capsule SMARTSI Capsule(s) By Mouth Daily 4 Active Active Problems No known active problems Social History Tobacco Use Types Packs/Day Years Used Date Smoking Tobacco: Never Smokeless Tobacco: Never Alcohol Use Standard Drinks/Week Comments Never 0 (1 standard drink = 0.6 oz pur e alcohol) Comments Unknown Sex and Gender Information Value Date Recorded Sex Assigned at Female 10/26/2023 3:34 PM EDT Legal Sex Female 3:19 PM EDT Gender Identity Female 10/26/2023 3:34 PM EDT Sexual Orientation Straight 10/26/2023 3: 34 PM EDT Last Filed Vital Signs Vital Sign Reading Time Taken Comments Blood Pressure 127/78 09/15/2023 1:57 PM EDT Pulse 62 09/15/2023 1:57 PM EDT Temperature 36.9 ??C (98.4 ??F) 09/15/2023 1:57 PM ED T Respiratory Rate 18 09/15/2023 1:57 PM EDT Oxygen Saturation 97% 09/15/2023 1:57 PM EDT Inhaled Oxygen Concentration - - Weight 82.4 kg (181 lb 10.5 oz) 09/15/2023 1:57 PM EDT Height 170.2 cm (5' 7 ) 06/03/2020 12:2 7 PM EST Body Mass Index 28.45 06/03/2020 12:27 PM EST Plan of Treatment Upcoming Encounters Date Type Department Care Team (Late st Contact Info) Description 05/29/2024 10:30 AM EST Telehealth [facility] [address] [place] [address] [phone] Amber Islas MD [address] [place] [phone] Procedures * Due to [place] uniRow law, this organization might not be sharing negative HIV tests. Procedure Name Priority Date/Time Associated Diagnosis Comments HEPATITIS C ANTIBODY W/REFLEX TO HCV RNA, QUANTITATIVE PCR Routine 09/15/2023 3:48 PM EDT Chronic autoimmune hepatitis (CMS/HCC) (HCC) from Last 3 Months or Most Recently Relevant to Health Maintenance Results * Due to [place] uniRow law, this organization might not be sharing negative HIV tests. * Hepatitis C Antibody w/Reflex to PCR (09/15/2023 3:48 PM EDT) Hepatitis C Antibody NON-REACT MICHEAL NON-REACT MICHEAL 09/15/2023 10:45 PM EDT [facility] Comment: HCV antibody was non-reactive. There is no laboratory evidence of HCV infection. In most cases, no further action is required. However, if recent HCV exposure is suspected, a test for HCV RNA (test code 89746) is suggested. For additional information please refer to http://education.PonoMusic/faq/HEB43u4 (This link is being provided for informational/ educational purposes only.) Blood Structure of peripheral vein / Unknown Venipuncture / Unknown 09/15/2023 3:48 PM EDT 09/15/2023 3:48 PM EDT Narrative [facility] - 09/15/2023 10:45 PM EDT [facility] Received Date: Amber Islas MD LAB BLOOD ORDERABLES Final Resul t [facility] [address] [facility] 3rd Floor, [place] [address], [place] [phone] [employer] [facility] [address] [facility] 3rd Floor, [place] [address], [place] [phone] from Last 3 Months or Most Recently Relevant to Health Maintenance Insurance [facility] Advance Directives Healthcare Agents on File Name Relationship Healthcare Agent Relationshi p Communication Milena Avila Daughter Alternate Health Care Age nt Care Teams Orientation & Mobility Specialist Relationship Specialty Start Date End Date Becca Sprague [address] [place] [address] [place] [address] PCP - General Internal Medicine 08/16/19
--- OUTSIDE RECORDS SUMMARY | 2024-05-02 15:48 | XMS_ITS | Clinical Summary ---
Author Organization [facility] Address [address] [place] [address] Care Team Providers Care Criminal Defense Lawyer Name Role Phone Becca Sprague Primary Care Provider [phone] Allergies Active Allergy Reactions Criticality Noted Date [...] Info) Description 05/29/2024 10:30 AM EST Telehealth [facility] Transplant Services [address] [place], [place] [id number] Amber Islas MD [address] [place] [address] Health Maintenance Due Date Last Done Comments Cervical Cancer Screening 1965 Cologuard 1965 FOBT / Fit Test 1965 HIV Screening 1965 HPV and Pap Smear 1965 Pap Smear 1965 Sigmoidoscopy 1965 Pneumococcal Vaccine: Pediat neto (0-5 Years) and At-Risk Patients (6-64 Years) (1 of 2 - PCV) 06/05/1971 Zoster Vaccines (1 of 2) 06/05/2015 Mammogram 07/26/2018 07/26/2016, 06/27, 05/27/2014, Additional history exists Hepatitis B Vaccines (3 of 3 - Hep B Twinrix 3-dose series) 12/01/2022 07/01/2022, 12/31/2021 COVID-19 Vaccine (3 - 2023-2 5 season) 2023 09/13/2020, 08/23/2020 Influenza Vaccine (#1) 2023 , 01/15/2021, 02/12/2020, Additional history exists Alcohol/Substance Use Screening 03/28/2024 Depression Screening and Follow-Up 03/28/2024 Social Drivers of Health Jessica ual Screening 03/28/2024 Colon Cancer Screening 10/20/2025 Colonoscopy 10/20/2025 10/21/2015 DTaP,Tdap,and Td Vaccines (2 - Td or Tdap) 05/19/2026 05/19/2016 RSV Vaccine (60+ years old a nd patients) (1 - 1-dose 75+ series) 2040 Tobacco Screening 03/28/2042 09/15/2023 Hepatitis C Screening Completed 09/15/2023 Procedures * Due to [place] Akt[place] law, this organization might not be sharing negative HIV tests. Procedure Name Priority Date/Time Associated Diagnosis Comments HEPATITIS C ANTIBODY W/REFLEX TO HCV RNA, QUANTITATIVE PCR Routine 09/15/2023 3:48 PM EDT Chronic autoimmune hepatitis (CMS/HCC) (HCC) from Last 3 Months or Most Recently Relevant to Health Maintenance Results * Due to [place] law, this organization might not be sharing negative HIV tests. * Hepatitis C Antibody w/Reflex to PCR (09/15/2023 3:48 PM EDT) Hepatitis C Antibody NON-REACT MICHEAL NON-REACT MICHEAL 09/15/2023 10:45 PM EDT [facility] Comment: HCV antibody was non-reactive. There is no laboratory evidence of HCV infection. In most cases, no further action is required. However, if recent HCV exposure is suspected, a test for HCV RNA (test code 99602) is suggested. For additional information please refer to http://education.Veam Video/faq/RZN83e4 (This link is being provided for informational/ educational purposes only.) Blood Structure of peripheral vein / Unknown Venipuncture / Unknown 09/15/2023 3:48 PM EDT 09/15/2023 3:48 PM EDT Narrative [facility] - 09/15/2023 10:45 PM EDT [facility] Received Date: us Amber Islas MD LAB BLOOD ORDERABLES Final Resul t [facility] [address] [facility] [address], [place] [address], [employer] [facility] [address] [facility] [address], [place] [address], [place] [phone] from Last 3 Months or Most Recently Relevant to Health Maintenance Insurance [facility] Advance Directives Healthcare Agents on File Name Relationship Healthcare Agent Relationshi p Communication Milena Avila Daughter Alternate Health Care Age nt Care Teams Criminal Defense Lawyer Relationship Specialty Start Date End Date Becca Sprague [address] [place] [address] [place] [address] PCP - General Internal Medicine 08/16/19
--- OUTSIDE RECORDS SUMMARY | 2024-05-02 15:48 | XMS_ITS | Clinical Summary ---
Author Organization [employer] Address [address] [facility] 7[address] [place] [address] Care Team Providers Care Movie Stunt Performer Name Role Phone Unavailable Primary Care Provider Unavailabl e Allergies Active Allergy Reactions Criticality Noted Date Comments Gadolinium Anaphylaxis High 06/03/2020 Hydroxychloroquine Rash Low 06/03/2020 Iodinated Contrast Media 01/13/2022 Levofloxacin Rash Low 06/03/2020 Pregabalin Swelling High 06/03/2020 Tramadol 01/13/2022 Medications alendronate (Fosamax) 70 MG tablet SMARTSI Tablet(s) By Mouth Once a Week 4 Active D2000 Ultra Strength 50 MCG (2000 UT) capsule SMARTSI Capsule(s) By Mouth Daily 4 Active Jardiance 10 MG Take 10 mg by mouth Once per day. 4 Active fluconazole (Diflucan) 150 MG tablet SMARTSI Tablet(s) By Mouth Every 3 Days 4 Active HYDROmorphone (Dilaudid) 4 MG tablet TAKE 1/2-1 TABLET BY MOUTH EVERY 6 HOURS NEEDED FOR PAIN 4 Active folic acid (Folvite) 1 MG tablet SMARTSI Tablet(s) By Mouth Daily 4 Active insulin glargine (Lantus) 100 UNIT/ML injection Inject under the skin at bedtime. Active levothyroxine (Synthroid, Levoxyl) 200 MCG tablet SMARTSI Tablet(s) By Mouth Daily 4 Active lubiprostone (Amitiza) 8 MCG capsule Take 24 mcg by mouth with breakfast. Active mercaptopurine (Purinethol) 50 MG tablet SMARTSI Tablet(s) By Mouth Daily 4 Active nortriptyline (Pamelor) 10 MG capsule TAKE 1 CAPSULE BY MOUTH EVERY DAY IN THE EVENING 1 Active omeprazole (PriLOSEC) [address] capsule SMARTSI Capsule(s) By Mouth Daily 3 Active ondansetron (Zofran) 8 MG tablet SMARTSI Tablet(s) By Mouth Daily PRN 4 Active oxyCODONE (Roxicodone) 10 MG immediate release tablet TAKE 1 TABLET ORALLY EVERY 8 HOURS NEEDED FOR PAIN FOR 30 DAYS PARTIAL FILL UPON PATIENT REQUEST. 4 Active pantoprazole (ProtoNix) 20 MG EC tablet Take 20 mg by mouth 2 times daily. 1 Active predniSONE (Deltasone) 10 MG tablet PLEASE SEE ATTACHED FOR DETAILED DIRECTIONS Active rOPINIRole (Requip) 0.25 MG tablet SMARTSI Tablet(s) By Mouth Every Night 4 Active rosuvastatin (Crestor) 10 MG tablet TAKE 1 TABLET ORALLY DAILY FOR 90 DAYS 4 Active Ozempic, 0.25 or 0.5 MG/DOSE, 2 MG/3ML solution pen-injector 4 Active zolpidem (Ambien) 10 MG tablet Take 10 mg by mouth if needed at bedtime. Active amoxicillin (Amoxil) 500 MG capsule Take 4 tabs (2 grams) 1 hour prior to dental procedure 4 capsule 3 4 Active Additional Information Patient not taking.Reported on 01/30/2024 ibuprofen 600 MG tablet Take 1 tablet (600 mg) by mouth every 6 (six) hours if needed for mild pain for up to 20 doses. 20 tablet 4 Active acetaminophen (Tylenol) 500 MG tablet Take 1 tablet (500 mg) by mouth every 6 (six) hours if needed for mild pain for up to 20 doses. 20 tablet 4 Active Active Problems Problem Noted Date Diagnosed Date Periodontal disease 01/05/2023 Dental caries 01/05/2023 Encounters Date Type Department Care Team Description 04/04/2024 2:00 PM EST Office Visit [facility] [address] [place] [address] Cortez, Emily Dental plaque (Primary Dx); Dental calculus; Periodontal disease from Last 3 Months Social History Tobacco Use Types Packs/Day Years Used Date Smoking Tobacco: Never Passive Smoke Exposure: Never Smokeless Tobacco: Never Tobacco Cessation:Counseling Given: No Alcohol Use Standard Drinks/Week Comments Defer 0 (1 standard drink = 0.6 oz pur e alcohol) Comments Unknown Sex and Gender Information Value Date Recorded Sex Assigned at Female 01/25/2022 10:39 AM EDT Legal Sex Female 10:39 AM EDT Gender Identity Female 01/25/2022 10:39 AM EDT Sexual Orientation Straight 01/25/2022 10 :39 AM EDT Last Filed Vital Signs Vital Sign Reading Time Taken Comments Blood Pressure 136/82 04/04/2024 2:12 PM EST Pulse - - Temperature - - Respiratory Rate - - Oxygen Saturation - - Inhaled Oxygen Concentration - - Weight - - Height - - Body Mass Index - - Plan of Treatment Upcoming Encounters Date Type Department Care Team (Late st Contact Info) Description 05/23/2024 2:00 PM EST Office Visit [facility] [address] [place] [address] Emily Cortez Health Maintenance Due Date Last Done Comments CT Colonography 1965 Colonoscopy 1965 Colorectal Cancer Screening 1965 Depression Screening 1965 FIT DNA/Cologuard 1965 FIT 1965 FOBT 1965 HIV Screening 1965 Lipid Panel 1965 SDOH Screening 1965 Sigmoidoscopy 1965 Alcohol/Substance Use Screening 1977 Hepatitis C Screening 06/05/1983 Pap Smear 1986 Cervical Cancer Screening 06/05/1995 HPV/Cotest 06/05/1995 Mammogram 2005 Pneumococcal Vaccine: 50+ Years (1 of 1 - PCV) 06/05/2015 Zoster Vaccines (1 of 2) 06/05/2015 Hepatitis A Vaccines (3 of 3 - Hep A Twinrix risk 3-dose series) 12/01/2022 07/01/2022, 12/31/2021 Hepatitis B Vaccines (3 of 3 - Hep B Twinrix 3-dose series) 12/01/2022 07/01/2022, 12/31/2021 COVID-19 Vaccine ( season) 2023 09/13/2020, 08/23/2020 Influenza Vaccine (#1) 2023 , 01/15/2021, 02/12/2020, Additional history exists Dental Oral Exam 07/30/2024 01/30/2024, 01/05/2023 Dental Prophylaxis 07/30/2024 01/30/2024 Dental X-Ray: Bitewings 11/03/2024 11/03/2023, 01/05 Tobacco Screening 04/04/2025 04/04/2024 Dental X-Ray: Full Mouth 01/06/2026 01/05/2023, 11/26 DTaP/Tdap/Td Vaccines (2 - Td or Tdap) 05/19/2026 05/19/2016 RSV Patients and Patients Aged 60 years or older (1 - 1-dose 75+ series) 2040 HIB Vaccines Aged Out No longer eligi ble based on patient's age to complete this topic HPV Vaccines Aged Out No longer eligi ble based on patient's age to complete this topic IPV Vaccines Aged Out No longer eligi ble based on patient's age to complete this topic Meningococcal Vaccine Aged Out No benigno cole eligible based on patient's age to complete this topic Pneumococcal Vaccine: Pediatrics (0 to 5 Years) and At-Risk Patients (6 to 49) Years) Aged Out No longer eligible based on patient's age to complete this topic RSV under 20 months Aged Out No longe r eligible based on patient's age to complete this topic Rotavirus Vaccines Aged Out No longer eligible based on patient's age to complete this topic Procedures Procedure Name Priority Date/Time Associated Diagnosis Comments ADJUNCTIVE GENERAL SERVICES - PROFESSIONAL VISITS - CASE PRESENTATION, SUBSEQUENT TO DETAILED AND EXTENSIVE TREATMENT PLANNING Routine 04/04/2024 2:00 PM EST ORAL HYGIENE INSTRUCTIONS Routine 2024 2:00 PM EST Dental plaque Dental calculus Periodontal disease LL PERIODONTAL SCALING AND ROOT PLANING - 4 OR MORE TEETH PER QUADRANT Routine 04/04/2024 2:00 PM EST Dental plaque Dental calculus Periodontal disease PROPHYLAXIS - ADULT Routine 01/30/2024 3 :00 PM EST Dental calculus Dental plaque Tartar deposits on teeth Periodontal disease PERIODIC ORAL EVALUATION - ESTABLISHED PATIENT Routine 01/30/2024 3:00 PM EST BITEWING - SINGLE RADIOGRAPHIC IMAGE Routine 11/03/2023 1:00 PM EDT DIAGNOSTIC - DIAGNOSTIC IMAGING - INTRAORAL - COMPREHENSIVE SERIES OF RADIOGRAPHIC IMAGES Routine 01/05/2023 2:30 PM EDT from Last 3 Months or Most Recently Relevant to Health Maintenance Insurance [facility] MEDICAID STAND ADULT
--- OUTSIDE RECORDS SUMMARY | 2024-05-02 15:48 | XMS_ITS | Encounter Summary ---
Author Organization [employer] Address [address] [facility] [address] [place] [address] Care Team Providers Care Gas Welder Apprentice Name Role Phone Unavailable Primary Care Provider Unavailabl e Reason for Visit * Reason Comments Scaling And Root Planing LL Encounter Details Date Type Department Care Team ([facility] st Contact Info) Description 04/04/2024 2:00 PM EST Office Visit [facility] [address] [place] [address] mEily Cortez Dental plaque (Primary Dx); Dental calculus; Periodontal disease Social History Tobacco Use Types Packs/Day Years Used Date Smoking Tobacco: Never Passive Smoke Exposure: Never Smokeless Tobacco: Never Alcohol Use Standard Drinks/Week Comments Defer 0 (1 standard drink = 0.6 oz pur e alcohol) Comments Unknown Sex and Gender Information Value Date Recorded Sex Assigned at Female 01/25/2022 10:39 AM EDT Legal Sex Female 10:39 AM EDT Gender Identity Female 01/25/2022 10:39 AM EDT Sexual Orientation Straight 01/25/2022 10 :39 AM EDT documented as of this encounter Last Filed Vital Signs Vital Sign Reading Time Taken Comments Blood Pressure 136/82 04/04/2024 2:12 PM EST Pulse - - Temperature - - Respiratory Rate - - Oxygen Saturation - - Inhaled Oxygen Concentration - - Weight - - Height - - Body Mass Index - - documented in this encounter Progress Notes * Emily Cortez - 04/04/2024 2:00 PM EST Patient ID: Cece Conley is a 58 y.o. female. Time Out: Timeout Date: 04/04/24, Timeout Time: 1410 (Dental SRP Adult) Location: [facility] Tooth: LL Procedure: Scaling and Root Planing Verified the above with patient, assistant surveyor, and provider. Confirmed via patient's chart, intraorally and by radiographs. Property Disposal Manager: not applicable Medical Hx: Vitals: Blood pressure 136/82. Medications, Med Hx reviewed with patient and updated in chart. Treatment Provided Dental procedures in this visit [id number] - PERIODONTAL SCALING AND ROOT PLANING - 4 OR MORE TEETH PER QUADRANT LL (Completed) Service provider: Emily Cortez Billing provider: Amaury Duarte DMD [id number] - ORAL HYGIENE INSTRUCTIONS (Completed) Service provider: Emily Cortez Billing provider: Amaury Duarte DMD [id number] - CASE PRESENTATION, DETAILED AND EXTENSIVE TREATMENT PLANNING (Completed) Service provider: Emily Cortez Billing provider: Amaury Duarte DMD Topical: 20% Benzocaine Anesthesia: 0 Number of Cartridges: 0 Injection Type: N/A Confirmed profound anesthesia. Oral Cancer Screening: No lesions Head/Neck Exam: No Lesions Instruments Used: Ultrasonic Scalers, Hand Scalers, and floss Fluoride: N/A Calculus: Moderate, Generalized, and Subgingival Plaque: Moderate and Generalized Stain: Moderate and Generalized Bleeding: Moderate and Generalized Gingiva: Recession- generalized and Erythematous OH: Fair Oral hygiene instructions provided to patient including brushing technique and flossing. Recommendations: [place] two times daily, modified walsh technique, Floss daily, Electric toothbrush, Soft bristle toothbrush, [place] Tongue, Anti-sensitivity toothpaste Recall Frequency: 6 mo NV: Upon insurance approval Hygienist: Emily Cortez RDH documented in this encounter Plan of Treatment Upcoming Encounters Date Type Department Care Team (Late st Contact Info) Description 05/23/2024 2:00 PM EST Office Visit [facility] [address] [place] [address] Emily Cortez documented as of this encounter Procedures Procedure Name Priority Date/Time Associated Diagnosis Comments LL PERIODONTAL SCALING AND ROOT PLANING - 4 OR MORE TEETH PER QUADRANT Routine 04/04/2024 2:00 PM EST Dental plaque Dental calculus Periodontal disease ORAL HYGIENE INSTRUCTIONS Routine 04/04/2024 2:00 PM EST Dental plaque Dental calculus Periodontal disease ADJUNCTIVE GENERAL SERVICES - PROFESSIONAL VISITS - CASE PRESENTATION, SUBSEQUENT TO DETAILED AND EXTENSIVE TREATMENT PLANNING Routine 04/04/2024 2:00 PM EST documented in this encounter Visit Diagnoses Diagnosis Dental plaque- Primary Accretions on teeth Dental calculus Accretions on teeth Periodontal disease Unspecified gingival and periodontal disease documented in this encounter
== END 2024-05-02 15:05 | disposition home or self-care (01) ==
PROVIDERS: PCP Internal Medicine; Visit Provider Physician Assistant
DX: M76.72 Peroneal tendinitis, left leg (principal); M72.2 Plantar fascial fibromatosis
CPT/HCPCS: 99213

== ENCOUNTER → 2024-05-02 14:40 | Outpatient (BNVA) | payer MEDICARE, SELFPAY | PROVIDERS: PCP Internal Medicine; Visit Provider Physician Assistant | DX: M76.72 Peroneal tendinitis, left leg (principal); M72.2 Plantar fascial fibromatosis | CPT/HCPCS: 99212 ==

== ENCOUNTER 2024-05-23 13:20 | Outpatient (AMB) | payer MEDICARE, SELFPAY ==
[2024-05-23 13:31] VITALS: BMI 26.6
--- NOTE | 2024-05-23 13:31 | A.OFFVIS_ITS ---
Vital Signs 05/23/24 13:31 Height 5 ft 7 in Weight 170 lb BMI 26.6 Intake Visit Reasons: Right shoulder discomfort Intake Note: Cece is a 58 year old right hand dominant female who presents with complaints of intermittent discomfort along the lateral aspect of her right shoulder. She describes her discomfort as achy in nature. She denies any weakness. The patient states that her symptoms have been present for the last year. She continues to take oxycodone and ibuprofen for her fibromyalgia. The medicines relieve some of her shoulder pain as well. She denies any numbness or tingling in either upper extremity. know: yes MRI/PT/INJ: ??? Hx: no injury, no sx Allergies gadobutrol [From GADAVIST] Allergy (Severe, Verified 05/23/24 13:31) ANAPHYLAXIS hydroxychloroquine [Plaquenil] Allergy (Intermediate, Verified 05/23/24 13:31) rash,facial swelling levofloxacin [From LEVAQUIN] Allergy (Intermediate, Verified 05/23/24 13:31) ITCHY RASH pregabalin [From LYRICA] Allergy (Intermediate, Verified 05/23/24 13:31) STOMACH UPSET, Swelling tramadol Allergy (Intermediate, Verified 05/23/24 13:31) abdominal pain azathioprine Adverse Reaction (Intermediate, Verified 05/23/24 13:31) Nausea and Vomiting insulin aspart [From Novolog U-100 Insulin aspart] Adverse Reaction (Intermediate, Verified 05/23/24 13:31) chills, shaking, sweating, weakness and tachycardia Alktlkx-SBI-DgE Reductase Inhibitor Adverse Reaction (Intermediate, Verified 05/23/24 13:31) transamimitis Medication List - Last Reconciled 05/23/24 by Dominick Doyle MD albuterol sulfate 90 mcg/actuation 2 puffs inhalation Q6H PRN 30 days alendronate 70 mg PO QWEEK 90 days [bath bench with back As directed] [bed rails As directed] blood sugar diagnostic (FreeStyle Lite Strips) As directed 3 times a day blood-glucose meter (FreeStyle Lite Meter kit) As directed cholecalciferol (vitamin D3) 50 mcg PO DAILY 90 days docusate sodium (Colace) 100 mg PO BID empagliflozin (Jardiance) 10 mg PO DAILY 30 days ergocalciferol (vitamin D2) 1,250 mcg PO WE 90 days famotidine 20 mg PO BEDTIME 90 days flash glucose scanning reader (FreeStyle Liza 2 [place]) As directed flash glucose sensor (FreeStyle Liza 2 Sensor kit) As directed -change every 14 days ibuprofen 600 mg PO TID PRN 30 days insulin degludec (Tresiba FlexTouch U-200 insulin) 175 units subcut BID lancets (FreeStyle Lancets) Use 1 lancet three times a day levothyroxine 200 mcg PO DAILY 90 days levothyroxine 50 mcg PO DAILY 90 days loratadine 10 mg PO DAILY 90 days mercaptopurine 50 mg PO DAILY ondansetron HCl 8 mg PO DAILY PRN 30 days oxycodone 10 mg PO Q8H PRN 30 days pen needle, diabetic (BD Ultra-Fine Alivia Pen Needle) As directed 4x/day ropinirole 0.25 mg PO BEDTIME PRN rosuvastatin 10 mg PO DAILY 90 days semaglutide (Ozempic) 0.25 mg (0.368 mL) subcut WE 4 weeks underpads (Bed Underpads) As directed zolpidem 10 mg PO BEDTIME 30 days PFSH Medical History Pulmonary emphysema Hypothyroidism Type 2 diabetes mellitus Osteoarthritis of hand, left Chronic constipation Hypoactive bowel sounds Hand numbness Autoimmune thyroiditis Abdominal pain Inflammatory arthritis Breast mass, right Lung cyst Bilateral hand numbness Neck pain Dyslipidemia Post-surgical hypothyroidism Diabetic polyneuropathy associated with type 2 diabetes mellitus MCC (current) use of insulin Chronic idiopathic constipation Low vitamin D level Weight loss GERD (gastroesophageal reflux disease) Diabetes type 2, uncontrolled Fibromyalgia Insomnia Surgical History Hx of arthroscopy of left knee History of liver biopsy Hx of removal of cyst History of hysterectomy History of thyroidectomy, total History of esophagogastroduodenoscopy (EGD) Hx of colonoscopy (1998) Family History Father Status post liver transplant, biliary anastomotic size mismatch Brother Cardiac arrest Mother No problems noted. Maternal Aunt Breast cancer Brother Essential hypertension Substance abuse Pure hypercholesterolemia Other Mental health problem Social History Household Members: None Housing: House Alcohol intake: never Patient Tobacco Use Status: Former Tobacco user Tobacco use type: Cigarette Cigarettes Per Day: 7 Years Smoked: 6 e-Cigarette/Vaping Use: Never Used Second Hand Smoke Exposure: No Advance Directives Date on File: 07/15/20 service: No Current occupational status: disabled Current occupation: right hand Cognitive needs: No Hearing needs: No Vision needs: No Female Reproductive History Menstrual Age of Menarche: 12 Physical Exam Vital Signs: BMI result Body Mass Index 26.6 Const Other: Well-nourished well-developed very friendly female awake alert and oriented x3 in no acute distress Extrem Other: right shoulder examination shows full range of motion when compared to her left shoulder, positive impingement signs, tenderness over her acromioclavicular joint, 5/5 strength with supraspinatus testing, no instability Results Reviewed Results Reviewed: x-rays of the patient's right shoulder taken previously show moderate acromioclavicular joint narrowing, a type 2 acromion, no acute bony abnormalities Assessment & Plan Assessment & Plan (1) Right shoulder pain: Code(s): M25.511 - Pain in right shoulder Category: Medical Plan Ms. Conley Presents with intermittent discomfort in her right shoulder due to impingement syndrome. I had a lengthy discussion with the patient regarding treatment options. At this point the patient's symptoms are tolerable to her. She will continue with her home stretching program to prevent stiffness. The do's and don'ts of lifting discussed at length with the patient. She will follow up with me on an as-needed basis should her symptoms worsen in any way. Feel free to call me at any time should questions regarding her orthopedic management arise. I spent 22 minutes in reviewing the patient's records and imaging studies, seeing the patient and documenting in the medical record. Coding Level of Care Code Est Pt Level 3 (16474) Complex EM visit Add On G2211 Diagnoses Right shoulder pain M25.511
--- OUTSIDE RECORDS SUMMARY | 2024-05-23 16:18 | XMS_ITS | Clinical Summary ---
Author Organization [employer] Address [address] [facility] [address] [place] [address] Care Team Providers Care Auto Mechanics Teacher Name Role Phone Unavailable Primary Care Provider [...] Description 04/04/2024 2:00 PM EST Office Visit [facility] [address] [place] [address] Cortez, Emily Dental plaque (Primary [...] Care Team (Late st Contact Info) Description 06/01/2024 1:30 PM EST Office Visit [facility] [address], [place] [id number] Amaury Duarte, [place] [address] [place] [address] Health Maintenance Due Date Last Done Comments [...] 12/01/2022 07/01/2022, 12/31/2021 COVID-19 Vaccine (3 - season) 2023 09/13/2020, 08/23/2020 Influenza Vaccine (#1) [...] Procedure Name Priority Date/Time Associated Diagnosis Comments CASE PRESENTATION, DETAILED AND EXTENSIVE TREATMENT PLANNING Routine 04/04/2024 2:00 PM EST ORAL HYGIENE INSTRUCTIONS Routine 04/04/2024 2:00 PM [...] RADIOGRAPHIC IMAGE Routine 11/03/2023 1:00 PM EDT INTRAORAL - COMPLETE SERIES OF RADIOGRAPHIC IMAGES Routine 01/05/2023 2:30 PM EDT from Last 3 Months or Most Recently Relevant to Health Maintenance Insurance [facility] MEDICAID STAND ADULT Member Subscriber Plan / Payer (Ef fective 2022-Present) Name:ConleyDai marrufon Relation to Subscriber:Self Name:Jarvis Cece Payer ID:Not on file Group ID:Not on file Type:Not on file Address: [place] [id number]
--- OUTSIDE RECORDS SUMMARY | 2024-05-23 16:18 | XMS_ITS | Referral Summary ---
Author Organization [facility] Address [address] [place] [address] Care Team Providers Care Clinical Lab Clerk Name Role Phone Becca Sprague Primary Care Provider [phone] Allergies Active Allergy Reactions Criticality Noted Date [...] 06/03/2020 12:27 PM EST Plan of Treatment Not on file Procedures * Due to [place] [employer] law, this organization might not be sharing negative HIV tests. Procedure Name Priority Date/Time Associated Diagnosis Comments HEPATITIS C ANTIBODY W/REFLEX TO HCV RNA, QUANTITATIVE PCR Routine 09/15/2023 3:48 PM EDT Chronic autoimmune hepatitis (CMS/HCC) (HCC) from Last 3 Months or Most Recently Relevant to Health Maintenance Results * Due to [place] law, this organization might not be sharing negative HIV tests. * Hepatitis C Antibody w/Reflex to PCR (09/15/2023 3:48 PM EDT) Hepatitis C Antibody NON-REACT MICHEAL NON-REACT MICHEAL 09/15/2023 10:45 PM EDT [employer] Comment: HCV antibody was non-reactive. There is no laboratory evidence of HCV infection. In most cases, no further action is required. However, if recent HCV exposure is suspected, a test for HCV RNA (test code 71362) is suggested. For additional information please refer to http://education.[facility]/faq/YJD31a3 (This link is being provided for informational/ educational purposes only.) Blood Structure of peripheral vein / Unknown Venipuncture / Unknown 09/15/2023 3:48 PM EDT 09/15/2023 3:48 PM EDT Narrative [facility] - 09/15/2023 10:45 PM EDT [facility] Received Date: us Amber Islas MD LAB BLOOD ORDERABLES Final Resul t [facility] [address] [facility] 3rd [address], [place] [address], [place] [phone] [employer] [facility] [address] [facility] 3rd Floor, [place] [address], [place] [phone] from Last 3 Months or Most Recently Relevant to Health Maintenance Insurance [facility] [place] [address] Advance Directives Healthcare Agents on File Name Relationship Healthcare Agent Relationshi p Communication Milena Avila Daughter Alternate Health Care Age nt Care Teams Clinical Lab Clerk Relationship Specialty Start Date End Date Becca Sprague [address] [place] [address] PCP - General Internal Medicine 08/16/19
--- OUTSIDE RECORDS SUMMARY | 2024-05-23 16:18 | XMS_ITS | Clinical Summary ---
Author Organization [facility] Address [address] [place] [address] Care Team Providers Care Relay Mechanic Name Role Phone Becca Sprague Primary Care Provider [phone] Allergies Active Allergy Reactions Criticality Noted Date [...] 06/03/2020 12:27 PM EST Plan of Treatment Health Maintenance Due Date Last Done Comments Cervical Cancer Screening 1965 Cologuard 1965 FOBT / Fit Test 1965 HIV Screening 1965 HPV and Pap Smear 1965 Pap Smear 1965 Sigmoidoscopy 1965 Pneumococcal Vaccine: 50+ Ye ars (1 of 2 - PCV) 1984 Zoster Vaccines (1 of 2) 06/05/2015 Mammogram [...] Screening Completed 09/15/2023 Procedures * Due to [place] [employer] law, this organization might not be sharing negative HIV tests. Procedure Name Priority Date/Time Associated Diagnosis Comments HEPATITIS C ANTIBODY W/REFLEX TO HCV RNA, QUANTITATIVE PCR Routine 09/15/2023 3:48 PM EDT Chronic autoimmune hepatitis (CMS/HCC) (HCC) from Last 3 Months or Most Recently Relevant to Health Maintenance Results * Due to [place] [employer] law, this organization might not be sharing negative HIV tests. * Hepatitis C Antibody w/Reflex to PCR (09/15/2023 3:48 PM EDT) Hepatitis C Antibody NON-REACT MICHEAL NON-REACT MICHEAL 09/15/2023 10:45 PM EDT [employer] [facility] Comment: HCV antibody was non-reactive. There is no laboratory evidence of HCV infection. In most cases, no further action is required. However, if recent HCV exposure is suspected, a test for HCV RNA (test code 03571) is suggested. For additional information please refer to http://education.[employer]ru/faq/FSE29d8 (This link is being provided for informational/ educational purposes only.) Blood Structure of peripheral vein / Unknown Venipuncture / Unknown 09/15/2023 3:48 PM EDT 09/15/2023 3:48 PM EDT Narrative [facility] [place] - 09/15/2023 10:45 PM EDT [facility] Received Date: Amber Islas MD LAB BLOOD ORDERABLES Final Resul t [facility] [address], [place] [address], [place] [phone] [employer] [facility] [address], [address] [facility] [address], [place] [phone] from Last 3 Months or Most Recently Relevant to Health Maintenance Insurance [facility] Advance Directives Healthcare Agents on File Name Relationship Healthcare Agent Relationshi p Communication Milena Lawquez Daughter Alternate Health Care Age nt Care Teams Relay Mechanic Relationship Specialty Start Date End Date Becca Sprague [address] [place] [address] [place] [address] PCP - General Internal Medicine 08/16/19
== END 2024-05-23 13:58 | disposition home or self-care (01) ==
PROVIDERS: PCP Internal Medicine; Visit Provider Orthopaedic Surgery
DX: M25.511 Pain in right shoulder (principal)
CPT/HCPCS: 99213

== ENCOUNTER → 2024-05-23 13:20 | Outpatient (BNVA) | payer MEDICARE, SELFPAY | PROVIDERS: PCP Internal Medicine; Visit Provider Orthopaedic Surgery | DX: M75.41 Impingement syndrome of right shoulder (principal) | CPT/HCPCS: 99212 ==

== ENCOUNTER 2024-06-13 14:50 | Outpatient (AMB) | payer MEDICARE, SELFPAY ==
[2024-06-13 14:52] VITALS: BP 126/58; PULSE 77; BMI 26.9
--- NOTE | 2024-06-13 14:52 | A.OFFVIS_ITS ---
Vital Signs 06/13/24 14:52 Height 5 ft 7 in Weight 171 lb 15.369 oz BMI 26.9 BP 126/58 L Blood Pressure Location Rt brachial Position Sitting Pulse 77 Intake Visit Reasons: f/u Intake Note: Patient in office today in follow up of labs and autoimmune hepatitis. CC: Patient reports doing well today and denies having any new GI concerns. Housecalls Nurse Required: No Accompanied by: Self / Same As Patient Allergies gadobutrol [From GADAVIST] Allergy (Severe, Verified 06/13/24 15:00) ANAPHYLAXIS hydroxychloroquine [Plaquenil] Allergy (Intermediate, Verified 06/13/24 15:00) rash,facial swelling levofloxacin [From LEVAQUIN] Allergy (Intermediate, Verified 06/13/24 15:00) ITCHY RASH pregabalin [From LYRICA] Allergy (Intermediate, Verified 06/13/24 15:00) STOMACH UPSET, Swelling tramadol Allergy (Intermediate, Verified 06/13/24 15:00) abdominal pain azathioprine Adverse Reaction (Intermediate, Verified 06/13/24 15:00) Nausea and Vomiting insulin aspart [From Novolog U-100 Insulin aspart] Adverse Reaction (Intermediate, Verified 06/13/24 15:00) chills, shaking, sweating, weakness and tachycardia Cedmmhl-OPA-XzA Reductase Inhibitor Adverse Reaction (Intermediate, Verified 06/13/24 15:00) transamimitis HPI Comments Details: This is a 56-year-old female past medical history of fibromyalgia, H pylori gastritis, who is following up for autoimmune hepatitis (with grade 2-3 activity and stage 3-4 fibrosis biopsy 11/2021). Recap: - Pt initially seen in 10/2021 for intermittent RUQ pain and elevated LFTs. Pt also has RA and was on MTX at one point but stopped this in summer 2021 due to elevation of LFTs. - Workup pos for ASMA 56. Previously check total IgG was elevated at 1884 in 2019. - Patient underwent liver biopsy on 12/18/21. Consistent with autoimmune hepatitis as suspected, with grade 2-3 activity and stage 3-4 fibrosis. - Treatment initially challenging due to labile sugars on pred and intolerance to Azathioprine. - Eventually switched to 6-MP in 03/2022. Adherence remained suboptimal throughout 2022 due to life events inclduing of her brother, surgeries leading to interruption in 6-MP which would then trigger AIH flare up. Has required multiple courses of high dose pred over the last 2 years. - Has also had ? of PSC based on elevated ALP and irregular dilation of CBD 14 mm ([facility] MRI scanned 07/2023) - H Pylori + since at least 2020. Tx deferred so far due to compliance issues. - Started on ozempic late 2023 which she self discontinued after weight loss from BMI 30 to 25. 11/22/23: [facility] Impression: 1. Normal colon and terminal ileum mucosa 2. Diverticulosis 3. Internal and external hemorrhoids Recommendations: - repeat colonoscopy for asymptomatic colorectal cancer screening in 10 years 06/13/24: Here for routine follow up. No acute GI issues including abd pain, N,V,D. No fatigue or pruritus. Reports significant b/l knee pain. Has known DJD based on knee XRs 08/2023. Labs reviewed. LFTs remain normal. A1c better. Pt off GLP-1 due to being uncomfortable with rapid sudden weight loss and increased abd discomfort and nausea. MRI abd w+w/o contrast 05/02/24: Several liver cysts. Liver 19 cm. Spleen 12.5 cm. Splenic hemangioma. No ascites. Dilation of intra and extrahepatic ducts. Common hepatic duct 1.4 cm. CBD 4 mm. There appears to be a 90 deg turn in the mid duct and the distal CBD does not appear to be dilated. No choledocholithiasis. No significant ductal irregularity . Atrophic pancreas. No PD dilation. Laboratory Tests 06/22/23 10/18/23 03/22/24 13:55 13:18 15:12 WBC Hgb Hct Plt Count Hgb A1c (Clinic) 10.6 H 9.2 H % Saturation Ferritin 178 Total Bilirubin Direct Bilirubin AST 17 ALT 16 Alkaline Phosphatase 99 Cholesterol LDL Cholesterol, Calc 25-OH Vitamin D Total 04/05/24 04/09/24 13:38 16:48 WBC 3.5 L Hgb 12.3 Hct 35.4 L Plt Count 235 Hgb A1c (Clinic) 8.1 H % Saturation 18 Ferritin Total Bilirubin 0.5 Direct Bilirubin 0.2 AST 22 ALT 23 Alkaline Phosphatase 105 Cholesterol 149 LDL Cholesterol, Calc 82 25-OH Vitamin D Total 24.1 L PFSH Medical History Pulmonary emphysema Hypothyroidism Type 2 diabetes mellitus Osteoarthritis of hand, left Chronic constipation Hypoactive bowel sounds Hand numbness Autoimmune thyroiditis Abdominal pain Inflammatory arthritis Breast mass, right Lung cyst Bilateral hand numbness Neck pain Dyslipidemia Post-surgical hypothyroidism Diabetic polyneuropathy associated with type 2 diabetes mellitus intermission coordinator (current) use of insulin Chronic idiopathic constipation Low vitamin D level Weight loss GERD (gastroesophageal reflux disease) Diabetes type 2, uncontrolled Fibromyalgia Insomnia Surgical History Hx of arthroscopy of left knee History of liver biopsy Hx of removal of cyst History of hysterectomy History of thyroidectomy, total History of esophagogastroduodenoscopy (EGD) Hx of colonoscopy (1998) Family History Father Status post liver transplant, biliary anastomotic size mis match Brother Cardiac arrest Mother No problems noted. Maternal Aunt Breast cancer Brother Essential hypertension Substance abuse Pure hypercholesterolemia Other Mental health problem Social History Household Members: None Housing: House Alcohol intake: never Patient Tobacco Use Status: Former Tobacco user Tobacco use type: Cigarette Cigarettes Per Day: 7 Years Smoked: 6 e-Cigarette/Vaping Use: Never Used Second Hand Smoke Exposure: No Advance Directives Date on File: 07/15/20 service: No Current occupational status: disabled Current occupation: right hand Cognitive needs: No Hearing needs: No Vision needs: No Female Reproductive History Menstrual Age of Menarche: 12 Review of Systems Const All systems reviewed & are unremarkable except as noted in HPI and below Physical Exam Vital Signs: Last Vital Signs Pulse 77 06/13/24 14:52 BP 126/58 L 06/13/24 14:52 BMI result Body Mass Index 26.9 No apparent distress Nonicteric Abdomen soft, nondistended Alert and oriented x3, normal gait Assessment & Plan Assessment & Plan (1) Autoimmune hepatitis: Code(s): K75.4 - Autoimmune hepatitis Category: Medical (2) Dilated bile duct: Code(s): K83.8 - Other specified diseases of biliary tract Category: Medical (3) H. pylori infection: Code(s): A04.8 - Other specified bacterial intestinal infections Category: Medical (4) GERD (gastroesophageal reflux disease): Code(s): K21.9 - Gastro-esophageal reflux disease without esophagitis Category: Medical Qualifiers: Esophagitis presence: esophagitis presence not specified Qualified Code(s): K21.9 - Gastro-esophageal reflux disease without esophagitis Plan 1. AIH 2. ? PSC Patient has biopsy-proven autoimmune hepatitis. Appears to be in clinical remission at this time. Based on report, can not r/o ductal stricture, images not available for review - MRI done at [facility]. Pt has upcoming follow up at [facility] transplant hep - will forward for their review and ? ERCP +/- spy. Plan: * Continue 6-MP 50mg. * MRCP report to be fwded to Dr Islas's office. * Osteopenia: - Dexa done 01/2024. - Already on Vit D. Started on bisphophonates. * Transplant candidacy: Established with [facility] Hep - Dr Islas. * CRC screening: - [facility] 2023 without polyps. Repeat recommended in 10 years. 3. H Pylori Tx pending so far due to ongoing issues as outlined in HPI. Reviewed quad therapy but pt would like to hold off today, and revisit this after her appt with Dr Islas. Follow up 4 months Patient Instructions: - Based on the MRI report from [facility] you have a tight turn vs narrowing of the bile duct. We do not have images yet but working on getting them. We will also send this to your [employer] Dr Islas to make sure this is not from inflammation of bile ducts (sclerosing cholangitis) - Anemia is better - Avoid ibuprofen. Tylenol up to 2000mg per day is ok - Liver numbers are looking good. No change to 6-MP. Coding Level of Care Code Est Pt Level 5 (65996) Complex EM visit Add On G2211 Diagnoses Autoimmune hepatitis K75.4 Dilated bile duct K83.8 H. pylori infection A04.8 Gastroesophageal reflux disease, unspecified whether esophagitis present K21.9 Esophagitis presence: esophagitis presence not specified
--- OUTSIDE RECORDS SUMMARY | 2024-06-13 17:00 | XMS_ITS | Clinical Summary ---
Author Organization [facility] Address [address] [place] [address] Care Team Providers Care Pipe Changer Name Role Phone Becca Sprague Primary Care Provider [phone] Allergies Active Allergy Reactions Criticality Noted Date [...] Care Team (Late st Contact Info) Description 06/26/2024 10:30 AM EDT [facility] [address] [place] [address] Amber Islas MD [address] [place] [address] Health Maintenance Due Date Last Done Comments Cervical Cancer Screening 1965 Cologuard 1965 FOBT / Fit Test 1965 HIV Screening 1965 HPV and Pap Smear 1965 Pap Smear 1965 Sigmoidoscopy 1965 Pneumococcal Vaccine: 50+ Ye ars (1 of 2 - PCV) 1984 Zoster Vaccines (1 of 2) 06/05/2015 Mammogram 07/26/2018 07/26/2016, 04/11/2015, 05/27/2014, Additional history exists Hepatitis B Vaccines [...] Screening Completed 09/15/2023 Procedures * Due to [place] [employer] law, this organization might not be sharing negative HIV tests. Procedure Name Priority Date/Time Associated Diagnosis Comments HEPATITIS C ANTIBODY W/REFLEX TO HCV RNA, QUANTITATIVE PCR Routine 09/15/2023 3:48 PM EDT Chronic autoimmune hepatitis (CMS/HCC) (HCC) from Last 3 Months or Most Recently Relevant to Health Maintenance Results * Due to [place] [employer] law, this organization might not be sharing negative HIV tests. * Hepatitis C Antibody w/Reflex to PCR (09/15/2023 3:48 PM EDT) Hepatitis C Antibody NON-REACT MICHEAL NON-REACT MICHEAL 09/15/2023 10:45 PM EDT [employer] [facility] Comment: HCV antibody was non-reactive. There is no laboratory evidence of HCV infection. In most cases, no further action is required. However, if recent HCV exposure is suspected, a test for HCV RNA (test code 36754) is suggested. For additional information please refer to http://education.[employer]/faq/IJO98j1 (This link is being provided for informational/ educational purposes only.) Blood Structure of peripheral vein / Unknown Venipuncture / Unknown 09/15/2023 3:48 PM EDT 09/15/2023 3:48 PM EDT Narrative [facility] - 09/15/2023 10:45 PM EDT [facility] Received Date: Amber Islas MD LAB BLOOD ORDERABLES Final Resul t [facility] [address] [facility] 3rd [address], [place] [address], [place] [phone] [employer] [facility] [address] [facility] 3rd [address], [place] [address], from Last 3 Months or Most Recently Relevant to Health Maintenance Insurance [facility] Advance Directives Healthcare Agents on File Name Relationship Healthcare Agent Relationshi p Communication Milena Avila Daughter Alternate Health Care Age nt Care Teams Pipe Changer Relationship Specialty Start Date End Date Becca Sprague [address] [place] [address] [place] [address] PCP - General Internal Medicine 08/16/19
--- OUTSIDE RECORDS SUMMARY | 2024-06-13 17:00 | XMS_ITS | Encounter Summary ---
Author Organization [employer] Address [address] [place] [address] 7t [place] [address] Care Team Providers Care Tax Collector Name Role Phone Unavailable Primary Care Provider Unavailabl e Reason for Visit * Reason Comments Dentures Encounter Details Date Type Department Care Team ([facility] st Contact Info) Description 06/11/2024 11:00 AM EDT Office Visit [facility] ADULT DENTAL [address] [place] [address] Amaury Duarte DMD [address] [place] [address] Social History Tobacco Use Types Packs/Day Years [...] Sign Reading Time Taken Comments Blood Pressure 128/86 06/11/2024 10:52 AM EDT Pulse - - Temperature - - Respiratory Rate - - Oxygen Saturation - - Inhaled Oxygen Concentration - - Weight - - Height - - Body Mass Index - - documented in this encounter Progress Notes * Amaury Duarte DMD - 06/11/2024 11:00 AM EDT Teeth try in of P/P. Pt likes the esthetic NV: Delivery of P/P Warren documented in this encounter Plan of Treatment Upcoming Encounters Date Type Department Care Team (Late st Contact Info) Description 06/29/2024 3:00 PM EDT Office Visit [facility] ADULT DENTAL [address] [place] [address] Amaury Duarte, [place] [address] [place] [address] 07/30/2024 2:00 PM EDT Office Visit [facility] ADULT DENTAL [address] [place] [address] Emily Cortez documented as of this encounter Procedures Procedure Name Priority Date/Time Associated Diagnosis Comments WAX TRY IN Routine 06/11/2024 11:00 AM EDT CASE PRESENTATION, DETAILED AND EXTENSIVE TREATMENT PLANNING Routine 06/11/2024 11:00 AM EDT documented in this encounter Visit Diagnoses Not on filedocumented in this encounter
--- OUTSIDE RECORDS SUMMARY | 2024-06-13 17:00 | XMS_ITS | Clinical Summary ---
Author Organization [employer] Address [address] [facility] 7[address] [place] [address] Care Team Providers Care Aircraft Instrument Repairer Name Role Phone Unavailable Primary Care Provider [...] Encounters Date Type Department Care Team Description 06/11/2024 11:00 AM EDT Office Visit [facility] ADULT DENTAL [address] [place], [place] [phone] Amaury Duarte DMD 06/01/2024 1:30 PM EST Office Visit [facility] ADULT DENTAL [address] [place] [address] Amaury Duarte DMD 04/04/2024 2:00 PM EST Office Visit [facility] ADULT DENTAL [address] [place] [address] Emily Cortez Dental plaque (Primary Dx); Dental calculus; [...] Description 06/29/2024 3:00 PM EDT Office Visit [facility] ADULT DENTAL [address] [place] [address] Amaury Duarte DMD [address] [place] [address] 07/30/2024 2:00 PM EDT Office Visit [facility] ADULT DENTAL [address] [place] [address] Emily Cortez Health Maintenance Due Date Last Done Comments CT Colonography 1965 Colonoscopy 1965 Colorectal Cancer Screening 1965 Depression Screening 1965 FIT DNA/Cologuard 1965 FIT 1965 FOBT 1965 HIV Screening 1965 SDOH Screening 1965 Sigmoidoscopy 1965 Alcohol/Substance [...] X-Ray: Bitewings 11/03/2024 11/03/2023, 01/05 Tobacco Screening 06/01/2025 06/01/2024 Dental X-Ray: Full Mouth 01/06/2026 01/05/2023, 11/26 [...] TREATMENT PLANNING Routine 06/11/2024 11:00 AM EDT WAX TRY IN Routine 06/11/2024 11:00 AM EDT BITE REGISTRATION Routine 06/01/2024 1:3 0 PM EST DENTURE IMPRESSION Routine 06/01/2024 1: 30 PM EST CASE PRESENTATION, DETAILED AND EXTENSIVE TREATMENT PLANNING [...] Most Recently Relevant to Health Maintenance Insurance [facility] [employer] [place]
--- OUTSIDE RECORDS SUMMARY | 2024-06-13 17:00 | XMS_ITS | Referral Summary ---
Author Organization [facility] Address [address] [place] [address] Care Team Providers Care Diamond Assorter Name Role Phone Becca Sprague Primary Care Provider [phone] Allergies Active Allergy Reactions Criticality Noted Date [...] Info) Description 06/26/2024 10:30 AM EDT Telehealth [facility] [address] [place] [address] [phone] Amber Islas MD [address] [place] [phone] Procedures * Due to [place] [employer] law, this organization might not be sharing negative HIV tests. Procedure Name Priority Date/Time Associated Diagnosis Comments HEPATITIS C ANTIBODY W/REFLEX TO HCV RNA, QUANTITATIVE PCR Routine 09/15/2023 3:48 PM EDT Chronic autoimmune hepatitis (CMS/HCC) (HCC) from Last 3 Months or Most Recently Relevant to Health Maintenance Results * Due to [place] [employer] law, this organization might not be sharing negative HIV tests. * Hepatitis C Antibody w/Reflex to PCR (09/15/2023 3:48 PM EDT) Hepatitis C Antibody NON-REACT MICHEAL NON-REACT MICHEAL 09/15/2023 10:45 PM EDT [facility] Comment: HCV antibody was non-reactive. There is no laboratory evidence of HCV infection. In most cases, no further action is required. However, if recent HCV exposure is suspected, a test for HCV RNA (test code 59212) is suggested. For additional information please refer to http://education.[employer]/faq/FXP76s2 (This link is being provided for informational/ educational purposes only.) Blood Structure of peripheral vein / Unknown Venipuncture / Unknown 09/15/2023 3:48 PM EDT 09/15/2023 3:48 PM EDT Narrative [facility] - 09/15/2023 10:45 PM EDT [facility] Received Date: Amber Islas MD LAB BLOOD ORDERABLES Final Resul t [facility] [address] [facility] [address] [facility], [place] [address], [facility] [address] [facility] 3[address], [place] [address], [place] [phone] from Last 3 Months or Most Recently Relevant to Health Maintenance Insurance [facility] Advance Directives Healthcare Agents on File Name Relationship Healthcare Agent Relationshi p Communication Milena Avila Daughter Alternate Health Care Age nt Care Teams Diamond Assorter Relationship Specialty Start Date End Date Becca Sprague [address] [place] [address] [place] [address] PCP - General Internal Medicine 08/16/19
--- OUTSIDE RECORDS SUMMARY | 2024-06-13 17:00 | XMS_ITS | Encounter Summary ---
Author Organization [employer] Address [address] [place] [address] [address] [place] [address] Care Team Providers Care Truss Assembler Name Role Phone Unavailable Primary Care Provider Unavailabl e Reason for Visit * Reason Comments Dentures Encounter Details Date Type Department Care Team ([facility] st Contact Info) Description 06/01/2024 1:30 PM EST Office Visit [facility] ADULT DENTAL [address] [place] [address] Amaury Duarte DMD [address] [place] [address] Social History Tobacco Use Types Packs/Day Years [...] Sign Reading Time Taken Comments Blood Pressure 134/78 06/01/2024 1:11 PM EST Pulse - - Temperature - - Respiratory Rate - - Oxygen Saturation - - Inhaled Oxygen Concentration - - Weight - - Height - - Body Mass Index - - documented in this encounter Progress Notes * Amaury Duarte DMD - 06/01/2024 1:30 PM EST Impression and bite registration of P/P NV: Teeth try in of P/P Warren documented in this encounter Plan of Treatment Upcoming Encounters Date Type Department Care Team (Late st Contact Info) Description 06/29/2024 3:00 PM EDT Office Visit [facility] ADULT DENTAL [address] [place] [address] Amaury Duarte, [place] [address] [place] [address] 07/30/2024 2:00 PM EDT Office Visit [facility] ADULT DENTAL [address] [place] [address] Emily Cortez documented as of this encounter Procedures Procedure Name Priority Date/Time Associated Diagnosis Comments BITE REGISTRATION Routine 06/01/2024 1:30 PM EST DENTURE IMPRESSION Routine 06/01/2024 1:30 PM EST documented in this encounter Visit Diagnoses Not on filedocumented in this encounter
== END 2024-06-13 15:30 | disposition home or self-care (01) ==
LOC: HO.HGI 14:50
PROVIDERS: PCP Internal Medicine; Visit Provider Internal Medicine
DX: K75.4 Autoimmune hepatitis (principal); K83.8 Other specified diseases of biliary tract; A04.8 Other specified bacterial intestinal infections; K21.9 Gastro-esophageal reflux disease without esophagitis
CPT/HCPCS: 99214; G2211

== ENCOUNTER → 2024-06-13 14:50 | Outpatient (BNVA) | payer MEDICARE, SELFPAY | PROVIDERS: PCP Internal Medicine; Visit Provider Internal Medicine | DX: K75.4 Autoimmune hepatitis (principal); K83.8 Other specified diseases of biliary tract; K21.9 Gastro-esophageal reflux disease without esophagitis; A04.8 Other specified bacterial intestinal infections | CPT/HCPCS: 99212 ==

== ENCOUNTER 2024-06-14 11:40 | Outpatient (REF) | payer MEDICARE, SELFPAY ==
[2024-06-17 08:57] LABS: H Pylori Breath Test Positive (Negative)
== END 2024-06-14 11:41 | disposition home or self-care (01) ==
LOC: HO.LAB 11:40
PROVIDERS: PCP Internal Medicine; Visit Provider Internal Medicine
DX: Z11.0 Encounter for screening for intestinal infectious diseases (principal)
CPT/HCPCS: 83013

== ENCOUNTER 2024-08-06 15:36 | Outpatient (AMB) | payer MEDICARE, SELFPAY ==
--- NOTE | 2024-08-06 15:38 | MHC.PC.OV ---
Vital Signs 08/06/24 15:40 Height 5 ft 7 in Weight 169 lb BMI 26.5 BP 136/82 Blood Pressure Location Lt brachial Position Sitting Intake Visit Reasons: dm Customer Complaint Service Supervisor Required: No Accompanied by: Self / Same As Patient Allergies gadobutrol [From GADAVIST] Allergy (Severe, Verified 08/06/24 15:57) ANAPHYLAXIS hydroxychloroquine [Plaquenil] Allergy (Intermediate, Verified 08/06/24 15:57) rash,facial swelling levofloxacin [From LEVAQUIN] Allergy (Intermediate, Verified 08/06/24 15:57) ITCHY RASH pregabalin [From LYRICA] Allergy (Intermediate, Verified 08/06/24 15:57) STOMACH UPSET, Swelling tramadol Allergy (Intermediate, Verified 08/06/24 15:57) abdominal pain azathioprine Adverse Reaction (Intermediate, Verified 08/06/24 15:57) Nausea and Vomiting insulin aspart [From Novolog U-100 Insulin aspart] Adverse Reaction (Intermediate, Verified 08/06/24 15:57) chills, shaking, sweating, weakness and tachycardia Kwexyhp-LOT-YrZ Reductase Inhibitor Adverse Reaction (Intermediate, Verified 08/06/24 15:57) transamimitis Medication List - Last Reconciled 08/06/24 by Becca Newberry MD albuterol sulfate 90 mcg/actuation 2 puffs inhalation Q6H PRN 30 days alendronate 70 mg PO QWEEK 90 days [bath bench with back As directed] [bed rails As directed] bismuth subsalicylate 2 tabs PO QID 14 days blood sugar diagnostic (FreeStyle Lite Strips) As directed 3 times a day blood-glucose meter (FreeStyle Lite Meter kit) As directed cholecalciferol (vitamin D3) 50 mcg PO DAILY 90 days docusate sodium (Colace) 100 mg PO BID empagliflozin (Jardiance) 10 mg PO DAILY 30 days ergocalciferol (vitamin D2) 1,250 mcg PO WE 90 days famotidine 20 mg PO BEDTIME flash glucose scanning reader ([employer] Liza 2 [place]) As directed flash glucose sensor (FreeStyle Liza 2 Sensor kit) As directed -change every 14 days ibuprofen 600 mg PO TID PRN 30 days insulin degludec (Tresiba FlexTouch U-200 insulin) 175 units (0.875 mL) subcut BID 90 days lancets (FreeStyle Lancets) Use 1 lancet three times a day levothyroxine 200 mcg PO DAILY 90 days levothyroxine 50 mcg PO DAILY 90 days loratadine 10 mg PO DAILY 90 days mercaptopurine 50 mg PO DAILY metronidazole 250 mg PO QID 14 days omeprazole 20 mg PO BID 14 days ondansetron HCl 8 mg PO DAILY PRN 30 days oxycodone 10 mg PO Q8H PRN 30 days pen needle, diabetic (BD Ultra-Fine Alivia Pen Needle) As directed 4x/day ropinirole 0.25 mg PO BEDTIME PRN rosuvastatin 10 mg PO DAILY 90 days semaglutide (Ozempic) 0.25 mg (0.368 mL) subcut QWEEK 4 weeks tetracycline 500 mg PO QID 14 days underpads (Bed Underpads) As directed zolpidem 10 mg PO BEDTIME 30 days Tobacco use date assessed: 04/09/24 Dental Screening Dental Screen Date: 04/09/24 HPI HPI Comments History of Present Illness Details The patient is a 59-year-old female presenting with issues related to her Type 2 Diabetes Mellitus management. In March, her Hemoglobin A1C was 8.1%, which has now increased to 10.7%, suggesting a deteriorating glycemic control. The patient has experienced difficulties in acquiring glucose monitoring supplies due to changes in insurance, impacting her insulin administration. She is currently following up with endocrinology for diabetes management. The patient reports additional chronic conditions, including osteoporosis managed with alendronate, and autoimmune hepatitis treated with mercaptopurine. Recent challenges include fibromyalgia, which persists despite ibuprofen use, and hypothyroidism managed with levothyroxine. She has faced complications with Ozempic due to its impact on her appetite and gastrointestinal discomfort, leading to dose adjustments. The patient stopped tetracycline due to intolerable side effects, including esophageal swelling. Social stressors, such as her daughter's intended relocation, contribute to increased anxiety and insomnia. She also has hypertension and hyperlipidemia. Also has rheumatoid arthritis follow by Rheumatology. [facility] Medical History Pulmonary emphysema Hypothyroidism Type 2 diabetes mellitus Osteoarthritis of hand, left Chronic constipation Hypoactive bowel sounds Hand numbness Autoimmune thyroiditis Abdominal pain Inflammatory arthritis Breast mass, right Lung cyst Bilateral hand numbness Neck pain Dyslipidemia Post-surgical hypothyroidism Diabetic polyneuropathy associated with type 2 diabetes mellitus retirement (current) use of insulin Chronic idiopathic constipation Low vitamin D level Weight loss GERD (gastroesophageal reflux disease) Diabetes type 2, uncontrolled Fibromyalgia Insomnia Surgical History Hx of arthroscopy of left knee History of liver biopsy Hx of removal of cyst History of hysterectomy History of thyroidectomy, total History of esophagogastroduodenoscopy (EGD) Hx of colonoscopy (1998) Family History Father Status post liver transplant, biliary anastomotic size mismatch Brother Cardiac arrest Mother No problems noted. Maternal Aunt Breast cancer Brother Essential hypertension Substance abuse Pure hypercholesterolemia Other Mental health problem Social History Household Members: None Housing: House Alcohol intake: never Patient Tobacco Use Status: Former Tobacco user Tobacco use type: Cigarette Cigarettes Per Day: 7 Years Smoked: 6 e-Cigarette/Vaping Use: Never Used Second Hand Smoke Exposure: No Advance Directives Date on File: 07/15/20 service: No Current occupational status: disabled Current occupation: right hand Cognitive needs: No Hearing needs: No Vision needs: No Female Reproductive History Menstrual Age of Menarche: 12 Questionnaire PHQ-9 Over the last 2 weeks, how often have you been bothered by any of the following problems? 1. Little interest or pleasure in doing things: more than half the days 2. Feeling down, depressed, or hopeless: several days 3. Trouble falling or staying asleep, or sleeping too much: several days 4. Feeling tired or having little energy: several days 5. Poor appetite or overeating: more than half the days 6. Feeling bad about yourself - or that you are a failure or have let yourself or your family down: not at all 7. Trouble concentrating on things, such as reading the newspaper or watching television: several days 8. Moving or speaking so slowly that other people could have noticed. Or the opposite - being so fidgety or restless that you have been moving around a lot more than usual: several days 9. Thoughts that you would be better off or of hurting yourself in some way: not at all Total score: 9 Depression Screening Interpretation: Positive Depression Screening Follow-up: Existing condition and Follow-up Visit Requested Depression Screening Done: Yes 76733 - PHQ-9 Billing: Yes Source: Developed by Drs. Esdras Tang, April Mathews, Bobby Toussaint and colleagues, with an educational antonella from [employer]. Thrive Questionnaire Date Thrive assessed: 04/09/24 I am a: Patient What is your living situation today?: I have a steady place to live Within the past 12 months, did the food you bought not last and you didn't have the money to get more?: Sometimes True Within the past 12 months, did you worry whether your food would run out before you got money to buy more?: Often true Do you have trouble paying for medicines?: No Do you have trouble getting transportation to medical appointments?: Yes Do you have trouble paying your heating and electricity bill?: Yes Do you have trouble taking care of your child, family member or friend?: No Do you have trouble with day-to-day activities such as bathing, preparing meals, shopping, managing finances, etc.?: No Are you currently unemployed and looking for a job?: No Are you interested in more education?: No Please select the resources that you would like help with: None Currently or been in a relationship where the following occur: No concerns reported THRIVE Score: 4 AUDIT C Alcohol Use Questionnaire (AUDIT-C) 1. How often do you have a drink containing alcohol?: Never Total Score: 0 Score Reviewed/Action Taken: No HATTIE-7 AMB Questionnaire HATTIE-7 Date HATTIE - 7 assessed: 08/06/24 Feeling nervous, anxious, or on edge: 1 = Several days Not being able to stop or control worryin = Not at all Worrying too much about different things: 1 = Several days Trouble relaxin = More than half the days Being so restless that it is hard to sit still: 0 = Not at all Becoming easily annoyed or irritable: 0 = Not at all Feeling afraid as if something awful might happen: 1 = Several days Total HATTIE-7 score (0-4 normal; 5-9 mild; 10-14 moderate; 15-21 severe): 5 Source: Developed by April Dykes Kurt Kroenke and colleagues, with an educational antonella from [employer]. HATTIE-7 Assessment Billing HATTIE-7 Assessment Tool: HATTIE-7 Assessment 21025 Review of Systems Const All systems reviewed & are unremarkable except as noted in HPI and below Card Denies chest pain at rest, Denies chest pain with activity, Denies edema, Denies irregular heart rhythm, Denies claudication, Denies dyspnea, Denies dyspnea on exertion, Denies orthopnea, Denies paroxysmal nocturnal dyspnea and Denies slow heart rate Resp Denies cough, Denies dyspnea and Denies dyspnea on exertion Neuro Denies lack of coordination Physical exam (Primary Care) Vital Signs: Last Vital Signs BP 136/82 08/06/24 15:40 BMI result Body Mass Index 26.5 Tobacco/Smoking Status: Tobacco use Status Tobacco use date assessed 04/09/24 08/06/24 15:39 Patient Tobacco Use Status Former Tobacco user 08/06/24 15:39 Tobacco use type Cigarette 08/06/24 15:39 e-Cigarette/Vaping Use Never Used 08/06/24 15:39 PHQ-9: PHQ-9 Score PHQ-9: Total score 9 08/06/24 16:47 Depression Screening Interpretation: Positive Depression Screening Follow-up: Existing condition and Follow-up Visit Requested Thrive Assessment: Date of Thrive Assessment Date Thrive assessed 04/09/24 08/06/24 15:39 Currently or been in a relationship where the following occur: No concerns reported Resp Effort & Inspection: normal respiratory effort Auscultation: clear to auscultation bilaterally Cardio Jugular venous distension: no JVD Rate: regular rate Rhythm: regular rhythm Heart sounds: S1 normal heart sound present and S2 normal heart sound present Extrem General: Yes full ROM Results AMB Hemoglobin A1c AMB Hemoglobin A1c 10.7 % Last Edit by LINDA Crump on 08/06/24 15:51 Results Reviewed Results Reviewed: Laboratory Last Values Hgb A1c (Clinic) 10.7 % (4.0-6.0) H 08/06/24 15:40 Coding Level of Care Code Est Pt Level 4 (59991) Complex EM visit Add On G2211 Diagnoses Type 2 diabetes mellitus with hyperglycemia, with long-term current use of insulin E11.65; Z79.4 Diabetes mellitus fpc insulin use: with fpc use Diabetes mellitus complication status: with hyperglycemia Hypothyroidism E03.9 Mild major depression F32.0 Autoimmune hepatitis K75.4 Hyperlipidemia LDL goal <70 E78.5 Seronegative rheumatoid arthritis M06.00 Additional Codes HATTIE-7 Assessment Billing - HATTIE-7 Assessment Tool: HATTIE-7 Assessment 58062 ([id number]) PHQ-9 - 89063 - PHQ-9 Billing: Yes ([id number]) Time Spent (min) 23 Assessment & Plan Assessment & Plan (1) Type 2 diabetes mellitus: Code(s): E11.9 - Type 2 diabetes mellitus without complications Category: Medical Qualifiers: Diabetes mellitus fpc insulin use: with fpc use Diabetes mellitus complication status: with hyperglycemia Qualified Code(s): E11.65 - Type 2 diabetes mellitus with hyperglycemia; Z79.4 - retirement (current) use of insulin (2) Hypothyroidism: Code(s): E03.9 - Hypothyroidism, unspecified Category: Medical (3) Mild major depression: Code(s): F32.0 - Major depressive disorder, single episode, mild Category: Medical (4) Autoimmune hepatitis: Code(s): K75.4 - Autoimmune hepatitis Category: Medical (5) Hyperlipidemia LDL goal <70: Code(s): E78.5 - Hyperlipidemia, unspecified Category: Medical (6) Seronegative rheumatoid arthritis: Comment: Methotrexate 11/2020-July 2021. Code(s): M06.00 - Rheumatoid arthritis without rheumatoid factor, unspecified site Category: Medical Plan The patient is advised to follow up with endocrinology for ongoing diabetes care. Current osteoporosis management with alendronate and autoimmune hepatitis management with mercaptopurine will continue. Ibuprofen will be maintained for fibromyalgia, but if symptoms persist, reassessment might be needed. Addressing the patient?s anxiety involves promoting coping strategies and monitoring her sleep patterns, with further interventions planned if insomnia persists.: Patient was informed and verbally consented to the use of an ambient scribe for clinic note documentation during this visit. I discussed with the patient the significance of managing her Type 2 Diabetes Mellitus effectively, emphasizing the impacts of high A1C levels on her health. We reviewed the risks of not optimizing glucose levels and the potential benefits and side effects associated with a lower Ozempic dose. I explained the importance of maintaining her current regimen for osteoporosis and autoimmune hepatitis, and informed her of the necessity to monitor for side effects from these medications. For her fibromyalgia, the role of ibuprofen in managing inflammation was discussed, alongside potential adjustments if relief is not achieved. We acknowledged the emotional stress linked to her daughter's move and the resultant effects on her mental health. I instructed her to focus on practical coping mechanisms and to reach out if symptoms worsen. Follow-up and appropriate monitoring were advised. Orders: Orders AMB Hemoglobin A1c Today E11.65 - Type 2 diabetes mellitus with hyperglycemia, Z79.4 - retirement (current) use of insulin Lipid Panel Today E78.5 - Hyperlipidemia, unspecified Microalbumin, Random (w Creat) Today R80.9 - Proteinuria, unspecified Vitamin D 25-OH Total Today E55.9 - Vitamin D deficiency, unspecified Thyroid Stimulating Hormone Today E03.9 - Hypothyroidism, unspecified Comprehensive [place]. Panel Fast Today E11.65 - Type 2 diabetes mellitus with hyperglycemia, Z79.4 - retirement (current) use of insulin Medications: New semaglutide (Ozempic) 0.5 mg (0.736 mL) subcut QWEEK 2.944 mL 0RF 4 weeks E11.65 - Type 2 diabetes mellitus with hyperglycemia, Z79.4 - retirement (current) use of insulin levocetirizine 5 mg PO DAILY PRN 30 tabs 3RF allergy symptoms 30 days Refilled blood sugar diagnostic (FreeStyle Lite Strips) As directed 3 times a day 100 ea 11RF E11.65 - Type 2 diabetes mellitus with hyperglycemia lancets (FreeStyle Lancets) Use 1 lancet three times a day 100 ea 5RF E11.65 - Type 2 diabetes mellitus with hyperglycemia Discontinued semaglutide (Ozempic) for 4 weeks Discontinued Reason: Patient Completed Course 0.25 mg (0.368 mL) subcut QWEEK 4 weeks 1.472 mL 0RF Patient Instructions: - Take Ozempic at the new dose of 0.5 mg as prescribed. - Ensure you have a supply of glucose strips for regular blood glucose monitoring. - Continue current medications for osteoporosis and autoimmune hepatitis as directed. - Use ibuprofen for fibromyalgia pain as needed and monitor any changes in symptoms. - Follow up with your customs port director for ongoing diabetes management. - Practice stress management techniques for anxiety related to family changes.
[2024-08-06 15:40] VITALS: BP 136/82; BMI 26.5
--- OUTSIDE RECORDS SUMMARY | 2024-08-06 15:40 | XMS_ITS | Clinical Summary ---
Author Organization [employer] Address [address] [facility] 7t [place] [address] Care Team Providers Care Major Donor Coordinator Name Role Phone Unavailable Primary Care Provider [...] Encounters Date Type Department Care Team Description 06/29/2024 3:00 PM EDT Office Visit [facility] [address], [place] [phone] Amaury Duarte DMD 06/11/2024 11:00 AM EDT Office Visit [facility] [address] [place] [address] Amaury Duarte DMD 06/01/2024 1:30 PM EST Office Visit [facility] [address] [place] [address] Amaury Duarte DMD from Last 3 Months Social History Tobacco [...] Sign Reading Time Taken Comments Blood Pressure 130/80 06/29/2024 2:53 PM EDT Pulse 72 06/29/2024 2:53 PM EDT Temperature - - Respiratory Rate - - Oxygen Saturation - - Inhaled Oxygen Concentration - - Weight - - Height - - Body Mass Index - - Plan of Treatment Upcoming Encounters Date Type Department Care Team (Late st Contact Info) Description 11/28/2024 2:00 PM EDT Office Visit [facility] [address] [place] [address] Emily Cortez Health Maintenance Due Date Last [...] X-Ray: Bitewings 11/03/2024 11/03/2023, 01/05 Tobacco Screening 06/29/2025 06/29/2024 Dental X-Ray: Full Mouth 01/06/2026 01/05/2023, 11/26 [...] PRESENTATION, DETAILED AND EXTENSIVE TREATMENT PLANNING Routine 06/29/2024 3:00 PM EDT 18,19,24,29,30,31 MANDIBULAR PARTIAL DENTURE - RESIN BASE (INCLUDING, RETENTIVE/CLASPING MATERIALS, RESTS, AND TEETH) Routine 06/29/2024 3:00 PM EDT 2,3,14,15 MAXILLARY PARTIAL DENTURE - RESIN BASE (INCLUDING, RETENTIVE/CLASPING MATERIALS, RESTS, AND TEETH) Routine 06/29/2024 3:00 PM EDT CASE PRESENTATION, DETAILED AND EXTENSIVE TREATMENT PLANNING Routine 06/11/2024 11:00 AM EDT WAX TRY IN Routine 06/11/2024 11:00 AM EDT BITE REGISTRATION Routine 06/01/2024 1:3 0 PM EST DENTURE IMPRESSION Routine 06/01/2024 1: 30 PM EST PROPHYLAXIS - ADULT Routine 01/30/2024 3 :00 [...] Most Recently Relevant to Health Maintenance Insurance [facility] MEDICAID STAND ADULT
--- OUTSIDE RECORDS SUMMARY | 2024-08-06 15:40 | XMS_ITS | Referral Summary ---
Author Organization [facility] Address [address] [place] [address] Care Team Providers Care Electric Bath Attendant Name Role Phone Becca Sprague Primary Care Provider [phone] Encounters Date Type Department Care Team Description 06/26/2024 10:30 AM EDT Telehealth [facility] [address] [place] [address] Amber Islas MD Chronic autoimmune hepatitis (HCC) (Primary Dx) 06/22/2024 Orders Only [facility] Transplant Department [address] [place] [address] Provider, MD Namrata from Last 3 Months Allergies Active Allergy Reactions Criticality Noted Date [...] Care Team (Late st Contact Info) Description 10/09/2024 11:00 AM EDT Follow-Up [facility] [address] [place] [address] Amber Islas MD [address] [place], [place] [id number] Procedures * Due to [facility] law, this organization might not be sharing negative HIV tests. Procedure Name Priority Date/Time Associated Diagnosis Comments HEPATITIS C ANTIBODY W/REFLEX TO HCV RNA, QUANTITATIVE PCR Routine 09/15/2023 3:48 PM EDT Chronic autoimmune hepatitis from Last 3 Months or Most Recently Relevant to Health Maintenance Results * Due to [facility] law, this organization might not be sharing negative HIV tests. * Hepatitis C Antibody w/Reflex to PCR (09/15/2023 3:48 PM EDT) Hepatitis C Antibody NON-REACT MICHEAL NON-REACT MICHEAL 09/15/2023 10:45 PM EDT [employer] Comment: HCV antibody was non-reactive. There is no laboratory evidence of HCV infection. In most cases, no further action is required. However, if recent HCV exposure is suspected, a test for HCV RNA (test code 82140) is suggested. For additional information please refer to http://education.[employer]/faq/UVU16o1 (This link is being provided for informational/ educational purposes only.) Blood Structure of peripheral vein / Unknown Venipuncture / Unknown 09/15/2023 3:48 PM EDT 09/15/2023 3:48 PM EDT Narrative [facility] - 09/15/2023 10:45 PM EDT [facility] Received Date: Amber Islas MD LAB BLOOD ORDERABLES Final Resul t [facility] [address], [place] [address], [place] [phone] [facility] [address], [place] [address], [place] [phone] from Last 3 Months or Most Recently Relevant to Health Maintenance Insurance [facility] [place] [address] Advance Directives Healthcare Agents on File Name Relationship Healthcare Agent Relationshi p Communication Milena Avila Daughter Alternate Health Care Age nt Care Teams Electric Bath Attendant Relationship Specialty Start Date End Date Becca Sprague [address] [place] [address] [place] [address] PCP - General Internal Medicine 08/16/19
--- OUTSIDE RECORDS SUMMARY | 2024-08-06 15:40 | XMS_ITS | Clinical Summary ---
Author Organization [facility] Address [address] [place] [address] Care Team Providers Care Editing Computer Publisher Name Role Phone Becca Sprague Primary Care Provider [phone] Allergies Active Allergy Reactions Criticality Noted Date [...] Active Active Problems No known active problems Encounters Date Type Department Care Team Description 06/26/2024 10:30 AM EDT Telehealth [facility] [address] [place] [address] Amber Islas MD Chronic autoimmune hepatitis (HCC) (Primary Dx) 06/22/2024 Orders Only [facility] Transplant Department [address] [place] [address] Provider, MD Namrata from Last 3 Months Social History Tobacco [...] Info) Description 10/09/2024 11:00 AM EDT Follow-Up [facility] [address] [place] [address] Amber Islas MD [address] [place] [address] Health Maintenance Due Date Last Done Comments [...] - 2023-2 5 season) 2023 09/13/2020, 08/23/2020 Alcohol/Substance Use Screening 03/28/2024 Depression Screening and Follow-Up 03/28/2024 Social Drivers of Health Jessica ual Screening 03/28/2024 Influenza Vaccine (Season Ended) 2024 12/31/2021, 01/15/2021, 02/12/2020, Additional history exists Colon Cancer Screening 10/20/2025 Colonoscopy 10/20/2025 10/21/2015 DTaP,Tdap,and Td Vaccines (2 - Td or Tdap) 05/19/2026 05/19/2016 RSV Vaccine (60+ years old a nd patients) (1 - 1-dose 75+ series) 2040 Tobacco Screening 03/28/2042 09/15/2023 Hepatitis C Screening Completed 09/15/2023 Procedures * Due to [place] [employer] law, this organization might not be sharing negative HIV tests. Procedure Name Priority Date/Time Associated Diagnosis Comments HEPATITIS C ANTIBODY W/REFLEX TO HCV RNA, QUANTITATIVE PCR Routine 09/15/2023 3:48 PM EDT Chronic autoimmune hepatitis from Last 3 Months or Most Recently Relevant to Health Maintenance Results * Due to [place] [employer] law, this organization might not be sharing negative HIV tests. * Hepatitis C Antibody w/Reflex to PCR (09/15/2023 3:48 PM EDT) Hepatitis C Antibody NON-REACT MICHEAL NON-REACT MICHEAL 09/15/2023 10:45 PM EDT [employer] Comment: HCV antibody was non-reactive. There is no laboratory evidence of HCV infection. In most cases, no further action is required. However, if recent HCV exposure is suspected, a test for HCV RNA (test code 13716) is suggested. For additional information please refer to http://education.[employer]/faq/OCS53v6 (This link is being provided for informational/ educational purposes only.) Blood Structure of peripheral vein / Unknown Venipuncture / Unknown 09/15/2023 3:48 PM EDT 09/15/2023 3:48 PM EDT Narrative [facility] - 09/15/2023 10:45 PM EDT [facility] Received Date: us Amber Islas MD LAB BLOOD ORDERABLES Final Resul t [facility] [address] [facility] 3rd Floor, [place] [address], [place] [phone] [employer] [facility] [address] [facility] 3rd Floor, [place] [address], [place] [phone] from Last 3 Months or Most Recently Relevant to Health Maintenance Insurance [facility] [place] [address] Advance Directives Healthcare Agents on File Name Relationship Healthcare Agent Relationshi p Communication Milena Avila Daughter Alternate Health Care Age nt Care Teams Editing Computer Publisher Relationship Specialty Start Date End Date Becca Sprague [address] [place] [address] [place] [address] PCP - General Internal Medicine 08/16/19
== END 2024-08-06 16:20 | disposition home or self-care (01) ==
LOC: HO.HMCH 15:37
PROVIDERS: PCP Internal Medicine; Visit Provider Internal Medicine
DX: E11.65 Type 2 diabetes mellitus with hyperglycemia (principal); Z79.4 Long term (current) use of insulin; K75.4 Autoimmune hepatitis; M06.00 Rheumatoid arthritis without rheumatoid factor, unspecified site; E03.9 Hypothyroidism, unspecified; F32.0 Major depressive disorder, single episode, mild; E78.5 Hyperlipidemia, unspecified

== ENCOUNTER → 2024-08-06 15:36 | Outpatient (BNVA) | payer MEDICARE, MEDICAID, SELFPAY | PROVIDERS: PCP Internal Medicine; Visit Provider Internal Medicine | DX: E11.65 Type 2 diabetes mellitus with hyperglycemia (principal); E78.5 Hyperlipidemia, unspecified; M81.0 Age-related osteoporosis without current pathological fracture; K75.4 Autoimmune hepatitis; M79.7 Fibromyalgia; E03.9 Hypothyroidism, unspecified; I10 Essential (primary) hypertension; F32.0 Major depressive disorder, single episode, mild; M06.00 Rheumatoid arthritis without rheumatoid factor, unspecified site; R80.9 Proteinuria, unspecified; E55.9 Vitamin D deficiency, unspecified; Z79.4 Long term (current) use of insulin; Z79.899 Other long term (current) drug therapy | CPT/HCPCS: 83036; 96127; 99212 ==

== ENCOUNTER 2024-08-15 11:13 | Outpatient (AMB) | payer MEDICARE, MEDICAID, SELFPAY ==
--- NOTE | 2024-08-15 07:40 | A.OFFVIS_ITS ---
Vital Signs 08/15/24 11:19 Height 5 ft 7 in Weight 169 lb 15.369 oz BMI 26.6 BP 118/72 Blood Pressure Location Rt brachial Position Sitting Pulse 86 Pulse Source Pulse Oximeter Pulse Oximetry (%) 98 Oxygen Delivery Method Room Air Intake Visit Reasons: dM Intake Note: Patient presents today for a follow-up on Type 2 Diabetes Mellitus: Last Diabetic eye exam was on: 07/17/2024, [facility]. Last Podiatry exam was on: Patient does not see a Retort Press Operator Most recent HbA1c: 10.7%, 08/06/2024 Random Glucose- 175 mg/dL, Today Aircraft Line Assembler Required: No Accompanied by: Self / Same As Patient Allergies gadobutrol (From GADAVIST) Allergy (Severe, Verified 08/15/24 11:27) ANAPHYLAXIS hydroxychloroquine (Plaquenil) Allergy (Intermediate, Verified 08/15/24 11:27) rash,facial swelling levofloxacin (From LEVAQUIN) Allergy (Intermediate, Verified 08/15/24 11:27) ITCHY RASH pregabalin (From LYRICA) Allergy (Intermediate, Verified 08/15/24 11:27) STOMACH UPSET, Swelling tramadol Allergy (Intermediate, Verified 08/15/24 11:27) abdominal pain azathioprine Adverse Reaction (Intermediate, Verified 08/15/24 11:27) Nausea and Vomiting insulin aspart (From Novolog U-100 Insulin aspart) Adverse Reaction (Intermediate, Verified 08/15/24 11:27) chills, shaking, sweating, weakness and tachycardia Qrgxwej-WIW-QlK Reductase Inhibitor Adverse Reaction (Intermediate, Verified 08/15/24 11:27) transamimitis HPI Comments Details: Patient is a 59-year-old female with DM type 2 diagnosed 2013 who presents for management of diabetes and hypothyroidism. She was last seen 12/29/2023 Hemoglobin A1c 10.7% 08/15/2024, previous 9.2% 10/17/2024 She was diagnosed with type 2 diabetes Previous medication: She did not tolerate Trulicity due to side effects, Metformin 1000mg bid caused GI upset She felt she had too much weight loss and no appetite with ozempic. She would at times not eat all day jardiance: hasn't taken Diabetes medications: Tresiba 170 unit if over 200. If less she is taking 80 units Jardiance 10mg daily not taking Glucose average 207 A.m. readings 70-175 1 reading at 70 1 reading higher at 261 Afternoons in the mid 200s No retinopathy last eye exam 06/2024 + Neuropathy:Symptoms reported: + numbness, tingling, cramping in lower extremities. Reports RLS No Nephropathy: 10/2023 eGFR>60 microalbumin 8.0 Hypoglycemia: Hyperglycemia: + urinary frequency, + nocturia, + polydypsia Diet: Breakfast: skips , Lunch: skips, Dinner: rice, canas, chicken or fish , Snacks: denies , Drinks throughout day: water Exercise: up and down stairs at home Rn Wellness - has not seen CDE at [facility]. Other specialists: Rhuemotologist, GI 2) Hypothyroidism Reports total thyroidectomy over 20 years. Denies biotin use Medications: denies weight loss currently on LT4 250mcg since 2023, Takes daily. Most recent TSH 04/05/24 0.32 Symptoms: Reports cold intolerance, weight loss, fatigue, dry skin. Denies diarrhea, constipation. Family History: mother has thyroid disease Patient is followed by GI for autoimmune hepatitis. [facility] screen Fibrosis-4 (Fib-4) Index for liver fibrosis (calculated on lab work done:10/2023 ) [ 1.18] points Advanced fibrosis excluded Approximate Fibrosis stage Medhat 0-1 *Use with caution in patients <35 or >65 years old, as the score has been shown to be less reliable in these patients. Prior Imaging abdominal ultrasound 2021 LIVER: The right hepatic lobe measures 18.4 cm in length. The liver contour is normal. Parenchymal echogenicity is normal. No focal hepatic lesion. There is no intrahepatic biliary duct dilatation seen. Right hepatic lobe enlargement. No focal lesion seen. 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 Maternal Aunt Breast cancer Brother Essential hypertension Substance abuse Pure hypercholesterolemia Other Mental health problem Social History Household Members: None Housing: House Alcohol intake: never Patient Tobacco Use Status: Former Tobacco user Tobacco use type: Cigarette Cigarettes Per Day: 7 Years Smoked: 6 e-Cigarette/Vaping Use: Never Used Second Hand Smoke Exposure: No Advance Directives Date on File: 07/15/20 service: No Current occupational status: disabled Current occupation: right hand Cognitive needs: No Hearing needs: No Vision needs: No Female Reproductive History Menstrual Age of Menarche: 12 Physical Exam Vital Signs: Last Vital Signs Pulse 86 08/15/24 11:19 BP 118/72 08/15/24 11:19 Pulse Ox 98 08/15/24 11:19 Oxygen Delivery Method Room Air 08/15/24 11:19 BMI result Body Mass Index 26.6 Const Other: Absence of Cushingoid features. Absence of acromegalic features. Neck exam reveals nl size thyroid about 15 gms. No thyroid nodules palpable. Heart S1 S2, Reg R/R. No M/R G. Skin exam reveals absence of vitiligo or acanthosis nigricans. No edema. Visual exam of foot performed. No ulcerations or open lesions. No inter digit maceration or fissuring. No onychomycosis, no callouses. Sensation intact to monofilament exam. Vibratory sensation is normal with 128 Hz tuning fork. Positive pulses. Results Reviewed Results Reviewed: Laboratory Last Values Glucose (Clinic) 175 mg/dL (60-115) H 08/15/24 11:28 Assessment & Plan Assessment & Plan (1) Type 2 diabetes mellitus: Code(s): E11.9 - Type 2 diabetes mellitus without complications Category: Medical Qualifiers: Diabetes mellitus residential insulin use: with residential use Diabetes mellitus complication status: with hyperglycemia Qualified Code(s): E11.65 - Type 2 diabetes mellitus with hyperglycemia; Z79.4 - skilled nursing (current) use of insulin Plan: 52-year-old type 2 diabetic with neuropathy poor diabetic control in the afternoon. She was asked to be more consistent with taking Tresiba. Add Humalog 12 units with the largest meal of the day Continue Jardiance The patient had an opportunity to ask questions regarding treatment plan. The patient expressed understanding and agreement with the above treatment plan. The patient is aware they should contact our office by phone for worsening glucose readings or for any low blood sugars which may warrant a change in diabetes medication. Compliance is encouraged with medications and any followup testing/consults which may have been ordered. Medications: New Accu-Chek Guide test strips (blood sugar diagnostic) twice daily 200 ea 6RF NS E11.65 - Type 2 diabetes mellitus with hyperglycemia, Z79.4 - skilled nursing (current) use of insulin lancets (FreeStyle Lancets) twice daily 100 ea 1RF insulin lispro 12 units (0.12 mL) subcut DAILY 6 mL 4RF 30 days NS Accu-Chek Guide Glucose Meter (blood-glucose meter) As directed 1 ea 0RF NS E11.65 - Type 2 diabetes mellitus with hyperglycemia, Z79.4 - skilled nursing (current) use of insulin Changed From pen needle, diabetic As directed 4x/day 150 ea 11RF E11.65 - Type 2 diabetes mellitus with hyperglycemia To pen needle, diabetic bid 100 ea 11RF E11.65 - Type 2 diabetes mellitus with hyperglycemia Discontinued blood-glucose meter Discontinued Reason: Insurance Denied As directed 1 ea 0RF E11.65 - Type 2 diabetes mellitus with hyperglycemia blood sugar diagnostic Discontinued Reason: Insurance Denied As directed 3 times a day 100 ea 11RF E11.65 - Type 2 diabetes mellitus with hyperglycemia lancets Discontinued Reason: Doctor's Order Use 1 lancet three times a day 100 ea 5RF E11.65 - Type 2 diabetes mellitus with hyperglycemia Lancets, Super Thin Discontinued Reason: Doctor's Order As directed 100 ea 6RF NS Patient Instructions: The patient was counseled to achieve a target A1C of 7% (154 avg). Fasting blood sugars should be 90-130 in the morning and less than 180 two hours after meals. Reviewed the relationship between poor diabetic control and the development of complications. Always carry a source of sugar Check your feet daily looking for any signs of infection, drainage, redness, ulceration and seek medical attention if this occurs. Break in shoes gradually and do not wear open-toed shoes or walk stocking footed or barefooted. Coding Level of Care Code Est Pt Level 4 (02233) Complex EM visit Add On G2211 Diagnoses Type 2 diabetes mellitus with hyperglycemia, with long-term current use of insulin E11.65; Z79.4 Diabetes mellitus residential insulin use: with buttermaker use Diabetes mellitus complication status: with hyperglycemia Time Spent (min) 30 Comment Time spent reviewing labs/provider notes, face to face, chart doc
[2024-08-15 11:19] VITALS: BP 118/72; PULSE 86; O2SAT 98; BMI 26.6
[2024-08-15 11:36] LABS: Glucose, Whole Blood 175 mg/dL (60-115)
--- OUTSIDE RECORDS SUMMARY | 2024-08-15 12:32 | XMS_ITS | Clinical Summary ---
Author Organization [employer] Address [address] [facility] 7t [place] [address] Care Team Providers Care Wood Tank Builder Name Role Phone Unavailable Primary Care Provider [...] Description 06/29/2024 3:00 PM EDT Office Visit [facility] [address] [place], [place] [phone] Amaury Duarte DMD 06/11/2024 11:00 AM EDT Office Visit [facility] [address] [place] [address] Amaury Duarte DMD 06/01/2024 1:30 PM EST Office Visit [facility] [address] [place] [address] Amaury Duarte DMD from Last 3 Months [...] Description 11/28/2024 2:00 PM EDT Office Visit [facility] [address] [place] [address] Emily Cortez Health Maintenance Due Date Last Done Comments CT Colonography 1965 Colonoscopy 1965 Colorectal Cancer Screening 1965 Depression Screening 1965 FIT DNA/Cologuard 1965 FIT 1965 FOBT 1965 HIV Screening 1965 SDOH Screening 1965 Sigmoidoscopy 1965 Disability Screening 1965 Alcohol/Substance Use Screening 1977 Hepatitis C [...] patient's age to complete this topic Meningococcal B Vaccine Aged Out No l onger eligible based on patient's age to complete [...]
--- OUTSIDE RECORDS SUMMARY | 2024-08-15 12:32 | XMS_ITS | Clinical Summary ---
Author Organization [facility] Address [address] [place] [address] Care Team Providers Care Assignment Desk Editor Name Role Phone Becca Sprague Primary Care Provider [phone] Allergies Active Allergy Reactions Criticality Noted Date [...] Team Description 06/26/2024 10:30 AM EDT Telehealth [facility] Transplant [facility] [address] [place] [address] Amber Islas MD Chronic autoimmune hepatitis (HCC) (Primary Dx) 06/22/2024 Orders Only [facility] Transplant Department [address] [place] [address] Provider, MD Namrata from Last 3 Months [...] Info) Description 10/09/2024 11:00 AM EDT Follow-Up [facility] [address] [place] [address] Amber Islas MD [address] [place] [address] Health Maintenance Due Date Last Done Comments [...] Screening Completed 09/15/2023 Procedures * Due to [place] [employer] law, this organization might not be sharing negative HIV tests. Procedure Name Priority Date/Time Associated Diagnosis Comments HEPATITIS C ANTIBODY W/REFLEX TO HCV RNA, QUANTITATIVE PCR Routine 09/15/2023 3:48 PM EDT Chronic autoimmune hepatitis from Last 3 Months or Most Recently Relevant to Health Maintenance Results * Due to [place] [employer] law, this organization might not be sharing negative HIV tests. * Hepatitis C Antibody w/Reflex to PCR (09/15/2023 3:48 PM EDT) Hepatitis C Antibody NON-REACT MICHEAL NON-REACT MICHEAL 09/15/2023 10:45 PM EDT [employer] Comment: HCV antibody was non-reactive. There is no laboratory evidence of HCV infection. In most cases, no further action is required. However, if recent HCV exposure is suspected, a test for HCV RNA (test code 31975) is suggested. For additional information please refer to http://education.[employer]/faq/FAV73f9 (This link is being provided for informational/ educational purposes only.) Blood Structure of peripheral vein / Unknown Venipuncture / Unknown 09/15/2023 3:48 PM EDT 09/15/2023 3:48 PM EDT Narrative [facility] - 09/15/2023 10:45 PM EDT [facility] Received Date: us Amber Islas MD LAB BLOOD ORDERABLES Final Resul t [facility] [address] [facility] 3rd Floor, [place] [address], [place] [phone] [facility] [address] [facility] 3rd Floor, [place] [address], [place] [phone] from Last 3 Months or Most Recently Relevant to Health Maintenance Insurance [facility] [place] [address] Advance Directives Healthcare Agents on File Name Relationship Healthcare Agent Relationshi p Communication Milena Avila Daughter Alternate Health Care Age nt Care Teams Assignment Desk Editor Relationship Specialty Start Date End Date Becca Sprague [address] [place] [address] [place] [address] PCP - General Internal Medicine 08/16/19
--- OUTSIDE RECORDS SUMMARY | 2024-08-15 12:32 | XMS_ITS | Referral Summary ---
Author Organization [facility] Address [address] [place] [address] Care Team Providers Care Machine Baster Name Role Phone Becca Sprague Primary Care Provider [phone] Encounters Date Type Department Care Team Description 06/26/2024 10:30 AM EDT Telehealth [facility] [address] [place] [address] Amber Islas MD Chronic autoimmune hepatitis (HCC) (Primary Dx) 06/22/2024 Orders Only [facility] Transplant Department [address] [place] [address] Provider, MD Namrata from Last 3 Months [...] Info) Description 10/09/2024 11:00 AM EDT Follow-Up [facility] [address] [place] [address] Amber Islas MD [address] [place], [place] [phone] Procedures * Due to [facility] law, this organization might not be sharing negative HIV tests. Procedure Name Priority Date/Time Associated Diagnosis Comments HEPATITIS C ANTIBODY W/REFLEX TO HCV RNA, QUANTITATIVE PCR Routine 09/15/2023 3:48 PM EDT Chronic autoimmune hepatitis from Last 3 Months or Most Recently Relevant to Health Maintenance Results * Due to [facility] law, this organization might not be sharing negative HIV tests. * Hepatitis C Antibody w/Reflex to PCR (09/15/2023 3:48 PM EDT) Hepatitis C Antibody NON-REACT MICHEAL NON-REACT MICHEAL 09/15/2023 10:45 PM EDT [employer] Comment: HCV antibody was non-reactive. There is no laboratory evidence of HCV infection. In most cases, no further action is required. However, if recent HCV exposure is suspected, a test for HCV RNA (test code 05362) is suggested. For additional information please refer to http://education.[employer]/faq/JJV46f1 (This link is being provided for informational/ educational purposes only.) Blood Structure of peripheral vein / Unknown Venipuncture / Unknown 09/15/2023 3:48 PM EDT 09/15/2023 3:48 PM EDT Narrative [facility] - 09/15/2023 10:45 PM EDT [facility] Received Date: Amber Islas MD LAB BLOOD ORDERABLES Final Resul t [facility] [address], [place] [address], [place] [phone] [email or web address] [facility] [address], [place] [address], [place] [phone] from Last 3 Months or Most Recently Relevant to Health Maintenance Insurance [facility] [place] [address] Advance Directives Healthcare Agents on File Name Relationship Healthcare Agent Relationshi p Communication Milena Avila Daughter Alternate Health Care Age nt Care Teams Machine Baster Relationship Specialty Start Date End Date Becca Sprague [address] [place] [address] [place] [address] PCP - General Internal Medicine 08/16/19
== END 2024-08-15 12:17 | disposition home or self-care (01) ==
LOC: HO.ENCR 11:14
PROVIDERS: PCP Internal Medicine; Visit Provider Nurse Practitioner Adult Health
DX: E11.65 Type 2 diabetes mellitus with hyperglycemia (principal); Z79.4 Long term (current) use of insulin
CPT/HCPCS: 99214; G2211

== ENCOUNTER → 2024-08-15 11:13 | Outpatient (BNVA) | payer MEDICARE, SELFPAY | PROVIDERS: PCP Internal Medicine; Visit Provider Nurse Practitioner Adult Health | DX: E11.65 Type 2 diabetes mellitus with hyperglycemia (principal); E11.40 Type 2 diabetes mellitus with diabetic neuropathy, unspecified; Z79.4 Long term (current) use of insulin | CPT/HCPCS: 82947; 99212 ==

== ENCOUNTER 2024-09-13 07:40 | Outpatient (REF) | payer MEDICARE, MEDICAID, SELFPAY ==
--- OUTSIDE RECORDS SUMMARY | 2024-09-13 07:43 | XMS_ITS | Clinical Summary ---
Author Organization [facility] Address [address] [place] [address] Care Team Providers Care Night Assistant Name Role Phone Becca Sprague Primary Care Provider [phone] Allergies Active Allergy Reactions Criticality Noted Date [...] Team Description 06/26/2024 10:30 AM EDT Telehealth [facility]plant Services [address] [place] [address] Amber Islas MD Chronic autoimmune hepatitis (HCC) (Primary Dx) 06/22/2024 Orders Only [facility] Transplant Department [address] [place] [address] ProviderNamrata MD from Last 3 Months Social History Tobacco [...] 62 09/15/2023 1:57 PM EDT Temperature 36.9 C (98.4 F) 09/15/2023 1:57 PM EDT Respiratory Rate 18 09/15/2023 1:57 PM EDT [...] Info) Description 10/09/2024 11:00 AM EDT Follow-Up [facility] [address] [place] [address] Amber Islas MD [address] [place] [address] Health Maintenance Due Date Last Done Comments [...] Screening Completed 09/15/2023 Procedures * Due to [place] [facility] law, this organization might not be sharing negative HIV tests. Procedure Name Priority Date/Time Associated Diagnosis Comments HEPATITIS C ANTIBODY W/REFLEX TO HCV RNA, QUANTITATIVE PCR Routine 09/15/2023 3:48 PM EDT Chronic autoimmune hepatitis from Last 3 Months or Most Recently Relevant to Health Maintenance Results * Due to [place] [facility] law, this organization might not be sharing negative HIV tests. * Hepatitis C Antibody w/Reflex to PCR (09/15/2023 3:48 PM EDT) Hepatitis C Antibody NON-REACT MICHEAL NON-REACT MICHEAL 09/15/2023 10:45 PM EDT [facility] Comment: HCV antibody was non-reactive. There is no laboratory evidence of HCV infection. In most cases, no further action is required. However, if recent HCV exposure is suspected, a test for HCV RNA (test code 64897) is suggested. For additional information please refer to http://education.[employer]/faq/BPD99q9 (This link is being provided for informational/ educational purposes only.) Blood Structure of peripheral vein / Unknown Venipuncture / Unknown 09/15/2023 3:48 PM EDT 09/15/2023 3:48 PM EDT Narrative [facility] - 09/15/2023 10:45 PM EDT [facility] Received Date: us Amber Islas MD LAB BLOOD ORDERABLES Final Resul t [facility] [address] [facility] [address], [place] [address], [facility] [address] [facility] [address], [place] [address], from Last 3 Months or Most Recently Relevant to Health Maintenance Insurance [facility] [address] Advance Directives Healthcare Agents on File Name Relationship Healthcare Agent Relationshi p Communication Milena Avila Daughter Alternate Health Care Age nt Care Teams Night Assistant Relationship Specialty Start Date End Date Becca Sprague [address] [place] [address] [place] [address] PCP - General Internal Medicine 08/16/19
[2024-09-13 08:44] LABS: Alanine Aminotransferase 15 U/L (0-31); Albumin Level 4.3 g/dL (3.5-5.0); Alkaline Phosphatase 103 U/L (39-117); Anion Gap 9 (12-20); Aspartate Amino Transferase 38 U/L (5-31); Bilirubin Total 0.3 mg/dL (0.0-1.0); Blood Urea Nitrogen 16 mg/dL (9-16); Calcium 9.6 mg/dL (8.4-10.2); Carbon Dioxide 28 mmol/L (22-29); Chloride 105 mmol/L (96-108); Cholesterol 177 mg/dL (<200); Estimated Glomerular Filt Rate > 60; Glucose Fasting 193 mg/dL (60-99); HDL Cholesterol 43 mg/dL (>40); LDL Cholesterol Calculated 88 mg/dL (<100); Potassium 4.1 mmol/L (3.3-5.1); Sodium 138 mmol/L (135-145); Total Protein 8.1 g/dL (6.5-8.0); Triglycerides 233 mg/dL (<150)
[2024-09-13 08:52] LABS: Thyroid Stimulating Hormone 1.76 uIU/mL (0.32-4.0)
[2024-09-13 08:57] LABS: Creatinine Urine 63.67 mg/dL; Microalbumin Urine < 5.0 mg/L
== END 2024-09-13 07:41 | disposition home or self-care (01) ==
LOC: HO.LAB 07:40
PROVIDERS: PCP Internal Medicine; Visit Provider Internal Medicine
DX: E78.5 Hyperlipidemia, unspecified (principal); R80.9 Proteinuria, unspecified; E55.9 Vitamin D deficiency, unspecified; E11.65 Type 2 diabetes mellitus with hyperglycemia; Z79.4 Long term (current) use of insulin; E06.3 Autoimmune thyroiditis
CPT/HCPCS: 36415; 80053; 80061; 82306; 82570; 84443

== ENCOUNTER 2024-09-26 13:51 | Outpatient (AMB) | payer MEDICARE, MEDICAID, SELFPAY ==
--- NOTE | 2024-09-26 08:01 | MHC.OFFVIS ---
Vital Signs 09/26/24 14:04 Height 5 ft 7 in Weight 167 lb 8.821 oz BMI 26.2 BP 122/78 Blood Pressure Location Rt brachial Position Sitting Pulse 96 Pulse Source Pulse Oximeter Pulse Oximetry (%) 97 Oxygen Delivery Method Room Air Intake Visit Reasons: DM Intake Note: Patient presents today for a follow-up on Type 2 Diabetes Mellitus: Last Diabetic eye exam was on: 07/17/2024, [facility] Last Podiatry exam was on: Patient does not see a Aircraft Riveter Most recent HbA1c: 10.7%, 08/06/2024 Random Glucose- 244 mg/dL, Today Home Energy Inspector Required: No Accompanied by: Self / Same As Patient Allergies gadobutrol (From GADAVIST) Allergy (Severe, Verified 09/26/24 14:08) ANAPHYLAXIS hydroxychloroquine (Plaquenil) Allergy (Intermediate, Verified 09/26/24 14:08) rash,facial swelling levofloxacin (From LEVAQUIN) Allergy (Intermediate, Verified 09/26/24 14:08) ITCHY RASH pregabalin (From LYRICA) Allergy (Intermediate, Verified 09/26/24 14:08) STOMACH UPSET, Swelling tramadol Allergy (Intermediate, Verified 09/26/24 14:08) abdominal pain azathioprine Adverse Reaction (Intermediate, Verified 09/26/24 14:08) Nausea and Vomiting insulin aspart (From Novolog U-100 Insulin aspart) Adverse Reaction (Intermediate, Verified 09/26/24 14:08) chills, shaking, sweating, weakness and tachycardia Hrvfczg-[id number]-VgT Reductase Inhibitor Adverse Reaction (Intermediate, Verified 09/26/24 14:08) transamimitis HPI Comments Details: Patient is a 59-year-old female with DM type 2 diagnosed 2013 who presents for management of diabetes and hypothyroidism. She was last seen 08/15/2024 at which time Humalog 12 units was added to her dinner meal. This was dropped to 8 units after she had a low. Hemoglobin A1c 10.7% 08/15/2024, previous 9.2% 10/17/2024 She was diagnosed with type 2 diabetes Previous medication: She did not tolerate Trulicity due to side effects, Metformin 1000mg bid caused GI upset She felt she had too much weight loss and no appetite with ozempic. She would at times not eat all day Diabetes medications: Tresiba 175 unit if over 200. If less she is taking 80 units (has not been receptive to changing this) She has been using a formula where she takes her blood sugar divides it by 2 and takes that him on a Tresiba. I advised her that this was not a rational approach for diabetes management. Humalog 8 units with supper meal had a low after supper with 12 units Jardiance 10mg daily Ozempic 0.5mg does not wish to increase because at the 1 mg dosage she had absolutely no appetite Glucose average 207 A.m. readings 70-175 1 reading at 70 1 reading higher at 261 Afternoons in the mid 200s No retinopathy last eye exam 06/2024 + Neuropathy:Symptoms reported: + numbness, tingling, cramping in lower extremities. Reports RLS No Nephropathy: 10/2023 eGFR>60 microalbumin 8.0 Hypoglycemia: Hyperglycemia: + urinary frequency, + nocturia, + polydypsia Diet: Breakfast: skips , Lunch: skips, Dinner: rice, canas, chicken or fish , Snacks: denies , Drinks throughout day: water Exercise: up and down stairs at home Package Sorter - has not seen CDE at [facility]. Other specialists: Rhuemotologist, GI 2) Hypothyroidism Reports total thyroidectomy over 20 years. Denies biotin use Medications: denies weight loss currently on LT4 250mcg since 2023, Takes daily. Most recent TSH 04/05/24 0.32 Symptoms: Reports cold intolerance, weight loss, fatigue, dry skin. Denies diarrhea, constipation. Family History: mother has thyroid disease Patient is followed by GI for autoimmune hepatitis. [facility] screen Fibrosis-4 (Fib-4) Index for liver fibrosis (calculated on lab work done:10/2023 ) [ 1.18] points Advanced fibrosis excluded Approximate Fibrosis stage Medhat 0-1 *Use with caution in patients <35 or >65 years old, as the score has been shown to be less reliable in these patients. Prior Imaging abdominal ultrasound 2021 LIVER: The right hepatic lobe measures 18.4 cm in length. The liver contour is normal. Parenchymal echogenicity is normal. No focal hepatic lesion. There is no intrahepatic biliary duct dilatation seen. Right hepatic lobe enlargement. No focal lesion seen. 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-3 activity and stage 3-4 fibrosis biopsy 11/2021) [facility] Medical History Pulmonary emphysema Hypothyroidism Type 2 diabetes mellitus Osteoarthritis of hand, left Chronic constipation Hypoactive bowel sounds Hand numbness Autoimmune thyroiditis Abdominal pain Inflammatory arthritis Breast mass, right Lung cyst Bilateral hand numbness Neck pain Dyslipidemia Post-surgical hypothyroidism Diabetic polyneuropathy associated with type 2 diabetes mellitus [facility] (current) use of insulin Chronic idiopathic constipation Low vitamin D level Weight loss GERD (gastroesophageal reflux disease) Diabetes type 2, uncontrolled Fibromyalgia Insomnia Surgical History Hx of arthroscopy of left knee History of liver biopsy Hx of removal of cyst History of hysterectomy History of thyroidectomy, total History of esophagogastroduodenoscopy (EGD) Hx of colonoscopy (1998) Family History Father Status post liver transplant, biliary anastomotic size mismatch Brother Cardiac arrest Mother No problems noted. Maternal Aunt Breast cancer Brother Essential hypertension Substance abuse Pure hypercholesterolemia Other Mental health problem Social History Household Members: None Housing: House Alcohol intake: never Patient Tobacco Use Status: Former Tobacco user Tobacco use type: Cigarette Cigarettes Per Day: 7 Years Smoked: 6 e-Cigarette/Vaping Use: Never Used Second Hand Smoke Exposure: No Advance Directives Date on File: 07/15/20 service: No Current occupational status: disabled Current occupation: right hand Cognitive needs: No Hearing needs: No Vision needs: No Female Reproductive History Menstrual Age of Menarche: 12 Physical Exam Vital Signs: Last Vital Signs Pulse 96 09/26/24 14:04 BP 122/78 09/26/24 14:04 Pulse Ox 97 09/26/24 14:04 Oxygen Delivery Method Room Air 09/26/24 14:04 BMI result Body Mass Index 26.2 Results Reviewed Results Reviewed: Laboratory Last Values Glucose (Clinic) 244 mg/dL (60-115) H 09/26/24 14:12 Assessment & Plan Assessment & Plan (1) Type 2 diabetes mellitus: Code(s): E11.9 - Type 2 diabetes mellitus without complications Category: Medical Qualifiers: Diabetes mellitus chcf insulin use: with chcf use Diabetes mellitus complication status: with hyperglycemia Qualified Code(s): E11.65 - Type 2 diabetes mellitus with hyperglycemia; Z79.4 - [facility] (current) use of insulin Plan: Type 2 diabetic with poor control. She declines changing her Tresiba dosing today. She will continue with all her current medications. She has finally agreed to go on a [employer] Liza 3+ sensor and I will send both the sensor and reader through DME she will call the Amara Rushing CDE when she is ready to get trained. The patient had an opportunity to ask questions regarding treatment plan. The patient expressed understanding and agreement with the above treatment plan. The patient is aware they should contact our office by phone for worsening glucose readings or for any low blood sugars which may warrant a change in diabetes medication. Compliance is encouraged with medications and any followup testing/consults which may have been ordered. Follow up new cotton grader in 6 weeks Patient Instructions: The patient had an opportunity to ask questions regarding treatment plan. The patient expressed understanding and agreement with the above treatment plan. The patient is aware they should contact our office by phone for worsening glucose readings or for any low blood sugars which may warrant a change in diabetes medication. Compliance is encouraged with medications and any followup testing/consults which may have been ordered. Check your feet daily looking for any signs of infection, drainage, redness, ulceration and seek medical attention if this occurs. Break in shoes gradually and do not wear open-toed shoes or walk stocking footed or barefooted. Coding Level of Care Code Est Pt Level 4 (14058) Complex EM visit Add On G2211 Diagnoses Type 2 diabetes mellitus with hyperglycemia, with long-term current use of insulin E11.65; Z79.4 Diabetes mellitus chcf insulin use: with watermelon inspector use Diabetes mellitus complication status: with hyperglycemia Time Spent (min) 30 Comment Time spent reviewing labs/provider notes, face to face, chart doc
[2024-09-26 14:04] VITALS: BP 122/78; PULSE 96; O2SAT 97; BMI 26.2
[2024-09-26 14:16] LABS: Glucose, Whole Blood 244 mg/dL (60-115)
--- OUTSIDE RECORDS SUMMARY | 2024-09-26 14:25 | XMS_ITS | Clinical Summary ---
Author Organization [employer] Address [address] [facility] [address] [place] [address] Care Team Providers Care Piling Setter Name Role Phone Unavailable Primary Care Provider [...] Description 06/29/2024 3:00 PM EDT Office Visit [facility] [address] [place], [place] [phone] Amaury Duarte DMD from Last 3 Months [...] Description 11/28/2024 2:00 PM EDT Office Visit [facility] [address] [place] [address] Emily Cortez Health Maintenance Due Date Last [...] COVID-19 Vaccine ( season) 2023 09/13/2020, 08/23/2020 Dental Oral Exam 07/30/2024 01/30/2024, 01/05/2023 Dental Prophylaxis 07/30/2024 01/30/2024 Dental X-Ray: Bitewings 11/03/2024 11/03/2023, 01/05 Influenza Vaccine (Season Ended) 2024 12/31/2021, 01/15/2021, 02/12/2020, Additional history exists Tobacco Screening 06/29/2025 06/29/2024 Dental X-Ray: Full [...] AND TEETH) Routine 06/29/2024 3:00 PM EDT PROPHYLAXIS - ADULT Routine 01/30/2024 3 :00 [...] Most Recently Relevant to Health Maintenance Insurance [facility] MEDICAID STAND ADULT
--- OUTSIDE RECORDS SUMMARY | 2024-09-26 14:25 | XMS_ITS | Clinical Summary ---
Author Organization [facility] Address [address] [place] [address] Care Team Providers Care Envelope Cutter Name Role Phone Becca Sprague Primary Care Provider [phone] Allergies Active Allergy Reactions Criticality Noted Date [...] Info) Description 10/09/2024 11:00 AM EDT Follow-Up [facility] Trans[facility] [address] [place] [address] Amber Islas MD [address] [place] [address] Health Maintenance Due Date Last Done Comments [...] Health Jessica ual Screening 03/28/2024 Influenza Vaccine (#1) 2024 2, 01/15/2021, 02/12/2020, Additional history exists Colon Cancer Screening 10/20/2025 Colonoscopy 10/20/2025 10/21/2015 DTaP,Tdap,and Td Vaccines (2 - Td or Tdap) 05/19/2026 05/19/2016 RSV Vaccine (60+ years old a nd patients) (1 - 1-dose 75+ series) 2040 Tobacco Screening 03/28/2042 09/15/2023 Hepatitis C Screening Completed 09/15/2023 Procedures * Due to [place] [employer] law, this organization might not be sharing negative HIV tests. Procedure Name Priority Date/Time Associated Diagnosis Comments HEPATITIS C ANTIBODY W/REFLEX TO HCV RNA, QUANTITATIVE PCR Routine 09/15/2023 3:48 PM EDT Chronic autoimmune hepatitis from Last 3 Months or Most Recently Relevant to Health Maintenance Results * Due to [place] [employer] law, this organization might not be sharing negative HIV tests. * Hepatitis C Antibody w/Reflex to PCR (09/15/2023 3:48 PM EDT) Hepatitis C Antibody NON-REACT MICHEAL NON-REACT MICHEAL 09/15/2023 10:45 PM EDT [employer] Comment: HCV antibody was non-reactive. There is no laboratory evidence of HCV infection. In most cases, no further action is required. However, if recent HCV exposure is suspected, a test for HCV RNA (test code 68702) is suggested. For additional information please refer to http://education.[employer]us/faq/CAS99u6 (This link is being provided for informational/ educational purposes only.) Blood Structure of peripheral vein / Unknown Venipuncture / Unknown 09/15/2023 3:48 PM EDT 09/15/2023 3:48 PM EDT Narrative [facility] - 09/15/2023 10:45 PM EDT [facility] Received Date: us Amber Islas MD LAB BLOOD ORDERABLES Final Resul t [facility] [address] [facility] 3rd Floor, [place] [address], [place] [phone] [facility] [address] [facility] 3rd Floor, [place] [address], [place] [phone] from Last 3 Months or Most Recently Relevant to Health Maintenance Insurance [facility] Advance Directives Healthcare Agents on File Name Relationship Healthcare Agent Relationshi p Communication Milena Avila Daughter Alternate Health Care Age nt Care Teams Envelope Cutter Relationship Specialty Start Date End Date Becca Sprague [address] Armida [place], [place] [address] PCP - General Internal Medicine 08/16/19
== END 2024-09-26 14:44 | disposition home or self-care (01) ==
LOC: HO.ENCR 13:52
PROVIDERS: PCP Internal Medicine; Visit Provider Nurse Practitioner Adult Health
DX: E11.65 Type 2 diabetes mellitus with hyperglycemia (principal); Z79.4 Long term (current) use of insulin
CPT/HCPCS: 99214; G2211

== ENCOUNTER → 2024-09-26 13:51 | Outpatient (BNVA) | payer MEDICARE, MEDICAID, SELFPAY | PROVIDERS: PCP Internal Medicine; Visit Provider Nurse Practitioner Adult Health | DX: E11.65 Type 2 diabetes mellitus with hyperglycemia (principal); Z79.4 Long term (current) use of insulin | CPT/HCPCS: 82947; 99212 ==

== ENCOUNTER 2024-10-04 19:08 | Emergency (ER) | payer MEDICARE, MEDICAID, SELFPAY ==
--- NOTE | ~2024-10-04 | CT_ITS ---
CLINICAL HISTORY: appy?, med tx for appy 4 2024, no surgery CT abdomen and pelvis with contrast Comparison: CT/[place]/SR - CT ABDOMEN PELVIS WO IV CON - 01/15/24 19:16 EDT Findings: The lung bases are clear. The gallbladder is surgically absent. There is mild intrahepatic biliary ductal dilatation. Liver, spleen, pancreas and adrenal glands are within normal limits. The kidneys enhance symmetrically and are non hydronephrotic. No bowel obstruction, pneumoperitoneum, or pneumatosis. Pelvic contents unremarkable. Normal appendix. The bones are intact. IMPRESSION: No acute findings. Visualized appendix is normal This document has been electronically signed by: Rodríguez Yuan MD, PHD on 10/04/2024 23:32:33
[2024-10-04 19:43] VITALS: BP 139/57; PULSE 52; RESP 16; TEMP 36.1; O2SAT 100; BMI 26.8
--- NOTE | 2024-10-04 19:47 | ED_ITS ---
HPI - Abdominal Pain General Chief Complaint: Abdominal Pain Stated Complaint: abd pain Time Seen by Provider: 10/04/24 20:11 Source: patient Limitations: no limitations History of Present Illness ED Provider: Sravan Shaw PA-C HPI narrative: 59-year-old female with a history of hypertension, hyperlipidemia, diabetes, morbid obesity, GERD, hypothyroidism, arthritis, fibromyalgia, chronic pain with admission to the hospital for suspect early appendicitis December of 2023, presents with the abdominal pain. Patient states she has had ongoing abdominal discomfort for the past 2 weeks. Pain is central and radiates to the right lower quadrant. Associated nausea vomiting diarrhea. Denies fever. Denies sick contacts with similar symptoms. Denies recent hospitalization, travel or use of antibiotics. Related Data Home Medications ?Medication ?Instructions ?Recorded ?Confirmed ropinirole 0.25 mg tablet 0.25 mg PO BEDTIME PRN Restl ess 01/16/24 08/06/24 Leg(S) Previous Rx's ?Medication ?Instructions ?Recorded loratadine 10 mg capsule 10 mg PO DAILY 90 days #90 c aps 06/22/21 flash glucose scanning reader #1 ea 06/15/22 (FreeStyle Liza 2 [place]) flash glucose sensor (FreeStyle #2 ea 06/15/22 Liza 2 Sensor kit) albuterol sulfate 90 mcg/actuation 2 puff inhalation Q 6H PRN 10/29/22 aerosol inhaler bronchospasm 30 days #6.7 gr ams bed rails #1 ea 02/22/23 underpads (Bed Underpads) #100 ea 03/15/23 ondansetron HCl 8 mg tablet 8 mg PO DAILY PRN nausea a nd 08/16/23 vomiting 30 days #30 tabs rosuvastatin 10 mg tablet 10 mg PO DAILY 90 days #90 t abs 11/15/23 docusate sodium 100 mg capsule 100 mg PO BID #60 caps 01/17/24 (Colace) alendronate 70 mg tablet 70 mg PO QWEEK 90 days #13 t abs 01/27/24 mercaptopurine 50 mg tablet 50 mg PO DAILY #90 tabs ergocalciferol (vitamin D2) 1,250 1,250 mcg PO WE 90 d ays #13 caps 04/01/24 mcg (50,000 unit) capsule bath bench with back #1 ea 04/09/24 cholecalciferol (vitamin D3) 50 50 mcg PO DAILY 90 day s #90 caps 04/09/24 mcg (2,000 unit) capsule levothyroxine 200 mcg tablet 200 mcg PO DAILY 90 days #90 tabs 04/09/24 bismuth subsalicylate 262 mg 2 tab PO QID 14 days #112 tabs 07/02/24 chewable tablet metronidazole 250 mg tablet 250 mg PO QID 14 days #56 tabs 07/02/24 omeprazole 20 mg capsule,delayed 20 mg PO BID 14 days #28 caps 07/02/24 release tetracycline 500 mg capsule 500 mg PO QID 14 days #56 caps 07/02/24 insulin degludec 200 unit/mL (3 175 unit (0.875 mL) kulkarni bcut BID 90 07/17/24 mL) subcutaneous pen (Tresiba days #157.5 mL FlexTouch U-200 insulin) levocetirizine 5 mg tablet 5 mg PO DAILY PRN allergy s ymptoms 08/06/24 30 days #30 tabs fluconazole 150 mg tablet 150 mg PO Q3D 2 doses #2 tab s 08/07/24 Accu-Chek Guide Glucose Meter #1 ea 08/15/24 (blood-glucose meter) Accu-Chek Guide test strips (blood #200 ea 08/15/24 sugar diagnostic) empagliflozin 10 mg tablet 10 mg PO DAILY 30 days #30 tabs 08/15/24 (Jardiance) insulin lispro 100 unit/mL 12 unit (0.12 mL) subcut DA NIC 30 08/15/24 subcutaneous pen days #6 mL pen needle, diabetic 32 gauge x #100 ea 08/15/24 semaglutide 0.25 mg or 0.5 mg (2 0.5 mg (0.736 mL) sub cut QWEEK 4 09/02/24 mg/3 mL) subcutaneous pen injector weeks #2.944 mL (Ozempic) famotidine 20 mg tablet 20 mg PO BEDTIME #90 tabs oxycodone 10 mg tablet 10 mg PO Q8H PRN pain 30 day s #90 09/17/24 tabs lancets (Accu-Chek Softclix #100 ea 09/21/24 Lancets) ibuprofen 600 mg tablet 600 mg PO TID PRN Pain, Mild 30 09/25/24 days #90 tabs zolpidem 10 mg tablet 10 mg PO BEDTIME insomnia 30 days 09/26/24 #30 tabs dicyclomine 20 mg tablet 20 mg PO TID PRN abdominal p ain 10/04/24 #10 tabs levothyroxine 50 mcg tablet 50 mcg PO DAILY 90 days #9 0 tabs 10/04/24 ondansetron 4 mg disintegrating 4 mg PO Q8H PRN nausea and 10/04/24 tablet vomiting #10 tabs Allergies Allergy/AdvReac Type Severity Reaction Status Date / Time gadobutrol (From GADAVIST) Allergy Severe ANAPHYLAXIS Verified 10/04/24 19:44 hydroxychloroquine Allergy Intermediate rash,facial Verified 10/04/24 19:44 (Plaquenil) swelling levofloxacin (From LEVAQUIN) Allergy Intermediate ITCHY RASH Verified 10/04/24 19:44 pregabalin (From LYRICA) Allergy Intermediate STOMACH Verified 10/04/24 19:44 UPSET, Swelling tramadol Allergy Intermediate abdominal Verified 10/04/24 19:44 pain azathioprine AdvReac Intermediate Nausea and Verified 10/04/24 19:44 Vomiting insulin aspart (From Novolog AdvReac Intermediate chills, Verified 10/04/24 19:44 U-100 Insulin aspart) shaking, sweating, weakness and tachycardia [id number] Reductase AdvReac Intermediate transamimit Verified 10/04/24 19:44 Inhibitor is Review of Systems Review of Systems Yes all other systems are reviewed and are negative Constitutional: Denies fatigue and Denies fever(s) Cardiovascular: Denies chest pain and Denies dyspnea Respiratory: Denies cough and Denies dyspnea Gastrointestinal: Reports abdominal pain, Reports diarrhea, Reports nausea and Reports vomiting Endocrine: Denies fatigue PMFSH Past Medical History Attestation statement: The following information was validated with the patient. Medical History Pulmonary emphysema Hypothyroidism Type 2 diabetes mellitus Osteoarthritis of hand, left Chronic constipation Hypoactive bowel sounds Hand numbness Autoimmune thyroiditis Abdominal pain Inflammatory arthritis Breast mass, right Lung cyst Bilateral hand numbness Neck pain Dyslipidemia Post-surgical hypothyroidism Diabetic polyneuropathy associated with type 2 diabetes mellitus nursing home (current) use of insulin Chronic idiopathic constipation Low vitamin D level Weight loss GERD (gastroesophageal reflux disease) Diabetes type 2, uncontrolled Fibromyalgia Insomnia Surgical History Hx of arthroscopy of left knee History of liver biopsy Hx of removal of cyst History of hysterectomy History of thyroidectomy, total History of esophagogastroduodenoscopy (EGD) Hx of colonoscopy (1998) Family History Family History Father Status post liver transplant, biliary anastomotic size mismatch Brother Cardiac arrest Mother No problems noted. Maternal Aunt Breast cancer Brother Essential hypertension Substance abuse Pure hypercholesterolemia Other Mental health problem Social History Social History Household Members: None Housing: House Alcohol intake: never Patient Tobacco Use Status: Former Tobacco user Tobacco use type: Cigarette Cigarettes Per Day: 7 Years Smoked: 6 Smoked in Last 30 Days: No e-Cigarette/Vaping Use: Never Used Second Hand Smoke Exposure: No Use of substances other than those prescribed or required for medical reasons: No Advance Directives: Yes Advance Directives on File: Yes Advance Directives Date on File: 07/15/20 service: No Current occupational status: disabled Current occupation: right hand Cognitive needs: No Hearing needs: No Vision needs: No Physical Exam ED Vital Signs: Vital Signs - 24 hr 10/04/24 19:43 10/04/24 22:30 10/04/24 23:54 Temperature 97 F 98.3 F Pulse Rate 52 50 45 L Respiratory Rate 16 18 18 Blood Pressure 139/57 L 132/60 125/60 Pulse Oximetry 100 98 99 Oxygen Delivery Method Room Air Room Air Room Air BMI result Body Mass Index 26.8 Const Other: Alert Orientation/consciousness: patient oriented x3 Resp Effort & Inspection: normal respiratory effort Cardio Other: Normal peripheral perfusion GI Other: Abdomen is soft, nondistended, generalized tenderness to palpation, without objective guarding, no focal regions of pain with the palpation Skin Other: Warm dry no rash Neuro General: patient oriented x3, gait normal, no focal motor deficits and CN's II- XI intact bilaterally Psych Other: Cooperative Course Course Course Narrative: This is an RME: Additional HPI, ROS, PE not included below will be deferred to primary provider. RME assessment and note performed by: Michaela Squires PA-C This is a 59-year-old female who presents emergency department with complaints of right-sided abdominal pain for the last month. Worsening over the last several weeks, with the associated nausea, vomiting, diarrhea. History of appendicitis without removal. Also felt dizzy. No chest pain. Plan: Labs, UA, EKG, further ER evaluation needed. Reevaluation(s) Reevaluation #1: Discussed findings with the patient, I asked if she was on a weight loss medications to said she is on Ozempic. However she states she has not been on it for a month. She has GI follow up, I have suggested she follow up with them. Time: 23:56 Medical Decision Making Medical Decision Making MDM Narrative: 59-year-old female with a history of hypertension, hyperlipidemia, diabetes, morbid obesity, GERD, hypothyroidism, arthritis, fibromyalgia, chronic pain with admission to the hospital for suspect early appendicitis December of 2023, presents with the abdominal pain. Patient states she has had ongoing abdominal discomfort for the past 2 weeks. Pain is central and radiates to the right lower quadrant. Associated nausea vomiting diarrhea. Denies fever. Denies sick contacts with similar symptoms. Denies recent hospitalization, travel or use of antibiotics. Problem: Diabetes History: Per patient I have considered the following differential diagnoses: Appendicitis, sigmoid diverticulitis, viral gastroenteritis, C diff, traveler's diarrhea Plan: Given distribution of discomfort in nature of symptoms, I am considering appendicitis given her history, considering sigmoid diverticulitis given distribution in nature of symptoms. We will be obtaining a CT scan. Screening labs already obtained from triage. Giving fluid morphine and Zofran . To note she has no risk factors for C diff or traveler's diarrhea. She also has no sick contacts with same symptoms, viral gastro less likely. I have independently reviewed the following tests: Labs: No leukocytosis, not anemic, no electrolyte abnormality noted, urine not infected CT abdomen and pelvis:Findings: The lung bases are clear. The gallbladder is surgically absent. There is mild intrahepatic biliary ductal dilatation. Liver, spleen, pancreas and adrenal glands are within normal limits. The kidneys enhance symmetrically and are non hydronephrotic. No bowel obstruction, pneumoperitoneum, or pneumatosis. Pelvic contents unremarkable. Normal appendix. The bones are intact. IMPRESSION: No acute findings. Visualized appendix is normal Lab Data 10/04/24 19:57 10/04/24 19:57 Labs: Lab Results 10/04/24 10/04/24 Range/Units 19:57 20:04 WBC 4.9 (4.8-10.8) X10*3/uL RBC 4.29 (4.20-5.50) X10*6/uL Hgb 13.1 (12.0-16.0) g/dl Hct 37.0 (37.0-47.0) % MCV 86.2 (80.0-98.0) fL MCH 30.5 (27.0-33.0) pg MCHC 35.4 H (31.0-35.0) g/dl RDW 12.9 (11.0-16.0) % Plt Count 220 (160-400) X10*3/uL MPV 8.7 L (9.4-12.3) fL Immature Gran % (Auto) 0.2 (0.0-0.4) % Neut % (Auto) 56.8 (45-73) % Lymph % (Auto) 36.7 (20-40) % [place] % (Auto) 5.5 (2-11) % Eos % (Auto) 0.4 (0-4) % Baso % (Auto) 0.4 (0-2) % Lymph # (Auto) 1.8 (1.2-4.9) X10*3/uL [place] # (Auto) 0.3 (0.1-1.2) X10*3/uL Eos # (Auto) 0.0 (0.0-0.4) X10*3/uL Baso # (Auto) 0.0 (0.0-0.2) X10*3/uL Abs Immat Gran (auto) 0.01 (0.00-0.03) X10*3/uL Absolute Neuts (auto) 2.8 (2.0-8.3) x10*3/uL Absolute Nucleated RBC 0.000 (0.0-0.012) X10*3/uL Nucleated RBC % (auto) 0.0 (0.0-0.2) /100WBC Sodium 138 (135-145) mmol/L Potassium 3.8 (3.3-5.1) mmol/L Chloride 106 (96-108) mmol/L Carbon Dioxide 27 (22-29) mmol/L Anion Gap 9 L (12-20) BUN 11 (9-16) mg/dL Creatinine 0.80 (0.5-1.4) mg/dL Estim Creat Clear Calc 81.3 Estimated GFR > 60 Random Glucose 133 H (60-115) mg/dL Calcium 9.7 (8.4-10.2) mg/dL Magnesium 2.3 (1.6-2.6) mg/dL Total Bilirubin 0.9 (0.0-1.0) mg/dL Direct Bilirubin 0.3 (0.0-0.5) mg/dL AST 19 (5-31) U/L ALT 14 (0-31) U/L Alkaline Phosphatase 107 (39-117) U/L Troponin I High Sens < 2.7 (<3.5-17.0) ng/L Total Protein 8.7 H (6.5-8.0) g/dL Albumin 4.5 (3.5-5.0) g/dL Lipase 14 (8-78) U/L Urine Color Yellow Urine Appearance Clear Urine pH 8.5 (5.0-9.0) Ur Specific [place] 1.020 (1.005-1.025) Urine Protein Trace (Neg-Trace) mg/dL Urine Glucose (UA) Negative (Negative) mg/dL Urine Ketones 15 (Negative) mg/dL Urine Blood Negative (Negative) Urine Nitrite Negative (Negative) Ur Leukocyte Esterase Negative (Negative) Medications Administered Discontinued Medications Generic Name Dose Route Start Last Admin Trade Name Freq PRN Reason Stop Dose Admin Sodium Chloride 1,000 mls @ 999 mls/hr 10/04/24 20:45 10/04/24 21:58 Ns IV 10/04/24 21:45 Infused .Q1H1M JEANETTE Infusion Iohexol 85 ml 10/04/24 22:37 10/04/24 22:38 Iohexol 350 Mg/Ml 100 Ml Infus..Btl IV 10/04/24 22:38 85 ml ONCE ONE Administration Morphine Sulfate 4 mg 10/04/24 20:38 10/04/24 20:51 Morphine Sulfate 4 Mg/Ml Cartridge IVPUSH 10/04/24 20:39 4 mg ONCE ONE Administration Protocol Ondansetron HCl 4 mg 10/04/24 20:38 10/04/24 20:50 Ondansetron Hcl 4 Mg/2 Ml Vial IVPUSH 10/04/24 20:39 4 mg ONCE ONE Administration Discharge Plan Discharge Clinical Impression: Diarrhea, Nausea & vomiting Patient Disposition: Home, Self-Care Instructions: Chronic Diarrhea (ED), Acute Abdominal Pain (ED) Additional Instructions: All of your screening labs were normal the CT scan of the abdomen and pelvis was normal too. See home care instructions. Uses Zofran as needed for nausea use the dicyclomine as needed for abdominal cramping and diarrhea. You should follow up with your systems support officer, call to schedule an appointment. Prescriptions: New ondansetron 4 mg tablet,disintegrating 4 mg PO Q8H PRN (Reason: nausea and vomiting) Qty: 10 0RF dicyclomine 20 mg tablet 20 mg PO TID PRN (Reason: abdominal pain) Qty: 10 0RF No Action loratadine 10 mg capsule 10 mg PO DAILY 90 Days Qty: 90 3RF albuterol sulfate 90 mcg/actuation HFA aerosol inhaler 2 puff inhalation Q6H PRN (Reason: bronchospasm) 30 Days Qty: 6.7 2RF (DME) underpads [Bed Underpads] Pad See Rx Instructions .Route Qty: 100 11RF Rx Instructions: As directed ondansetron HCl 8 mg tablet 8 mg PO DAILY PRN (Reason: nausea and vomiting) 30 Days Qty: 30 0RF rosuvastatin 10 mg tablet 10 mg PO DAILY 90 Days Qty: 90 2RF alendronate 70 mg tablet 70 mg PO QWEEK 90 Days Qty: 13 1RF mercaptopurine 50 mg tablet 50 mg PO DAILY Qty: 90 2RF ergocalciferol (vitamin D2) 1,250 mcg (50,000 unit) capsule 1,250 mcg PO WE 90 Days Qty: 13 1RF bismuth subsalicylate 262 mg tablet,chewable 2 tab PO QID 14 Days Qty: 112 0RF omeprazole 20 mg capsule,delayed release(DR/EC) 20 mg PO BID 14 Days Qty: 28 0RF tetracycline 500 mg capsule 500 mg PO QID 14 Days Qty: 56 0RF metronidazole 250 mg tablet 250 mg PO QID 14 Days Qty: 56 0RF insulin degludec [Tresiba FlexTouch U-200] 200 unit/mL (3 mL) insulin pen 175 unit subcut BID 90 Days Qty: 157.5 1RF Rx Instructions: patient states she takes 175 units BID but will split dose in half based off of blood sugar fluconazole 150 mg tablet 150 mg PO Q3D Qty: 2 0RF Jardiance 10 mg tablet 10 mg PO DAILY 30 Days Qty: 30 4RF Ozempic 0.25 mg or 0.5 mg (2 mg/3 mL) pen injector 0.5 mg subcut QWEEK 28 Days Qty: 2.944 0RF famotidine 20 mg tablet 20 mg PO BEDTIME Qty: 90 0RF oxycodone 10 mg tablet 10 mg PO Q8H PRN (Reason: pain) 30 Days Qty: 90 0RF Rx Instructions: Partial Fill upon patient request. patient states she usually only takes 5mg (DME) lancets [Accu-Chek Softclix Lancets] Misc See Rx Instructions .Route Qty: 100 6RF Rx Instructions: As directed bid for use with accucheck guide meter drums were initially dispensed and do not go with her lancing device ibuprofen 600 mg tablet 600 mg PO TID PRN (Reason: Pain, Mild) 30 Days Qty: 90 0RF zolpidem 10 mg tablet 10 mg PO BEDTIME 30 Days Qty: 30 0RF levothyroxine 50 mcg tablet 50 mcg PO DAILY 90 Days Qty: 90 0RF ropinirole 0.25 mg tablet 0.25 mg PO BEDTIME PRN (Reason: Restless Leg(S)) Rx Instructions: administer 1-3 hours before bedtime docusate sodium [Colace] 100 mg capsule 100 mg PO BID Qty: 60 2RF (DME) bed rails See Rx Instructions .Route .MEDSUPPLY Qty: 1 0RF Rx Instructions: As directed (DME) FreeStyle Liza 2 Sensor Kit See Rx Instructions .Route Qty: 2 5RF Rx Instructions: As directed -change every 14 days (DME) FreeStyle Liza 2 [place] Misc See Rx Instructions .Route Qty: 1 2RF Rx Instructions: As directed cholecalciferol (vitamin D3) 50 mcg (2,000 unit) capsule 50 mcg PO DAILY 90 Days Qty: 90 3RF levothyroxine 200 mcg tablet 200 mcg PO DAILY 90 Days Qty: 90 1RF (DME) bath bench with back See Rx Instructions .Route .MEDSUPPLY Qty: 1 0RF Rx Instructions: As directed insulin lispro 100 unit/mL insulin pen 12 unit subcut DAILY 30 Days Qty: 6 4RF (DME) pen needle, diabetic 32 gauge x 5/32 needle See Rx Instructions .ROUTE .MEDSUPPLY Qty: 100 11RF Rx Instructions: bid (DME) Accu-Chek Guide test strips Strip See Rx Instructions .Route Qty: 200 6RF Rx Instructions: twice daily (DME) blood-glucose meter [Accu-Chek Guide Glucose Meter] Misc See Rx Instructions .Route Qty: 1 0RF Rx Instructions: As directed levocetirizine 5 mg tablet 5 mg PO DAILY PRN (Reason: allergy symptoms) 30 Days Qty: 30 3RF Print Language: Other
--- NOTE | 2024-10-04 19:47 | ECG_ITS ---
Test Reason : DIZZINES Blood Pressure : */* mmHG Vent. Rate : 48 BPM Atrial Rate : 48 BPM P-R Int : 156 ms QRS Dur : 86 ms QT Int : 454 ms P-R-T Axes : 46 34 40 degrees QTcB Int : 405 ms Sinus bradycardia Otherwise normal ECG When compared with ECG of 15-Jan-2024 15:43, No significant change was found Referred By: Michaela Squires Electronically Signed By: Lenny Carrillo
[2024-10-04 20:01] LABS: MANUAL DIFF FLAG NO
[2024-10-04 20:05] LABS: Hematocrit 37.0 % (37.0-47.0); Hemoglobin 13.1 g/dl (12.0-16.0); Imm Gran Abs Auto 0.01 X10*3/uL (0.00-0.03); Imm Gran Pct Auto 0.2 % (0.0-0.4); Lymphocytes Absolute Auto 1.8 X10*3/uL (1.2-4.9); Mean Corpuscular HGB Conc 35.4 g/dl (31.0-35.0); Mean Corpuscular Hemoglobin 30.5 pg (27.0-33.0); Mean Corpuscular Volume 86.2 fL (80.0-98.0); NRBC Abs Auto 0.000 X10*3/uL (0.0-0.012); NRBC Pct Auto 0.0 /100WBC (0.0-0.2); Platelet Count 220 X10*3/uL (160-400); Red Blood Count 4.29 X10*6/uL (4.20-5.50); White Blood Count 4.9 X10*3/uL (4.8-10.8)
[2024-10-04 20:20] LABS: Alanine Aminotransferase 14 U/L (0-31); Albumin Level 4.5 g/dL (3.5-5.0); Alkaline Phosphatase 107 U/L (39-117); Anion Gap 9 (12-20); Aspartate Amino Transferase 19 U/L (5-31); Blood Urea Nitrogen 11 mg/dL (9-16); Calcium 9.7 mg/dL (8.4-10.2); Carbon Dioxide 27 mmol/L (22-29); Chloride 106 mmol/L (96-108); Creatinine Clr Calc Pharmacy 81.3; Estimated Glomerular Filt Rate > 60; Lipase 14 U/L (8-78); Magnesium 2.3 mg/dL (1.6-2.6); Potassium 3.8 mmol/L (3.3-5.1); Sodium 138 mmol/L (135-145); Total Protein 8.7 g/dL (6.5-8.0)
[2024-10-04 20:23] LABS: Appearance Urine Clear; Glucose Urine UA Negative (Negative); PH 8.5 (5.0-9.0); Specific Gravity - Urine 1.020 (1.005-1.025)
[2024-10-04 20:29] LABS: Troponin-I High Sensitivity < 2.7 ng/L (<3.5-17.0)
[2024-10-04 22:30] VITALS: BP 132/60; PULSE 50; RESP 18; TEMP 36.8; O2SAT 98
[2024-10-04] MEDS: iohexoL 350 MG/ML 100 ML INFUS..BTL 85 ML IV (22:38)
[2024-10-04 23:54] VITALS: BP 125/60; PULSE 45; RESP 18; O2SAT 99
[2024-10-05 00:14] VITALS: BP 125/60; PULSE 45; RESP 18; TEMP 36.8; O2SAT 99
== END 2024-10-05 00:15 | disposition home or self-care (01) ==
PROVIDERS: Physician Assistant Medical; Emergency Provider Emergency Medicine Emergency Medical Services; PCP Internal Medicine
DX: R10.9 Unspecified abdominal pain (principal); I10 Essential (primary) hypertension; E78.5 Hyperlipidemia, unspecified; E11.9 Type 2 diabetes mellitus without complications; K21.9 Gastro-esophageal reflux disease without esophagitis
CPT/HCPCS: 36415; 74177; 80048; 80076; 81003; 83690; 83735; 84484; 85025; 93005; 96361; 96374; 96375; 99284; J2270; J2405; Q9967

== ENCOUNTER → 2024-10-04 19:47 | Outpatient (BNV) | payer MEDICARE, MEDICAID, SELFPAY | PROVIDERS: Emergency Provider Emergency Medicine Emergency Medical Services; PCP Internal Medicine; Visit Provider Internal Medicine Cardiovascular Disease | DX: R00.1 Bradycardia, unspecified (principal) | CPT/HCPCS: 93010 ==

== ENCOUNTER → 2024-10-04 20:37 | Outpatient (BNV) | payer MEDICARE, MEDICAID, SELFPAY | PROVIDERS: Emergency Provider Emergency Medicine Emergency Medical Services; PCP Internal Medicine; Visit Provider General Practice | DX: R10.9 Unspecified abdominal pain (principal) | CPT/HCPCS: 74177 ==

== ENCOUNTER 2024-10-14 18:18 | Emergency (ER) | payer MEDICARE, MEDICAID, SELFPAY ==
--- NOTE | ~2024-10-14 | CT_ITS ---
CLINICAL HISTORY: pain, diverticulitis CT abdomen and pelvis with contrast Comparison: CT - CT ABDOMEN PELVIS W IV CON - 10/14/24 20:56 EDT Findings: The lung bases are clear. The patient is status post cholecystectomy. There is dilatation of the common hepatic and common bile duct unchanged. The common hepatic duct measures up to 1.4 cm in greatest diameter and the common bile duct measures up to 1 cm in greatest diameter. An obstructing mass or calculus is not demonstrated. Findings are chronic. The liver is otherwise unremarkable. The rest of the solid organs are normal. No bowel obstruction, pneumoperitoneum, or pneumatosis. The patient is status post hysterectomy. The bones are intact. The GI tract is unremarkable. IMPRESSION: No acute findings. This document has been electronically signed by: Arpan Luna MD on 10/14/2024 22:40:40
[2024-10-14 18:27] VITALS: BP 144/81; PULSE 60; RESP 18; TEMP 36.8; O2SAT 99; BMI 25.1
--- NOTE | 2024-10-14 18:33 | ED_ITS ---
HPI - Abdominal Pain General Chief Complaint: Abdominal Pain Stated Complaint: nausea, vomitting Time Seen by Provider: 10/14/24 20:09 Source: patient Limitations: no limitations History of Present Illness ED Provider: Ashly Shaw PA-C HPI narrative: 59-year-old female with a history of hypertension, hyperlipidemia, diabetes, morbid obesity, GERD, hypothyroidism, arthritis, fibromyalgia, chronic pain , presents with the abdominal pain. Patient states she has had ongoing abdominal discomfort. The pain is generalized at this point, unable to describe the nature of her discomfort. Associated nausea vomiting diarrhea. Denies fever. Denies sick contacts with similar symptoms. Denies recent hospitalization, travel or use of antibiotics. Patient is pending a GI workup for her chronic abdominal pain and symptoms. Related Data Home Medications ?Medication ?Instructions ?Recorded ?Confirmed ropinirole 0.25 mg tablet 0.25 mg PO BEDTIME PRN Restl ess 01/16/24 10/18/24 Leg(S) Previous Rx's ?Medication ?Instructions ?Recorded loratadine 10 mg capsule 10 mg PO DAILY 90 days #90 c aps 06/22/21 flash glucose scanning reader #1 ea 06/15/22 (FreeStyle Liza 2 Alpha) flash glucose sensor (FreeStyle #2 ea 06/15/22 Liza 2 Sensor kit) albuterol sulfate 90 mcg/actuation 2 puff inhalation Q 6H PRN 10/29/22 aerosol inhaler bronchospasm 30 days #6.7 gr ams bed rails #1 ea 02/22/23 underpads (Bed Underpads) #100 ea 03/15/23 rosuvastatin 10 mg tablet 10 mg PO DAILY 90 days #90 t abs 11/15/23 docusate sodium 100 mg capsule 100 mg PO BID #60 caps 01/17/24 (Colace) alendronate 70 mg tablet 70 mg PO QWEEK 90 days #13 t abs 01/27/24 ergocalciferol (vitamin D2) 1,250 1,250 mcg PO WE 90 d ays #13 caps 04/01/24 mcg (50,000 unit) capsule bath bench with back #1 ea 04/09/24 cholecalciferol (vitamin D3) 50 50 mcg PO DAILY 90 day s #90 caps 04/09/24 mcg (2,000 unit) capsule levothyroxine 200 mcg tablet 200 mcg PO DAILY 90 days #90 tabs 04/09/24 bismuth subsalicylate 262 mg 2 tab PO QID 14 days #112 tabs 07/02/24 chewable tablet insulin degludec 200 unit/mL (3 175 unit (0.875 mL) kulkarni bcut BID 90 07/17/24 mL) subcutaneous pen (Tresiba days #157.5 mL FlexTouch U-200 insulin) levocetirizine 5 mg tablet 5 mg PO DAILY PRN allergy s ymptoms 08/06/24 30 days #30 tabs Accu-Chek Guide Glucose Meter #1 ea 08/15/24 (blood-glucose meter) Accu-Chek Guide test strips (blood #200 ea 08/15/24 sugar diagnostic) empagliflozin 10 mg tablet 10 mg PO DAILY 30 days #30 tabs 08/15/24 (Jardiance) insulin lispro 100 unit/mL 12 unit (0.12 mL) subcut DA NIC 30 08/15/24 subcutaneous pen days #6 mL pen needle, diabetic 32 gauge x #100 ea 08/15/24 semaglutide 0.25 mg or 0.5 mg (2 0.5 mg (0.736 mL) sub cut QWEEK 4 09/02/24 mg/3 mL) subcutaneous pen injector weeks #2.944 mL (Ozempic) oxycodone 10 mg tablet 10 mg PO Q8H PRN pain 30 day s #90 09/17/24 tabs lancets (Accu-Chek Softclix #100 ea 09/21/24 Lancets) ibuprofen 600 mg tablet 600 mg PO TID PRN Pain, Mild 30 09/25/24 days #90 tabs zolpidem 10 mg tablet 10 mg PO BEDTIME insomnia 30 days 09/26/24 #30 tabs levothyroxine 50 mcg tablet 50 mcg PO DAILY 90 days #9 0 tabs 10/04/24 dicyclomine 20 mg tablet 20 mg PO QID PRN abdominal p ain 10/14/24 #16 tabs ondansetron 4 mg disintegrating 4 mg PO Q8H PRN nausea and 10/14/24 tablet vomiting #15 tabs sucralfate 100 mg/mL oral 10 ml PO QID PRN indigestion #400 07/20/25 suspension (Carafate) mL famotidine 40 mg tablet 40 mg PO BID 30 days #60 tab s 10/18/24 pantoprazole 40 mg tablet,delayed 40 mg PO DAILY 30 da ys #30 tabs 10/18/24 release sucralfate 100 mg/mL oral 10 ml PO BID 7 days #140 mL 10/18/24 suspension (Carafate) mercaptopurine 50 mg tablet 50 mg PO DAILY #90 tabs Allergies Allergy/AdvReac Type Severity Reaction Status Date / Time gadobutrol (From GADAVIST) Allergy Severe ANAPHYLAXIS Verified 10/22/24 12:54 hydroxychloroquine Allergy Intermediate rash,facial Verified 10/22/24 12:54 (Plaquenil) swelling levofloxacin (From LEVAQUIN) Allergy Intermediate ITCHY RASH Verified 10/22/24 12:54 pregabalin (From LYRICA) Allergy Intermediate STOMACH Verified 10/22/24 12:54 UPSET, Swelling tramadol Allergy Intermediate abdominal Verified 10/22/24 12:54 pain azathioprine AdvReac Intermediate Nausea and Verified 10/22/24 12:54 Vomiting insulin aspart (From Novolog AdvReac Intermediate chills, Verified 10/22/24 12:54 U-100 Insulin aspart) shaking, sweating, weakness and tachycardia [id number] Reductase AdvReac Intermediate transamimit Verified 10/22/24 12:54 Inhibitor is PMFSH Past Medical History Medical History Pulmonary emphysema Hypothyroidism Type 2 diabetes mellitus Osteoarthritis of hand, left Chronic constipation Hypoactive bowel sounds Hand numbness Autoimmune thyroiditis Abdominal pain Inflammatory arthritis Breast mass, right Lung cyst Bilateral hand numbness Neck pain Dyslipidemia Post-surgical hypothyroidism Diabetic polyneuropathy associated with type 2 diabetes mellitus custodial (current) use of insulin Chronic idiopathic constipation Low vitamin D level Weight loss GERD (gastroesophageal reflux disease) Diabetes type 2, uncontrolled Fibromyalgia Insomnia Surgical History Hx of arthroscopy of left knee History of liver biopsy Hx of removal of cyst History of hysterectomy History of thyroidectomy, total History of esophagogastroduodenoscopy (EGD) Hx of colonoscopy (1998) Family History Family History Father Status post liver transplant, biliary anastomotic size mismatch Brother Cardiac arrest Mother No problems noted. Maternal Aunt Breast cancer Brother Essential hypertension Substance abuse Pure hypercholesterolemia Other Mental health problem Social History Social History Household Members: None Housing: House Alcohol intake: never Patient Tobacco Use Status: Former Tobacco user Tobacco use type: Cigarette Cigarettes Per Day: 7 Years Smoked: 6 e-Cigarette/Vaping Use: Never Used Second Hand Smoke Exposure: No Advance Directives Date on File: 07/15/20 service: No Current occupational status: disabled Current occupation: right hand Cognitive needs: No Hearing needs: No Vision needs: No Physical Exam ED Vital Signs: Vital Signs - 24 hr 10/14/24 18:27 Temperature 98.3 F Pulse Rate 60 Respiratory Rate 18 Blood Pressure 144/81 H Pulse Oximetry 99 Oxygen Delivery Method Room Air BMI result Body Mass Index 25.1 Course Course Course Narrative: Rebeccazachary Whittaker [employer] 10/14 1833 This is a rapid medical exam. Defer additional HPI, ROS, PE to primary provider 59-year-old female with a history of hypertension, hyperlipidemia, diabetes, morbid obesity, GERD, hypothyroidism, arthritis, fibromyalgia here with complaints of abdominal pain, nausea, vomiting and diarrhea. Patient reports recent visit for same. Will obtain labs VSS Medical Decision Making Medical Decision Making MDM Narrative: 59-year-old female with a history of hypertension, hyperlipidemia, diabetes, morbid obesity, GERD, hypothyroidism, arthritis, fibromyalgia, chronic pain , presents with the abdominal pain. Patient states she has had ongoing abdominal discomfort. The pain is generalized at this point, unable to describe the nature of her discomfort. Associated nausea vomiting diarrhea. Denies fever. Denies sick contacts with similar symptoms. Denies recent hospitalization, travel or use of antibiotics. Patient is pending a GI workup for her chronic abdominal pain and symptoms. Problem: Chronic pain, chronic GI symptoms, diabetes History: Per patient I have considered the following differential diagnoses:I have considered the following differential diagnoses: Appendicitis, sigmoid diverticulitis, viral gastroenteritis, C diff, traveler's diarrhea Plan: The patient is here in the emergency department with a unchanged symptoms, she is currently pending GI assessment. I had seen her when she presented the beginning of September, I had Center with dicyclomine and antiemetic, she states she receives some relief of her symptoms with these medications. Today, she insists she is having acute pain. I feel obligated to repeat the CT scan. Screening labs already obtained from triage. Giving fluid morphine and Zofran . To note she has no risk factors for C diff or traveler's diarrhea. She also has no sick contacts with same symptoms, viral gastro less likely. I have independently reviewed the following tests: Labs: No leukocytosis, not anemic, no electrolyte abnormality noted CT abdomen and pelvis:The patient is status post cholecystectomy. There is dilatation of the common hepatic and common bile duct unchanged. The common hepatic duct measures up to 1.4 cm in greatest diameter and the common bile duct measures up to 1 cm in greatest diameter. An obstructing mass or calculus is not demonstrated. Findings are chronic. The liver is otherwise unremarkable. The rest of the solid organs are normal. No bowel obstruction, pneumoperitoneum, or pneumatosis. The patient is status post hysterectomy. The bones are intact. The GI tract is unremarkable. IMPRESSION: No acute findings. Lab Data 10/14/24 19:20 10/14/24 19:20 Labs: Lab Results 10/14/24 Range/Units 19:20 WBC 5.4 (4.8-10.8) X10*3/uL RBC 4.46 (4.20-5.50) X10*6/uL Hgb 13.5 (12.0-16.0) g/dl Hct 38.9 (37.0-47.0) % MCV 87.2 (80.0-98.0) fL MCH 30.3 (27.0-33.0) pg MCHC 34.7 (31.0-35.0) g/dl RDW 13.2 (11.0-16.0) % Plt Count 251 (160-400) X10*3/uL MPV 9.1 L (9.4-12.3) fL Immature Gran % (Auto) 0.9 H (0.0-0.4) % Neut % (Auto) 59.2 (45-73) % Lymph % (Auto) 32.3 (20-40) % Stearns % (Auto) 7.2 (2-11) % Eos % (Auto) 0.2 (0-4) % Baso % (Auto) 0.2 (0-2) % Lymph # (Auto) 1.8 (1.2-4.9) X10*3/uL Stearns # (Auto) 0.4 (0.1-1.2) X10*3/uL Eos # (Auto) 0.0 (0.0-0.4) X10*3/uL Baso # (Auto) 0.0 (0.0-0.2) X10*3/uL Abs Immat Gran (auto) 0.05 H (0.00-0.03) X10*3/uL Absolute Neuts (auto) 3.2 (2.0-8.3) x10*3/uL Absolute Nucleated RBC 0.000 (0.0-0.012) X10*3/uL Nucleated RBC % (auto) 0.0 (0.0-0.2) /100WBC Sodium 141 (135-145) mmol/L Potassium 4.0 (3.3-5.1) mmol/L Chloride 106 (96-108) mmol/L Carbon Dioxide 23 (22-29) mmol/L Anion Gap 16 (12-20) BUN 22 H (9-16) mg/dL Creatinine 0.84 (0.5-1.4) mg/dL Estim Creat Clear Calc 70.1 Estimated GFR > 60 Random Glucose 127 H (60-115) mg/dL Calcium 10.3 H D (8.4-10.2) mg/dL Total Bilirubin 1.4 H (0.0-1.0) mg/dL Direct Bilirubin 0.4 (0.0-0.5) mg/dL AST 27 (5-31) U/L ALT 17 (0-31) U/L Alkaline Phosphatase 104 (39-117) U/L Total Protein 9.1 H (6.5-8.0) g/dL Albumin 4.8 (3.5-5.0) g/dL Medications Administered Discontinued Medications Generic Name Dose Route Start Last Admin Trade Name Freq PRN Reason Stop Dose Admin Famotidine 20 mg 10/14/24 20:51 10/14/24 21:22 Famotidine/Pf 20 Mg/2 Ml Vial IVPUSH 10/14/24 20:52 20 mg ONCE ONE Administration Morphine Sulfate 4 mg 10/14/24 20:51 10/14/24 21:22 Morphine Sulfate 4 Mg/Ml Cartridge IVPUSH 10/14/24 20:52 4 mg ONCE ONE Administration Protocol Ondansetron HCl 4 mg 10/14/24 20:51 10/14/24 21:22 Ondansetron Hcl 4 Mg/2 Ml Vial IVPUSH 10/14/24 20:52 4 mg ONCE ONE Administration Sucralfate 1 gm 10/14/24 23:33 10/15/24 00:04 Sucralfate Oral Suspension 1 Gm/10 Ml Oral.Susp PO 10/14/24 23:34 1 gm ONCE ONE Administration Discharge Plan Discharge Clinical Impression: Nausea vomiting and diarrhea Abdominal pain Qualifiers: Abdominal location: left upper quadrant Qualified Code(s): R10.12 - Left upper quadrant pain Patient Disposition: Home, Self-Care Instructions: Gastritis (ED), H Pylori (Helicobacter Pylori) Infection (ED), Chronic Diarrhea (ED), Abdominal Pain (ED), Nutrition Tips for Relief of Diarrhea (ED), GI (Gastrointestinal) Soft Diet (ED) Additional Instructions: All of your screening labs were normal for you. The CT scan of the abdomen and pelvis was normal as well. See home care instructions. Uses Zofran as needed for nausea, use the Carafate as needed for abdominal discomfort, use the dicyclomine as needed for abdominal discomfort and diarrhea. Keep your appointment for pending Gastroenterology consult. Prescriptions: New sucralfate [Carafate] 100 mg/mL suspension 10 ml PO QID PRN (Reason: indigestion) Qty: 400 0RF Rx Instructions: swish in mouth and swallow; use after food/drink dicyclomine 20 mg tablet 20 mg PO QID PRN (Reason: abdominal pain) Qty: 16 0RF ondansetron 4 mg tablet,disintegrating 4 mg PO Q8H PRN (Reason: nausea and vomiting) Qty: 15 0RF No Action loratadine 10 mg capsule 10 mg PO DAILY 90 Days Qty: 90 3RF albuterol sulfate 90 mcg/actuation HFA aerosol inhaler 2 puff inhalation Q6H PRN (Reason: bronchospasm) 30 Days Qty: 6.7 2RF (DME) underpads [Bed Underpads] Pad See Rx Instructions .Route Qty: 100 11RF Rx Instructions: As directed rosuvastatin 10 mg tablet 10 mg PO DAILY 90 Days Qty: 90 2RF alendronate 70 mg tablet 70 mg PO QWEEK 90 Days Qty: 13 1RF ergocalciferol (vitamin D2) 1,250 mcg (50,000 unit) capsule 1,250 mcg PO WE 90 Days Qty: 13 1RF bismuth subsalicylate 262 mg tablet,chewable 2 tab PO QID 14 Days Qty: 112 0RF insulin degludec [Tresiba FlexTouch U-200] 200 unit/mL (3 mL) insulin pen 175 unit subcut BID 90 Days Qty: 157.5 1RF Rx Instructions: patient states she takes 175 units BID but will split dose in half based off of blood sugar Jardiance 10 mg tablet 10 mg PO DAILY 30 Days Qty: 30 4RF Ozempic 0.25 mg or 0.5 mg (2 mg/3 mL) pen injector 0.5 mg subcut QWEEK 28 Days Qty: 2.944 0RF oxycodone 10 mg tablet 10 mg PO Q8H PRN (Reason: pain) 30 Days Qty: 90 0RF Rx Instructions: Partial Fill upon patient request. patient states she usually only takes 5mg (DME) lancets [Accu-Chek Softclix Lancets] Misc See Rx Instructions .Route Qty: 100 6RF Rx Instructions: As directed bid for use with accucheck guide meter drums were initially dispensed and do not go with her lancing device ibuprofen 600 mg tablet 600 mg PO TID PRN (Reason: Pain, Mild) 30 Days Qty: 90 0RF zolpidem 10 mg tablet 10 mg PO BEDTIME 30 Days Qty: 30 0RF levothyroxine 50 mcg tablet 50 mcg PO DAILY 90 Days Qty: 90 0RF ropinirole 0.25 mg tablet 0.25 mg PO BEDTIME PRN (Reason: Restless Leg(S)) Rx Instructions: administer 1-3 hours before bedtime docusate sodium [Colace] 100 mg capsule 100 mg PO BID Qty: 60 2RF (DME) bed rails See Rx Instructions .Route .MEDSUPPLY Qty: 1 0RF Rx Instructions: As directed (DME) FreeStyle Liza 2 Sensor Kit See Rx Instructions .Route Qty: 2 5RF Rx Instructions: As directed -change every 14 days (DME) FreeStyle Liza 2 Alpha Misc See Rx Instructions .Route Qty: 1 2RF Rx Instructions: As directed cholecalciferol (vitamin D3) 50 mcg (2,000 unit) capsule 50 mcg PO DAILY 90 Days Qty: 90 3RF levothyroxine 200 mcg tablet 200 mcg PO DAILY 90 Days Qty: 90 1RF (DME) bath bench with back See Rx Instructions .Route .MEDSUPPLY Qty: 1 0RF Rx Instructions: As directed insulin lispro 100 unit/mL insulin pen 12 unit subcut DAILY 30 Days Qty: 6 4RF (DME) pen needle, diabetic 32 gauge x 5/32 needle See Rx Instructions .ROUTE .MEDSUPPLY Qty: 100 11RF Rx Instructions: bid (DME) Accu-Chek Guide test strips Strip See Rx Instructions .Route Qty: 200 6RF Rx Instructions: twice daily (DME) blood-glucose meter [Accu-Chek Guide Glucose Meter] Misc See Rx Instructions .Route Qty: 1 0RF Rx Instructions: As directed levocetirizine 5 mg tablet 5 mg PO DAILY PRN (Reason: allergy symptoms) 30 Days Qty: 30 3RF mercaptopurine 50 mg tablet 50 mg PO DAILY Qty: 90 2RF sucralfate [Carafate] 100 mg/mL suspension 10 ml PO BID 7 Days Qty: 140 0RF pantoprazole 40 mg tablet,delayed release (DR/EC) 40 mg PO DAILY 30 Days Qty: 30 1RF famotidine 40 mg tablet 40 mg PO BID 30 Days Qty: 60 1RF Interventions: ED Discharge Assessment Last Done: 10/15/24 00:11 Discharge Date/Time: 10/15/24 00:11 Print Language: Other
--- OUTSIDE RECORDS SUMMARY | 2024-10-14 19:03 | XMS_ITS | Encounter Summary ---
Author Organization [facility] Address [address] [place] [address] Care Team Providers Care Cardiovascular Invasive Specialist Name Role Phone Becca Sprague Primary Care Provider [phone] Encounter Details Date Type Department Care Team (Late st Contact Info) Description 10/12/2024 Orders Only [facility] Interventional Radiology [address] [place] [id number] Loida Marshall PA [address] [place] [address] Autoimmune hepatitis (HCC) (Primary Dx) Social History Tobacco Use Types Packs/Day Years [...] Orientation Straight 10/26/2023 3: 34 PM EDT documented as of this encounter Miscellaneous Notes * Pre-Procedure Note - LUIS A Velazco - 10/12/2024 3:34 PM EDT Interventional Radiology Protocol Note Request: Non-focal liver biopsy History of Present Illness: Cece Conley is a 59 y.o. 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 She is currently on 6-Mercaptopurine for monotherapy. She has been referred to IR for non-focal liver biopsy to help determine if she can stop immunosuppression. Past Medical / Past Surgical: Past Medical History: Diagnosis Date Arthritis Asthma Fibromyalgia, primary GERD (gastroesophageal reflux disease) Hyperlipidemia Peripheral neuropathy Rheumatoid arthritis Type 2 diabetes mellitus Past Surgical History: Procedure Laterality Date DE ESOPHAGOGASTRODUODENOSCOPY TRANSORAL DIAGNOSTIC N/A 06/03/2020 Procedure: UPPER ENDOSCOPY; DIAGNOSTIC WITH BRUSH/WASH (SP) WITH POSSIBLE MODERATE SEDATION; Surgeon: Al Chappell MD; Location: [facility]; Service: Gastroenterology Problem List: Patient Active Problem List There is no problem list on file for this patient. Current Medications: Current Outpatient Medications: albuterol (PROAIR HFA,VENTOLIN HFA) 90 mcg inhaler, Inhale 1-2 puffs by mouth every 6 hours as needed for wheezing or shortness of breath. Use with spacer., Disp: , Rfl: alendronate (FOSAMAX) 70 mg tablet, SMARTSI Tablet(s) By Mouth Once a Week, Disp: , Rfl: BD Alivia 2nd Gen Pen Needle 4 mm x 32 g, DIRECTED 4 TIMES A DAY, Disp: , Rfl: cholecalciferol (VITAMIN D3) 2,000 unit capsule, SMARTSI Capsule(s) By Mouth Daily, Disp: , Rfl: ergocalciferol (VITAMIN D2) 1,250 mcg (50,000 unit) capsule, Take 50,000 Units by mouth once a week., Disp: , Rfl: fluconazole (DIFLUCAN) 150 mg tablet, SMARTSI Tablet(s) By Mouth Every 3 Days, Disp: , Rfl: folic acid (FOLVITE) 1 mg tablet, SMARTSI Tablet(s) By Mouth Daily, Disp: , Rfl: Freestyle lancets 28 gauge, USE 1 LANCET THREE TIMES A DAY, Disp: , Rfl: Freestyle Lite test strips, DIRECTED 3 TIMES A DAY, Disp: , Rfl: ibuprofen (MOTRIN) 600 mg tablet, SMARTSI Tablet(s) By Mouth 3 Times Daily, Disp: , Rfl: ibuprofen (MOTRIN) 800 mg tablet, Take 800 mg by mouth every 6 hours as needed for pain., Disp: , Rfl: insulin glargine (Lantus U-100 Insulin) 100 units/mL solution injection, Inject under the skin nightly. (Patient not taking: Reported on 09/15/2023), Disp: , Rfl: Jardiance 10 mg, SMARTSI Tablet(s) By Mouth Daily, Disp: , Rfl: levothyroxine (SYNTHROID, LEVOTHROID) 200 mcg tablet, SMARTSI Tablet(s) By Mouth Daily, Disp: , Rfl: levothyroxine (SYNTHROID, LEVOTHROID) 50 mcg tablet, SMARTSI Tablet(s) By Mouth Daily, Disp: , Rfl: lubiprostone (AMITIZA) capsule 8 mcg, Take 24 mcg by mouth daily with breakfast., Disp: , Rfl: mercaptopurine (PURINETHOL) 50 mg tablet, SMARTSI Tablet(s) By Mouth Daily, Disp: , Rfl: metroNIDAZOLE (FLAGYL) 250 mg tablet, SMARTSI Tablet(s) By Mouth 4 Times Daily, Disp: , Rfl: nortriptyline (PAMELOR) 10 mg capsule, TAKE 1 CAPSULE BY MOUTH EVERY DAY IN THE EVENING, Disp: 30 capsule, Rfl: 2 omeprazole (PriLOSEC) 20 mg capsule, SMARTSI Capsule(s) By Mouth Daily, Disp: , Rfl: ondansetron (ZOFRAN ODT) 4 mg disintegrating tablet, SMARTSI Tablet(s) By Mouth Every 8 Hours PRN, Disp: , Rfl: ondansetron (ZOFRAN) 8 mg tablet, SMARTSI Tablet(s) By Mouth Daily PRN, Disp: , Rfl: oxyCODONE IR (ROXICODONE) 10 mg tablet, SMARTSI Tablet(s) By Mouth Every 8 Hours PRN, Disp: , Rfl: Ozempic 0.25 mg or 0.5 mg (2 mg/3 mL), SMARTSI.73 Milliliter(s) SUB-Q Once a Week, Disp: , Rfl: pantoprazole DR (PROTONIX) 20 mg tablet, Take 1 tablet (20 mg total) by mouth 2 times a day. (Patient not taking: Reported on 10/09/2024), Disp: 60 tablet, Rfl: 1 rOPINIRole (REQUIP) 0.25 mg tablet, SMARTSI Tablet(s) By Mouth Every Night, Disp: , Rfl: rosuvastatin (CRESTOR) 10 mg tablet, SMARTSI Tablet(s) By Mouth Daily, Disp: , Rfl: tetracycline 500 mg capsule, SMARTSI Capsule(s) By Mouth 4 Times Daily, Disp: , Rfl: Tresiba FlexTouch U-200 200 unit/mL (3 mL) insulin pen, SMARTSI Unit(s) SUB-Q, Disp: , Rfl: vitamin D3 (Vitamin D3) 25 mcg (1,000 unit) capsule, Take 1 capsule by mouth daily., Disp: , Rfl: zolpidem (AMBIEN) 10 mg tablet, Take 10 mg by mouth nightly as needed for sleep., Disp: , Rfl: Allergies: Allergies Allergen Reactions Gadolinium-Containing Contrast Media Anaphylaxis Lyrica [Pregabalin] Swelling Levoquin [Levofloxacin] Rash Plaquenil [Hydroxychloroquine] Rash Labs: Lab Results Component Value Date WBC 3.4 (L) 10/09/2024 HGB 11.6 (L) 10/09/2024 HCT 34.4 (L) 10/09/2024 MCV 88.0 10/09/2024 PLT 201 10/09/2024 Lab Results Component Value Date GLUCOSE 157 (H) 10/09/2024 CALCIUM 9.3 10/09/2024 NA 138 10/09/2024 K 4.0 10/09/2024 CO2 27 10/09/2024 CL 103 10/09/2024 BUN 19 10/09/2024 CREATININE 0.74 10/09/2024 EGFR >90 10/09/2024 Lab Results Component Value Date INR 0.9 09/15/2023 PT 10.3 09/15/2023 Assessment and Plan: Cece Conley is a 59 y.o. female with a history as described above. Plan to proceed with non-focalUS guided liver bx. ASA Classification: II (mild stable disturbance, e.g. HTN, stable CAD) Pre-Procedure Instructions Diet Instructions: NPO after midnight Medication Instructions: Hold Ibuprofen x 5 days. Half dose Lantus the night prior. No Jardiance the day of procedure. May take remainder of meds with a small sip of water the AM of procedure. Sedation: Moderate Sedation Pre-Procedure Labs Required?: Will request updated INR Loida Marshall PA-C Department of Interventional Radiology Pager [phone] documented in this encounter Plan of Treatment Upcoming Encounters Date Type Department Care Team (Late st Contact Info) Description 01/15/2025 3:00 PM EDT Follow-Up [facility]plant [facility] [address], [place] [id number] Amber Islas MD [address] [place], [place] [id number] Scheduled Orders Name Type Priority Associated Diagnoses Orde r Schedule Protime-INR Lab STAT Autoimmune hepatitis (HCC) Expected: 10/12/2024, Expires: 10/12/2025 documented as of this encounter Visit Diagnoses Diagnosis Autoimmune hepatitis (HCC)- Primary Autoimmune hepatitis documented in this encounter Care Teams Cardiovascular Invasive Specialist Relationship Specialty Start Date End Date Becca Sprague [address] [place] [address] [place] [address] PCP - General Internal Medicine 08/16/19 documented as of this encounter
--- OUTSIDE RECORDS SUMMARY | 2024-10-14 19:03 | XMS_ITS | Patient Health Record ---
Author Organization [facility] Address [address] [place] [address] Care Team Providers Care Adjunct Faculty Instructor Name Role Phone Becca Sprague Primary Care Provider UnavailEsdras Cristobal Unavailable [phone] Allergies Allergen (clinical drug ingredient) Drug/Non Drug Allergy documented on EMR Reaction Allergy Type Onset Date Status IV Contrast dye (uncoded) Unknown Allergy Active Reason For Referral No Information Medications Medication SIG (Take, Route, Frequency, Duration) Notes Start Date End Date Status Vitamin D 1000 UNIT 1 tablet Orally Once a day Active Januvia 100 MG 1 tablet Orally Once a day Active Levothyroxine Sodium 175 MCG 1 tablet Orally Once a day Active Gabapentin 300 MG 2 capsule Orally QHS Active metFORMIN HCl 500 MG 1 tablet with meals Orally Twice a day Active Lantus SoloStar 100 UNIT/ML Subcutaneous Active Omeprazole 20 MG 1 capsule Orally Onc e a day for 30 days 01/12/2012 Active Desonide 0.05 % 1 application to aff ected area Externally Twice a day Active Dicyclomine HCl 10 MG 1-2 capsules Orall y Four times a day as needed for abdominal pain/bloating/discomfort for 30 days 01/12/2012 Active Atorvastatin Calcium 40 MG 1 tablet Oral ly Once a day Active Immunizations Vaccine Route Administration Date Status Comme nts Flu vaccine no Preserv 3 and > Unknown 01/08/2014 Admin istered Problems Problem Type SNOMED Code ICD Code Onset Dates Problem Status W/U Status Risk Notes Problem Irritable bowel syndrome (73822974) Irritable bowel syndrome (564.1) Active confirmed Problem Dysphagia (62516618) Dysphagia (787.20) Active confirmed Problem Gastroesophageal reflux disease (923061652) GERD (gastroesophag eal reflux disease) (530.81) Active confirmed Problem Esophageal spasm (44675382) Esophageal spasm (530.5) Active confirmed Problem Irritable bowel syndrome (33910672) IBS (irritable bowel syndrome) (564.1) Active confirmed Plan Of Treatment No Information Insurance Providers Payer Name Payer Address Payer Phone Subscriber Number Group Number Insured Name Patient Relationship to Insured Coverage Start Date Coverage End Date MEDICARE OF [place] [address] [place] [address] [phone] [id number] DIEGO FORD Self - patient is the insured MEDICAID OF [facility] [address] [place] [phone] [id number] DIEGO FORD Self - patient is the insured Medical (General) History Medical History History ICD Code GERD, with her last endoscop y by me in October of 2009 which did not reveal any evidence of significant esophagitis nor peptic ulcer disease--biopsies were negative for celiac disease, but were positive for H. pylori-at that time I did not feel this needed to be treated based on her symptomatology-she was kept on omeprazole. She also had an upper endoscopy in [address] Carrero revealing a small hiatal hernia and duodenitis, according to the pathology report irritable bowel syndrome, th at has been treated with dicyclomine-she had a colonoscopy in 2007 that was negative, including biopsies that were negative for any underlying colitis anxiety depression migranes hypothyroidism Denies [place],CVA,Lung disease,renal disease diverticulosis and internal hemorrhoids seen on the 2007 colonoscopy negative small bowel series in 2004 negative abdominal and pelvi c CAT scan in June of 2011, except for a small umbilical hernia diabetes mellitus Liver cysts seen on CT and MRI in 2014 Surgical History Surgery Date(Month/Year) hysterectomy with left oophorectomy laparoscopies cholecystectomy thyroid surgery
--- OUTSIDE RECORDS SUMMARY | 2024-10-14 19:03 | XMS_ITS | Clinical Summary ---
Author Organization [employer] Address [address] [facility] [address] [place] [address] Care Team Providers Care Photographer Scientific Name Role Phone Unavailable Primary Care Provider [...] Date Periodontal disease 01/05/2023 Dental caries 01/05/2023 Social History Tobacco Use Types Packs/Day Years [...] Description 11/28/2024 2:00 PM EDT Office Visit [facility] [address] [place] [address] Ezra Cortezsa Health Maintenance Due Date Last Done Comments [...] Vaccine (3 - season) 2023 09/13/2020, 08/23/2020 Dental Oral Exam 07/30/2024 01/30/2024, 01/05/2023 Dental Prophylaxis 07/30/2024 01/30/2024 Dental X-Ray: Bitewings 11/03/2024 11/03/2023, 01/05 Influenza Vaccine (#1) 2024 , 01/15/2021, 02/12/2020, Additional history exists Tobacco Screening [...] Procedure Name Priority Date/Time Associated Diagnosis Comments PROPHYLAXIS - ADULT Routine 01/30/2024 3 :00 [...] Most Recently Relevant to Health Maintenance Insurance [facility]AL[facility] MEDICAID STAND ADULT
[2024-10-14 19:30] LABS: MANUAL DIFF FLAG NO
[2024-10-14 19:49] LABS: Alanine Aminotransferase 17 U/L (0-31); Albumin Level 4.8 g/dL (3.5-5.0); Alkaline Phosphatase 104 U/L (39-117); Anion Gap 16 (12-20); Aspartate Amino Transferase 27 U/L (5-31); Blood Urea Nitrogen 22 mg/dL (9-16); Calcium 10.3 mg/dL (8.4-10.2); Carbon Dioxide 23 mmol/L (22-29); Chloride 106 mmol/L (96-108); Creatinine Clr Calc Pharmacy 70.1; Estimated Glomerular Filt Rate > 60; Potassium 4.0 mmol/L (3.3-5.1); Sodium 141 mmol/L (135-145); Total Protein 9.1 g/dL (6.5-8.0)
[2024-10-14 19:57] LABS: Hematocrit 38.9 % (37.0-47.0); Hemoglobin 13.5 g/dl (12.0-16.0); Imm Gran Abs Auto 0.05 X10*3/uL (0.00-0.03); Imm Gran Pct Auto 0.9 % (0.0-0.4); Lymphocytes Absolute Auto 1.8 X10*3/uL (1.2-4.9); Mean Corpuscular HGB Conc 34.7 g/dl (31.0-35.0); Mean Corpuscular Hemoglobin 30.3 pg (27.0-33.0); Mean Corpuscular Volume 87.2 fL (80.0-98.0); NRBC Abs Auto 0.000 X10*3/uL (0.0-0.012); NRBC Pct Auto 0.0 /100WBC (0.0-0.2); Platelet Count 251 X10*3/uL (160-400); Red Blood Count 4.46 X10*6/uL (4.20-5.50); White Blood Count 5.4 X10*3/uL (4.8-10.8)
--- NOTE | 2024-10-14 21:12 | PC.NURSE ---
Pt returned from CT iv infiltrated w/ contrast dye, provider made aware by bakery technician, iv removed.
[2024-10-15] MEDS: Sucralfate Oral Suspension 1 GM/10 ML ORAL.SUSP PO (00:04)
[2024-10-15 00:11] VITALS: BP 144/81; PULSE 60; RESP 18; TEMP 36.8; O2SAT 99
== END 2024-10-15 00:11 | disposition home or self-care (01) ==
PROVIDERS: Nurse Practitioner Family; Emergency Provider Emergency Medicine; PCP Internal Medicine
DX: R10.2 Pelvic and perineal pain (principal); R11.2 Nausea with vomiting, unspecified; R19.7 Diarrhea, unspecified; R10.12 Left upper quadrant pain; E11.9 Type 2 diabetes mellitus without complications; Z79.4 Long term (current) use of insulin; Z79.899 Other long term (current) drug therapy; Z87.891 Personal history of nicotine dependence
CPT/HCPCS: 36415; 74177; 80048; 80076; 85025; 96374; 96375; 99284; J1308; J2270; J2405

== ENCOUNTER → 2024-10-14 20:51 | Outpatient (BNV) | payer MEDICARE, MEDICAID, SELFPAY | PROVIDERS: PCP Internal Medicine; Visit Provider Radiology Diagnostic Radiology | DX: R10.12 Left upper quadrant pain (principal) | CPT/HCPCS: 74177 ==

== ENCOUNTER 2024-10-16 07:45 | Outpatient (REF) | payer MEDICARE, MEDICAID, SELFPAY ==
--- NOTE | ~2024-10-16 | FL_ITS ---
EXAMINATION: XR FLUOROSCOPY UPPER GI WITH AIR CLINICAL INFORMATION: Left upper quadrant pain COMPARISON: None available. TECHNIQUE: Routine upper GI air contrast study was performed in upright and lying position. FINDINGS: Following oral administration of thick barium and effervescent granules is normal propagation bolus from the oral cavity through the pharynx, esophagus into stomach. No laryngeal penetration or aspiration seen. On placing patient supine and prone lying there is moderate gastric secretions. No mucosal erosions or ulcerations seen. The course, caliber and peristalsis of the stomach, duodenal bulb and sweep is normal. There is no gastroesophageal reflux or hiatal hernia. Incidental finding of cholecystectomy. On retrospective evaluation of CT abdomen 10/14/2024 there is nonspecific circumferential thickening seen in redundant proximal transverse colon on axial image 52/3. This could be from underlying lesion or peristalsis. FLUOROSCOPY TIME: 2 minute 38 seconds DOSE AREA PRODUCT: 2302 uGy-m2 (microgray-meter squared) FL/FL upper GI w air IMPRESSION: Moderate gastric secretions likely hyper acidity. Otherwise unremarkable upper GI air contrast study. Retrospective imaging of CT abdomen and pelvis 10/14/2024 there is suspicion for mural thickening involving proximal transverse colon which could be secondary to peristalsis, underlying lesion or spasm. Recommend endoscopy or barium enema exam Electronically signed by: Seng Jackson MD 10/16/2024 11:41 AM EDT
== END 2024-10-16 07:46 | disposition home or self-care (01) ==
LOC: HO.XRAY 07:45
PROVIDERS: PCP Internal Medicine; Visit Provider Internal Medicine
DX: R10.12 Left upper quadrant pain (principal)
CPT/HCPCS: 74246

== ENCOUNTER → 2024-10-16 07:47 | Outpatient (BNV) | payer MEDICARE, MEDICAID, SELFPAY | PROVIDERS: PCP Internal Medicine; Visit Provider Radiology Diagnostic Radiology | DX: R10.12 Left upper quadrant pain (principal) | CPT/HCPCS: 74246 ==

== ENCOUNTER 2024-10-18 11:19 | Outpatient (AMB) | payer MEDICARE, MEDICAID, SELFPAY ==
[2024-10-18 11:24] VITALS: BP 136/84; BMI 25.2
--- NOTE | 2024-10-18 11:24 | A.OFFPC_ITS ---
Vital Signs 10/18/24 11:24 Height 5 ft 7 in Weight 161 lb BMI 25.2 BP 136/84 Blood Pressure Location Rt brachial Position Sitting Intake Visit Reasons: ABD pain Intake Note: Patient here for a follow up multiple ED visits abdominal pain, c/o weakness, arm pain, abdominal pain. Physician'S Assistant Required: No Accompanied by: Self / Same As Patient Allergies gadobutrol (From GADAVIST) Allergy (Severe, Verified 10/18/24 11:39) ANAPHYLAXIS hydroxychloroquine (Plaquenil) Allergy (Intermediate, Verified 10/18/24 11:39) rash,facial swelling levofloxacin (From LEVAQUIN) Allergy (Intermediate, Verified 10/18/24 11:39) ITCHY RASH pregabalin (From LYRICA) Allergy (Intermediate, Verified 10/18/24 11:39) STOMACH UPSET, Swelling tramadol Allergy (Intermediate, Verified 10/18/24 11:39) abdominal pain azathioprine Adverse Reaction (Intermediate, Verified 10/18/24 11:39) Nausea and Vomiting insulin aspart (From Novolog U-100 Insulin aspart) Adverse Reaction (Intermediate, Verified 10/18/24 11:39) chills, shaking, sweating, weakness and tachycardia Issneec-XRO-BaC Reductase Inhibitor Adverse Reaction (Intermediate, Verified 10/18/24 11:39) transamimitis Medication List - Last Reconciled 10/18/24 by Becca Newberry MD Accu-Chek Guide Glucose Meter (blood-glucose meter) As directed NS Accu-Chek Guide test strips (blood sugar diagnostic) twice daily NS albuterol sulfate 90 mcg/actuation 2 puffs inhalation Q6H PRN 30 days alendronate 70 mg PO QWEEK 90 days [bath bench with back As directed] [bed rails As directed] bismuth subsalicylate 2 tabs PO QID 14 days cholecalciferol (vitamin D3) 50 mcg PO DAILY 90 days dicyclomine 20 mg PO QID PRN docusate sodium (Colace) 100 mg PO BID empagliflozin (Jardiance) 10 mg PO DAILY 30 days ergocalciferol (vitamin D2) 1,250 mcg PO WE 90 days famotidine 20 mg PO BEDTIME flash glucose scanning reader (Burstly Liza 2 [place]) As directed flash glucose sensor (FreeStyle Liza 2 Sensor kit) As directed -change every 14 days ibuprofen 600 mg PO TID PRN 30 days insulin degludec (Tresiba FlexTouch U-200 insulin) 175 units (0.875 mL) subcut BID 90 days insulin lispro 12 units (0.12 mL) subcut DAILY 30 days NS lancets (Accu-Chek Softclix Lancets) As directed bid for use with accucheck guide meter drums were initially dispensed and do not go with her lancing device levocetirizine 5 mg PO DAILY PRN 30 days levothyroxine 200 mcg PO DAILY 90 days levothyroxine 50 mcg PO DAILY 90 days loratadine 10 mg PO DAILY 90 days mercaptopurine 50 mg PO DAILY omeprazole 20 mg PO BID 14 days ondansetron 4 mg PO Q8H PRN oxycodone 10 mg PO Q8H PRN 30 days pen needle, diabetic bid ropinirole 0.25 mg PO BEDTIME PRN rosuvastatin 10 mg PO DAILY 90 days semaglutide (Ozempic) 0.5 mg (0.736 mL) subcut QWEEK 4 weeks sucralfate (Carafate) 10 mL PO QID PRN tetracycline 500 mg PO QID 14 days underpads (Bed Underpads) As directed zolpidem 10 mg PO BEDTIME 30 days Tobacco use date assessed: 04/09/24 Dental Screening Dental Screen Date: 04/09/24 HPI HPI Comments History of Present Illness Details The patient is a 59-year-old female presenting with abdominal pain. She went to ER on October 14 due to abdominal pain, and a CT scan of the abdomen showed dilatation of the common hepatic and common bile duct. An upper GI series conducted on October 16 revealed hyperacidity. She also complains of dyspnea on exertion and would like to see pulmonology again. The patient reports no relief from omeprazole and dicyclomine but experiences some relief with Carafate. She is scheduled for an endoscopy next month and will see gastroenterology next week. The patient has a history of diabetes mellitus, managed with long-term insulin therapy and monitored by endocrinology. Her last recorded HbA1c was 10.7% on August 06. She also has hypothyroidism, treated with levothyroxine, and dyslipidemia, managed with rosuvastatin. [facility] Medical History (Updated 10/18/24 @ 12:01 by Becca Newberry MD) Pulmonary emphysema Hypothyroidism Type 2 diabetes mellitus Osteoarthritis of hand, left Chronic constipation Hypoactive bowel sounds Hand numbness Autoimmune thyroiditis Abdominal pain Inflammatory arthritis Breast mass, right Lung cyst Bilateral hand numbness Neck pain Dyslipidemia Post-surgical hypothyroidism Diabetic polyneuropathy associated with type 2 diabetes mellitus rodent exterminator (current) use of insulin Chronic idiopathic constipation Low vitamin D level Weight loss GERD (gastroesophageal reflux disease) Diabetes type 2, uncontrolled Fibromyalgia Insomnia Surgical History Hx of arthroscopy of left knee History of liver biopsy Hx of removal of cyst History of hysterectomy History of thyroidectomy, total History of esophagogastroduodenoscopy (EGD) Hx of colonoscopy (1998) Family History Father Status post liver transplant, biliary anastomotic size mismatch Brother Cardiac arrest Mother No problems noted. Maternal Aunt Breast cancer Brother Essential hypertension Substance abuse Pure hypercholesterolemia Other Mental health problem Social History Household Members: None Housing: House Alcohol intake: never Patient Tobacco Use Status: Former Tobacco user Tobacco use type: Cigarette Cigarettes Per Day: 7 Years Smoked: 6 e-Cigarette/Vaping Use: Never Used Second Hand Smoke Exposure: No Advance Directives Date on File: 07/15/20 service: No Current occupational status: disabled Current occupation: right hand Cognitive needs: No Hearing needs: No Vision needs: No Female Reproductive History Menstrual Age of Menarche: 12 Questionnaire Thrive Questionnaire Date Thrive assessed: 08/06/24 I am a: Patient What is your living situation today?: I have a steady place to live Within the past 12 months, did the food you bought not last and you didn't have the money to get more?: Sometimes True Within the past 12 months, did you worry whether your food would run out before you got money to buy more?: Often true Do you have trouble paying for medicines?: No Do you have trouble getting transportation to medical appointments?: Yes Do you have trouble paying your heating and electricity bill?: Yes Do you have trouble taking care of your child, family member or friend?: No Do you have trouble with day-to-day activities such as bathing, preparing meals, shopping, managing finances, etc.?: No Are you currently unemployed and looking for a job?: No Are you interested in more education?: No Please select the resources that you would like help with: None Currently or been in a relationship where the following occur: No concerns reported THRIVE Score: 4 HATTIE-7 AMB Questionnaire HATTIE-7 Date HATTIE - 7 assessed: 08/06/24 Source: Developed by Drs. Esdras Tang, April Mathews, Bobby Toussaint and colleagues, with an educational antonella from [employer]. Review of Systems Const All systems reviewed & are unremarkable except as noted in HPI and below Card Denies chest pain at rest, Denies chest pain with activity, Denies edema, Denies irregular heart rhythm, Denies claudication, Denies dyspnea, Denies dyspnea on exertion, Denies orthopnea, Denies paroxysmal nocturnal dyspnea and Denies slow heart rate Resp Denies cough, Denies dyspnea and Denies dyspnea on exertion GI Reports abdominal pain, Denies change in bowel habits, Denies excessive flatus, Reports dyspepsia, Reports heartburn, Reports nausea and Denies vomiting Physical exam (Primary Care) Vital Signs: Last Vital Signs BP 136/84 10/18/24 11:24 BMI result Body Mass Index 25.2 Tobacco/Smoking Status: Tobacco use Status Tobacco use date assessed 04/09/24 10/18/24 11:31 Patient Tobacco Use Status Former Tobacco user 10/18/24 11:31 Tobacco use type Cigarette 10/18/24 11:31 e-Cigarette/Vaping Use Never Used 10/18/24 11:31 Thrive Assessment: Date of Thrive Assessment Date Thrive assessed 08/06/24 10/18/24 11:31 Currently or been in a relationship where the following occur: No concerns reported Resp Effort & Inspection: normal respiratory effort Auscultation: clear to auscultation bilaterally Cardio Jugular venous distension: no JVD Rate: regular rate Rhythm: regular rhythm Heart sounds: S1 normal heart sound present and S2 normal heart sound present GI Inspection: Yes normal to inspection Palpation (GI): Soft to palpation and Tenderness to palpation present (GI) in the epigastrum Auscultation: normal bowel sounds Extrem General: Yes full ROM Coding Level of Care Code Est Pt Level 4 (99185) Complex EM visit Add On G2211 Diagnoses Type 2 diabetes mellitus with hyperglycemia, with long-term current use of insulin E11.65; Z79.4 Diabetes mellitus correction insulin use: with terminal system operator use Diabetes mellitus complication status: with hyperglycemia Hyperlipidemia LDL goal <70 E78.5 Post-surgical hypothyroidism E89.0 Autoimmune hepatitis K75.4 Dilated bile duct K83.8 Gastroesophageal reflux disease, unspecified whether esophagitis present K21.9 Esophagitis presence: esophagitis presence not specified Time Spent (min) 25 Assessment & Plan Assessment & Plan (1) Type 2 diabetes mellitus: Code(s): E11.9 - Type 2 diabetes mellitus without complications Category: Medical Qualifiers: Diabetes mellitus correction insulin use: with correction use Diabetes mellitus complication status: with hyperglycemia Qualified Code(s): E11.65 - Type 2 diabetes mellitus with hyperglycemia; Z79.4 - rodent exterminator (current) use of insulin (2) Hyperlipidemia LDL goal <70: Code(s): E78.5 - Hyperlipidemia, unspecified Category: Medical (3) Post-surgical hypothyroidism: Code(s): E89.0 - Postprocedural hypothyroidism Category: Medical (4) Autoimmune hepatitis: Code(s): K75.4 - Autoimmune hepatitis Category: Medical (5) Dilated bile duct: Code(s): K83.8 - Other specified diseases of biliary tract Category: Medical (6) GERD (gastroesophageal reflux disease): Code(s): K21.9 - Gastro-esophageal reflux disease without esophagitis Category: Medical Qualifiers: Esophagitis presence: esophagitis presence not specified Qualified Code(s): K21.9 - Gastro-esophageal reflux disease without esophagitis Plan The patient will undergo an endoscopy next month to further evaluate the cause of her abdominal pain and hyperacidity. In the interim, her medication regimen will be adjusted by switching from omeprazole to pantoprazole and increasing the dose of famotidine to 40 mg twice daily. Carafate will be added twice daily until her gastroenterology appointment next week. Her diabetes management will continue under endocrinology supervision, with attention to her elevated HbA1c of 10.7%. Her hypothyroidism and dyslipidemia treatments with levothyroxine and rosuvastatin, respectively, will be maintained. Orders: Orders CA echo transthoracic complete Today R06.09 - Other forms of dyspnea Referrals Pulmonology Referral R06.09 - Other forms of dyspnea Medications: New pantoprazole 40 mg PO DAILY 30 tabs 1RF 30 days sucralfate (Carafate) 10 mL PO BID 140 mL 0RF 7 days famotidine 40 mg PO BID 60 tabs 1RF 30 days Discontinued omeprazole Discontinued Reason: Patient Completed Course 20 mg PO BID 14 days 28 caps 0RF A04.8 - Other specified bacterial intestinal infections famotidine Discontinued Reason: Patient Completed Course 20 mg PO BEDTIME 90 tabs 0RF
--- OUTSIDE RECORDS SUMMARY | 2024-10-18 12:18 | XMS_ITS | Encounter Summary ---
Author Organization [facility] Address [address] [place] [address] Care Team Providers Care Travel Coordinator Name Role Phone Сергей Becca Newberry Primary Care Provider [phone] Encounter Details Date Type Department Care Team (Late st Contact Info) Description 10/09/2024 Orders Only [facility] Interventional Radiology [address] [place] [address] Loida Marshall PA [address] [place] [address] Social History Tobacco Use Types Packs/Day Years [...] PM EDT documented as of this encounter Plan of Treatment Upcoming Encounters Date Type Department Care Team (Late st Contact Info) Description 01/15/2025 3:00 PM EDT Follow-Up [facility] Liver Transplant Services [address] [place], [place] [phone] Amber Islas MD [address] [place] [address] documented as of this encounter Visit Diagnoses Not on filedocumented in this encounter Care Teams Travel Coordinator Relationship Specialty Start Date End Date Becca Sprague [address] [facility] [address] Armida Huffman, [place] [address] PCP - General Internal Medicine 08/16/19 documented as of this encounter
--- OUTSIDE RECORDS SUMMARY | 2024-10-18 12:18 | XMS_ITS | Clinical Summary ---
Author Organization [employer] Address [address] [facility] 7[address] [place] [address] Care Team Providers Care County Superintendent Of Schools Name Role Phone Unavailable Primary Care Provider [...] Description 11/28/2024 2:00 PM EDT Office Visit [facility] [address] [place] [address] Ezra Cortezsa Health Maintenance Due Date Last [...] Most Recently Relevant to Health Maintenance Insurance [facility] MEDICAID STAND ADULT
--- OUTSIDE RECORDS SUMMARY | 2024-10-18 12:18 | XMS_ITS | Patient Health Record ---
Author Organization [facility] Address [address] [place] [address] Care Team Providers Care Urologist Name Role Phone Becca Sprague Primary Care Provider UnavailEsdras Cristobal Unavailable [phone] Allergies Allergen (clinical drug ingredient) Drug/Non Drug [...] Status Risk Notes Problem Irritable bowel syndrome (79228045) Irritable bowel syndrome (564.1) Active confirmed Problem Dysphagia (36839112) Dysphagia (787.20) Active confirmed Problem Gastroesophageal reflux disease (407674142) GERD (gastroesophag eal reflux disease) (530.81) Active confirmed Problem Esophageal spasm (69261488) Esophageal spasm (530.5) Active confirmed Problem Irritable bowel syndrome (96177711) IBS (irritable bowel syndrome) (564.1) Active confirmed Plan Of Treatment No Information Insurance Providers Payer Name Payer Address Payer Phone Subscriber Number Group Number Insured Name Patient Relationship to Insured Coverage Start Date Coverage End Date MEDICARE OF [place] [address] [place] [phone] [id number] DIEGO FORD Self - patient is the insured MEDICAID OF [facility] [address] [place] [phone] [id number] DIEGO FORD Self - patient is the [...] underlying colitis anxiety depression migranes hypothyroidism Denies [place],CVA,Lung disease,renal disease diverticulosis and internal hemorrhoids seen [...]
== END 2024-10-18 12:07 | disposition home or self-care (01) ==
LOC: HO.HMCH 11:20
PROVIDERS: PCP Internal Medicine; Visit Provider Internal Medicine
DX: E11.65 Type 2 diabetes mellitus with hyperglycemia (principal); Z79.4 Long term (current) use of insulin; K75.4 Autoimmune hepatitis; E78.5 Hyperlipidemia, unspecified; E89.0 Postprocedural hypothyroidism; K83.8 Other specified diseases of biliary tract; K21.9 Gastro-esophageal reflux disease without esophagitis

== ENCOUNTER → 2024-10-18 11:19 | Outpatient (BNVA) | payer MEDICARE, MEDICAID, SELFPAY | PROVIDERS: PCP Internal Medicine; Visit Provider Internal Medicine | DX: E11.65 Type 2 diabetes mellitus with hyperglycemia (principal); E78.5 Hyperlipidemia, unspecified; E89.0 Postprocedural hypothyroidism; K75.4 Autoimmune hepatitis; K83.8 Other specified diseases of biliary tract; K21.9 Gastro-esophageal reflux disease without esophagitis; Z79.4 Long term (current) use of insulin; Z79.899 Other long term (current) drug therapy | CPT/HCPCS: 99212 ==

== ENCOUNTER 2024-10-22 12:48 | Outpatient (REF) | payer MEDICARE, MEDICAID, SELFPAY ==
[2024-10-22 14:24] LABS: INTERNATIONAL NORM RATIO 1.0 (0.9-1.1); Prothrombin Time 12.0 SEC (10.9-12.4)
[2024-10-22 14:38] LABS: Alanine Aminotransferase 23 U/L (0-31); Albumin Level 4.9 g/dL (3.5-5.0); Alkaline Phosphatase 100 U/L (39-117); Aspartate Amino Transferase 24 U/L (5-31); Total Protein 9.1 g/dL (6.5-8.0)
== END 2024-10-22 12:49 | disposition home or self-care (01) ==
LOC: HO.LAB 12:48
PROVIDERS: PCP Internal Medicine; Visit Provider Internal Medicine
DX: K75.4 Autoimmune hepatitis (principal); K83.8 Other specified diseases of biliary tract; A04.8 Other specified bacterial intestinal infections; K21.9 Gastro-esophageal reflux disease without esophagitis; K63.9 Disease of intestine, unspecified
CPT/HCPCS: 36415; 80076; 85610; 86301; 99212

== ENCOUNTER 2024-10-22 12:48 | Outpatient (AMB) | payer MEDICARE, MEDICAID, SELFPAY ==
--- NOTE | 2024-10-22 12:50 | A.OFFVIS_ITS ---
Vital Signs 10/22/24 12:51 Height 5 ft 7 in Weight 158 lb 11.725 oz BMI 24.9 BP 123/61 Blood Pressure Location Rt radial Position Sitting Pulse 70 Intake Visit Reasons: AIH Intake Note: Yumiko presents as a follow up for [facility]. CC: She states she was in the ED on the - she does not feel the same she feels very off balanced and fatigued. Loss of appetite and states she does not have any pains in the stomach. She states that past 3 days her stomach has been more relaxed but there is a tenderness. When she tries to eat she gets nauseous. She has shortness of breath a lot as well. Pleasure Craft Sailor Required: No Allergies gadobutrol (From GADAVIST) Allergy (Severe, Verified 10/22/24 12:54) ANAPHYLAXIS hydroxychloroquine (Plaquenil) Allergy (Intermediate, Verified 10/22/24 12:54) rash,facial swelling levofloxacin (From LEVAQUIN) Allergy (Intermediate, Verified 10/22/24 12:54) ITCHY RASH pregabalin (From LYRICA) Allergy (Intermediate, Verified 10/22/24 12:54) STOMACH UPSET, Swelling tramadol Allergy (Intermediate, Verified 10/22/24 12:54) abdominal pain azathioprine Adverse Reaction (Intermediate, Verified 10/22/24 12:54) Nausea and Vomiting insulin aspart (From Novolog U-100 Insulin aspart) Adverse Reaction (Intermediate, Verified 10/22/24 12:54) chills, shaking, sweating, weakness and tachycardia Rakioys-IOW-PwB Reductase Inhibitor Adverse Reaction (Intermediate, Verified 12:54) transamimitis HPI Comments Details: This is a 56-year-old female past medical history of fibromyalgia, H pylori gastritis, who is following up for autoimmune hepatitis (with grade 2-3 activity and stage 3-4 fibrosis biopsy 11/2021). Recap: - Pt initially seen in 10/2021 for intermittent RUQ pain and elevated LFTs. Pt also has RA and was on MTX at one point but stopped this in summer 2021 due to elevation of LFTs. - Workup pos for ASMA 56. Previously check total IgG was elevated at 1884 in 2019. - Patient underwent liver biopsy on 12/18/21. Consistent with autoimmune hepatitis as suspected, with grade 2-3 activity and stage 3-4 fibrosis. - Treatment initially challenging due to labile sugars on pred and intolerance to Azathioprine. - Eventually switched to 6-MP in 03/2022. Adherence remained suboptimal throughout 2022 due to life events inclduing of her brother, surgeries leading to interruption in 6-MP which would then trigger AIH flare up. Has required multiple courses of high dose pred over the last 2 years. - Has also had ? of PSC based on elevated ALP and irregular dilation of CBD 14 mm ([facility] MRI scanned 07/2023) - H Pylori + since at least 2020. Tx deferred so far due to compliance issues. - Started on ozempic late 2023 which she self discontinued after weight loss from BMI 30 to 25. - MRI 04/2024 again with mid duct turn vs narrowing. Common hepatic duct dilated to 14 mm. 11/22/23: [place] Impression: 1. Normal colon and terminal ileum mucosa 2. Diverticulosis 3. Internal and external hemorrhoids Recommendations: - repeat colonoscopy for asymptomatic colorectal cancer screening in 10 years 10/22/24: Here for follow up. Had been to ER x 2 earlier this month for abd pain, N,V. Assoc with chills. No fevers. No sick contacts. Had a terrible experience 10/14 when her IV infiltrated with contrast. Had pain in left arm for days. Now also reporting altered sensation and weakness in that arm. CT abd/pel reports irregular wall thickening in transverse colon. Currently no abd pain or N/V. Was seen by Dr Janel Clement- notes reviewed. Pt mentions getting justine for possible ERCP but unable to find that documentation. I again expressed my concerns re CBD abnl in the context of AIH and that I remain concerned re PSC. LFTs are normal. ERCP remains the next best step pos sibly with spyglass however pt is unsure if she is getting EGD or ERCP done at [facility]. [facility] Medical History Pulmonary emphysema Hypothyroidism Type 2 diabetes mellitus Osteoarthritis of hand, left Chronic constipation Hypoactive bowel sounds Hand numbness Autoimmune thyroiditis Abdominal pain Inflammatory arthritis Breast mass, right Lung cyst Bilateral hand numbness Neck pain Dyslipidemia Post-surgical hypothyroidism Diabetic polyneuropathy associated with type 2 diabetes mellitus alf (current) use of insulin Chronic idiopathic constipation Low vitamin D level Weight loss GERD (gastroesophageal reflux disease) Diabetes type 2, uncontrolled Fibromyalgia Insomnia Surgical History Hx of arthroscopy of left knee History of liver biopsy Hx of removal of cyst History of hysterectomy History of thyroidectomy, total History of esophagogastroduodenoscopy (EGD) Hx of colonoscopy (1998) Family History Father Status post liver transplant, biliary anastomotic size mismatch Brother Cardiac arrest Mother No problems noted. Maternal Aunt Breast cancer Brother Essential hypertension Substance abuse Pure hypercholesterolemia Other Mental health problem Social History Household Members: None Housing: House Alcohol intake: never Patient Tobacco Use Status: Former Tobacco user Tobacco use type: Cigarette Cigarettes Per Day: 7 Years Smoked: 6 e-Cigarette/Vaping Use: Never Used Second Hand Smoke Exposure: No Advance Directives Date on File: 07/15/20 service: No Current occupational status: disabled Current occupation: right hand Cognitive needs: No Hearing needs: No Vision needs: No Female Reproductive History Menstrual Age of Menarche: 12 Review of Systems Const All systems reviewed & are unremarkable except as noted in HPI and below Physical Exam Exam Exam: No apparent distress Nonicteric Abdomen soft, nondistended Alert and oriented x3, using a walker. Vital Signs: Last Vital Signs Pulse 70 10/22/24 12:51 BP 123/61 10/22/24 12:51 BMI result Body Mass Index 24.9 Assessment & Plan Assessment & Plan (1) Autoimmune hepatitis: Code(s): K75.4 - Autoimmune hepatitis Category: Medical (2) Dilated bile duct: Code(s): K83.8 - Other specified diseases of biliary tract Category: Medical (3) H. pylori infection: Code(s): A04.8 - Other specified bacterial intestinal infections Category: Medical (4) GERD (gastroesophageal reflux disease): Code(s): K21.9 - Gastro-esophageal reflux disease without esophagitis Category: Medical Qualifiers: Esophagitis presence: esophagitis presence not specified Qualified Code(s): K21.9 - Gastro-esophageal reflux disease without esophagitis (5) Colon wall thickening: Code(s): K63.9 - Disease of intestine, unspecified Category: Medical Plan 1. AIH 2. ? PSC Patient has biopsy-proven autoimmune hepatitis. Appears to be in clinical remission at this time. Based on report, can not r/o ductal stricture, images not available for review - MRI done at [facility]. Have reached out to Dr Islas on cell phone to discuss ERCP +/- spy. Will also check LFTs and CA 19-9. Plan: * Continue 6-MP 50mg. * Awaiting response from Dr Islas * Osteopenia: - Dexa done 01/2024. - Already on Vit D. Started on bisphophonates. * Transplant candidacy: Established with [facility] Hep - Dr Islas. 3. Self limiting abd pain, N,V,D. Likely had infectious illness. CT reports irregular wall thickening in transverse colon. Had normal colo 2023. Will get a barium enema to start with and follow up with direct visualization if abnormal. 4. H Pylori Quad therapy started in June but pt was unable to tolerate due to side effects. To be reviewed at next visit. Will check re voquezna dual therapy. Follow up 3 months Orders: Orders [place] barium enema Today K63.9 - Disease of intestine, unspecified Carbohydrate Antigen 19-9 Today K83.8 - Other specified diseases of biliary tract Liver Panel Today K83.8 - Other specified diseases of biliary tract Prothrombin Time INR Today K83.8 - Other specified diseases of biliary tract Medications: Refilled mercaptopurine 50 mg PO DAILY 90 tabs 2RF Coding Level of Care Code Est Pt Level 5 (70008) Complex EM visit Add On G2211 Diagnoses Autoimmune hepatitis K75.4 Dilated bile duct K83.8 H. pylori infection A04.8 Gastroesophageal reflux disease, unspecified whether esophagitis present K21.9 Esophagitis presence: esophagitis presence not specified Colon wall thickening K63.9
[2024-10-22 12:51] VITALS: BP 123/61; PULSE 70; BMI 24.9
--- OUTSIDE RECORDS SUMMARY | 2024-10-22 13:31 | XMS_ITS | Encounter Summary ---
Author Organization [facility] Address [address] [place] [address] Care Team Providers Care Dental Specialist Name Role Phone Сергей Becca Newberry Primary Care Provider [phone] Encounter Details Date Type Department Care Team (Late st Contact Info) Description 10/09/2024 Orders Only [facility] Interventional Radiology [address] [place] [address] Loida Marshall PA [address] [place] [address] Social History Tobacco Use Types Packs/Day Years [...] Info) Description 01/15/2025 3:00 PM EDT Follow-Up [facility] Liver Transplant Services [address] [place], [place] [id number] Amber Islas MD [address] [place] [address] documented as of this encounter Visit Diagnoses Not on filedocumented in this encounter Care Teams Dental Specialist Relationship Specialty Start Date End Date Becca Sprague [address] Arm[address] Huffman, [place] [address] PCP - General Internal Medicine 08/16/19 documented as of this encounter
--- OUTSIDE RECORDS SUMMARY | 2024-10-22 13:31 | XMS_ITS | Clinical Summary ---
Author Organization [employer] Address [address] [facility] [address] [place] [address] Care Team Providers Care Electrical And Instrument Engineer Name Role Phone Unavailable Primary Care Provider [...] Description 11/28/2024 2:00 PM EDT Office Visit [facility] ADULT DENTAL [address] [place] [address] Ezra Cortezsa Health Maintenance Due Date Last [...] topic Meningococcal Vaccine Aged Out No benigno coel eligible based on patient's age to complete [...] Most Recently Relevant to Health Maintenance Insurance DENTAL-[facility] MEDICAID STAND ADULT
--- OUTSIDE RECORDS SUMMARY | 2024-10-22 13:31 | XMS_ITS | Patient Health Record ---
Author Organization [facility] Address [address] [place] [id number] Care Team Providers Care Third Helper Name Role Phone Becca Sprague Primary Care Provider UnavailEsdras Cristobal Unavailable [phone] Allergies Allergen (clinical drug ingredient) Drug/Non Drug [...] Status Risk Notes Problem Irritable bowel syndrome (75491964) Irritable bowel syndrome (564.1) Active confirmed Problem Dysphagia (03672608) Dysphagia (787.20) Active confirmed Problem Gastroesophageal reflux disease (670662063) GERD (gastroesophag eal reflux disease) (530.81) Active confirmed Problem Esophageal spasm (22490998) Esophageal spasm (530.5) Active confirmed Problem Irritable bowel syndrome (00514150) IBS (irritable bowel syndrome) (564.1) Active confirmed Plan Of Treatment No Information Insurance Providers Payer Name Payer Address Payer Phone Subscriber Number Group Number Insured Name Patient Relationship to Insured Coverage Start Date Coverage End Date MEDICARE OF [place] [address] [place] [phone] [id number] DIEGO FORD Self - patient is the insured MEDICAID OF [facility] [address] [place] [phone] [id number] DIEGO FORD Self - patient is the [...] underlying colitis anxiety depression migranes hypothyroidism Denies [place],CVA,Lung disease,renal disease diverticulosis and internal hemorrhoids seen [...]
== END 2024-10-22 13:44 | disposition home or self-care (01) ==
LOC: HO.HGI 12:49
PROVIDERS: PCP Internal Medicine; Visit Provider Internal Medicine
DX: K75.4 Autoimmune hepatitis (principal); K83.8 Other specified diseases of biliary tract; A04.8 Other specified bacterial intestinal infections; K21.9 Gastro-esophageal reflux disease without esophagitis; K63.9 Disease of intestine, unspecified
CPT/HCPCS: 99214; G2211

== ENCOUNTER 2024-11-01 07:37 | Day surgery (SDC) | payer MEDICARE, MEDICAID, SELFPAY ==
--- OUTSIDE RECORDS SUMMARY | 2024-10-16 13:08 | XMS_ITS | Clinical Summary ---
Author Organization [employer] Address [address] [facility] [address] [place] [address] Care Team Providers Care Embedded Software Manager Name Role Phone Unavailable Primary Care Provider [...] Description 11/28/2024 2:00 PM EDT Office Visit [facility] [address] [place] [address] Ezra Cortezsa Health Maintenance Due Date Last [...] Most Recently Relevant to Health Maintenance Insurance [facility] MEDICAID STAND ADULT
--- OUTSIDE RECORDS SUMMARY | 2024-10-16 13:08 | XMS_ITS | Patient Health Record ---
Author Organization [facility] Address [address] [place] [address] Care Team Providers Care Chairman Ceo Name Role Phone Becca Sprague Primary Care Provider UnavailEsdras Cristobal Unavailable [phone] Allergies Allergen (clinical drug ingredient) Drug/Non Drug [...] Status Risk Notes Problem Irritable bowel syndrome (84221967) Irritable bowel syndrome (564.1) Active confirmed Problem Dysphagia (52281232) Dysphagia (787.20) Active confirmed Problem Gastroesophageal reflux disease (479434212) GERD (gastroesophag eal reflux disease) (530.81) Active confirmed Problem Esophageal spasm (44329007) Esophageal spasm (530.5) Active confirmed Problem Irritable bowel syndrome (21712557) IBS (irritable bowel syndrome) (564.1) Active confirmed Plan Of Treatment No Information Insurance Providers Payer Name Payer Address Payer Phone Subscriber Number Group Number Insured Name Patient Relationship to Insured Coverage Start Date Coverage End Date MEDICARE OF [place] [address] [place] [address] [id number] DIEGO FORD Self - patient is the insured MEDICAID OF [facility] [address] [place] [phone] [id number] DIEGO FORD Self - patient is the [...] underlying colitis anxiety depression migranes hypothyroidism Denies [place],CVA,Lung disease,renal disease diverticulosis and internal hemorrhoids seen [...]
--- OUTSIDE RECORDS SUMMARY | 2024-10-16 13:08 | XMS_ITS | Encounter Summary ---
Author Organization [facility] Address [address] [place] [address] Care Team Providers Care Locomotive Electrician Name Role Phone Becca Sprague Primary Care Provider [phone] Encounter Details Date Type Department Care Team (Late st Contact Info) Description 10/12/2024 Orders Only [facility] Interventional Radiology [address] [place] [id number] Loida Marshall PA [address] [place] [address] Autoimmune hepatitis (HCC) (Primary Dx) Social History [...] mellitus Past Surgical History: Procedure Laterality Date [place] ESOPHAGOGASTRODUODENOSCOPY TRANSORAL DIAGNOSTIC N/A 06/03/2020 Procedure: UPPER ENDOSCOPY; DIAGNOSTIC WITH BRUSH/WASH (SP) WITH POSSIBLE MODERATE SEDATION; Surgeon: Al Chappell MD; Location: [facility]; Service: Gastroenterology Problem List: Patient Active Problem [...] Marshall PA-C Department of Interventional Radiology Pager [phone] documented in this encounter Plan of Treatment Upcoming Encounters Date Type Department Care Team (Late st Contact Info) Description 01/15/2025 3:00 PM EDT Follow-Up [facility] Liver Transplant Services [address] [place], [place] [id number] Amber Islas MD [address] [place], [place] [phone] Scheduled Orders Name Type Priority Associated Diagnoses Orde r Schedule Protime-INR Lab STAT Autoimmune hepatitis (HCC) Expected: 10/12/2024, Expires: 10/12/2025 documented as of this encounter Visit Diagnoses Diagnosis Autoimmune hepatitis (HCC)- Primary Autoimmune hepatitis documented in this encounter Care Teams Locomotive Electrician Relationship Specialty Start Date End Date Becca Sprague [address] [place] [address] [place] [address] PCP - General Internal Medicine 08/16/19 documented as of this encounter
[2024-10-30 08:43] VITALS: BMI 24.9
--- NOTE | 2024-10-31 08:35 | HO.ANESPROP2 ---
Documented by User: Brittany Chang NP 10/31/24 08:36 HPI - Anesthesia Eval Consult details Narrative: 59yo F for Upper Endoscopy Anesthesia Pre-Procedure Meds Is the patient on any of the following meds?: GLP1/DPP4 and SGLT2 Inhib PMFSH Active Problems Active Problems: All Active Problems Dilated cbd, acquired (Acute) Colon wall thickening (Acute) Dyspnea on exertion (Acute) Right shoulder pain (Acute) Plantar fasciitis, left (Acute) Peroneal tendinitis, left leg (Acute) Avulsion fracture of navicular bone of foot (Acute) Pain of right humerus (Acute) Right elbow pain (Acute) Primary osteoarthritis, right shoulder (Acute) Left foot pain (Acute) Anemia (Acute) Multiple allergies (Acute) Osteoarthritis of right knee (Acute) Primary osteoarthritis, right shoulder (Acute) Pain of right scapula (Acute) Right leg pain (Acute) Urge urinary incontinence (Acute) Right knee pain (Acute) Right calf pain (Acute) Mild major depression (Acute) Lumbar degenerative disc disease (Acute) Osteoarthritis of left knee (Acute) H/O arthroscopy of left knee (Acute) Sprain of right knee (Acute) Dilated bile duct (Acute) Osteopenia (Acute) Left knee pain (Acute) Tear of medial meniscus of left knee (Acute) Left knee sprain (Acute) Hyperlipidemia LDL goal <70 (Acute) Autoimmune thyroiditis (Acute) Autoimmune hepatitis (Acute) Generalized pain (Acute) Goiter (Acute) Low back pain (Acute) Seronegative rheumatoid arthritis (Acute) Dyspnea on exertion (Acute) Left wrist pain (Acute) Left hand pain (Acute) Rotator cuff tendonitis (Acute) De Quervain's disease (radial styloid tenosynovitis) (Acute) Hypothyroidism (Acute) Type 2 diabetes mellitus (Acute) Osteoarthritis of hand, left (Acute) Chronic constipation (Acute) Hypoactive bowel sounds (Acute) Hand numbness (Acute) Autoimmune thyroiditis (Acute) Abdominal pain (Acute) Inflammatory arthritis (Acute) Breast mass, right (Acute) Lung cyst (Acute) Bilateral hand numbness (Acute) Neck pain (Acute) Dyslipidemia (Acute) Post-surgical hypothyroidism (Acute) Chronic idiopathic constipation (Acute) Low vitamin D level (Acute) GERD (gastroesophageal reflux disease) (Acute) Fibromyalgia (Acute) Insomnia (Acute) Past Medical History Medical History (Updated 10/22/24 @ 13:28 by Cindy Zheng MD) Pulmonary emphysema Hypothyroidism Type 2 diabetes mellitus Osteoarthritis of hand, left Chronic constipation Hypoactive bowel sounds Hand numbness Autoimmune thyroiditis Abdominal pain Inflammatory arthritis Breast mass, right Lung cyst Bilateral hand numbness Neck pain Dyslipidemia Post-surgical hypothyroidism Diabetic polyneuropathy associated with type 2 diabetes mellitus 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 Maternal Aunt Breast cancer Brother Essential hypertension Substance abuse Pure hypercholesterolemia Other Mental health problem Family history of problems with anesthesia: No Surgical History Surgical History (Updated 10/30/24 @ 08:19 by Ashly Wallace RN) Hx of arthroscopy of right knee Hx of arthroscopy of left knee History of liver biopsy Hx of removal of cyst History of hysterectomy History of thyroidectomy, total History of esophagogastroduodenoscopy (EGD) Hx of colonoscopy (1998) History of Problems with Anesthesia: No Social History Social History Household Members: None Housing: House Alcohol intake: never Patient Tobacco Use Status: Former Tobacco user Tobacco use type: Cigarette Cigarettes Per Day: 7 Years Smoked: 6 e-Cigarette/Vaping Use: Never Used Second Hand Smoke Exposure: No Use of substances other than those prescribed or required for medical reasons: No Advance Directives: No Advance Directives Information Provided: Yes Advance Directives Date on File: 07/15/20 service: No Current occupational status: disabled Current occupation: right hand Cognitive needs: No Hearing needs: No Vision needs: No Meds Allergies Allergy/AdvReac Type Severity Reaction Status Date / Time gadobutrol (From GADAVIST) Allergy Severe ANAPHYLAXIS Verified 10/22/24 12:54 hydroxychloroquine Allergy Intermediate rash,facial Verified 10/22/24 12:54 (Plaquenil) swelling levofloxacin (From LEVAQUIN) Allergy Intermediate ITCHY RASH Verified 10/22/24 12:54 pregabalin (From LYRICA) Allergy Intermediate STOMACH Verified 10/22/24 12:54 UPSET, Swelling tramadol Allergy Intermediate abdominal Verified 10/22/24 12:54 pain azathioprine AdvReac Intermediate Nausea and Verified 10/22/24 12:54 Vomiting insulin aspart (From Novolog AdvReac Intermediate chills, Verified 10/22/24 12:54 U-100 Insulin aspart) shaking, sweating, weakness and tachycardia [id number]-VPK-OgO Reductase AdvReac Intermediate transamimit Verified 10/22/24 12:54 Inhibitor is Home Medications ?Medication ?Instructions ?Recorded ?Confirmed ?Last Taken ?Type ropinirole 0.25 mg tablet 0.25 mg PO BEDTIME PRN Restless 01/16/24 10/30/24 01/14/24 History Leg(S) Exam Height,Weight and Vital Signs: Height 5 ft 7 in Weight 72.121 kg Pertinent Lab Results Pertinent Lab Results: Laboratory Tests 10/14/24 19:20 WBC 5.4 Hgb 13.5 Hct 38.9 Plt Count 251 Sodium 141 Potassium 4.0 Chloride 106 Carbon Dioxide 23 BUN 22 H Creatinine 0.84 Assessment and Plan Assessment Anesthesia Assessment: Chart Reviewed Final Anesthetic Review Family History of Problems with Anesthesia: No History of Problems with Anesthesia: No Documented by User: Keaton Cannon MD 11/01/24 09:17 PMFSH Past Medical History Medical History (Updated 10/22/24 @ 13:28 by Cindy Zheng MD) Pulmonary emphysema Hypothyroidism Type 2 diabetes mellitus Osteoarthritis of hand, left Chronic constipation Hypoactive bowel sounds Hand numbness Autoimmune thyroiditis Abdominal pain Inflammatory arthritis Breast mass, right Lung cyst Bilateral hand numbness Neck pain Dyslipidemia Post-surgical hypothyroidism Diabetic polyneuropathy associated with type 2 diabetes mellitus 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 Maternal Aunt Breast cancer Brother Essential hypertension Substance abuse Pure hypercholesterolemia Other Mental health problem Surgical History Surgical History (Updated 10/30/24 @ 08:19 by Ashly Wallace RN) Hx of arthroscopy of right knee Hx of arthroscopy of left knee History of liver biopsy Hx of removal of cyst History of hysterectomy History of thyroidectomy, total History of esophagogastroduodenoscopy (EGD) Hx of colonoscopy (1998) Social History Social History Household Members: None Housing: House Alcohol intake: never Patient Tobacco Use Status: Former Tobacco user Tobacco use type: Cigarette Cigarettes Per Day: 7 Years Smoked: 6 e-Cigarette/Vaping Use: Never Used Second Hand Smoke Exposure: No Use of substances other than those prescribed or required for medical reasons: No Advance Directives: No Advance Directives Information Provided: Yes Advance Directives Date on File: 07/15/20 service: No Current occupational status: disabled Current occupation: right hand Cognitive needs: No Hearing needs: No Vision needs: No Meds Allergies Allergy/AdvReac Type Severity Reaction Status Date / Time gadobutrol (From GADAVIST) Allergy Severe ANAPHYLAXIS Verified 10/22/24 12:54 hydroxychloroquine Allergy Intermediate rash,facial Verified 10/22/24 12:54 (Plaquenil) swelling levofloxacin (From LEVAQUIN) Allergy Intermediate ITCHY RASH Verified 10/22/24 12:54 pregabalin (From LYRICA) Allergy Intermediate STOMACH Verified 10/22/24 12:54 UPSET, Swelling tramadol Allergy Intermediate abdominal Verified 10/22/24 12:54 pain azathioprine AdvReac Intermediate Nausea and Verified 10/22/24 12:54 Vomiting insulin aspart (From Novolog AdvReac Intermediate chills, Verified 10/22/24 12:54 U-100 Insulin aspart) shaking, sweating, weakness and tachycardia [id number] Reductase AdvReac Intermediate transamimit Verified 10/22/24 12:54 Inhibitor is Home Medications ?Medication ?Instructions ?Recorded ?Confirmed ?Last Taken ?Type ropinirole 0.25 mg tablet 0.25 mg PO BEDTIME PRN Restless 01/16/24 10/30/24 01/14/24 History Leg(S) Exam Airway Mallampati Class: II TM Dist: <=3cm Neck ROM: Full Partial: Lower Heart: ok Lungs: ok Assessment and Plan Assessment Anesthesia Assessment: Anesthesia Plan Discussed Final Anesthetic Review NPO: Yes ASA Class: III Final Preanesthetic Review: No Changes in Pt Med Stat, Meds/Allgs Chart Reviewed, Consent Obtained/Reviewed and Anes Risks/Benef Reviewed Patient Risk: Intermediate Procedure Risk: Intermediate Anesthetic Plan Anesthetic Plan: Agree w/ Assess. and Plan and TIVA Disposition: Standard PACU
--- NOTE | 2024-11-01 07:43 | MHC.SHP ---
Pre-Procedural Eval Section A - 24 Hr Update-Section A only Date of Service: 11/01/24 Section B - Complete if H&P > 30 days Chief Complaint: Unspecified abdominal pain,nausea Details of Present Illness: Pulmonary emphysema Hypothyroidism Type 2 diabetes mellitus Osteoarthritis of hand, left Chronic constipation Hypoactive bowel sounds Hand numbness Autoimmune thyroiditis Abdominal pain Inflammatory arthritis Breast mass, right Lung cyst Bilateral hand numbness Neck pain Dyslipidemia Post-surgical hypothyroidism Diabetic polyneuropathy associated with type 2 diabetes mellitus residential (current) use of insulin Chronic idiopathic constipation Low vitamin D level Weight loss GERD (gastroesophageal reflux disease) Diabetes type 2, uncontrolled Fibromyalgia Insomnia Surgical History Hx of arthroscopy of left knee History of liver biopsy Hx of removal of cyst History of hysterectomy History of thyroidectomy, total History of esophagogastroduodenoscopy (EGD) Hx of colonoscopy (1998) Present Medications: see Short Stay Collaborative assessment Allergies: Allergies Allergy/AdvReac Type Severity Reaction Status Date / Time gadobutrol (From GADAVIST) Allergy Severe ANAPHYLAXIS Verified 10/22/24 12:54 hydroxychloroquine Allergy Intermediate rash,facial Verified 10/22/24 12:54 (Plaquenil) swelling levofloxacin (From LEVAQUIN) Allergy Intermediate ITCHY RASH Verified 10/22/24 12:54 pregabalin (From LYRICA) Allergy Intermediate STOMACH Verified 10/22/24 12:54 UPSET, Swelling tramadol Allergy Intermediate abdominal Verified 10/22/24 12:54 pain azathioprine AdvReac Intermediate Nausea and Verified 10/22/24 12:54 Vomiting insulin aspart (From Novolog AdvReac Intermediate chills, Verified 10/22/24 12:54 U-100 Insulin aspart) shaking, sweating, weakness and tachycardia Dybkljv-ZVU-HdK Reductase AdvReac Intermediate transamimit Verified 10/22/24 12:54 Inhibitor is Review of Systems Review of Systems Comment: Ten point ROS negative Exam Exam Comment: Gen appear: No acute distress HEENT: no icterus Chest: No overt resp distress Abd: soft, nontender, nondistended Psych: Stable affect, answering questions appropriately Neuro: A/Ox3 noted to move all extremities spontaneously Ext: no peripheral edema Plan Diagnosis/Plan: Unchanged I have reviewed the history and physical and performed a pertinent physical examination on my patient. No changes have occurred unless specified. Time Spent With Patient Time: Total time managing care of this patient today ____ minutes.
[2024-11-01 09:35] VITALS: BP 85/35; PULSE 83; RESP 17; TEMP 36.1; O2SAT 96
--- NOTE | 2024-11-01 09:35 | P.OP_ITS ---
Operative Note Operative Note Date of Service: 11/01/24 Narrative: Procedure: Esophagogastroduodenoscopy Endoscopist: Cindy Zheng MD Indication: N/V Anesthesia Provider: Dr Keaton Cannon Anesthesia Type: MAC EGD Procedure:?? The procedure, indications, preparation and potential complications were reviewed with the patient, who indicated understanding and gave written informed consent to proceed. A physical exam was performed. The endoscope was introduced through the mouth, and advanced to the second part of duodenum. The mucosa was carefully examined on slow withdrawal of the endoscope. The patient tolerated the procedure well. There were no immediate complications.? ? EGD Findings:? * Esophagus:? Normal mucosa noted in the entire esophagus. No varices noted. The Z line was at 38 cm. Middle and lower esophagus forceps biopsies were obtained to rule out eosinophilic esophagitis. * Stomach:? Mild congestion and erythema in antrum. No obvious erosions noted. Retroflexion was performed in the cardia. Random cold forceps gastric biopsies were taken for histology. * Duodenum:? Normal mucosa was noted in the whole of the examined duodenum. Cold forceps biopsies were taken from duodenal bulb and second portion of the duodenum to rule out celiac sprue. ? EGD Impressions:? * Normal esophagus (biopsy) * Gastritis (biopsy) * Normal duodenum (biopsy) ?? Recommendations:?? * Follow biopsy results. Our office will call or send a letter with results within 7-10 days. * Avoid NSAIDs * Cont PPI * If H pylori +, patient will be prescribed eradication therapy followed by test of cure. Above has been reviewed with the patient.
[2024-11-01 09:50] VITALS: BP 93/43; PULSE 68; RESP 16; O2SAT 98
[2024-11-01 10:05] VITALS: BP 95/47; PULSE 59; RESP 18; TEMP 36.6; O2SAT 99
[2024-11-01 10:31] LABS: Glucose, Whole Blood 150 mg/dL (60-115)
== END 2024-11-01 10:45 | disposition home or self-care (01) ==
PROVIDERS: PCP Internal Medicine; Visit Provider Internal Medicine
PROC: 0DJ08ZZ Inspection of Upper Intestinal Tract, Via Natural or Artificial Opening Endoscopic (ICD-10-PCS; CPT 43235; principal; 2024-11-01 09:30)
DX: R10.9 Unspecified abdominal pain (principal); R11.0 Nausea; K29.50 Unspecified chronic gastritis without bleeding; B96.81 Helicobacter pylori [H. pylori] as the cause of diseases classified elsewhere; K63.9 Disease of intestine, unspecified; K83.8 Other specified diseases of biliary tract; M79.7 Fibromyalgia; K75.4 Autoimmune hepatitis; K74.60 Unspecified cirrhosis of liver; K21.9 Gastro-esophageal reflux disease without esophagitis; M06.9 Rheumatoid arthritis, unspecified; J43.9 Emphysema, unspecified; E03.9 Hypothyroidism, unspecified; E78.5 Hyperlipidemia, unspecified; E55.9 Vitamin D deficiency, unspecified; E11.42 Type 2 diabetes mellitus with diabetic polyneuropathy; Z79.4 Long term (current) use of insulin; Z79.85 Long-term (current) use of injectable non-insulin antidiabetic drugs; Z79.899 Other long term (current) drug therapy; Z88.1 Allergy status to other antibiotic agents; Z88.5 Allergy status to narcotic agent; Z88.8 Allergy status to other drugs, medicaments and biological substances; Z98.890 Other specified postprocedural states; Z87.891 Personal history of nicotine dependence
CPT/HCPCS: 43239; 82947; 88305; 88313; 88342; J2003; J2704

== ENCOUNTER → 2024-11-01 07:37 | Outpatient (BNV) | payer MEDICARE, MEDICAID, SELFPAY | PROVIDERS: PCP Internal Medicine; Visit Provider Internal Medicine | DX: R11.2 Nausea with vomiting, unspecified (principal); R10.9 Unspecified abdominal pain; K29.70 Gastritis, unspecified, without bleeding | CPT/HCPCS: 43239 ==

== ENCOUNTER 2024-11-02 13:50 | Outpatient (REF) | payer MEDICARE, MEDICAID, SELFPAY ==
--- NOTE | ~2024-11-02 | XR_ITS ---
EXAMINATION: XR FOREARM 2 VIEWS LEFT HISTORY: M79.622 - Pain in left upper arm COMPARISON: There are no prior studies available for comparison. FINDINGS: AP and lateral views of the left forearm are submitted. Osseous mineralization is normal. There is no fracture or dislocation. The visualized wrist and elbow joint spaces are preserved. The soft tissues are unremarkable. XR/XR forearm LT 2V IMPRESSION: Unremarkable examination of the left forearm. Electronically signed by: Esdras March MD 11/02/2024 03:18 PM EDT
--- NOTE | ~2024-11-02 | XR_ITS ---
EXAMINATION: XR HUMERUS LEFT HISTORY: M79.622 - Pain in left upper arm COMPARISON: There are no prior studies available for comparison. FINDINGS: AP and lateral views of the left humerus are submitted. Osseous mineralization is normal. There is no fracture or dislocation. The visualized shoulder and elbow joint spaces are preserved. The soft tissues are unremarkable. XR/XR humerus LT IMPRESSION: Unremarkable examination of the left humerus. Electronically signed by: Esdras March MD 11/02/2024 03:17 PM EDT
--- OUTSIDE RECORDS SUMMARY | 2024-11-02 14:38 | XMS_ITS | Clinical Summary ---
Author Organization [employer] Address [address] [place] [address] Care Team Providers Care House Fellow Name Role Phone Unavailable Primary Care Provider [...] Description 11/28/2024 2:00 PM EDT Office Visit [facility] [address] [place] [address] Ezra Cortezsa Health Maintenance Due Date Last [...] Most Recently Relevant to Health Maintenance Insurance [facility] MEDICAID STAND ADULT
== END 2024-11-02 13:51 | disposition home or self-care (01) ==
LOC: HO.XRAY 13:50
PROVIDERS: PCP Internal Medicine; Visit Provider Nurse Practitioner Family
DX: M79.622 Pain in left upper arm (principal)
CPT/HCPCS: 73060; 73090; 99212

== ENCOUNTER 2024-11-02 13:50 | Outpatient (AMB) | payer MEDICARE, MEDICAID, SELFPAY ==
--- OUTSIDE RECORDS SUMMARY | 2024-11-02 13:53 | XMS_ITS | Encounter Summary ---
Author Organization [facility] Address [address] [place] [address] Care Team Providers Care Children'S Program Coordinator Name Role Phone Сергей Becca Newberry Primary Care Provider [phone] Encounter Details Date Type Department Care Team (Late st Contact Info) Description 10/09/2024 Orders Only [facility] Interventional Radiology [address] [place] [address] Loida Marshall PA [address] [place] [address] Social History Tobacco Use Types Packs/Day Years [...] Info) Description 01/15/2025 3:00 PM EDT Follow-Up [facility] Liver Transplant Services [address], [place] [id number] Amber Islas MD [address] [place] [address] documented as of this encounter Visit Diagnoses Not on filedocumented in this encounter Care Teams Children'S Program Coordinator Relationship Specialty Start Date End Date Becca Sprague [address] [facility] [address] Armida Huffman, [place] [address] PCP - General Internal Medicine 08/16/19 documented as of this encounter
--- OUTSIDE RECORDS SUMMARY | 2024-11-02 13:53 | XMS_ITS | Patient Health Record ---
Author Organization [facility] Address [address] [place] [id number] Care Team Providers Care Human Resource Officer Name Role Phone Bceca Sprague Primary Care Provider UnavailEsdras Cristobal Unavailable [phone] Allergies Allergen (clinical drug ingredient) Drug/Non Drug [...] Status Risk Notes Problem Irritable bowel syndrome (86069209) Irritable bowel syndrome (564.1) Active confirmed Problem Dysphagia (75004829) Dysphagia (787.20) Active confirmed Problem Gastroesophageal reflux disease (692821464) GERD (gastroesophag eal reflux disease) (530.81) Active confirmed Problem Esophageal spasm (47296676) Esophageal spasm (530.5) Active confirmed Problem Irritable bowel syndrome (81327687) IBS (irritable bowel syndrome) (564.1) Active confirmed Plan Of Treatment No Information Insurance Providers Payer Name Payer Address Payer Phone Subscriber Number Group Number Insured Name Patient Relationship to Insured Coverage Start Date Coverage End Date MEDICARE OF [place] [address] [place] [id number] [id number] DIEGO FORD Self - patient is the insured MEDICAID OF [facility] [address] [place] [phone] [id number] DIEGO FORD Self - patient is the [...] underlying colitis anxiety depression migranes hypothyroidism Denies IN,CVA,Lung disease,renal disease diverticulosis and internal hemorrhoids seen [...]
--- NOTE | 2024-11-02 13:54 | MHC.PC.OV ---
Vital Signs 11/02/24 13:55 Height 5 ft 7 in Weight 159 lb BMI 24.9 BP 130/76 Blood Pressure Location Rt brachial Position Sitting Pulse 74 Pulse Source Pulse Oximeter Temp 97.1 F Temp Source Temporal Artery Scan Pulse Oximetry (%) 100 Oxygen Delivery Method Room Air Intake Visit Reasons: [facility] 10/14 LT arm weakness and tingling Intake Note: Patient is here to follow-up after a visit the emergency department at [facility] on 10/14/24 Electronic Gaming Device Supervisor Required: No Team Psychologist: Not Required per policy Accompanied by: Self / Same As Patient Allergies gadobutrol (From GADAVIST) Allergy (Severe, Verified 11/02/24 13:55) ANAPHYLAXIS hydroxychloroquine (Plaquenil) Allergy (Intermediate, Verified 11/02/24 13:55) rash,facial swelling levofloxacin (From LEVAQUIN) Allergy (Intermediate, Verified 11/02/24 13:55) ITCHY RASH pregabalin (From LYRICA) Allergy (Intermediate, Verified 11/02/24 13:55) STOMACH UPSET, Swelling tramadol Allergy (Intermediate, Verified 11/02/24 13:55) abdominal pain azathioprine Adverse Reaction (Intermediate, Verified 11/02/24 13:55) Nausea and Vomiting insulin aspart (From Novolog U-100 Insulin aspart) Adverse Reaction (Intermediate, Verified 11/02/24 13:55) chills, shaking, sweating, weakness and tachycardia Vukgfzx-UVO-XdD Reductase Inhibitor Adverse Reaction (Intermediate, Verified 11/02/24 13:55) transamimitis Tobacco use date assessed: 11/02/24 Dental Screening Dental Screen Date: 04/09/24 HPI HPI Comments History of Present Illness Details 59 y/o Female patient who presents to the clinic today for c/o left Upper Extremity pain associated with numbness/tingling and weakness since 10/14. She had IV Dye Injected into her Vein for CT Abdomen with contrast on 10/14. Reports experiencing severe burning and pain at the IV site during the procedure, but the Animal Ecologist refused to stop the infusion and continued despite her being in excruciating pain. States that her Arm was swollen and turned blue. Currently unable to bend and or lift anything with left Arm/hand. Pt asking for an EMG testing and an urgent U/S. Exam of the Left Upper Arm completely normal, no swelling, color [place], normal pulses and Normal ROM. Low chance of DVT or Phlebitis. No indication for Urgent U/S at this time. Ordered Plain Film Xrays of left Upper Arm. Pt would rather make an appointment with her PCP who knows her well and Familiar with her medical problems. 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 Chronic idiopathic constipation Low vitamin D level Weight loss GERD (gastroesophageal reflux disease) Diabetes type 2, uncontrolled Fibromyalgia Insomnia Surgical History (Updated 11/02/24 @ 14:00 by LINDA Wu) History of endoscopy Hx of arthroscopy of right knee Hx of arthroscopy of left knee History of liver biopsy Hx of removal of cyst History of hysterectomy History of thyroidectomy, total History of esophagogastroduodenoscopy (EGD) Hx of colonoscopy (1998) Family History Father Status post liver transplant, biliary anastomotic size mismatch Brother Cardiac arrest Mother No problems noted. Maternal Aunt Breast cancer Brother Essential hypertension Substance abuse Pure hypercholesterolemia Other Mental health problem Social History Household Members: None Housing: House Alcohol intake: never Patient Tobacco Use Status: Former Tobacco user Tobacco use type: Cigarette Cigarettes Per Day: 7 Years Smoked: 6 e-Cigarette/Vaping Use: Never Used Second Hand Smoke Exposure: Yes Advance Directives Date on File: 07/15/20 service: No Current occupational status: disabled Current occupation: right hand Cognitive needs: Yes (Walker) Hearing needs: No Vision needs: No Female Reproductive History Menstrual Age of Menarche: 12 Questionnaire Thrive Questionnaire Date Thrive assessed: 08/06/24 I am a: Patient What is your living situation today?: I have a steady place to live Within the past 12 months, did the food you bought not last and you didn't have the money to get more?: Sometimes True Within the past 12 months, did you worry whether your food would run out before you got money to buy more?: Often true Do you have trouble paying for medicines?: No Do you have trouble getting transportation to medical appointments?: Yes Do you have trouble paying your heating and electricity bill?: Yes Do you have trouble taking care of your child, family member or friend?: No Do you have trouble with day-to-day activities such as bathing, preparing meals, shopping, managing finances, etc.?: No Are you currently unemployed and looking for a job?: No Are you interested in more education?: No Please select the resources that you would like help with: None Currently or been in a relationship where the following occur: No concerns reported THRIVE Score: 4 HATTIE-7 AMB Questionnaire HATTIE-7 Date HATTIE - 7 assessed: 08/06/24 Source: Developed by Drs. Esdras Tang, April Mathews, Bobby Toussaint and colleagues, with an educational antonella from [employer]. Review of Systems Const All systems reviewed & are unremarkable except as noted in HPI and below Physical exam (Primary Care) Vital Signs: Last Vital Signs Temp 97.1 F 11/02/24 13:55 Pulse 74 11/02/24 13:55 BP 130/76 11/02/24 13:55 Pulse Ox 100 11/02/24 13:55 Oxygen Delivery Method Room Air 11/02/24 13:55 BMI result Body Mass Index 24.9 Tobacco/Smoking Status: Tobacco use Status Tobacco use date assessed 11/02/24 11/02/24 14:02 Patient Tobacco Use Status Former Tobacco user 11/02/24 14:02 Tobacco use type Cigarette 11/02/24 14:02 e-Cigarette/Vaping Use Never Used 11/02/24 14:02 Thrive Assessment: Date of Thrive Assessment Date Thrive assessed 08/06/24 11/02/24 14:02 Currently or been in a relationship where the following occur: No concerns reported Const General: no acute distress Nutritional Appearance: overweight Orientation/consciousness: patient oriented x3 Limitations: ambulation with walker Resp Effort & Inspection: normal respiratory effort Auscultation: clear to auscultation bilaterally Cardio Heart sounds: S1 normal heart sound present and S2 normal heart sound present Skin General skin exam: no rashes or lesions noted Neuro General: patient oriented x3 and moves all extremities Extrem General: Yes normal to inspection, Yes full ROM and Yes capillary refill normal Right upper extremity: shoulder/upper arm Details: normal to inspection and normal ROM; no swelling, no abrasions, no ecchymosis, no crepitus and no unusual warmth and elbow/forearm Details: normal to inspection, tenderness Location: of the olecranon and of the antecubital fossa, normal ROM and distal pulses intact; no swelling, no unusual warmth, no abrasions, no lacerations, no ecchymosis, no crepitus and no deformity Left upper extremity: normal to inspection Coding Level of Care Code Est Pt Level 4 (66311) Diagnoses Left upper arm pain M79.622 Time Spent (min) 20 Assessment & Plan Assessment & Plan (1) Left upper arm pain: Code(s): M79.622 - Pain in left upper arm Category: Medical Plan: Exam of the Left Upper Arm completely normal, no swelling, color [place], normal pulses and Normal ROM. Low chance of DVT or Phlebitis. No indication for Urgent U/S at this time. Ordered Plain Film Xrays of left Upper Arm. Pt would rather make an appointment with her PCP who knows her well and Familiar with her medical problems. Orders: Orders XR forearm LT 2V Today M79.622 - Pain in left upper arm XR humerus LT Today M79.622 - Pain in left upper arm
[2024-11-02 13:55] VITALS: BP 130/76; PULSE 74; TEMP 36.2; O2SAT 100; BMI 24.9
== END 2024-11-02 14:27 | disposition home or self-care (01) ==
LOC: HO.HMCH 13:51
PROVIDERS: PCP Internal Medicine; Visit Provider Nurse Practitioner Family
DX: M79.622 Pain in left upper arm (principal)

== ENCOUNTER → 2024-11-02 14:42 | Outpatient (BNV) | payer MEDICARE, MEDICAID, SELFPAY | PROVIDERS: PCP Internal Medicine; Visit Provider Radiology Diagnostic Radiology | DX: M79.622 Pain in left upper arm (principal) | CPT/HCPCS: 73060; 73090 ==

== ENCOUNTER 2024-11-06 13:30 | Outpatient (AMB) | payer MEDICARE, MEDICAID, SELFPAY ==
[2024-11-06 13:43] VITALS: BP 127/62; PULSE 75; O2SAT 98; BMI 25.1
--- NOTE | 2024-11-06 13:43 | A.OFFVIS_ITS ---
Vital Signs 11/06/24 13:43 Height 5 ft 7 in Weight 160 lb BMI 25.1 BP 127/62 Blood Pressure Location Lt brachial Position Sitting Pulse 75 Pulse Source Pulse Oximeter Pulse Oximetry (%) 98 Oxygen Delivery Method Room Air Intake Visit Reasons: Dyspnea Allergies gadobutrol (From GADAVIST) Allergy (Severe, Verified 11/06/24 13:44) ANAPHYLAXIS hydroxychloroquine (Plaquenil) Allergy (Intermediate, Verified 11/06/24 13:44) rash,facial swelling levofloxacin (From LEVAQUIN) Allergy (Intermediate, Verified 11/06/24 13:44) ITCHY RASH pregabalin (From LYRICA) Allergy (Intermediate, Verified 11/06/24 13:44) STOMACH UPSET, Swelling tramadol Allergy (Intermediate, Verified 11/06/24 13:44) abdominal pain azathioprine Adverse Reaction (Intermediate, Verified 11/06/24 13:44) Nausea and Vomiting insulin aspart (From Novolog U-100 Insulin aspart) Adverse Reaction (Intermediate, Verified 11/06/24 13:44) chills, shaking, sweating, weakness and tachycardia Ocpydpi-XXQ-GtD Reductase Inhibitor Adverse Reaction (Intermediate, Verified 11/06/24 13:44) transamimitis HPI HPI Dyspnea: Details: 59-year-old lady, former approximately 10 pack-year smoker, quit over 10 years prior referred for evaluation of biapical emphysema noted initially on cervical CT obtained for evaluation of bilateral arm tingling/pain.? After that patient had a dedicated CT chest that redemonstrated mild bilateral upper lobe predominant emphysema stable on follow-up CT.? Patient also complains of intermittent dyspnea on exertion, particularly when ascending stairs.? She was tried on Stiolto with no improvement. After the last office visit patient states that over the last several months she started developed more dyspnea on exertion, however she denies any wheezing. 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 Chronic idiopathic constipation Low vitamin D level Weight loss GERD (gastroesophageal reflux disease) Diabetes type 2, uncontrolled Fibromyalgia Insomnia Surgical History (Updated 11/02/24 @ 14:00 by LINDA Wu) History of endoscopy Hx of arthroscopy of right knee Hx of arthroscopy of left knee History of liver biopsy Hx of removal of cyst History of hysterectomy History of thyroidectomy, total History of esophagogastroduodenoscopy (EGD) Hx of colonoscopy (1998) Family History Father Status post liver transplant, biliary anastomotic size mismatch Brother Cardiac arrest Mother No problems noted. Maternal Aunt Breast cancer Brother Essential hypertension Substance abuse Pure hypercholesterolemia Other Mental health problem Social History Household Members: None Housing: House Alcohol intake: never Patient Tobacco Use Status: Former Tobacco user Tobacco use type: Cigarette Cigarettes Per Day: 7 Years Smoked: 6 e-Cigarette/Vaping Use: Never Used Second Hand Smoke Exposure: Yes Advance Directives Date on File: 07/15/20 service: No Current occupational status: disabled Current occupation: right hand Cognitive needs: Yes (Walker) Hearing needs: No Vision needs: No Female Reproductive History Menstrual Age of Menarche: 12 Review of Systems Const Denies daytime sleepiness, Denies excessive sweating, Denies fatigue, Denies fever(s), Denies lethargy, Denies malaise, Denies night sweats, Denies snoring and Denies weight loss Eyes Denies blurry vision and Denies itchy eyes ENT Denies nasal congestion, Denies post nasal drip, Denies sinus pain, Denies sinus pressure and Denies other ( Thrush) Card Denies chest pain, Denies pedal edema, Denies dyspnea, Denies orthopnea and Denies paroxysmal nocturnal dyspnea Resp Denies cough, Denies hemoptysis, Denies excessive phlegm production, Denies dyspnea, Denies snoring and Denies wheezing GI Denies abdominal pain and Denies heartburn Musc Denies myalgias, Denies arthralgias and Denies joint swelling Skin/Breast Denies rash Neuro Denies memory loss and Denies seizure-like activity Psych Denies abnormal sleep pattern, Denies anxiety and Denies memory loss Endo Denies excessive sweating, Denies fatigue and Denies heat intolerance Leonides/Lymph Denies easy bruising Aller/Immun Denies itchy eyes, Denies seasonal rhinorrhea and Denies wheezing Physical Exam Vital Signs: Last Vital Signs Pulse 75 11/06/24 13:43 BP 127/62 11/06/24 13:43 Pulse Ox 98 11/06/24 13:43 Oxygen Delivery Method Room Air 11/06/24 13:43 BMI result Body Mass Index 25.1 Const General: no acute distress and alert Nutritional Appearance: not obese Orientation/consciousness: Other orientation findings ( oriented) HEENT Head: Yes atraumatic Eyes General: appearance normal, both eyes and all related structures Sclerae: sclerae normal EOM: EOMs intact bilaterally Neck Neck: Yes supple Lymphatic: no lymphadenopathy noted Resp Effort & Inspection: normal respiratory effort and no use of accessory muscles Auscultation: clear to auscultation bilaterally Cardio Rate: regular rate Rhythm: regular rhythm Heart sounds: no gallops, no murmurs and no rubs Skin General skin exam: other ( warm) Extrem General: No clubbing, No cyanosis and No edema Assessment & Plan Assessment & Plan (1) Dyspnea on exertion: Code(s): R06.00 - Dyspnea, unspecified Category: Medical (2) Pulmonary emphysema: Code(s): J43.9 - Emphysema, unspecified Category: Medical Plan Unclear etiology of patient's symptoms at this time, will repeat pulmonary function test. Orders: Orders PFT pulmonary function test Today R06.00 - Dyspnea, unspecified Coding Level of Care Code Est Pt Level 3 (45876) Diagnoses Dyspnea on exertion R06.00 Pulmonary emphysema J43.9
--- OUTSIDE RECORDS SUMMARY | 2024-11-06 14:21 | XMS_ITS | Encounter Summary ---
Author Organization [facility] Address [address] [place] [address] Care Team Providers Care Labview Programmer Name Role Phone Сергей Becca Newberry Primary Care Provider [phone] Encounter Details Date Type Department Care Team (Late st Contact Info) Description 10/09/2024 Orders Only [facility] Interventional Radiology [address] [place] [address] Loida Marshall PA [address] [place] [address] Social History Tobacco Use Types Packs/Day Years [...] Info) Description 01/15/2025 3:00 PM EDT Follow-Up [facility] Liver Transplant Services [address], [place] [phone] Amber Islas MD [address] [place] [address] documented as of this encounter Visit Diagnoses Not on filedocumented in this encounter Care Teams Labview Programmer Relationship Specialty Start Date End Date Becca Sprague [address] [facility] [address] Armida Huffman, [place] [address] PCP - General Internal Medicine 08/16/19 documented as of this encounter
--- OUTSIDE RECORDS SUMMARY | 2024-11-06 14:22 | XMS_ITS | Clinical Summary ---
Author Organization [employer] Address [address] [place] [address] Care Team Providers Care Parcel Post Clerk Name Role Phone Unavailable Primary Care Provider [...] Description 11/28/2024 2:00 PM EDT Office Visit [facility] [address] [place] [address] Ezra Cortezsa Health Maintenance Due Date Last [...] Most Recently Relevant to Health Maintenance Insurance DENTAL-[facility] MEDICAID STAND ADULT
--- OUTSIDE RECORDS SUMMARY | 2024-11-06 14:22 | XMS_ITS | Patient Health Record ---
Author Organization [facility] Address [address] [place] [id number] Care Team Providers Care Academic Affairs Assistant Name Role Phone Becca Sprague Primary Care Provider UnavailEsdras Cristobal Unavailable [phone] Allergies Allergen (clinical drug ingredient) Drug/Non Drug [...] Status Risk Notes Problem Irritable bowel syndrome (28298808) Irritable bowel syndrome (564.1) Active confirmed Problem Dysphagia (39440352) Dysphagia (787.20) Active confirmed Problem Gastroesophageal reflux disease (685661568) GERD (gastroesophag eal reflux disease) (530.81) Active confirmed Problem Esophageal spasm (23825131) Esophageal spasm (530.5) Active confirmed Problem Irritable bowel syndrome (48593715) IBS (irritable bowel syndrome) (564.1) Active confirmed Plan Of Treatment No Information Insurance Providers Payer Name Payer Address Payer Phone Subscriber Number Group Number Insured Name Patient Relationship to Insured Coverage Start Date Coverage End Date MEDICARE OF [place] [address] [place] [address] [phone] [id number] DIEGO FORD Self - patient is the insured MEDICAID OF [facility] [address] [place] [phone] [id number] DIEGO FORD Self - patient is the [...] underlying colitis anxiety depression migranes hypothyroidism Denies [place],CVA,Lung disease,renal disease diverticulosis and internal hemorrhoids seen [...]
== END 2024-11-06 14:06 | disposition home or self-care (01) ==
LOC: HO.HPS 13:31
PROVIDERS: PCP Internal Medicine; Visit Provider Internal Medicine Pulmonary Disease
DX: R06.00 Dyspnea, unspecified (principal); J43.9 Emphysema, unspecified
CPT/HCPCS: 99213

== ENCOUNTER → 2024-11-06 13:30 | Outpatient (BNVA) | payer MEDICARE, MEDICAID, SELFPAY | PROVIDERS: PCP Internal Medicine; Visit Provider Internal Medicine Pulmonary Disease | DX: R06.09 Other forms of dyspnea (principal); J43.9 Emphysema, unspecified | CPT/HCPCS: 99212 ==

== ENCOUNTER 2024-11-15 16:11 | Outpatient (AMB) | payer MEDICARE, MEDICAID, SELFPAY ==
--- OUTSIDE RECORDS SUMMARY | 2024-11-15 16:13 | XMS_ITS | Clinical Summary ---
Author Organization [employer] Address [address] [facility] [address] [place] [address] Care Team Providers Care Derrick Operator Name Role Phone Unavailable Primary Care Provider [...] Description 11/28/2024 2:00 PM EDT Office Visit [facility] [address] [place] [address] Ezra Cortezsa Health Maintenance Due Date Last [...] Most Recently Relevant to Health Maintenance Insurance DENTAL-[facility] MEDICAID STAND ADULT
--- OUTSIDE RECORDS SUMMARY | 2024-11-15 16:13 | XMS_ITS | Patient Health Record ---
Author Organization [facility] Address [address] [place] [id number] Care Team Providers Care Physician'S Aide Name Role Phone Becca Sprague Primary Care Provider UnavailEsdras Cristobal Unavailable [phone] Allergies Allergen (clinical drug ingredient) Drug/Non Drug [...] Status Risk Notes Problem Irritable bowel syndrome (91493682) Irritable bowel syndrome (564.1) Active confirmed Problem Dysphagia (63264064) Dysphagia (787.20) Active confirmed Problem Gastroesophageal reflux disease (085908290) GERD (gastroesophag eal reflux disease) (530.81) Active confirmed Problem Esophageal spasm (45432027) Esophageal spasm (530.5) Active confirmed Problem Irritable bowel syndrome (72382569) IBS (irritable bowel syndrome) (564.1) Active confirmed Plan Of Treatment No Information Insurance Providers Payer Name Payer Address Payer Phone Subscriber Number Group Number Insured Name Patient Relationship to Insured Coverage Start Date Coverage End Date MEDICARE OF [place] [address] [place] [phone] [id number] DIEGO FORD Self - patient is the insured MEDICAID OF [facility] [address] [place] [phone] [id number] DIEGO FORD Self - patient is the [...] underlying colitis anxiety depression migranes hypothyroidism Denies [place],CVA,Lung disease,renal disease diverticulosis and internal hemorrhoids seen [...]
--- NOTE | 2024-11-15 16:49 | MHC.PC.OV ---
Vital Signs 11/15/24 16:50 Height 5 ft 7 in Weight 159 lb BMI 24.9 BP 124/58 L Blood Pressure Location Rt brachial Position Sitting Respiration 18 Pulse 68 Pulse Source Pulse Oximeter Temp 96 F L Temp Source Temporal Artery Scan Pulse Oximetry (%) 97 Oxygen Delivery Method Room Air Intake Visit Reasons: restless on left arm Director Of Community Services Required: No Accompanied by: Self / Same As Patient Allergies gadobutrol (From GADAVIST) Allergy (Severe, Verified 11/15/24 17:07) ANAPHYLAXIS hydroxychloroquine (Plaquenil) Allergy (Intermediate, Verified 11/15/24 17:07) rash,facial swelling levofloxacin (From LEVAQUIN) Allergy (Intermediate, Verified 11/15/24 17:07) ITCHY RASH pregabalin (From LYRICA) Allergy (Intermediate, Verified 11/15/24 17:07) STOMACH UPSET, Swelling tramadol Allergy (Intermediate, Verified 11/15/24 17:07) abdominal pain azathioprine Adverse Reaction (Intermediate, Verified 11/15/24 17:07) Nausea and Vomiting insulin aspart (From Novolog U-100 Insulin aspart) Adverse Reaction (Intermediate, Verified 11/15/24 17:07) chills, shaking, sweating, weakness and tachycardia Yxdrhbt-DKS-MtL Reductase Inhibitor Adverse Reaction (Intermediate, Verified 11/15/24 17:07) transamimitis Medication List - Last Reconciled 11/15/24 by Becca Newberry MD Accu-Chek Guide Glucose Meter (blood-glucose meter) As directed NS Accu-Chek Guide test strips (blood sugar diagnostic) twice daily NS albuterol sulfate 90 mcg/actuation 2 puffs inhalation Q6H PRN 30 days alendronate 70 mg PO QWEEK 90 days [bath bench with back As directed] [bed rails As directed] bismuth subsalicylate 2 tabs PO QID 14 days cholecalciferol (vitamin D3) 50 mcg PO DAILY 90 days dicyclomine 20 mg PO QID PRN docusate sodium (Colace) 100 mg PO BID empagliflozin (Jardiance) 10 mg PO DAILY 30 days ergocalciferol (vitamin D2) 1,250 mcg PO WE 90 days famotidine 40 mg PO BID 30 days flash glucose scanning reader (GlamBox Liza 2 Otis) As directed flash glucose sensor (FreeStyle Liza 2 Sensor kit) As directed -change every 14 days insulin degludec (Tresiba FlexTouch U-200 insulin) 175 units (0.875 mL) subcut BID 90 days insulin lispro 12 units (0.12 mL) subcut DAILY 30 days NS lancets (Accu-Chek Softclix Lancets) As directed bid for use with accucheck guide meter drums were initially dispensed and do not go with her lancing device levocetirizine 5 mg PO DAILY PRN 30 days levothyroxine 200 mcg PO DAILY 90 days levothyroxine 50 mcg PO DAILY 90 days loratadine 10 mg PO DAILY 90 days mercaptopurine 50 mg PO DAILY ondansetron 4 mg PO Q8H PRN oxycodone 10 mg PO Q8H PRN 30 days pantoprazole 40 mg PO DAILY 30 days peg 3350-electrolytes 236-22.74-6.74 -5.86 gram (Golytely) 240 mL PO Q10M pen needle, diabetic bid ropinirole 0.25 mg PO BEDTIME PRN rosuvastatin 10 mg PO DAILY 90 days semaglutide (Ozempic) 0.5 mg (0.736 mL) subcut QWEEK 4 weeks sucralfate (Carafate) 10 mL PO QID PRN sucralfate (Carafate) 10 mL PO BID 7 days underpads (Bed Underpads) As directed vonoprazan-amoxicillin 20 mg (28)- 500 mg (84) (Voquezna Dual Edgar) Take Vonoprazan 20 mg twice daily plus amoxicillin 1 g three times daily orally per package directions; PO PER PKG DIR 14 days zolpidem 10 mg PO BEDTIME 30 days Tobacco use date assessed: 11/15/24 Dental Screening Dental Screen Date: 11/15/24 Did you have a dental visit in the last 12 months?: Yes Did you have a dental problem in the last 6 months where you did not have access to dental care?: No Was dental information given to patient?: Patient has dentist HPI HPI Comments History of Present Illness Details The patient is a 59-year-old female presenting with left arm pain and weakness. The symptoms began after an IV injection during a CT scan of the abdomen and pelvis on October 14, 2024. The patient experienced warmth during the IV infusion, and subsequently, the left arm became swollen at the injection site. Currently, the left arm is not swollen, but the patient reports weakness and difficulty maintaining elevation. An x-ray of the humerus and forearm was performed, showing normal results, and a nerve conduction study was ordered to rule out nerve damage. The patient has a history of diabetes mellitus type 2, with a recent improvement in A1c from 10.7% in July to 7%. She follows up with endocrinology for diabetes management and gastroenterology for autoimmune hepatitis. The patient uses an inhaler for asthma as needed and takes alendronate weekly. Her medication regimen includes levothyroxine, mercaptopurine, oxycodone, pantoprazole, ropinirole, rosuvastatin, and Ozempic. 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 Maternal Aunt Breast cancer Brother Essential hypertension Substance abuse Pure hypercholesterolemia Other Mental health problem Social History Household Members: None Housing: House Alcohol intake: never Patient Tobacco Use Status: Former Tobacco user Tobacco use type: Cigarette Cigarettes Per Day: 7 Years Smoked: 6 e-Cigarette/Vaping Use: Never Used Second Hand Smoke Exposure: Yes Advance Directives Date on File: 07/15/20 service: No Current occupational status: disabled Current occupation: right hand Cognitive needs: Yes (Walker) Hearing needs: No Vision needs: No Female Reproductive History Menstrual Age of Menarche: 12 Questionnaire PHQ-9 Over the last 2 weeks, how often have you been bothered by any of the following problems? 1. Little interest or pleasure in doing things: more than half the days 2. Feeling down, depressed, or hopeless: several days 3. Trouble falling or staying asleep, or sleeping too much: several days 4. Feeling tired or having little energy: several days 5. Poor appetite or overeating: more than half the days 6. Feeling bad about yourself - or that you are a failure or have let yourself or your family down: not at all 7. Trouble concentrating on things, such as reading the newspaper or watching television: several days 8. Moving or speaking so slowly that other people could have noticed. Or the opposite - being so fidgety or restless that you have been moving around a lot more than usual: several days 9. Thoughts that you would be better off or of hurting yourself in some way: not at all Total score: 9 Depression Screening Interpretation: Positive Depression Screening Follow-up: Existing condition, Follow-up Visit Requested and Declines treatment Depression Screening Done: Yes 65825 - PHQ-9 Billing: Yes Source: Developed by Drs. Esdras Tang, April Mathews, Bobby Toussaint and colleagues, with an educational antonella from [employer]. Thrive Questionnaire Date Thrive assessed: 11/15/24 I am a: Patient What is your living situation today?: I have a steady place to live Within the past 12 months, did the food you bought not last and you didn't have the money to get more?: Sometimes True Within the past 12 months, did you worry whether your food would run out before you got money to buy more?: Often true Do you have trouble paying for medicines?: No Do you have trouble getting transportation to medical appointments?: Yes Do you have trouble paying your heating and electricity bill?: Yes Do you have trouble taking care of your child, family member or friend?: No Do you have trouble with day-to-day activities such as bathing, preparing meals, shopping, managing finances, etc.?: No Are you currently unemployed and looking for a job?: No Are you interested in more education?: No Please select the resources that you would like help with: None Currently or been in a relationship where the following occur: No concerns reported THRIVE Score: 4 AUDIT C Alcohol Use Questionnaire (AUDIT-C) 1. How often do you have a drink containing alcohol?: Never Total Score: 0 Score Reviewed/Action Taken: No HATTIE-7 AMB Questionnaire HATTIE-7 Date HATTIE - 7 assessed: 11/15/24 Feeling nervous, anxious, or on edge: 1 = Several days Not being able to stop or control worryin = Not at all Worrying too much about different things: 1 = Several days Trouble relaxin = More than half the days Being so restless that it is hard to sit still: 0 = Not at all Becoming easily annoyed or irritable: 0 = Not at all Feeling afraid as if something awful might happen: 1 = Several days Total HATTIE-7 score (0-4 normal; 5-9 mild; 10-14 moderate; 15-21 severe): 5 Source: Developed by Drs. Esdras Tang, April Mathews, Bobby Toussaint and colleagues, with an educational antonella from [employer]. HATTIE-7 Assessment Billing HATTIE-7 Assessment Tool: HATTIE-7 Assessment 34378 Review of Systems Const All systems reviewed & are unremarkable except as noted in HPI and below Card Denies chest pain at rest, Denies chest pain with activity, Denies edema, Denies irregular heart rhythm, Denies claudication, Denies dyspnea, Denies dyspnea on exertion, Denies orthopnea, Denies paroxysmal nocturnal dyspnea and Denies slow heart rate Resp Denies cough, Denies dyspnea and Denies dyspnea on exertion GI Denies abdominal pain, Denies change in bowel habits, Denies excessive flatus, Denies nausea and Denies vomiting Musc Reports arthralgias, Reports numbness and Reports tingling Neuro Reports numbness and Reports tingling Physical exam (Primary Care) Vital Signs: Last Vital Signs Temp 96 F L 11/15/24 16:50 Pulse 68 11/15/24 16:50 Resp 18 11/15/24 16:50 BP 124/58 L 11/15/24 16:50 Pulse Ox 97 11/15/24 16:50 Oxygen Delivery Method Room Air 11/15/24 16:50 BMI result Body Mass Index 24.9 Tobacco/Smoking Status: Tobacco use Status Tobacco use date assessed 11/15/24 11/15/24 16:57 Patient Tobacco Use Status Former Tobacco user 11/15/24 16:57 Tobacco use type Cigarette 11/15/24 16:57 e-Cigarette/Vaping Use Never Used 11/15/24 16:57 PHQ-9: PHQ-9 Score PHQ-9: Total score 9 11/15/24 17:21 Depression Screening Interpretation: Positive Depression Screening Follow-up: Existing condition, Follow-up Visit Requested and Declines treatment Thrive Assessment: Date of Thrive Assessment Date Thrive assessed 11/15/24 11/15/24 16:57 Currently or been in a relationship where the following occur: No concerns reported Const General: tired appearing Resp Effort & Inspection: normal respiratory effort Auscultation: clear to auscultation bilaterally Cardio Jugular venous distension: no JVD Rate: regular rate Rhythm: regular rhythm Heart sounds: S1 normal heart sound present and S2 normal heart sound present Extrem Left upper extremity: shoulder/upper arm (left arm drops after elevate it for 5 seconds) Details: abnormal ROM and elbow/forearm Details: abnormal ROM Results AMB Hemoglobin A1c AMB Hemoglobin A1c 7.0 % Last Edit by LINDA Sharp on 11/15/24 17:21 Results Reviewed Results Reviewed: Laboratory Last Values Hgb A1c (Clinic) 7.0 % (4.0-6.0) H 11/15/24 17:20 Coding Level of Care Code Est Pt Level 4 (92661) Complex EM visit Add On G2211 Diagnoses Left arm weakness R29.898 Left hand weakness R29.898 Type 2 diabetes mellitus with hyperglycemia, with long-term current use of insulin E11.65; Z79.4 Diabetes mellitus ornamental iron erector insulin use: with ornamental iron erector use Diabetes mellitus complication status: with hyperglycemia Hyperlipidemia LDL goal <70 E78.5 Autoimmune thyroiditis E06.3 Autoimmune hepatitis K75.4 Additional Codes HATTIE-7 Assessment Billing - HATTIE-7 Assessment Tool: HATTIE-7 Assessment 79496 ([id number]) PHQ-9 - 82425 - PHQ-9 Billing: Yes ([id number]) Time Spent (min) 24 Assessment & Plan Assessment & Plan (1) Left arm weakness: Code(s): R29.898 - Other symptoms and signs involving the musculoskeletal system Category: Medical (2) Left hand weakness: Code(s): R29.898 - Other symptoms and signs involving the musculoskeletal system Category: Medical (3) Type 2 diabetes mellitus: Code(s): E11.9 - Type 2 diabetes mellitus without complications Category: Medical Qualifiers: Diabetes mellitus long-term insulin use: with ornamental iron erector use Diabetes mellitus complication status: with hyperglycemia Qualified Code(s): E11.65 - Type 2 diabetes mellitus with hyperglycemia; Z79.4 - leather stamper (current) use of insulin (4) Hyperlipidemia LDL goal <70: Code(s): E78.5 - Hyperlipidemia, unspecified Category: Medical (5) Autoimmune thyroiditis: Code(s): E06.3 - Autoimmune thyroiditis Category: Medical (6) Autoimmune hepatitis: Code(s): K75.4 - Autoimmune hepatitis Category: Medical Plan The patient will continue her current medication regimen for diabetes, autoimmune hepatitis, hypothyroidism, hypertension, and hyperlipidemia. A nerve conduction study has been ordered to assess for potential nerve damage related to the left arm symptoms. Physical therapy is recommended for the shoulder, and occupational therapy for the left hand to address weakness and improve function. The patient is advised to follow up with endocrinology for diabetes management and gastroenterology for autoimmune hepatitis. Orders: Orders NE electromyogram (EMG) 11/15/24 R20.2 - Paresthesia of skin PT Evaluation and Treatment 11/15/24 R29.898 - Other symptoms and signs involving the musculoskeletal system OT Evaluation and Treatment 11/15/24 R29.898 - Other symptoms and signs involving the musculoskeletal system AMB Hemoglobin A1c 11/15/24 Z13.9 - Encounter for screening, unspecified NE nerve conduction velocity 11/15/24 R20.2 - Paresthesia of skin
[2024-11-15 16:50] VITALS: BP 124/58; PULSE 68; RESP 18; TEMP 35.5; O2SAT 97; BMI 24.9
== END 2024-11-15 17:18 | disposition home or self-care (01) ==
LOC: HO.HMCH 16:11
PROVIDERS: PCP Internal Medicine; Visit Provider Internal Medicine
DX: Z13.9 Encounter for screening, unspecified (principal)

== ENCOUNTER → 2024-11-15 16:11 | Outpatient (BNVA) | payer MEDICARE, MEDICAID, SELFPAY | PROVIDERS: PCP Internal Medicine; Visit Provider Internal Medicine | DX: M79.602 Pain in left arm (principal); R53.1 Weakness; J45.909 Unspecified asthma, uncomplicated; R29.898 Other symptoms and signs involving the musculoskeletal system; E11.65 Type 2 diabetes mellitus with hyperglycemia; E78.5 Hyperlipidemia, unspecified; E06.3 Autoimmune thyroiditis; K75.4 Autoimmune hepatitis; Z79.4 Long term (current) use of insulin; Z79.899 Other long term (current) drug therapy | CPT/HCPCS: 83036; 96127; 99212 ==

== ENCOUNTER 2024-11-28 10:19 | Outpatient (REF) | payer MEDICARE, MEDICAID, SELFPAY ==
[2024-11-28 11:32] LABS: Alanine Aminotransferase 34 U/L (0-31); Albumin Level 4.2 g/dL (3.5-5.0); Alkaline Phosphatase 101 U/L (39-117); Anion Gap 8 (12-20); Aspartate Amino Transferase 24 U/L (5-31); Blood Urea Nitrogen 12 mg/dL (9-16); Calcium 9.3 mg/dL (8.4-10.2); Carbon Dioxide 28 mmol/L (22-29); Chloride 108 mmol/L (96-108); Cholesterol 134 mg/dL (<200); Estimated Glomerular Filt Rate > 60; HDL Cholesterol 46 mg/dL (>40); Potassium 4.2 mmol/L (3.3-5.1); Sodium 140 mmol/L (135-145); Total Protein 7.8 g/dL (6.5-8.0); Triglycerides 54 mg/dL (<150)
[2024-11-28 11:47] LABS: Thyroid Stimulating Hormone 0.06 uIU/mL (0.32-4.0)
--- OUTSIDE RECORDS SUMMARY | 2024-11-28 12:04 | XMS_ITS | Encounter Summary ---
Author Organization [facility] Address [address] [place] [address] Care Team Providers Care Drying Can Worker Name Role Phone Becca Sprague Primary Care Provider [phone] Encounter Details Date Type Department Care Team (Late st Contact Info) Description 10/09/2024 Orders Only [facility] Interventional Radiology [address] [place] [id number] Loida Marshall, PA [address] [place] [address] Social History Tobacco Use Types Packs/Day Years [...] as of this encounter Plan of Treatment Not on file documented as of this encounter Visit Diagnoses Not on filedocumented in this encounter Care Teams Drying Can Worker Relationship Specialty Start Date End Date Becca Sprague [address] [place] [address] [place] [address] PCP - General Internal Medicine 08/16/19 documented as of this encounter
--- OUTSIDE RECORDS SUMMARY | 2024-11-28 12:04 | XMS_ITS | Clinical Summary ---
Author Organization [facility] Address [address] [place] [address] Care Team Providers Care Sweatband Cutting Machine Operator Name Role Phone Becca Sprague Primary Care Provider [phone] Allergies Active Allergy Reactions Criticality Noted Date [...] 2 times a day. 60 tablet 1 06/04/19 21 Active Additional Information Patient not taking.Reported on 10/09/2024 nortriptyline (PAMELOR) 10 mg capsule TAKE 1 CAPSULE BY MOUTH EVERY DAY IN THE EVENING 30 capsule 2 06/26/19 21 Active ondansetron (ZOFRAN) 8 mg tablet SMARTSI Tablet(s) By Mouth Daily PRN 08/16/19 24 Active fluconazole (DIFLUCAN) 150 mg tablet SMARTSI Tablet(s) By Mouth Every 3 Days 06/28/19 24 Active mercaptopurine (PURINETHOL) 50 mg tablet SMARTSI Tablet(s) By Mouth Daily 09/08/19 24 Active rOPINIRole (REQUIP) 0.25 mg tablet SMARTSI Tablet(s) By Mouth Every Night 08/16/19 24 Active Freestyle Lite test strips DIRECTED 3 TIMES A DAY 08/16/19 24 Active alendronate (FOSAMAX) 70 mg tablet SMARTSI Tablet(s) By Mouth Once a Week 08/16/19 24 Active Freestyle lancets 28 gauge USE 1 LANCET THREE TIMES A DAY 02/17/20 23 Active folic acid (FOLVITE) 1 mg tablet SMARTSI Tablet(s) By Mouth Daily 05/20/19 24 Active BD Alivia 2nd Gen Pen Needle 4 mm x 32 g DIRECTED 4 TIMES A DAY 10/13/19 23 Active Tresiba FlexTouch U-200 200 unit/mL (3 mL) insulin pen SMARTSI Unit(s) SUB-Q 07/31/19 24 Active ibuprofen (MOTRIN) 600 mg tablet SMARTSI Tablet(s) By Mouth 3 Times Daily 07/12/19 24 Active oxyCODONE IR (ROXICODONE) 10 mg tablet SMARTSI Tablet(s) By Mouth Every 8 Hours PRN 08/16/19 24 Active omeprazole (PriLOSEC) 20 mg capsule SMARTSI Capsule(s) By Mouth Daily 02/15/20 23 Active levothyroxine (SYNTHROID, LEVOTHROID) 200 mcg tablet SMARTSI Tablet(s) By Mouth Daily 08/13/19 24 Active levothyroxine (SYNTHROID, LEVOTHROID) 50 mcg tablet SMARTSI Tablet(s) By Mouth Daily 06/22/19 24 Active cholecalciferol (VITAMIN D3) 2,000 unit capsule SMARTSI Capsule(s) By Mouth Daily 08/13/19 24 Active rosuvastatin (CRESTOR) 10 mg tablet SMARTSI Tablet(s) By Mouth Daily 08/12/19 25 Active metroNIDAZOLE (FLAGYL) 250 mg tablet SMARTSI Tablet(s) By Mouth 4 Times Daily 07/03/19 25 Active tetracycline 500 mg capsule SMARTSI Capsule(s) By Mouth 4 Times Daily 07/04/19 25 Active Jardiance 10 mg SMARTSI Tablet(s) By Mouth Daily Active Ozempic 0.25 mg or 0.5 mg (2 mg/3 mL) SMARTSI.73 Milliliter(s) SUB-Q Once a Week Active ondansetron (ZOFRAN ODT) 4 mg disintegrating tablet SMARTSI Tablet(s) By Mouth Every 8 Hours PRN 10/06/19 25 Active Active Problems No known active problems Encounters Date Type Department Care Team Description 11/14/2024 Orders Only [facility] Liver Transplant Services [address] [place] [address] Amber Islas MD 11/08/2024 Telephone [facility] Transplant Department [address] [place] [address] [facility] 11/07/2024 Telephone [facility] Transplant Department [address] [place] [address] [facility] 10/12/2024 Orders Only [facility] Interventional Radiology [address] [place] [address] Loida Marshall PA Autoimmune hepatitis (HCC) (Primary Dx) 10/09/2024 11:00 AM EDT Follow-Up [facility] Transplant Services [address] [place] [address] Amber Islas MD Chronic autoimmune hepatitis (HCC) (Primary Dx) 10/09/2024 Orders Only [facility] Interventional Radiology [address] [place] [address] Loida Marshall PA from Last 3 Months Social History Tobacco [...] Sign Reading Time Taken Comments Blood Pressure 109/63 10/09/2024 10:25 AM EDT Pulse 86 10/09/2024 10:25 AM EDT Temperature 36.6 C (97.8 F) 10/09/2024 10:25 AM EDT Respiratory Rate 18 10/09/2024 10:25 AM EDT Oxygen Saturation 98% 10/09/2024 10:25 AM EDT Inhaled Oxygen Concentration - - Weight 79 kg (174 lb 2.6 oz) 10/09/2024 10:25 AM EDT Height 170.2 cm (5' 7 ) 06/03/2020 12:27 PM EST Body Mass Index 27.28 06/03/2020 12:27 PM EST Plan of Treatment Health Maintenance Due Date Last Done Comments Cervical Cancer Screening 1965 Cologuard 1965 FOBT / Fit Test 1965 HIV Screening 1965 HPV and Pap Smear 1965 Pap Smear 1965 Sigmoidoscopy 1965 Pneumococcal Vaccine: 50+ Ye ars (1 of 2 - PCV) 1984 Zoster Vaccines (1 of 2) 06/05/2015 Mammogram 07/26/2018 07/26/2016, 04/2 11/2015, 05/27/2014, Additional history exists Hepatitis B Vaccines (3 of 3 - Hep B Twinrix 3-dose series) 12/01/2022 07/01/2022, 12/31/2021 Alcohol/Substance Use Screening 03/28/2024 Depression Screening and Follow-Up 03/28/2024 Social Drivers of Health Jessica ual Screening 03/28/2024 COVID-19 Vaccine (3 - 2024-2 6 season) 2024 09/13/2020, 08/23/2020 Influenza Vaccine (#1) 2024 2, 01/15/2021, 02/12/2020, Additional history exists Colon Cancer Screening 10/20/2025 Colonoscopy 10/20/2025 10/21/2015 DTaP,Tdap,and Td Vaccines (2 - Td or Tdap) 05/19/2026 05/19/2016 RSV Vaccine (60+ years old a nd patients) (1 - 1-dose 75+ series) 2040 Hepatitis C Screening Completed 09/15/2023 Procedures * Due to [place] Epicrisis law, this organization might not be sharing negative HIV tests. Procedure Name Priority Date/Time Associated Diagnosis Comments CBC AUTO DIFFERENTIAL Routine 10/09/2024 11:53 AM EDT Chronic autoimmune hepatitis (HCC) COMPREHENSIVE METABOLIC PANEL Routine 10/09/2024 11:53 AM EDT Chronic autoimmune hepatitis (HCC) VITAMIN A (RETINOL) Routine 10/09/2024 1 1:53 AM EDT Chronic autoimmune hepatitis (HCC) VITAMIN D, 25-HYDROXY, TOTAL, IMMUNOASSAY Routine 10/09/2024 11:53 AM EDT Chronic autoimmune hepatitis (HCC) HEPATITIS C ANTIBODY W/REFLEX TO HCV RNA, QUANTITATIVE PCR Routine 09/15/2023 3:48 PM EDT Chronic autoimmune hepatitis from Last 3 Months or Most Recently Relevant to Health Maintenance Results * Due to [place] Epicrisis law, this organization might not be sharing negative HIV tests. * (ABNORMAL) CBC Auto Differential (10/09/2024 11:53 AM EDT) WBC 3.4(L) 3.8 - 10.8 10*3/uL 10/09/2024 12:08 PM EDT [facility] RBC 3.91 3.80 - 5.10 10*6/uL 10/09/2024 12:08 PM EDT [facility] Hemoglobin 11.6(L) 11.7 - 15.5 g/dL 10/09/2024 12:08 PM EDT [facility] Hematocrit 34.4(L) 35.0 - 45.0 % 10/09/2024 12:08 PM EDT [facility] MCV 88.0 80.0 - 100.0 fL 10/09/2024 12:08 PM EDT [facility] MCH 29.7 27.0 - 33.0 pg 10/09/2024 12:08 PM EDT [facility] MCHC 33.7 32.0 - 36.0 g/dL 10/09/2024 12:08 PM EDT [facility] RDW 12.8 11.0 - 15.0 % 10/09/2024 12:08 PM EDT [facility] Platelets 201 140 - 400 10*3/uL 10/09/2024 12:08 PM EDT [facility] MPV 8.8 7.5 - 12.5 fL 10/09/2024 12:08 PM EDT [facility] Neutrophil % 48.3 % 10/09/2024 12:08 PM EDT [facility] Immature Grans % 0.0 0.0 - 0.9 % 10/09/2024 12:08 PM EDT [facility] Lymphocyte % 44.4 % 10/09/2024 12:08 PM EDT [facility] Monocyte % 6.1 % 10/09/2024 12:08 PM EDT [facility] Eosinophil % 0.6 % 10/09/2024 12:08 PM EDT [facility] Basophil % 0.6 % 10/09/2024 12:08 PM EDT [facility] Neutrophil # 1.65 1.50 - 7.80 10*3/uL 10/09/2024 12:08 PM EDT [facility] Immature Grans # <0.03 <=0.03 10*3/uL 10/09/2024 12:08 PM EDT [facility] Lymphocyte # 1.50 0.85 - 3.90 10*3/uL 10/09/2024 12:08 PM EDT [facility] Monocyte # 0.20 0.20 - 0.95 10*3/uL 10/09/2024 12:08 PM EDT [facility] Eosinophil # <0.03 0.02 - 0.50 10*3/uL 10/09/2024 12:08 PM EDT [facility] Basophil # <0.03 0.00 - 0.20 10*3/uL 10/09/2024 12:08 PM EDT [facility] nRBC % 0.0 /100 WBCs 10/09/2024 12:08 PM EDT [facility] nRBC # <0.01 <0.01 10*3/uL 10/09/2024 12:08 PM EDT [facility] Blood Structure of peripheral vein / Unknown Venipuncture / Unknown 10/09/2024 11:53 AM EDT 10/09/2024 12:02 PM EDT us Amber Islas MD LAB BLOOD ORDERABLES Final Resul t [facility] [address] [place] [address], * (ABNORMAL) Vitamin A (Retinol) (10/09/2024 11:53 AM EDT) Vitamin A (Retinol) 30(L) 38 - 98 mcg/dL 10/12/2024 3:20 PM EDT [facility] ([facility]) Comment: Vitamin supplementation within 24 hours prior to blood draw may affect the accuracy of the results. This test was developed and its analytical performance characteristics have been determined by [employer] [place], [place]. It has not been cleared or approved by the U.S. Food and Drug Administration. This assay has been validated pursuant to the CLIA regulations and is used for clinical purposes. Blood Structure of peripheral vein / Unknown Venipuncture / Unknown 10/09/2024 11:53 AM EDT 10/09/2024 11:59 AM EDT [facility] ([facility]) - 10/12/2024 3:20 PM EDT [facility] Received Date:[id number] Amber Islas MD LAB BLOOD ORDERABLES Final Resul t [facility] ([facility]) [address] [place], [place] , [place] * (ABNORMAL) Vitamin D, 25-Hydroxy, Total, Immunoassay (10/09/2024 11:53 AM EDT) [facility] Signature Calcidiol+ercalc idiol 25(L) 30 - 100 ng/mL 10/09/2024 10:36 PM EDT [facility] Comment: Vitamin D Status 25-OH Vitamin D: Deficiency: <20 ng/mL Insufficiency: 20 - 29 ng/mL Optimal: > or = 30 ng/mL For 25-OH Vitamin D testing on patients on D2-supplementation and patients for whom quantitation of D2 and D3 fractions is required, the QuestAssureD(TM) 25-OH VIT D, (D2,D3), LC/MS/MS is recommended: order code [id number] (patients >2yrs). See Note 1 Note 1 For additional information, please refer to http://education.VANDOLAY.Skilljar/faq/VBG338 (This link is being provided for informational/ educational purposes only.) Blood Structure of peripheral vein / Unknown Venipuncture / Unknown 10/09/2024 11:53 AM EDT 10/09/2024 12:01 PM EDT [facility] - 10/09/2024 10:36 PM EDT [facility] Received Date:[id number] us Amber Islas MD LAB BLOOD ORDERABLES Final Resul t [facility] [address] [place] [address] [address]rd Floor, [place] [address], [place] [phone] [facility] [address] [facility] 3rd Floor, [place] [address], [place] [phone] * (ABNORMAL) Comprehensive Metabolic Panel (10/09/2024 11:53 AM EDT) NA 138 135 - 145 mmol/L 10/09/2024 12:41 PM EDT [facility] K 4.0 3.5 - 5.3 mmol/L 10/09/2024 12:41 PM EDT [facility] Cl 103 98 - 107 mmol/L 10/09/2024 12:41 PM EDT [facility] CO2 27 22 - 32 mmol/L 10/09/2024 12:41 PM EDT [facility] Anion Gap 8 5 - 15 10/09/2024 12:41 PM EDT [facility] Glucose 157(H) 65 - 99 mg/dL 10/09/2024 12:41 PM EDT [facility] Creatinine 0.74 0.50 - 1.20 mg/dL 10/09/2024 12:41 PM EDT [facility] Calcium 9.3 8.6 - 10.5 mg/dL 10/09/2024 12:41 PM EDT [facility] Total Protein 8.1(H) 6.0 - 8.0 g/dL 10/09/2024 12:41 PM EDT [facility] Albumin 4.2 3.5 - 5.2 g/dL 10/09/2024 12:41 PM EDT [facility] Bilirubin, Total 0.4 0.2 - 1.2 mg/dL 10/09/2024 12:41 PM EDT [facility] Alkaline Phosphatase 97 35 - 129 U/L 10/09/2024 12:41 PM EDT [facility] AST 20 10 - 40 U/L 10/09/2024 12:41 PM EDT [facility] ALT 17 10 - 40 U/L 10/09/2024 12:41 PM EDT [facility] BUN 19 7 - 23 mg/dL 10/09/2024 12:41 PM EDT [facility] eGFR >90 >=60 mL/min/1. 73m2 10/09/2024 12:41 PM EDT [facility] Comment:The estimated glomer ular filtration rate (eGFR) is calculated using a new formula developed by the NKF-ASN task force to eliminate race-based correction factors. The new formula uses serum/plasma creatinine, age, and gender to determine eGFR. A value below 60mls/min might indicate kidney disease and will be flagged. For additional information, see Henley et al, Am J Kidney Dis. 2021;79(2):268- 288, A Unifying Approach for GFR estimation: Recommendations of the NKF-ASN Task Force on Reassessing the Inclusion of Race in Diagnosing Kidney Disease . Globulin, Total 3.9 2.1 - 4.2 g/dL 10/09/2024 12:41 PM EDT [facility] A/G Ratio 1.1(L) 1.5 - 3.0 10/09/2024 12:41 PM EDT [facility] Blood Structure of peripheral vein / Unknown Venipuncture / Unknown 10/09/2024 11:53 AM EDT 10/09/2024 12:10 PM EDT us Amber Islas MD LAB BLOOD ORDERABLES Final Resul t [facility] [address] [place] [address], * Hepatitis C Antibody w/Reflex to PCR (09/15/2023 3:48 PM EDT) Hepatitis C Antibody NON-REACT MICHEAL NON-REACT MICHEAL 09/15/2023 10:45 PM EDT [facility] Comment: HCV antibody was non-reactive. There is no laboratory evidence of HCV infection. In most cases, no further action is required. However, if recent HCV exposure is suspected, a test for HCV RNA (test code 06082) is suggested. For additional information please refer to http://education.Tellja/faq/GOT04c5 (This link is being provided for informational/ educational purposes only.) Blood Structure of peripheral vein / Unknown Venipuncture / Unknown 09/15/2023 3:48 PM EDT 09/15/2023 3:48 PM EDT Narrative [facility] - 09/15/2023 10:45 PM EDT [facility] Received Date: Amber Islas MD LAB BLOOD ORDERABLES Final Resul t [facility] [address] [facility] 3rd Floor, [place] [address], [facility] [address] [facility] 3rd Floor, [place] [address], from Last 3 Months or Most Recently Relevant to Health Maintenance Insurance [facility] [place] [address] Advance Directives Healthcare Agents on File Name Relationship Healthcare Agent Relationsvt p Communication Milena Avila Daughter Alternate Health Care Age nt Care Teams Sweatband Cutting Machine Operator Relationship Specialty Start Date End Date Becca Sprague [address] [place] [address] [place] [address] PCP - General Internal Medicine 08/16/19
--- OUTSIDE RECORDS SUMMARY | 2024-11-28 12:08 | XMS_ITS | Clinical Summary ---
Author Organization [employer] Address [address] [facility] [address]t [place] [address] Care Team Providers Care Continuous Miner Operator Helper Name Role Phone Unavailable Primary Care Provider [...] Description 11/28/2024 2:00 PM EDT Office Visit [facility] ADULT DENTAL [address] [place] [address] Ezra Cortezsa Health Maintenance Due Date Last [...] B Twinrix 3-dose series) 12/01/2022 07/01/2022, 12/31/2021 Dental Oral Exam 07/30/2024 01/30/2024, 01/05/2023 Dental Prophylaxis 07/30/2024 01/30/2024 Dental X-Ray: [facility] 11/03/2024 11/03/2023, 01/05 COVID-19 Vaccine ( season) 2024 09/13/2020, 08/23/2020 Influenza Vaccine (#1) 2024 , 01/15/2021, 02/12/2020, [...] Most Recently Relevant to Health Maintenance Insurance [facility] MEDICAID STAND ADULT
[2024-11-28 12:27] LABS: Microalbum/Creatinine Ratio Ur 17.2 ug/mg cr (<30)
== END 2024-11-28 10:20 | disposition home or self-care (01) ==
LOC: HO.LAB 10:19
PROVIDERS: PCP Internal Medicine; Visit Provider Internal Medicine
DX: E11.65 Type 2 diabetes mellitus with hyperglycemia (principal); R80.9 Proteinuria, unspecified; E03.9 Hypothyroidism, unspecified; E55.9 Vitamin D deficiency, unspecified; E78.5 Hyperlipidemia, unspecified; Z79.4 Long term (current) use of insulin
CPT/HCPCS: 36415; 80053; 80061; 82043; 82306; 82570; 84443

== ENCOUNTER → 2024-11-29 10:37 | Outpatient (REF) | payer MEDICARE, MEDICAID, SELFPAY ==
--- NOTE | 2024-11-29 10:39 | CA_ITS ---
Transthoracic Echocardiogram Patient (Last, First, Middle): Cece Conley, Gender: F Date of : 1965 Age: 59 Procedure Date: 11/29/2024 Procedure Type: Transthoracic Echocardiogram Location: OP Height: 170.18 cm Weight: 72.58 kg BSA: 1.84 m2 Heart Rate: bpm BP: 124 / 58 mmHg Certified Tumor Registrar: LUIS FERNANDO/KIEL Referring MD: Becca Newberry MD Plaster Form Maker: Quan Alonzo MD Symptoms: R06.09 - Other forms of dyspnea Study Quality: Adequate ECG Rhythm: Sinus Conclusions: - Mild dilatation of ascending aorta at 3.7 cm otherwise normal study Findings Left Ventricle Normal left ventricular size, thickness, and systolic function. The visually estimated ejection fraction is between 60-65%. Spectral Doppler is indicative of a normal filling pattern. Right Ventricle Normal right ventricular cavity size and systolic function. Atria Both atria are normal in size. There is no evidence of interatrial shunt. Aortic Valve Normal aortic valve structure and function. There is no aortic valve stenosis. There is no aortic valve regurgitation. Mitral Valve Normal mitral valve structure and function. There is trace mitral valve regurgitation. There is no mitral valve stenosis. Pulmonic Valve The pulmonic valve is likely normal. Tricuspid Valve Normal tricuspid valve structure. There is trace tricuspid valve regurgitation. The right ventricular systolic pressure is normal. The right ventricular systolic pressure is 28 mmHg. Normal right atrial pressure. There is no evidence of pulmonary hypertension. Great Vessels The pulmonary artery was not well visualized. There is mild dilatation of the ascending aorta measuring 3.70 cm. Venous The inferior vena cava is normal in size and collapses greater than 50% with inspiration. Pericardium/Pleural There is no evidence of pericardial effusion. Measurements 2D Linear Measurements IVSd: 0.71 0.6-0.9/0.6-1.0 cm LVIDd: 4.88 3.9-5.3/4.2-5.9 cm LVIDd Index: 2.65 2.4-3.2/2.2-3.1 cm/m2 LVIDs: 3.07 2.0-3.6 cm LVPWd: 0.96 0.7-1.1 cm LA Diam: 3.10 2.7-3.8/3.0-4.0 cm LAIDs Index: 1.68 1.5-2.3 cm/m2 LV Mass: 172.19 67-162/88-224 g LV Mass Index: 93.58 43-95/49-115 g/m2 LVOT Diam: 2.00 3.0+(-)1.3 cm 2D Systolic Function EF 4C: 59.60 >55% EF 2C: 59.50 >55% EF BiP: 60.20 >55% Mitral Valve MV Pk E: 0.84 MV PK A: 0.82 MV Decel Time: 247.00 E/A: 1.00 E'Lateral: 10.30 E'Medial: 8.27 E/E' Med: 10.20 E/E' Lat: 8.20 PHT: 72.00 MVA PHT: 3.06 Decel Brazos: 3.40 Aortic Valve AoV Pk Raimundo: 1.49 AoV Mn Raimundo: 1.04 AoV VTI: 0.32 AoV Pk Grad: 9.00 Aov Mn Grad: 5.00 ELSA Cont.VTI: 2.44 LVOT LVOT Pk Raimundo: 1.19 LVOT Mn Raimundo: 0.80 LVOT VTI: 0.25 LVOT Pk Grad: 6.00 LVOT Mn Grad: 3.00 LVOT Diam: 2.00 LVOT Area: 3.14 Diastolic Function MV Pk E: 0.84 MV Pk A: 0.82 E/A: 1.00 E'Medial: 8.27 E/E' Med: 10.20 E' Laterial: 10.30 E/E' Lat: 8.20 Right Ventricle TAPSE (mm): 25.60 TVS' Raimundo: 13.70 Tricuspid Valve TR Pk Raimundo: 2.48 TR Pk Grad: 25.00 RA Press: 3.00 RVSP: 28.00 Great Vessels Aorta Sinus of Valsalva: 3.40 2.0-3.5 cm Ao Asc: 3.70 2.1-3.4 cm Ao Arch: 3.20 Pulmonary Veins Pulm Vein S/D 1.50 Pulmonary Valve PV Pk Raimundo: 1.07 Peak PV Grad: 5.00 Updated in Other Vendor System with Status of Final Quan Alonzo MD electronically signed on 11/29/2024 2:40:00 PM with status of Final
--- OUTSIDE RECORDS SUMMARY | 2024-11-29 12:08 | XMS_ITS | Clinical Summary ---
Author Organization [employer] Address [address] [facility] 7t [place] [address] Care Team Providers Care Hourly Sales Staff Name Role Phone Unavailable Primary Care Provider [...] Care Team (Late st Contact Info) Description 01/03/2025 2:00 PM EDT Office Visit [facility] ADULT DENTAL [address] [place] [address] Ezra Cortezsa Health Maintenance Due Date Last [...] Most Recently Relevant to Health Maintenance Insurance [facility] MEDICAID STAND ADULT
--- OUTSIDE RECORDS SUMMARY | 2024-11-29 12:08 | XMS_ITS | Encounter Summary ---
Author Organization [facility] Address [address] [place] [address] Care Team Providers Care Mold Maker Apprentice Name Role Phone Becca Sprague Primary Care Provider [phone] Encounter Details Date Type Department Care Team (Late st Contact Info) Description 10/09/2024 Orders Only [facility] Interventional Radiology [address] [place] [address] Loida Marshall, PA [address] [place] [address] Social History Tobacco Use Types Packs/Day Years [...] on filedocumented in this encounter Care Teams Mold Maker Apprentice Relationship Specialty Start Date End Date Becca Sprague [address] [place] [address] [place] [address] PCP - General Internal Medicine 08/16/19 documented as of this encounter
--- OUTSIDE RECORDS SUMMARY | 2024-11-29 12:08 | XMS_ITS | Patient Health Record ---
Author Organization [facility] Address [address] [place] [address] Care Team Providers Care Pellet Preparation Operator Name Role Phone Becca Sprague Primary Care Provider UnavailEsdras Cristobal Unavailable [phone] Allergies Allergen (clinical drug ingredient) Drug/Non Drug [...] Status Risk Notes Problem Irritable bowel syndrome (74695615) Irritable bowel syndrome (564.1) Active confirmed Problem Dysphagia (41700917) Dysphagia (787.20) Active confirmed Problem Gastroesophageal reflux disease (607872041) GERD (gastroesophag eal reflux disease) (530.81) Active confirmed Problem Esophageal spasm (38367103) Esophageal spasm (530.5) Active confirmed Problem Irritable bowel syndrome (08993435) IBS (irritable bowel syndrome) (564.1) Active confirmed Plan Of Treatment No Information Insurance Providers Payer Name Payer Address Payer Phone Subscriber Number Group Number Insured Name Patient Relationship to Insured Coverage Start Date Coverage End Date MEDICARE OF [place] [address] [place] [address] [id number] DIEGO FORD Self - patient is the insured MEDICAID OF [facility] [address] [place] [phone] [id number] DIEGO FORD Self - patient is the [...]
--- OUTSIDE RECORDS SUMMARY | 2024-11-29 12:08 | XMS_ITS | Clinical Summary ---
Author Organization [facility] Address [address] [place] [address] Care Team Providers Care Butter Melter Name Role Phone Becca Sprague Primary Care Provider [phone] Allergies Active Allergy Reactions Criticality Noted Date [...] Department Care Team Description 11/14/2024 Orders Only [facility] [address] [place] [address] [phone] Amber Islas MD 11/08/2024 Telephone [facility] Transplant Department [address] [place] [address] 35749 [facility] 11/07/2024 Telephone [facility] Transplant Department [address] [place] [address] [id number] [facility] 10/12/2024 Orders Only [facility] Interventional Radiology [address] [place] [address] [phone] Loida Marshall PA Autoimmune hepatitis (HCC) (Primary Dx) 10/09/2024 11:00 AM EDT Follow-Up [facility] [address] [place] [address] [phone] Amber Islas MD Chronic autoimmune hepatitis (HCC) (Primary Dx) 10/09/2024 Orders Only [facility] Interventional Radiology [address] [place] [address] [phone] Loida Marshall PA from Last 3 Months [...] Screening Completed 09/15/2023 Procedures * Due to [place] [employer] law, this organization might not be sharing [...] Health Maintenance Results * Due to [place] [employer] law, this organization might not be sharing negative HIV tests. * (ABNORMAL) CBC Auto Differential (10/09/2024 11:53 AM EDT) WBC 3.4(L) 3.8 - 10.8 10*3/uL 10/09/2024 12:08 PM EDT [facility] RBC 3.91 3.80 - 5.10 10*6/uL 10/09/2024 12:08 PM EDT [facility] Hemoglobin 11.6(L) 11.7 - 15.5 g/dL 10/09/2024 12:08 PM EDT [facility] Hematocrit 34.4(L) 35.0 - 45.0 % 10/09/2024 12:08 PM EDT [facility] MCV 88.0 80.0 - 100.0 fL 10/09/2024 12:08 PM EDT [facility] MCH 29.7 27.0 - 33.0 pg 10/09/2024 12:08 PM EDT [facility] MCHC 33.7 32.0 - 36.0 g/dL 10/09/2024 12:08 PM EDT [facility] RDW 12.8 11.0 - 15.0 % 10/09/2024 12:08 PM EDT [facility] Platelets 201 140 - 400 10*3/uL 10/09/2024 12:08 PM EDT [facility] MPV 8.8 7.5 - 12.5 fL 10/09/2024 12:08 PM EDT [facility] Neutrophil % 48.3 % 10/09/2024 12:08 PM EDT [facility] Immature Grans % 0.0 0.0 - 0.9 % 10/09/2024 12:08 PM EDT [facility] Lymphocyte % 44.4 % 10/09/2024 12:08 PM EDT [facility] Monocyte % 6.1 % 10/09/2024 12:08 PM EDT [facility] Eosinophil % 0.6 % 10/09/2024 12:08 PM EDT [facility] Basophil % 0.6 % 10/09/2024 12:08 PM EDT [facility] Neutrophil # 1.65 1.50 - 7.80 10*3/uL 10/09/2024 12:08 PM EDT [facility] Immature Grans # <0.03 <=0.03 10*3/uL 10/09/2024 12:08 PM EDT [facility] Lymphocyte # 1.50 0.85 - 3.90 10*3/uL 10/09/2024 12:08 PM EDT [facility] Monocyte # 0.20 0.20 - 0.95 10*3/uL 10/09/2024 12:[address] [facility] Eosinophil # <0.03 0.02 - 0.50 10*3/uL 10/09/2024 12:[address] [facility] Basophil # <0.03 0.00 - 0.20 10*3/uL 10/09/2024 12:08 PM EDT [facility] nRBC % 0.0 /100 WBCs 10/09/2024 12:[address] [facility] nRBC # <0.01 <0.01 10*3/uL 10/09/2024 12:[address] [facility] Blood Structure of peripheral vein / Unknown Venipuncture / Unknown 10/09/2024 11:53 AM EDT 10/09/2024 12:02 PM EDT us Amber Islas MD LAB BLOOD ORDERABLES Final Resul t [facility] [address] [place] [address], * (ABNORMAL) Vitamin A (Retinol) (10/09/2024 11:53 AM EDT) Vitamin A (Retinol) 30(L) 38 - 98 mcg/dL 10/12/2024 3:20 PM EDT [facility] Comment: Vitamin supplementation within 24 hours prior to blood draw may affect the accuracy of the results. This test was developed and its analytical performance characteristics have been determined by [employer], [place]. It has not been cleared or approved by the U.S. Food and Drug Administration. This assay has been validated pursuant to the CLIA regulations and is used for clinical purposes. Blood Structure of peripheral vein / Unknown Venipuncture / Unknown 10/09/2024 11:53 AM EDT 10/09/2024 11:59 AM EDT [facility] - 10/12/2024 3:20 PM EDT [facility] Received Date:[id number] Amber Islas MD LAB BLOOD ORDERABLES Final Resul t [facility]) [address] [place], [place] , [place] * (ABNORMAL) Vitamin D, 25-Hydroxy, Total, Immunoassay (10/09/2024 11:53 AM EDT) [facility] Signature Calcidiol+ercalc idiol 25(L) 30 - 100 ng/mL 10/09/2024 10:36 PM EDT [facility] Comment: Vitamin D Status 25-OH Vitamin D: Deficiency: <20 ng/mL Insufficiency: 20 - 29 ng/mL Optimal: > or = 30 ng/mL For 25-OH Vitamin D testing on patients on D2-supplementation and patients for whom quantitation of D2 and D3 fractions is required, the QuestAssureD(TM) 25-OH VIT D, (D2,D3), LC/MS/MS is recommended: order code 16052 (patients >2yrs). See Note 1 Note 1 For additional information, please refer to http://education.Volley.Buru Buru/faq/FME326 (This link is being provided for informational/ educational purposes only.) Blood Structure of peripheral vein / Unknown Venipuncture / Unknown 10/09/2024 11:53 AM EDT 10/09/2024 12:01 PM EDT [facility] - 10/09/2024 10:36 PM EDT [facility] Received Date:[id number] us Amber Islas MD LAB BLOOD ORDERABLES Final Resul t [facility] [address] [place] [address] [address] Floor, [place] [address], [place] [phone] [facility] [address] [facility] 3rd Floor, [place] [address], [place] [phone] * (ABNORMAL) Comprehensive Metabolic Panel (10/09/2024 11:53 AM EDT) NA 138 135 - 145 mmol/L 10/09/2024 12:41 PM EDT [facility] K 4.0 3.5 - 5.3 mmol/L 10/09/2024 12:41 PM EDT [facility] Cl 103 98 - 107 mmol/L 10/09/2024 12:41 PM EDT [facility] CO2 27 22 - 32 mmol/L 10/09/2024 12:41 PM EDT [facility] Anion Gap 8 5 - 15 10/09/2024 12:41 PM EDT [facility] Glucose 157(H) 65 - 99 mg/dL 10/09/2024 12:41 PM EDT [facility] Creatinine 0.74 0.50 - 1.20 mg/dL 10/09/2024 12:41 PM EDT [facility] Calcium 9.3 8.6 - 10.5 mg/dL 10/09/2024 12:41 PM EDT [facility] Total Protein 8.1(H) 6.0 - 8.0 g/dL 10/09/2024 12:41 PM EDT [facility] Albumin 4.2 3.5 - 5.2 g/dL 10/09/2024 12:41 PM EDT [facility] Bilirubin, Total 0.4 0.2 - 1.2 mg/dL 10/09/2024 12:41 PM EDT [facility] Alkaline Phosphatase 97 35 - 129 U/L 10/09/2024 12:41 PM EDT [facility] AST 20 10 - 40 U/L 10/09/2024 12:41 PM EDT [facility] ALT 17 10 - 40 U/L 10/09/2024 12:41 PM EDT [facility] BUN 19 7 - 23 mg/dL 10/09/2024 12:41 PM EDT [facility] eGFR >90 >=60 mL/min/1. 73m2 10/09/2024 12:41 PM EDT [facility] Comment:The estimated glomer ular [...] - 4.2 g/dL 10/09/2024 12:41 PM EDT [facility] A/G Ratio 1.1(L) 1.5 - 3.0 10/09/2024 12:41 PM EDT [facility] Blood Structure of peripheral vein / Unknown Venipuncture / Unknown 10/09/2024 11:53 AM EDT 10/09/2024 12:10 PM EDT us Amber Islas MD LAB BLOOD ORDERABLES Final Resul t [facility] [address] [place] [address], * Hepatitis C Antibody w/Reflex to PCR (09/15/2023 3:48 PM EDT) Hepatitis C Antibody NON-REACT MICHEAL NON-REACT MICHEAL 09/15/2023 10:45 PM EDT [facility] Comment: HCV antibody was non-reactive. There is no laboratory evidence of HCV infection. In most cases, no further action is required. However, if recent HCV exposure is suspected, a test for HCV RNA (test code 10256) is suggested. For additional information please refer to http://education.Lexara/faq/ODV16u7 (This link is being provided for informational/ educational purposes only.) Blood Structure of peripheral vein / Unknown Venipuncture / Unknown 09/15/2023 3:48 PM EDT 09/15/2023 3:48 PM EDT Narrative [facility] - 09/15/2023 10:45 PM EDT [facility] Received Date: Amber Islas MD LAB BLOOD ORDERABLES Final Resul t [facility] [address] [facility] 3rd Floor, [place] [address], [facility] [address] [facility] 3rd Floor, [place] [address], from Last 3 Months or Most Recently Relevant to Health Maintenance Insurance [facility] [place] [address] Advance Directives Healthcare Agents on File Name Relationship Healthcare Agent Relationsva p Communication Milena Avila Daughter Alternate Health Care Age nt Care Teams Butter Melter Relationship Specialty Start Date End Date Becca Sprague [address] [place] [address] [place] [address] PCP - General Internal Medicine 08/16/19
== END ==
LOC: HO.CARD 10:37
PROVIDERS: PCP Internal Medicine; Visit Provider Internal Medicine
DX: R06.09 Other forms of dyspnea (principal)
CPT/HCPCS: 93306

== ENCOUNTER → 2024-11-29 10:39 | Outpatient (BNV) | payer MEDICARE, MEDICAID, SELFPAY | PROVIDERS: PCP Internal Medicine; Visit Provider Internal Medicine Cardiovascular Disease | DX: R06.09 Other forms of dyspnea (principal); I77.810 Thoracic aortic ectasia | CPT/HCPCS: 93306 ==

== ENCOUNTER 2024-12-10 13:29 | Outpatient (AMB) | payer MEDICARE, MEDICAID, SELFPAY ==
[2024-12-10 13:33] VITALS: BP 100/64; PULSE 70; RESP 18; TEMP 35.9; O2SAT 98; BMI 25.2
--- NOTE | 2024-12-10 13:33 | MHC.PC.OV ---
Vital Signs 12/10/24 13:33 Height 5 ft 7 in Weight 161 lb BMI 25.2 BP 100/64 Blood Pressure Location Rt brachial Position Sitting Respiration 18 Pulse 70 Pulse Source Pulse Oximeter Temp 96.6 F L Temp Source Temporal Artery Scan Pulse Oximetry (%) 98 Oxygen Delivery Method Room Air Intake Visit Reasons: dm,thyroid NEEDS 30 MINUTES Florist Helper Required: No Accompanied by: Self / Same As Patient Allergies gadobutrol (From GADAVIST) Allergy (Severe, Verified 12/10/24 13:51) ANAPHYLAXIS hydroxychloroquine (Plaquenil) Allergy (Intermediate, Verified 12/10/24 13:51) rash,facial swelling levofloxacin (From LEVAQUIN) Allergy (Intermediate, Verified 12/10/24 13:51) ITCHY RASH pregabalin (From LYRICA) Allergy (Intermediate, Verified 12/10/24 13:51) STOMACH UPSET, Swelling tramadol Allergy (Intermediate, Verified 12/10/24 13:51) abdominal pain azathioprine Adverse Reaction (Intermediate, Verified 12/10/24 13:51) Nausea and Vomiting insulin aspart (From Novolog U-100 Insulin aspart) Adverse Reaction (Intermediate, Verified 12/10/24 13:51) chills, shaking, sweating, weakness and tachycardia Vdzfzpk-HLG-WpB Reductase Inhibitor Adverse Reaction (Intermediate, Verified 12/10/24 13:51) transamimitis Medication List - Last Reconciled 12/10/24 by Becca Newberry MD Accu-Chek Guide Glucose Meter (blood-glucose meter) As directed NS Accu-Chek Guide test strips (blood sugar diagnostic) twice daily NS albuterol sulfate 90 mcg/actuation 2 puffs inhalation Q6H PRN 30 days alendronate 70 mg PO QWEEK 90 days [bath bench with back As directed] [bed rails As directed] bismuth subsalicylate 2 tabs PO QID 14 days cholecalciferol (vitamin D3) 50 mcg PO DAILY 90 days dicyclomine 20 mg PO QID PRN docusate sodium (Colace) 100 mg PO BID ergocalciferol (vitamin D2) 1,250 mcg PO WE 90 days famotidine 40 mg PO BID 30 days flash glucose scanning reader (Quandoo Liza 2 [place]) As directed flash glucose sensor (GracenoteStyle Liza 2 Sensor kit) As directed -change every 14 days insulin degludec (Tresiba FlexTouch U-200 insulin) 175 units (0.875 mL) subcut BID 90 days lancets (Accu-Chek Softclix Lancets) As directed bid for use with accucheck guide meter drums were initially dispensed and do not go with her lancing device levocetirizine 5 mg PO DAILY PRN 30 days levothyroxine 200 mcg PO DAILY 90 days levothyroxine 50 mcg PO DAILY 90 days loratadine 10 mg PO DAILY 90 days mercaptopurine 50 mg PO DAILY cftbgrhexl-isfdgxbin-vknntxihc 10-250-12.5 mg (Talicia) 4 caps (4 x 10-250-12.5 mg) PO TID 14 days ondansetron 4 mg PO Q8H PRN oxycodone 10 mg PO Q8H PRN 30 days pantoprazole 40 mg PO DAILY 30 days pen needle, diabetic bid ropinirole 0.25 mg PO BEDTIME PRN rosuvastatin 10 mg PO DAILY 90 days semaglutide (Ozempic) 0.5 mg (0.736 mL) subcut QWEEK 4 weeks sucralfate (Carafate) 10 mL PO QID PRN sucralfate (Carafate) 10 mL PO BID 7 days underpads (Bed Underpads) As directed zolpidem 10 mg PO BEDTIME 30 days Tobacco use date assessed: 12/10/24 Dental Screening Dental Screen Date: 12/10/24 Did you have a dental visit in the last 12 months?: Yes Did you have a dental problem in the last 6 months where you did not have access to dental care?: No Was dental information given to patient?: Patient has dentist HPI HPI Comments History of Present Illness Details This is a 59-year-old female with diabetes mellitus type 2 on long-term current use of insulin, hyperlipidemia, autoimmune hepatitis and autoimmune thyroiditis that comes today for follow-up on her conditions. Last A1c was within goal being 7%. Blood pressure stable. LDL close to goal. TSH is low and I decrease levothyroxine from 250 mcg to 225 mcg. She is aware thyroid function test needs to be repeated in 6 weeks. Also vitamin-D is low but I did refill the medication. She admits that she was not compliant with her medications for a little bit but now she is back on track. On mercaptopurine for autoimmune hepatitis which is follow by Gastroenterology. Echocardiogram was done showing mild ascending aortic dilation and will be repeated to Cardiology. Patient is aware. She still has left forearm pain and is receiving therapy for it. Nerve conduction study is pending for next month. She does have rheumatoid arthritis and cancel her appointment with rheumatology this month. [facility] Medical History (Updated 12/10/24 @ 14:14 by Becca Newberry MD) Pulmonary emphysema Left upper arm pain Right arm pain Hypothyroidism Type 2 diabetes mellitus Osteoarthritis of hand, left Chronic constipation Hypoactive bowel sounds Hand numbness Autoimmune thyroiditis Abdominal pain Inflammatory arthritis Breast mass, right Lung cyst Bilateral hand numbness Neck pain Dyslipidemia Post-surgical hypothyroidism Diabetic polyneuropathy associated with type 2 diabetes mellitus senior living (current) use of insulin Chronic idiopathic constipation Low vitamin D level Weight loss GERD (gastroesophageal reflux disease) Diabetes type 2, uncontrolled Fibromyalgia Insomnia Surgical History History of endoscopy Hx of arthroscopy of right knee Hx of arthroscopy of left knee History of liver biopsy Hx of removal of cyst History of hysterectomy History of thyroidectomy, total History of esophagogastroduodenoscopy (EGD) Hx of colonoscopy (1998) Family History Father Status post liver transplant, biliary anastomotic size mismatch Brother Cardiac arrest Mother No problems noted. Maternal Aunt Breast cancer Brother Essential hypertension Substance abuse Pure hypercholesterolemia Other Mental health problem Social History Household Members: None Housing: House Alcohol intake: never Patient Tobacco Use Status: Former Tobacco user Tobacco use type: Cigarette Cigarettes Per Day: 7 Years Smoked: 6 e-Cigarette/Vaping Use: Never Used Second Hand Smoke Exposure: Yes Advance Directives Date on File: 07/15/20 service: No Current occupational status: disabled Current occupation: right hand Cognitive needs: Yes (Walker) Hearing needs: No Vision needs: No Female Reproductive History Menstrual Age of Menarche: 12 Questionnaire PHQ-9 Over the last 2 weeks, how often have you been bothered by any of the following problems? 1. Little interest or pleasure in doing things: more than half the days 2. Feeling down, depressed, or hopeless: several days 3. Trouble falling or staying asleep, or sleeping too much: several days 4. Feeling tired or having little energy: several days 5. Poor appetite or overeating: more than half the days 6. Feeling bad about yourself - or that you are a failure or have let yourself or your family down: not at all 7. Trouble concentrating on things, such as reading the newspaper or watching television: several days 8. Moving or speaking so slowly that other people could have noticed. Or the opposite - being so fidgety or restless that you have been moving around a lot more than usual: several days 9. Thoughts that you would be better off or of hurting yourself in some way: not at all Total score: 9 Depression Screening Interpretation: Positive Depression Screening Follow-up: Existing condition, Follow-up Visit Requested and Declines treatment Depression Screening Done: Yes 96757 - PHQ-9 Billing: Yes Source: Developed by Drs. Esdras Tang, April Mathews, Bobby Toussaint and colleagues, with an educational antonella from [employer]. Thrive Questionnaire Date Thrive assessed: 12/10/24 I am a: Patient What is your living situation today?: I have a steady place to live Within the past 12 months, did the food you bought not last and you didn't have the money to get more?: Sometimes True Within the past 12 months, did you worry whether your food would run out before you got money to buy more?: Often true Do you have trouble paying for medicines?: No Do you have trouble getting transportation to medical appointments?: Yes Do you have trouble paying your heating and electricity bill?: Yes Do you have trouble taking care of your child, family member or friend?: No Do you have trouble with day-to-day activities such as bathing, preparing meals, shopping, managing finances, etc.?: No Are you currently unemployed and looking for a job?: No Are you interested in more education?: No Please select the resources that you would like help with: None Currently or been in a relationship where the following occur: No concerns reported THRIVE Score: 4 AUDIT C Alcohol Use Questionnaire (AUDIT-C) 1. How often do you have a drink containing alcohol?: Never Total Score: 0 Score Reviewed/Action Taken: No HATTIE-7 AMB Questionnaire HATTIE-7 Date HATTIE - 7 assessed: 12/10/24 Feeling nervous, anxious, or on edge: 1 = Several days Not being able to stop or control worryin = Not at all Worrying too much about different things: 1 = Several days Trouble relaxin = More than half the days Being so restless that it is hard to sit still: 0 = Not at all Becoming easily annoyed or irritable: 0 = Not at all Feeling afraid as if something awful might happen: 1 = Several days Total HATTIE-7 score (0-4 normal; 5-9 mild; 10-14 moderate; 15-21 severe): 5 Source: Developed by Drs. Esdras Tang, April Mathews, Bobby Toussaint and colleagues, with an educational antonella from [employer]. HATTIE-7 Assessment Billing HATTIE-7 Assessment Tool: HATTIE-7 Assessment 07005 Review of Systems Const All systems reviewed & are unremarkable except as noted in HPI and below Card Denies chest pain at rest, Denies chest pain with activity, Denies edema, Denies irregular heart rhythm, Denies claudication, Denies dyspnea, Denies dyspnea on exertion, Denies orthopnea, Denies paroxysmal nocturnal dyspnea and Denies slow heart rate Resp Denies cough, Denies dyspnea and Denies dyspnea on exertion Physical exam (Primary Care) Vital Signs: Last Vital Signs Temp 96.6 F L 12/10/24 13:33 Pulse 70 12/10/24 13:33 Resp 18 12/10/24 13:33 BP 100/64 12/10/24 13:33 Pulse Ox 98 12/10/24 13:33 Oxygen Delivery Method Room Air 12/10/24 13:33 BMI result Body Mass Index 25.2 Tobacco/Smoking Status: Tobacco use Status Tobacco use date assessed 12/10/24 12/10/24 13:44 Patient Tobacco Use Status Former Tobacco user 12/10/24 13:44 Tobacco use type Cigarette 12/10/24 13:44 e-Cigarette/Vaping Use Never Used 12/10/24 13:44 PHQ-9: PHQ-9 Score PHQ-9: Total score 9 12/10/24 13:44 Depression Screening Interpretation: Positive Depression Screening Follow-up: Existing condition, Follow-up Visit Requested and Declines treatment Thrive Assessment: Date of Thrive Assessment Date Thrive assessed 12/10/24 12/10/24 13:44 Currently or been in a relationship where the following occur: No concerns reported Resp Effort & Inspection: normal respiratory effort Auscultation: clear to auscultation bilaterally Cardio Jugular venous distension: no JVD Rate: regular rate Rhythm: regular rhythm Heart sounds: S1 normal heart sound present and S2 normal heart sound present Extrem General: Yes full ROM Coding Level of Care Code Est Pt Level 4 (66914) Complex EM visit Add On G2211 Diagnoses Ascending aorta dilation I77.810 Type 2 diabetes mellitus with hyperglycemia, with long-term current use of insulin E11.65; Z79.4 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 insulin use: with correction use Diabetes mellitus complication status: with hyperglycemia Hyperlipidemia LDL goal <70 E78.5 Autoimmune thyroiditis E06.3 Autoimmune hepatitis K75.4 Seronegative rheumatoid arthritis M06.00 Additional Codes HATTIE-7 Assessment Billing - HATTIE-7 Assessment Tool: HATTIE-7 Assessment 92957 ([id number]) PHQ-9 - 54754 - PHQ-9 Billing: Yes ([id number]) Time Spent (min) 23 Assessment & Plan Assessment & Plan (1) Ascending aorta dilation: Code(s): I77.810 - Thoracic aortic ectasia Category: Medical (2) Type 2 diabetes mellitus: Code(s): E11.9 - Type 2 diabetes mellitus without complications Category: Medical Qualifiers: 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 Code(s): M06.00 - Rheumatoid arthritis without rheumatoid factor, unspecified site Category: Medical Plan Referred to cardiology for ascending aortic dilation. Decrease levothyroxine to 225 mcg. Repeat TSH in 6 weeks. Follow-up with Gastroenterology regarding her autoimmune hepatitis. Continue current meds. Follow-up labs for next office visit. Blood pressure goal is equal or less than 130/80. A1c goal is equal or less than 7%. LDL goal is equal or less than 70. Orders: Orders Thyroid Stimulating Hormone 6 Weeks E06.3 - Autoimmune thyroiditis Referrals Cardiology Referral I77.810 - Thoracic aortic ectasia Medications: New levothyroxine (Levo-T) 25 mcg PO DAILY 90 tabs 1RF 90 days Refilled cholecalciferol (vitamin D3) 50 mcg PO DAILY 90 caps 3RF 90 days Discontinued levothyroxine Discontinued Reason: Patient Completed Course 50 mcg PO DAILY 90 days 90 tabs 0RF ergocalciferol (vitamin D2) Discontinued Reason: Order 1,250 mcg PO WE 90 days 13 caps 1RF
--- OUTSIDE RECORDS SUMMARY | 2024-12-10 18:45 | XMS_ITS | Patient Health Record ---
Author Organization [facility] Address [address] [place] [address] Care Team Providers Care Welder Machine Operator Name Role Phone Becca Sprague Primary Care Provider UnavailEsdras Cristobal Unavailable [phone] Allergies Allergen (clinical drug ingredient) Drug/Non Drug [...] Status Risk Notes Problem Irritable bowel syndrome (48559879) Irritable bowel syndrome (564.1) Active confirmed Problem Dysphagia (40714380) Dysphagia (787.20) Active confirmed Problem Gastroesophageal reflux disease (264205669) GERD (gastroesophag eal reflux disease) (530.81) Active confirmed Problem Esophageal spasm (97340832) Esophageal spasm (530.5) Active confirmed Problem Irritable bowel syndrome (80607200) IBS (irritable bowel syndrome) (564.1) Active confirmed Plan Of Treatment No Information Insurance Providers Payer Name Payer Address Payer Phone Subscriber Number Group Number Insured Name Patient Relationship to Insured Coverage Start Date Coverage End Date MEDICARE OF [place] [address] [place] [address] [phone] [id number] DIEGO FORD Self - patient is the insured MEDICAID OF [facility] [address] [place] PANG [phone] [id number] DIEGO FORD Self - patient is the [...] underlying colitis anxiety depression migranes hypothyroidism Denies RI,CVA,Lung disease,renal disease diverticulosis and internal hemorrhoids seen [...]
--- OUTSIDE RECORDS SUMMARY | 2024-12-10 18:45 | XMS_ITS | Encounter Summary ---
Author Organization [facility] Address [address] [place] [address] Care Team Providers Care Auto Design Checker Name Role Phone Becca Sprague Primary Care Provider [phone] Encounter Details Date Type Department Care Team (Late st Contact Info) Description 10/09/[address] [facility] Interventional Radiology [address] [place] [address] Loida Marshall, PA [address] [place] [address] Social History Tobacco Use Types Packs/Day Years [...] on filedocumented in this encounter Care Teams Auto Design Checker Relationship Specialty Start Date End Date Becca Sprague [address] [place] [address] [place] [address] PCP - General Internal Medicine 08/16/19 documented as of this encounter
--- OUTSIDE RECORDS SUMMARY | 2024-12-10 18:45 | XMS_ITS | Clinical Summary ---
Author Organization [facility] Address [address] [place] [address] Care Team Providers Care Network Control Operator Name Role Phone Becca Sprague Primary Care Provider [phone] Allergies Active Allergy Reactions Criticality Noted Date [...] Department Care Team Description 11/14/2024 Orders Only [facility]plant Services [address] [place] [address] Amber Islas MD 11/08/2024 Telephone [facility] Transplant Department [address] [place] [address] [facility] 11/07/2024 Telephone [facility] Transplant Department [address] [place] [address] [facility] 10/12/2024 Orders Only [facility] Interventional Radiology [address] [place] [phone] Loida Marshall PA Autoimmune hepatitis (HCC) (Primary Dx) 10/09/2024 11:00 AM EDT Follow-Up [facility] [address] [place] [address] Amber Islas MD Chronic autoimmune hepatitis (HCC) (Primary Dx) 10/09/2024 Orders Only [facility] Interventional Radiology [address] [place] [phone] Loida Marshall PA from Last 3 Months [...] Screening Completed 09/15/2023 Procedures * Due to [place] [employer] law, this organization might not be sharing [...] to Health Maintenance Results * Due to [place] [employer] law, this organization might not be sharing negative HIV tests. * (ABNORMAL) CBC Auto Differential (10/09/2024 11:53 AM EDT) WBC 3.4(L) 3.8 - 10.8 10*3/uL 10/09/2024 12:08 PM EDT [facility] RBC 3.91 3.80 - 5.10 10*6/uL 10/09/2024 12:08 PM EDT [facility] Hemoglobin 11.6(L) 11.7 - 15.5 g/dL 10/09/2024 12:08 PM EDT [facility] Hematocrit 34.4(L) 35.0 - 45.0 % 10/09/2024 12:08 PM EDT [facility] MCV 88.0 80.0 - 100.0 fL 10/09/2024 12:08 PM EDT [facility] MCH 29.7 27.0 - 33.0 pg 10/09/2024 12:08 PM EDT [facility] MCHC 33.7 32.0 - 36.0 g/dL 10/09/2024 12:08 PM EDT [facility] RDW 12.8 11.0 - 15.0 % 10/09/2024 12:08 PM EDT [facility] Platelets 201 140 - 400 10*3/uL 10/09/2024 12:08 PM EDT [facility] MPV 8.8 7.5 - 12.5 fL 10/09/2024 12:08 PM EDT [facility] Neutrophil % 48.3 % 10/09/2024 12:08 PM EDT [facility] Immature Grans % 0.0 0.0 - 0.9 % 10/09/2024 12:08 PM EDT [facility] Lymphocyte % 44.4 % 10/09/2024 12:08 PM EDT [facility] Monocyte % 6.1 % 10/09/2024 12:08 PM EDT [facility] Eosinophil % 0.6 % 10/09/2024 12:08 PM EDT [facility] Basophil % 0.6 % 10/09/2024 12:08 PM EDT [facility] Neutrophil # 1.65 1.50 - 7.80 10*3/uL 10/09/2024 12:08 PM EDT [facility] Immature Grans # <0.03 <=0.03 10*3/uL 10/09/2024 12:08 PM EDT [facility] Lymphocyte # 1.50 0.85 - 3.90 10*3/uL 10/09/2024 12:08 PM EDT [facility] Monocyte # 0.20 0.20 - 0.95 10*3/uL 10/09/2024 12:08 PM EDT [facility] Eosinophil # <0.03 0.02 - 0.50 10*3/uL 10/09/2024 12:08 PM EDT [facility] Basophil # <0.03 0.00 - 0.20 10*3/uL 10/09/2024 12:08 PM EDT [facility] nRBC % 0.0 /100 WBCs 10/09/2024 12:08 PM EDT [facility] nRBC # <0.01 <0.01 10*3/uL 10/09/2024 12:08 PM EDT [facility] Blood Structure of peripheral vein / Unknown Venipuncture / Unknown 10/09/2024 11:53 AM EDT 10/09/2024 12:02 PM EDT us Amber Islas MD LAB BLOOD ORDERABLES Final Resul t [facility] [address] [place] [address], * (ABNORMAL) Vitamin A (Retinol) (10/09/2024 11:53 AM EDT) Vitamin A (Retinol) 30(L) 38 - 98 mcg/dL 10/12/2024 3:20 PM EDT [facility] ([facility]) Comment: Vitamin supplementation within 24 hours prior to blood draw may affect the accuracy of the results. This test was developed and its analytical performance characteristics have been determined by [employer] [place], [place]. It has not been cleared or approved by the U.S. Food and Drug Administration. This assay has been validated pursuant to the CLIA regulations and is used for clinical purposes. Blood Structure of peripheral vein / Unknown Venipuncture / Unknown 10/09/2024 11:53 AM EDT 10/09/2024 11:59 AM EDT Deid[facility] ([facility]) - 10/12/2024 3:20 PM EDT [facility] Received Date:[id number] Amber Islas MD LAB BLOOD ORDERABLES Final Resul t [facility] ([facility]) [address] [place], [place] , [place] * (ABNORMAL) Vitamin D, 25-Hydroxy, Total, Immunoassay (10/09/2024 11:53 AM EDT) [facility] Signature Calcidiol+ercalc idiol 25(L) 30 - 100 ng/mL 10/09/2024 10:36 PM EDT [facility] Comment: Vitamin D Status 25-OH Vitamin D: Deficiency: <20 ng/mL Insufficiency: 20 - 29 ng/mL Optimal: > or = 30 ng/mL For 25-OH Vitamin D testing on patients on D2-supplementation and patients for whom quantitation of D2 and D3 fractions is required, the QuestAssureD(TM) 25-OH VIT D, (D2,D3), LC/MS/MS is recommended: order code [id number] (patients >2yrs). See Note 1 Note 1 For additional information, please refer to http://education.[employer] Systems.KeepGo/faq/VWM598 (This link is being provided for informational/ educational purposes only.) Blood Structure of peripheral vein / Unknown Venipuncture / Unknown 10/09/2024 11:53 AM EDT 10/09/2024 12:01 PM EDT De[facility] NORRIS - 10/09/2024 10:36 PM EDT [facility] Received Date:[id number] us Amber Islas MD LAB BLOOD ORDERABLES Final Resul t [facility] [address] [place] [address] 3rd Floor, [place] [address], [place] [phone] [facility] [address] [facility] 3rd Floor, [place] [address], [place] [phone] * (ABNORMAL) Comprehensive Metabolic Panel (10/09/2024 11:53 AM EDT) NA 138 135 - 145 mmol/L 10/09/2024 12:41 PM EDT [facility] K 4.0 3.5 - 5.3 mmol/L 10/09/2024 12:41 PM EDT [email or web address] Cl 103 98 - 107 mmol/L 10/09/2024 12:41 PM EDT [email or web address] CO2 27 22 - 32 mmol/L 10/09/2024 12:41 PM EDT [facility] Anion Gap 8 5 - 15 10/09/2024 12:41 PM EDT [facility] Glucose 157(H) 65 - 99 mg/dL 10/09/2024 12:41 PM EDT [facility] Creatinine 0.74 0.50 - 1.20 mg/dL 10/09/2024 12:41 PM EDT [facility] Calcium 9.3 8.6 - 10.5 mg/dL 10/09/2024 12:41 PM EDT [facility] Total Protein 8.1(H) 6.0 - 8.0 g/dL 10/09/2024 12:41 PM EDT [facility] Albumin 4.2 3.5 - 5.2 g/dL 10/09/2024 12:41 PM EDT [facility] Bilirubin, Total 0.4 0.2 - 1.2 mg/dL 10/09/2024 12:41 PM EDT [facility] Alkaline Phosphatase 97 35 - 129 U/L 10/09/2024 12:41 PM EDT [facility] AST 20 10 - 40 U/L 10/09/2024 12:41 PM EDT [facility] ALT 17 10 - 40 U/L 10/09/2024 12:41 PM EDT [facility] BUN 19 7 - 23 mg/dL 10/09/2024 12:41 PM EDT [facility] eGFR >90 >=60 mL/min/1. 73m2 10/09/2024 12:41 PM EDT [facility] Comment:The estimated glomer [...] - 4.2 g/dL 10/09/2024 12:41 PM EDT [facility] A/G Ratio 1.1(L) 1.5 - 3.0 10/09/2024 12:41 PM EDT [facility] Blood Structure of peripheral vein / Unknown Venipuncture / Unknown 10/09/2024 11:53 AM EDT 10/09/2024 12:10 PM EDT us Amber Islas MD LAB BLOOD ORDERABLES Final Resul t [facility] [address] [place] [address], * Hepatitis C Antibody w/Reflex to PCR (09/15/2023 3:48 PM EDT) Hepatitis C Antibody NON-REACT MICHEAL NON-REACT MICHEAL 09/15/2023 10:45 PM EDT [facility] Comment: HCV antibody was non-reactive. There is no laboratory evidence of HCV infection. In most cases, no further action is required. However, if recent HCV exposure is suspected, a test for HCV RNA (test code 92487) is suggested. For additional information please refer to http://education.Desmos/faq/EWB02l9 (This link is being provided for informational/ educational purposes only.) Blood Structure of peripheral vein / Unknown Venipuncture / Unknown 09/15/2023 3:48 PM EDT 09/15/2023 3:48 PM EDT Narrative [facility] - 09/15/2023 10:45 PM EDT [facility] Received Date: Amber Islas MD LAB BLOOD ORDERABLES Final Resul t [facility] [address] [facility] 3rd Floor, [place] [address], [facility] [address] [facility] 3rd [address], [place] [address], from Last 3 Months or Most Recently Relevant to Health Maintenance Insurance [facility] [place] [address] Advance Directives Healthcare Agents on File Name Relationship Healthcare Agent Relationsal p Communication Milena Avila Daughter Alternate Health Care Age nt Care Teams Network Control Operator Relationship Specialty Start Date End Date Becca Sprague [address] [place] [address] [place] [address] PCP - General Internal Medicine 08/16/19
--- OUTSIDE RECORDS SUMMARY | 2024-12-10 18:46 | XMS_ITS | Clinical Summary ---
Author Organization [facility] [employer] [facility] Address [address] [facility] 7[address] [place] [address] Care Team Providers Care Rn Peritoneal Dialysis Name Role Phone Unavailable Primary Care Provider [...] Description 01/03/2025 2:00 PM EDT Office Visit [facility] ADULT DENTAL [address] [place] [address] Ezra Cortezsa Health Maintenance Due Date Last [...] Most Recently Relevant to Health Maintenance Insurance [facility] MEDICAID STAND ADULT
== END 2024-12-10 14:15 | disposition home or self-care (01) ==
LOC: HO.HMCH 13:30
PROVIDERS: PCP Internal Medicine; Visit Provider Internal Medicine
DX: E11.65 Type 2 diabetes mellitus with hyperglycemia (principal); Z79.4 Long term (current) use of insulin; K75.4 Autoimmune hepatitis; M06.00 Rheumatoid arthritis without rheumatoid factor, unspecified site; I77.810 Thoracic aortic ectasia; E78.5 Hyperlipidemia, unspecified; E06.3 Autoimmune thyroiditis

== ENCOUNTER → 2024-12-10 13:29 | Outpatient (BNVA) | payer MEDICARE, MEDICAID, SELFPAY | PROVIDERS: PCP Internal Medicine; Visit Provider Internal Medicine | DX: K75.4 Autoimmune hepatitis (principal); K29.70 Gastritis, unspecified, without bleeding; A04.8 Other specified bacterial intestinal infections; B96.81 Helicobacter pylori [H. pylori] as the cause of diseases classified elsewhere; K21.9 Gastro-esophageal reflux disease without esophagitis; K63.89 Other specified diseases of intestine; E11.9 Type 2 diabetes mellitus without complications; E78.5 Hyperlipidemia, unspecified; I77.810 Thoracic aortic ectasia; E11.65 Type 2 diabetes mellitus with hyperglycemia; E06.3 Autoimmune thyroiditis; M06.00 Rheumatoid arthritis without rheumatoid factor, unspecified site; Z79.4 Long term (current) use of insulin | CPT/HCPCS: 96127; 99212 ==

== ENCOUNTER 2024-12-10 14:24 | Outpatient (AMB) | payer MEDICARE, MEDICAID, SELFPAY ==
--- NOTE | 2024-12-10 14:31 | A.OFFVIS_ITS ---
Vital Signs 12/10/24 14:33 Height 5 ft 7 in Weight 160 lb 11.725 oz BMI 25.2 BP 113/66 Blood Pressure Location Rt brachial Position Sitting Pulse 60 Intake Visit Reasons: s/p EGD Intake Note: Cece presents in the office as a follow up for her EGD. CC: states that she has not started the treatment. She states that the pains have gotten a little better since going to the ED - she was feeling pressure on the right upper side. She states her consentration and conufsion is more and she feels dizzy more than usual. Allergies gadobutrol (From GADAVIST) Allergy (Severe, Verified 12/10/24 14:34) ANAPHYLAXIS hydroxychloroquine (Plaquenil) Allergy (Intermediate, Verified 12/10/24 14:34) rash,facial swelling levofloxacin (From LEVAQUIN) Allergy (Intermediate, Verified 12/10/24 14:34) ITCHY RASH pregabalin (From LYRICA) Allergy (Intermediate, Verified 12/10/24 14:34) STOMACH UPSET, Swelling tramadol Allergy (Intermediate, Verified 12/10/24 14:34) abdominal pain azathioprine Adverse Reaction (Intermediate, Verified 12/10/24 14:34) Nausea and Vomiting insulin aspart (From Novolog U-100 Insulin aspart) Adverse Reaction (Intermediate, Verified 12/10/24 14:34) chills, shaking, sweating, weakness and tachycardia Sgndyee-XSM-NaY Reductase Inhibitor Adverse Reaction (Intermediate, Verified 12/10/24 14:34) transamimitis HPI Comments Details: This is a 56-year-old female past medical history of fibromyalgia, H pylori gastritis, who is following up for autoimmune hepatitis (with grade 2-3 activity and stage 3-4 fibrosis biopsy 11/2021). Recap: - Pt initially seen in 10/2021 for intermittent RUQ pain and elevated LFTs. Pt also has RA and was on MTX at one point but stopped this in summer 2021 due to elevation of LFTs. - Workup pos for ASMA 56. Previously check total IgG was elevated at 1884 in 2019. - Patient underwent liver biopsy on 12/18/21. Consistent with autoimmune hepatitis as suspected, with grade 2-3 activity and stage 3-4 fibrosis. - Treatment initially challenging due to labile sugars on pred and intolerance to Azathioprine. - Eventually switched to 6-MP in 03/2022. Adherence remained suboptimal throughout 2022 due to life events inclduing of her brother, surgeries leading to interruption in 6-MP which would then trigger AIH flare up. Has required multiple courses of high dose pred over the last 2 years. - Has also had ? of PSC based on elevated ALP and irregular dilation of CBD 14 mm ([facility] MRI scanned 07/2023) - H Pylori + since at least 2020. Tx deferred so far due to compliance issues. - Started on ozempic late 2023 which she self discontinued after weight loss from BMI 30 to 25. - MRI 04/2024 again with mid duct turn vs narrowing. Common hepatic duct dilated to 14 mm. 11/22/23: [place] Impression: 1. Normal colon and terminal ileum mucosa 2. Diverticulosis 3. Internal and external hemorrhoids Recommendations: - repeat colonoscopy for asymptomatic colorectal cancer screening in 10 years 10/22/24: Here for follow up. Had been to ER x 2 earlier this month for abd pain, N,V. Assoc with chills. No fevers. No sick contacts. Had a terrible experience 10/14 when her IV infiltrated with contrast. Had pain in left arm for days. Now also reporting altered sensation and weakness in that arm. CT abd/pel reports irregular wall thickening in transverse colon. Currently no abd pain or N/V. Was seen by Dr Islas [facility]- notes reviewed. Pt mentions getting justine for possible ERCP but unable to find that documentation. I again expressed my concerns re CBD abnl in the context of AIH and that I remain concerned re PSC. LFTs are normal. ERCP remains the next best step possibly with spyglass however pt is unsure if she is getting EGD or ERCP done at [facility]. 11/01/24: EGD * Normal esophagus (biopsy) * Gastritis (biopsy) * Normal duodenum (biopsy) Path: A. Duodenum, biopsy: -Duodenal mucosa with preserved villi and no specific change. B. Stomach, random, biopsy: -Gastric antral mucosa with chronic Helicobacter gastritis with mild-moderate activity and intestinal metaplasia (complete); negative for dysplasia. -Gastric body mucosa with chronic Helicobacter gastritis with minimal activity; negative for intestinal metaplasia and dysplasia. C. Esophagus, lower, biopsy: Squamous mucosa with no specific change; no evide nce of eosinophilic esophagitis; no columnar mucosa present. D. Esophagus, middle, biopsy: Squamous mucosa with no specific change; no evidence of eosinophilic esophagitis; no columnar mucosa present. 12/10/24: Here for follow-up. Reports no acute gastrointestinal complaints. Results of EGD reviewed. Has known H pylori gastritis. Patient was prescribed request not dual pack, but hesitate to start treatment. Does not mentally feel ready for regimented antibiotic therapy. Reports a lot of her time is spent taking care for mom at home, and she is afraid she may miss doses. She also has a pending finding of colon wall thickness in transverse colon. Plan was for a barium enema evaluation, however patient prefers to just get a repeat colonoscopy instead. In terms of heartburn hepatitis, continues to be in remission based on labs. Abdominal pain, nausea, vomiting. MRI imaging was reviewed with conduit reamer operator Dr Islas ([facility]) - more consistent with post-CCY appearance. Repeat MRI in a year recommended. 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 Maternal Aunt Breast cancer Brother Essential hypertension Substance abuse Pure hypercholesterolemia Other Mental health problem Social History Household Members: None Housing: House Alcohol intake: never Patient Tobacco Use Status: Former Tobacco user Tobacco use type: Cigarette Cigarettes Per Day: 7 Years Smoked: 6 e-Cigarette/Vaping Use: Never Used Second Hand Smoke Exposure: Yes Advance Directives Date on File: 07/15/20 service: No Current occupational status: disabled Current occupation: right hand Cognitive needs: Yes (Walker) Hearing needs: No Vision needs: No Female Reproductive History Menstrual Age of Menarche: 12 Review of Systems Const All systems reviewed & are unremarkable except as noted in HPI and below Physical Exam Exam Exam: No apparent distress Nonicteric Abdomen soft, nondistended Alert and oriented x3, normal gait Vital Signs: Last Vital Signs Pulse 60 12/10/24 14:33 BP 113/66 12/10/24 14:33 BMI result Body Mass Index 25.2 Assessment & Plan Assessment & Plan (1) Colon wall thickening: Code(s): K63.9 - Disease of intestine, unspecified Category: Medical (2) Dilated bile duct: Code(s): K83.8 - Other specified diseases of biliary tract Category: Medical (3) Autoimmune hepatitis: Code(s): K75.4 - Autoimmune hepatitis Category: Medical (4) Helicobacter pylori gastritis: Code(s): K29.70 - Gastritis, unspecified, without bleeding; B96.81 - Helicobacter pylori [H. pylori] as the cause of diseases classified elsewhere Category: Medical (5) H. pylori infection: Code(s): A04.8 - Other specified bacterial intestinal infections Category: Medical (6) GERD (gastroesophageal reflux disease): Code(s): K21.9 - Gastro-esophageal reflux disease without esophagitis Category: Medical Qualifiers: Esophagitis presence: esophagitis presence not specified Qualified Code(s): K21.9 - Gastro-esophageal reflux disease without esophagitis Plan 1. AIH 2. Dilated bile duct Patient has biopsy-proven autoimmune hepatitis. This appears to be in remission at this time. Based on discussion with Dr Islas, bile duct appearance consistent with post cholecystectomy appearance. Plan: * Continue 6-MP 50mg. * Repeat MRI with and without contrast in 1 year - due May 2025 * Ultrasound abdomen due * Osteopenia: On vitamin-D - follows with endocrinology * Transplant candidacy: Established with [facility] Hep - Dr Islas. 3. Transverse colon wall thickening Noted when patient was in the emergency room for abdominal pain, nausea vomiting, diarrhea. Most likely infectious, however will proceed with diagnostic colonoscopy for evaluation. Plan: -PEG prep prescribed -colonoscopy to be booked -since patient constipated at baseline, she is aware to start bisacodyl tablets 2 days before the procedure 4. H Pylori Quad therapy started in June but pt was unable to tolerate due to side effects. Request in a prescribed most recently, but patient reports that she is not yet ready to start the treatment. She prefers to postpone this to early 2025. Follow up 4 months Orders: Orders US abdomen complete 12/10/24 K75.4 - Autoimmune hepatitis Referrals GI Procedure Notification K63.9 - Disease of intestine, unspecified Medications: New peg 3350-electrolytes 236-22.74-6.74 -5.86 gram (Golytely) as per split prep instructions, until fecal effluent is clear 240 mL PO Q10M 4,000 mL 0RF colonoscopy bisacodyl start taking 2 days before colo 10 mg (2 x 5 mg) PO BID 8 tabs 0RF 2 days Coding Level of Care Code Est Pt Level 5 (51787) Complex EM visit Add On G2211 Diagnoses Colon wall thickening K63.9 Dilated bile duct K83.8 Autoimmune hepatitis K75.4 Helicobacter pylori gastritis K29.70; B96.81 H. pylori infection A04.8 Gastroesophageal reflux disease, unspecified whether esophagitis present K21.9 Esophagitis presence: esophagitis presence not specified
[2024-12-10 14:33] VITALS: BP 113/66; PULSE 60; BMI 25.2
== END 2024-12-10 15:15 | disposition home or self-care (01) ==
LOC: HO.HGI 14:25
PROVIDERS: PCP Internal Medicine; Visit Provider Internal Medicine
DX: K75.4 Autoimmune hepatitis (principal); K63.9 Disease of intestine, unspecified; K83.8 Other specified diseases of biliary tract; K29.70 Gastritis, unspecified, without bleeding; B96.81 Helicobacter pylori [H. pylori] as the cause of diseases classified elsewhere; A04.8 Other specified bacterial intestinal infections; K21.9 Gastro-esophageal reflux disease without esophagitis
CPT/HCPCS: 99214; G2211

== ENCOUNTER 2024-12-18 13:25 | Outpatient (AMB) | payer MEDICARE, MEDICAID, SELFPAY ==
--- NOTE | 2024-12-18 13:42 | A.OFFVIS_ITS ---
Intake Intake Visit Reasons: T2DM / CGM Medical Photographer Required: No Accompanied by: Self / Same As Patient Allergies gadobutrol (From GADAVIST) Allergy (Severe, Verified 12/10/24 14:34) ANAPHYLAXIS hydroxychloroquine (Plaquenil) Allergy (Intermediate, Verified 12/10/24 14:34) rash,facial swelling levofloxacin (From LEVAQUIN) Allergy (Intermediate, Verified 12/10/24 14:34) ITCHY RASH pregabalin (From LYRICA) Allergy (Intermediate, Verified 12/10/24 14:34) STOMACH UPSET, Swelling tramadol Allergy (Intermediate, Verified 12/10/24 14:34) abdominal pain azathioprine Adverse Reaction (Intermediate, Verified 12/10/24 14:34) Nausea and Vomiting insulin aspart (From Novolog U-100 Insulin aspart) Adverse Reaction (Intermediate, Verified 12/10/24 14:34) chills, shaking, sweating, weakness and tachycardia Zehoavi-DSS-VvU Reductase Inhibitor Adverse Reaction (Intermediate, Verified 12/10/24 14:34) transamimitis HPI Comprehensive Diabetes Asmnt Most Recent Diabetes Results: 2 Hemoglobin A1c 5.8 % 09/03/19 Microalb/Creat Ratio, (<30) 17.2 ug/mg cr 11/28/24 Cholesterol, (<200) 134 mg/dL 11/28/24 HDL Cholesterol, (>40) 46 mg/dL 11/28/24 Triglycerides, (<150) 54 mg/dL 11/28/24 Creatinine, (0.5-1.4) 0.64 mg/dL 11/28/24 BUN, (9-16) 12 mg/dL 11/28/24 Sodium, (135-145) 140 mmol/L 11/28/24 Potassium, (3.3-5.1) 4.2 mmol/L 11/28/24 Chloride, (96-108) 108 mmol/L 11/28/24 Carbon Dioxide, (22-29) 28 mmol/L 11/28/24 Calcium, (8.4-10.2) 9.3 mg/dL Δ 11/28/24 AST, (5-31) 24 U/L 11/28/24 ALT, (0-31) 34 U/L H 11/28/24 Total Protein, (6.5-8.0) 7.8 g/dL 11/28/24 Albumin, (3.5-5.0) 4.2 g/dL 11/28/24 PFSH Medical History Pulmonary emphysema Left upper arm pain Right arm pain Hypothyroidism Type 2 diabetes mellitus Osteoarthritis of hand, left Chronic constipation Hypoactive bowel sounds Hand numbness Autoimmune thyroiditis Abdominal pain Inflammatory arthritis Breast mass, right Lung cyst Bilateral hand numbness Neck pain Dyslipidemia Post-surgical hypothyroidism Diabetic polyneuropathy associated with type 2 diabetes mellitus intermediate (current) use of insulin Chronic idiopathic constipation Low vitamin D level Weight loss GERD (gastroesophageal reflux disease) Diabetes type 2, uncontrolled Fibromyalgia Insomnia Surgical History History of endoscopy Hx of arthroscopy of right knee Hx of arthroscopy of left knee History of liver biopsy Hx of removal of cyst History of hysterectomy History of thyroidectomy, total History of esophagogastroduodenoscopy (EGD) Hx of colonoscopy (1998) Family History Father Status post liver transplant, biliary anastomotic size mismatch Brother Cardiac arrest Mother No problems noted. Maternal Aunt Breast cancer Brother Essential hypertension Substance abuse Pure hypercholesterolemia Other Mental health problem Social History Household Members: None Housing: House Alcohol intake: never Patient Tobacco Use Status: Former Tobacco user Tobacco use type: Cigarette Cigarettes Per Day: 7 Years Smoked: 6 e-Cigarette/Vaping Use: Never Used Second Hand Smoke Exposure: Yes Advance Directives Date on File: 07/15/20 service: No Current occupational status: disabled Current occupation: right hand Cognitive needs: Yes (Walker) Hearing needs: No Vision needs: No Female Reproductive History Menstrual Age of Menarche: 12 Assessment & Plan Assessment & Plan (1) Type 2 diabetes mellitus: Code(s): E11.9 - Type 2 diabetes mellitus without complications Qualifiers: Diabetes mellitus vermin exterminator insulin use: with vermin exterminator use Diabetes mellitus complication status: with hyperglycemia Qualified Code(s): E11.65 - Type 2 diabetes mellitus with hyperglycemia; Z79.4 - 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 The patient met all learning objectives and was able to verbalize understanding and provide teach back of education topics discussed . The patient was provided with the opportunity to ask questions and all questions were answered. Patient Assessment Assess patient education level/literacy/barriers, patient's A1c on 11/15/2024 7%, down from 10.7% in July 2024 At this time patient is not interested in starting on Liza 3+ sensor Patient is no longer taking rapid acting insulin Reports taking Tresiba 40 units daily Ozempic 0.5 mg weekly, patient reports she has terrible now weight which she attributes to diabetes medication taking away her appetite Patient reported as today's visit she now wants to gain weight What is Diabetes? Pathophysiology How the body produces and uses insulin Identify type of DM Risk factors Signs of Diabetes Brief overview of Diabetes Management Monitoring blood sugar Following a meal plan Regular exercise Maintaining a healthy weight Taking medication as needed Members of the care team (PCP, RN, MA, RD, CDE, high energy forming equipment operator) Blood glucose monitoring When/how often to test Target blood sugar ranges Introduction to Nutrition Importance of healthy diet in managing DM Diet is personalized to individual preference Review patient?s regular diet/food preferences Who prepares meals/does food shopping/ Dining out?/ Barriers? How diet effects glucose Eating 3 balanced meals a day with small, healthy snacks between meals Review food groups Carbohydrates: What is a carbohydrate/Which food/food groups are considered carbohydrates Effect of carbohydrates on blood glucose Portion sizes Reading food labels Basic carb counting (if applicable per nursing assessment) Plate method Meal planning Recommendations: Follow plate method, consistent carbs and read nutritional labels. Educational Materials: The patient was provided with the following written educational materials: Planning Healthy Meals Handout Patient Response to instructions: Comprehension of Instructions: Fair Readiness to make changes: Contemplation How confident they feel about making changes: Positive Portions of this note were created using voice recognition software, please excuse any words or phrases that may have been misinterpreted. Patient Instructions: Include regular daily activity. ADA recommends 30 minutes of exercise 5 days a week. Weight loss talk to PCP or Timber Selector before starting new plan. Test blood sugar as directed; Fasting and 2hpp largest meal. Watch trends in results. Utilize results and to assess how food, physical activity and medications affect blood sugar results. Bring glucometer or CGM to next visit. Be knowledgeable about diabetes medication, its action, side effects, efficacy, toxicity, prescribed dosage, appropriate timing and frequency of administration, effect of missed and delayed doses and instructions for storage, travel and safety. Problem solving techniques to monitor hypo/hyperglycemia episodes and treatments. Reduce risk reduction behaviors, smoking cessation, regular eye, foot and dental examinations. Patient will follow-up as needed Coding Level of Care Code Est Pt Level 1 (29882) Diagnoses Type 2 diabetes mellitus with hyperglycemia, with long-term current use of insulin E11.65; Z79.4 Diabetes mellitus vermin exterminator insulin use: with longterm use Diabetes mellitus complication status: with hyperglycemia
--- OUTSIDE RECORDS SUMMARY | 2024-12-18 16:29 | XMS_ITS | Encounter Summary ---
Author Organization [facility] Address [address] [place] [address] Care Team Providers Care Mechanical Test Technician Name Role Phone Becca Sprague Primary Care Provider [phone] Encounter Details Date Type Department Care Team (Late st Contact Info) Description 10/09/2024 Orders Only [facility] Interventional Radiology [address] [place] [address] Loida Marshall, PA [address] [place] [address] Social History Tobacco Use Types Packs/Day Years [...] on filedocumented in this encounter Care Teams Mechanical Test Technician Relationship Specialty Start Date End Date Becca Sprague [address] [place] [address] [place] [address] PCP - General Internal Medicine 08/16/19 documented as of this encounter
--- OUTSIDE RECORDS SUMMARY | 2024-12-18 16:29 | XMS_ITS | Clinical Summary ---
Author Organization [facility] Address [address] [place] [address] Care Team Providers Care Data Analysis Manager Name Role Phone Becca Sprague Primary Care Provider [phone] Allergies Active Allergy Reactions Criticality Noted Date [...] Department Care Team Description 11/14/2024 Orders Only [facility] Liver Transplant Services [address] [place] [address] Amber Islas MD 11/08/2024 Telephone [facility] Transplant Department [address] [place] [address] [facility] 11/07/2024 Telephone [facility] Transplant Department [address] [place] [address] [facility] 10/12/2024 Orders Only [facility] Interventional Radiology [address] [place] [address]76 Loida Marshall PA Autoimmune hepatitis (HCC) (Primary Dx) 10/09/2024 11:00 AM EDT Follow-Up [facility] Liver Transplant Services [address] [place] [address]104 Amber Islas MD Chronic autoimmune hepatitis (HCC) (Primary Dx) 10/09/2024 Orders Only [facility] Interventional Radiology [address] [place] [address] Loida Marshall PA from Last 3 Months [...] Screening Completed 09/15/2023 Procedures * Due to [place] spotflux law, this organization might not be sharing [...] to Health Maintenance Results * Due to [place] spotflux law, this organization might not be sharing negative HIV tests. * (ABNORMAL) CBC Auto Differential (10/09/2024 11:53 AM EDT) WBC 3.4(L) 3.8 - 10.8 10*3/uL 10/09/2024 12:08 PM EDT [facility] RBC 3.91 3.80 - 5.10 10*6/uL 10/09/2024 12:08 PM EDT [facility] Hemoglobin 11.6(L) 11.7 - 15.5 g/dL 10/09/2024 12:08 PM EDT [facility] Hematocrit 34.4(L) 35.0 - 45.0 % 10/09/2024 12:08 PM EDT [facility] MCV 88.0 80.0 - 100.0 fL 10/09/2024 12:08 PM EDT [facility] MCH 29.7 27.0 - 33.0 pg 10/09/2024 12:08 PM EDT [facility] MCHC 33.7 32.0 - 36.0 g/dL 10/09/2024 12:08 PM EDT [facility] RDW 12.8 11.0 - 15.0 % 10/09/2024 12:08 PM EDT [facility] Platelets 201 140 - 400 10*3/uL 10/09/2024 12:08 PM EDT [facility] MPV 8.8 7.5 - 12.5 fL 10/09/2024 12:08 PM EDT [facility] Neutrophil % 48.3 % 10/09/2024 12:08 PM EDT [facility] Immature Grans % 0.0 0.0 - 0.9 % 10/09/2024 12:08 PM EDT [facility] Lymphocyte % 44.4 % 10/09/2024 12:08 PM EDT [facility] Monocyte % 6.1 % 10/09/2024 12:08 PM EDT [facility] Eosinophil % 0.6 % 10/09/2024 12:08 PM EDT [facility] Basophil % 0.6 % 10/09/2024 12:08 PM EDT [facility] Neutrophil # 1.65 1.50 - 7.80 10*3/uL 10/09/2024 12:08 PM EDT [facility] Immature Grans # <0.03 <=0.03 10*3/uL 10/09/2024 12:08 PM EDT [facility] Lymphocyte # 1.50 0.85 - 3.90 10*3/uL 10/09/2024 12:08 PM EDT [facility] Monocyte # 0.20 0.20 - 0.95 10*3/uL 10/09/2024 12:08 PM EDT [facility] Eosinophil # <0.03 0.02 - 0.50 10*3/uL 10/09/2024 12:08 PM EDT [facility] Basophil # <0.03 0.00 - 0.20 10*3/uL 10/09/2024 12:08 PM EDT [facility] nRBC % 0.0 /100 WBCs 10/09/2024 12:08 PM EDT [facility] nRBC # <0.01 <0.01 10*3/uL 10/09/2024 12:08 PM EDT [facility] Blood Structure of peripheral vein / Unknown Venipuncture / Unknown 10/09/2024 11:53 AM EDT 10/09/2024 12:02 PM EDT us Amber Islas MD LAB BLOOD ORDERABLES Final Resul t [facility] [address] [place] [address], * (ABNORMAL) Vitamin A (Retinol) (10/09/2024 11:53 AM EDT) Vitamin A (Retinol) 30(L) 38 - 98 mcg/dL 10/12/2024 3:20 PM EDT [facility] ([facility]) Comment: Vitamin supplementation within 24 hours prior to blood draw may affect the accuracy of the results. This test was developed and its analytical performance characteristics have been determined by [employer] [place], [place]. It has not been cleared or approved by the U.S. Food and Drug Administration. This assay has been validated pursuant to the CLIA regulations and is used for clinical purposes. Blood Structure of peripheral vein / Unknown Venipuncture / Unknown 10/09/2024 11:53 AM EDT 10/09/2024 11:59 AM EDT De[facility] ([facility]) - 10/12/2024 3:20 PM EDT [facility] Received Date:[id number] Amber Islas MD LAB BLOOD ORDERABLES Final Resul t [facility] ([place]) [address] [place], [place] , [place] * (ABNORMAL) Vitamin D, 25-Hydroxy, Total, Immunoassay (10/09/2024 11:53 AM EDT) [facility] Signature Calcidiol+ercalc idiol 25(L) 30 - 100 ng/mL 10/09/2024 10:36 PM EDT [employer] [facility] Comment: Vitamin D Status 25-OH Vitamin D: Deficiency: <20 ng/mL Insufficiency: 20 - 29 ng/mL Optimal: > or = 30 ng/mL For 25-OH Vitamin D testing on patients on D2-supplementation and patients for whom quantitation of D2 and D3 fractions is required, the QuestAssureD(TM) 25-OH VIT D, (D2,D3), LC/MS/MS is recommended: order code [id number] (patients >2yrs). See Note 1 Note 1 For additional information, please refer to http://education.[employer]/faq/WAP050 (This link is being provided for informational/ educational purposes only.) Blood Structure of peripheral vein / Unknown Venipuncture / Unknown 10/09/2024 11:53 AM EDT 10/09/2024 12:01 PM EDT De[facility] - 10/09/2024 10:36 PM EDT [facility] Received Date:[id number] us Amber Islas MD LAB BLOOD ORDERABLES Final Resul t [facility] [address] [place] [address] 3rd Floor, [place] [address], [place] [phone] [employer] [facility] [address] [facility] [address] Floor, [place] [address], [place] [phone] * (ABNORMAL) Comprehensive Metabolic Panel (10/09/2024 11:53 AM EDT) NA 138 135 - 145 mmol/L 10/09/2024 12:41 PM EDT [facility] K 4.0 3.5 - 5.3 mmol/L 10/09/2024 12:41 PM EDT [facility] Cl 103 98 - 107 mmol/L 10/09/2024 12:41 PM EDT [facility] CO2 27 22 - 32 mmol/L 10/09/2024 12:41 PM EDT [facility] Anion Gap 8 5 - 15 10/09/2024 12:41 PM EDT [facility] Glucose 157(H) 65 - 99 mg/dL 10/09/2024 12:41 PM EDT [facility] Creatinine 0.74 0.50 - 1.20 mg/dL 10/09/2024 12:41 PM EDT [facility] Calcium 9.3 8.6 - 10.5 mg/dL 10/09/2024 12:41 PM EDT [facility] Total Protein 8.1(H) 6.0 - 8.0 g/dL 10/09/2024 12:41 PM EDT [facility] Albumin 4.2 3.5 - 5.2 g/dL 10/09/2024 12:41 PM EDT [facility] Bilirubin, Total 0.4 0.2 - 1.2 mg/dL 10/09/2024 12:41 PM EDT [facility] Alkaline Phosphatase 97 35 - 129 U/L 10/09/2024 12:41 PM EDT [facility] AST 20 10 - 40 U/L 10/09/2024 12:41 PM EDT [facility] ALT 17 10 - 40 U/L 10/09/2024 12:41 PM EDT [facility] BUN 19 7 - 23 mg/dL 10/09/2024 12:41 PM EDT [facility] eGFR >90 >=60 mL/min/1. 73m2 10/09/2024 12:41 PM EDT [facility] Comment:The estimated glomer ular [...] - 4.2 g/dL 10/09/2024 12:41 PM EDT [facility] A/G Ratio 1.1(L) 1.5 - 3.0 10/09/2024 12:41 PM EDT [facility] Blood Structure of peripheral vein / Unknown Venipuncture / Unknown 10/09/2024 11:53 AM EDT 10/09/2024 12:10 PM EDT us Amber Islas MD LAB BLOOD ORDERABLES Final Resul t [facility] [address] [place] [address], * Hepatitis C Antibody w/Reflex to PCR (09/15/2023 3:48 PM EDT) Hepatitis C Antibody NON-REACT MICHEAL NON-REACT MICHEAL 09/15/2023 10:45 PM EDT [employer] Comment: HCV antibody was non-reactive. There is no laboratory evidence of HCV infection. In most cases, no further action is required. However, if recent HCV exposure is suspected, a test for HCV RNA (test code 02727) is suggested. For additional information please refer to http://education.[employer]/faq/XKB64a0 (This link is being provided for informational/ educational purposes only.) Blood Structure of peripheral vein / Unknown Venipuncture / Unknown 09/15/2023 3:48 PM EDT 09/15/2023 3:48 PM EDT Narrative [facility] - 09/15/2023 10:45 PM EDT [facility] Received Date: Amber Islas MD LAB BLOOD ORDERABLES Final Resul t [facility] [address] [facility] 3rd Floor, [place] [address], [employer] [facility] [address] [facility] [address], [place] [address], from Last 3 Months or Most Recently Relevant to Health Maintenance Insurance [facility] [place] [address] Advance Directives Healthcare Agents on File Name Relationship Healthcare Agent Relationsdc p Communication Milena Avila Daughter Alternate Health Care Age nt Care Teams Data Analysis Manager Relationship Specialty Start Date End Date Becca Sprague [address] [place] [address] [place] [address] PCP - General Internal Medicine 08/16/19
--- OUTSIDE RECORDS SUMMARY | 2024-12-18 16:30 | XMS_ITS | Patient Health Record ---
Author Organization [facility] Address [address] [place] [address] Care Team Providers Care Local Bulk Driver Name Role Phone Becca Sprague Primary Care Provider UnavailEsdras Cristobal Unavailable [phone] Allergies Allergen (clinical drug ingredient) Drug/Non Drug [...] Status Risk Notes Problem Irritable bowel syndrome (15922926) Irritable bowel syndrome (564.1) Active confirmed Problem Dysphagia (51146918) Dysphagia (787.20) Active confirmed Problem Gastroesophageal reflux disease (229426568) GERD (gastroesophag eal reflux disease) (530.81) Active confirmed Problem Esophageal spasm (36694599) Esophageal spasm (530.5) Active confirmed Problem Irritable bowel syndrome (67248059) IBS (irritable bowel syndrome) (564.1) Active confirmed Plan Of Treatment No Information Insurance Providers Payer Name Payer Address Payer Phone Subscriber Number Group Number Insured Name Patient Relationship to Insured Coverage Start Date Coverage End Date MEDICARE OF [place] [address] [place] [id number] [id number] DIEGO FORD Self - patient is the insured MEDICAID OF [facility] [address] [place] [phone] [id number] DIEGO FORD Self - patient is the [...] underlying colitis anxiety depression migranes hypothyroidism Denies DC,CVA,Lung disease,renal disease diverticulosis and internal hemorrhoids seen [...]
--- OUTSIDE RECORDS SUMMARY | 2024-12-18 16:30 | XMS_ITS | Clinical Summary ---
Author Organization [employer] Address [address] [facility] [address] [place] [address] Care Team Providers Care Expense Analyst Name Role Phone Unavailable Primary Care Provider [...] Description 01/03/2025 2:00 PM EDT Office Visit [facility] ADULT DENTAL [address] [place] [address] Ezra Cortezsa Health Maintenance Due Date Last [...] Most Recently Relevant to Health Maintenance Insurance [facility] MEDICAID STAND ADULT
== END 2024-12-18 16:12 | disposition home or self-care (01) ==
LOC: HO.ENCR 13:26
PROVIDERS: PCP Internal Medicine; Visit Provider Registered Nurse Diabetes Educator
DX: E11.65 Type 2 diabetes mellitus with hyperglycemia (principal); Z79.4 Long term (current) use of insulin

== ENCOUNTER → 2024-12-18 13:25 | Outpatient (BNVA) | payer MEDICARE, MEDICAID, SELFPAY | PROVIDERS: PCP Internal Medicine; Visit Provider Registered Nurse Diabetes Educator | DX: E11.65 Type 2 diabetes mellitus with hyperglycemia (principal); Z79.4 Long term (current) use of insulin | CPT/HCPCS: 99211 ==

== ENCOUNTER 2024-12-25 07:35 | Day surgery (SDC) | payer MEDICARE, MEDICAID, SELFPAY ==
--- OUTSIDE RECORDS SUMMARY | 2024-12-20 16:41 | XMS_ITS | Clinical Summary ---
Author Organization [employer] Address [address] [facility] [address] [place] [address] Care Team Providers Care Airport Clerk Name Role Phone Unavailable Primary Care [...] Description 01/03/2025 2:00 PM EDT Office Visit [facility] ADULT DENTAL [address] [place] [address] Ezra Cortezsa Health Maintenance Due Date Last [...] Most Recently Relevant to Health Maintenance Insurance [facility] MEDICAID STAND ADULT
--- OUTSIDE RECORDS SUMMARY | 2024-12-20 16:41 | XMS_ITS | Encounter Summary ---
Author Organization [facility] Address [address] [place] [address] Care Team Providers Care Veneer Department Manager Name Role Phone Becca Sprague Primary Care Provider Encounter Details Date Type Department Care Team (Late st Contact Info) Description 10/09/2024 Orders Only [facility] Interventional Radiology [address] [place] [address] Loida Marshall, PA [address] [place] [address] Social History Tobacco Use Types Packs/Day Years [...] on filedocumented in this encounter Care Teams Veneer Department Manager Relationship Specialty Start Date End Date Becca Sprague [address] [place] [address] [place] [address] PCP - General Internal Medicine 08/16/19 documented as of this encounter
--- OUTSIDE RECORDS SUMMARY | 2024-12-20 16:41 | XMS_ITS | Clinical Summary ---
Author Organization [facility] Address [address] [place] [address] Care Team Providers Care Division Operations Specialist Name Role Phone Becca Sprague Primary Care Provider [phone] Allergies Active Allergy Reactions Criticality Noted Date [...] Department Care Team Description 11/14/2024 Orders Only [facility] Liver Transplant Services [address] [place] [address] Amber Islas MD 11/08/2024 Telephone [facility] Transplant Department [address] [place] [address] [facility] 11/07/2024 Telephone [facility] Transplant Department [address] [place] [address] [facility] 10/12/2024 Orders Only [facility] Interventional Radiology [address] [place] [address] Loida Marshall PA Autoimmune hepatitis (HCC) (Primary Dx) 10/09/2024 11:00 AM EDT Follow-Up [facility] Liver Transplant Services [address] [place] [address] Amber Islas MD Chronic autoimmune hepatitis (HCC) (Primary Dx) 10/09/2024 Orders Only [facility] Interventional Radiology [address] [place] [address] Loida Marshall PA from Last 3 Months [...] Screening Completed 09/15/2023 Procedures * Due to [place] TE2 law, this organization might not be sharing [...] Health Maintenance Results * Due to [place] TE2 law, this organization might not be sharing negative HIV tests. * (ABNORMAL) CBC Auto Differential (10/09/2024 11:53 AM EDT) WBC 3.4(L) 3.8 - 10.8 10*3/uL 10/09/2024 12:08 PM EDT [facility] RBC 3.91 3.80 - 5.10 10*6/uL 10/09/2024 12:08 PM EDT [facility] Hemoglobin 11.6(L) 11.7 - 15.5 g/dL 10/09/2024 12:08 PM EDT [facility] Hematocrit 34.4(L) 35.0 - 45.0 % 10/09/2024 12:08 PM EDT [facility] MCV 88.0 80.0 - 100.0 fL 10/09/2024 12:08 PM EDT [facility] MCH 29.7 27.0 - 33.0 pg 10/09/2024 12:08 PM EDT [facility] MCHC 33.7 32.0 - 36.0 g/dL 10/09/2024 12:08 PM EDT [facility] RDW 12.8 11.0 - 15.0 % 10/09/2024 12:08 PM EDT [facility] Platelets 201 140 - 400 10*3/uL 10/09/2024 12:08 PM EDT [facility] MPV 8.8 7.5 - 12.5 fL 10/09/2024 12:08 PM EDT [facility] Neutrophil % 48.3 % 10/09/2024 12:08 PM EDT [facility] Immature Grans % 0.0 0.0 - 0.9 % 10/09/2024 12:08 PM EDT [facility] Lymphocyte % 44.4 % 10/09/2024 12:08 PM EDT [facility] Monocyte % 6.1 % 10/09/2024 12:08 PM EDT [facility] Eosinophil % 0.6 % 10/09/2024 12:08 PM EDT [facility] Basophil % 0.6 % 10/09/2024 12:08 PM EDT [facility] Neutrophil # 1.65 1.50 - 7.80 10*3/uL 10/09/2024 12:08 PM EDT [facility] Immature Grans # <0.03 <=0.03 10*3/uL 10/09/2024 12:08 PM EDT [facility] Lymphocyte # 1.50 0.85 - 3.90 10*3/uL 10/09/2024 12:08 PM EDT [facility] Monocyte # 0.20 0.20 - 0.95 10*3/uL 10/09/2024 12:08 PM EDT [facility] Eosinophil # <0.03 0.02 - 0.50 10*3/uL 10/09/2024 12:08 PM EDT [facility] Basophil # <0.03 0.00 - 0.20 10*3/uL 10/09/2024 12:08 PM EDT [facility] nRBC % 0.0 /100 WBCs 10/09/2024 12:08 PM EDT [facility] nRBC # <0.01 <0.01 10*3/uL 10/09/2024 12:08 PM EDT [facility] Blood Structure of peripheral vein / Unknown Venipuncture / Unknown 10/09/2024 11:53 AM EDT 10/09/2024 12:02 PM EDT us Amber Islas MD LAB BLOOD ORDERABLES Final Resul t [facility] [address] [place] [address], * (ABNORMAL) Vitamin A (Retinol) (10/09/2024 11:53 AM EDT) Vitamin A (Retinol) 30(L) 38 - 98 mcg/dL 10/12/2024 3:20 PM EDT [facility] ([facility]) Comment: Vitamin supplementation within 24 hours prior to blood draw may affect the accuracy of the results. This test was developed and its analytical performance characteristics have been determined by [facility] [place], [place]. It has not been cleared or approved by the U.S. Food and Drug Administration. This assay has been validated pursuant to the CLIA regulations and is used for clinical purposes. Blood Structure of peripheral vein / Unknown Venipuncture / Unknown 10/09/2024 11:53 AM EDT 10/09/2024 11:59 AM EDT [facility] - 10/12/2024 3:20 PM EDT [facility] Received Date:[id number] Amber Islas MD LAB BLOOD ORDERABLES Final Resul t [facility]) [address] [place], [place] , [place] * (ABNORMAL) Vitamin D, 25-Hydroxy, Total, Immunoassay (10/09/2024 11:53 AM EDT) [facility] Signature Calcidiol+ercalc idiol 25(L) 30 - 100 ng/mL 10/09/2024 10:36 PM EDT [facility] Comment: Vitamin D Status 25-OH Vitamin D: Deficiency: <20 ng/mL Insufficiency: 20 - 29 ng/mL Optimal: > or = 30 ng/mL For 25-OH Vitamin D testing on patients on D2-supplementation and patients for whom quantitation of D2 and D3 fractions is required, the QuestAssureD(TM) 25-OH VIT D, (D2,D3), LC/MS/MS is recommended: order code [id number] (patients >2yrs). See Note 1 Note 1 For additional information, please refer to http://education.Citizenside.Appforma/faq/CSU168 (This link is being provided for informational/ educational purposes only.) Blood Structure of peripheral vein / Unknown Venipuncture / Unknown 10/09/2024 11:53 AM EDT 10/09/2024 12:01 PM EDT [facility] - 10/09/2024 10:36 PM EDT [facility] Received Date:[id number] us Amber Islas MD LAB BLOOD ORDERABLES Final Resul t [facility] [address] [place] [address] [address] Floor, [place] [address], [place] [phone] [facility] [address] [address], [place] [address], [place] [phone] * (ABNORMAL) Comprehensive Metabolic Panel (10/09/2024 11:53 AM EDT) NA 138 135 - 145 mmol/L 10/09/2024 12:41 PM EDT [facility] K 4.0 3.5 - 5.3 mmol/L 10/09/2024 12:41 PM EDT [facility] Cl 103 98 - 107 mmol/L 10/09/2024 12:41 PM EDT [facility] CO2 27 22 - 32 mmol/L 10/09/2024 12:41 PM EDT [facility] Anion Gap 8 5 - 15 10/09/2024 12:41 PM EDT [facility] Glucose 157(H) 65 - 99 mg/dL 10/09/2024 12:41 PM EDT [facility] Creatinine 0.74 0.50 - 1.20 mg/dL 10/09/2024 12:41 PM EDT [facility] Calcium 9.3 8.6 - 10.5 mg/dL 10/09/2024 12:41 PM EDT [facility] Total Protein 8.1(H) 6.0 - 8.0 g/dL 10/09/2024 12:41 PM EDT [facility] Albumin 4.2 3.5 - 5.2 g/dL 10/09/2024 12:41 PM EDT [facility] Bilirubin, Total 0.4 0.2 - 1.2 mg/dL 10/09/2024 12:41 PM EDT [facility] Alkaline Phosphatase 97 35 - 129 U/L 10/09/2024 12:41 PM EDT [facility] AST 20 10 - 40 U/L 10/09/2024 12:41 PM EDT [facility] ALT 17 10 - 40 U/L 10/09/2024 12:41 PM EDT [facility] BUN 19 7 - 23 mg/dL 10/09/2024 12:41 PM EDT [facility] eGFR >90 >=60 mL/min/1. 73m2 10/09/2024 12:41 PM EDT [facility] Comment:The estimated glomer ular [...] - 4.2 g/dL 10/09/2024 12:41 PM EDT [facility] A/G Ratio 1.1(L) 1.5 - 3.0 10/09/2024 12:41 PM EDT [facility] Blood Structure of peripheral vein / Unknown Venipuncture / Unknown 10/09/2024 11:53 AM EDT 10/09/2024 12:10 PM EDT us Amber Islas MD LAB BLOOD ORDERABLES Final Resul t [facility] [address] [place] [address], * Hepatitis C Antibody w/Reflex to PCR (09/15/2023 3:48 PM EDT) Hepatitis C Antibody NON-REACT MICHEAL NON-REACT MICHEAL 09/15/2023 10:45 PM EDT [facility] Comment: HCV antibody was non-reactive. There is no laboratory evidence of HCV infection. In most cases, no further action is required. However, if recent HCV exposure is suspected, a test for HCV RNA (test code 47833) is suggested. For additional information please refer to http://education.159.com/faq/UJT99o5 (This link is being provided for informational/ educational purposes only.) Blood Structure of peripheral vein / Unknown Venipuncture / Unknown 09/15/2023 3:48 PM EDT 09/15/2023 3:48 PM EDT Narrative [facility] - 09/15/2023 10:45 PM EDT [facility] Received Date: Amber Islas MD LAB BLOOD ORDERABLES Final Resul t [facility] [address] [facility] [address], [place] [address], [facility] [address], [place] [address], from Last 3 Months or Most Recently Relevant to Health Maintenance Insurance [facility] [place] [address] Advance Directives Healthcare Agents on File Name Relationship Healthcare Agent Relationsmt p Communication Milena Avila Daughter Alternate Health Care Age nt Care Teams Division Operations Specialist Relationship Specialty Start Date End Date Becca Sprague [address] [place] [address] [place] [address] PCP - General Internal Medicine 08/16/19
--- OUTSIDE RECORDS SUMMARY | 2024-12-20 16:41 | XMS_ITS | Patient Health Record ---
Author Organization [facility] Address [address] [place] [address] Care Team Providers Care Tail Board Man Name Role Phone Becca Sprague Primary Care Provider UnavailEsdras Cristobal Unavailable [phone] Allergies Allergen (clinical drug ingredient) Drug/Non Drug [...] Status Risk Notes Problem Irritable bowel syndrome (09759183) Irritable bowel syndrome (564.1) Active confirmed Problem Dysphagia (03157583) Dysphagia (787.20) Active confirmed Problem Gastroesophageal reflux disease (019757562) GERD (gastroesophag eal reflux disease) (530.81) Active confirmed Problem Esophageal spasm (20209419) Esophageal spasm (530.5) Active confirmed Problem Irritable bowel syndrome (08075671) IBS (irritable bowel syndrome) (564.1) Active confirmed Plan Of Treatment No Information Insurance Providers Payer Name Payer Address Payer Phone Subscriber Number Group Number Insured Name Patient Relationship to Insured Coverage Start Date Coverage End Date MEDICARE OF [place] [address] [place] [id number] [phone] [id number] DIEGO FORD Self - patient is the insured MEDICAID OF [facility] [address] [place] [phone] [id number] DIEGO FORD Self - patient is the [...] underlying colitis anxiety depression migranes hypothyroidism Denies OK,CVA,Lung disease,renal disease diverticulosis and internal hemorrhoids seen [...]
--- NOTE | 2024-12-24 11:03 | HO.ANESPROP2 ---
Documented by User: Brittany Chang NP 12/24/24 11:03 HPI - Anesthesia Eval Consult details Narrative: 59yo F for Colonoscopy Anesthesia Pre-Procedure Meds Is the patient on any of the following meds?: GLP1/DPP4 PMFSH Active Problems Active Problems: All Active Problems Helicobacter pylori gastritis (Acute) Ascending aorta dilation (Acute) Left hand pain (Acute) Left wrist pain (Acute) Left elbow pain (Acute) Left arm weakness (Acute) Left hand weakness (Acute) Left hand paresthesia (Acute) Pulmonary emphysema (Acute) Left upper arm pain (Acute) Right arm pain (Acute) Dilated cbd, acquired (Acute) Colon wall thickening (Acute) Dyspnea on exertion (Acute) Right shoulder pain (Acute) Plantar fasciitis, left (Acute) Peroneal tendinitis, left leg (Acute) Avulsion fracture of navicular bone of foot (Acute) Pain of right humerus (Acute) Right elbow pain (Acute) Primary osteoarthritis, right shoulder (Acute) Left foot pain (Acute) Anemia (Acute) Multiple allergies (Acute) Osteoarthritis of right knee (Acute) Primary osteoarthritis, right shoulder (Acute) Pain of right scapula (Acute) Right leg pain (Acute) Urge urinary incontinence (Acute) Right knee pain (Acute) Right calf pain (Acute) Mild major depression (Acute) Lumbar degenerative disc disease (Acute) Osteoarthritis of left knee (Acute) H/O arthroscopy of left knee (Acute) Sprain of right knee (Acute) Dilated bile duct (Acute) Osteopenia (Acute) Left knee pain (Acute) Tear of medial meniscus of left knee (Acute) Left knee sprain (Acute) Hyperlipidemia LDL goal <70 (Acute) Autoimmune thyroiditis (Acute) Autoimmune hepatitis (Acute) Generalized pain (Acute) Goiter (Acute) Low back pain (Acute) Seronegative rheumatoid arthritis (Acute) Dyspnea on exertion (Acute) Left wrist pain (Acute) Left hand pain (Acute) Rotator cuff tendonitis (Acute) De Quervain's disease (radial styloid tenosynovitis) (Acute) Hypothyroidism (Acute) Type 2 diabetes mellitus (Acute) Osteoarthritis of hand, left (Acute) Chronic constipation (Acute) Hypoactive bowel sounds (Acute) Hand numbness (Acute) Autoimmune thyroiditis (Acute) Abdominal pain (Acute) Inflammatory arthritis (Acute) Breast mass, right (Acute) Lung cyst (Acute) Bilateral hand numbness (Acute) Neck pain (Acute) Dyslipidemia (Acute) Post-surgical hypothyroidism (Acute) Chronic idiopathic constipation (Acute) Low vitamin D level (Acute) GERD (gastroesophageal reflux disease) (Acute) Fibromyalgia (Acute) Insomnia (Acute) Past Medical History Medical History Pulmonary emphysema Left upper arm pain Right arm pain Hypothyroidism Type 2 diabetes mellitus Osteoarthritis of hand, left Chronic constipation Hypoactive bowel sounds Hand numbness Autoimmune thyroiditis Abdominal pain Inflammatory arthritis Breast mass, right Lung cyst Bilateral hand numbness Neck pain Dyslipidemia Post-surgical hypothyroidism Diabetic polyneuropathy associated with type 2 diabetes mellitus USP (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 Maternal Aunt Breast cancer Brother Essential hypertension Substance abuse Pure hypercholesterolemia Other Mental health problem Family history of problems with anesthesia: No Surgical History Surgical History History of endoscopy Hx of arthroscopy of right knee Hx of arthroscopy of left knee History of liver biopsy Hx of removal of cyst History of hysterectomy History of thyroidectomy, total History of esophagogastroduodenoscopy (EGD) Hx of colonoscopy (1998) History of Problems with Anesthesia: No Social History Social History Household Members: None Housing: House Alcohol intake: never Patient Tobacco Use Status: Former Tobacco user Tobacco use type: Cigarette Cigarettes Per Day: 7 Years Smoked: 6 e-Cigarette/Vaping Use: Never Used Second Hand Smoke Exposure: Yes Advance Directives: No Advance Directives Information Provided: Yes Advance Directives Date on File: 07/15/20 service: No Current occupational status: disabled Current occupation: right hand Cognitive needs: Yes (Walker) Hearing needs: No Vision needs: No Meds Allergies Allergy/AdvReac Type Severity Reaction Status Date / Time gadobutrol (From [facility]) Allergy Severe ANAPHYLAXIS Verified 12/10/24 14:34 hydroxychloroquine Allergy Intermediate rash,facial Verified 12/10/24 14:34 (Plaquenil) swelling levofloxacin (From [facility]) Allergy Intermediate ITCHY RASH Verified 12/10/24 14:34 pregabalin (From [facility]) Allergy Intermediate STOMACH Verified 12/10/24 14:34 UPSET, Swelling tramadol Allergy Intermediate abdominal Verified 12/10/24 14:34 pain azathioprine AdvReac Intermediate Nausea and Verified 12/10/24 14:34 Vomiting insulin aspart (From Novolog AdvReac Intermediate chills, Verified 12/10/24 14:34 U-100 Insulin aspart) shaking, sweating, weakness and tachycardia [id number] Reductase AdvReac Intermediate transamimit Verified 12/10/24 14:34 Inhibitor is Home Medications ?Medication ?Instructions ?Recorded ?Confirmed ?Last Taken ?Type ropinirole 0.25 mg tablet 0.25 mg PO BEDTIME PRN Restless 01/16/24 12/10/24 01/14/24 History Leg(S) Assessment and Plan Assessment Anesthesia Assessment: Chart Reviewed Final Anesthetic Review Family History of Problems with Anesthesia: No History of Problems with Anesthesia: No Documented by User: Alexandra Wilde MD 12/25/24 08:04 [facility] Past Medical History Medical History Pulmonary emphysema Left upper arm pain Right arm pain Hypothyroidism Type 2 diabetes mellitus Osteoarthritis of hand, left Chronic constipation Hypoactive bowel sounds Hand numbness Autoimmune thyroiditis Abdominal pain Inflammatory arthritis Breast mass, right Lung cyst Bilateral hand numbness Neck pain Dyslipidemia Post-surgical hypothyroidism Diabetic polyneuropathy associated with type 2 diabetes mellitus 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 Maternal Aunt Breast cancer Brother Essential hypertension Substance abuse Pure hypercholesterolemia Other Mental health problem Surgical History Surgical History History of endoscopy Hx of arthroscopy of right knee Hx of arthroscopy of left knee History of liver biopsy Hx of removal of cyst History of hysterectomy History of thyroidectomy, total History of esophagogastroduodenoscopy (EGD) Hx of colonoscopy (1998) Social History Social History Household Members: None Housing: House Alcohol intake: never Patient Tobacco Use Status: Former Tobacco user Tobacco use type: Cigarette Cigarettes Per Day: 7 Years Smoked: 6 e-Cigarette/Vaping Use: Never Used Second Hand Smoke Exposure: Yes Advance Directives: No Advance Directives Information Provided: Yes Advance Directives Date on File: 07/15/20 service: No Current occupational status: disabled Current occupation: right hand Cognitive needs: Yes (Walker) Hearing needs: No Vision needs: No Meds Allergies Allergy/AdvReac Type Severity Reaction Status Date / Time gadobutrol (From [facility]) Allergy Severe ANAPHYLAXIS Verified 12/10/24 14:34 hydroxychloroquine Allergy Intermediate rash,facial Verified 12/10/24 14:34 (Plaquenil) swelling levofloxacin (From [facility]QU[facility]) Allergy Intermediate ITCHY RASH Verified 12/10/24 14:34 pregabalin (From [facility]) Allergy Intermediate STOMACH Verified 12/10/24 14:34 UPSET, Swelling tramadol Allergy Intermediate abdominal Verified 12/10/24 14:34 pain azathioprine AdvReac Intermediate Nausea and Verified 12/10/24 14:34 Vomiting insulin aspart (From Novolog AdvReac Intermediate chills, Verified 12/10/24 14:34 U-100 Insulin aspart) shaking, sweating, weakness and tachycardia [id number]-CLW-IuD Reductase AdvReac Intermediate transamimit Verified 12/10/24 14:34 Inhibitor is Home Medications ?Medication ?Instructions ?Recorded ?Confirmed ?Last Taken ?Type ropinirole 0.25 mg tablet 0.25 mg PO BEDTIME PRN Restless 01/16/24 12/10/24 01/14/24 History Leg(S) Exam Airway Mallampati Class: II TM Dist: >3cm Neck ROM: Full Heart: rrr Lungs: cta Assessment and Plan Assessment Anesthesia Assessment: Anesthesia Plan Discussed Final Anesthetic Review NPO: Yes ASA Class: III Final Preanesthetic Review: No Changes in Pt Med Stat, Meds/Allgs Chart Reviewed, Consent Obtained/Reviewed and Anes Risks/Benef Reviewed Patient Risk: Intermediate Procedure Risk: Low Anesthetic Plan Anesthetic Plan: MAC: Disposition: Standard PACU
[2024-12-25 05:27] VITALS: BMI 24.9
[2024-12-25 07:55] VITALS: BP 126/57; PULSE 78; RESP 19; TEMP 36.9; O2SAT 97; BMI 25.7
[2024-12-25] MEDS: Lactated Ringers 1,000 ML 100 ML IVCONT (08:25)
--- NOTE | 2024-12-25 08:54 | MHC.SHP ---
Pre-Procedural Eval Section A - 24 Hr Update-Section A only Date of Service: 12/25/24 The patient is an INPATIENT: No The patient has been examined within 24 hours of the surgical procedure. The History & Physical has been completed within 30 days and I have reviewed it.: Yes Section B - Complete if H&P > 30 days Chief Complaint: Colitis Allergies: Allergies Allergy/AdvReac Type Severity Reaction Status Date / Time gadobutrol (From [facility]) Allergy Severe ANAPHYLAXIS Verified 12/10/24 14:34 hydroxychloroquine Allergy Intermediate rash,facial Verified 12/10/24 14:34 (Plaquenil) swelling levofloxacin (From LEVAQUIN) Allergy Intermediate ITCHY RASH Verified 12/10/24 14:34 pregabalin (From [facility]) Allergy Intermediate STOMACH Verified 12/10/24 14:34 UPSET, Swelling tramadol Allergy Intermediate abdominal Verified 12/10/24 14:34 pain azathioprine AdvReac Intermediate Nausea and Verified 12/10/24 14:34 Vomiting insulin aspart (From Novolog AdvReac Intermediate chills, Verified 12/10/24 14:34 U-100 Insulin aspart) shaking, sweating, weakness and tachycardia Verjquw-BKD-KaO Reductase AdvReac Intermediate transamimit Verified 12/10/24 14:34 Inhibitor is Plan Diagnosis/Plan: Unchanged I have reviewed the history and physical and performed a pertinent physical examination on my patient. No changes have occurred unless specified. Time Spent With Patient Time: Total time managing care of this patient today ____ minutes.
[2024-12-25 09:00] LABS: Glucose, Whole Blood 125 mg/dL (60-115)
[2024-12-25 10:15] VITALS: BP 91/41; PULSE 63; RESP 12; TEMP 36.3; O2SAT 97
--- NOTE | 2024-12-25 10:27 | P.OPN-COLO_ITS ---
Colonoscopy Operative Note Operative Note Date of Service: 12/25/24 Narrative: Procedure: Colonoscopy Indication: Abnormal CT scan - colitis Endoscopist: Cindy Zheng MD Anesthesia Provider: Lazarus Brown CRNA Anesthesia type: MAC Instrument: Olympus [id number]-[id number] Consent: Indication, risks vs benefits, and alternatives were discussed with the patient who gave written informed consent to proceed. EKG, pulse, pulse oximetry and blood pressure were monitored throughout the procedure. Please see anesthesia flowsheet. Procedure: The patient was brought to the procedure room and placed in the left lateral decubitus position. IV medications were administered by the anesthesia provider in attendance. A digital rectal exam was performed which was normal. A distal attachment cap was affixed to the tip of the colonoscope which was then inserted through the anus and advanced through the colon to the cecum at 75 cm,and terminal ileum. Appendiceal orifice and ileocecal valve were identified. Mucosa was carefully examined under high definition white light as the instrument was slowly withdrawn in a retrograde panoramic fashion. Retroflexion was performed in rectum. The procedure was not difficult. There were no immediate obvious complications. The quality of the prep was BBPS: 2+2+3 = adequate Withdrawal time 14 minutes. Limitations: No limitations. Findings: Mucosa: Normal to cecum and terminal ileum. Protruding lesions: * 5 sessile polyp of size 3-8 mm in sigmoid colon. Cold snare polypectomy was performed. The polyps were completely removed and retrieved. * Medium internal hemorrhoids without stigmata of recent bleeding. Excavated lesions: * Moderate diverticulosis of left sided colon. Impression: 1. Normal colon mucosa 2. Total of 5 polyps removed 3. Diverticulosis 4. Internal hemorrhoids Recommendations: - Follow path results. - Repeat colonoscopy in 10 years if polyps are hyperplastic.
[2024-12-25 10:30] VITALS: BP 105/44; PULSE 54; RESP 12; TEMP 36.3; O2SAT 97
== END 2024-12-25 11:25 | disposition home or self-care (01) ==
PROVIDERS: PCP Internal Medicine; Visit Provider Internal Medicine
PROC: 0DJD8ZZ Inspection of Lower Intestinal Tract, Via Natural or Artificial Opening Endoscopic (ICD-10-PCS; CPT 45378; principal; 2024-12-25 09:30)
DX: K63.9 Disease of intestine, unspecified (principal); K63.5 Polyp of colon; K83.8 Other specified diseases of biliary tract; K75.4 Autoimmune hepatitis; K57.30 Diverticulosis of large intestine without perforation or abscess without bleeding; K64.8 Other hemorrhoids; K74.02 Hepatic fibrosis, advanced fibrosis; K59.04 Chronic idiopathic constipation; K21.9 Gastro-esophageal reflux disease without esophagitis; K29.70 Gastritis, unspecified, without bleeding; B96.81 Helicobacter pylori [H. pylori] as the cause of diseases classified elsewhere; A04.8 Other specified bacterial intestinal infections; M79.7 Fibromyalgia; E06.3 Autoimmune thyroiditis; E78.5 Hyperlipidemia, unspecified; J43.9 Emphysema, unspecified; E11.42 Type 2 diabetes mellitus with diabetic polyneuropathy; Z79.4 Long term (current) use of insulin; Z79.899 Other long term (current) drug therapy; Z88.1 Allergy status to other antibiotic agents; Z88.5 Allergy status to narcotic agent; Z88.8 Allergy status to other drugs, medicaments and biological substances; Z91.041 Radiographic dye allergy status; Z98.890 Other specified postprocedural states; Z87.891 Personal history of nicotine dependence
CPT/HCPCS: 45385; 82947; 88305; J2003; J2704

== ENCOUNTER → 2024-12-25 07:35 | Outpatient (BNV) | payer MEDICARE, MEDICAID, SELFPAY | PROVIDERS: PCP Internal Medicine; Visit Provider Internal Medicine | DX: K52.9 Noninfective gastroenteritis and colitis, unspecified (principal); D12.5 Benign neoplasm of sigmoid colon; K57.90 Diverticulosis of intestine, part unspecified, without perforation or abscess without bleeding; K64.8 Other hemorrhoids | CPT/HCPCS: 45385 ==

== ENCOUNTER 2024-12-27 14:43 | Outpatient (AMB) | payer MEDICARE, MEDICAID, SELFPAY ==
--- NOTE | 2024-12-27 14:45 | MHC.OFFVIS ---
Vital Signs 12/27/24 14:46 Height 5 ft 7 in Weight 167 lb 12.348 oz BMI 26.3 BP 120/70 Blood Pressure Location Rt brachial Position Sitting Pulse 61 Pulse Source Pulse Oximeter Pulse Oximetry (%) 98 Oxygen Delivery Method Room Air Intake Visit Reasons: DM Intake Note: Patient present today for Type 2 Diabetes Mellitus Last Diabetic eye exam: 06/27/24 Last Podiatry Visit: Doesn't have one Random Glucose: 121 mg/dl HgA1C: 7.0% 11/15/24 Waste Picker Required: No Accompanied by: Self / Same As Patient Allergies gadobutrol (From GADAVIST) Allergy (Severe, Verified 12/27/24 14:50) ANAPHYLAXIS hydroxychloroquine (Plaquenil) Allergy (Intermediate, Verified 12/27/24 14:50) rash,facial swelling levofloxacin (From LEVAQUIN) Allergy (Intermediate, Verified 12/27/24 14:50) ITCHY RASH pregabalin (From LYRICA) Allergy (Intermediate, Verified 12/27/24 14:50) STOMACH UPSET, Swelling tramadol Allergy (Intermediate, Verified 12/27/24 14:50) abdominal pain azathioprine Adverse Reaction (Intermediate, Verified 12/27/24 14:50) Nausea and Vomiting insulin aspart (From Novolog U-100 Insulin aspart) Adverse Reaction (Intermediate, Verified 12/27/24 14:50) chills, shaking, sweating, weakness and tachycardia Ydtiwby-NRE-HrM Reductase Inhibitor Adverse Reaction (Intermediate, Verified 12/27/24 14:50) transamimitis Medication List - Last Reconciled 12/27/24 by Erin Rayo MD albuterol sulfate 90 mcg/actuation 2 puffs inhalation Q6H PRN 30 days insulin degludec (Tresiba FlexTouch U-200 insulin) 175 units (0.875 mL) subcut BID 90 days levocetirizine 5 mg PO DAILY PRN 30 days levothyroxine 200 mcg PO DAILY 90 days levothyroxine (Levo-T) 25 mcg PO DAILY 90 days loratadine 10 mg PO DAILY 90 days mercaptopurine 50 mg PO DAILY nqsoknfsgq-vwlmiuuer-sacztigoi 10-250-12.5 mg (Talicia) 4 caps (4 x 10-250-12.5 mg) PO TID 14 days pantoprazole 40 mg PO DAILY 30 days ropinirole 0.25 mg PO BEDTIME PRN rosuvastatin 10 mg PO DAILY 90 days semaglutide (Ozempic) 0.4959 mg subcut QWEEK sucralfate (Carafate) 10 mL PO BID 7 days zolpidem 10 mg PO BEDTIME 30 days HPI Comments Details: 59-year-old female with DM type 2 diagnosed 2013 who presents for management of diabetes Last seen September 2024 by Lindsey Michael APRN. In 08/15/2024 at which time Humalog 12 units was added to her dinner meal. This was dropped to 8 units after she had a low. Random Glucose: 121 mg/dl Hemoglobin A1c 7.0% 11/15/24 10.7% 08/15/2024, previous 9.2% 10/17/2024 She was diagnosed with type 2 diabetes Previous medication: She did not tolerate Trulicity due to side effects, Metformin 1000mg bid caused GI upset She felt she had too much weight loss and no appetite with ozempic. She would at times not eat all day Diabetes medications: Tresiba 40 units at bedtime only takes when blood sugar is >160, otherwise skips (has not been receptive to changing this) Previoulsy she was using a formula where she takes her blood sugar divides it by 2 and takes that him on a Tresiba. Has been advised this was not a rational approach for diabetes management. stopped humalog 3 months ago, per patient she informed Lindsey Michael , i dont see this Jardiance 10mg daily : stopped this on her own accord 3 months ago Ozempic 0.5 mg weekly i am taking a break stopped a month ago does not wish to increase because at the 1 mg dosage she had absolutely no appetite No retinopathy last eye exam 06/2024 + Neuropathy:Symptoms reported: + numbness, tingling, cramping in lower extremities. 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 Other specialists: Rhuemotologist, GI Patient is followed by GI for autoimmune hepatitis. [facility] screen Fibrosis-4 (Fib-4) Index for liver fibrosis (calculated on lab work done:10/2023 ) [ 1.18] points Advanced fibrosis excluded Approximate Fibrosis stage Medhat 0-1 *Use with caution in patients <35 or >65 years old, as the score has been shown to be less reliable in these patients. Prior Imaging abdominal ultrasound 2021 LIVER: The right hepatic lobe measures 18.4 cm in length. The liver contour is normal. Parenchymal echogenicity is normal. No focal hepatic lesion. There is no intrahepatic biliary duct dilatation seen. Right hepatic lobe enlargement. No focal lesion seen. 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-3 activity and stage 3-4 fibrosis biopsy 11/2021) Saw CDE November 2024. 2) Hypothyroidism : Being managed by PCP per patient Reports total thyroidectomy over 20 years. Denies biotin use Medications: Blood work from November 2024 showed TSH was the was 0.06, dose of levothyroxine changed from 250 mcg daily to 225 mcg daily. By PCP. Blood work has been ordered by PCP. Family History: mother has thyroid disease Physical exam General: sitting comfortably in no acute distress HEENT: normocephalic/atraumatic, Cardiac: normal heart sounds Pulm: normal breath sounds Laboratory Tests 09/13/24 10/14/24 11/15/24 07:55 19:20 17:20 Hgb 13.5 Hct 38.9 Creatinine Estimated GFR Hgb A1c (Clinic) 7.0 H Triglycerides Cholesterol LDL Cholesterol, Calc HDL Cholesterol TSH 1.76 Urine Creatinine Urine Microalbumin Microalb/Creat Ratio 11/28/24 10:31 Hgb Hct Creatinine 0.64 Estimated GFR > 60 Hgb A1c (Clinic) Triglycerides 54 Cholesterol 134 LDL Cholesterol, Calc 78 HDL Cholesterol 46 TSH 0.06 L Urine Creatinine 197.15 Urine Microalbumin 34.0 Microalb/Creat Ratio 17.2 [facility] Medical History Pulmonary emphysema Left upper arm pain Right arm pain Hypothyroidism Type 2 diabetes mellitus Osteoarthritis of hand, left Chronic constipation Hypoactive bowel sounds Hand numbness Autoimmune thyroiditis Abdominal pain Inflammatory arthritis Breast mass, right Lung cyst Bilateral hand numbness Neck pain Dyslipidemia Post-surgical hypothyroidism Diabetic polyneuropathy associated with type 2 diabetes mellitus 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 Maternal Aunt Breast cancer Brother Essential hypertension Substance abuse Pure hypercholesterolemia Other Mental health problem Social History Household Members: None Housing: House Alcohol intake: never Patient Tobacco Use Status: Former Tobacco user Tobacco use type: Cigarette Cigarettes Per Day: 7 Years Smoked: 6 e-Cigarette/Vaping Use: Never Used Second Hand Smoke Exposure: Yes Advance Directives Date on File: 07/15/20 service: No Current occupational status: disabled Current occupation: right hand Cognitive needs: Yes (Walker) Hearing needs: No Vision needs: No Female Reproductive History Menstrual Age of Menarche: 12 Assessment & Plan Assessment & Plan (1) Type 2 diabetes mellitus: Code(s): E11.9 - Type 2 diabetes mellitus without complications Category: Medical Qualifiers: Diabetes mellitus half-way insulin use: with half-way use Diabetes mellitus complication status: with neurologic complications Diabetes mellitus complication detail: with polyneuropathy Qualified Code(s): E11.42 - Type 2 diabetes mellitus with diabetic polyneuropathy; Z79.4 - 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 A1c 7% October 2024 down from 10.7% in June 2024. Her blood sugars in the morning are high mostly between 130s to 140s. She had 1 episode of 76 today. She has been doing some self management for her diabetes as she has changed to her medications by herself without informing us since last visit. She has stopped taking Jardiance, she is taking a break from the Ozempic, she has stopped taking the Humalog. She also only takes her Tresiba at 40 units depending on what her blood sugars at bedtime. At this time we discussed that she could try coming off the insulin by adding back some of those medications, but patient is not willing to add the medications. At this time I will continue her on the same dose of Tresiba but I told her that she needs to inform us if she is having lows in the morning and we can reduce the Tresiba dosing instead of her taking it inconsistently. Apparently last time she had agreed to go on a Piggybackrstyle Liza 3+ but then she met the educator in November 2024 and denied going on the sensor. Plan: -continue Tresiba 40 units daily, inform us of any lows, if she is having fasting hypoglycemia we will reduce the dose Patient was seeing Dr. López before before she had established with Lindsey Michael APRN. She will follow up in 3 months. The patient had an opportunity to ask questions regarding treatment plan. The patient expressed understanding and agreement with the above treatment plan. The patient is aware they should contact our office by phone for worsening glucose readings or for any low blood sugars which may warrant a change in diabetes medication. Compliance is encouraged with medications and any followup testing/consults which may have been ordered. Plan I spent 30 minutes in reviewing the record, seeing the patient and documenting in the medical record. 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 lancets (Accu-Chek Softclix Lancets) As directed to check blood sugars 2 times daily 100 ea 5RF Changed From insulin degludec (Tresiba FlexTouch U-200 insulin) patient states she takes 175 units BID but will split dose in half based off of blood sugar 175 units (0.875 mL) subcut BID 90 days 157.5 mL 1RF To insulin degludec (Tresiba FlexTouch U-200 insulin) 40 units (0.2 mL) subcut ONCE 18 mL 1RF 90 days Coding Level of Care Code Est Pt Level 4 (80512) Diagnoses Type 2 diabetes mellitus with diabetic polyneuropathy, with long-term current use of insulin E11.42; Z79.4 Diabetes mellitus terminal system operator insulin use: with terminal system operator use Diabetes mellitus complication status: with neurologic complications Diabetes mellitus complication detail: with polyneuropathy Time Spent (min) 30
[2024-12-27 14:46] VITALS: BP 120/70; PULSE 61; O2SAT 98; BMI 26.3
[2024-12-27 14:56] LABS: Glucose, Whole Blood 121 mg/dL (60-115)
--- OUTSIDE RECORDS SUMMARY | 2024-12-27 16:16 | XMS_ITS | Encounter Summary ---
Author Organization [facility] Address [address] [place] [address] Care Team Providers Care Golf Superintendent Name Role Phone Becca Sprague Primary Care Provider [phone] Encounter Details Date Type Department Care Team (Late st Contact Info) Description 10/09/2024 Orders Only [facility] Interventional Radiology [address] [place] [id number] Loida Marshall, PA [address] [place] [address] Social History Tobacco Use Types Packs/Day Years [...] on filedocumented in this encounter Care Teams Golf Superintendent Relationship Specialty Start Date End Date Becca Sprague [address] [place] [address] [place] [address] PCP - General Internal Medicine 08/16/19 documented as of this encounter
--- OUTSIDE RECORDS SUMMARY | 2024-12-27 16:16 | XMS_ITS | Patient Health Record ---
Author Organization [facility] Address [address] [place] [id number] Care Team Providers Care Director Of Rooms Name Role Phone Becca Sprague Primary Care Provider UnavailEsdras Cristobal Unavailable [phone] Allergies Allergen (clinical drug ingredient) Drug/Non Drug [...] Status Risk Notes Problem Irritable bowel syndrome (15415683) Irritable bowel syndrome (564.1) Active confirmed Problem Dysphagia (07981732) Dysphagia (787.20) Active confirmed Problem Gastroesophageal reflux disease (383562644) GERD (gastroesophag eal reflux disease) (530.81) Active confirmed Problem Esophageal spasm (10827645) Esophageal spasm (530.5) Active confirmed Problem Irritable bowel syndrome (04473972) IBS (irritable bowel syndrome) (564.1) Active confirmed Plan Of Treatment No Information Insurance Providers Payer Name Payer Address Payer Phone Subscriber Number Group Number Insured Name Patient Relationship to Insured Coverage Start Date Coverage End Date MEDICARE OF [place] [address] [place] [phone] [id number] DIEGO FORD Self - patient is the insured MEDICAID OF [facility] [address] [place] [phone] [id number] DIEGO FORD Self - patient is the [...] underlying colitis anxiety depression migranes hypothyroidism Denies [place],CVA,Lung disease,renal disease diverticulosis and internal hemorrhoids seen [...]
--- OUTSIDE RECORDS SUMMARY | 2024-12-27 16:16 | XMS_ITS | Clinical Summary ---
Author Organization [facility] Address [address] [place] [address] Care Team Providers Care Rubber Mixer Name Role Phone Becca Sprague Primary Care Provider Allergies Active Allergy Reactions Criticality Noted Date [...] Department Care Team Description 11/14/2024 Orders Only [facility] [address] [place] [id number] Amber Islas MD 11/08/2024 Telephone [facility] Transplant Department [address] [place] [address] [id number] [facility] 11/07/2024 Telephone [facility] Transplant Department [address] [place] [phone] [facility] 10/12/2024 Orders Only [facility] Interventional Radiology [address] [place] [address] [phone] Loida Marshall PA Autoimmune hepatitis (HCC) (Primary Dx) 10/09/2024 11:00 AM EDT Follow-Up [facility] [address] [place] [id number] Amber Islas MD Chronic autoimmune hepatitis (HCC) (Primary Dx) 10/09/2024 Orders Only [facility] Interventional Radiology [address] [place] [address] [phone] Loida Marshall PA from Last 3 Months [...] 09/15/2023 Procedures * Due to [place] [employer] law, this organization might not be sharing [...] Maintenance Results * Due to [place] [employer] law, this organization might not be sharing negative HIV tests. * (ABNORMAL) CBC Auto Differential (10/09/2024 11:53 AM EDT) WBC 3.4(L) 3.8 - 10.8 10*3/uL 10/09/2024 12:08 PM EDT [facility] RBC 3.91 3.80 - 5.10 10*6/uL 10/09/2024 12:08 PM EDT [facility] Hemoglobin 11.6(L) 11.7 - 15.5 g/dL 10/09/2024 12:08 PM EDT [facility] Hematocrit 34.4(L) 35.0 - 45.0 % 10/09/2024 12:08 PM EDT [facility] MCV 88.0 80.0 - 100.0 fL 10/09/2024 12:08 PM EDT [facility] MCH 29.7 27.0 - 33.0 pg 10/09/2024 12:08 PM EDT [facility] MCHC 33.7 32.0 - 36.0 g/dL 10/09/2024 12:08 PM EDT [facility] RDW 12.8 11.0 - 15.0 % 10/09/2024 12:08 PM EDT [facility] Platelets 201 140 - 400 10*3/uL 10/09/2024 12:08 PM EDT [facility] MPV 8.8 7.5 - 12.5 fL 10/09/2024 12:08 PM EDT [facility] Neutrophil % 48.3 % 10/09/2024 12:08 PM EDT [facility] Immature Grans % 0.0 0.0 - 0.9 % 10/09/2024 12:08 PM EDT [facility] Lymphocyte % 44.4 % 10/09/2024 12:08 PM EDT [facility] Monocyte % 6.1 % 10/09/2024 12:08 PM EDT [facility] Eosinophil % 0.6 % 10/09/2024 12:08 PM EDT [facility] Basophil % 0.6 % 10/09/2024 12:08 PM EDT [facility] Neutrophil # 1.65 1.50 - 7.80 10*3/uL 10/09/2024 12:08 PM EDT [facility] Immature Grans # <0.03 <=0.03 10*3/uL 10/09/2024 12:08 PM EDT [facility] Lymphocyte # 1.50 0.85 - 3.90 10*3/uL 10/09/2024 12:08 PM EDT [facility] Monocyte # 0.20 0.20 - 0.95 10*3/uL 10/09/2024 12:08 PM EDT [facility] Eosinophil # <0.03 0.02 - 0.50 10*3/uL 10/09/2024 12:08 PM EDT [facility] Basophil # <0.03 0.00 - 0.20 10*3/uL 10/09/2024 12:08 PM EDT [facility] nRBC % 0.0 /100 WBCs 10/09/2024 12:08 PM EDT [facility] nRBC # <0.01 <0.01 10*3/uL 10/09/2024 12:08 PM EDT [facility] Blood Structure of peripheral vein / Unknown Venipuncture / Unknown 10/09/2024 11:53 AM EDT 10/09/2024 12:02 PM EDT us Amber Islas MD LAB BLOOD ORDERABLES Final Resul t [facility] [address] [place] [address], * (ABNORMAL) Vitamin A (Retinol) (10/09/2024 11:53 AM EDT) Vitamin A (Retinol) 30(L) 38 - 98 mcg/dL 10/12/2024 3:20 PM EDT [facility] ([facility]) Comment: Vitamin supplementation within 24 hours prior to blood draw may affect the accuracy of the results. This test was developed and its analytical performance characteristics have been determined by [employer] [place], [place]. It has not been cleared or approved by the U.S. Food and Drug Administration. This assay has been validated pursuant to the CLIA regulations and is used for clinical purposes. Blood Structure of peripheral vein / Unknown Venipuncture / Unknown 10/09/2024 11:53 AM EDT 10/09/2024 11:59 AM EDT De[facility] ([facility]) - 10/12/2024 3:20 PM EDT [facility] Received Date:[id number] Amber Islas MD LAB BLOOD ORDERABLES Final Resul t [facility] ([facility]) [address] [place], [place] , [place] * (ABNORMAL) Vitamin D, 25-Hydroxy, Total, Immunoassay (10/09/2024 11:53 AM EDT) [facility] Signature Calcidiol+ercalc idiol 25(L) 30 - 100 ng/mL 10/09/2024 10:36 PM EDT [facility] Comment: Vitamin D Status 25-OH Vitamin D: Deficiency: <20 ng/mL Insufficiency: 20 - 29 ng/mL Optimal: > or = 30 ng/mL For 25-OH Vitamin D testing on patients on D2-supplementation and patients for whom quantitation of D2 and D3 fractions is required, the QuestAssureD(TM) 25-OH VIT D, (D2,D3), LC/MS/MS is recommended: order code [id number] (patients >2yrs). See Note 1 Note 1 For additional information, please refer to http://education.Rachio.Kickserv/faq/KUW392 (This link is being provided for informational/ educational purposes only.) Blood Structure of peripheral vein / Unknown Venipuncture / Unknown 10/09/2024 11:53 AM EDT 10/09/2024 12:01 PM EDT De[facility] NORRIS - 10/09/2024 10:36 PM EDT [facility] Received Date:[id number] us Amber Islas MD LAB BLOOD ORDERABLES Final Resul t [facility] LAWTON [address] [place] [address] [address]rd Floor, [place] [address], [place] [phone] [facility] [address] [facility] 3rd Floor, [place] [address], [place] [phone] * (ABNORMAL) Comprehensive Metabolic Panel (10/09/2024 11:53 AM EDT) NA 138 135 - 145 mmol/L 10/09/2024 12:41 PM EDT [facility] K 4.0 3.5 - 5.3 mmol/L 10/09/2024 12:41 PM EDT [facility] Cl 103 98 - 107 mmol/L 10/09/2024 12:41 PM EDT [facility] CO2 27 22 - 32 mmol/L 10/09/2024 12:41 PM EDT [facility] Anion Gap 8 5 - 15 10/09/2024 12:41 PM EDT [facility] Glucose 157(H) 65 - 99 mg/dL 10/09/2024 12:41 PM EDT [facility] Creatinine 0.74 0.50 - 1.20 mg/dL 10/09/2024 12:41 PM EDT [facility] Calcium 9.3 8.6 - 10.5 mg/dL 10/09/2024 12:41 PM EDT [facility] Total Protein 8.1(H) 6.0 - 8.0 g/dL 10/09/2024 12:41 PM EDT [facility] Albumin 4.2 3.5 - 5.2 g/dL 10/09/2024 12:41 PM EDT [facility] Bilirubin, Total 0.4 0.2 - 1.2 mg/dL 10/09/2024 12:41 PM EDT [facility] Alkaline Phosphatase 97 35 - 129 U/L 10/09/2024 12:41 PM EDT [facility] AST 20 10 - 40 U/L 10/09/2024 12:41 PM EDT [facility] ALT 17 10 - 40 U/L 10/09/2024 12:41 PM EDT [facility] BUN 19 7 - 23 mg/dL 10/09/2024 12:41 PM EDT [facility] eGFR >90 >=60 mL/min/1. 73m2 10/09/2024 12:41 PM EDT [facility] Comment:The estimated glomer [...] - 4.2 g/dL 10/09/2024 12:41 PM EDT [facility] A/G Ratio 1.1(L) 1.5 - 3.0 10/09/2024 12:41 PM EDT [facility] Blood Structure of peripheral vein / Unknown Venipuncture / Unknown 10/09/2024 11:53 AM EDT 10/09/2024 12:10 PM EDT us Amber Islas MD LAB BLOOD ORDERABLES Final Resul t [facility] [address] [place] [address], * Hepatitis C Antibody w/Reflex to PCR (09/15/2023 3:48 PM EDT) Hepatitis C Antibody NON-REACT MICHEAL NON-REACT MICHEAL 09/15/2023 10:45 PM EDT [facility] Comment: HCV antibody was non-reactive. There is no laboratory evidence of HCV infection. In most cases, no further action is required. However, if recent HCV exposure is suspected, a test for HCV RNA (test code 02956) is suggested. For additional information please refer to http://education.uFaber/faq/NWU19m8 (This link is being provided for informational/ educational purposes only.) Blood Structure of peripheral vein / Unknown Venipuncture / Unknown 09/15/2023 3:48 PM EDT 09/15/2023 3:48 PM EDT Narrative [facility] - 09/15/2023 10:45 PM EDT [facility] Received Date: Amber Islas MD LAB BLOOD ORDERABLES Final Resul t [facility] [address] [facility] 3rd [address], [place] [address], [facility] [address] [facility] 3rd [address], [place] [address], from Last 3 Months or Most Recently Relevant to Health Maintenance Insurance [facility] [place] [address] Advance Directives Healthcare Agents on File Name Relationship Healthcare Agent Relationsaz p Communication Milena Avila Daughter Alternate Health Care Age nt Care Teams Rubber Mixer Relationship Specialty Start Date End Date Becca Sprague [address] [place] [address] [place] [address] PCP - General Internal Medicine 08/16/19
--- OUTSIDE RECORDS SUMMARY | 2024-12-27 16:16 | XMS_ITS | Clinical Summary ---
Author Organization [employer] Address [address] [facility] [address]t [place] [address] Care Team Providers Care Co Supervisor Grounds And Landscape Name Role Phone Unavailable Primary Care Provider [...] Description 01/03/2025 2:00 PM EDT Office Visit [facility] [address] [place] [address] Ezra Cortezsa Health Maintenance Due Date Last [...] Most Recently Relevant to Health Maintenance Insurance [facility] MEDICAID STAND ADULT
== END 2024-12-27 15:27 | disposition home or self-care (01) ==
LOC: HO.ENCR 14:44
PROVIDERS: PCP Internal Medicine; Visit Provider Student in an Organized Health Care Education/Training Program
DX: E11.42 Type 2 diabetes mellitus with diabetic polyneuropathy (principal); Z79.4 Long term (current) use of insulin
CPT/HCPCS: 99214

== ENCOUNTER → 2024-12-27 14:43 | Outpatient (BNVA) | payer MEDICARE, MEDICAID, SELFPAY | PROVIDERS: PCP Internal Medicine; Visit Provider Student in an Organized Health Care Education/Training Program | DX: E11.42 Type 2 diabetes mellitus with diabetic polyneuropathy (principal); Z79.4 Long term (current) use of insulin | CPT/HCPCS: 82947; 99212 ==

== ENCOUNTER 2024-12-28 14:00 | Outpatient (RCR) | payer MEDICARE, MEDICAID, SELFPAY ==
--- NOTE | 2024-12-03 15:17 | MHC.OT.EP ---
[facility] Office [address] [phone] F: [phone] F: [phone] Occupational Therapy Plan of Care Patient Name: Cece Conley Date of Evaluation: 12/03/24 Diagnosis: L HAND PAIN Pain Location: 3-4/10 RADIATES FROM SF/RF TO MEDIAL ASPECT OF ARM/ ELBOW AT REST 6-7/10 WITH USE/ LIFTING Pain Score: 3-7/10 Pain Scale Used: Numeric (0 - 10) Aggravating Factors: LIFTING Alleviating Factors: RESTING, TYLENOL, HEATING PAD Assessment: MS CONLEY REPORTS A 1.5 MONTH HISTORY OF L ARM NUMBNESS AND WEAKNESS. SHE REPORTS SYMPTOMS BEGAN AFTER A CT SCAN ON 10/14/24. SHE EXPRESSES DIFFICULTIES WITH HEAVY LIFTING AND GENERAL USE OF NON DOMINANT LUE, WHICH PRODUCE NUMBNESS AND TINGLING THROUGH MEDIAL ASPECT OF HER LUE. A (+) FROMENTS TEST WAS PRODUCED WHICH MAY INDICATE ULNAR NERVE IMPAIRMENTS. AN EMG IS PENDING FOR 01/11/25 TO ASSESS POSSIBLE NERVE IMPAIRMENTS. ONGOING SKILLED OT IS WARRANTED TO ADDRESS AREAS MENTIONED BELOW. Frequency and Duration: The patient will be seen 2X/WEEK FOR 4 WEEKS Short Term Goals: IND HEP IND JT PROTECTION STRATEGIES AND ACTIVITY MODIFICATIONS EXPLORE POSITIONING/ ORTHOSIS NEEDS FOR LUE REPORT <3/10 PAIN DURING ADLs AND LIGHT IADLs Office Mover Goals: INCREASE LUE STRENGTH > 30 POUNDS TOLERATE >3 DIFFERENT TEXTURES DURING DESENSIZATION TRAINING >8 MINS TOLERATE LIFTING >10 MINS BIMANUAL USE FOR APPLICATION TOWARDS IADLs Treatment Plan: Therapeutic Exercise Therapeutic Activity Home Exercise Program Splinting Neuro Re-ed Patient Education Desensitization/Sensory Re-ed Edema Control ADL Training Ultrasound NMES Iontophoresis Paraffin Fluidotherapy MHP Cold Packs Joint Mobilization Soft Tissue Mobilization Kinesiotaping Other (see comments) Electronically Signed By: MIREILLE MOLINA OTR/L Please Sign and return to therapist. Thank you once again for your referral.
--- NOTE | 2024-12-28 14:30 | MHC.OT.DC ---
[facility] Office [address] [phone] F: [phone] F: [phone] Occupational Therapy Discharge Note Patient Name: Cece Conley Provider: Becca Newberry Diagnosis: L HAND PAIN Date of Evaluation: 12/03/24 Date of Discharge: 12/28/24 Treatments to Date: 3 Cancellations to Date: 3 No Shows to Date: 1 Discharge Status: Independent with HEP Recommend MD Follow-up Discharge Summary: MS CONLEY INCONSISTENTLY ATTENDED OT RX SESSIONS. SHE CONT TO BE GUARDED THROUGHOUT LUE WITH SUBMAX EFFORT. HAS EMG SCHEDULED FOR 01/15/25. WILL TRANSITION Pt TO A HOME EXERCISE PROGRAM UNTIL EMG IS DONE. MAY NEED TO RETURN BASED ON MD RECOMMENDATIONS. D/C OT SERVICES. Electronically Signed By: MIREILLE MOLINA OTR/L Reviewed/agree with student documentation: N/A Therapist: Please Sign and return to therapist, thank you for your referral.
== END 2024-12-28 14:30 | disposition home or self-care (01) ==
LOC: HO.OT 14:00
PROVIDERS: PCP Internal Medicine; Visit Provider Internal Medicine
DX: M25.522 Pain in left elbow (principal); M25.532 Pain in left wrist; M79.642 Pain in left hand
CPT/HCPCS: 97110; 97140; 97166

== ENCOUNTER 2025-01-10 10:08 | Outpatient (AMB) | payer MEDICARE, MEDICAID, SELFPAY ==
--- NOTE | 2025-01-10 10:14 | MHC.OFFVIS ---
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[place]/thoracic aortic ectasia Consulting Senior Practice Director Required: No Allergies gadobutrol (From GADAVIST) Allergy (Severe, Verified 01/10/25 10:18) ANAPHYLAXIS hydroxychloroquine (Plaquenil) Allergy (Intermediate, Verified 01/10/25 10:18) rash,facial swelling levofloxacin (From LEVAQUIN) Allergy (Intermediate, Verified 01/10/25 10:18) ITCHY RASH pregabalin (From LYRICA) Allergy (Intermediate, Verified 01/10/25 10:18) STOMACH UPSET, Swelling tramadol Allergy (Intermediate, Verified 01/10/25 10:18) abdominal pain azathioprine Adverse Reaction (Intermediate, Verified 01/10/25 10:18) Nausea and Vomiting insulin aspart (From Novolog U-100 Insulin aspart) Adverse Reaction (Intermediate, Verified 01/10/25 10:18) chills, shaking, sweating, weakness and tachycardia Igiviqh-PAB-RtL Reductase Inhibitor Adverse Reaction (Intermediate, Verified 01/10/25 10:18) transamimitis Medication List - Last Reconciled 01/10/25 by Varun De Souza MD albuterol sulfate 90 mcg/actuation 2 puffs inhalation Q6H PRN 30 days blood sugar diagnostic (Accu-Chek Guide test strips) As directed to check blood sugars 2 times daily insulin degludec (Tresiba FlexTouch U-200 insulin) 40 units (0.2 mL) subcut ONCE 90 days lancets (Accu-Chek Softclix Lancets) As directed to check blood sugars 2 times daily levocetirizine 5 mg PO DAILY PRN 30 days levothyroxine 200 mcg PO DAILY 90 days levothyroxine (Levo-T) 25 mcg PO DAILY 90 days loratadine 10 mg PO DAILY 90 days mercaptopurine 50 mg PO DAILY mqurjkrhza-ptqmzvnkm-rkgdhwfna 10-250-12.5 mg (Talicia) 4 caps PO Q8H hfehemvhyv-jwgztohdz-felrvfakb 10-250-12.5 mg (Talicia) 4 caps (4 x 10-250-12.5 mg) PO TID 14 days oxycodone 10 mg PO Q8H PRN 30 days pantoprazole 40 mg PO DAILY 30 days ropinirole 0.25 mg PO BEDTIME PRN rosuvastatin 10 mg PO DAILY 90 days sucralfate (Carafate) 10 mL PO BID 7 days zolpidem 10 mg PO BEDTIME 30 days HPI Comments Details: The patient is a 59-year-old female presenting with chest discomfort and shortness of breath. She reports a sensation similar to soreness or bruising in the chest area, which occurs randomly and is sometimes accompanied by shortness of breath, especially during physical activities such as walking or press tender incendiary grenade. The discomfort can also occur at rest and occasionally wakes her at night. The patient has a history of Type 2 Diabetes Mellitus diagnosed in 2013, for which she is on insulin therapy. She has experienced significant weight loss, attributed to the use of Ozempic, resulting in a reduction from 230 pounds to 160 pounds. The patient also has a thyroid disorder, initially presenting with difficulty swallowing due to thyroid enlargement. There is no history of heart attacks, stents, or pacemakers, but she reports a history of liver scarring and Helicobacter pylori infection. A recent heart ultrasound indicated a slightly enlarged aorta, which may be related to her previous higher body weight. [facility] Medical History Pulmonary emphysema Left upper arm pain Right arm pain Hypothyroidism Type 2 diabetes mellitus Osteoarthritis of hand, left Chronic constipation Hypoactive bowel sounds Hand numbness Autoimmune thyroiditis Abdominal pain Inflammatory arthritis Breast mass, right Lung cyst Bilateral hand numbness Neck pain Dyslipidemia Post-surgical hypothyroidism Diabetic polyneuropathy associated with type 2 diabetes mellitus snf (current) use of insulin Chronic idiopathic constipation Low vitamin D level Weight loss GERD (gastroesophageal reflux disease) Diabetes type 2, uncontrolled Fibromyalgia Insomnia Surgical History History of endoscopy Hx of arthroscopy of right knee Hx of arthroscopy of left knee History of liver biopsy Hx of removal of cyst History of hysterectomy History of thyroidectomy, total History of esophagogastroduodenoscopy (EGD) Hx of colonoscopy (1998) Family History Father Status post liver transplant, biliary anastomotic size mismatch Brother Cardiac arrest Mother No problems noted. Maternal Aunt Breast cancer Brother Essential hypertension Substance abuse Pure hypercholesterolemia Other Mental health problem Social History Household Members: None Housing: House Alcohol intake: never Patient Tobacco Use Status: Former Tobacco user Tobacco use type: Cigarette Cigarettes Per Day: 7 Years Smoked: 6 e-Cigarette/Vaping Use: Never Used Second Hand Smoke Exposure: Yes Advance Directives Date on File: 07/15/20 service: No Current occupational status: disabled Current occupation: right hand Cognitive needs: Yes (Walker) Hearing needs: No Vision needs: No Female Reproductive History Menstrual Age of Menarche: 12 Review of Systems ENT Reports dizziness Card Denies chest pain, Denies chest pain at rest, Denies chest pain with activity, Denies rapid heart rate, Denies pedal edema, Denies edema, Denies leg edema, Denies lightheadedness, Denies palpitations, Reports dyspnea, Denies dyspnea on exertion and Denies orthopnea Resp Denies cough, Reports dyspnea and Denies dyspnea on exertion GI Denies hematochezia and Denies change in stool character Musc Denies abnormal gait, Reports limited range of motion, Reports muscle cramps, Denies muscle weakness, Denies numbness, Denies radiating pain into limb, Denies stiffness and Denies tingling Neuro Denies abnormal gait, Reports dizziness, Denies numbness and Denies tingling Endo Denies palpitations Physical Exam Vital Signs: Last Vital Signs Pulse 63 01/10/25 10:15 BP 90/44 L 01/10/25 10:15 BMI result Body Mass Index 26.1 Const General: comfortable and no acute distress Orientation/consciousness: patient oriented x3 HEENT Other: Unremarkable Head: Yes normal to inspection Neck Neck: Yes normal visual inspection Chest Chest palpation & inspection: normal inspection of the chest Resp Auscultation: clear to auscultation bilaterally Cardio Palpation: normal PMI Heart sounds: S1 normal heart sound present, S2 normal heart sound present, no gallops, no murmurs and no rubs GI Palpation (GI): Soft to palpation Back/Spine/Pelvis Other: unremarkable Skin General skin exam: no rashes or lesions noted Neuro General: patient oriented x3 Extrem General: Yes normal to inspection Psych Mental Status: mental status grossly normal Office Procedures EKG Details: EKG with sinus rhythm at 63/Min; no ischemic changes; [place] [address]-Ecwikkgtfywkmwtth, Complete Assessment & Plan Assessment & Plan (1) Ascending aorta dilation: Code(s): I77.810 - Thoracic aortic ectasia Category: Medical Plan: In the echocardiogram, ascending aortic size 3.7 cm. In a prior chest CTA from 2021, described to have upper normal ascending aortic size. This might be acceptable considering her previous weight which was might higher. Any case, recommend rechecking this in a year or so. If stable, then we can check every few years. We discussed about this today. (2) Precordial chest pain: Code(s): R07.2 - Precordial pain Category: Medical Plan: Sounds atypical but she has had longstanding diabetes. We discussed about getting coronary CTA but she would rather not want anything done with intravenous line as she states she had a bad experience recently. Hence we cannot do a perfusion imaging study either. Start with an ETT. If indeed there is any abnormality, then we will need to readdress. Patient agrees with this plan. (3) Type 2 diabetes mellitus: Code(s): E11.9 - Type 2 diabetes mellitus without complications Category: Medical Qualifiers: Diabetes mellitus long term acute care registered nurse insulin use: with long term acute care registered nurse use Diabetes mellitus complication status: with neurologic complications Diabetes mellitus complication detail: with polyneuropathy Qualified Code(s): E11.42 - Type 2 diabetes mellitus with diabetic polyneuropathy; Z79.4 - snf (current) use of insulin Plan: Most recent hemoglobin A1c is 7%. Prior to this, it has been much higher as much as 12.4% in 2022. Plan Discussion Notes I discussed with the patient the plan to conduct a stress test to evaluate her chest discomfort and shortness of breath. If the stress test is abnormal, a CT scan will be considered. We also reviewed her history of Type 2 Diabetes Mellitus and the impact of her weight loss on her health. The slightly enlarged aorta will be monitored with a repeat ultrasound in one year. I reassured her that the aortic dilation is not currently concerning but will be observed for any changes. Patient was informed and verbally consented to the use of an ambient scribe for clinic note documentation during this visit. Orders: Orders CA stress test Today R07.2 - Precordial pain Patient Instructions: - Schedule and complete the stress test as planned. - Continue current diabetes management and monitor blood sugar levels regularly. Coding Level of Care Code New Pt Level 4 (47252) Diagnoses Ascending aorta dilation I77.810 Precordial chest pain R07.2 Type 2 diabetes mellitus with diabetic polyneuropathy, with long-term current use of insulin E11.42; Z79.4 Diabetes mellitus alf insulin use: with long term acute care registered nurse use Diabetes mellitus complication status: with neurologic complications Diabetes mellitus complication detail: with polyneuropathy CPT Codes EKG - CPT: 47366-Cuacqvanwuenkghbg, Complete ([id number])
[2025-01-10 10:15] VITALS: BP 90/44; PULSE 63; BMI 26.1
--- OUTSIDE RECORDS SUMMARY | 2025-01-10 12:13 | XMS_ITS | Patient Health Record ---
Author Organization [facility] Address [address] [place] [address] Care Team Providers Care Printed Circuit Board Assembler Name Role Phone Becca Sprague Primary Care Provider UnavailEsdras Cristobal Unavailable [phone] Allergies Allergen (clinical drug ingredient) Drug/Non Drug [...] MG 1 capsule Orally Onc e a day; Duration: 30 days 01/12/2012 Active Desonide 0.05 % 1 application to aff ected area Externally Twice a day Active Dicyclomine HCl 10 MG 1-2 capsules Orall y Four times a day as needed for abdominal pain/bloating/discomfort; Duration: 30 days 01/12/2012 Active Atorvastatin Calcium 40 MG 1 tablet Oral ly Once a day Active Immunizations Vaccine Route Administration Date Status Comme nts Flu vaccine no Preserv 3 and > Unknown 01/08/2014 Admin istered Problems Problem Type SNOMED Code ICD Code Onset Dates Problem Status W/U Status Risk Notes Problem Irritable bowel syndrome (24440259) Irritable bowel syndrome (564.1) Active confirmed Problem Dysphagia (95467040) Dysphagia (787.20) Active confirmed Problem Gastroesophageal reflux disease (255408326) GERD (gastroesophag eal reflux disease) (530.81) Active confirmed Problem Esophageal spasm (84319556) Esophageal spasm (530.5) Active confirmed Problem Irritable bowel syndrome (82745954) IBS (irritable bowel syndrome) (564.1) Active confirmed Plan Of Treatment No Information Insurance Providers Payer Name Payer Address Payer Phone Subscriber Number Group Number Insured Name Patient Relationship to Insured Coverage Start Date Coverage End Date MEDICARE OF [place] [address] [place] [id number] DIEGO FORD Self - patient is the insured [facility] [address] [place] [phone] [id number] DIEGO FORD Self - patient is the [...] underlying colitis anxiety depression migranes hypothyroidism Denies HI,CVA,Lung disease,renal disease diverticulosis and internal hemorrhoids seen [...]
--- OUTSIDE RECORDS SUMMARY | 2025-01-10 12:13 | XMS_ITS | Clinical Summary ---
Author Organization [facility] Address [address] [place] [address] Care Team Providers Care Commissioning Specialist Name Role Phone Becca Sprague Primary Care Provider [phone] Allergies Active Allergy Reactions Criticality Noted Date [...] Department Care Team Description 11/14/2024 Orders Only [facility] Liver Transplant Services [address] [place] [address] Amber Islas MD 11/08/2024 Telephone [facility] Transplant Department [address] [place] [address] Kain Cristal 11/07/2024 Telephone [facility] Transplant Department [address] [place] [address] Kain Cristal 10/12/2024 Orders Only [facility] Interventional Radiology [address] [place] [address] Loida Marshall PA Autoimmune hepatitis (HCC) (Primary Dx) from Last 3 Months Social History Tobacco [...] 2024 , 01/15/2021, 02/12/2020, Additional history exists Colon Cancer Screening 10/20/2025 Colonoscopy 10/20/2025 10/21/2015 DTaP,Tdap,and Td Vaccines (2 - Td or Tdap) 05/19/2026 05/19/2016 RSV Vaccine (60+ years old a nd patients) (1 - 1-dose 75+ series) 2040 Hepatitis C Screening Completed 09/15/2023 Procedures * Due to [place] [employer] law, this organization might not be sharing negative HIV tests. Procedure Name Priority Date/Time Associated Diagnosis Comments HEPATITIS C ANTIBODY W/REFLEX TO HCV RNA, QUANTITATIVE PCR Routine 09/15/2023 3:48 PM EDT Chronic autoimmune hepatitis from Last 3 Months or Most Recently Relevant to Health Maintenance Results * Due to [place] [employer] law, this organization might not be sharing negative HIV tests. * Hepatitis C Antibody w/Reflex to PCR (09/15/2023 3:48 PM EDT) Hepatitis C Antibody NON-REACT MICHEAL NON-REACT MICHEAL 09/15/2023 10:45 PM EDT [facility] Comment: HCV antibody was non-reactive. There is no laboratory evidence of HCV infection. In most cases, no further action is required. However, if recent HCV exposure is suspected, a test for HCV RNA (test code 97106) is suggested. For additional information please refer to http://education.RackWare/faq/MUH00d3 (This link is being provided for informational/ educational purposes only.) Blood Structure of peripheral vein / Unknown Venipuncture / Unknown 09/15/2023 3:48 PM EDT 09/15/2023 3:48 PM EDT Narrative [facility] - 09/15/2023 10:45 PM EDT [facility] Received Date: Amber Islas MD LAB BLOOD ORDERABLES Final Resul t NAHEED NORRSI [address] [facility] 3rd [address], [place] [address], [place] [phone] [facility] [address], [place] [address], [place] [phone] from Last 3 Months or Most Recently Relevant to Health Maintenance Insurance [facility] [place] [address] Advance Directives Healthcare Agents on File Name Relationship Healthcare Agent Relationshi p Communication Milena Avila Daughter Alternate Health Care Age nt Care Teams Commissioning Specialist Relationship Specialty Start Date End Date Becca Sprague [address] [place] [address] [place] [address] PCP - General Internal Medicine 08/16/19
--- OUTSIDE RECORDS SUMMARY | 2025-01-10 12:13 | XMS_ITS | Clinical Summary ---
Author Organization [employer] Address [address] [facility] 7t [place] [address] Care Team Providers Care Earth Science Faculty Member Name Role Phone Unavailable Primary Care Provider [...] Mass Index - - Plan of Treatment Health Maintenance Due Date [...] X-Ray: [facility] 11/03/2024 11/03/2023, 01/05 COVID-19 Vaccine (3 - season) 2024 09/13/2020, 08/23/2020 Influenza Vaccine (#1) 2024 2, 01/15/2021, 02/12/2020, Additional history exists Tobacco Screening [...] Most Recently Relevant to Health Maintenance Insurance [facility] MEDICAID STAND ADULT
--- OUTSIDE RECORDS SUMMARY | 2025-01-10 12:13 | XMS_ITS | Encounter Summary ---
Author Organization [facility] Address [address] [place] [address] Care Team Providers Care Jockey'S Agent Name Role Phone Becca Sprague Primary Care Provider [phone] Encounter Details Date Type Department Care Team (Late st Contact Info) Description 10/09/2024 Orders Only [facility] Interventional Radiology [address] [place] [address] Loida Marshall, PA [address] [place] [address] Social History Tobacco Use Types Packs/Day Years [...] on filedocumented in this encounter Care Teams Jockey'S Agent Relationship Specialty Start Date End Date Becca Sprague [address] [place] [address] [place] [address] PCP - General Internal Medicine 08/16/19 documented as of this encounter
== END 2025-01-10 10:45 | disposition home or self-care (01) ==
LOC: HO.HCS 10:09
PROVIDERS: PCP Internal Medicine; Visit Provider Internal Medicine
DX: I77.810 Thoracic aortic ectasia (principal); R07.2 Precordial pain; E11.42 Type 2 diabetes mellitus with diabetic polyneuropathy; Z79.4 Long term (current) use of insulin
CPT/HCPCS: 93010; 99204

== ENCOUNTER → 2025-01-10 10:08 | Outpatient (BNVA) | payer MEDICARE, MEDICAID, SELFPAY | PROVIDERS: PCP Internal Medicine; Visit Provider Internal Medicine | DX: R07.2 Precordial pain (principal); I77.810 Thoracic aortic ectasia; E11.42 Type 2 diabetes mellitus with diabetic polyneuropathy; Z79.4 Long term (current) use of insulin | CPT/HCPCS: 93005; 99202 ==

== ENCOUNTER 2025-01-11 13:51 | Outpatient (REF) | payer MEDICARE, MEDICAID, SELFPAY ==
--- NOTE | 2025-01-11 13:56 | EMG_ITS ---
Chief complaint: Contrast dye IV leak on left forearm, September 2024, with swelling and burning after. She continues to have numbness in her fingers and pain on her forearm. She had EMG many years ago that diagnosed her with left Carpal Tunnel Syndrome and diabetic neuropathy. Reason for referral: Evaluate for proximal median neuropathy from IV infiltration Referred by: Dr. Сергей Newberry Procedure done: Left upper extremity NCS/EMG Precautions and/or limitations: None The limb temperature was monitored continuously and remained between 32-36 degrees C during the performance of the NCS. Nerve Conduction Studies Anti Sensory Summary Table ?Stim Site NR Onset (ms) Norm Onset (ms) Peak (ms) Norm Peak (ms) O-P Amp (?V) Norm O-P Amp Site1 Site2 Delta-0 (ms) Dist (cm) Raimundo (m/s) Norm Raimundo (m/s) Left Median Anti Sensory (2nd Digit) Wrist ? 3.0 3.9 <3.6 30.6 >10 Wrist 2nd Digit 3.0 14.0 47 Left Radial Anti Sensory (Thumb) Forearm ? 1.8 2.4 <3.1 24.5 Forearm Thumb 1.8 0.0 Left Ulnar Anti Sensory (5th Digit) Wrist ? 2.3 3.3 <3.7 15.2 >15.0 Wrist 5th Digit 2.3 14.0 61 Motor Summary Table ?Stim Site NR Onset (ms) Norm Onset (ms) O-P Amp (mV) Norm O-P Amp iAmp (mV) Amp (1st) (%) Site1 Site2 Delta-0 (ms) Dist (cm) Raimundo (m/s) Norm Raimundo (m/s) Left Median Motor (Abd Poll Brev) Wrist ? 4.3 <3.9 8.4 >4.5 10.1 100.0 Elbow Wrist 4.4 20.0 45 >45 Elbow ? 8.7 8.4 10.3 100.0 Left Ulnar Motor (Abd Dig Minimi) Wrist ? 2.8 <3.0 8.2 >5 10.4 100.0 B Elbow Wrist 3.8 18.0 47 >45 B Elbow ? 6.6 7.3 9.4 89.0 A Elbow B Elbow 1.8 10.0 56 >45 A Elbow ? 8.4 7.0 9.2 85.4 EMG ?Side Muscle Nerve Root Ins Act Fibs Psw Amp Dur Poly Recrt Int Pat Comment Left 1stDorInt Ulnar C8-T1 Nml Nml Nml Nml Nml 0 Nml Complete Left Biceps Musculocut C5-6 Nml Nml Nml Nml Nml 0 Nml Complete Left Triceps Radial C6-7-8 Nml Nml Nml Nml Nml 0 Nml Complete Left Deltoid Axillary C5-6 Nml Nml Nml Nml Nml 0 Nml Complete Left PronatorTeres Median C6-7 Nml Nml Nml Nml Nml 0 Nml Complete Left FlexDigSuper Median C7-8 Nml Nml Nml Nml Nml 0 Nml Complete FINDINGS: Left median motor nerve showed prolonged distal latency, normal amplitude and normal conduction velocity. Left median sensory nerve showed prolonged peak latency. All other nerves tested were within normal. Concentric needle EMG was performed in selected muscles of the left upper extremity. Study did not reveal signs of electric abnormalities as shown in the table above. IMPRESSION: 1. This is an abnormal study. 2. There is electrodiagnostic evidence for left moderate-severe median neuropathy at the wrist, consistent with carpal tunnel syndrome. 3. There is no electrodiagnostic evidence for ulnar neuropathy, brachial plexopathy, or cervical radiculopathy. 4. There is no electrodiagnostic evidence for proximal median neuropathy. Thank you for your kind referral. Roula Back MD, RALPH Board Certified, [place] Board of Physical Medicine and Rehabilitation (ABPMR) Board Certified, [place] Board of Electrodiagnostic Medicine (ABEM) CODIN [id number] MTDD
--- OUTSIDE RECORDS SUMMARY | 2025-01-11 16:18 | XMS_ITS | Clinical Summary ---
Author Organization [facility] Address [address] [place] [address] Care Team Providers Care Asbestos Shingle Inspector Name Role Phone Becca Sprague Primary Care Provider [phone] Allergies Active Allergy Reactions Criticality Noted Date [...] Department Care Team Description 11/14/2024 Orders Only [facility] Liver Transplant Services [address] [place] [address] Amber Islas MD 11/08/2024 Telephone [facility] Transplant Department [address] [place] [address] Kain Cristal 11/07/2024 Telephone [facility] Transplant Department [address] [place] [address] Kain Cristal 10/12/2024 Orders Only [facility] Interventional Radiology [address] [place] [address] Loida Marshall PA Autoimmune hepatitis (HCC) (Primary [...] Completed 09/15/2023 Procedures * Due to [place] [employer] law, this organization might not be sharing negative HIV tests. Procedure Name Priority Date/Time Associated Diagnosis Comments HEPATITIS C ANTIBODY W/REFLEX TO HCV RNA, QUANTITATIVE PCR Routine 09/15/2023 3:48 PM EDT Chronic autoimmune hepatitis from Last 3 Months or Most Recently Relevant to Health Maintenance Results * Due to [place] [employer] law, this organization might not be sharing negative HIV tests. * Hepatitis C Antibody w/Reflex to PCR (09/15/2023 3:48 PM EDT) Hepatitis C Antibody NON-REACT MICHEAL NON-REACT MICHEAL 09/15/2023 10:45 PM EDT [facility] Comment: HCV antibody was non-reactive. There is no laboratory evidence of HCV infection. In most cases, no further action is required. However, if recent HCV exposure is suspected, a test for HCV RNA (test code 89051) is suggested. For additional information please refer to http://education.Ubi/faq/JMH33q8 (This link is being provided for informational/ educational purposes only.) Blood Structure of peripheral vein / Unknown Venipuncture / Unknown 09/15/2023 3:48 PM EDT 09/15/2023 3:48 PM EDT Narrative [facility] JR - 09/15/2023 10:45 PM EDT [facility] Received Date: Amber Islas MD LAB BLOOD ORDERABLES Final Resul t NAHEED NORRIS [address] [facility] 3rd Floor, [place] [address], [place] [phone] [facility] [address], [place] [address], [place] [phone] from Last 3 Months or Most Recently Relevant to Health Maintenance Insurance [facility] [place] [address] Advance Directives Healthcare Agents on File Name Relationship Healthcare Agent Relationshi p Communication Milena Avila Daughter Alternate Health Care Age nt Care Teams Asbestos Shingle Inspector Relationship Specialty Start Date End Date Becca Sprague [address] [place] [address] [place] [address] PCP - General Internal Medicine 08/16/19
--- OUTSIDE RECORDS SUMMARY | 2025-01-11 16:18 | XMS_ITS | Encounter Summary ---
Author Organization [facility] Address [address] [place] [address] Care Team Providers Care Hand Patcher Name Role Phone Becca Sprague Primary Care Provider [phone] Encounter Details Date Type Department Care Team (Late st Contact Info) Description 10/09/2024 Orders Only [facility] Interventional Radiology [address] [place] [address] Loida Marshall, PA [address] [place] [address] Social History Tobacco Use Types Packs/Day Years [...] on filedocumented in this encounter Care Teams Hand Patcher Relationship Specialty Start Date End Date Becca Sprague [address] [place] [address] [place] [address] PCP - General Internal Medicine 08/16/19 documented as of this encounter
--- OUTSIDE RECORDS SUMMARY | 2025-01-11 16:18 | XMS_ITS | Patient Health Record ---
Author Organization [facility] Address [address] [place] [address] Care Team Providers Care Anthropometrist Name Role Phone Becca Sprague Primary Care Provider UnavailEsdras Cristobal Unavailable [phone] Allergies Allergen (clinical drug ingredient) Drug/Non Drug [...] Status Risk Notes Problem Irritable bowel syndrome (53130454) Irritable bowel syndrome (564.1) Active confirmed Problem Dysphagia (52527254) Dysphagia (787.20) Active confirmed Problem Gastroesophageal reflux disease (116263531) GERD (gastroesophag eal reflux disease) (530.81) Active confirmed Problem Esophageal spasm (16892890) Esophageal spasm (530.5) Active confirmed Problem Irritable bowel syndrome (59228184) IBS (irritable bowel syndrome) (564.1) Active confirmed Plan Of Treatment No Information Insurance Providers Payer Name Payer Address Payer Phone Subscriber Number Group Number Insured Name Patient Relationship to Insured Coverage Start Date Coverage End Date MEDICARE OF [place] [address] [place] [address] [id number] DIEGO FORD Self - patient is the insured MEDICAID [facility] [address] [place] [phone] [id number] DIEGO FORD Self - patient is the [...] underlying colitis anxiety depression migranes hypothyroidism Denies [place],CVA,Lung disease,renal disease diverticulosis and internal hemorrhoids seen [...]
--- OUTSIDE RECORDS SUMMARY | 2025-01-11 16:18 | XMS_ITS | Clinical Summary ---
Author Organization [employer] Address [address] [facility] 7t [place] [address] Care Team Providers Care Grocery Bagger Name Role Phone Unavailable Primary Care Provider [...]
== END 2025-01-11 13:52 | disposition home or self-care (01) ==
LOC: HO.NEURO 13:51
PROVIDERS: PCP Internal Medicine; Visit Provider Internal Medicine
DX: R20.2 Paresthesia of skin (principal)
CPT/HCPCS: 95886; 95909

== ENCOUNTER → 2025-01-11 13:56 | Outpatient (BNV) | payer MEDICARE, MEDICAID, SELFPAY | PROVIDERS: PCP Internal Medicine; Visit Provider Physical Medicine & Rehabilitation | DX: G56.12 Other lesions of median nerve, left upper limb (principal) | CPT/HCPCS: 95886; 95909 ==

== ENCOUNTER 2025-01-18 14:34 | Outpatient (REF) | payer MEDICARE, MEDICAID, SELFPAY ==
--- NOTE | 2025-01-18 14:55 | PFT_ITS ---
Indication dyspnea Spirometry FEV1 to FVC 69%; FEV1 2.02 L; FVC 2.92 L. no significant response to bronchodilators noted. Lung Volumes Total lung capacity 80% predicted Diffusion Capacity DLCO 87% predicted Methacholine Challenge [] Flow Volume Loops [] MVV 68% predicted Comparison None Interpretation There is an obstructive ventilatory defect consistent with mild to moderate COPD. No significant response to bronchodilators noted. Lung volumes are normal. Diffusing capacity within normal limits. Clinical correlation warranted. MTDD
[2025-01-18 15:40] VITALS: PULSE 61
--- OUTSIDE RECORDS SUMMARY | 2025-01-18 16:23 | XMS_ITS | Encounter Summary ---
Author Organization [facility] Address [address] [place] [address] Care Team Providers Care Strap Buckler Machine Name Role Phone Becca Sprague Primary Care Provider [phone] Encounter Details Date Type Department Care Team (Late st Contact Info) Description 10/09/2024 Orders Only [facility] Interventional Radiology [address] [place] [address] Loida Marshall, PA [address] [place] [address] Social History Tobacco Use Types Packs/Day Years [...] on filedocumented in this encounter Care Teams Strap Buckler Machine Relationship Specialty Start Date End Date Becca Sprague [address] [place] [address] [place] [address] PCP - General Internal Medicine 08/16/19 documented as of this encounter
--- OUTSIDE RECORDS SUMMARY | 2025-01-18 16:23 | XMS_ITS | Patient Health Record ---
Author Organization [facility] Address [address] [place] [address] Care Team Providers Care Bag Filler Machine Operator Name Role Phone Becca Sprague Primary Care Provider UnavailEsdras Cristobal Unavailable [phone] Allergies Allergen (clinical drug ingredient) Drug/Non Drug [...] Status Risk Notes Problem Irritable bowel syndrome (56211842) Irritable bowel syndrome (564.1) Active confirmed Problem Dysphagia (48993168) Dysphagia (787.20) Active confirmed Problem Gastroesophageal reflux disease (512473817) GERD (gastroesophag eal reflux disease) (530.81) Active confirmed Problem Esophageal spasm (82829633) Esophageal spasm (530.5) Active confirmed Problem Irritable bowel syndrome (88615578) IBS (irritable bowel syndrome) (564.1) Active confirmed Plan Of Treatment No Information Insurance Providers Payer Name Payer Address Payer Phone Subscriber Number Group Number Insured Name Patient Relationship to Insured Coverage Start Date Coverage End Date MEDICARE OF [place] [address] [place] [phone] [id number] DIEGO FORD Self - patient is the insured MEDICAID OF [facility] [address] [place] [phone] [id number] DIEGO FORD Self - patient is the [...] underlying colitis anxiety depression migranes hypothyroidism Denies [place],CVA,Lung disease,renal disease diverticulosis and internal hemorrhoids seen [...]
--- OUTSIDE RECORDS SUMMARY | 2025-01-18 16:23 | XMS_ITS | Clinical Summary ---
Author Organization [facility] Address [address] [place] [address] Care Team Providers Care Personnel Analyst Name Role Phone Becca Sprague Primary Care Provider [phone] Allergies Active Allergy Reactions Criticality Noted Date [...] Department Care Team Description 11/14/2024 Orders Only [facility] Liver Transplant Services [address] [place] [address] Amber Islas MD 11/08/2024 Telephone [facility] Transplant Department [address] [place] [address] Cristal Finnegan 11/07/2024 Telephone [facility] Transplant Department [address] [place] [address] Cristal Finnegan from Last 3 Months Social History Tobacco [...] Screening Completed 09/15/2023 Procedures * Due to [place] state law, this organization might not be sharing negative HIV tests. Procedure Name Priority Date/Time Associated Diagnosis Comments HEPATITIS C ANTIBODY W/REFLEX TO HCV RNA, QUANTITATIVE PCR Routine 09/15/2023 3:48 PM EDT Chronic autoimmune hepatitis from Last 3 Months or Most Recently Relevant to Health Maintenance Results * Due to [place] state law, this organization might not be sharing negative HIV tests. * Hepatitis C Antibody w/Reflex to PCR (09/15/2023 3:48 PM EDT) Hepatitis C Antibody NON-REACT MICHEAL NON-REACT MICHEAL 09/15/2023 10:45 PM EDT [facility] Comment: HCV antibody was non-reactive. There is no laboratory evidence of HCV infection. In most cases, no further action is required. However, if recent HCV exposure is suspected, a test for HCV RNA (test code 45567) is suggested. For additional information please refer to http://education.ZINK [employer]/faq/UOD22k7 (This link is being provided for informational/ educational purposes only.) Blood Structure of peripheral vein / Unknown Venipuncture / Unknown 09/15/2023 3:48 PM EDT 09/15/2023 3:48 PM EDT Narrative [facility] - 09/15/2023 10:45 PM EDT [facility] Received Date: Amber Islas MD LAB BLOOD ORDERABLES Final Resul t [facility] [address] [facility] 3rd Floor, [place] [address], [place] [phone] [facility] [address] [facility] 3rd Floor, [place] [address], [place] [phone] from Last 3 Months or Most Recently Relevant to Health Maintenance Insurance [facility] [place] [address] Advance Directives Healthcare Agents on File Name Relationship Healthcare Agent Relationshi p Communication Milena Kochz Daughter Alternate Health Care Age nt Care Teams Personnel Analyst Relationship Specialty Start Date End Date Becca Sprague [address] [facility] [place] [address] PCP - General Internal Medicine 08/16/19
== END 2025-01-18 14:35 | disposition home or self-care (01) ==
LOC: HO.RESP 14:34
PROVIDERS: PCP Internal Medicine; Visit Provider Internal Medicine Pulmonary Disease
DX: R06.00 Dyspnea, unspecified (principal)
CPT/HCPCS: 94060; 94640; 94727; 94729

== ENCOUNTER → 2025-01-18 14:55 | Outpatient (BNV) | payer MEDICARE, MEDICAID, SELFPAY | PROVIDERS: PCP Internal Medicine; Visit Provider Hospitalist | DX: J98.4 Other disorders of lung (principal) | CPT/HCPCS: 94060; 94727; 94729 ==

== ENCOUNTER 2025-02-12 14:42 | Outpatient (REF) | payer MEDICARE, MEDICAID, SELFPAY ==
--- NOTE | ~2025-02-12 | MM_ITS ---
EXAMINATION: MM SCREENING DIGITAL BREAST TOMOSYNTHESIS, BILATERAL CLINICAL INFORMATION: Screening. Asymptomatic. COMPARISON: Mammography: Comparison is made with available priors TECHNIQUE: Digital breast mammography with tomosynthesis is performed in both the craniocaudal and mediolateral oblique views along with computer-aided detection (CAD). FINDINGS: There are scattered areas of fibroglandular density. There are no significant masses, abnormal calcifications, or other abnormalities. MM/MM tomosynthesis screening BI IMPRESSION: No mammographic evidence of malignancy. ASSESSMENT: BI-RADS Category 1: Negative RECOMMENDATION: Routine annual mammography screening. 1 year F/U This examination should not preclude the clinical evaluation of a suspicious palpable abnormality. This patient's information was entered into a reminder system with a target due date for their next mammogram. Electronically signed by: Delfina Patricia DO 02/18/2025 12:10 PM JOVITA
--- OUTSIDE RECORDS SUMMARY | 2025-02-13 12:34 | XMS_ITS | Encounter Summary ---
Author Organization [facility] Address [address] [place] [address] Care Team Providers Care Roofing Contractor Name Role Phone Becca Sprague Primary Care Provider [phone] Encounter Details Date Type Department Care Team (Late st Contact Info) Description 10/09/2024 Orders Only [facility] Interventional Radiology [address] [place] [address] Loida Marshall, PA [address] [place] [address] Social History Tobacco Use Types Packs/Day Years [...] on filedocumented in this encounter Care Teams Roofing Contractor Relationship Specialty Start Date End Date Becca Sprague [address] [place] [address] [place] [address] PCP - General Internal Medicine 08/16/19 documented as of this encounter
--- OUTSIDE RECORDS SUMMARY | 2025-02-13 12:34 | XMS_ITS | Patient Health Record ---
Author Organization [facility] Address [address] [place] [id number] Care Team Providers Care Health Care Manager Name Role Phone Becca Sprague Primary Care Provider UnavailEsdras Cristobal Unavailable [phone] Allergies Allergen (clinical drug ingredient) Drug/Non Drug Allergy documented on EMR Reaction Allergy Type Onset Date Status IV Contrast dye (uncoded) Unknown Allergy Active Reason For Referral No Information Medications Medication SIG (Take, Route, Frequency, Duration) Notes Start Date End Date Status Vitamin D 1000 UNIT Tablet 1 tablet Oral ly Once a day Active Januvia 100 MG Tablet 1 tablet Orally On ce a day Active Levothyroxine Sodium 175 MCG Tablet 1 tablet Orally Once a day Active Gabapentin 300 MG Capsule 2 capsule Orally QHS Active metFORMIN HCl 500 MG Tablet 1 tablet wit h meals Orally Twice a day Active Lantus SoloStar 100 UNIT/ML Solution Pen-injector Subcutaneous Active Omeprazole 20 MG Capsule Delayed Release 1 capsule Orally Once a day; Duration: 30 days 01/12/2012 Active Desonide 0.05 % Ointment 1 application t o affected area Externally Twice a day Active Dicyclomine HCl 10 MG Capsule 1-2 capsules Orally Four times a day as needed for abdominal pain/bloating/discomfort; Duration: 30 days 01/12/2012 Active Atorvastatin Calcium 40 MG Tablet 1 tablet Orally Once a day Active Immunizations Vaccine Route Administration Date Status Comme nts Flu vaccine no Preserv 3 and > Unknown 01/08/2014 Admin istered Social History Social History Additional Details Category Social Info Options Details Miscellaneous: Marital status: Occupation: Home Section Notes: Nonsmoker; no alcohol Nonsmoker; no alcohol Nonsmoker; no alcohol Problems Problem Type SNOMED Code ICD Code Onset Dates Problem Status W/U Status Risk Notes Problem Irritable bowel syndrome (09332111) Irritable bowel syndrome (564.1) Active confirmed Problem Dysphagia (64879531) Dysphagia (787.20) Active confirmed Problem Gastroesophageal reflux disease (714739012) GERD (gastroesophag eal reflux disease) (530.81) Active confirmed Problem Esophageal spasm (67892096) Esophageal spasm (530.5) Active confirmed Problem Irritable bowel syndrome (95627825) IBS (irritable bowel syndrome) (564.1) Active confirmed Plan Of Treatment No Information Insurance Providers Payer Name Payer Address Payer Phone Subscriber Number Group Number Insured Name Patient Relationship to Insured Coverage Start Date Coverage End Date MEDICARE OF [place] [address] [place] [address] [id number] DIEGO FORD Self - patient is the insured MEDICAID OF [facility] [address] [place] [address] [id number] DIEGO FORD Self - patient is the [...] underlying colitis anxiety depression migranes hypothyroidism Denies CA,CVA,Lung disease,renal disease diverticulosis and internal hemorrhoids seen [...]
--- OUTSIDE RECORDS SUMMARY | 2025-02-13 12:34 | XMS_ITS | Clinical Summary ---
Author Organization [employer] Address [address] [place] [address] Care Team Providers Care Mechanical Adjuster Name Role Phone Unavailable Primary Care Provider [...] Years (1 of 1 - PCV) 06/05/2015 RSV Patients and Patients Aged 60 years or older (1 - Risk 50-74 years 1-dose series) 06/05/2015 Zoster Vaccines (1 of 2) 06/05/2015 [...] (2 - Td or Tdap) 05/19/2026 05/19/2016 HIB Vaccines Aged Out No longer eligi [...] Most Recently Relevant to Health Maintenance Insurance [facility] MEDICAID STAND ADULT
--- OUTSIDE RECORDS SUMMARY | 2025-02-13 12:34 | XMS_ITS | Clinical Summary ---
Author Organization [facility] Address [address] [place] [address] Care Team Providers Care Maintenance Worker Swimming Pool Name Role Phone Becca Sprague Primary Care Provider [phone] Allergies Active Allergy Reactions Criticality Noted Date [...] Department Care Team Description 11/14/2024 Orders Only [facility] [address] [place], [place] [id number] Amber Islas MD from Last 3 Months Social History [...] ual Screening 03/28/2024 Influenza Vaccine (#1) 2024 , 01/15/2021, 02/12/2020, Additional history exists COVID-19 Vaccine (3 - 2024-2 6 season) 2024 09/13/2020, 08/23/2020 Colon Cancer Screening 10/20/2025 Colonoscopy 10/20/2025 10/21/2015 DTaP,Tdap,and Td Vaccines (2 - Td or Tdap) 05/19/2026 05/19/2016 Hepatitis C Screening Completed 09/15/2023 Procedures * Due to [place] [employer] law, this organization might not be sharing negative HIV tests. Procedure Name Priority Date/Time Associated Diagnosis Comments HEPATITIS C ANTIBODY W/REFLEX TO HCV RNA, QUANTITATIVE PCR Routine 09/15/2023 3:48 PM EDT Chronic autoimmune hepatitis from Last 3 Months or Most Recently Relevant to Health Maintenance Results * Due to [place] [employer] law, this organization might not be sharing negative HIV tests. * Hepatitis C Antibody w/Reflex to PCR (09/15/2023 3:48 PM EDT) Hepatitis C Antibody NON-REACT MICHEAL NON-REACT MICHEAL 09/15/2023 10:45 PM EDT [employer] Comment: HCV antibody was non-reactive. There is no laboratory evidence of HCV infection. In most cases, no further action is required. However, if recent HCV exposure is suspected, a test for HCV RNA (test code 29555) is suggested. For additional information please refer to http://education.Xopik/faq/PWH76c7 (This link is being provided for informational/ educational purposes only.) Blood Structure of peripheral vein / Unknown Venipuncture / Unknown 09/15/2023 3:48 PM EDT 09/15/2023 3:48 PM EDT Narrative [facility] - 09/15/2023 10:45 PM EDT [facility] Received Date: us Amber Islas MD LAB BLOOD ORDERABLES Final Resul t [facility] [address], [place] [address], [place] [phone] [facility] [address], [place] [address], [place] [phone] from Last 3 Months or Most Recently Relevant to Health Maintenance Insurance [facility] Advance Directives Healthcare Agents on File Name Relationship Healthcare Agent Relationshi p Communication Milena Avila Daughter Alternate Health Care Age nt Care Teams Maintenance Worker Swimming Pool Relationship Specialty Start Date End Date Becca Sprague [address] [place] [address] PCP - General Internal Medicine 08/16/19
== END 2025-02-12 14:43 | disposition home or self-care (01) ==
LOC: HO.MAMMO 14:42
PROVIDERS: PCP Internal Medicine; Visit Provider Internal Medicine
DX: Z12.31 Encounter for screening mammogram for malignant neoplasm of breast (principal)
CPT/HCPCS: 77063; 77067

== ENCOUNTER → 2025-02-12 15:15 | Outpatient (BNV) | payer MEDICARE, MEDICAID, SELFPAY | PROVIDERS: PCP Internal Medicine; Visit Provider Internal Medicine | DX: Z12.31 Encounter for screening mammogram for malignant neoplasm of breast (principal) | CPT/HCPCS: 77063; 77067 ==